=== PATIENT | female | born 1980 | race Caucasian/White ===

== ENCOUNTER 2016-11-22 16:21 | Emergency (ER) | payer MEDICAID, OTHER ==
[~2016-11-22] VITALS: Ht 162.6 cm; Wt 81.6 kg
--- OUTSIDE RECORDS SUMMARY | 2016-11-22 16:27 | XMS REPORT | Clinical Summary ---
Author Author [facility] Organization [facility] Address Unknown Phone Unavailable Care Team Providers Care Team Psychologist Name Role Phone PCP Unavailable Source Comments Some departments are not documenting in the electronic medical record. If you do not see the information that you expected, contact Release of Information in the Health Information Management department at [phone] for further assistance in locating additional records.[facility] Allergies Not on File Current Medications Not on file Active Problems Not on file Social History Tobacco Use Types Packs/Day Years Used Date Never Assessed Sex Assigned at Date Recorded Not on file Last Filed Vital Signs Not on file Plan of Treatment Health Maintenance Due Date Last Done Comments PHYSICAL (COMPREHENSIVE) 02/02/1988 EXAM PERTUSSIS VACCINE 02/02/1992 TETANUS VACCINE 1998 CERVICAL CANCER SCREENING 2011 INFLUENZA VACCINE 12/15/2016 Results Not on filefrom Last 3 Months
--- NOTE | 2016-11-22 16:49 | ED Neurological Problem ---
General Stated Complaint: RT ARM PAIN Source: patient Exam Limitations: no limitations History of Present Illness Time seen by provider: 16:48 Initial Comments To ER with a one-week history of pain down both arms but primarily affecting the right arm which she reports to be weaker than the left. She states that she has a bad back. This occasionally flares up and causes her some sciatic type pains. No injury. Severity: moderate Allergies and Home Medications Allergies Coded Allergies: ketorolac (Unverified Allergy, Unknown, 08/19/15) Constitutional: see HPI Eyes: No Symptoms Reported Ears, Nose, Mouth, Throat: no symptoms reported Respiratory: no symptoms reported Cardiovascular: no symptoms reported Genitourinary: no symptoms reported Musculoskeletal: see HPI Skin: see HPI Psychiatric/Neurological: See HPI Past Hlxfjgb-Pyjnye-Bzpyws Hx Patient Social History Recent Foreign Travel: No Contact w/Someone Who Travel: No Surgeries HX Surgeries: Yes (back surgery) Surgeries: Section Respiratory Hx Respiratory Disorders: No Cardiovascular Hx Cardiac Disorders: No Neurological Hx Neurological Disorders: No Reproductive System Hx Reproductive Disorders: No Genitourinary Hx Genitourinary Disorders: No Gastrointestinal Hx Gastrointestinal Disorders: No Musculoskeletal Hx Musculoskeletal Disorders: No Endocrine Hx Endocrine Disorders: No Endocrine Disorders: Diabetes, Insulin dep HEENT HX ENT Disorders: No Cancer Hx Cancer: No Psychosocial Hx Psychiatric Problems: No Integumentary HX Skin/Integumentary Disorder: No Blood Transfusions Hx Blood Disorders: No Physical Exam Vital Signs Capillary Refill : General Appearance: WD/WN, no apparent distress HEENT: PERRL/EOMI, normal ENT inspection Neck: non-tender, full range of motion Respiratory: no respiratory distress, no accessory muscle use Gastrointestinal: normal bowel sounds, non tender, soft Extremities: normal range of motion, non-tender, other (right electrical experimental mechanic strength 4 out of 5, left electrical experimental mechanic strength 5 out of 5.) Neurologic/Psychiatric: alert, normal mood/affect, oriented x 3 Crainal Nerves: normal hearing, normal speech, PERRL Motor/Sensory: other (Left forearm is reported to be very sensitive to even light touch) Skin: normal color, warm/dry Departure Impression Impression: Primary Impression: Cervical radiculopathy Disposition: 01 HOME, SELF-CARE Condition: Stable Departure-Patient Inst. Decision time for Depature: 16:50 Referrals: [facility] (PCP/Family) Primary Care Physician Patient Instructions: Radiculopathy Add. Discharge Instructions: 1. Medication as directed 2. Return to ER for any concerns 3. Follow-up with [facility] to discuss an MRI if they feel this is appropriate. Scripts Gabapentin (Gabapentin) 300 Mg Capsule 300 MG PO TID, #30 CAP Prov: LEONARDO EVANS APRN 11/22/16 Prednisone (Prednisone) 20 Mg Tab 40 MG PO DAILY, #8 TAB Prov: LEONARDO EVANS APRN 11/22/16 LEONARDO EVANS APRN Nov 22, 2016 16:49
[2016-11-22] MEDS ORDERED: GABA-488 PO (16:51)
[2016-11-22] MEDS ORDERED: PRD20T PO (16:51)
[2016-11-22 17:01] VITALS: BP 152/106
== END 2016-11-22 17:01 | disposition home or self-care (01) ==
LOC: EDUNIT# 16:21 → ER 16:23
DX: M54.12 Radiculopathy, cervical region (principal); E11.9 Type 2 diabetes mellitus without complications; Z87.59 Personal history of other complications of pregnancy, childbirth and the puerperium
CPT/HCPCS: 99281

== ENCOUNTER 2017-07-10 16:24 | Observation (INO) | payer SELFPAY ==
[~2017-07-10] VITALS: Ht 157.5 cm; Wt 69.9 kg
[~2017-07-10 16:24] MED LIST: GABA-488 PO; PRD20T PO
--- OUTSIDE RECORDS SUMMARY | 2017-07-10 16:30 | XMS REPORT ---
Author Author [facility] Address [address] [place] [address] Care Team Providers Care Collector Of Port Name Role Phone KIAN GONZALEZ Unavailable PROBLEMS Unknown Problems ALLERGIES No Information SOCIAL HISTORY Never Assessed PLAN OF CARE VITAL SIGNS MEDICATIONS Unknown Medications RESULTS No Results PROCEDURES No Known procedures IMMUNIZATIONS No Known Immunizations MEDICAL (GENERAL) HISTORY Type Description Date Medical History type II diabetes Medical History diabetic nephropathy
--- OUTSIDE RECORDS SUMMARY | 2017-07-10 16:30 | XMS REPORT ---
Author Author KIAN [facility]ALEZ [facility] Address [address] [place] [address] Care Team Providers Care Mail Handler Sorter Name Role Phone KIAN GONZALEZ Unavailable PROBLEMS Unknown Problems ALLERGIES No Information SOCIAL HISTORY Never Assessed PLAN OF CARE VITAL SIGNS MEDICATIONS Unknown Medications RESULTS No Results PROCEDURES No Known procedures IMMUNIZATIONS No Known Immunizations MEDICAL (GENERAL) HISTORY Type Description Date Medical History type II diabetes Medical History diabetic nephropathy
--- OUTSIDE RECORDS SUMMARY | 2017-07-10 16:30 | XMS REPORT | Clinical Summary ---
Author Author [facility] Organization [facility] Address Unknown Phone Unavailable Care Team Providers Care Community Health Outreach Worker Name Role Phone Alfred Diaz MD PCP Unavailable Source Comments Some departments are not documenting in the electronic medical record. If you do not see the information that you expected, contact Release of Information in the Health Information Management department at [phone] for further assistance in locating additional records.[facility] Allergies Not on File Current Medications Not on file Active Problems Not on file Social History Tobacco Use Types Packs/Day Years Used Date Never Assessed Sex Assigned at Date Recorded Not on file Last Filed Vital Signs Not on file Plan of Treatment Health Maintenance Due Date Last Done Comments PHYSICAL (COMPREHENSIVE) 02/02/1988 EXAM PERTUSSIS VACCINE 02/02/1992 HIV SCREENING 02/02/1996 TETANUS VACCINE 1998 CERVICAL CANCER SCREENING 2011 INFLUENZA VACCINE 01/14/2018 Results Not on filefrom Last 3 Months
--- OUTSIDE RECORDS SUMMARY | 2017-07-10 16:31 | XMS REPORT ---
Author Author KIAN Bernal Organization [facility] Address [address] [place] [address] Care Team Providers Care Suspender Cutter Name Role Phone KIAN Bernal Unavailable PROBLEMS Unknown Problems ALLERGIES Substance Reaction Event Type Date Status Adhesive Bandages Unknown Drug Allergy August, Active Toradol Unknown Non Drug Allergy August, Active ENCOUNTERS Encounter Location Date Diagnosis [facility] [id number], [place] [address] August, [facility] [id number], [place] [address] August, [facility] [id number], [place] [address] August, Acute vaginitis N76.0 ; Trichomonas vaginitis A59.01 and Vaginal discharge N89.8 IMMUNIZATIONS No Known Immunizations SOCIAL HISTORY Never Assessed REASON FOR VISIT possible rash- white bumps on vagina for about a week- no itching or burning JStrasserRN PLAN OF CARE Activity Details Follow Up prn Reason: VITAL SIGNS Height 62 in 2016-08-29 Weight 152.4 lbs 2016-08-29 Temperature 98.4 degrees Fahrenheit 2016-08-29 Heart Rate 100 bpm 2016-08-29 Respiratory Rate 20 2016-08-29 BMI 27.87 kg/m2 2016-08-29 Blood pressure systolic 132 mmHg 2016-08-29 Blood pressure diastolic 98 mmHg 2016-08-29 MEDICATIONS Medication Instructions Dosage Frequency Start Date End Date Duration Status Metformin HCl 500 MG Orally Twice a day 1 tablet with meals 12h Active Gabapentin 400 MG Orally Three times a day 1 capsule 8h Active Clindamycin HCl 300 MG Orally BID 1 capsule 12h August, August, 7 days Active Levemir FlexTouch 100 UNIT/ML Subcutaneous HS 12 Units Active Novolin 70/30 PenFill Active Metronidazole 500 MG Orally once now 4 tablets now August, August, 1 days Active RESULTS Name Result Date Reference Range CULTURE, GENITAL 2016-08-29 Genital Culture, Routine Final report Result 1 Yeast isolated. Result 2 Result 3 PAP TEST W/ HPV REGARDLESS 2016-08-29 DIAGNOSIS: Specimen adequacy: Clinician provided ICD10: Performed by: QC reviewed by: . . Pathologist provided ICD10: Note: HPV, high-risk Negative Negative PDF Report 2016-08-29 PDF Report1 LCLS CULTURE, GENITAL 2016-08-29 Genital Culture, Routine Final report Result 1 Yeast isolated. Result 2 Result 3 PAP TEST W/ HPV REGARDLESS 2016-08-29 DIAGNOSIS: Specimen adequacy: Clinician provided ICD10: Performed by: QC reviewed by: . . Pathologist provided ICD10: Note: HPV, high-risk Negative Negative GC/CHLAM PROBE (STATE) 2016-08-29 CHLAMYDIA Negative GC Negative PDF Report 2016-08-29 PDF Report1 LCLS CULTURE, GENITAL 2016-08-29 Genital Culture, Routine Final report Result 1 Yeast isolated. Result 2 Result 3 PAP TEST W/ HPV REGARDLESS 2016-08-29 DIAGNOSIS: Specimen adequacy: Clinician provided ICD10: Performed by: QC reviewed by: . . Pathologist provided ICD10: Note: HPV, high-risk Negative Negative GC/CHLAM PROBE (STATE) 2016-08-29 CHLAMYDIA Negative GC Negative TRICHOMONAS (IN HOUSE) 2016-08-29 TRICHOMONAS positive Control Lot # Exp date PDF Report 2016-08-29 PDF Report1 LCLS BACTERIAL VAGINOSIS (IN HOUSE) 2016-08-29 RESULTS positive Control Lot # Exp date PROCEDURES Procedure Date Ordered Result Body Site SCHROEDER VAG, DNA, DIR PROBE August 29, 2016 TRICHOMONAS ASSAY W/OPTIC August 29, 2016 SPECIMEN HANDLING August 29, 2016 CULTURE, BACTERIA, OTHER August 29, 2016 No Charge August 29, 2016 INSTRUCTIONS MEDICATIONS ADMINISTERED No Known Medications MEDICAL (GENERAL) HISTORY Type Description Date Medical History type II diabetes Medical History diabetic nephropathy
[2017-07-10] MEDS ORDERED: NS IV 1000 ML 1,000 ML IV ONE (16:33)
--- NOTE | 2017-07-10 16:40 | ED General ---
General Stated Complaint: ELEVATED BLOOD SUGAR, CONFUSION Source of Information: Patient Exam Limitations: Physical Impairments History of Present Illness Date Seen by Provider: Jul 10, 2017 Time Seen by Provider: 16:25 Initial Comments Here from [facility] with report of high blood sugar in the clinic. Patient has altered mental status which limits the history. She does answer to her name and knows her date of . She is confused. It does appear that she has been seen both at the [facility] or ER at [place] and at [facility] today in follow-up. Blood sugar has been elevated. It was 200 read on 2 occasions at the clinic today and she was given 10 units of insulin subcutaneous. EMS did show blood sugar 421. Patient remains confused. EMS reports that she has a mild temperature. Unsure of underlying etiology. It does appear that she has some history of noncompliance with her diabetes medication regimen. Timing/Duration: 1-3 Hours Severity: Moderate Associated Systoms: No Nausea/Vomiting, Weakness Allergies and Home Medications Allergies Coded Allergies: ketorolac (Unverified Allergy, Unknown, 08/19/15) Home Medications Gabapentin 300 Mg Capsule, 300 MG PO TID Prescribed by: LEONARDO EVANS on 11/22/161650 Prednisone 20 Mg Tab, 40 MG PO DAILY Prescribed by: LEONARDO EVANS on 11/22/161650 Patient Home Medication List Home Medication List Reviewed: Yes Constitutional: see HPI Psychiatric/Neurological: See HPI Other Unable to complete review of systems due to altered mental status. All Other Systems Reviewed Negative Unless Noted: No Past Omkmhce-Jijxfd-Qbnmoi Hx Patient Social History Smoking Status: Current Everyday Smoker Type Used: Cigarettes 2nd Hand Smoke Exposure: Yes Recent Hopitalizations: No Seasonal Allergies Seasonal Allergies: No Surgeries History of Surgeries: Yes (back surgery, cyst removal) Surgeries: Breast, Section, Tubal Ligation Respiratory History of Respiratory Disorde: No Cardiovascular History of Cardiac Disorders: Yes Cardiac Disorders: Hypertension Neurological History of Neurological Disord: Yes Neurological Disorders: Neuropathy Reproductive System Hx Reproductive Disorders: No Female Reproductive Disorders: Ovarian Cyst Genitourinary History of Genitourinary Disor: No Gastrointestinal History of Gastrointestinal Di: No Musculoskeletal History of Musculoskeletal Dis: No Endocrine History of Endocrine Disorders: Yes Endocrine Disorders: Diabetes, Insulin dep HEENT History of HEENT Disorders: No Cancer History of Cancer: No Psychosocial History of Psychiatric Problem: No Integumentary History of Skin or Integumenta: No Blood Transfusions History of Blood Disorders: No Family Medical History Other History per records as patient unable to give history Physical Exam Vital Signs Vital Signs - First Documented 07/10/17 16:25 Temp 98.1 Pulse 99 Resp 14 B/P (MAP) 132/101 (111) Pulse Ox 97 O2 Delivery Room Air Capillary Refill : General Appearance: No Apparent Distress, WD/WN HEENT: Pharynx Normal, Other (pupils pinpoint bilateral) Neck: Non Tender, Supple Respiratory: Lungs Clear, Normal Breath Sounds Cardiovascular: Regular Rate, Rhythm, No Murmur, Tachycardia Gastrointestinal: Non Tender, Soft Back: Normal Inspection, No CVA Tenderness, No Vertebral Tenderness Extremity: Normal Range of Motion, Non Tender Neurologic/Psychiatric: Alert, Oriented x3 Skin: Normal Color, Warm/Dry Focused Exam Evaluation Lactate Level Laboratory Tests 07/10/17 16:38: Lactic Acid Level 1.85 Lactic Acid Level Laboratory Tests Test 07/10/17 16:38 Lactic Acid Level 1.85 MMOL/L (0.50-2.00) Progress/Results/Core Measures Suspected Sepsis SIRS Temperature: Pulse: Respiratory Rate: Laboratory Tests 07/10/17 16:38: White Blood Count 9.3 Blood Pressure / Mean: Laboratory Tests 07/10/17 16:38: Lactic Acid Level 1.85 Laboratory Tests 07/10/17 16:38: Creatinine 0.65, INR Comment 0.9, Platelet Count 336, Total Bilirubin 0.4 Results/Orders Lab Results Laboratory Tests Test 07/10/17 16:38 07/10/17 17:18 07/10/17 17:19 07/10/17 18:02 Range/Units White Blood Count 9.3 4.3-11.0 10^3/uL Red Blood Count 4.89 4.35-5.85 10^6/uL Hemoglobin 13.8 11.5-16.0 G/DL Hematocrit 40 35-52 % Mean Corpuscular Volume 82 80-99 FL Mean Corpuscular Hemoglobin 28 25-34 PG Mean Corpuscular Hemoglobin Concent 35 32-36 G/DL Red Cell Distribution Width 14.5 10.0-14.5 % Platelet Count 336 130-400 10^3/uL Mean Platelet Volume 9.8 7.4-10.4 FL Neutrophils (%) (Auto) 64 42-75 % Lymphocytes (%) (Auto) 26 12-44 % Monocytes (%) (Auto) 6 0-12 % Eosinophils (%) (Auto) 4 0-10 % Basophils (%) (Auto) 0 0-10 % Neutrophils # (Auto) 5.9 1.8-7.8 X 10^3 Lymphocytes # (Auto) 2.4 1.0-4.0 X 10^3 Monocytes # (Auto) 0.6 0.0-1.0 X 10^3 Eosinophils # (Auto) 0.4 H 0.0-0.3 10^3/uL Basophils # (Auto) 0.0 0.0-0.1 10^3/uL Prothrombin Time 12.6 12.2-14.7 SEC INR Comment 0.9 0.8-1.4 Activated Partial Thromboplast Time 32 24-35 SEC Sodium Level 134 L 135-145 MMOL/L Potassium Level 5.1 H 3.6-5.0 MMOL/L Chloride Level 102 98-107 MMOL/L Carbon Dioxide Level 24 21-32 MMOL/L Anion Gap 8 5-14 MMOL/L Blood Urea Nitrogen 10 7-18 MG/DL Creatinine 0.65 0.60-1.30 MG/DL Estimat Glomerular Filtration Rate > 60 BUN/Creatinine Ratio 15 Glucose Level 340 H 70-105 MG/DL Lactic Acid Level 1.85 0.50-2.00 MMOL/L Calcium Level 9.2 8.5-10.1 MG/DL Phosphorus Level 3.8 2.3-4.7 MG/DL Magnesium Level 2.2 1.8-2.4 MG/DL Total Bilirubin 0.4 0.1-1.0 MG/DL Aspartate Amino Transf (AST/SGOT) 21 5-34 U/L Alanine Aminotransferase (ALT/SGPT) 11 0-55 U/L Alkaline Phosphatase 119 40-136 U/L Troponin I < 0.30 <0.30 NG/ML C-Reactive Protein High Sensitivity 0.38 0.00-0.50 MG/DL Total Protein 7.7 6.4-8.2 GM/DL Albumin 3.6 3.2-4.5 GM/DL TSH [place] Testing 0.87 0.35-4.94 UIU/ML Urine Color YELLOW Urine Clarity CLEAR Urine pH 6 5-9 Urine Specific [place] 1.015 L 1.016-1.022 Urine Protein 2+ H NEGATIVE Urine Glucose (UA) 4+ H NEGATIVE Urine Ketones NEGATIVE NEGATIVE Urine Nitrite NEGATIVE NEGATIVE Urine Bilirubin NEGATIVE NEGATIVE Urine Urobilinogen NORMAL NORMAL MG/DL Urine Leukocyte Esterase 1+ H NEGATIVE Urine RBC (Auto) 1+ H NEGATIVE Urine RBC NONE /HPF Urine WBC 5-10 H /HPF Urine Squamous Epithelial Cells 2-5 /HPF Urine Crystals NONE /LPF Urine Bacteria MODERATE H /HPF Urine Casts NONE /LPF Urine Mucus NEGATIVE /LPF Urine Culture Indicated YES Urine Test NEGATIVE NEGATIVE Urine Opiates Screen NEGATIVE NEGATIVE Urine Oxycodone Screen NEGATIVE NEGATIVE Urine Methadone Screen NEGATIVE NEGATIVE Urine Propoxyphene Screen NEGATIVE NEGATIVE Urine Barbiturates Screen NEGATIVE NEGATIVE Ur Tricyclic Antidepressants Screen NEGATIVE NEGATIVE Urine Phencyclidine Screen NEGATIVE NEGATIVE Urine Amphetamines Screen NEGATIVE NEGATIVE Urine Methamphetamines Screen NEGATIVE NEGATIVE Urine Benzodiazepines Screen POSITIVE H NEGATIVE Urine Cocaine Screen NEGATIVE NEGATIVE Urine Cannabinoids Screen NEGATIVE NEGATIVE Glucometer 221 H 70-110 MG/DL My Orders Orders - NESSA MIJARES MD Cbc With Automated Diff (07/10/17 16:33) Comprehensive Metabolic Panel (07/10/17 16:33) Lactic Acid Analyzer (07/10/17 16:33) Blood Culture (07/10/17 16:33) Sputum Culture (07/10/17 16:33) Ua Culture If Indicated (07/10/17 16:33) Protime With Inr (07/10/17 16:33) Partial Thromboplastin Time (07/10/17 16:33) Chest 1 View, Ap/Pa Only (07/10/17 16:33) O2 (07/10/17 16:33) Saline Lock/Iv-Start (07/10/17 16:33) Vital Signs Adult Sepsis Patie Q1H (07/10/17 16:33) Remove Rings In Anticipation O (07/10/17 16:33) Thyroid Analyzer (07/10/17 16:33) Hs C Reactive Protein (07/10/17 16:33) Magnesium (07/10/17 16:33) Phosphorus (07/10/17 16:33) Ns Iv 1000 Ml (Sodium Chloride 0.9%) (07/10/17 16:33) Hcg,Qualitative Urine (07/10/17 17:26) Urine Culture (07/10/17 17:18) Drug Screen Stat (Urine) (07/10/17 17:47) Ceftriaxone Injection (Rocephin Injectio (07/10/17 18:00) Ekg Tracing (07/10/17 17:58) Troponin I (07/10/17 17:58) Acetaminophen Tablet (Tylenol Tablet) (07/10/17 18:16) Medications Given in ED Current Medications Medications Dose Ordered Sig/Tomasz Route Start Time Stop Time Status Last Admin Dose Admin Ceftriaxone Sodium 1000 mg/ Sodium Chloride 100 ml @ 200 mls/hr ONCE ONCE IV 07/10/17 18:00 07/10/17 18:29 07/10/17 18:05 200 MLS/HR Sodium Chloride 1,000 ml @ 0 mls/hr Q0M ONCE IV 07/10/17 16:33 07/10/17 16:37 DC 07/10/17 16:30 1,000 MLS/HR Vital Signs/I&O Vital Sign - Last 12Hours 07/10/17 16:25 Temp 98.1 Pulse 99 Resp 14 B/P (MAP) 132/101 (111) Pulse Ox 97 O2 Delivery Room Air Capillary Refill : Progress Note : Progress Note Seen and evaluated. IV by EMS with saline 500 mL bolus running. Labs, UA, blood cultures, lactic acid and UDS ordered. Saline chest x-ray ordered. 1800 : Is improving. Patient did receive additional liter of normal saline. Rocephin 1 g IV ordered for urinary tract infection. 180: I discussed the case with Dr. Stallings, on-call for [facility]. Given patient's history of persistently uncontrolled hyperglycemia and the altered mental status today, we will admit the patient for observation and initiate sliding scale insulin to evaluate insulin dosing requirements. EKG and troponin added. EKG does not show any significant findings. I did discuss the admission with the patient and her friends. She accepts and agrees with admission. Tylenol 1 g by mouth given for headache. ECG Initial ECG Impression Date: Jul 10, 2017 Initial ECG Impression Time: 18:12 Initial ECG Rate: 94 Initial ECG Rhythm: Normal Sinus Initial ECG Intervals: Normal Initial ECG Impression: Normal Initial ECG Comparisson: Unchanged Comment Sinus rhythm with normal axis. No evidence of ST elevation ND. Similar to previous. Interpreted by me. Diagnostic Imaging Diagonstic Imaging: Xray Plain Films/CT/US/NM/MRI: chest Comments NAME: [facility] REC#: [id number] PT STATUS: REG ER : 1980 PHYSICIAN: NESSA MIJARES MD ADMIT DATE: 07/10/17/ER Signed Date of Exam: 07/10/17 CHEST 1 VIEW, AP/PA ONLY INDICATION: Elevated blood sugar. TIME OF EXAM: 5:32 p.m. COMPARISON: Correlation is made with prior study from 08/19/2015. The heart size is normal. The pulmonary vascularity is unremarkable. The lungs are clear. No infiltrate, effusion or pneumothorax is detected. IMPRESSION: No acute cardiopulmonary process is detected. Dictated by: Dictated on workstation # [id number] Dict: 07/10/171734 Trans: 07/10/171816 Interpreted by: ANGELICA JOYCE MD Electronically signed by: ANGELICA JOYCE MD 07/10/171816 Departure Communication (Admissions) Time/Spoke to Admitting Phy: 18:04 Impression Impression: Primary Impression: Uncontrolled diabetes mellitus with hyperglycemia Qualified Codes: E13.65 - Other specified diabetes mellitus with hyperglycemia ; Z79.4 - nursing home (current) use of insulin Additional Impression: Urinary tract infection Qualified Codes: N30.00 - Acute cystitis without hematuria Disposition: ADMITTED INPATIENT Condition: Stable Admissions Decision to Admit Reason: Admit from ER (General) Decision to Admit/Date: Jul 10, 2017 Time/Decision to Admit Time: 18:26 Departure-Patient Inst. Referrals: [facility] (PCP/Family) Primary Care Physician NESSA MIJARES MD Jul 10, 2017 16:40
[2017-07-10 16:49] LABS: BASOPHILS % (AUTO) 0 % (0-10); EOSINOPHILS # (AUTO) 0.4 10^3/uL (0.0-0.3); EOSINOPHILS % (AUTO) 4 % (0-10); HEMATOCRIT 40 % (35-52); HEMOGLOBIN 13.8 G/DL (11.5-16.0); LYMPHOCYTES # (AUTO) 2.4 X 10^3 (1.0-4.0); LYMPHOCYTES % (AUTO) 26 % (12-44); MEAN CORPUSCULAR HEMOGLOBIN 28 PG (25-34); MEAN CORPUSCULAR HGB CONC 35 G/DL (32-36); MEAN CORPUSCULAR VOLUME 82 FL (80-99); MEAN PLATELET VOLUME 9.8 FL (7.4-10.4); MONOCYTES # (AUTO) 0.6 X 10^3 (0.0-1.0); MONOCYTES % (AUTO) 6 % (0-12); NEUTROPHILS # (AUTO) 5.9 X 10^3 (1.8-7.8); NEUTROPHILS % (AUTO) 64 % (42-75); PLATELET COUNT 336 10^3/uL (130-400); RED BLOOD COUNT 4.89 10^6/uL (4.35-5.85); RED CELL DISTRIBUTION WIDTH 14.5 % (10.0-14.5); WHITE BLOOD COUNT 9.3 10^3/uL (4.3-11.0)
[2017-07-10 17:01] LABS: INR 0.9 (0.8-1.4); PROTHROMBIN TIME PATIENT 12.6 SEC (12.2-14.7)
[2017-07-10 17:11] LABS: ALANINE AMINOTRANSFERASE 11 U/L (0-55); ALBUMIN 3.6 GM/DL (3.2-4.5); ALKALINE PHOSPHATASE 119 U/L (40-136); BILIRUBIN,TOTAL 0.4 MG/DL (0.1-1.0); BUN/CREATININE RATIO 15; CALCIUM 9.2 MG/DL (8.5-10.1); CARBON DIOXIDE 24 MMOL/L (21-32); CHLORIDE 102 MMOL/L (98-107); CREATININE SERUM 0.65 MG/DL (0.60-1.30); GFR ESTIMATED > 60; GLUCOSE 340 MG/DL (70-105); MAGNESIUM 2.2 MG/DL (1.8-2.4); PHOSPHORUS 3.8 MG/DL (2.3-4.7); POTASSIUM 5.1 MMOL/L (3.6-5.0); SODIUM 134 MMOL/L (135-145); TOTAL PROTEIN 7.7 GM/DL (6.4-8.2)
[2017-07-10 17:30] LABS: BILIRUBIN,URINE NEGATIVE (NEGATIVE); CLARITY,URINE CLEAR; COLOR,URINE YELLOW; GLUCOSE, URINE (UA) 4+ (NEGATIVE); KETONES,URINE NEGATIVE (NEGATIVE); LEUKOCYTE ESTERASE ,URINE 1+ (NEGATIVE); NITRITE,URINE NEGATIVE (NEGATIVE); PH,URINE 6 (5-9); PROTEIN,URINE 2+ (NEGATIVE); UROBILINOGEN,URINE NORMAL (NORMAL)
[2017-07-10 17:31] LABS: TSH (THYROID ANALYZER) 0.87 UIU/ML (0.35-4.94)
--- NOTE | 2017-07-10 17:38 | Diagnostic Imaging Report ---
INDICATION: Elevated blood sugar. TIME OF EXAM: 5:32 p.m. COMPARISON: Correlation is made with prior study from 08/19/2015. The heart size is normal. The pulmonary vascularity is unremarkable. The lungs are clear. No infiltrate, effusion or pneumothorax is detected. IMPRESSION: No acute cardiopulmonary process is detected. Dictated by: Dictated on workstation # [id number]
[2017-07-10 17:39] LABS: BACTERIA,URINE MODERATE /HPF
[2017-07-10] MEDS ORDERED: cefTRIAXone INJECTION 1,000 MG in NS (IVPB) 100 ML IV ONE (18:00)
[2017-07-10 18:03] LABS: AMPHETAMINE SCREEN, URINE NEGATIVE (NEGATIVE); BARBITURATE SCREEN URINE NEGATIVE (NEGATIVE); BENZODIAZEPINES SCREEN URINE POSITIVE (NEGATIVE); CANNABINOID SCREEN, URINE NEGATIVE (NEGATIVE); COCAINE SCREEN URINE NEGATIVE (NEGATIVE); METHADONE STAT NEGATIVE (NEGATIVE); METHAMPHETAMINE SCREEN URINE S NEGATIVE (NEGATIVE); OPIATE SCREEN URINE NEGATIVE (NEGATIVE); OXYCODONE STAT NEGATIVE (NEGATIVE); PROPOXYPHENE STAT NEGATIVE (NEGATIVE); TRICYCLIC ANTIDEPRESSANTS SCRE NEGATIVE (NEGATIVE)
[2017-07-10] MEDS ORDERED: ACETAMINOPHEN 500 MG TAB (TYLENOL) PO STA (18:16)
--- OUTSIDE RECORDS SUMMARY | 2017-07-10 18:42 | XMS REPORT | Clinical Summary ---
Author Author [facility] Organization [facility] Address Unknown Phone Unavailable Care Team Providers Care Repeat Chief Name Role Phone Alfred Diaz MD PCP Unavailable Source Comments Some departments are not documenting in the electronic medical record. If you do not see the information that you expected, contact Release of Information in the Health Information Management department at [phone] for further assistance in locating additional records.[facility] Allergies Not on File Current Medications [...]
[2017-07-10 19:50] VITALS: BP 139/92
[2017-07-10] MEDS ORDERED: NS IV 1000 ML 1,000 ML ONE (20:02)
[2017-07-10] MEDS ORDERED: CATHETER FLUSH 10 ML SYR IV PRN (20:15)
[2017-07-10] MEDS ORDERED: ACETAMINOPHEN 500 MG TAB (TYLENOL) PO PRN (20:15)
[2017-07-10] MEDS: inSUlin (REGULAR) HUMAN 1 UNIT/0.01 ML (CHARGE PER UNIT) SC SCH (21:50)
[2017-07-10] MEDS: NS IV 1000 ML 1,000 ML IV SCH (21:50)
[2017-07-11] VITALS: BP 136/77
[2017-07-11] MEDS ORDERED: METF1000 PO ×2 (02:10→11:16)
[2017-07-11] MEDS ORDERED: LABE100T2 PO ×2 (02:10→11:16)
[2017-07-11] MEDS ORDERED: [UNRECOGNIZED DRUG - CODE] MC (02:10)
[2017-07-11] MEDS ORDERED: ATOR80TA64 PO ×2 (02:10→11:16)
[2017-07-11] MEDS ORDERED: DULO30CA48 PO (02:10)
[2017-07-11] MEDS ORDERED: NAPR220C46 PO (02:10)
[2017-07-11] MEDS ORDERED: INSU100I23 SQ ×2 (02:10→11:16)
[2017-07-11] MEDS ORDERED: INSU100V5 SQ (02:10)
[2017-07-11] MEDS ORDERED: IBUPROFEN 800 MG (MOTRIN) TAB PO PRN (03:00)
[2017-07-11 03:22] LABS: BASOPHILS % (AUTO) 0 % (0-10); EOSINOPHILS # (AUTO) 0.4 10^3/uL (0.0-0.3); EOSINOPHILS % (AUTO) 4 % (0-10); HEMATOCRIT 35 % (35-52); HEMOGLOBIN 12.3 G/DL (11.5-16.0); LYMPHOCYTES # (AUTO) 3.4 X 10^3 (1.0-4.0); LYMPHOCYTES % (AUTO) 33 % (12-44); MEAN CORPUSCULAR HEMOGLOBIN 29 PG (25-34); MEAN CORPUSCULAR HGB CONC 35 G/DL (32-36); MEAN CORPUSCULAR VOLUME 83 FL (80-99); MEAN PLATELET VOLUME 9.8 FL (7.4-10.4); MONOCYTES # (AUTO) 0.6 X 10^3 (0.0-1.0); MONOCYTES % (AUTO) 6 % (0-12); NEUTROPHILS # (AUTO) 5.8 X 10^3 (1.8-7.8); NEUTROPHILS % (AUTO) 57 % (42-75); PLATELET COUNT 322 10^3/uL (130-400); RED BLOOD COUNT 4.27 10^6/uL (4.35-5.85); RED CELL DISTRIBUTION WIDTH 14.6 % (10.0-14.5); WHITE BLOOD COUNT 10.2 10^3/uL (4.3-11.0)
[2017-07-11 04:00] VITALS: BP 135/65
[2017-07-11] MEDS: NS IV 1000 ML 1,000 ML IV SCH (05:51)
[2017-07-11] MEDS: inSUlin (REGULAR) HUMAN 1 UNIT/0.01 ML (CHARGE PER UNIT) SC SCH ×2 (05:51→11:29)
[2017-07-11] MEDS ORDERED: INFLUENZA TRIvalent 2017-2018 0.5 ML/45 MCG SYR IM ONE (07:15)
[2017-07-11 08:00] VITALS: BP 127/74
[2017-07-11] MEDS ORDERED: cefTRIAXone 1 GM/NS 100 ML IVPB IV SCH ×2 (09:00)
[2017-07-11 09:37] LABS: BUN/CREATININE RATIO 25; CALCIUM 8.2 MG/DL (8.5-10.1); CARBON DIOXIDE 22 MMOL/L (21-32); CHLORIDE 108 MMOL/L (98-107); CREATININE SERUM 0.59 MG/DL (0.60-1.30); GFR ESTIMATED > 60; GLUCOSE 246 MG/DL (70-105); POTASSIUM 3.7 MMOL/L (3.6-5.0); SODIUM 136 MMOL/L (135-145)
[2017-07-11] MEDS ORDERED: FLUO20CA25 PO (11:16)
[2017-07-11] MEDS ORDERED: NITR-65 PO (11:16)
--- NOTE | 2017-07-11 11:20 | Discharge Instructions ---
Discharge [facility] Discharge Medications New, Converted or Re-Newed RX: Transmitted to Pharmacy New Medications: Nitrofurantoin Monohyd/M-Cryst (Macrobid 100 mg Capsule) 100 Mg Capsule 1 TAB PO BID for 3 Days, #6 CAP 0 Refills Changed Medications: Fluoxetine HCl (Fluoxetine HCl) 20 Mg Capsule 20 MG PO DAILY for 30 Days, #30 CAP 0 Refills (Changed from: Fluoxetine ( Fluoxetine HCl) 100 Gm Powder 200 Gm MC DAILY) Insulin Lispro (Humalog Kwikpen) 100 Unit/1 Ml Insuln.pen 10 UNIT SQ WM, #1 EA (Changed from: 8 UNIT) LAST FILLED 17 Labetalol HCl (Labetalol HCl) 100 Mg Tablet 100 MG PO BID, #60 TAB (Changed from: Q8H) Metformin HCl (Metformin HCl) 1,000 Mg Tablet 1000 MG PO BID WITH MEALS, #60 TAB 0 Refills (Changed from: Refills: ; Removed Instructions) Continued Medications: Atorvastatin Calcium (Lipitor) 80 Mg Tablet 80 MG PO DAILY, #30 TAB 0 Refills (This prescription has been renewed) LAST FILLED #30 17 Insulin Determir (Levemir) 1,000 Units/10 Ml Soln 15 UNITS SQ DAILY, EA LAST FILLED 03-30-17 Naproxen Sodium (Naproxen Sodium) 220 Mg Capsule 220 MG PO DAILY, CAP Patient Instructions Goal/Follow Up Appt: Follow up with Raghu Collins APRN 07/23 at 11 am. However, please call clinic with blood sugar readings in the next day or two so we can adjust insulin as needed. Patient Instructions: Prescriptions were sent to the pharmacy at [facility] for Prozac (fluoxetine), labetalol, Lipitor (atorvastatin) and metformin because based on last refill date they should be gone. Prescriptions were NOT sent for insulin due to your report that you have enough insulin to last until 07/23 and at that time a plan for obtaining insulin can be made. Go to clinic ([facility]) today after discharge and ask for Nathalia Slater to get a glucometer. [facility] to [facility] For: Fever, blood sugar not readable on meter Activity & Diet Discharge Diet: ADA Diet Copy Copies To 1: YOHANNES Gallegos BETHANY N MD Jul 11, 2017 11:20 am
--- NOTE | 2017-07-11 11:36 | Discharge Summary ---
Diagnosis/Chief Complaint Date of Admission Jul 10, 2017 at 6:37 pm Date of Discharge Jul 11, 2017 Admission Diagnosis Admission Diagnosis DMII with hyperglycemia Altered mental status Urinary tract infection Chronic back pain Chest pain Discharge Diagnosis DMII with hyperglycemia- blood sugar unreadable in clinic and remained unreadable after 10 units so she was sent to ER, found to have blood sugar in the 400s. Patient reported she has both Levemir (3 pens left) and Humalog (2 pens left) although she should be out because she uses sparingly when she thinks she may need it so she doesn't run out. She required 32 units of insulin in the 24 hours from yesterday am until today, she is typically supposed to be on 47 units daily at home, so dosing was only minimally changed on discharge- she was encouraged to use every scheduled dose because she has enough insulin until her follow-up appointment. Discharged on Levemir 15 units daily and Humalog 10 units TID with meals. Altered mental status- suspect secondary to hyperglycemia and urinary tract infection, resolved this morning. UDS positive for benzodiazepine, she denies use and does not know where a positive could have come from, and male visitor in her room reported that has happened before. Discussed that if she is unknowingly using a benzodiazepine that could cause confusion. Urinary tract infection- E coli in prelim culture, no sensitivity yet available on d/c, discharged with script for macrobid, but final culture results will need followed up Chronic back pain- she reports history of back surgery and up to 13 epidural injections with no benefit, follow-up outpatient Chest pain- chronic intermittent for over a year with reported history of stress test about a year ago that apparently did not show acute issues. EKG and troponins negative this admission. Discussed that she can be referred to Cardiology at her follow-up/establish care visit at [facility] for further evaluation, but pain may not be cardiac in nature. Chief Complaint/HPI Chief Complaint/HPI 37 yo female with history of uncontrolled diabetes and difficulty obtaining medications due to financial concerns presented to [facility] clinic for ER f/u from Lizeth Tobin. She states she was sent to ER from work due to chest pain which she has relatively often- a sharp pain in mid low chest/upper abdomen which is sometimes associated with left arm and hand numbness and sometimes tingling and pain in her entire body. She states she always has normal EKG and she had a stress test a year ago and was told she may have had a heart attack in the past, but when she requested Cardiology referral states her previous primary wanted to try medication first. Again at [facility] ER she had negative testing and was given information to follow-up at [facility] since she was unable to afford other clinic. At her clinic visit at [facility] she was noted to initially be normally responsive when roomed, but upon provider evaluation she was lethargic and poorly arousable for questions. Her blood sugar was too high to read, she was given 10 units of insulin in clinic and on recheck blood sugar was still too high to read so she was directed to the ER where work-up was unrevealing except for evidence of UTI and high blood sugar. Discharge Summary-OBS Procedures None. Discharge Physical Examination Allergies: Coded Allergies: coconut (Verified Allergy, Severe, anaphylactic reaction, 07/11/17) ketorolac (Unverified Allergy, Unknown, 08/19/15) Vitals & I&Os Intake and Output 07/11/17 00:00 Intake Total 500 ml Balance 500 ml Vital Sign - Last 12Hours Date Time Temp Pulse Resp B/P (MAP) Pulse Ox O2 Delivery O2 Flow Rate FiO2 07/11/17 09:00 Room Air 07/11/17 08:00 98.8 97 16 127/74 (91) 97 General Appearance: Alert, No Acute Distress Respiratory: Clear to Auscultation, Normal Air Movement Cardiovascular: Regular Rate, No Murmurs Abdominal: Normal Bowel Sounds, Soft, Other (ttp L mid abdomen) Extremities: No Edema Neuro: Normal Speech Psych/Mental Status: Mental Status NL Hospital Course See discharge diagnoses. Labs Laboratory Tests 07/10/17 16:38: White Blood Count 9.3, Red Blood Count 4.89, Hemoglobin 13.8, Hematocrit 40, Mean Corpuscular Volume 82, Mean Corpuscular Hemoglobin 28, Mean Corpuscular Hemoglobin Concent 35, Red Cell Distribution Width 14.5, Platelet Count 336, Mean Platelet Volume 9.8, Neutrophils (%) (Auto) 64, Lymphocytes (%) (Auto) 26, Monocytes (%) (Auto) 6, Eosinophils (%) (Auto) 4, Basophils (%) (Auto) 0, Neutrophils # (Auto) 5.9, Lymphocytes # (Auto) 2.4, Monocytes # (Auto) 0.6, Eosinophils # (Auto) 0.4H, Basophils # (Auto) 0.0, Prothrombin Time 12.6, INR Comment 0.9, Activated Partial Thromboplast Time 32, Sodium Level 134L, Potassium Level 5.1H, Chloride Level 102, Carbon Dioxide Level 24, Anion Gap 8, Blood Urea Nitrogen 10, Creatinine 0.65, Estimat Glomerular Filtration Rate > 60 , BUN/Creatinine Ratio 15, Glucose Level 340H, Lactic Acid Level 1.85, Calcium Level 9.2, Phosphorus Level 3.8, Magnesium Level 2.2, Total Bilirubin 0.4, Aspartate Amino Transf (AST/SGOT) 21, Alanine Aminotransferase (ALT/SGPT) 11, Alkaline Phosphatase 119, Troponin I < 0.30, C-Reactive Protein High Sensitivity 0.38, Total Protein 7.7, Albumin 3.6, TSH [place] Testing 0.87 07/10/17 17:18: Urine Color YELLOW, Urine Clarity CLEAR, Urine pH 6, Urine Specific [place] 1.015L, Urine Protein 2+H, Urine Glucose (UA) 4+H, Urine Ketones NEGATIVE, Urine Nitrite NEGATIVE, Urine Bilirubin NEGATIVE, Urine Urobilinogen NORMAL, Urine Leukocyte Esterase 1+H, Urine RBC (Auto) 1+H, Urine RBC NONE, Urine WBC 5- 10H, Urine Squamous Epithelial Cells 2-5, Urine Crystals NONE, Urine Bacteria MODERATEH, Urine Casts NONE, Urine Mucus NEGATIVE, Urine Culture Indicated YES, Urine Test NEGATIVE 07/10/17 17:19: Urine Opiates Screen NEGATIVE, Urine Oxycodone Screen NEGATIVE, Urine Methadone Screen NEGATIVE, Urine Propoxyphene Screen NEGATIVE, Urine Barbiturates Screen NEGATIVE, Ur Tricyclic Antidepressants Screen NEGATIVE, Urine Phencyclidine Screen NEGATIVE, Urine Amphetamines Screen NEGATIVE, Urine Methamphetamines Screen NEGATIVE, Urine Benzodiazepines Screen POSITIVEH, Urine Cocaine Screen NEGATIVE, Urine Cannabinoids Screen NEGATIVE 07/10/17 18:02: Glucometer 221H 07/10/17 20:04: Glucometer 184H 07/11/17 03:00: White Blood Count 10.2, Red Blood Count 4.27L, Hemoglobin 12.3, Hematocrit 35, Mean Corpuscular Volume 83, Mean Corpuscular Hemoglobin 29, Mean Corpuscular Hemoglobin Concent 35, Red Cell Distribution Width 14.6H, Platelet Count 322, Mean Platelet Volume 9.8, Neutrophils (%) (Auto) 57, Lymphocytes (%) (Auto) 33, Monocytes (%) (Auto) 6, Eosinophils (%) (Auto) 4, Basophils (%) (Auto) 0, Neutrophils # (Auto) 5.8, Lymphocytes # (Auto) 3.4, Monocytes # (Auto) 0.6, Eosinophils # (Auto) 0.4H, Basophils # (Auto) 0.0, Troponin I < 0.30 07/11/17 05:05: Glucometer 298H 07/11/17 09:08: Troponin I < 0.30, Sodium Level 136, Potassium Level 3.7, Chloride Level 108H, Carbon Dioxide Level 22, Anion Gap 6, Blood Urea Nitrogen 15, Creatinine 0.59L, Estimat Glomerular Filtration Rate > 60, BUN/Creatinine Ratio 25, Glucose Level 246H, Calcium Level 8.2L Microbiology 07/10/17 Urine Culture - Preliminary, Resulted Escherichia coli CXR 07/10/17 Unremarkable Discharge Instructions to patient/family Please see electronic discharge instructions given to patient. Discharge Medications Reviewed and agree with Discharge Medication list on patient's Discharge Instruction sheet Clinical Quality Measures DVT/VTE Risk/Contraindication: Risk Factor Score Per Nursin RFS Level Per Nursing on Admit: 2=Moderate Copy Copies To 1: YOHANNES Gallegos BETHANY N MD Jul 11, 2017 11:36 am
== END 2017-07-11 11:16 | disposition home or self-care (01) ==
LOC: EDUNIT# 16:24 → ER 16:25 → 4TH 18:37 → UNDOADMOB 18:37 → 4TH 19:00 → UNDODISOB 07-11 11:46
PROVIDERS: ADMIT Family Medicine; ATTEND Family Medicine
DX: E11.65 Type 2 diabetes mellitus with hyperglycemia (principal); N39.0 Urinary tract infection, site not specified; B96.20 Unspecified Escherichia coli [E. coli] as the cause of diseases classified elsewhere; R51 Headache; E11.40 Type 2 diabetes mellitus with diabetic neuropathy, unspecified; I10 Essential (primary) hypertension; F17.210 Nicotine dependence, cigarettes, uncomplicated; M54.9 Dorsalgia, unspecified; G89.29 Other chronic pain; R07.9 Chest pain, unspecified; Z79.4 Long term (current) use of insulin; Z79.899 Other long term (current) drug therapy; Z91.120 Patient's intentional underdosing of medication regimen due to financial hardship
CPT/HCPCS: 36415; 71045; 80048; 80053; 80306; 81000; 82962; 83036; 83605; 83735; 84100; 84443; 84484; 84703; 85025; 85610; 85730; 86141; 87040; 87088; 87186; 93005; 96361; 96365; G0378

== ENCOUNTER 2017-10-22 22:50 | Inpatient (IN) | payer SELFPAY ==
[~2017-10-22] VITALS: Ht 157.5 cm; Wt 79.6 kg
[~2017-10-22 22:50] MED LIST changes: +ATOR80TA64 PO; +DULO30CA48 PO; +FLUO20CA25 PO; +INSU100I23 SQ; +INSU100V5 SQ; +LABE100T6 PO; +METF10002 PO; +NAPR220C46 PO; +NITR-65 PO; +[UNRECOGNIZED DRUG - CODE] MC
[2017-10-22 23:26] LABS: BASOPHILS # (AUTO) 0.2 10^3/uL (0.0-0.1); BASOPHILS % (AUTO) 2 % (0-10); EOSINOPHILS # (AUTO) 0.1 10^3/uL (0.0-0.3); EOSINOPHILS % (AUTO) 1 % (0-10); HEMATOCRIT 35 % (35-52); LYMPHOCYTES # (AUTO) 6.6 X 10^3 (1.0-4.0); LYMPHOCYTES % (AUTO) 71 % (12-44); MEAN CORPUSCULAR HEMOGLOBIN 28 PG (25-34); MEAN CORPUSCULAR HGB CONC 34 G/DL (32-36); MEAN CORPUSCULAR VOLUME 81 FL (80-99); MEAN PLATELET VOLUME 9.9 FL (7.4-10.4); MONOCYTES % (AUTO) 11 % (0-12); NEUTROPHILS # (AUTO) 1.3 X 10^3 (1.8-7.8); NEUTROPHILS % (AUTO) 14 % (42-75); PLATELET COUNT 218 10^3/uL (130-400); RED BLOOD COUNT 4.35 10^6/uL (4.35-5.85); RED CELL DISTRIBUTION WIDTH 15.2 % (10.0-14.5); WHITE BLOOD COUNT 9.2 10^3/uL (4.3-11.0)
[2017-10-22] MEDS ORDERED: ASPIRIN 81 MG CHEW (CHILDREN'S ASA) PO ONE (23:30)
--- NOTE | 2017-10-22 23:30 | ED Chest Pain ---
General Chief Complaint: Chest Pain Stated Complaint: SOB, CP Nursing Triage Note: Patient reports SOA and chest pain x 2 days ago. patient reports was evaluated here recently for lower extremity swelling and given a 'water pill' patient reports that she is not voiding much. Nursing Sepsis Screen: No Definite Risk Source: patient Exam Limitations: no limitations History of Present Illness Date Seen by Provider: Oct 22, 2017 Time Seen by Provider: 23:15 Initial Comments Here with report of 2 weeks of shortness of air and intermittent sharp chest pain that is central and nonradiating as well as swelling of her legs. She was seen at the clinic the other day and started on Lasix 20 mg daily for a total of 3 doses. She only took 2 of those and stopped because she was actually urinating last then more and that concerned her. She does report drinking lots of water. She is also diabetic and notes that her sugars have been high. She complains of some dysuria and suprapubic pain with urination. She does not believe she has a urinary tract infection. Denies fevers or chills but is short of breath and reports that it's worse recently. She is working on setting up appointment with Dr. Hernandez for further evaluation as well. Timing/Duration: other (2 weeks) Severity/Quality: moderate, sharp Location: central Radiation: no radiation Prior CP/Workup: no prior cardiac workup Modifying Factors: worse with exercise; improves with rest ASA po ENTERTAINMENT MUSICIAN: No NTG SL ENTERTAINMENT MUSICIAN: No Associated Symptoms: abdominal pain; No back pain; edema, fatigue; No fever/ chills, No nausea/vomiting; shortness of breath Allergies and Home Medications Allergies Coded Allergies: coconut (Verified Allergy, Severe, anaphylactic reaction, 07/11/17) ketorolac (Unverified Allergy, Unknown, 08/19/15) Home Medications Atorvastatin Calcium 80 Mg Tablet, 80 MG PO DAILY LAST FILLED #30 03-30-17 Prescribed by: ERNESTO STALLINGS on 07/11/17 1116 Fluoxetine HCl 20 Mg Capsule, 20 MG PO DAILY Prescribed by: ERNESTO STALLINGS on 07/11/17 1116 Insulin Determir 1,000 Units/10 Ml Soln, 15 UNITS SQ DAILY, (Reported) LAST FILLED 03-30-17 Insulin Lispro 100 Unit/1 Ml Insuln.pen, 10 UNIT SQ WM LAST FILLED 12-15-17 Prescribed by: ERNESTO STALLINGS on 07/11/17 111 Labetalol HCl 100 Mg Tablet, 100 MG PO BID Prescribed by: ERNESTO STALLINGS on 07/11/17 111 Metformin HCl 1,000 Mg Tablet, 1,000 MG PO BID WITH MEALS Prescribed by: ERNESTO STALLINGS on 07/11/17 111 Naproxen Sodium 220 Mg Capsule, 220 MG PO DAILY, (Reported) Nitrofurantoin Monohyd/M-Cryst 100 Mg Capsule, 1 TAB PO BID Prescribed by: ERNESTO STALLINGS on 07/11/17 111 Patient Home Medication List Home Medication List Reviewed: Yes Review of Systems Constitutional: see HPI; No chills, No fever EENTM: No Symptoms Reported Respiratory: See HPI Cardiovascular: No Symptoms Reported; Denies Syncope Gastrointestinal: Abdominal Pain; Denies Diarrhea, Denies Nausea Genitourinary: Denies Burning, Denies Pain Musculoskeletal: No no symptoms reported Skin: no symptoms reported Psychiatric/Neurological: Anxiety; Denies Headache All Other Systems Reviewed Negative Unless Noted: Yes Past Lgbxrsf-Hracvr-Yjrlhg Hx Past Med/Social Hx: Reviewed Nursing Past Med/Soc Hx Patient Social History Alcohol Use: Denies Use Recreational Drug Use: No Smoking Status: Current Everyday Smoker Type Used: Cigarettes 2nd Hand Smoke Exposure: Yes Recent Foreign Travel: No Contact w/Someone Who Travel: No Recent Infectious Disease Expo: No Recent Hopitalizations: No Immunizations Up To Date Date of Pneumonia Vaccine: September 09, 2016 Seasonal Allergies Seasonal Allergies: No Past Medical History Surgeries: Yes (back surgery, cyst removal) Breast, Section, Tubal Ligation Respiratory: No Cardiac: No Hypertension Neurological: No Neuropathy Reproductive Disorders: No Female Reproductive Disorders: Ovarian Cyst Genitourinary: No Gastrointestinal: No Musculoskeletal: No Endocrine: Yes Diabetes, Insulin dep HEENT: No Cancer: No Psychosocial: No Integumentary: No Blood Disorders: No Family Medical History Reviewed Nursing Family Hx Diabetes mellitus 19 FATHER 19 MOTHER Physical Exam Vital Signs Vital Signs - First Documented 10/22/17 23:02 Temp 100.4 Pulse 112 Resp 24 B/P (MAP) 143/101 (115) Pulse Ox 97 Capillary Refill : Less Than 3 Seconds Height, Weight, BMI Height: 5', 2.00" Weight: 150lbs 0.0oz, [id number] Method:Stated ,28.2BMI General Appearance: No Apparent Distress, WD/WN HEENT: PERRL/EOMI, Pharynx Normal Neck: Non Tender, Supple Respiratory: No Respiratory Distress, Wheezing (. Trace expiratory wheezes) Cardiovascular: No Murmur, Tachycardia Gastrointestinal: Non Tender, Soft; No Guarding, No Rebound Extremity: Normal Range of Motion, Swelling (mild swelling bilateral feet and ankles) Neurologic/Psychiatric: Alert, Oriented x3 Skin: Normal Color, Warm/Dry Focused Exam Lactate Level 10/23/17 01:20: Lactic Acid Level Laboratory Tests Test 10/23/17 01:20 Progress/Results/Core Measures Results/Orders Lab Results Laboratory Tests Test 10/22/17 23:04 10/23/17 00:20 10/23/17 01:20 Range/Units White Blood Count 9.2 4.3-11.0 10^3/uL Red Blood Count 4.35 4.35-5.85 10^6/uL Hemoglobin 12.0 11.5-16.0 G/DL Hematocrit 35 35-52 % Mean Corpuscular Volume 81 80-99 FL Mean Corpuscular Hemoglobin 28 25-34 PG Mean Corpuscular Hemoglobin Concent 34 32-36 G/DL Red Cell Distribution Width 15.2 H 10.0-14.5 % Platelet Count 218 130-400 10^3/uL Mean Platelet Volume 9.9 7.4-10.4 FL Neutrophils (%) (Auto) 14 L 42-75 % Lymphocytes (%) (Auto) 71 H 12-44 % Monocytes (%) (Auto) 11 0-12 % Eosinophils (%) (Auto) 1 0-10 % Basophils (%) (Auto) 2 0-10 % Neutrophils # (Auto) 1.3 L 1.8-7.8 X 10^3 Lymphocytes # (Auto) 6.6 H 1.0-4.0 X 10^3 Monocytes # (Auto) 1.0 0.0-1.0 X 10^3 Eosinophils # (Auto) 0.1 0.0-0.3 10^3/uL Basophils # (Auto) 0.2 H 0.0-0.1 10^3/uL Neutrophils % (Manual) 26 % Lymphocytes % (Manual) 58 % Monocytes % (Manual) 5 % Eosinophils % (Manual) 1 % Band Neutrophils 4 % Atypical Lymphocytes 6 % Smudge Cells 122 Polychromasia SLIGHT Poikilocytosis SLIGHT Anisocytosis SLIGHT Microcytosis SLIGHT Spherocytes SLIGHT Rouleau SLIGHT Prothrombin Time 13.8 12.2-14.7 SEC INR Comment 1.1 0.8-1.4 Activated Partial Thromboplast Time 29 24-35 SEC D-Dimer 3.25 H 0.00-0.49 UG/ML Sodium Level 136 135-145 MMOL/L Potassium Level 3.7 3.6-5.0 MMOL/L Chloride Level 102 98-107 MMOL/L Carbon Dioxide Level 20 L 21-32 MMOL/L Anion Gap 14 5-14 MMOL/L Blood Urea Nitrogen 6 L 7-18 MG/DL Creatinine 0.68 0.60-1.30 MG/DL Estimat Glomerular Filtration Rate > 60 BUN/Creatinine Ratio 9 Glucose Level 357 H 70-105 MG/DL Calcium Level 8.4 L 8.5-10.1 MG/DL Magnesium Level 1.6 L 1.8-2.4 MG/DL Total Bilirubin 0.4 0.1-1.0 MG/DL Aspartate Amino Transf (AST/SGOT) 48 H 5-34 U/L Alanine Aminotransferase (ALT/SGPT) 46 0-55 U/L Alkaline Phosphatase 204 H 40-136 U/L Lactate Dehydrogenase 411 H 125-220 U/L Myoglobin 8.3 L 10.0-92.0 NG/ML Troponin I < 0.30 <0.30 NG/ML B-Type Natriuretic Peptide 25.7 <100.0 PG/ML Total Protein 6.3 L 6.4-8.2 GM/DL Albumin 2.5 L 3.2-4.5 GM/DL Urine Color YELLOW Urine Clarity CLEAR Urine pH 6.5 5-9 Urine Specific [place] 1.015 L 1.016-1.022 Urine Protein 2+ H NEGATIVE Urine Glucose (UA) 4+ H NEGATIVE Urine Ketones NEGATIVE NEGATIVE Urine Nitrite NEGATIVE NEGATIVE Urine Bilirubin NEGATIVE NEGATIVE Urine Urobilinogen NORMAL NORMAL MG/DL Urine Leukocyte Esterase 1+ H NEGATIVE Urine RBC (Auto) NEGATIVE NEGATIVE Urine RBC RARE /HPF Urine WBC 0-2 /HPF Urine Squamous Epithelial Cells 2-5 /HPF Urine Crystals NONE /LPF Urine Bacteria TRACE /HPF Urine Casts NONE /LPF Urine Mucus NEGATIVE /LPF Urine Culture Indicated YES My Orders Orders - NESSA MIJARES MD Cbc With Automated Diff (7/9/18 23:16) Magnesium (10/22/17 23:16) Chest 1 View, Ap/Pa Only (10/22/17 23:16) Ekg Tracing (10/22/17 23:16) Cardiac Profile 1 (10/22/17 23:16) Comprehensive Metabolic Panel (10/22/17 23:16) Myoglobin Serum (10/22/17 23:16) Protime With Inr (10/22/17 23:16) Partial Thromboplastin Time (10/22/17 23:16) O2 (10/22/17 23:16) Monitor-Rhythm Ecg Trace Only (10/22/17 23:16) Lipid Panel (10/23/17 06:00) Aspirin Chewable Tablet (Baby Aspirin Ch (10/22/17 23:30) Saline Lock/Iv-Start (10/22/17 23:16) BNP (10/22/17 23:16) Fibrin Degradation Products (10/22/17 23:16) Manual Differential (10/22/17 23:04) Ct Angio Chest W (10/23/17 00:01) Iohexol Injection (Omnipaque 350 Mg/Ml 1 (10/23/17 00:15) Ns (Ivpb) (Sodium Chloride 0.9%) (10/23/17 00:15) Pharmacy Communication (Pharmacy Communi (10/23/17 00:09) Smear For Path Review (10/23/17 06:00) Saline Lock/Iv-Start (10/23/17 00:16) Ns Iv 1000 Ml (Sodium Chloride 0.9%) (10/23/17 00:16) Ua Culture If Indicated (10/23/17 00:16) Urine Culture (10/23/17 00:20) LDH (10/23/17 01:03) Insulin (Regular) Human (Humulin R (Per (10/23/17 01:16) Lactic Acid Analyzer (10/23/17 01:16) Blood Culture (10/23/17 01:16) Insulin (Regular) Human (Humulin R (Per (10/23/17 01:18) Ceftriaxone Injection (Rocephin Injectio (10/23/17 01:30) Albuterol/Ipra Inhalation Soln (Duoneb I (10/23/17 01:30) Svn Small Volume Nebulizer (10/23/17 01:26) Medications Given in ED Current Medications Medications Dose Ordered Sig/Tomasz Route Start Time Stop Time Status Last Admin Dose Admin Aspirin 324 mg ONCE ONCE PO 10/22/17 23:30 10/22/17 23:31 DC 10/22/17 23:32 324 MG Iohexol 150 ml ONCE ONCE IV 10/23/17 00:15 10/23/17 00:16 DC 10/23/17 00:11 125 ML Sodium Chloride 250 ml ONCE ONCE IV 10/23/17 00:15 10/23/17 00:16 DC 10/23/17 00:12 80 ML Sodium Chloride 1,000 ml @ 0 mls/hr Q0M ONCE IV 10/23/17 00:16 10/23/17 00:17 DC 10/23/17 00:23 0 MLS/HR Vital Signs/I&O 10/22/17 10/22/17 10/22/17 23:02 23:16 23:16 Temp 100.4 Pulse 112 Resp 24 B/P (MAP) 143/101 (115) Pulse Ox 97 97 O2 Delivery Room Air Room Air Blood Pressure Mean: 115 Progress Progress Note : Progress Note Seen and evaluated. IV, labs, EKG and chest x-ray ordered. ASA 324 mg by mouth ordered. UA ordered. Monitor patient. D-dimer grossly elevated. CT angiogram of the chest ordered. Normal saline 1 L bolus. Monitor patient. 0125: I have talked with the lab as patient's cells are abnormal on CBC and they are requesting and I have ordered a pathology review. CT results noted. No pulmonary embolism but does have findings concerning for pneumonia. We will get blood cultures and lactic acid. I have discussed the case with Dr. Stallings. Due to the constellation of findings and abnormalities, patient will be admitted for treatment of pneumonia and further evaluation regarding the abnormal cells. Rocephin 1 g IV ordered. Patient did receive 10 units of insulin IV. Second liter of normal saline ordered. Admit observation status. Patient and family agree with plan. Initial ECG Impression Date: Oct 22, 2017 Initial ECG Impression Time: 23:01 Initial ECG Rate: 111 Initial ECG Rhythm: S.Tach Comment Sinus tachycardia with normal axis. No evidence of ST elevation CT. Similar to previous of 07/10/17. Interpreted by me. Diagnostic Imaging Diagonstic Imaging: Xray Plain Films/CT/US/NM/MRI: chest Comments Question infiltrate left base Reviewed: Reviewed by Me Diagonstic Imaging: CT Plain Films/CT/US/NM/MRI: chest Comments No evidence of pulmonary embolism. Suspect mild central bronchial wall thickening and mild opacities at the lung bases left greater than right and right middle lobe. Findings suggest mild infectious or inflammatory process. Correlate clinically. Mild prominent hilar lymph nodes which may be reactive. Reviewed: Reviewed Night Dean Study, Reviewed by Me Departure Communication (Admissions) Time/Spoke to Admitting Phy: 01:25 Impression Primary Impression: Pneumonia of both lower lobes Qualified Codes: J18.1 - Lobar pneumonia, unspecified organism Additional Impressions: Hyperglycemia Blood dyscrasia Disposition: ADMITTED INPATIENT Condition: Stable Admissions Decision to Admit Reason: Admit from ER (General) Decision to Admit/Date: Oct 23, 2017 Time/Decision to Admit Time: 01:25 Departure-Patient Inst. Referrals: [facility] (PCP/Family) Primary Care Physician NESSA MIJARES MD Oct 22, 2017 23:30
[2017-10-22 23:34] LABS: INR 1.1 (0.8-1.4); PROTHROMBIN TIME PATIENT 13.8 SEC (12.2-14.7)
[2017-10-22 23:35] LABS: ALANINE AMINOTRANSFERASE 46 U/L (0-55); ALBUMIN 2.5 GM/DL (3.2-4.5); ALKALINE PHOSPHATASE 204 U/L (40-136); BILIRUBIN,TOTAL 0.4 MG/DL (0.1-1.0); BUN/CREATININE RATIO 9; CALCIUM 8.4 MG/DL (8.5-10.1); CARBON DIOXIDE 20 MMOL/L (21-32); CHLORIDE 102 MMOL/L (98-107); CREATININE SERUM 0.68 MG/DL (0.60-1.30); GFR ESTIMATED > 60; GLUCOSE 357 MG/DL (70-105); MAGNESIUM 1.6 MG/DL (1.8-2.4); POTASSIUM 3.7 MMOL/L (3.6-5.0); SODIUM 136 MMOL/L (135-145); TOTAL PROTEIN 6.3 GM/DL (6.4-8.2)
[2017-10-22 23:37] LABS: MYOGLOBIN SERUM 8.3 NG/ML (10.0-92.0)
[2017-10-23 00:01] LABS: BAND NEUTROPHILS 4 %; NEUTROPHILS % (MANUAL) 26 %
[2017-10-23 00:02] LABS: ANISOCYTOSIS SLIGHT; ATYPICAL LYMPHOCYTES 6 %; EOSINOPHILS % (MANUAL) 1 %; LYMPHOCYTES % (MANUAL) 58 %; MICROCYTOSIS SLIGHT; MONOCYTES % (MANUAL) 5 %; POIKILOCYTOSIS SLIGHT; POLYCHROMASIA SLIGHT; ROULEAUX SLIGHT; SMUDGE CELLS 122; SPHEROCYTES SLIGHT
[2017-10-23] MEDS ORDERED: NS 250 ML (IVPB) BAG IV ONE (00:15)
[2017-10-23] MEDS ORDERED: IOHEXOL 350 MG/ML 150 ML (OMNIPAQUE 350) VIAL IV ONE (00:15)
[2017-10-23] MEDS ORDERED: NS IV 1000 ML 1,000 ML IV ONE (00:16)
[2017-10-23 00:32] LABS: BILIRUBIN,URINE NEGATIVE (NEGATIVE); CLARITY,URINE CLEAR; COLOR,URINE YELLOW; GLUCOSE, URINE (UA) 4+ (NEGATIVE); KETONES,URINE NEGATIVE (NEGATIVE); LEUKOCYTE ESTERASE ,URINE 1+ (NEGATIVE); NITRITE,URINE NEGATIVE (NEGATIVE); PH,URINE 6.5 (5-9); PROTEIN,URINE 2+ (NEGATIVE); UROBILINOGEN,URINE NORMAL (NORMAL)
[2017-10-23 00:40] LABS: BACTERIA,URINE TRACE /HPF; RBC,URINE RARE /HPF; WBC,URINE 0-2 /HPF
[2017-10-23] MEDS ORDERED: inSUlin (REGULAR) HUMAN 1 UNIT/0.01 ML (CHARGE PER UNIT) IV STA (01:16)
[2017-10-23] MEDS ORDERED: inSUlin (REGULAR) HUMAN 1 UNIT/0.01 ML (CHARGE PER UNIT) ONE (01:18)
[2017-10-23] MEDS ORDERED: RT-ALBUTEROL/IPRATROPIUM 3 ML (DUONEB) VIAL INH ONE (01:30)
[2017-10-23] MEDS ORDERED: cefTRIAXone INJECTION 1,000 MG in NS (IVPB) 50 ML IV ONE (01:30)
[2017-10-23 01:41] LABS: ABSOLUTE RETIC # 105 10e9/L (24-90); BASOPHILS # (AUTO) 0.3 10^3/uL (0.0-0.1); BASOPHILS % (AUTO) 3 % (0-10); EOSINOPHILS # (AUTO) 0.1 10^3/uL (0.0-0.3); EOSINOPHILS % (AUTO) 1 % (0-10); HEMATOCRIT 34 % (35-52); HEMOGLOBIN 11.5 G/DL (11.5-16.0); LYMPHOCYTES # (AUTO) 5.5 X 10^3 (1.0-4.0); LYMPHOCYTES % (AUTO) 68 % (12-44); MEAN CORPUSCULAR HEMOGLOBIN 27 PG (25-34); MEAN CORPUSCULAR HGB CONC 34 G/DL (32-36); MEAN CORPUSCULAR VOLUME 81 FL (80-99); MEAN PLATELET VOLUME 9.7 FL (7.4-10.4); MONOCYTES # (AUTO) 0.7 X 10^3 (0.0-1.0); MONOCYTES % (AUTO) 9 % (0-12); NEUTROPHILS # (AUTO) 1.5 X 10^3 (1.8-7.8); NEUTROPHILS % (AUTO) 19 % (42-75); PLATELET COUNT 201 10^3/uL (130-400); RED CELL DISTRIBUTION WIDTH 15.1 % (10.0-14.5); WHITE BLOOD COUNT 8.1 10^3/uL (4.3-11.0)
[2017-10-23] MEDS ORDERED: NS IV 1000 ML 1,000 ML IV STA (02:10)
[2017-10-23 02:25] LABS: NEUTROPHILS % (MANUAL) 28 %
[2017-10-23 02:26] LABS: ANISOCYTOSIS SLIGHT; ATYPICAL LYMPHOCYTES 11 %; BAND NEUTROPHILS 7 %; EOSINOPHILS % (MANUAL) 2 %; LYMPHOCYTES % (MANUAL) 43 %; METAMYELOCYTES % 1 %; MICROCYTOSIS SLIGHT; MONOCYTES % (MANUAL) 8 %; POLYCHROMASIA SLIGHT; SMUDGE CELLS 127
[2017-10-23 02:56] VITALS: BP 131/83
[2017-10-23] MEDS ORDERED: RT-ALBUTEROL/IPRATROPIUM 3 ML (DUONEB) VIAL INH PRN (03:00)
[2017-10-23] MEDS ORDERED: AZITHROMYCIN 500 MG/NS 250 ML IVPB IV ONE ×2 (03:30)
[2017-10-23] MEDS ORDERED: CATHETER FLUSH 10 ML SYR IV PRN (03:30)
[2017-10-23] MEDS: NS IV 1000 ML 1,000 ML IV SCH ×3 (03:32→22:31)
[2017-10-23 04:35] VITALS: BP 133/90
[2017-10-23 06:00] LABS: BASOPHILS # (AUTO) 0.1 10^3/uL (0.0-0.1); BASOPHILS % (AUTO) 1 % (0-10); EOSINOPHILS # (AUTO) 0.1 10^3/uL (0.0-0.3); EOSINOPHILS % (AUTO) 1 % (0-10); HEMATOCRIT 31 % (35-52); HEMOGLOBIN 10.2 G/DL (11.5-16.0); LYMPHOCYTES # (AUTO) 4.9 X 10^3 (1.0-4.0); LYMPHOCYTES % (AUTO) 68 % (12-44); MEAN CORPUSCULAR HEMOGLOBIN 27 PG (25-34); MEAN CORPUSCULAR HGB CONC 33 G/DL (32-36); MEAN CORPUSCULAR VOLUME 82 FL (80-99); MEAN PLATELET VOLUME 10.4 FL (7.4-10.4); MONOCYTES # (AUTO) 0.9 X 10^3 (0.0-1.0); MONOCYTES % (AUTO) 12 % (0-12); NEUTROPHILS # (AUTO) 1.2 X 10^3 (1.8-7.8); NEUTROPHILS % (AUTO) 17 % (42-75); PLATELET COUNT 190 10^3/uL (130-400); RED BLOOD COUNT 3.84 10^6/uL (4.35-5.85); WHITE BLOOD COUNT 7.2 10^3/uL (4.3-11.0)
[2017-10-23] MEDS: CATHETER FLUSH 10 ML SYR IV SCH ×3 (06:23→22:28)
[2017-10-23 06:24] LABS: ALANINE AMINOTRANSFERASE 38 U/L (0-55); ALBUMIN 2.2 GM/DL (3.2-4.5); ALKALINE PHOSPHATASE 171 U/L (40-136); BILIRUBIN,TOTAL 0.3 MG/DL (0.1-1.0); BUN/CREATININE RATIO 11; CALCIUM 7.5 MG/DL (8.5-10.1); CARBON DIOXIDE 21 MMOL/L (21-32); CHLORIDE 108 MMOL/L (98-107); CREATININE SERUM 0.57 MG/DL (0.60-1.30); GFR ESTIMATED > 60; GLUCOSE 292 MG/DL (70-105); POTASSIUM 3.2 MMOL/L (3.6-5.0); SODIUM 137 MMOL/L (135-145); TOTAL PROTEIN 5.3 GM/DL (6.4-8.2)
[2017-10-23 06:25] LABS: CHOLESTEROL 93 MG/DL (< 200); HDL CHOLESTEROL < 15 MG/DL (40-60); TRIGLYCERIDES 429 MG/DL (<150)
[2017-10-23] MEDS: inSUlin ASPART (NovoLOG) 1 UNIT/0.01 ML (CHARGE PER UNIT) SC SCH ×4 (06:29→22:31)
[2017-10-23 08:00] VITALS: BP 123/85
--- NOTE | 2017-10-23 08:11 | Diagnostic Imaging Report ---
PROCEDURE: CT angiography of the chest with contrast. TECHNIQUE: Multiple contiguous axial images were obtained through the chest after uneventful bolus administration of intravenous contrast. Reconstructed CTA MIP acquisitions were also performed. INDICATION: Elevated d-dimer and chest pain. FINDINGS: There are no pulmonary arterial filling defects. There is no evidence for pulmonary arterial embolus. There is no effusion or pneumothorax. There is no acute soft tissue or osseous chest wall pathology. There is mild bilateral hilar lymphadenopathy. There are perihilar and infrahilar zones of partial atelectasis. Some groundglass opacity in the left greater than right perihilar and basilar distribution may reflect an inflammatory component superimposed upon atelectasis. Visualized upper abdomen shows findings of questionable mural edema at the partially visualized proximal transverse colon this may merely reflect its incidental lack of distention, however colitis could not be excluded in the appropriate scenario. IMPRESSION: 1. Negative for PE, zones of atelectasis and mild likely reactive hilar lymphadenopathy present. Inflammatory infiltrates in the lung bases left more so than right superimposed could not be excluded. 2. Questionable findings for partial visualization of colitis of the transverse colon correlate clinically. No visualized abdominal free fluid, fluid collection, obstruction or free air. Dictated by: Dictated on workstation # [id number]
[2017-10-23] MEDS: AZITHROMYCIN 250 MG TAB (ZITHROMAX) PO SCH (08:14)
--- NOTE | 2017-10-23 08:17 | Diagnostic Imaging Report ---
INDICATION: Chest pain. FINDINGS: Some perihilar and basilar pulmonary opacities which may be infiltrate or atelectasis. The heart size is within normal limits and no appreciable pleural fluid or pneumothorax. IMPRESSION: Left greater than right perihilar and basilar infiltrates and/or atelectasis. No failure pattern or acute pleural pathology. Dictated by: Dictated on workstation # [id number]
[2017-10-23] MEDS ORDERED: KCL 20 MEQ TAB (K-DUR) PO NR (08:30)
[2017-10-23] MEDS: NAPROXEN 250 MG (NAPROSYN) TABLET PO PRN ×2 (08:47→22:27)
--- NOTE | 2017-10-23 10:09 | Diagnostic Imaging Report ---
EXAMINATION: Bilateral lower extremity venous Doppler. INDICATION: Leg pain and swelling. TECHNIQUE: Spectral and color flow imaging of the deep venous system of each lower extremity was performed. COMPARISON: There are no prior studies available for comparison. FINDINGS: There is generally good blood flow and compressibility at all levels. There is no evidence for a deep venous thrombosis. IMPRESSION: There is no evidence for deep venous thrombosis of either lower extremity. Dictated by: Dictated on workstation # [id number]
[2017-10-23] MEDS ORDERED: INSU100I23 SQ (10:34)
[2017-10-23] MEDS ORDERED: FURO20TA4 PO (10:34)
[2017-10-23] MEDS ORDERED: ATOR80TA76 PO (10:36)
[2017-10-23] MEDS ORDERED: METF10002 PO (10:36)
--- NOTE | 2017-10-23 11:27 | History & Physicial (CHS) ---
[employer] MED[employer] STUDENT 10/23/17 11:27am: HPI History of Present Illness: 37 year old ravindra with Hx of DM, HTN, HLD was admitted from the ED last night. Pt states she has had intermittent, sharp, central chest pain that sometimes radiates to her left shoulder over the last couple years. Pt states when she walks around the CP becomes worse and the pt states that she hasn't been able to walk as far as she use to. Pt also c/o SOB that is worse with exertion. Pt now c/o swelling to her legs over the last week which has worsened over the last 3 days. Pt states she did fall about 3 weeks ago and injured her left ankle. Pt states she was seen last week at the clinic for this swelling and was put on furosemide but has not taken them as perscribed because she said she was feeling dehydrated because of the medication. Pt admits fever for the last week , night sweats that started over the last 2-3 days, chills and swelling of extremities. Pt states that she has noticed that her hands have started swelling since last night. Pt also states that she noticed some small, red bumps on her legs from the top of her knees down that have now resolved. Pt also admits chronic neuropathy secondary to her diabetes. Pt denies nasal congestion, cough, N/V/D, abd pain, constipation, dysuria. Time Seen by Provider: 09:32 Attending Physician Ernesto Stallings MD PCP [facility] Consult Date of Admission Oct 23, 2017 at 01:27 Home Medications Home Medications Reviewed patient Home Medication Reconciliation performed by pharmacy medication reconciliations optomechanical technician and/or nursing. Patients Allergies have been reviewed. Allergies Coded Allergies: coconut (Verified Allergy, Severe, anaphylactic reaction, 07/11/17) ketorolac (Unverified Allergy, Unknown, 08/19/15) [id number] Hx Patient Social History Employed/Student: employed Alcohol Use: Denies Use Recreational Drug Use: No Smoking Status: Current Everyday Smoker Type Used: Cigarettes 2nd Hand Smoke Exposure: Yes Recent Foreign Travel: No Contact w/other who traveled: No Recent Hopitalizations: No Recent Infectious Disease Expo: No Physical Abuse Screen: No Sexual Abuse: No Immunizations Up To Date Date of Pneumonia Vaccine: September 09, 2016 Past Medical History Diabetes type 2 HTN HLD Surgical: x 3 I&D of left breast cyst Back surgery - discectomy Family Medical History Significant Family History: Other Conditions/Hx (unknown because pt is adopted) Family History: Diabetes mellitus 19 FATHER 19 MOTHER Review of Systems (CHC) Constitutional: chills, fever EENTM: No nose congestion Respiratory: No cough; short of breath Cardiovascular: chest pain, edema Gastrointestinal: No abdominal pain Genitourinary: No no symptoms reported Musculoskeletal: see HPI Skin: see HPI Reviewed Test Results Reviewed Test Results Lab Laboratory Tests Test 10/22/17 23:04 10/23/17 00:20 10/23/17 01:20 10/23/17 01:30 Range/Units White Blood Count 9.2 8.1 4.3-11.0 10^3/uL Red Blood Count 4.35 4.20 L 4.35-5.85 10^6/uL Hemoglobin 12.0 11.5 11.5-16.0 G/DL Hematocrit 35 34 L 35-52 % Mean Corpuscular Volume 81 81 80-99 FL Mean Corpuscular Hemoglobin 28 27 25-34 PG Mean Corpuscular Hemoglobin Concent 34 34 32-36 G/DL Red Cell Distribution Width 15.2 H 15.1 H 10.0-14.5 % Platelet Count 218 201 130-400 10^3/uL Mean Platelet Volume 9.9 9.7 7.4-10.4 FL Neutrophils (%) (Auto) 14 L 19 L 42-75 % Lymphocytes (%) (Auto) 71 H 68 H 12-44 % Monocytes (%) (Auto) 11 9 0-12 % Eosinophils (%) (Auto) 1 1 0-10 % Basophils (%) (Auto) 2 3 0-10 % Neutrophils # (Auto) 1.3 L 1.5 L 1.8-7.8 X 10^3 Lymphocytes # (Auto) 6.6 H 5.5 H 1.0-4.0 X 10^3 Monocytes # (Auto) 1.0 0.7 0.0-1.0 X 10^3 Eosinophils # (Auto) 0.1 0.1 0.0-0.3 10^3/uL Basophils # (Auto) 0.2 H 0.3 H 0.0-0.1 10^3/uL Neutrophils % (Manual) 26 28 % Lymphocytes % (Manual) 58 43 % Monocytes % (Manual) 5 8 % Eosinophils % (Manual) 1 2 % Band Neutrophils 4 7 % Atypical Lymphocytes 6 11 % Smudge Cells 122 127 Polychromasia SLIGHT SLIGHT Poikilocytosis SLIGHT Anisocytosis SLIGHT SLIGHT Microcytosis SLIGHT SLIGHT Spherocytes SLIGHT Rouleau SLIGHT Prothrombin Time 13.8 12.2-14.7 SEC INR Comment 1.1 0.8-1.4 Activated Partial Thromboplast Time 29 24-35 SEC D-Dimer 3.25 H 0.00-0.49 UG/ML Sodium Level 136 135-145 MMOL/L Potassium Level 3.7 3.6-5.0 MMOL/L Chloride Level 102 98-107 MMOL/L Carbon Dioxide Level 20 L 21-32 MMOL/L Anion Gap 14 5-14 MMOL/L Blood Urea Nitrogen 6 L 7-18 MG/DL Creatinine 0.68 0.60-1.30 MG/DL Estimat Glomerular Filtration Rate > 60 BUN/Creatinine Ratio 9 Glucose Level 357 H 70-105 MG/DL Calcium Level 8.4 L 8.5-10.1 MG/DL Magnesium Level 1.6 L 1.8-2.4 MG/DL Total Bilirubin 0.4 0.1-1.0 MG/DL Aspartate Amino Transf (AST/SGOT) 48 H 5-34 U/L Alanine Aminotransferase (ALT/SGPT) 46 0-55 U/L Alkaline Phosphatase 204 H 40-136 U/L Lactate Dehydrogenase 411 H 125-220 U/L Myoglobin 8.3 L 10.0-92.0 NG/ML Troponin I < 0.30 <0.30 NG/ML B-Type Natriuretic Peptide 25.7 <100.0 PG/ML Total Protein 6.3 L 6.4-8.2 GM/DL Albumin 2.5 L 3.2-4.5 GM/DL Urine Color YELLOW Urine Clarity CLEAR Urine pH 6.5 5-9 Urine Specific [place] 1.015 L 1.016-1.022 Urine Protein 2+ H NEGATIVE Urine Glucose (UA) 4+ H NEGATIVE Urine Ketones NEGATIVE NEGATIVE Urine Nitrite NEGATIVE NEGATIVE Urine Bilirubin NEGATIVE NEGATIVE Urine Urobilinogen NORMAL NORMAL MG/DL Urine Leukocyte Esterase 1+ H NEGATIVE Urine RBC (Auto) NEGATIVE NEGATIVE Urine RBC RARE /HPF Urine WBC 0-2 /HPF Urine Squamous Epithelial Cells 2-5 /HPF Urine Crystals NONE /LPF Urine Bacteria TRACE /HPF Urine Casts NONE /LPF Urine Mucus NEGATIVE /LPF Urine Culture Indicated YES Lactic Acid Level 1.49 0.50-2.00 MMOL/L Metamyelocytes % 1 % Absolute Reticulocyte Count 105 H 24-90 10e9/L Percent Reticulocyte Count 2.50 H 0.50-2.40 % Test 10/23/17 05:07 10/23/17 10:08 Range/Units White Blood Count 7.2 4.3-11.0 10^3/uL Red Blood Count 3.84 L 4.35-5.85 10^6/uL Hemoglobin 10.2 L 11.5-16.0 G/DL Hematocrit 31 L 35-52 % Mean Corpuscular Volume 82 80-99 FL Mean Corpuscular Hemoglobin 27 25-34 PG Mean Corpuscular Hemoglobin Concent 33 32-36 G/DL Red Cell Distribution Width 15.0 H 10.0-14.5 % Platelet Count 190 130-400 10^3/uL Mean Platelet Volume 10.4 7.4-10.4 FL Neutrophils (%) (Auto) 17 L 42-75 % Lymphocytes (%) (Auto) 68 H 12-44 % Monocytes (%) (Auto) 12 0-12 % Eosinophils (%) (Auto) 1 0-10 % Basophils (%) (Auto) 1 0-10 % Neutrophils # (Auto) 1.2 L 1.8-7.8 X 10^3 Lymphocytes # (Auto) 4.9 H 1.0-4.0 X 10^3 Monocytes # (Auto) 0.9 0.0-1.0 X 10^3 Eosinophils # (Auto) 0.1 0.0-0.3 10^3/uL Basophils # (Auto) 0.1 0.0-0.1 10^3/uL Sodium Level 137 135-145 MMOL/L Potassium Level 3.2 L 3.6-5.0 MMOL/L Chloride Level 108 H 98-107 MMOL/L Carbon Dioxide Level 21 21-32 MMOL/L Anion Gap 8 5-14 MMOL/L Blood Urea Nitrogen 6 L 7-18 MG/DL Creatinine 0.57 L 0.60-1.30 MG/DL Estimat Glomerular Filtration Rate > 60 BUN/Creatinine Ratio 11 Glucose Level 292 H 70-105 MG/DL Calcium Level 7.5 L 8.5-10.1 MG/DL Total Bilirubin 0.3 0.1-1.0 MG/DL Aspartate Amino Transf (AST/SGOT) 41 H 5-34 U/L Alanine Aminotransferase (ALT/SGPT) 38 0-55 U/L Alkaline Phosphatase 171 H 40-136 U/L Total Protein 5.3 L 6.4-8.2 GM/DL Albumin 2.2 L 3.2-4.5 GM/DL Triglycerides Level 429 H <150 MG/DL Cholesterol Level 93 < 200 MG/DL LDL Cholesterol Direct 30 1-129 MG/DL VLDL Cholesterol 5-40 MG/DL HDL Cholesterol < 15 L 40-60 MG/DL Glucometer 212 H 70-110 MG/DL Physical Exam-(CHC) Physical Exam Vital Signs VS - Last 72 Hours, by Label 10/22/17 10/22/17 10/22/17 10/23/17 23:02 23:16 23:16 01:37 Temp 100.4 Pulse 112 Resp 24 B/P (MAP) 143/101 (115) Pulse Ox 97 97 96 O2 Delivery Room Air Room Air Room Air 10/23/17 10/23/17 10/23/17 10/23/17 01:58 02:05 02:56 04:35 Temp 98.2 99.2 Pulse 125 125 121 Resp 10 18 B/P (MAP) 131/83 133/90 (104) Pulse Ox 97 94 97 95 O2 Delivery Room Air Room Air Room Air FiO2 21 10/23/17 10/23/17 10/23/17 10/23/17 05:14 07:00 07:15 08:00 Temp 98.1 Pulse 119 113 110 Resp 16 B/P (MAP) 123/85 (98) Pulse Ox 95 97 O2 Delivery Room Air Room Air 10/23/17 10/23/17 10/23/17 10/23/17 09:22 12:00 13:00 15:40 Temp 98.0 98.1 Pulse 104 94 97 Resp 18 18 B/P (MAP) 118/76 (90) 139/84 (102) Pulse Ox 95 95 95 O2 Delivery Room Air Room Air Room Air 10/23/17 10/23/17 10/23/17 18:37 19:00 19:56 Temp 99.6 Pulse 110 119 Resp 20 B/P (MAP) 129/73 (91) Pulse Ox 97 95 O2 Delivery Room Air Room Air Capillary Refill : Less Than 3 Seconds General Appearance: no apparent distress Eyes: Bilateral Eye EOMI Neck: non-tender; No lymphadenopathy (R), No lymphadenopathy (L) Respiratory: lungs clear, normal breath sounds, no respiratory distress Cardiovascular: normal peripheral pulses, other (non-pitting edema to hands R>L , non pitting edema to bilateral LE L>R) Peripheral Pulses: 2+ Radial Pulses (R), 2+ Radial Pulses (L) Gastrointestinal: normal bowel sounds, soft, tenderness (RUQ) Extremities: pedal edema (non-pitting L>R LE, Bilateral hands R>L) Neurologic/Psychiatric: alert, normal mood/affect Skin: warm/dry Lymphatic: no adenopathy; No axilla node tender (R), No axilla node tender (L) ; other (no supraclavicular lymphadenopathy bilaterally) Assessment/Plan Assessment/Plan Admission Status: Observation Assessment & Plan Pneumonia - will start pt on IV ceftriaxone and azithromycin and breathing treatments q4h for symptomatic control anemia - will get iron studies and peripheral smear Rouleaux formation - will get electrophoresis to rule out multiple myeloma Extremity swelling - BNP is normal, CT chest shows no PE, will get US LE to r/o DVT Clinical Quality Measures AMI/AHF: ASA po Prior to arrival: No DVT/VTE Risk/Contraindication: Risk Factor Score Per Nursin RFS Level Per Nursing on Admit: 3=High ERNESTO STALLINGS MD 10/24/17 3:09pm: HPI History of Present Illness: Date seen by provider: Oct 23, 2017 Home Medications Allergies Coded Allergies: coconut (Verified Allergy, Severe, anaphylactic reaction, 07/11/17) ketorolac (Unverified Allergy, Unknown, 08/19/15) TKG-Oawndi-Eymsdo Hx Family Medical History Family History: Diabetes mellitus 19 FATHER 19 MOTHER Physical Exam-([facility]) Physical Exam Cardiovascular: other (non-pitting edema to hands R>L, non pitting edema to bilateral LE L>R) Lymphatic: no adenopathy (no supraclavicular, cervical, epitrochlear or popliteal adenopathy) Assessment/Plan Assessment/Plan Assessment & Plan Acute onset of lymphocytosis with elevated LDH and alk phos and abnormal cells, peripheral smear pending. Possible pneumonia although not entirely clear from CT. Troponin negative. Swelling of unclear origin given non-pitting, normal BNP , negative LE dopplers. Will check TSH. Has been referred outpatient to Cardiology for chest pain and tachycardia, reports she hasn't heard back, will look into status of referral. Supervisory-Addendum Brief Supervisory Addendum Patient seen and complete exam done by me. Agree with documentation by Manohar Kunz MS3 except as noted if different than mine and with my additions. [employer] STUDENT Oct 23, 2017 11:27 am ERNESTO STALLINGS MD Oct 24, 2017 3:09 pm
[2017-10-23 12:00] VITALS: BP 118/76
[2017-10-23 15:40] VITALS: BP 139/84
[2017-10-23 19:56] VITALS: BP 129/73
[2017-10-23] MEDS: inSUlin DETERMIR 1 UNIT/0.01 ML (LEVEMIR) CHARGE PER UNIT SQ SCH (20:56)
[2017-10-23] MEDS ORDERED: cefTRIAXone 1 GM/NS 50 ML IVPB IV SCH ×2 (21:00)
[2017-10-23] MEDS ORDERED: NON-FORMULARY MEDICATION 1 EA EA (Metformin HCl 1,000 MG) PO SCH (21:00)
[2017-10-23] MEDS ORDERED: inSUlin DETERMIR 1000 UNITS/10 ML VIAL (LEVEMIR) SQ SCH (21:00)
[2017-10-24 00:06] VITALS: BP 124/72
[2017-10-24 04:11] VITALS: BP 142/84
[2017-10-24] MEDS ORDERED: NON-FORMULARY MEDICATION 1 EA EA (Insulin Lispro (Humalog Kwikpen) 10 UNIT) SQ SCH (06:00)
[2017-10-24 06:12] LABS: BASOPHILS # (AUTO) 0.1 10^3/uL (0.0-0.1); BASOPHILS % (AUTO) 1 % (0-10); EOSINOPHILS # (AUTO) 0.1 10^3/uL (0.0-0.3); EOSINOPHILS % (AUTO) 1 % (0-10); HEMATOCRIT 31 % (35-52); HEMOGLOBIN 10.1 G/DL (11.5-16.0); LYMPHOCYTES # (AUTO) 4.7 X 10^3 (1.0-4.0); LYMPHOCYTES % (AUTO) 65 % (12-44); MEAN CORPUSCULAR HEMOGLOBIN 26 PG (25-34); MEAN CORPUSCULAR HGB CONC 32 G/DL (32-36); MEAN CORPUSCULAR VOLUME 82 FL (80-99); MEAN PLATELET VOLUME 9.7 FL (7.4-10.4); MONOCYTES # (AUTO) 0.8 X 10^3 (0.0-1.0); MONOCYTES % (AUTO) 10 % (0-12); NEUTROPHILS # (AUTO) 1.6 X 10^3 (1.8-7.8); NEUTROPHILS % (AUTO) 23 % (42-75); PLATELET COUNT 197 10^3/uL (130-400); RED BLOOD COUNT 3.83 10^6/uL (4.35-5.85); RED CELL DISTRIBUTION WIDTH 15.4 % (10.0-14.5); WHITE BLOOD COUNT 7.3 10^3/uL (4.3-11.0)
[2017-10-24] MEDS: CATHETER FLUSH 10 ML SYR IV SCH ×2 (06:29→14:12)
[2017-10-24 06:42] LABS: ALANINE AMINOTRANSFERASE 38 U/L (0-55); ALBUMIN 2.2 GM/DL (3.2-4.5); ALKALINE PHOSPHATASE 161 U/L (40-136); BILIRUBIN,TOTAL 0.3 MG/DL (0.1-1.0); BUN/CREATININE RATIO 20; CALCIUM 7.7 MG/DL (8.5-10.1); CARBON DIOXIDE 22 MMOL/L (21-32); CHLORIDE 111 MMOL/L (98-107); CREATININE SERUM 0.46 MG/DL (0.60-1.30); GFR ESTIMATED > 60; GLUCOSE 134 MG/DL (70-105); MAGNESIUM 1.4 MG/DL (1.8-2.4); POTASSIUM 3.6 MMOL/L (3.6-5.0); SODIUM 139 MMOL/L (135-145); TOTAL PROTEIN 5.2 GM/DL (6.4-8.2)
[2017-10-24] MEDS: inSUlin ASPART (NovoLOG) 1 UNIT/0.01 ML (CHARGE PER UNIT) SC SCH ×4 (06:57→11:50)
[2017-10-24] MEDS ORDERED: metFORMIN 500 MG (GLUCOPHAGE) TAB PO SCH (07:00)
[2017-10-24 08:00] VITALS: BP 121/76
[2017-10-24] MEDS: AZITHROMYCIN 250 MG TAB (ZITHROMAX) PO SCH (08:28)
[2017-10-24] MEDS: inSUlin DETERMIR 1 UNIT/0.01 ML (LEVEMIR) CHARGE PER UNIT SQ SCH (08:29)
[2017-10-24] MEDS: NS IV 1000 ML 1,000 ML IV SCH (08:31)
[2017-10-24] MEDS ORDERED: ATORVASTATIN 80 MG (LIPITOR) TABLET PO SCH (09:00)
[2017-10-24] MEDS ORDERED: MAGNESIUM 1 GM/100 ML IVPB 100 ML IV SCH (14:00)
[2017-10-24] MEDS ORDERED: NAPR250T6 PO (14:06)
[2017-10-24] MEDS ORDERED: DOXY100T2 PO (14:06)
[2017-10-24] MEDS ORDERED: ALBU18HF2 IH (14:06)
--- NOTE | 2017-10-24 14:08 | Discharge Instructions ---
Discharge [facility] Discharge Medications New, Converted or Re-Newed RX: Transmitted to Pharmacy New Medications: Albuterol Sulfate (Ventolin Hfa) 18 Gm Hfa.aer.ad 2 PUFF IH Q4H PRN for SHORTNESS OF BREATH, #1 INHALER 0 Refills Doxycycline Hyclate (Doxycycline Hyclate) 100 Mg Tablet 100 MG PO BID for 7 Days, #14 TAB 0 Refills Naproxen (Naproxen) 250 Mg Tablet 500 MG PO BID PRN for PAIN-MILD, #30 TAB 0 Refills Continued Medications: Atorvastatin Calcium (Atorvastatin Calcium) 80 Mg Tablet 80 MG PO DAILY, TAB LAST FILLED #30 18 Furosemide (Furosemide) 20 Mg Tablet 20 MG PO DAILY, TAB Insulin Determir (Levemir) 1,000 Units/10 Ml Soln 15 UNITS SQ BID, EA Insulin Lispro (Humalog Kwikpen) 100 Unit/1 Ml Insuln.pen 10 UNIT SQ TIDAC, EA Metformin HCl (Metformin HCl) 1,000 Mg Tablet 1000 MG PO BID, TAB LAST FILLED #60 07-11-17 Patient Instructions Goal/Follow Up Appt: Follow up with Roberto Carlos Collins at [facility] on 10/26 at 10:20 am. [facility] For: Fever, worsening shortness of breath in spite of inhaler Activity & Diet Discharge Diet: ADA Diet Activity as Tolerated: Yes Copy Copies To 1: Roberto Carlos Collins BETHANY N MD Oct 24, 2017 14:08
[2017-10-24] MEDS ORDERED: MAGNESIUM OXIDE (MAG-OX)400 MG TAB PO ONE (14:15)
[2017-10-24] MEDS ORDERED: RT-ADVAIR HFA 115/21 MCG PER PUFF IH ONE (14:16)
[2017-10-24] MEDS ORDERED: MAGNESIUM OXIDE (MAG-OX)400 MG TAB ONE (14:25)
[2017-10-24 14:45] VITALS: BP 121/76
--- NOTE | 2017-10-24 15:47 | Discharge Summary ---
Diagnosis/Chief Complaint Date of Admission Oct 23, 2017 at 13:15 Date of Discharge Oct 24, 2017 at 14:45 Admission Diagnosis Admission Diagnosis Chest pain Edema Lymphocytosis Discharge Diagnosis Chest pain- troponin negative, CTA negative for PE but with possible pneumonia Possible Pneumonia - pt on IV ceftriaxone and azithromycin and breathing treatments q4h for symptomatic control, improved and discharged on doxycycline and given albuterol inhaler Abnormal cells on blood count- lymphocytosis with smudge cells, mild rouleaux formation as well as elevated LDH and alk phos. Peripheral smear more consistent with reactive, EBV, CMV and hepatitis serologies pending at d/c. SPEP and UPEP pending at d/c. Extremity swelling - BNP is normal, CT chest shows no PE, US LE bilateral no DVT. Non-pitting edema, unclear etiology. TSH nml. Naprosyn for pain. Tachycardia- reportedly for years, has outpatient referral in process to Cardiology, financial paperwork filled out inpatient, referral re-activated in clinic. Chief Complaint/HPI Chief Complaint/HPI 37 year old ravindra with Hx of DM, HTN, HLD was admitted from the ED last night. Pt states she has had intermittent, sharp, central chest pain that sometimes radiates to her left shoulder over the last couple years. Pt states when she walks around the CP becomes worse and the pt states that she hasn't been able to walk as far as she use to. Pt also c/o SOB that is worse with exertion. Pt now c/o swelling to her legs over the last week which has worsened over the last 3 days. Pt states she did fall about 3 weeks ago and injured her left ankle. Pt states she was seen last week at the clinic for this swelling and was put on furosemide but has not taken them as perscribed because she said she was feeling dehydrated because of the medication. Pt admits fever for the last week , night sweats that started over the last 2-3 days, chills and swelling of extremities. Pt states that she has noticed that her hands have started swelling since last night. Pt also states that she noticed some small, red bumps on her legs from the top of her knees down that have now resolved. Pt also admits chronic neuropathy secondary to her diabetes. Pt denies nasal congestion, cough, N/V/D, abd pain, constipation, dysuria. Discharge Summary-Simple/Stand Consultations Discharge Physical Examination Allergies: Coded Allergies: coconut (Verified Allergy, Severe, anaphylactic reaction, 07/11/17) ketorolac (Unverified Allergy, Unknown, 08/19/15) Vitals & I&Os Vital Sign - Last 12Hours Date Time Temp Pulse Resp B/P (MAP) Pulse Ox O2 Delivery O2 Flow Rate FiO2 10/24/17 14:45 116 22 121/76 96 Room Air 10/24/17 08:00 96.7 10/23/17 02:56 21 Intake and Output 10/24/17 00:00 Intake Total 2170 ml Output Total 400 ml Balance 1770 ml General Appearance: Alert, No Acute Distress Respiratory: Clear to Auscultation, Normal Air Movement Cardiovascular: No Murmurs, Other (tachycardic) Extremities: Other (non-pitting edema) Psych/Mental Status: Mental Status NL Hospital Course See final discharge diagnosis. Labs Laboratory Tests Test 10/22/17 23:04 10/23/17 00:20 10/23/17 01:20 10/23/17 01:30 Range/Units White Blood Count 9.2 8.1 4.3-11.0 10^3/uL Red Blood Count 4.35 4.20 L 4.35-5.85 10^6/uL Hemoglobin 12.0 11.5 11.5-16.0 G/DL Hematocrit 35 34 L 35-52 % Mean Corpuscular Volume 81 81 80-99 FL Mean Corpuscular Hemoglobin 28 27 25-34 PG Mean Corpuscular Hemoglobin Concent 34 34 32-36 G/DL Red Cell Distribution Width 15.2 H 15.1 H 10.0-14.5 % Platelet Count 218 201 130-400 10^3/uL Mean Platelet Volume 9.9 9.7 7.4-10.4 FL Neutrophils (%) (Auto) 14 L 19 L 42-75 % Lymphocytes (%) (Auto) 71 H 68 H 12-44 % Monocytes (%) (Auto) 11 9 0-12 % Eosinophils (%) (Auto) 1 1 0-10 % Basophils (%) (Auto) 2 3 0-10 % Neutrophils # (Auto) 1.3 L 1.5 L 1.8-7.8 X 10^3 Lymphocytes # (Auto) 6.6 H 5.5 H 1.0-4.0 X 10^3 Monocytes # (Auto) 1.0 0.7 0.0-1.0 X 10^3 Eosinophils # (Auto) 0.1 0.1 0.0-0.3 10^3/uL Basophils # (Auto) 0.2 H 0.3 H 0.0-0.1 10^3/uL Neutrophils % (Manual) 26 28 % Lymphocytes % (Manual) 58 43 % Monocytes % (Manual) 5 8 % Eosinophils % (Manual) 1 2 % Band Neutrophils 4 7 % Atypical Lymphocytes 6 11 % Smudge Cells 122 127 Polychromasia SLIGHT SLIGHT Poikilocytosis SLIGHT Anisocytosis SLIGHT SLIGHT Microcytosis SLIGHT SLIGHT Spherocytes SLIGHT Rouleau SLIGHT Prothrombin Time 13.8 12.2-14.7 SEC INR Comment 1.1 0.8-1.4 Activated Partial Thromboplast Time 29 24-35 SEC D-Dimer 3.25 H 0.00-0.49 UG/ML Sodium Level 136 135-145 MMOL/L Potassium Level 3.7 3.6-5.0 MMOL/L Chloride Level 102 98-107 MMOL/L Carbon Dioxide Level 20 L 21-32 MMOL/L Anion Gap 14 5-14 MMOL/L Blood Urea Nitrogen 6 L 7-18 MG/DL Creatinine 0.68 0.60-1.30 MG/DL Estimat Glomerular Filtration Rate > 60 BUN/Creatinine Ratio 9 Glucose Level 357 H 70-105 MG/DL Calcium Level 8.4 L 8.5-10.1 MG/DL Magnesium Level 1.6 L 1.8-2.4 MG/DL Total Bilirubin 0.4 0.1-1.0 MG/DL Aspartate Amino Transf (AST/SGOT) 48 H 5-34 U/L Alanine Aminotransferase (ALT/SGPT) 46 0-55 U/L Alkaline Phosphatase 204 H 40-136 U/L Lactate Dehydrogenase 411 H 125-220 U/L Myoglobin 8.3 L 10.0-92.0 NG/ML Troponin I < 0.30 <0.30 NG/ML B-Type Natriuretic Peptide 25.7 <100.0 PG/ML Total Protein 6.3 L 6.4-8.2 GM/DL Albumin 2.5 L 3.2-4.5 GM/DL Urine Color YELLOW Urine Clarity CLEAR Urine pH 6.5 5-9 Urine Specific [place] 1.015 L 1.016-1.022 Urine Protein 2+ H NEGATIVE Urine Glucose (UA) 4+ H NEGATIVE Urine Ketones NEGATIVE NEGATIVE Urine Nitrite NEGATIVE NEGATIVE Urine Bilirubin NEGATIVE NEGATIVE Urine Urobilinogen NORMAL NORMAL MG/DL Urine Leukocyte Esterase 1+ H NEGATIVE Urine RBC (Auto) NEGATIVE NEGATIVE Urine RBC RARE /HPF Urine WBC 0-2 /HPF Urine Squamous Epithelial Cells 2-5 /HPF Urine Crystals NONE /LPF Urine Bacteria TRACE /HPF Urine Casts NONE /LPF Urine Mucus NEGATIVE /LPF Urine Culture Indicated YES Lactic Acid Level 1.49 0.50-2.00 MMOL/L Metamyelocytes % 1 % Absolute Reticulocyte Count 105 H 24-90 10e9/L Percent Reticulocyte Count 2.50 H 0.50-2.40 % Test 10/23/17 05:07 10/23/17 10:08 10/23/17 14:13 10/23/17 19:08 Range/Units White Blood Count 7.2 4.3-11.0 10^3/uL Red Blood Count 3.84 L 4.35-5.85 10^6/uL Hemoglobin 10.2 L 11.5-16.0 G/DL Hematocrit 31 L 35-52 % Mean Corpuscular Volume 82 80-99 FL Mean Corpuscular Hemoglobin 27 25-34 PG Mean Corpuscular Hemoglobin Concent 33 32-36 G/DL Red Cell Distribution Width 15.0 H 10.0-14.5 % Platelet Count 190 130-400 10^3/uL Mean Platelet Volume 10.4 7.4-10.4 FL Neutrophils (%) (Auto) 17 L 42-75 % Lymphocytes (%) (Auto) 68 H 12-44 % Monocytes (%) (Auto) 12 0-12 % Eosinophils (%) (Auto) 1 0-10 % Basophils (%) (Auto) 1 0-10 % Neutrophils # (Auto) 1.2 L 1.8-7.8 X 10^3 Lymphocytes # (Auto) 4.9 H 1.0-4.0 X 10^3 Monocytes # (Auto) 0.9 0.0-1.0 X 10^3 Eosinophils # (Auto) 0.1 0.0-0.3 10^3/uL Basophils # (Auto) 0.1 0.0-0.1 10^3/uL Sodium Level 137 135-145 MMOL/L Potassium Level 3.2 L 3.6-5.0 MMOL/L Chloride Level 108 H 98-107 MMOL/L Carbon Dioxide Level 21 21-32 MMOL/L Anion Gap 8 5-14 MMOL/L Blood Urea Nitrogen 6 L 7-18 MG/DL Creatinine 0.57 L 0.60-1.30 MG/DL Estimat Glomerular Filtration Rate > 60 BUN/Creatinine Ratio 11 Glucose Level 292 H 70-105 MG/DL Calcium Level 7.5 L 8.5-10.1 MG/DL Total Bilirubin 0.3 0.1-1.0 MG/DL Aspartate Amino Transf (AST/SGOT) 41 H 5-34 U/L Alanine Aminotransferase (ALT/SGPT) 38 0-55 U/L Alkaline Phosphatase 171 H 40-136 U/L Total Protein 5.3 L 6.4-8.2 GM/DL Albumin 2.2 L 3.2-4.5 GM/DL Triglycerides Level 429 H <150 MG/DL Cholesterol Level 93 < 200 MG/DL LDL Cholesterol Direct 30 1-129 MG/DL VLDL Cholesterol 5-40 MG/DL HDL Cholesterol < 15 L 40-60 MG/DL Glucometer 212 H 235 H 70-110 MG/DL Test 10/23/17 21:12 10/24/17 05:22 10/24/17 05:56 10/24/17 09:53 Range/Units Glucometer 308 H 149 H 160 H 70-110 MG/DL White Blood Count 7.3 4.3-11.0 10^3/uL Red Blood Count 3.83 L 4.35-5.85 10^6/uL Hemoglobin 10.1 L 11.5-16.0 G/DL Hematocrit 31 L 35-52 % Mean Corpuscular Volume 82 80-99 FL Mean Corpuscular Hemoglobin 26 25-34 PG Mean Corpuscular Hemoglobin Concent 32 32-36 G/DL Red Cell Distribution Width 15.4 H 10.0-14.5 % Platelet Count 197 130-400 10^3/uL Mean Platelet Volume 9.7 7.4-10.4 FL Neutrophils (%) (Auto) 23 L 42-75 % Lymphocytes (%) (Auto) 65 H 12-44 % Monocytes (%) (Auto) 10 0-12 % Eosinophils (%) (Auto) 1 0-10 % Basophils (%) (Auto) 1 0-10 % Neutrophils # (Auto) 1.6 L 1.8-7.8 X 10^3 Lymphocytes # (Auto) 4.7 H 1.0-4.0 X 10^3 Monocytes # (Auto) 0.8 0.0-1.0 X 10^3 Eosinophils # (Auto) 0.1 0.0-0.3 10^3/uL Basophils # (Auto) 0.1 0.0-0.1 10^3/uL Sodium Level 139 135-145 MMOL/L Potassium Level 3.6 3.6-5.0 MMOL/L Chloride Level 111 H 98-107 MMOL/L Carbon Dioxide Level 22 21-32 MMOL/L Anion Gap 6 5-14 MMOL/L Blood Urea Nitrogen 9 7-18 MG/DL Creatinine 0.46 L 0.60-1.30 MG/DL Estimat Glomerular Filtration Rate > 60 BUN/Creatinine Ratio 20 Glucose Level 134 H 70-105 MG/DL Calcium Level 7.7 L 8.5-10.1 MG/DL Magnesium Level 1.4 L 1.8-2.4 MG/DL Total Bilirubin 0.3 0.1-1.0 MG/DL Aspartate Amino Transf (AST/SGOT) 62 H 5-34 U/L Alanine Aminotransferase (ALT/SGPT) 38 0-55 U/L Alkaline Phosphatase 161 H 40-136 U/L Total Protein 5.2 L 6.4-8.2 GM/DL Albumin 2.2 L 3.2-4.5 GM/DL Thyroid Stimulating Hormone (TSH) 1.70 0.35-4.94 UIU/ML Test 10/24/17 12:07 Range/Units Discharge Instructions to patient/family Please see electronic discharge instructions given to patient. Discharge Medications Reviewed and agree with Discharge Medication list on patient's Discharge Instruction sheet Clinical Quality Measures AMI/AHF: ASA po Prior to arrival: No DVT/VTE Risk/Contraindication: Risk Factor Score Per Nursin RFS Level Per Nursing on Admit: 3=High Copy Copies To 1: ERNESTO Dixon MD Oct 24, 2017 15:47
[2017-10-25 07:29] LABS: HEPATITIS C ANTIBODY C Non-Reactive (Non-Reactive)
== END 2017-10-24 14:45 | disposition home or self-care (01) | DRG 195 ==
LOC: EDUNIT# 22:50 → ER 22:51 → 4TH 22:54 → UNDOADMOB 10-23 01:27 → INTOOBSV 10-23 13:15 → OBSVTOIN 10-23 13:15 → UNDODISIN 10-24 14:45
PROVIDERS: ADMIT Family Medicine; ATTEND Family Medicine
DX: J18.9 Pneumonia, unspecified organism (principal); R07.9 Chest pain, unspecified; D72.820 Lymphocytosis (symptomatic); M79.89 Other specified soft tissue disorders; E11.65 Type 2 diabetes mellitus with hyperglycemia; E11.40 Type 2 diabetes mellitus with diabetic neuropathy, unspecified; I10 Essential (primary) hypertension; D75.9 Disease of blood and blood-forming organs, unspecified; D64.9 Anemia, unspecified; E78.5 Hyperlipidemia, unspecified; F41.9 Anxiety disorder, unspecified; F17.210 Nicotine dependence, cigarettes, uncomplicated; R30.0 Dysuria; Z79.4 Long term (current) use of insulin; Z91.81 History of falling
CPT/HCPCS: 36415; 71045; 71275; 80053; 80061; 80074; 81000; 82962; 83605; 83615; 83735; 83874; 83880; 83883; 84155; 84165; 84166; 84443; 84484; 85007; 85025; 85027; 85045; 85379; 85610; 85730; 86644; 86645; 86663; 86664; 86665; 87040; 87088; 93005; 93041; 93970; 94640; 94760; 96361; 96374; 96375; G0378

== ENCOUNTER 2017-10-25 14:45 | Inpatient (IN) | payer SELFPAY ==
[~2017-10-25] VITALS: Ht 157.5 cm; Wt 76.9 kg
[~2017-10-25 14:45] MED LIST changes: +ALBU18HF2 IH; +ATOR80TA76 PO; +DOXY100T2 PO; +FURO20TA4 PO; +NAPR250T6 PO
[2017-10-25] MEDS ORDERED: RT-ALBUTEROL/IPRATROPIUM 3 ML (DUONEB) VIAL INH PRN (16:00)
[2017-10-25] MEDS ORDERED: NAPROXEN 250 MG (NAPROSYN) TABLET PO PRN (16:00)
[2017-10-25] MEDS ORDERED: RT-ADVAIR HFA 115/21 MCG PER PUFF IH ONE (16:00)
[2017-10-25] MEDS ORDERED: NS IV 1000 ML 1,000 ML IV SCH (16:00)
[2017-10-25] MEDS ORDERED: CATHETER FLUSH 10 ML SYR IV PRN (16:00)
[2017-10-25] MEDS ORDERED: FUROSEMIDE 40 MG/4 ML INJ (LASIX) IVP ONE (16:15)
[2017-10-25 16:20] VITALS: BP 124/84
[2017-10-25] MEDS: inSUlin ASPART (NovoLOG) 1 UNIT/0.01 ML (CHARGE PER UNIT) SC SCH (16:50)
[2017-10-25 17:03] LABS: HEMOGLOBIN 10.4 G/DL (11.5-16.0); RED BLOOD COUNT 3.85 10^6/uL (4.35-5.85); RED CELL DISTRIBUTION WIDTH 15.4 % (10.0-14.5); WHITE BLOOD COUNT 6.9 10^3/uL (4.3-11.0)
[2017-10-25] MEDS: metFORMIN 500 MG (GLUCOPHAGE) TAB PO SCH (17:03)
[2017-10-25 17:18] VITALS: BP 124/84
[2017-10-25 17:35] LABS: ALANINE AMINOTRANSFERASE 37 U/L (0-55); ALBUMIN 2.5 GM/DL (3.2-4.5); ALKALINE PHOSPHATASE 181 U/L (40-136); BILIRUBIN,TOTAL 0.5 MG/DL (0.1-1.0); BUN/CREATININE RATIO 12; CALCIUM 8.1 MG/DL (8.5-10.1); CARBON DIOXIDE 24 MMOL/L (21-32); CHLORIDE 105 MMOL/L (98-107); CREATININE SERUM 0.57 MG/DL (0.60-1.30); GFR ESTIMATED > 60; GLUCOSE 262 MG/DL (70-105); POTASSIUM 3.8 MMOL/L (3.6-5.0); SODIUM 136 MMOL/L (135-145)
--- NOTE | 2017-10-25 17:59 | Consultation-Cardiology ---
HPI-Cardiology Cardiology Consultation: Date of Consultation 10/25/17 Time Seen by Provider: 17:40 Date of Admission Attending Physician Ernesto Stallings MD Admitting Physician [facility] Consulting Physician ALBER PRICE MD, MA, FACP, FACC, FSCAI, CCDS HPI: Chief Complaint: CC: Leg swelling, shortness of breath HPI: 37 yo woman with 4 days of bilat leg swelling and one day of shortness of breath. No syncope or cp. Feels heart rate to be fast. No leg pain Review of Systems-Cardiology Review of Systems Constitutional: malaise, tiredness; No weight loss, No weight gain Eyes: No vision change Ears/Nose/Throat: No ear discharge, No nasal drainage, No recent hearing loss Respiratory: As described under HPI Cardiovascular: As described under HPI Gastrointestinal: No constipation, No diarrhea, No nausea, No vomiting Genitourinary: No dysuria, No hematuria, No urine frequency changes Musculoskeletal: No back pain Skin: No rash, No ulcerations Psychiatric/Neurological: No seizure, No focal weakness, No syncope Hematologic: No bleeding abnormalities FNF-[place] Hx Patient Social History Alcohol Use: Rarely Uses Recreational Drug Use: No Smoking Status: Light Tobacco Smoker Type Used: Cigars 2nd Hand Smoke Exposure: Yes Recent Foreign Travel: No Recent Infectious Disease Expo: No Physical Abuse Screen: No Sexual Abuse: No Immunizations Up To Date Date of Pneumonia Vaccine: September 09, 2016 Past Medical History PMH As described under Assessment. Family Medical History Family History: Diabetes mellitus 19 FATHER 19 MOTHER Allergies and Home Medications Allergies Coded Allergies: coconut (Verified Allergy, Severe, anaphylactic reaction, 07/11/17) ketorolac (Unverified Allergy, Unknown, 08/19/15) Home Medications Albuterol Sulfate 18 Gm Hfa.aer.ad, 2 PUFF IH Q4H PRN for SHORTNESS OF BREATH Prescribed by: ERNESTO STALLINGS on 10/24/17 1406 Atorvastatin Calcium 80 Mg Tablet, 80 MG PO DAILY, (Reported) LAST FILLED #30 07-11-17 Doxycycline Hyclate 100 Mg Tablet, 100 MG PO BID Prescribed by: ERNESTO STALLINGS on 10/24/17 1406 Furosemide 20 Mg Tablet, 20 MG PO DAILY, (Reported) Insulin Determir 1,000 Units/10 Ml Soln, 15 UNITS SQ BID, (Reported) Insulin Lispro 100 Unit/1 Ml Insuln.pen, 10 UNIT SQ TIDAC, (Reported) Metformin HCl 1,000 Mg Tablet, 1,000 MG PO BID, (Reported) LAST FILLED #60 07-11-17 Naproxen 250 Mg Tablet, 500 MG PO BID PRN for PAIN-MILD Prescribed by: ERNESTO STALLINGS on 10/24/17 1406 Patient Home Medication List Home Medication List Reviewed: Yes Physical Exam-Cardiology Physical Exam Vital Signs/I&O 10/25/17 10/25/17 10/25/17 10/25/17 16:14 16:20 17:18 17:38 Temp 99.5 Pulse 123 115 Resp 20 B/P (MAP) 124/84 (97) Pulse Ox 97 94 97 97 O2 Delivery Nasal Cannula Room Air Nasal Cannula O2 Flow Rate 2.00 2.00 FiO2 28 Capillary Refill : Constitutional: AAO x 3, well-developed, well-nourished HEENT: EOMI, hearing is well preserved; No xanthelasmas are seen Neck: carotid pulses are 2 + bilaterally, with good upstrokes Respiratory: No accessory muscle use; lungs clear to percussion, lungs clear to auscultation Cardiovascular: regular rate-rhythm, S1 and S2, systolic murmur (soft DOMINIQUE at card base) Gastrointestinal: No tender; soft; No guarding, No rebound; audible bowel sounds Extremities: No clubbing, No cyanosis, No significant edema Neurologic/Psychiatric: oriented x 3, grossly intact, power is 5/5 both on sides Skin: No rash on exposed areas, No ulcerations on exposed areas Data Review Labs Laboratory Tests 10/25/17 16:56: White Blood Count 6.9, Red Blood Count 3.85L, Hemoglobin 10.4L, Hematocrit 32L, Mean Corpuscular Volume 82, Mean Corpuscular Hemoglobin 27, Mean Corpuscular Hemoglobin Concent 33, Red Cell Distribution Width 15.4H, Platelet Count 233, Mean Platelet Volume 9.0, Sodium Level 136, Potassium Level 3.8, Chloride Level 105, Carbon Dioxide Level 24, Anion Gap 7, Blood Urea Nitrogen 7, Creatinine 0.57L, Estimat Glomerular Filtration Rate > 60, BUN/Creatinine Ratio 12, Glucose Level 262H, Calcium Level 8.1L, Total Bilirubin 0.5, Aspartate Amino Transf (AST/SGOT) 49H, Alanine Aminotransferase (ALT/SGPT) 37, Alkaline Phosphatase 181H, B-Type Natriuretic Peptide 87.7, Total Protein 6.0L, Albumin 2.5L Laboratory Tests 10/25/17 16:56 A/P-Cardiology Assessment/Admission Diagnosis Shortness of breath likely due to pneumonia (based on CT chest of 10/23/17) CT chest angio on 10/23/17 did not show any PE Bilat leg swelling likely due to venous insufficiency. Bilat leg venous Duplex of 10/23/17 did not show any DVT Sinus tach, prob due to pneumonia DM II Chronic tobacco use Discussion and Recomendations * Echo to eval EF and any structural heart disease * Monitor labs * Management of pneumonia is with the Med S[facility] * I spoke with her and answered CV-related questions Clinical Quality Measures DVT/VTE Risk/Contraindication: Risk Factor Score Per Nursin RFS Level Per Nursing on Admit: 2=Moderate ALBER PRICE MD FACP FAC CCDS Oct 25, 2017 17:59
--- OUTSIDE RECORDS SUMMARY | 2017-10-25 18:08 | XMS REPORT | Clinical Summary ---
Author Author [facility] Organization [facility] Address Unknown Phone Unavailable Care Team Providers Care Music Writer Name Role Phone Alfred Diaz MD PCP Unavailable Source Comments Some departments are not documenting in the electronic medical record. If you do not see the information that you expected, contact Release of Information in the Health Information Management department at [phone] for further assistance in locating additional records.[facility] Allergies Not on File Current [...]
--- OUTSIDE RECORDS SUMMARY | 2017-10-25 18:09 | XMS REPORT | Continuity of Care Document ---
Author Author [facility] Organization [facility] Address Unknown Phone Unavailable Allergies Active Description Code Type Severity Reaction Onset Reported/Identified Relationship to Patient Clinical Status Yes ketorolac [id number] Drug Allergy Unknown N/A 08/19/2015 Yes coconut [id number] Drug Allergy Severe anaphylactic re 07/11/2017 Medications There is no data. Problems Date Dx Coded Attending Type Code Diagnosis Diagnosed By 08/19/2015 CORNELIA KENNEDY MD Ot E11.9 TYPE 2 DIABETES MELLITUS WITHOUT COMPLIC 08/19/2015 CORNELIA KENNEDY MD Ot F17.210 NICOTINE DEPENDENCE, CIGARETTES, UNCOMPL 08/19/2015 CORNELIA KENNEDY MD Ot R07.89 OTHER CHEST PAIN 08/20/2015 CORNELIA KENNEDY MD Ot E11.9 TYPE 2 DIABETES MELLITUS WITHOUT COMPLIC 08/20/2015 CORNELIA KENNEDY MD Ot F17.210 NICOTINE DEPENDENCE, CIGARETTES, UNCOMPL 08/20/2015 CORNELIA KENNEDY MD Ot R07.89 OTHER CHEST PAIN 08/25/2015 CORNELIA KENNEDY MD Ot E11.9 TYPE 2 DIABETES MELLITUS WITHOUT COMPLIC 08/25/2015 CORNELIA KENNEDY MD Ot F17.210 NICOTINE DEPENDENCE, CIGARETTES, UNCOMPL 08/25/2015 CORNELIA KENNEDY MD Ot R07.89 OTHER CHEST PAIN 09/02/2015 CORNELIA KENNEDY MD Ot E11.9 TYPE 2 DIABETES MELLITUS WITHOUT COMPLIC 09/02/2015 CORNELIA KENNEDY MD Ot F17.210 NICOTINE DEPENDENCE, CIGARETTES, UNCOMPL 09/02/2015 CORNELIA KENNEDY MD Ot R07.89 OTHER CHEST PAIN 11/22/2016 LEONARDO EVANS APRN Ot E11.9 TYPE 2 DIABETES MELLITUS WITHOUT COMPLIC 11/22/2016 LEONARDO EVANS MAIL DELIVERY SUPERVISOR Ot M54.12 RADICULOPATHY, CERVICAL REGION 11/22/2016 LEONARDO EVANS MAIL DELIVERY SUPERVISOR Ot M79.601 PAIN IN RIGHT ARM 11/22/2016 LEONARDO EVANS APRN Ot Z87.59 PERSONAL HISTORY OF COMP OF PREG, CHLDBR 11/23/2016 LEONARDO EVANS APRN Ot E11.9 TYPE 2 DIABETES MELLITUS WITHOUT COMPLIC 11/23/2016 LEONARDO EVANS APRN Ot M54.12 RADICULOPATHY, CERVICAL REGION 11/23/2016 LEONARDO EVANS APRN Ot M79.601 PAIN IN RIGHT ARM 11/23/2016 LEONARDO EVANS APRN Ot Z87.59 PERSONAL HISTORY OF COMP OF PREG, CHLDBR 07/11/2017 ERNESTO MEADOWS MD, Ot B96.20 UNSP ESCHERICHIA COLI THE CAUSE OF DI 07/11/2017 ERNESTO MEADOWS MD, Ot E11.40 TYPE 2 DIABETES MELLITUS WITH DIABETIC N 07/11/2017 ERNESTO MEADOWS MD, Ot E11.65 TYPE 2 DIABETES MELLITUS WITH HYPERGLYCE 07/11/2017 ERNESTO MEADOWS MD Ot F17.210 NICOTINE DEPENDENCE, CIGARETTES, UNCOMPL 07/11/2017 ERNESTO MEADOWS MD Ot G89.29 OTHER CHRONIC PAIN 07/11/2017 ERNESTO MEADOWS MD Ot I10 ESSENTIAL (PRIMARY) HYPERTENSION 07/11/2017 ERNESTO MEADOWS MD, Ot M54.9 DORSALGIA, UNSPECIFIED 07/11/2017 ERNESTO MEADOWS MD, Ot N39.0 URINARY TRACT INFECTION, SITE NOT SPECIF 07/11/2017 ERNESTO MEADOWS MD, Ot R07.9 CHEST PAIN, UNSPECIFIED 07/11/2017 ERNESTO MEADOWS MD Ot R51 HEADACHE 07/11/2017 ERNESTO MEADOWS MD, Ot 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.4 GROUP CONTRACT ANALYST (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) USE OF 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 07/11/2017 ERNESTO MEADOWS MD, Ot Z79.899 OTHER PENITENTIARY (CURRENT) DRUG THERAPY 07/11/2017 ERNESTO MEADOWS MD, Ot Z91.120 PT INTENTL UNDRDOSE OF MEDS REGIMEN DUE 07/11/2017 ERNESTO MEADOWS MD Ot B96.20 UNSP ESCHERICHIA COLI THE CAUSE OF DI 07/11/2017 ERNESTO MEADOWS MD, Ot E11.40 TYPE 2 DIABETES MELLITUS WITH DIABETIC N 07/11/2017 ABDIEL MD, ERNESTO N Ot E11.65 TYPE 2 DIABETES MELLITUS WITH HYPERGLYCE 07/11/2017 ERNESTO MEADOWS MD Ot F17.210 NICOTINE DEPENDENCE, CIGARETTES, UNCOMPL 07/11/2017 ERNESTO MEADOWS MD Ot G89.29 OTHER CHRONIC PAIN 07/11/2017 ERNESTO MEADOWS MD Ot I10 ESSENTIAL (PRIMARY) HYPERTENSION 07/11/2017 ERNESTO MEADOWS MD Ot M54.9 DORSALGIA, UNSPECIFIED 07/11/2017 ERNESTO MEADOWS MD Ot N39.0 URINARY TRACT INFECTION, SITE NOT SPECIF 07/11/2017 ERNESTO MEADOWS MD Ot R07.9 CHEST PAIN, UNSPECIFIED 07/11/2017 ERNESTO MEADOWS MD Ot R51 HEADACHE 07/11/2017 ERNESTO MEADOWS MD Ot 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.4 GROUP CONTRACT ANALYST (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) USE OF 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 07/11/2017 ERNESTO MEADOWS MD Ot Z79.899 OTHER GROUP CONTRACT ANALYST (CURRENT) DRUG THERAPY 07/11/2017 ERNESTO MEADOWS MD Ot Z91.120 PT INTENTL UNDRDOSE OF MEDS REGIMEN DUE 10/08/2017 LEONARDO EVANS APRN Ot E11.40 TYPE 2 DIABETES MELLITUS WITH DIABETIC N 10/08/2017 LEONARDO EVANS APRN Ot F17.210 NICOTINE DEPENDENCE, CIGARETTES, UNCOMPL 10/08/2017 LEONARDO EVANS APRN Ot M25.472 EFFUSION, LEFT ANKLE 10/08/2017 LEONARDO EVANS APRN Ot S93.402A SPRAIN OF UNSPECIFIED LIGAMENT OF LEFT A 10/08/2017 LEONARDO EVANS APRN Ot W18.49XA OTH SLIPPING, TRIPPING AND STUMBLING W/O 10/08/2017 LEONARDO EVANS APRN Ot X50.0XXA OVEREXERTION FROM STRENUOUS MOVEMENT OR 10/08/2017 LEONARDO EVANS APRN Ot Y92.[address] [facility] [address] IN [facility] 10/08/2017 LEONARDO EVANS APRN Ot Z79.4 GROUP CONTRACT ANALYST (CURRENT) USE OF INSULIN 10/08/2017 LEONARDO EVANS APRN Ot Z87.448 PERSONAL HISTORY OF OTHER DISEASES OF UR 10/08/2017 LEONARDO EVANS APRN Ot Z87.59 PERSONAL HISTORY OF COMP OF PREG, CHLDBR 10/08/2017 LEONARDO EVANS APRN Ot Z88.4 ALLERGY STATUS TO ANESTHETIC AGENT STATU 10/08/2017 LEONARDO EVANS APRN Ot Z98.51 TUBAL LIGATION STATUS 10/10/2017 LEONARDO EVANS APRN Ot E11.40 TYPE 2 DIABETES MELLITUS WITH DIABETIC N 10/10/2017 LEONARDO EVANS APRN Ot F17.210 NICOTINE DEPENDENCE, CIGARETTES, UNCOMPL 10/10/2017 LEONARDO EVANS APRN Ot M25.472 EFFUSION, LEFT ANKLE 10/10/2017 LEONARDO EVANS APRN Ot S93.402A SPRAIN OF UNSPECIFIED LIGAMENT OF LEFT A 10/10/2017 LEONARDO EVANS APRN Ot W18.49XA OTH SLIPPING, TRIPPING AND STUMBLING W/O 10/10/2017 LEONARDO EVANS APRN Ot X50.0XXA OVEREXERTION FROM STRENUOUS MOVEMENT OR 10/10/2017 LEONARDO EVANS APRN Ot Y92.[address] [facility] [address] NON-INSTITUT (PRIVATE 10/10/2017 LEONARDO EVANS APRN Ot Z79.4 GROUP CONTRACT ANALYST (CURRENT) USE OF INSULIN 10/10/2017 LEONARDO EVANS APRN Ot Z87.448 PERSONAL HISTORY OF OTHER DISEASES OF UR 10/10/2017 LEONARDO EVANS APRN Ot Z87.59 PERSONAL HISTORY OF COMP OF PREG, CHLDBR 10/10/2017 LEONARDO EVANS APRN Ot Z88.4 ALLERGY STATUS TO ANESTHETIC AGENT STATU 10/10/2017 LEONARDO EVANS APRN Ot Z98.51 TUBAL LIGATION STATUS 10/23/2017 ERNESTO MEADOWS MD Ot D64.9 ANEMIA, UNSPECIFIED 10/23/2017 ERNESTO MEADOWS MD Ot D75.9 DISEASE OF BLOOD AND BLOOD-FORMING ORGAN 10/23/2017 ERNESTO MEADOWS MD Ot E11.40 TYPE 2 DIABETES MELLITUS WITH DIABETIC N 10/23/2017 ERNESTO MEADOWS MD Ot E11.65 TYPE 2 DIABETES MELLITUS WITH HYPERGLYCE 10/23/2017 ERNESTO MEADOWS MD Ot E78.5 HYPERLIPIDEMIA, UNSPECIFIED 10/23/2017 ERNESTO MEADOWS MD Ot F17.210 NICOTINE DEPENDENCE, CIGARETTES, UNCOMPL 10/23/2017 ERNESTO MEADOWS MD Ot F41.9 ANXIETY DISORDER, UNSPECIFIED 10/23/2017 ERNESTO MEADOWS MD Ot I10 ESSENTIAL (PRIMARY) HYPERTENSION 10/23/2017 ERNESTO MEADOWS MD Ot J18.9 PNEUMONIA, UNSPECIFIED ORGANISM 10/23/2017 ERNESTO MEADOWS MD Ot M79.89 OTHER SPECIFIED SOFT TISSUE DISORDERS 10/23/2017 ERNESTO MEADOWS MD Ot R30.0 DYSURIA 10/23/2017 ERNESTO MEADOWS MD Ot Z79.4 GROUP CONTRACT ANALYST (CURRENT) USE OF INSULIN 10/25/2017 ERNESTO MEADOWS MD Ot D64.9 ANEMIA, UNSPECIFIED 10/25/2017 ERNESTO MEADOWS MD Ot D75.9 DISEASE OF BLOOD AND BLOOD-FORMING ORGAN 10/25/2017 ERNESTO MEADOWS MD Ot E11.40 TYPE 2 DIABETES MELLITUS WITH DIABETIC N 10/25/2017 ERNESTO MEADOWS MD Ot E11.65 TYPE 2 DIABETES MELLITUS WITH HYPERGLYCE 10/25/2017 ERNESTO MEADOWS MD Ot E78.5 HYPERLIPIDEMIA, UNSPECIFIED 10/25/2017 ERNESTO MEADOWS MD Ot F17.210 NICOTINE DEPENDENCE, CIGARETTES, UNCOMPL 10/25/2017 ERNESTO MEADOWS MD Ot F41.9 ANXIETY DISORDER, UNSPECIFIED 10/25/2017 ERNESTO MEADOWS MD Ot I10 ESSENTIAL (PRIMARY) HYPERTENSION 10/25/2017 ERNESTO MEADOWS MD Ot J18.9 PNEUMONIA, UNSPECIFIED ORGANISM 10/25/2017 ERNESTO MEADOWS MD Ot M79.89 OTHER SPECIFIED SOFT TISSUE DISORDERS 10/25/2017 ERNESTO MEADOWS MD Ot R30.0 DYSURIA 10/25/2017 ERNESTO MEADOWS MD Ot Z79.4 PENITENTIARY (CURRENT) USE OF INSULIN 10/25/2017 ERNESTO MEADOWS MD Ot D64.9 ANEMIA, UNSPECIFIED 10/25/2017 ERNESTO MEADOWS MD Ot D75.9 DISEASE OF BLOOD AND BLOOD-FORMING ORGAN 10/25/2017 ERNESTO MEADOWS MD Ot E11.40 TYPE 2 DIABETES MELLITUS WITH DIABETIC N 10/25/2017 ERNESTO MEADOWS MD, Ot E11.65 TYPE 2 DIABETES MELLITUS WITH HYPERGLYCE 10/25/2017 ERNESTO MEADOWS MD, Ot E78.5 HYPERLIPIDEMIA, UNSPECIFIED 10/25/2017 ERNESTO MEADOWS MD, Ot F17.210 NICOTINE DEPENDENCE, CIGARETTES, UNCOMPL 10/25/2017 ERNESTO MEADOWS MD, Ot F41.9 ANXIETY DISORDER, UNSPECIFIED 10/25/2017 ERNESTO MEADOWS MD, Ot I10 ESSENTIAL (PRIMARY) HYPERTENSION 10/25/2017 ERNESTO MEADOWS MD, Ot J18.9 PNEUMONIA, UNSPECIFIED ORGANISM 10/25/2017 ERNESTO MEADOWS MD, Ot M79.89 OTHER SPECIFIED SOFT TISSUE DISORDERS 10/25/2017 ERNESTO MEADOWS MD, Ot R30.0 DYSURIA 10/25/2017 ERNESTO MEADOWS MD, Ot Z79.4 PENITENTIARY (CURRENT) USE OF INSULIN Procedures There is no data. Results Test Result Range Pap Lb, HPV-hr - 08/29/16 15:11 HPV, high-risk Negative Negative DIAGNOSIS: Comment Specimen adequacy: Comment Clinician provided ICD10: Comment Performed by: Comment QC reviewed by: Comment . . Pathologist provided ICD10: Comment Note: Comment Genital Culture, Routine - 08/29/16 15:11 Genital Culture, Routine Note Complete blood count (CBC) with automated white blood cell (WBC) differential - 07/10/17 16:38 Blood leukocytes automated count (number/volume) 9.3 10*3/uL 4.3-11.0 Blood erythrocytes automated count (number/volume) 4.89 10*6/uL 4.35-5.85 Venous blood hemoglobin measurement (mass/volume) 13.8 g/dL 11.5-16.0 Blood hematocrit (volume fraction) 40 % 35-52 Automated erythrocyte mean corpuscular volume 82 [foz_us] 80-99 Automated erythrocyte mean corpuscular hemoglobin (mass per erythrocyte) 28 pg 25-34 Automated erythrocyte mean corpuscular hemoglobin concentration measurement ( mass/volume) 35 g/dL 32-36 Automated erythrocyte distribution width ratio 14.5 % 10.0-14.5 Automated blood platelet count (count/volume) 336 10*3/uL 130-400 Automated blood platelet mean volume measurement 9.8 [foz_us] 7.4-10.4 Automated blood neutrophils/100 leukocytes 64 % 42-75 Automated blood lymphocytes/100 leukocytes 26 % 12-44 Blood monocytes/100 leukocytes 6 % 0-12 Automated blood eosinophils/100 leukocytes 4 % 0-10 Automated blood basophils/100 leukocytes 0 % 0-10 Blood neutrophils automated count (number/volume) 5.9 10*3 1.8-7.8 Blood lymphocytes automated count (number/volume) 2.4 10*3 1.0-4.0 Blood monocytes automated count (number/volume) 0.6 10*3 0.0-1.0 Automated eosinophil count 0.4 10*3/uL 0.0-0.3 Automated blood basophil count (count/volume) 0.0 10*3/uL 0.0-0.1 PT panel in platelet poor plasma by coagulation assay - 07/10/17 16:38 Prothrombin time (PT) in platelet poor plasma by coagulation assay 12.6 s 12.2-14.7 INR in platelet poor plasma or blood by coagulation assay 0.9 0.8-1.4 Activated partial thromboplastin time (aPTT) in platelet poor plasma bycoagulation assay - 07/10/17 16:38 Activated partial thromboplastin time (aPTT) in platelet poor plasma bycoagulation assay 32 s 24-35 Blood lactic acid measurement (moles/volume) - 07/10/17 16:38 Blood lactic acid measurement (moles/volume) 1.85 mmol/L 0.50-2.00 Comprehensive metabolic panel - 07/10/17 16:38 Serum or plasma sodium measurement (moles/volume) 134 mmol/L 135-145 Serum or plasma potassium measurement (moles/volume) 5.1 mmol/L 3.6-5.0 Serum or plasma chloride measurement (moles/volume) 102 mmol/L 98-107 Carbon dioxide 24 mmol/L 21-32 Serum or plasma anion gap determination (moles/volume) 8 mmol/L 5-14 Serum or plasma urea nitrogen measurement (mass/volume) 10 mg/dL 7-18 Serum or plasma creatinine measurement (mass/volume) 0.65 mg/dL 0.60-1.30 Serum or plasma urea nitrogen/creatinine mass ratio 15 NRG Serum or plasma creatinine measurement with calculation of estimated glomerular filtration rate > NRG Serum or plasma glucose measurement (mass/volume) 340 mg/dL 70-105 Serum or plasma calcium measurement (mass/volume) 9.2 mg/dL 8.5-10.1 Serum or plasma total bilirubin measurement (mass/volume) 0.4 mg/dL 0.1-1.0 Serum or plasma alkaline phosphatase measurement (enzymatic activity/volume) 119 U/L 40-136 Serum or plasma aspartate aminotransferase measurement (enzymatic activity/ volume) 21 U/L 5-34 Serum or plasma alanine aminotransferase measurement (enzymatic activity/volume ) 11 U/L 0-55 Serum or plasma protein measurement (mass/volume) 7.7 g/dL 6.4-8.2 Serum or plasma albumin measurement (mass/volume) 3.6 g/dL 3.2-4.5 Serum or plasma phosphate measurement (mass/volume) - 07/10/17 16:38 Serum or plasma phosphate measurement (mass/volume) 3.8 mg/dL 2.3-4.7 Magnesium - 07/10/17 16:38 Magnesium 2.2 mg/dL 1.8-2.4 Serum or plasma thyrotropin measurement by detection limit <=0.05 miu/l (units/ volume) - 07/10/17 16:38 Serum or plasma thyrotropin measurement by detection limit <=0.05 miu/l (units/ volume) 0.87 u[iU]/mL 0.35-4.94 Serum or plasma C reactive protein measurement (mass/volume) - 07/10/17 16:38 Serum or plasma C reactive protein measurement (mass/volume) 0.38 mg /dL 0.00-0.50 Serum or plasma troponin i.cardiac measurement (mass/volume) - 07/10/17 16:38 Serum or plasma troponin i.cardiac measurement (mass/volume) < ng/ mL <0.30 Bacterial blood culture - 07/10/17 16:38 Bacterial blood culture NG NRG Bacterial blood culture - 07/10/17 16:59 Bacterial blood culture NG NRG Urine beta human chorionic gonadotropin (hCG) measurement - 07/10/17 17:18 Urine beta human chorionic gonadotropin (hCG) measurement NEGATIVE NEGATIVE Complete urinalysis with reflex to culture - 07/10/17 17:18 Urine color determination YELLOW NRG Urine clarity determination CLEAR NRG Urine pH measurement by test strip 6 5-9 Specific gravity of urine by test strip 1.015 1.016- 1.022 Urine protein assay by test strip, semi-quantitative 2+ NEGATIVE Urine glucose detection by automated test strip 4+ NEGATIVE Erythrocytes detection in urine sediment by light microscopy 1+ NEGATIVE Urine ketones detection by automated test strip NEGATIVE NEGATIVE Urine nitrite detection by test strip NEGATIVE NEGATIVE Urine total bilirubin detection by test strip NEGATIVE NEGATIVE Urine urobilinogen measurement by automated test strip (mass/volume) NORMAL NORMAL Urine leukocyte esterase detection by dipstick 1+ NEGATIVE Automated urine sediment erythrocyte count by microscopy (number/high power field) NONE NRG Automated urine sediment leukocyte count by microscopy (number/high power field ) [HPF] NRG Bacteria detection in urine sediment by light microscopy MODERATE NRG Squamous epithelial cells detection in urine sediment by light microscopy 2-5 NRG Crystals detection in urine sediment by light microscopy NONE NRG Casts detection in urine sediment by light microscopy NONE NRG Mucus detection in urine sediment by light microscopy NEGATIVE NRG Complete urinalysis with reflex to culture YES NRG Bacterial urine culture - 07/10/17 17:18 Bacterial urine culture [id number] NRG COLONY COUNT >100,000/ML NRG FTX;REPORTABLE SENSITIVITY REPORTED 07/11 16:05 NR Bacterial susceptibility panel - 07/10/17 17:18 Gentamicin susceptibility test by minimum inhibitory concentration < = NRG Trimethoprim/sulfamethoxazole susceptibility test by minimum inhibitoryconcentration R NRG Ampicillin susceptibility test by minimum inhibitory concentration > = NRG Tobramycin susceptibility test by minimum inhibitory concentration < = NRG Cefazolin susceptibility test by minimum inhibitory concentration < = NRG Ceftriaxone susceptibility test by minimum inhibitory concentration <= NRG Ampicillin/sulbactam susceptibility test by minimum inhibitory concentration I NRG Piperacillin/tazobactam susceptibility test by minimum inhibitory concentration S NRG Ciprofloxacin susceptibility test by minimum inhibitory concentration 1 NRG Meropenem susceptibility test by minimum inhibitory concentration < = NRG Nitrofurantoin susceptibility test by minimum inhibitory concentration 64 NRG Aztreonam susceptibility test by minimum inhibitory concentration < = NRG Extended spectrum beta lactamase (ESBL) producing bacteria susceptibility test by minimum inhibitory concentration - [facility] Urine drug screening test - 07/10/17 17:19 Urine phencyclidine detection by screening method NEGATIVE NEGATIVE Urine benzodiazepines detection by screening method POSITIVE NEGATIVE Urine cocaine detection NEGATIVE NEGATIVE Urine amphetamines detection by screening method NEGATIVE NEGATIVE Urine methamphetamine detection by screening method NEGATIVE NEGATIVE Urine cannabinoids detection by screening method NEGATIVE NEGATIVE Urine opiates detection by screening method NEGATIVE NEGATIVE Urine barbiturates detection NEGATIVE NEGATIVE Screening urine tricyclic antidepressants detection NEGATIVE NEGATIVE Urine methadone detection by screening method NEGATIVE NEGATIVE Urine oxycodone detection NEGATIVE NEGATIVE Urine propoxyphene detection NEGATIVE NEGATIVE Capillary blood glucose measurement by glucometer (mass/volume) - 07/10/17 18: 02 Capillary blood glucose measurement by glucometer (mass/volume) 221 mg/dL 70-110 Capillary blood glucose measurement by glucometer (mass/volume) - 07/10/17 20: 04 Capillary blood glucose measurement by glucometer (mass/volume) 184 mg/dL 70-110 Complete blood count (CBC) with automated white blood cell (WBC) differential - 07/11/17 03:00 Blood leukocytes automated count (number/volume) 10.2 10*3/uL 4.3-11.0 Blood erythrocytes automated count (number/volume) 4.27 10*6/uL 4.35-5.85 Venous blood hemoglobin measurement (mass/volume) 12.3 g/dL 11.5-16.0 Blood hematocrit (volume fraction) 35 % 35-52 Automated erythrocyte mean corpuscular volume 83 [foz_us] 80-99 Automated erythrocyte mean corpuscular hemoglobin (mass per erythrocyte) 29 pg 25-34 Automated erythrocyte mean corpuscular hemoglobin concentration measurement ( mass/volume) 35 g/dL 32-36 Automated erythrocyte distribution width ratio 14.6 % 10.0-14.5 Automated blood platelet count (count/volume) 322 10*3/uL 130-400 Automated blood platelet mean volume measurement 9.8 [foz_us] 7.4-10.4 Automated blood neutrophils/100 leukocytes 57 % 42-75 Automated blood lymphocytes/100 leukocytes 33 % 12-44 Blood monocytes/100 leukocytes 6 % 0-12 Automated blood eosinophils/100 leukocytes 4 % 0-10 Automated blood basophils/100 leukocytes 0 % 0-10 Blood neutrophils automated count (number/volume) 5.8 10*3 1.8-7.8 Blood lymphocytes automated count (number/volume) 3.4 10*3 1.0-4.0 Blood monocytes automated count (number/volume) 0.6 10*3 0.0-1.0 Automated eosinophil count 0.4 10*3/uL 0.0-0.3 Automated blood basophil count (count/volume) 0.0 10*3/uL 0.0-0.1 Serum or plasma troponin i.cardiac measurement (mass/volume) - 07/11/17 03:00 Serum or plasma troponin i.cardiac measurement (mass/volume) < ng/ mL <0.30 Hemoglobin A1c - 07/11/17 03:00 Blood hemoglobin A1C measurement (mass/volume) 12.2 % 4.0 -5.6 MEAN BLOOD GLUCOSE 303 % <=126 Capillary blood glucose measurement by glucometer (mass/volume) - 07/11/17 05: 05 Capillary blood glucose measurement by glucometer (mass/volume) 298 mg/dL 70-110 Whole blood basic metabolic panel - 07/11/17 09:08 Serum or plasma sodium measurement (moles/volume) 136 mmol/L 135-145 Serum or plasma potassium measurement (moles/volume) 3.7 mmol/L 3.6-5.0 Serum or plasma chloride measurement (moles/volume) 108 mmol/L 98-107 Carbon dioxide 22 mmol/L 21-32 Serum or plasma anion gap determination (moles/volume) 6 mmol/L 5-14 Serum or plasma urea nitrogen measurement (mass/volume) 15 mg/dL 7-18 Serum or plasma creatinine measurement (mass/volume) 0.59 mg/dL 0.60-1.30 Serum or plasma urea nitrogen/creatinine mass ratio 25 NRG Serum or plasma creatinine measurement with calculation of estimated glomerular filtration rate > NRG Serum or plasma glucose measurement (mass/volume) 246 mg/dL 70-105 Serum or plasma calcium measurement (mass/volume) 8.2 mg/dL 8.5-10.1 Serum or plasma troponin i.cardiac measurement (mass/volume) - 07/11/17 09:08 Serum or plasma troponin i.cardiac measurement (mass/volume) < ng/ mL <0.30 Capillary blood glucose measurement by glucometer (mass/volume) - 07/11/17 11: 19 Capillary blood glucose measurement by glucometer (mass/volume) 308 mg/dL 70-110 Complete blood count (CBC) with automated white blood cell (WBC) differential - 10/22/17 23:04 Blood leukocytes automated count (number/volume) 9.2 10*3/uL 4.3-11.0 Blood erythrocytes automated count (number/volume) 4.35 10*6/uL 4.35-5.85 Venous blood hemoglobin measurement (mass/volume) 12.0 g/dL 11.5-16.0 Blood hematocrit (volume fraction) 35 % 35-52 Automated erythrocyte mean corpuscular volume 81 [foz_us] 80-99 Automated erythrocyte mean corpuscular hemoglobin (mass per erythrocyte) 28 pg 25-34 Automated erythrocyte mean corpuscular hemoglobin concentration measurement ( mass/volume) 34 g/dL 32-36 Automated erythrocyte distribution width ratio 15.2 % 10.0-14.5 Automated blood platelet count (count/volume) 218 10*3/uL 130-400 Automated blood platelet mean volume measurement 9.9 [foz_us] 7.4-10.4 Automated blood neutrophils/100 leukocytes 14 % 42-75 Automated blood lymphocytes/100 leukocytes 71 % 12-44 Blood monocytes/100 leukocytes 11 % 0-12 Automated blood eosinophils/100 leukocytes 1 % 0-10 Automated blood basophils/100 leukocytes 2 % 0-10 Blood neutrophils automated count (number/volume) 1.3 10*3 1.8-7.8 Blood lymphocytes automated count (number/volume) 6.6 10*3 1.0-4.0 Blood monocytes automated count (number/volume) 1.0 10*3 0.0-1.0 Automated eosinophil count 0.1 10*3/uL 0.0-0.3 Automated blood basophil count (count/volume) 0.2 10*3/uL 0.0-0.1 Fibrin D-dimer FEU measurement in platelet poor plasma (mass/volume) - 23:04 Fibrin D-dimer FEU measurement in platelet poor plasma (mass/volume) 3.25 ug/mL 0.00-0.49 PT panel in platelet poor plasma by coagulation assay - 10/22/17 23:04 Prothrombin time (PT) in platelet poor plasma by coagulation assay 13.8 s 12.2-14.7 INR in platelet poor plasma or blood by coagulation assay 1.1 0.8-1.4 Activated partial thromboplastin time (aPTT) in platelet poor plasma bycoagulation assay - 10/22/17 23:04 Activated partial thromboplastin time (aPTT) in platelet poor plasma bycoagulation assay 29 s 24-35 Comprehensive metabolic panel - 10/22/17 23:04 Serum or plasma sodium measurement (moles/volume) 136 mmol/L 135-145 Serum or plasma potassium measurement (moles/volume) 3.7 mmol/L 3.6-5.0 Serum or plasma chloride measurement (moles/volume) 102 mmol/L 98-107 Carbon dioxide 20 mmol/L 21-32 Serum or plasma anion gap determination (moles/volume) 14 mmol/L 5-14 Serum or plasma urea nitrogen measurement (mass/volume) 6 mg/dL 7-18 Serum or plasma creatinine measurement (mass/volume) 0.68 mg/dL 0.60-1.30 Serum or plasma urea nitrogen/creatinine mass ratio 9 NRG Serum or plasma creatinine measurement with calculation of estimated glomerular filtration rate > NRG Serum or plasma glucose measurement (mass/volume) 357 mg/dL 70-105 Serum or plasma calcium measurement (mass/volume) 8.4 mg/dL 8.5-10.1 Serum or plasma total bilirubin measurement (mass/volume) 0.4 mg/dL 0.1-1.0 Serum or plasma alkaline phosphatase measurement (enzymatic activity/volume) 204 U/L 40-136 Serum or plasma aspartate aminotransferase measurement (enzymatic activity/ volume) 48 U/L 5-34 Serum or plasma alanine aminotransferase measurement (enzymatic activity/volume ) 46 U/L 0-55 Serum or plasma protein measurement (mass/volume) 6.3 g/dL 6.4-8.2 Serum or plasma albumin measurement (mass/volume) 2.5 g/dL 3.2-4.5 Magnesium - 10/22/17 23:04 Magnesium 1.6 mg/dL 1.8-2.4 Serum or plasma troponin i.cardiac measurement (mass/volume) - 10/22/17 23:04 Serum or plasma troponin i.cardiac measurement (mass/volume) < ng/ mL <0.30 Myoglobin, serum - 10/22/17 23:04 Myoglobin, serum 8.3 ng/mL 10.0-92.0 Serum or plasma lithium measurement (moles/volume) - 10/22/17 23:04 BNP level 25.7 pg/mL <100.0 Blood manual differential performed detection - 10/22/17 23:04 Blood monocytes/100 leukocytes 5 % NRG Manual blood segmented neutrophils/100 leukocytes 26 % NRG Blood band neutrophils/100 leukocytes 4 % NRG Manual blood lymphocytes/100 leukocytes 58 % NRG Manual eosinophils/100 leukocytes in nose 1 % NRG Manual blood lymphocytes variant/100 leukocytes 6 % NRG Blood smudge cells detection by light microscopy 122 NRG Blood polychromasia detection by light microscopy SLIGHT NRG Blood anisocytosis detection by light microscopy SLIGHT NRG Blood poikilocytosis detection by light microscopy SLIGHT NRG Blood microcytes detection by light microscopy SLIGHT NRG Blood rouleaux detection by light microscopy SLIGHT NRG Blood spherocytes detection by light microscopy SLIGHT NRG Lactate dehydrogenase 1 [enzymatic activity/volume] in serum or plasma - 23:04 Lactate dehydrogenase 1 [enzymatic activity/volume] in serum or plasma 411 U/L 125-220 Complete urinalysis with reflex to culture - 10/23/17 00:20 Urine color determination YELLOW NRG Urine clarity determination CLEAR NRG Urine pH measurement by test strip 6.5 5-9 Specific gravity of urine by test strip 1.015 1.016- 1.022 Urine protein assay by test strip, semi-quantitative 2+ NEGATIVE Urine glucose detection by automated test strip 4+ NEGATIVE Erythrocytes detection in urine sediment by light microscopy NEGATIVE NEGATIVE Urine ketones detection by automated test strip NEGATIVE NEGATIVE Urine nitrite detection by test strip NEGATIVE NEGATIVE Urine total bilirubin detection by test strip NEGATIVE NEGATIVE Urine urobilinogen measurement by automated test strip (mass/volume) NORMAL NORMAL Urine leukocyte esterase detection by dipstick 1+ NEGATIVE Automated urine sediment erythrocyte count by microscopy (number/high power field) RARE NRG Automated urine sediment leukocyte count by microscopy (number/high power field ) [HPF] NRG Bacteria detection in urine sediment by light microscopy TRACE NRG Squamous epithelial cells detection in urine sediment by light microscopy 2-5 NRG Crystals detection in urine sediment by light microscopy NONE NRG Casts detection in urine sediment by light microscopy NONE NRG Mucus detection in urine sediment by light microscopy NEGATIVE NRG Complete urinalysis with reflex to culture YES NRG Bacterial urine culture - 10/23/17 00:20 Bacterial urine culture SEE COMMEN NRG COLONY COUNT . NRG FTX;REPORTABLE 20,000 CFU/ML NRG Blood lactic acid measurement (moles/volume) - 10/23/17 01:20 Blood lactic acid measurement (moles/volume) 1.49 mmol/L 0.50-2.00 Bacterial blood culture - 10/23/17 01:20 Bacterial blood culture NG NR Pathologist review of blood test by comment - 10/23/17 01:30 Blood leukocytes automated count (number/volume) 8.1 10*3/uL 4.3-11.0 Blood erythrocytes automated count (number/volume) 4.20 10*6/uL 4.35-5.85 Venous blood hemoglobin measurement (mass/volume) 11.5 g/dL 11.5-16.0 Blood hematocrit (volume fraction) 34 % 35-52 Automated erythrocyte mean corpuscular volume 81 [foz_us] 80-99 Automated erythrocyte mean corpuscular hemoglobin (mass per erythrocyte) 27 pg 25-34 Automated erythrocyte mean corpuscular hemoglobin concentration measurement ( mass/volume) 34 g/dL 32-36 Automated erythrocyte distribution width ratio 15.1 % 10.0-14.5 Automated blood platelet count (count/volume) 201 10*3/uL 130-400 Automated blood platelet mean volume measurement 9.7 [foz_us] 7.4-10.4 Automated blood neutrophils/100 leukocytes 19 % 42-75 Automated blood lymphocytes/100 leukocytes 68 % 12-44 Blood monocytes/100 leukocytes 8 % NRG Automated blood eosinophils/100 leukocytes 1 % 0-10 Automated blood basophils/100 leukocytes 3 % 0-10 Blood neutrophils automated count (number/volume) 1.5 10*3 1.8-7.8 Blood lymphocytes automated count (number/volume) 5.5 10*3 1.0-4.0 Blood monocytes automated count (number/volume) 0.7 10*3 0.0-1.0 Automated eosinophil count 0.1 10*3/uL 0.0-0.3 Automated blood basophil count (count/volume) 0.3 10*3/uL 0.0-0.1 Manual blood segmented neutrophils/100 leukocytes 28 % NRG Blood band neutrophils/100 leukocytes 7 % NRG Manual blood lymphocytes/100 leukocytes 43 % NRG Manual eosinophils/100 leukocytes in nose 2 % NRG Manual blood lymphocytes variant/100 leukocytes 11 % NRG Blood smudge cells detection by light microscopy 127 NRG Blood polychromasia detection by light microscopy SLIGHT NRG Blood anisocytosis detection by light microscopy SLIGHT NRG Manual blood metamyelocytes/100 leukocytes 1 % NRG Blood microcytes detection by light microscopy SLIGHT NRG Blood reticulocytes count (number/volume) 105 10*9/L 24- 90 Blood reticulocytes/100 erythrocytes 2.50 % 0.50-2.40 Bacterial blood culture - 07/10/18 01:30 Bacterial blood culture NG NRG Complete blood count (CBC) with automated white blood cell (WBC) differential - 10/23/17 05:07 Blood leukocytes automated count (number/volume) 7.2 10*3/uL 4.3-11.0 Blood erythrocytes automated count (number/volume) 3.84 10*6/uL 4.35-5.85 Venous blood hemoglobin measurement (mass/volume) 10.2 g/dL 11.5-16.0 Blood hematocrit (volume fraction) 31 % 35-52 Automated erythrocyte mean corpuscular volume 82 [foz_us] 80-99 Automated erythrocyte mean corpuscular hemoglobin (mass per erythrocyte) 27 pg 25-34 Automated erythrocyte mean corpuscular hemoglobin concentration measurement ( mass/volume) 33 g/dL 32-36 Automated erythrocyte distribution width ratio 15.0 % 10.0-14.5 Automated blood platelet count (count/volume) 190 10*3/uL 130-400 Automated blood platelet mean volume measurement 10.4 [foz_us] 7.4-10.4 Automated blood neutrophils/100 leukocytes 17 % 42-75 Automated blood lymphocytes/100 leukocytes 68 % 12-44 Blood monocytes/100 leukocytes 12 % 0-12 Automated blood eosinophils/100 leukocytes 1 % 0-10 Automated blood basophils/100 leukocytes 1 % 0-10 Blood neutrophils automated count (number/volume) 1.2 10*3 1.8-7.8 Blood lymphocytes automated count (number/volume) 4.9 10*3 1.0-4.0 Blood monocytes automated count (number/volume) 0.9 10*3 0.0-1.0 Automated eosinophil count 0.1 10*3/uL 0.0-0.3 Automated blood basophil count (count/volume) 0.1 10*3/uL 0.0-0.1 Comprehensive metabolic panel - 10/23/17 05:07 Serum or plasma sodium measurement (moles/volume) 137 mmol/L 135-145 Serum or plasma potassium measurement (moles/volume) 3.2 mmol/L 3.6-5.0 Serum or plasma chloride measurement (moles/volume) 108 mmol/L 98-107 Carbon dioxide 21 mmol/L 21-32 Serum or plasma anion gap determination (moles/volume) 8 mmol/L 5-14 Serum or plasma urea nitrogen measurement (mass/volume) 6 mg/dL 7-18 Serum or plasma creatinine measurement (mass/volume) 0.57 mg/dL 0.60-1.30 Serum or plasma urea nitrogen/creatinine mass ratio 11 NRG Serum or plasma creatinine measurement with calculation of estimated glomerular filtration rate > NRG Serum or plasma glucose measurement (mass/volume) 292 mg/dL 70-105 Serum or plasma calcium measurement (mass/volume) 7.5 mg/dL 8.5-10.1 Serum or plasma total bilirubin measurement (mass/volume) 0.3 mg/dL 0.1-1.0 Serum or plasma alkaline phosphatase measurement (enzymatic activity/volume) 171 U/L 40-136 Serum or plasma aspartate aminotransferase measurement (enzymatic activity/ volume) 41 U/L 5-34 Serum or plasma alanine aminotransferase measurement (enzymatic activity/volume ) 38 U/L 0-55 Serum or plasma protein measurement (mass/volume) 5.3 g/dL 6.4-8.2 Serum or plasma albumin measurement (mass/volume) 2.2 g/dL 3.2-4.5 Lipid 1996 panel - 10/23/17 05:07 Serum or plasma triglyceride measurement (mass/volume) 429 mg/dL <150 Serum or plasma cholesterol measurement (mass/volume) 93 mg/dL < 200 Serum or plasma cholesterol in HDL measurement (mass/volume) < mg/ dL 40-60 Cholesterol in LDL [mass/volume] in serum or plasma by direct assay 30 mg/dL 1-129 Serum or plasma cholesterol in VLDL measurement (mass/volume) TNP 5-40 Serum protein electrophoresis - 10/23/17 05:07 Serum or plasma protein measurement (mass/volume) 5.1 % 6.7-8.3 Capillary blood glucose measurement by glucometer (mass/volume) - 10/23/17 10: 08 Capillary blood glucose measurement by glucometer (mass/volume) 212 mg/dL 70-110 Capillary blood glucose measurement by glucometer (mass/volume) - 10/23/17 14: 13 Capillary blood glucose measurement by glucometer (mass/volume) 235 mg/dL 70-110 Urine protein electrophoresis panel - 10/23/17 19:08 Urine protein measurement (mass/volume) 65.0 % 0.1-15.0 Capillary blood glucose measurement by glucometer (mass/volume) - 10/23/17 21: 12 Capillary blood glucose measurement by glucometer (mass/volume) 308 mg/dL 70-110 Complete blood count (CBC) with automated white blood cell (WBC) differential - 10/24/17 05:22 Blood leukocytes automated count (number/volume) 7.3 10*3/uL 4.3-11.0 Blood erythrocytes automated count (number/volume) 3.83 10*6/uL 4.35-5.85 Venous blood hemoglobin measurement (mass/volume) 10.1 g/dL 11.5-16.0 Blood hematocrit (volume fraction) 31 % 35-52 Automated erythrocyte mean corpuscular volume 82 [foz_us] 80-99 Automated erythrocyte mean corpuscular hemoglobin (mass per erythrocyte) 26 pg 25-34 Automated erythrocyte mean corpuscular hemoglobin concentration measurement ( mass/volume) 32 g/dL 32-36 Automated erythrocyte distribution width ratio 15.4 % 10.0-14.5 Automated blood platelet count (count/volume) 197 10*3/uL 130-400 Automated blood platelet mean volume measurement 9.7 [foz_us] 7.4-10.4 Automated blood neutrophils/100 leukocytes 23 % 42-75 Automated blood lymphocytes/100 leukocytes 65 % 12-44 Blood monocytes/100 leukocytes 10 % 0-12 Automated blood eosinophils/100 leukocytes 1 % 0-10 Automated blood basophils/100 leukocytes 1 % 0-10 Blood neutrophils automated count (number/volume) 1.6 10*3 1.8-7.8 Blood lymphocytes automated count (number/volume) 4.7 10*3 1.0-4.0 Blood monocytes automated count (number/volume) 0.8 10*3 0.0-1.0 Automated eosinophil count 0.1 10*3/uL 0.0-0.3 Automated blood basophil count (count/volume) 0.1 10*3/uL 0.0-0.1 Comprehensive metabolic panel - 10/24/17 05:22 Serum or plasma sodium measurement (moles/volume) 139 mmol/L 135-145 Serum or plasma potassium measurement (moles/volume) 3.6 mmol/L 3.6-5.0 Serum or plasma chloride measurement (moles/volume) 111 mmol/L 98-107 Carbon dioxide 22 mmol/L 21-32 Serum or plasma anion gap determination (moles/volume) 6 mmol/L 5-14 Serum or plasma urea nitrogen measurement (mass/volume) 9 mg/dL 7-18 Serum or plasma creatinine measurement (mass/volume) 0.46 mg/dL 0.60-1.30 Serum or plasma urea nitrogen/creatinine mass ratio 20 NRG Serum or plasma creatinine measurement with calculation of estimated glomerular filtration rate > NRG Serum or plasma glucose measurement (mass/volume) 134 mg/dL 70-105 Serum or plasma calcium measurement (mass/volume) 7.7 mg/dL 8.5-10.1 Serum or plasma total bilirubin measurement (mass/volume) 0.3 mg/dL 0.1-1.0 Serum or plasma alkaline phosphatase measurement (enzymatic activity/volume) 161 U/L 40-136 Serum or plasma aspartate aminotransferase measurement (enzymatic activity/ volume) 62 U/L 5-34 Serum or plasma alanine aminotransferase measurement (enzymatic activity/volume ) 38 U/L 0-55 Serum or plasma protein measurement (mass/volume) 5.2 g/dL 6.4-8.2 Serum or plasma albumin measurement (mass/volume) 2.2 g/dL 3.2-4.5 Magnesium - 10/24/17 05:22 Magnesium 1.4 mg/dL 1.8-2.4 THYROID STIMULATING HORMONE - 10/24/17 05:22 THYROID STIMULATING HORMONE 1.70 u[iU]/mL 0.35-4.94 Acute hepatitis panel - 10/24/17 05:22 Confirmatory quantitative serum or plasma hepatitis B virus surface antigen measurement Non-Reactive Non-Reactive Hepatitis A virus IgM antibody assay Non-Reactive Non- Reactive Hepatitis B virus core IgM antibody assay Non-Reactive Non-Reactive Serum hepatitis C virus antibody detection Non-Reactive Non-Reactive Capillary blood glucose measurement by glucometer (mass/volume) - 10/24/17 05: 56 Capillary blood glucose measurement by glucometer (mass/volume) 149 mg/dL 70-110 Capillary blood glucose measurement by glucometer (mass/volume) - 10/24/17 09: 53 Capillary blood glucose measurement by glucometer (mass/volume) 160 mg/dL 70-110 Cerebrospinal fluid cytomegalovirus IgG and IgM panel - 10/24/17 12:07 [id number] Positive Negative Serum cytomegalovirus IgM antibody assay (units/volume) > AU 0.0-29.9 Cerebrospinal fluid cytomegalovirus IgG antibody titer 4.90 u[iU]/ mL 0.00-0.59 Interpretation of cytomegalovirus (CMV) IgG antibody assay Positive Negative [id number] - 07/11/18 12:07 [id number] Positive Negative Serum Rob Madrigal virus early antibody detection 10.4 0.0-8.9 Serum Rob Madrigal virus nuclear antibody detection >600.0 0.0-17.9 Serum Rob Madrigal virus capsid IgG antibody detection >750.0 0.0-17.9 Serum Orb Madrigal virus capsid IgM antibody detection 104.0 0.0-35.9 EBV EA AB INT Equivocal Negative Encounters ACCT No. Visit Date/Time Discharge Status Pt. Type Provider Facility Loc./Unit Complaint [id number] 10/23/2017 13:15:00 10/24/2017 14:45:00 DIS Inpatient ERNESTO MEADOWS MD [facility] 4TH PNEUMONIA BILAT LL, BLOOD DYSCRASIA,HYPERGLYCEMIA [id number] 10/08/2017 21:04:00 10/08/2017 22:50:00 DIS Emergency LEONARDO EVANS APRN [facility] ER L ANKLE INJ/SWELLING [id number] 07/10/2017 18:37:00 07/11/2017 11:46:00 DIS Inpatient ERNESTO MEADOWS MD [facility] 4TH UNCONTROLLED HYPERGLYCEMIA,UTI [id number] 11/22/2016 16:23:00 11/22/2016 17:01:00 DIS Emergency LEONARDO EVANS APRN [facility] ER RT ARM PAIN [id number] 08/19/2015 08:56:00 08/19/2015 12:00:00 DIS Emergency CORNELIA KENNEDY MD [facility] ER CHEST/BACK/LEFT ARM PAIN [id number] 10/25/2017 15:59:00 ACT Inpatient ERNESTO MEADOWS MD [facility] 4TH TACHYCARDIA,HYPOXIA [id number] 09/01/2016 19:07:00 Document Registration [id number] 10/18/2017 17:05:00 10/18/2017 23:59:59 CLS Outpatient BRANNON LE [facility] [id number] 09/01/2016 08:44:00 Document Registration
[2017-10-25 19:45] VITALS: BP 120/78
--- NOTE | 2017-10-25 21:24 | History & Physicial (CHS) ---
HPI History of Present Illness: 37 yo female who was recently discharged with suspected pneumonia and abnormal blood count and leg swelling, presented to clinic today for follow-up and was noted to have increased work of breathing with desaturation to the 80s with walking and tachycardia in the 120s. She states she does okay at times but has "fits" of difficulty breathing and racing heart and gets very anxious and tearful. She has decreased exercise tolerance and had increased swelling in her legs as soon as she left the hospital. Date seen by provider: Oct 25, 2017 Time Seen by Provider: 15:00 Attending Physician Ernesto Stallings MD PCP [place] Consult Date of Admission Oct 25, 2017 at 3:59 pm Home Medications Home Medications Reviewed patient Home Medication Reconciliation performed by pharmacy medication reconciliations sonography technician and/or nursing. Patients Allergies have been reviewed. Allergies Coded Allergies: coconut (Verified Allergy, Severe, anaphylactic reaction, 07/11/17) ketorolac (Unverified Allergy, Unknown, 08/19/15) NZD-Vgwcvs-Xlczoh Hx Patient Social History Alcohol Use: Rarely Uses Recreational Drug Use: No Smoking Status: Light Tobacco Smoker Type Used: Cigars 2nd Hand Smoke Exposure: Yes Recent Foreign Travel: No Contact w/other who traveled: No Recent Hopitalizations: No Recent Infectious Disease Expo: No Physical Abuse Screen: No Sexual Abuse: No Immunizations Up To Date Date of Pneumonia Vaccine: September 09, 2016 Past Medical History Diabetes type 2 HTN HLD Surgical: x 3 I&D of left breast cyst Back surgery - discectomy Family Medical History Significant Family History: Other Conditions/Hx Family History: Diabetes mellitus 19 FATHER 19 MOTHER Review of Systems ([facility]) Constitutional: malaise EENTM: no symptoms reported Respiratory: see HPI Cardiovascular: edema Gastrointestinal: no symptoms reported Genitourinary: no symptoms reported Musculoskeletal: muscle pain Skin: no symptoms reported Psychiatric/Neurological: Anxiety Physical Exam-([facility]) Physical Exam Vital Signs VS - Last 72 Hours, by Label 10/25/17 10/25/17 10/25/17 10/25/17 16:14 16:20 17:18 17:38 Temp 99.5 Pulse 123 115 Resp 20 B/P (MAP) 124/84 (97) Pulse Ox 97 94 97 97 O2 Delivery Nasal Cannula Room Air Nasal Cannula O2 Flow Rate 2.00 2.00 FiO2 28 10/25/17 10/25/17 19:00 19:45 Temp 98.7 Pulse 113 110 Resp 18 B/P (MAP) 120/78 (92) Pulse Ox 97 O2 Delivery Nasal Cannula O2 Flow Rate 2.00 Capillary Refill : General Appearance: no apparent distress Respiratory: lungs clear, normal breath sounds Cardiovascular: no murmur, tachycardia Extremities: swelling Neurologic/Psychiatric: alert, normal mood/affect Skin: normal color, warm/dry Assessment/Plan Assessment/Plan Admission Dx Hypoxia Tachycardia Edema Admission Status: Observation Assessment & Plan Hypoxia- unclear etiology, CTA this week at prior hospitalization negative for PE, possible pneumonia, she is on azithromycin. Monitor closely. RT protocol. CXR in the am. Tachycardia- possibly secondary to underlying infection but per her report has had long-term difficulties, may need to consider beta christal. Echocardiogram pending, Cardiology consulted. Edema- Check BNP and echo, although swelling is not pitting and BNP was normal a few days ago, so not highly suspicious of CHF related swelling. TSH was normal this week on prior admission as well. DVT ppx- SCDs, enoxaparin Clinical Quality Measures DVT/VTE Risk/Contraindication: Risk Factor Score Per Nursin RFS Level Per Nursing on Admit: 2=Moderate ERNESTO STALLINGS MD Oct 25, 2017 9:24 pm
[2017-10-25] MEDS: ENOXAPARIN 40 MG/0.4 ML (LOVENOX) SYR SC SCH (22:09)
[2017-10-25] MEDS: inSUlin DETERMIR 1 UNIT/0.01 ML (LEVEMIR) CHARGE PER UNIT SQ SCH (22:10)
[2017-10-25] MEDS: RT-ALBUTEROL/IPRATROPIUM 3 ML (DUONEB) VIAL INH SCH (22:30)
[2017-10-25] MEDS: RT-ALBUTEROL/IPRATROPIUM 3 ML (DUONEB) VIAL INH PRN (22:35)
[2017-10-26 00:31] VITALS: BP 127/84
[2017-10-26] MEDS: RT-ALBUTEROL/IPRATROPIUM 3 ML (DUONEB) VIAL INH SCH ×6 (01:59→21:25)
[2017-10-26 04:15] VITALS: BP 128/81
[2017-10-26 06:17] LABS: BASOPHILS % (AUTO) 0 % (0-10); EOSINOPHILS # (AUTO) 0.1 10^3/uL (0.0-0.3); EOSINOPHILS % (AUTO) 1 % (0-10); HEMATOCRIT 31 % (35-52); LYMPHOCYTES # (AUTO) 3.5 X 10^3 (1.0-4.0); LYMPHOCYTES % (AUTO) 55 % (12-44); MEAN CORPUSCULAR HEMOGLOBIN 26 PG (25-34); MEAN CORPUSCULAR HGB CONC 32 G/DL (32-36); MEAN CORPUSCULAR VOLUME 82 FL (80-99); MEAN PLATELET VOLUME 9.9 FL (7.4-10.4); MONOCYTES # (AUTO) 0.7 X 10^3 (0.0-1.0); MONOCYTES % (AUTO) 10 % (0-12); NEUTROPHILS # (AUTO) 2.1 X 10^3 (1.8-7.8); NEUTROPHILS % (AUTO) 33 % (42-75); PLATELET COUNT 240 10^3/uL (130-400); RED BLOOD COUNT 3.78 10^6/uL (4.35-5.85); RED CELL DISTRIBUTION WIDTH 15.6 % (10.0-14.5); WHITE BLOOD COUNT 6.4 10^3/uL (4.3-11.0)
[2017-10-26 06:28] LABS: ALANINE AMINOTRANSFERASE 30 U/L (0-55); ALBUMIN 2.4 GM/DL (3.2-4.5); ALKALINE PHOSPHATASE 158 U/L (40-136); BILIRUBIN,TOTAL 0.4 MG/DL (0.1-1.0); BUN/CREATININE RATIO 17; CALCIUM 8.3 MG/DL (8.5-10.1); CARBON DIOXIDE 25 MMOL/L (21-32); CHLORIDE 103 MMOL/L (98-107); CREATININE SERUM 0.47 MG/DL (0.60-1.30); GFR ESTIMATED > 60; GLUCOSE 152 MG/DL (70-105); MAGNESIUM 1.5 MG/DL (1.8-2.4); POTASSIUM 3.3 MMOL/L (3.6-5.0); SODIUM 138 MMOL/L (135-145); TOTAL PROTEIN 5.9 GM/DL (6.4-8.2)
[2017-10-26] MEDS: metFORMIN 500 MG (GLUCOPHAGE) TAB PO SCH ×3 (06:40→19:36)
[2017-10-26] MEDS: inSUlin ASPART (NovoLOG) 1 UNIT/0.01 ML (CHARGE PER UNIT) SC SCH ×4 (07:31→19:36)
--- NOTE | 2017-10-26 07:52 | Diagnostic Imaging Report ---
INDICATION: Hypoxia PA and lateral views of the chest are obtained. Comparison is made to study of 10/22/2017. There's been significant increase in parahilar and basilar airspace disease. No pneumothorax identified. No other significant change is identified. IMPRESSION: Developing bilateral airspace disease likely due to edema. This may be secondary to congestive heart failure or noncardiogenic cause and clinical correlation is recommended. Dictated by: Dictated on workstation # [id number]
[2017-10-26 08:00] VITALS: BP 125/76
[2017-10-26] MEDS: inSUlin DETERMIR 1 UNIT/0.01 ML (LEVEMIR) CHARGE PER UNIT SQ SCH ×2 (08:21→20:13)
[2017-10-26] MEDS ORDERED: KCL 20 MEQ TAB (K-DUR) PO NR ×2 (08:49→18:00)
[2017-10-26] MEDS ORDERED: AZITHROMYCIN 250 MG TAB (ZITHROMAX) PO SCH (09:00)
[2017-10-26] MEDS ORDERED: ATORVASTATIN 80 MG (LIPITOR) TABLET PO SCH (09:00)
[2017-10-26] MEDS: MAGNESIUM 1 GM/100 ML IVPB 100 ML IV SCH ×2 (09:04→09:06)
--- NOTE | 2017-10-26 10:31 | Progress Note-Cardiology ---
Cardiology SOAP Progress Note Subjective: Continues to feel short of breath. Feels it is unchanged from yesterday. C/O chest tightness, heaviness,dyspnea with exertion. No c/o CP. No c/o palpitations, syncope or near syncope. Objective: I&O/Vital Signs 10/26/17 10/26/17 10/26/17 10/26/17 06:17 07:00 08:00 09:11 Temp 96.8 Pulse 113 102 Resp 22 B/P (MAP) 125/76 (92) Pulse Ox 95 95 96 O2 Delivery Nasal Cannula Nasal Cannula Nasal Cannula O2 Flow Rate 2.00 1.50 2.00 10/26/17 10/26/17 10/26/17 10/26/17 09:31 12:00 12:04 13:00 Temp 98.9 Pulse 110 105 Resp 24 B/P (MAP) 114/71 (85) Pulse Ox 96 95 95 O2 Delivery Nasal Cannula Nasal Cannula Nasal Cannula O2 Flow Rate 2.00 2.00 2.00 10/26/17 10/26/17 14:01 16:50 Temp 97.8 Pulse 122 Resp 18 B/P (MAP) 109/61 (77) Pulse Ox 95 98 O2 Delivery Nasal Cannula Nasal Cannula O2 Flow Rate 2.00 2.00 10/26/17 00:00 Intake Total 900 ml Balance 900 ml Weight (Pounds): 169 Weight (Ounces): 8.0 Weight (Calculated Kilograms): 76.794497 Constitutional: AAO x 3, well-developed, well-nourished Respiratory: No accessory muscle use; lungs clear to percussion, lungs clear to auscultation Cardiovascular: regular rate-rhythm, S1 and S2, systolic murmur (soft DOMINIQUE at card base) Gastrointestional: No tender; soft; No guarding, No rebound; audible bowel sounds Extremities: No clubbing, No cyanosis, No significant edema Neurologic/Psychiatric: oriented x 3, grossly intact, power is 5/5 both on sides Skin: No rash on exposed areas, No ulcerations on exposed areas Results/Procedures: Labs Laboratory Tests 10/25/17 19:01: Glucometer 274H 10/26/17 05:16: White Blood Count 6.4, Red Blood Count 3.78L, Hemoglobin 10.0L, Hematocrit 31L, Mean Corpuscular Volume 82, Mean Corpuscular Hemoglobin 26, Mean Corpuscular Hemoglobin Concent 32, Red Cell Distribution Width 15.6H, Platelet Count 240, Mean Platelet Volume 9.9, Neutrophils (%) (Auto) 33L, Lymphocytes (%) (Auto) 55H , Monocytes (%) (Auto) 10, Eosinophils (%) (Auto) 1, Basophils (%) (Auto) 0, Neutrophils # (Auto) 2.1, Lymphocytes # (Auto) 3.5, Monocytes # (Auto) 0.7, Eosinophils # (Auto) 0.1, Basophils # (Auto) 0.0, Sodium Level 138, Potassium Level 3.3L, Chloride Level 103, Carbon Dioxide Level 25, Anion Gap 10, Blood Urea Nitrogen 8, Creatinine 0.47L, Estimat Glomerular Filtration Rate > 60, BUN/ Creatinine Ratio 17, Glucose Level 152H, Calcium Level 8.3L, Magnesium Level 1.5L, Total Bilirubin 0.4, Aspartate Amino Transf (AST/SGOT) 38H, Alanine Aminotransferase (ALT/SGPT) 30, Alkaline Phosphatase 158H, Total Protein 5.9L, Albumin 2.4L 10/26/17 09:45: 10/26/17 10:43: Glucometer 172H 10/26/17 15:14: Glucometer 113H 10/26/17 17:25: Glucometer 176H Procedures NAME: [facility] REC#: [id number] PT STATUS: ADM Leona : 1980 PHYSICIAN: ERNESTO MEADOWS MD ADMIT DATE: 10/25/17 Draft Date of Exam:10/26/17 CHEST PA/LAT (2 VIEW) INDICATION: Hypoxia PA and lateral views of the chest are obtained. Comparison is made to study of 10/22/2017. There's been significant increase in parahilar and basilar airspace disease. No pneumothorax identified. No other significant change is identified. IMPRESSION: Developing bilateral airspace disease likely due to edema. This may be secondary to congestive heart failure or noncardiogenic cause and clinical correlation is recommended. Dictated on workstation # [id number] Dict: 10/26/17 0750 Trans: 10/26/17 [id number] [facility] [id number] Interpreted by: BRAXTON LIZAMA MD Electronically signed by: A/P: Assessment: Shortness of breath likely due to pneumonia (based on CT chest of 10/23/17) CT chest angio on 10/23/17 did not show any PE Echocardiogram of 10-25-17 showed LVEF 55-60%. Mild TR. PASP 30 mmHg Bilat leg swelling likely due to venous insufficiency. Bilat leg venous Duplex of 10/23/17 did not show any DVT Sinus tach, prob due to pneumonia DM II Chronic tobacco use Plan: * Echocardiogram shows LVEF 55-60% * Monitor labs * Management of pneumonia is with the Med Svce * We spoke with her and answered CV-related questions * Electrolyte abnormalities - replacement in progress Physician Assessment Physician Assessment Please also refer to my separate note of the same date done at approx 6 pm R[facility]PH [employer] Oct 26, 2017 10:31 ALBER PRICE MD FACP [facility] Oct 26, 2017 17:57
[2017-10-26 12:00] VITALS: BP 114/71
[2017-10-26] MEDS: RT-ALBUTEROL/IPRATROPIUM 3 ML (DUONEB) VIAL INH PRN (12:04)
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
--- NOTE | 2017-10-26 16:28 | Diagnostic Imaging Report ---
PROCEDURE: US Hepatic (Liver). TECHNIQUE: Multiple real-time grayscale images were obtained over the right upper quadrant in various projections. INDICATION: Elevated liver function test. COMPARISON: None available. FINDINGS: The liver is normal in size and echogenicity. There is no focal hepatic mass. The main portal vein is patent with antegrade flow. The gallbladder is distended without gallstones, wall thickening, or pericholecystic fluid. The common bile duct measures up to 0.4 cm in diameter. No intrahepatic biliary dilation. Pancreas is obscured by overlying bowel gas and therefore not evaluated. The right kidney is normal in size. No hydronephrosis, shadowing calculi, or suspicious mass lesion. IMPRESSION: 1. Normal right upper quadrant ultrasound. Dictated by: Dictated on workstation # [id number]
[2017-10-26 16:50] VITALS: BP 109/61
[2017-10-26] MEDS ORDERED: FUROSEMIDE 40 MG/4 ML INJ (LASIX) IVP NR (18:00)
[2017-10-26] MEDS ORDERED: ASPIRIN 81 MG CHEW (CHILDREN'S ASA) PO NR (18:00)
--- NOTE | 2017-10-26 18:04 | Progress Note-Cardiology ---
Cardiology SOAP Progress Note Subjective: Has had episodes of shortness of breath Provides additional information today. States has had cp episodes for the last several month: exertional, several times a week, lasting up to 30 min, relieved with rest, mod in intensity, feeling of pressure, associated with shortness of breath Objective: I&O/Vital Signs 10/26/17 10/26/17 10/26/17 10/26/17 06:17 07:00 08:00 09:11 Temp 96.8 Pulse 113 102 Resp 22 B/P (MAP) 125/76 (92) Pulse Ox 95 95 96 O2 Delivery Nasal Cannula Nasal Cannula Nasal Cannula O2 Flow Rate 2.00 1.50 2.00 10/26/17 10/26/17 10/26/17 10/26/17 09:31 12:00 12:04 13:00 Temp 98.9 Pulse 110 105 Resp 24 B/P (MAP) 114/71 (85) Pulse Ox 96 95 95 O2 Delivery Nasal Cannula Nasal Cannula Nasal Cannula O2 Flow Rate 2.00 2.00 2.00 10/26/17 10/26/17 14:01 16:50 Temp 97.8 Pulse 122 Resp 18 B/P (MAP) 109/61 (77) Pulse Ox 95 98 O2 Delivery Nasal Cannula Nasal Cannula O2 Flow Rate 2.00 2.00 10/26/17 00:00 Intake Total 900 ml Balance 900 ml Weight (Pounds): 169 Weight (Ounces): 8.0 Weight (Calculated Kilograms): 76.741091 Constitutional: AAO x 3, well-developed, well-nourished Respiratory: No accessory muscle use; lungs clear to percussion, lungs clear to auscultation Cardiovascular: regular rate-rhythm, S1 and S2, systolic murmur (soft DOMINIQUE at card base) Gastrointestional: No tender; soft; No guarding, No rebound; audible bowel sounds Extremities: No clubbing, No cyanosis, No significant edema Neurologic/Psychiatric: oriented x 3, grossly intact, power is 5/5 both on sides Skin: No rash on exposed areas, No ulcerations on exposed areas Results/Procedures: Labs Laboratory Tests 10/25/17 19:01: Glucometer 274H 10/26/17 05:16: White Blood Count 6.4, Red Blood Count 3.78L, Hemoglobin 10.0L, Hematocrit 31L, Mean Corpuscular Volume 82, Mean Corpuscular Hemoglobin 26, Mean Corpuscular Hemoglobin Concent 32, Red Cell Distribution Width 15.6H, Platelet Count 240, Mean Platelet Volume 9.9, Neutrophils (%) (Auto) 33L, Lymphocytes (%) (Auto) 55H , Monocytes (%) (Auto) 10, Eosinophils (%) (Auto) 1, Basophils (%) (Auto) 0, Neutrophils # (Auto) 2.1, Lymphocytes # (Auto) 3.5, Monocytes # (Auto) 0.7, Eosinophils # (Auto) 0.1, Basophils # (Auto) 0.0, Sodium Level 138, Potassium Level 3.3L, Chloride Level 103, Carbon Dioxide Level 25, Anion Gap 10, Blood Urea Nitrogen 8, Creatinine 0.47L, Estimat Glomerular Filtration Rate > 60, BUN/ Creatinine Ratio 17, Glucose Level 152H, Calcium Level 8.3L, Magnesium Level 1.5L, Total Bilirubin 0.4, Aspartate Amino Transf (AST/SGOT) 38H, Alanine Aminotransferase (ALT/SGPT) 30, Alkaline Phosphatase 158H, Total Protein 5.9L, Albumin 2.4L 10/26/17 09:45: 10/26/17 10:43: Glucometer 172H 10/26/17 15:14: Glucometer 113H 10/26/17 17:25: Glucometer 176H A/P: Assessment: Shortness of breath and exertional chest discomfort: suggestive of unstable angina and, possibly, acute diastolic CHF (although BNP is in the normal range) Pneumonia (based on CT chest of 10/23/17) CT chest angio on 10/23/17 did not show any PE Echocardiogram of 10-25-17 showed LVEF 55-60%. Mild TR. PASP 30 mmHg Bilat leg swelling likely due to venous insufficiency and/or ac sim CHF. Bilat leg venous Duplex of 10/23/17 did not show any DVT Sinus tach DM II Chronic tobacco use Plan: * I had a long and detailed discussion with her and her significant other * Given that the Med Scve has low suspicion for pneumonia and given symptoms and a CXR today that has indicated pulm edema and her cor risk factors, we recommend card cath for cor eval * Treat with aspirin and beta-christal * We had a detailed discussion regarding the rationale, procedure, risks, benefits, complications, and alternatives of card cath and possible ad hoc PCI. She understands and provides informed consent ALBER PRICE MD FACP [facility] Oct 26, 2017 18:03
[2017-10-26] MEDS: ENOXAPARIN 40 MG/0.4 ML (LOVENOX) SYR SC SCH (20:12)
[2017-10-26] MEDS ORDERED: ATORVASTATIN 40 MG (LIPITOR) TABLET PO SCH (21:00)
[2017-10-26 23:49] VITALS: BP 122/67
[2017-10-27] VITALS (13 sets, daily range): BP systolic 110–145; BP diastolic 65–93
[2017-10-27] MEDS: RT-ALBUTEROL/IPRATROPIUM 3 ML (DUONEB) VIAL INH SCH ×6 (02:04→21:34)
[2017-10-27 05:42] LABS: BASOPHILS % (AUTO) 1 % (0-10); EOSINOPHILS # (AUTO) 0.1 10^3/uL (0.0-0.3); EOSINOPHILS % (AUTO) 2 % (0-10); HEMATOCRIT 31 % (35-52); HEMOGLOBIN 10.1 G/DL (11.5-16.0); LYMPHOCYTES # (AUTO) 2.7 X 10^3 (1.0-4.0); LYMPHOCYTES % (AUTO) 45 % (12-44); MEAN CORPUSCULAR HEMOGLOBIN 27 PG (25-34); MEAN CORPUSCULAR HGB CONC 32 G/DL (32-36); MEAN CORPUSCULAR VOLUME 82 FL (80-99); MEAN PLATELET VOLUME 9.1 FL (7.4-10.4); MONOCYTES # (AUTO) 0.6 X 10^3 (0.0-1.0); MONOCYTES % (AUTO) 10 % (0-12); NEUTROPHILS # (AUTO) 2.6 X 10^3 (1.8-7.8); NEUTROPHILS % (AUTO) 43 % (42-75); PLATELET COUNT 289 10^3/uL (130-400); RED BLOOD COUNT 3.79 10^6/uL (4.35-5.85); RED CELL DISTRIBUTION WIDTH 15.5 % (10.0-14.5)
[2017-10-27 06:05] LABS: ALANINE AMINOTRANSFERASE 26 U/L (0-55); ALBUMIN 2.6 GM/DL (3.2-4.5); ALKALINE PHOSPHATASE 168 U/L (40-136); BILIRUBIN,TOTAL 0.3 MG/DL (0.1-1.0); BUN/CREATININE RATIO 22; CALCIUM 8.7 MG/DL (8.5-10.1); CARBON DIOXIDE 25 MMOL/L (21-32); CHLORIDE 102 MMOL/L (98-107); CHOLESTEROL 88 MG/DL (< 200); CREATININE SERUM 0.51 MG/DL (0.60-1.30); GFR ESTIMATED > 60; GLUCOSE 152 MG/DL (70-105); HDL CHOLESTEROL 20 MG/DL (40-60); MAGNESIUM 1.5 MG/DL (1.8-2.4); SODIUM 137 MMOL/L (135-145); TOTAL PROTEIN 6.3 GM/DL (6.4-8.2); TRIGLYCERIDES 113 MG/DL (<150); VLDL CHOLESTEROL 23 MG/DL (5-40)
[2017-10-27] MEDS: ASPIRIN 81 MG CHEW (CHILDREN'S ASA) PO SCH (08:20)
[2017-10-27] MEDS: inSUlin DETERMIR 1 UNIT/0.01 ML (LEVEMIR) CHARGE PER UNIT SQ SCH ×2 (08:20→21:08)
[2017-10-27] MEDS ORDERED: NS IV 1000 ML 1,000 ML ONE (09:07)
[2017-10-27] MEDS ORDERED: HEParin (CATH LAB) 2,000 ML IV ONE (09:07)
[2017-10-27] MEDS ORDERED: LIDOCAINE 1% INJ 20 ML 20 ML VIAL ONE (09:07)
[2017-10-27] MEDS ORDERED: fentaNYL INJECTION 100 MCG/2 ML AMP ONE (09:15)
[2017-10-27] MEDS ORDERED: MIDAZOLAM 5 MG/5 ML (VERSED) VIAL ONE (09:15)
[2017-10-27] MEDS ORDERED: diphenhydrAMINE 50 MG/ML INJ (BENADRYL) ONE (09:15)
--- NOTE | 2017-10-27 09:47 | Progress Note (SOAP) ---
Subjective Subjective/Events-last exam Patient still does report having shortness of breath. She denies any significant cough. She is still requiring nasal cannula oxygen. Review of Systems Date Seen by Provider: Oct 27, 2017 Time Seen by Provider: 08:15 Objective Exam Last Set of Vital Signs Vital Signs Date Time Temp Pulse Resp B/P (MAP) Pulse Ox O2 Delivery O2 Flow Rate FiO2 10/27/17 08:48 Nasal Cannula 2.00 10/27/17 08:00 98.2 118 22 131/72 (91) 97 10/25/17 17:18 28 Capillary Refill : I&O Intake and Output 10/27/17 00:00 Intake Total 1570 ml Balance 1570 ml Intake Oral 1370 ml IV Total 200 ml # Voids 7 General: No Acute Distress (But she does appear apprehensive) HEENT: Mucous Memb Moist/[place] Neck: Supple Lungs: Normal Air Movement Heart: Regular Rate Abdomen: Soft Skin: No Rashes Results/Procedures Lab Laboratory Tests 10/26/17 09:45: 10/26/17 10:43: Glucometer 172H 10/26/17 15:14: Glucometer 113H 10/26/17 17:25: Glucometer 176H 10/26/17 21:06: Glucometer 194H 10/27/17 05:14: White Blood Count 6.0, Red Blood Count 3.79L, Hemoglobin 10.1L, Hematocrit 31L, Mean Corpuscular Volume 82, Mean Corpuscular Hemoglobin 27, Mean Corpuscular Hemoglobin Concent 32, Red Cell Distribution Width 15.5H, Platelet Count 289, Mean Platelet Volume 9.1, Neutrophils (%) (Auto) 43, Lymphocytes (%) (Auto) 45H , Monocytes (%) (Auto) 10, Eosinophils (%) (Auto) 2, Basophils (%) (Auto) 1, Neutrophils # (Auto) 2.6, Lymphocytes # (Auto) 2.7, Monocytes # (Auto) 0.6, Eosinophils # (Auto) 0.1, Basophils # (Auto) 0.0, Sodium Level 137, Potassium Level 4.0, Chloride Level 102, Carbon Dioxide Level 25, Anion Gap 10, Blood Urea Nitrogen 11, Creatinine 0.51L, Estimat Glomerular Filtration Rate > 60, BUN /Creatinine Ratio 22, Glucose Level 152H, Calcium Level 8.7, Magnesium Level 1.5L, Total Bilirubin 0.3, Aspartate Amino Transf (AST/SGOT) 38H, Alanine Aminotransferase (ALT/SGPT) 26, Alkaline Phosphatase 168H, Total Protein 6.3L, Albumin 2.6L, Triglycerides Level 113, Cholesterol Level 88, LDL Cholesterol Direct 57, VLDL Cholesterol 23, HDL Cholesterol 20L, Thyroid Stimulating Hormone (TSH) 2.42 10/27/17 09:17: Glucometer 294H Radiology 10/26/17 CXR IMPRESSION: Developing bilateral airspace disease likely due to edema. This may be secondary to congestive heart failure or noncardiogenic cause and clinical correlation is recommended. ECHO - EF 55-60%, Pulmonary artery systolic pressure ~30mmHg Assessment/Plan Assessment/Plan Admission Status: Inpatient Order (span 2 midnights) Reason for Inpatient Admission: Oxygen therapy, cardiology consultation Assessment & Plan Hypoxia- unclear etiology, CTA this week at prior hospitalization negative for PE, possible pneumonia, she is on azithromycin. Monitor closely. RT protocol. CXR in the am. 10/26 - pt has episode of increased tachypnea when she ambulates to the bathroom 10/27 - oxygen by nasal cannula continues. -Patient may need her chest x-ray rechecked Tachycardia- possibly secondary to underlying infection but per her report has had long-term difficulties, may need to consider beta christal. Echocardiogram pending, Cardiology consulted. 10/26 - Pt has continued tachycardia still thought to be possibly secondary to underlying infection. Pt had normal echo. 10/27 - apparently patient is having cardiac catheterization per cardiology today Edema- Check BNP and echo, although swelling is not pitting and BNP was normal a few days ago, so not highly suspicious of CHF related swelling. TSH was normal this week on prior admission as well. CMV - pt has elevated CMV IgG and IgM, could be possibly new CMV infection. Will also check pt's HIV status and get US of gallbladder to rule out possible hepatic involvement due to increased AST. DVT ppx- SCDs, enoxaparin Clinical Quality Measures DVT/VTE Risk/Contraindication: Risk Factor Score Per Nursin RFS Level Per Nursing on Admit: 2=Moderate ALBARO HUTCHINS MD Oct 27, 2017 09:47
[2017-10-27] MEDS ORDERED: HEParin 1000 UNIT/ML (10ML VIAL) FOR BOLUS ONE (10:28)
[2017-10-27] MEDS ORDERED: NITRO DRIP 25000 MCG/D5W 250 ML IV ONE (10:28)
[2017-10-27] MEDS ORDERED: EPTIFIBATIDE BOLUS 20 ML IV ONE (10:29)
[2017-10-27] MEDS ORDERED: MIDAZOLAM 2 MG/2 ML (VERSED) VIAL ONE (10:32)
[2017-10-27] MEDS ORDERED: ASPIRIN 81 MG CHEW (CHILDREN'S ASA) ONE (10:55)
[2017-10-27] MEDS ORDERED: CLOPIDOGREL 300 MG (PLAVIX) TABLET PO ONE ×2 (10:55→10:59)
[2017-10-27] MEDS ORDERED: NS IV 1000 ML 1,000 ML IV SCH (11:02)
[2017-10-27] MEDS ORDERED: FUROSEMIDE 40 MG (LASIX) TAB PO NR (11:15)
[2017-10-27] MEDS ORDERED: KCL 20 MEQ TAB (K-DUR) PO NR (11:15)
[2017-10-27] MEDS ORDERED: PATIENT MAY USE OWN MEDS, ALL PO SCH (11:15)
--- NOTE | 2017-10-27 11:20 | Progress Note-Cardiology ---
Cardiology SOAP Progress Note Subjective: Leg swelling and shortness of breath somewhat better No palpitations or cp or syncope Objective: I&O/Vital Signs 10/26/17 10/27/17 10/27/17 10/27/17 23:49 01:00 02:05 07:05 Temp 99.1 Pulse 116 108 Resp 18 B/P (MAP) 122/67 (85) Pulse Ox 96 96 98 O2 Delivery Nasal Cannula Nasal Cannula Nasal Cannula O2 Flow Rate 2.00 2.00 2.00 10/27/17 10/27/17 10/27/17 08:00 08:48 11:00 Temp 98.2 Pulse 118 96 Resp 22 B/P (MAP) 131/72 (91) Pulse Ox 97 O2 Delivery Nasal Cannula Nasal Cannula O2 Flow Rate 2.00 2.00 10/27/17 00:00 Intake Total 1120 ml Balance 1120 ml Weight (Pounds): 169 Weight (Ounces): 8.0 Weight (Calculated Kilograms): 76.968513 Constitutional: AAO x 3, well-developed, well-nourished Respiratory: No accessory muscle use; lungs clear to percussion, lungs clear to auscultation Cardiovascular: regular rate-rhythm, S1 and S2, systolic murmur (soft DOMINIQUE at card base) Gastrointestional: No tender; soft; No guarding, No rebound; audible bowel sounds Extremities: No clubbing, No cyanosis, No significant edema Neurologic/Psychiatric: oriented x 3, grossly intact, power is 5/5 both on sides Skin: No rash on exposed areas, No ulcerations on exposed areas Results/Procedures: Labs Laboratory Tests 10/26/17 15:14: Glucometer 113H 10/26/17 17:25: Glucometer 176H 10/26/17 21:06: Glucometer 194H 10/27/17 05:14: White Blood Count 6.0, Red Blood Count 3.79L, Hemoglobin 10.1L, Hematocrit 31L, Mean Corpuscular Volume 82, Mean Corpuscular Hemoglobin 27, Mean Corpuscular Hemoglobin Concent 32, Red Cell Distribution Width 15.5H, Platelet Count 289, Mean Platelet Volume 9.1, Neutrophils (%) (Auto) 43, Lymphocytes (%) (Auto) 45H , Monocytes (%) (Auto) 10, Eosinophils (%) (Auto) 2, Basophils (%) (Auto) 1, Neutrophils # (Auto) 2.6, Lymphocytes # (Auto) 2.7, Monocytes # (Auto) 0.6, Eosinophils # (Auto) 0.1, Basophils # (Auto) 0.0, Sodium Level 137, Potassium Level 4.0, Chloride Level 102, Carbon Dioxide Level 25, Anion Gap 10, Blood Urea Nitrogen 11, Creatinine 0.51L, Estimat Glomerular Filtration Rate > 60, BUN /Creatinine Ratio 22, Glucose Level 152H, Calcium Level 8.7, Magnesium Level 1.5L, Total Bilirubin 0.3, Aspartate Amino Transf (AST/SGOT) 38H, Alanine Aminotransferase (ALT/SGPT) 26, Alkaline Phosphatase 168H, Total Protein 6.3L, Albumin 2.6L, Triglycerides Level 113, Cholesterol Level 88, LDL Cholesterol Direct 57, VLDL Cholesterol 23, HDL Cholesterol 20L, Thyroid Stimulating Hormone (TSH) 2.42 10/27/17 09:17: Glucometer 294H A/P: Assessment: CAD. Card cath of 10/27/17 showed 90% mid-distal LAD stenosis that was successfully stented with Alp Xience 2.25x15 mm stent; multiple 50% stenoses in the LAD; 60% stenosis in prox D2; mild to mod diff disease of LCX; 30-40% distal RCA; LVEF 65%; LVEDP 23 mmHg Acute diastolic CHF (although BNP is in the normal range) Pneumonia (based on CT chest of 10/23/17) CT chest angio on 10/23/17 did not show any PE Echocardiogram of 10-25-17 showed LVEF 55-60%. Mild TR. PASP 30 mmHg Bilat leg swelling likely due to venous insufficiency and/or ac sim CHF. Bilat leg venous Duplex of 10/23/17 did not show any DVT Sinus tach DM II Chronic tobacco use Plan: * Plavix added * Continue ASA and statin * Increase beta-christal * Add furosemide and K * Correct electrolytes * Monitor labs * Advised to quit tobacco use immediately and completely ALBER PRICE MD FACP [facility] Oct 27, 2017 11:20
--- NOTE | 2017-10-27 11:21 | Cardiac Procedure Note-CS/ASA ---
Pre-Procedure Note Pre-Op Procedure Note H&P Reviewed The H&P was reviewed, patient examined and no changes noted. Date H&P Reviewed: Oct 27, 2017 Time H&P Reviewed: 10:05 Conscious Sedation Pre-Proced Time Reviewed: 10:05 ASA Class: 3 Airway Mallampati Classification: ([place] appropriate class) I. II. III, IV Lungs Heart ASA score ASA 1: a normal healthy patient ASA 2: a patient with a mild systemic disease (mid diabetes, controlled hypertension, obesity ASA 3: a patient with a severe systemic disease that limits activity (angina , COPD, prior Myocardial infarction) ASA 4: a patient with an incapacitating disease that is a constant threat to life (CHF, renal failure) ASA 5: a moribund patient not expected to survive 24 hrs. (ruptured aneurysm) ASA 6: a declared brain patient whose organs are being harvested. For emergent operations, add the letter E after the classification Grade 2 Sedation Plan: Analgesia, Amnesia, Plan communicated to team members, Discussed options with patient/fam, Discussed risks with patient/fam Note The patient is an appropriate candidate to undergo the planned procedure, sedation, and anesthesia. The patient immediately re-assessed prior to indication. ALBER PRICE MD FACP [facility] Oct 27, 2017 11:21
[2017-10-27] MEDS: MAGNESIUM 1 GM/100 ML IVPB 100 ML IV SCH ×2 (12:37→12:40)
[2017-10-27] MEDS: inSUlin ASPART (NovoLOG) 1 UNIT/0.01 ML (CHARGE PER UNIT) SC SCH ×2 (12:37→17:01)
--- NOTE | 2017-10-27 15:40 | CARDIAC CATHETERIZATION ---
DATE OF SERVICE: 10/27/2017 CARDIAC CATHETERIZATION AND CORONARY INTERVENTION REPORT PRIMARY PHYSICIAN: Anastasiya Stallings MD. The patient is a 37-year-old lady with multiple coronary artery disease risk factors including maturity onset diabetes mellitus who was hospitalized with acute diastolic congestive heart failure. She has been reporting symptoms of chest discomfort that are consistent with crescendo angina. Cardiac catheterization was carried out today after having obtained informed consent for cardiac catheterization, possible ad hoc coronary intervention. DESCRIPTION OF PROCEDURE: She was brought to the cardiac catheterization laboratory in a fasting state. Right groin was cleaned in the usual sterile fashion. Lidocaine 1% used for local anesthesia. Modified Seldinger technique was used to advance a 5-[place] in the right femoral artery, 5-[place] JL4 catheter for left coronary angiography, 5-[place] JR4 catheter for right coronary artery. A 5-[place] pigtail catheter was used for left heart catheterization, left ventricular angiography. LEFT VENTRICULAR ANGIOGRAPHY: Left ventricular angiography was carried out in the right anterior oblique projection. Global left ventricular systolic function normal. No regional wall motion abnormality was seen. Left ventricular ejection fraction estimated to be 65%. There does not appear to be significant mitral regurgitation. PERCUTANEOUS INTERVENTION TO THE LEFT ANTERIOR DESCENDING ARTERY: Following completion of the diagnostic procedure, we carried out percutaneous intervention to the mid to distal left anterior descending artery where the patient had 90% stenosis. We exchanged the sheath over a wire for a 6-[place] sheath. We gave 5000 units of intravenous heparin and double bolus Integrilin. We used a 6-[place] JL4 guide catheter to engage the left coronary artery. We advanced a BMW wire across the lesion in the left anterior descending artery and the tip was placed in the distal vessel. We carried out balloon angioplasty with Emerge 2.0 x 20 mm balloon and then carried out stenting with Alpine Xience 2.25 x 15 mm stent that was deployed at 10 atmospheres. Subsequent angiography revealed 0% residual stenosis at the previous site of 90% stenosis in the mid to distal left anterior descending artery, following the origin of the second diagonal branch. The rest of the left anterior descending artery has multiple up to 50% stenoses that were not intervened on. The second diagonal branch of the left anterior descending artery has approximately 60% proximal stenosis that was not intervened on. The left circumflex artery has diffuse mild to moderate plaques. The right coronary artery has 30-40% distal stenosis. Right coronary artery is dominant. CONCLUSIONS: 1. Coronary artery disease primarily consisting of 90% mid to distal stenosis in the left anterior descending artery to which successful percutaneous intervention was carried out. Following deployment of Alpine Xience 2.25 x 15 mm stent, there is 0% residual stenosis. The rest of the left anterior descending artery has multiple 50% stenoses. In the second diagonal branch, the left anterior descending artery has approximately 60% proximal stenosis. The left circumflex artery has diffuse mild to moderate disease. Right coronary artery has 30-40% distal stenosis. 2. Normal global left ventricular systolic function with ejection fraction 65%. 3. Elevated left ventricular end-diastolic pressure. 4. No significant mitral regurgitation. DISCUSSION AND RECOMMENDATIONS: Aspirin, Plavix, statin and beta blockers have been added to the regimen. She remains hospitalized after today's intervention and medications are being optimized. Risk factor modification has been reviewed in detail. Job ID: [id number] DocumentID: [id number] Dictated Date: 10/27/2017 10:58:58 Real Estate Clerk Date: 10/27/2017 15:39:50 Dictated By: ALBER PRICE MD, MA, FACP, FACC,
[2017-10-27] MEDS: ATORVASTATIN 40 MG (LIPITOR) TABLET PO SCH (21:08)
[2017-10-27] MEDS: ENOXAPARIN 40 MG/0.4 ML (LOVENOX) SYR SC SCH (21:08)
[2017-10-27] MEDS ORDERED: ANTACID SUSP 30 ML UDC (MYLANTA) PO STA (21:37)
[2017-10-27] MEDS ORDERED: PANTOPRAZOLE 40 MG/10 ML (PROTONIX) VIAL IV ONE (21:45)
[2017-10-27] MEDS ORDERED: ANTACID SUSP 30 ML UDC (MYLANTA) PO PRN (21:45)
[2017-10-27] MEDS: morphine INJ 4 MG/ML 1 ML (VIAL/SYRINGE) IVP PRN (23:21)
[2017-10-28] VITALS (7 sets, daily range): BP systolic 98–143; BP diastolic 62–89
[2017-10-28] MEDS: RT-ALBUTEROL/IPRATROPIUM 3 ML (DUONEB) VIAL INH SCH ×5 (00:58→19:09)
[2017-10-28] MEDS ORDERED: ALPRAZolam 0.5 MG (XANAX) TAB PO STA (01:13)
[2017-10-28] MEDS ORDERED: ALPRAZolam 0.5 MG (XANAX) TAB PO PRN (01:15)
[2017-10-28] MEDS: morphine INJ 4 MG/ML 1 ML (VIAL/SYRINGE) IVP PRN (01:27)
[2017-10-28] MEDS ORDERED: morphine INJ 4 MG/ML 1 ML (VIAL/SYRINGE) IVP PRN (02:00)
[2017-10-28] MEDS: inSUlin ASPART (NovoLOG) 1 UNIT/0.01 ML (CHARGE PER UNIT) SC SCH ×3 (06:04→16:57)
[2017-10-28] MEDS: KCL 20 MEQ TAB (K-DUR) PO SCH (06:04)
[2017-10-28] MEDS: PANTOPRAZOLE 40 MG (PROTONIX) TAB PO SCH (06:04)
[2017-10-28 06:16] LABS: HEMOGLOBIN 10.2 G/DL (11.5-16.0); MEAN PLATELET VOLUME 8.7 FL (7.4-10.4); RED BLOOD COUNT 3.81 10^6/uL (4.35-5.85); RED CELL DISTRIBUTION WIDTH 15.5 % (10.0-14.5); WHITE BLOOD COUNT 5.8 10^3/uL (4.3-11.0)
[2017-10-28 06:35] LABS: BUN/CREATININE RATIO 16; CALCIUM 8.8 MG/DL (8.5-10.1); CARBON DIOXIDE 28 MMOL/L (21-32); CHLORIDE 100 MMOL/L (98-107); CREATININE SERUM 0.51 MG/DL (0.60-1.30); GFR ESTIMATED > 60; GLUCOSE 133 MG/DL (70-105); MAGNESIUM 1.8 MG/DL (1.8-2.4); POTASSIUM 3.9 MMOL/L (3.6-5.0); SODIUM 138 MMOL/L (135-145)
--- NOTE | 2017-10-28 07:53 | Progress Note (SOAP) ---
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 Apparently she' s been having some chest discomfort after the cardiac catheterization. She did gain some relief after having morphine, beta christal, as well as a acid reducing pill. She also does become short of breath when she is walking. She reports she has to put back on the nasal cannula oxygen. Review of Systems Date Seen by Provider: Oct 28, 2017 Time Seen by Provider: 07:00 Objective Exam Last Set of Vital Signs Vital Signs Date Time Temp Pulse Resp B/P (MAP) Pulse Ox O2 Delivery O2 Flow Rate FiO2 10/28/17 06:22 97 Nasal Cannula 2.00 10/28/17 04:00 97.1 107 20 122/82 (95) 10/25/17 17:18 28 Capillary Refill : Less Than 3 Seconds I&O Intake and Output 10/28/17 00:00 Intake Total 3222 ml Output Total 1000 ml Balance 2222 ml Intake Oral 2022 ml IV Total 1200 ml Output Urine Total 1000 ml # Voids 4 # Bowel Movements 1 General: No Acute Distress Neck: Supple Lungs: Clear to Auscultation Heart: Regular Rate Abdomen: Soft Results/Procedures Lab Laboratory Tests 10/27/17 09:17: Glucometer 294H 10/27/17 15:37: Glucometer 129H 10/27/17 20:29: Glucometer 177H 10/28/17 04:55: Glucometer 136H 10/28/17 05:16: White Blood Count 5.8, Red Blood Count 3.81L, Hemoglobin 10.2L, Hematocrit 32L, Mean Corpuscular Volume 83, Mean Corpuscular Hemoglobin 27, Mean Corpuscular Hemoglobin Concent 32, Red Cell Distribution Width 15.5H, Platelet Count 354, Mean Platelet Volume 8.7, Sodium Level 138, Potassium Level 3.9, Chloride Level 100, Carbon Dioxide Level 28, Anion Gap 10, Blood Urea Nitrogen 8, Creatinine 0.51L, Estimat Glomerular Filtration Rate > 60, BUN/Creatinine Ratio 16, Glucose Level 133H, Calcium Level 8.8, Magnesium Level 1.8 Radiology 10/26/17 CXR IMPRESSION: Developing bilateral airspace disease likely due to edema. This may be secondary to congestive heart failure or noncardiogenic cause and clinical correlation is recommended. ECHO - EF 55-60%, Pulmonary artery systolic pressure ~30mmHg Assessment/Plan Assessment/Plan Assessment & Plan Coronary artery disease 10/28 -- patient had stent placement in the mid distal aspect of the LAD yesterday. Her hemoglobin is stable today. Chest pain persist 10/28 - etiology at this point is essentially unclear. Thought perhaps the coronary artery disease was responsible for her discomfort but now that she has stent in she still is reporting chest discomfort. We'll continue with proton pump inhibitor. She may also have component of anxiety. Will check chest x- ray to follow-up her previous airspace findings. Hypoxia- unclear etiology, CTA this week at prior hospitalization negative for PE, possible pneumonia, she is on azithromycin. Monitor closely. RT protocol. CXR in the am. 10/26 - pt has episode of increased tachypnea when she ambulates to the bathroom 10/27 - oxygen by nasal cannula continues. -Patient may need her chest x-ray rechecked Tachycardia- possibly secondary to underlying infection but per her report has had long-term difficulties, may need to consider beta christal. Echocardiogram pending, Cardiology consulted. 10/26 - Pt has continued tachycardia still thought to be possibly secondary to underlying infection. Pt had normal echo. 10/27 - apparently patient is having cardiac catheterization per cardiology today 10/28 - overall the tachycardia has somewhat improved Edema- Check BNP and echo, although swelling is not pitting and BNP was normal a few days ago, so not highly suspicious of CHF related swelling. TSH was normal this week on prior admission as well. 10/28 -The ankle edema is markedly improved today CMV - pt has elevated CMV IgG and IgM, could be possibly new CMV infection. Will also check pt's HIV status and get US of gallbladder to rule out possible hepatic involvement due to increased AST. DVT ppx- SCDs, enoxaparin Clinical Quality Measures DVT/VTE Risk/Contraindication: Risk Factor Score Per Nursin RFS Level Per Nursing on Admit: 2=Moderate ALBARO HUTCHINS MD Oct 28, 2017 07:53
[2017-10-28] MEDS: ASPIRIN 81 MG CHEW (CHILDREN'S ASA) PO SCH (08:04)
[2017-10-28] MEDS: FUROSEMIDE 40 MG (LASIX) TAB PO SCH (08:05)
[2017-10-28] MEDS: inSUlin DETERMIR 1 UNIT/0.01 ML (LEVEMIR) CHARGE PER UNIT SQ SCH ×2 (08:05→20:28)
[2017-10-28] MEDS: CLOPIDOGREL 75 MG (PLAVIX) TABLET PO SCH (08:05)
--- NOTE | 2017-10-28 09:10 | Progress Note-Cardiology ---
Cardiology SOAP Progress Note Subjective: Several hours of chest pain, reportedly severe, continuing through the night to this am. Currently better but still present. Responds only to iv morphine Chronic exertional shortness of breath No groin or leg discomfort Leg swelling seems improved Objective: I&O/Vital Signs 10/27/17 10/28/17 10/28/17 10/28/17 21:34 00:00 00:58 01:00 Temp 98.9 Pulse 114 117 Resp 20 B/P (MAP) 143/89 (107) Pulse Ox 98 95 94 O2 Delivery Nasal Cannula Nasal Cannula Nasal Cannula O2 Flow Rate 2.00 2.00 2.00 10/28/17 10/28/17 10/28/17 04:00 06:22 07:00 Temp 97.1 Pulse 107 109 Resp 20 B/P (MAP) 122/82 (95) Pulse Ox 99 97 O2 Delivery Nasal Cannula Nasal Cannula O2 Flow Rate 2.00 2.00 10/28/17 00:00 Intake Total 3022 ml Output Total 1000 ml Balance 202 ml Weight (Pounds): 169 Weight (Ounces): 8.0 Weight (Calculated Kilograms): 76.966426 Constitutional: AAO x 3, well-developed, well-nourished, other (Appears very comfortable and surfing the net on phone despite report of marked chest pain) Respiratory: No accessory muscle use; lungs clear to percussion, lungs clear to auscultation Cardiovascular: regular rate-rhythm, S1 and S2, systolic murmur (soft DOMINIQUE at card base) Gastrointestional: No tender; soft; No guarding, No rebound; audible bowel sounds Extremities: No clubbing, No cyanosis, No significant edema Neurologic/Psychiatric: oriented x 3, grossly intact, power is 5/5 both on sides Skin: No rash on exposed areas, No ulcerations on exposed areas Results/Procedures: Labs Laboratory Tests 10/27/17 09:17: Glucometer 294H 10/27/17 15:37: Glucometer 129H 10/27/17 20:29: Glucometer 177H 10/28/17 04:55: Glucometer 136H 10/28/17 05:16: White Blood Count 5.8, Red Blood Count 3.81L, Hemoglobin 10.2L, Hematocrit 32L, Mean Corpuscular Volume 83, Mean Corpuscular Hemoglobin 27, Mean Corpuscular Hemoglobin Concent 32, Red Cell Distribution Width 15.5H, Platelet Count 354, Mean Platelet Volume 8.7, Sodium Level 138, Potassium Level 3.9, Chloride Level 100, Carbon Dioxide Level 28, Anion Gap 10, Blood Urea Nitrogen 8, Creatinine 0.51L, Estimat Glomerular Filtration Rate > 60, BUN/Creatinine Ratio 16, Glucose Level 133H, Calcium Level 8.8, Magnesium Level 1.8 Laboratory Tests 10/27/17 05:14 10/28/17 05:16 A/P: Assessment: Chest pain and anxiety of undetermined etiology. Chest pain experienced this am does not appear cardiac CAD. Card cath of 10/27/17 showed 90% mid-distal LAD stenosis that was successfully stented with Alp Xience 2.25x15 mm stent; multiple 50% stenoses in the LAD; 60% stenosis in prox D2; mild to mod diff disease of LCX; 30-40% distal RCA; LVEF 65%; LVEDP 23 mmHg Acute diastolic CHF (although BNP is in the normal range) Pneumonia (based on CT chest of 10/23/17) CT chest angio on 10/23/17 did not show any PE Echocardiogram of 10-25-17 showed LVEF 55-60%. Mild TR. PASP 30 mmHg Bilat leg swelling likely due to venous insufficiency and/or ac sim CHF. Bilat leg venous Duplex of 10/23/17 did not show any DVT Sinus tach DM II Chronic tobacco use Plan: * Etiology of chest pain undetermined. Does not appear cardiac * Repeat pulm CT angio to eval for PE * Repeat ECG * Keep in hosp on tele * Xanax for anxiety (prn) * Monitor labs * We had a detailed discussion regarding cath findings and interventions undertaken on 10/27/17 * Advised to quit tobacco use immediately and completely ALBER PRICE MD [facility] CCDS Oct 28, 2017 09:10
[2017-10-28] MEDS ORDERED: IOHEXOL 350 MG/ML 150 ML (OMNIPAQUE 350) VIAL IV ONE (09:15)
[2017-10-28] MEDS ORDERED: NS 100 ML (IVPB) BAG IV ONE (09:15)
--- NOTE | 2017-10-28 09:58 | Diagnostic Imaging Report ---
PROCEDURE: CT angiography of the chest with contrast. TECHNIQUE: Multiple contiguous axial images were obtained through the chest after uneventful bolus administration of intravenous contrast. Reconstructed CTA MIP acquisitions were also performed. INDICATION: Chest pain. Comparison is made with prior CT angiogram of the chest from 10/23/2017. Evaluation of the pulmonary arterial system is without evidence of thromboembolism. No filling defects are seen within central, lobar or segmental pulmonary arteries. The thoracic aorta is normal in caliber. No dissection is seen. There is no pericardial fluid. There is trace pleural fluid on the left. No significant right-sided effusion is seen. No axillary lymphadenopathy is identified. There continues to be bilateral hilar lymphadenopathy similar to recent CT. There are some small lymph nodes in the mediastinum as well, prevascular space and subcarinal region, similar to prior. Parenchymal evaluation does show some increasing groundglass infiltrates bilateral upper lobes. Streaky bibasilar parenchymal opacities persist and appear worse on today's study in the bilateral lower lobes as well as right middle lobe and lingula. There is some worsening consolidation with air bronchograms in the left lower lobe and to a lesser degree in the posterior right lower lobe. There are some groundglass infiltrates bilateral lobes as well. The upper abdomen is unremarkable. IMPRESSION: 1. No evidence of pulmonary embolism or thoracic aortic dissection. 2. Worsening bilateral groundglass infiltrates as well as streaky bilateral infiltrates or atelectasis with consolidation when compared with examination from 5 days earlier. There is trace pleural fluid present. The hilar and mediastinal lymphadenopathy is stable and remains indeterminate but may be reactive. Continued followup after course of therapy is recommended to confirm clearing. Dictated by: Dictated on workstation # [id number]
--- NOTE | 2017-10-28 10:17 | Diagnostic Imaging Report ---
INDICATION: Chest pain. TECHNIQUE: Two view chest 8:41 AM CORRELATION STUDY: 10/26/2017 FINDINGS: Heart size and mediastinum are joint stable. Vasculature appear slightly diminished from prior study. Consolidated airspace disease about the mid and lower lung wilson persisting, does appear to be perhaps very slightly improved. Visualized osseous structures are unremarkable. IMPRESSION: 1. Bilateral airspace disease in the mid and lower lung wilson perhaps slightly improved. Indeterminate versus edema versus consolidation of pneumonia. Vasculature appears slightly diminished and improved as well. Dictated by: Dictated on workstation # [id number]
[2017-10-28] MEDS: LEVOFLOXACIN 750 MG/150 ML IV 150 ML IV SCH (12:21)
[2017-10-28] MEDS ORDERED: ACETAMINOPHEN 325 MG TABLET PO PRN (18:45)
[2017-10-28] MEDS: ATORVASTATIN 40 MG (LIPITOR) TABLET PO SCH (20:27)
[2017-10-28] MEDS: ENOXAPARIN 40 MG/0.4 ML (LOVENOX) SYR SC SCH (20:27)
[2017-10-29] VITALS: BP 98/56
[2017-10-29] MEDS: RT-ALBUTEROL/IPRATROPIUM 3 ML (DUONEB) VIAL INH SCH ×2 (02:01→10:04)
[2017-10-29 04:13] VITALS: BP 121/69
[2017-10-29] MEDS: KCL 20 MEQ TAB (K-DUR) PO SCH (05:30)
[2017-10-29] MEDS: PANTOPRAZOLE 40 MG (PROTONIX) TAB PO SCH (05:30)
[2017-10-29] MEDS: inSUlin ASPART (NovoLOG) 1 UNIT/0.01 ML (CHARGE PER UNIT) SC SCH ×2 (05:31→11:08)
[2017-10-29 08:00] VITALS: BP 122/78
[2017-10-29] MEDS: inSUlin DETERMIR 1 UNIT/0.01 ML (LEVEMIR) CHARGE PER UNIT SQ SCH (08:54)
[2017-10-29] MEDS: ASPIRIN 81 MG CHEW (CHILDREN'S ASA) PO SCH (08:54)
[2017-10-29] MEDS: CLOPIDOGREL 75 MG (PLAVIX) TABLET PO SCH (08:54)
[2017-10-29] MEDS: FUROSEMIDE 40 MG (LASIX) TAB PO SCH (08:55)
--- NOTE | 2017-10-29 09:19 | Progress Note-Cardiology ---
Cardiology SOAP Progress Note Subjective: C/O tenderness at right groin site (cardiac cath). No c/o CP this morning. Feels breathing is better. No c/o palpitations. Significant other at the bedside. Objective: I&O/Vital Signs 10/29/17 10/29/17 10/29/17 10/29/17 04:13 07:00 08:00 08:52 Temp 99.6 97.4 Pulse 105 102 105 Resp 20 16 B/P (MAP) 121/69 (86) 122/78 (93) Pulse Ox 97 94 O2 Delivery Nasal Cannula Nasal Cannula Nasal Cannula O2 Flow Rate 2.00 2.00 2.00 10/29/17 10/29/17 10/29/17 10:04 12:00 13:00 Temp 98.0 Pulse 115 123 Resp 18 B/P (MAP) 117/68 (84) Pulse Ox 92 91 O2 Delivery Nasal Cannula Nasal Cannula O2 Flow Rate 2.00 2.00 10/29/17 00:00 Intake Total 1890 ml Output Total 4300 ml Balance -2410 ml Weight (Pounds): 169 Weight (Ounces): 8.0 Weight (Calculated Kilograms): 76.254008 Constitutional: AAO x 3, well-developed, well-nourished, other (Appears very comfortable and surfing the net on phone despite report of marked chest pain) Respiratory: No accessory muscle use; lungs clear to percussion, lungs clear to auscultation Cardiovascular: regular rate-rhythm, S1 and S2, systolic murmur (soft DOMINIQUE at card base) Gastrointestional: No tender; soft; No guarding, No rebound; audible bowel sounds Extremities: No clubbing, No cyanosis, No significant edema Neurologic/Psychiatric: oriented x 3, grossly intact, power is 5/5 both on sides Skin: No rash on exposed areas, No ulcerations on exposed areas Results/Procedures: Labs Laboratory Tests 10/28/17 19:50: Glucometer 272H 10/29/17 05:02: Glucometer 311H 10/29/17 11:07: Glucometer 251H Microbiology 10/27/17 MRSA Screen - Final, Complete No growth A/P: Assessment: Pneumonia (based on CT chest of 10/23/[address] chest of 10/28/17) Chest pain and anxiety of undetermined etiology. Chest pain experienced yesterday am does not appear cardiac - no further c/o CAD. Card cath of 10/27/17 showed 90% mid-distal LAD stenosis that was successfully stented with Alp Xience 2.25x15 mm stent; multiple 50% stenoses in the LAD; 60% stenosis in prox D2; mild to mod diff disease of LCX; 30-40% distal RCA; LVEF 65%; LVEDP 23 mmHg Acute diastolic CHF (although BNP is in the normal range) CT chest angio on 10/23/17 did not show any PE Echocardiogram of 10-25-17 showed LVEF 55-60%. Mild TR. PASP 30 mmHg Bilat leg swelling likely due to venous insufficiency and/or ac sim CHF. Bilat leg venous Duplex of 10/23/17 did not show any DVT DM II Chronic tobacco use - cessation advised Plan: * Etiology of chest pain yesterday undetermined. Does not appear cardiac - no further c/o * CT of the chest on 10-28-17 shows no evidence of PE or aortic dissection * Xanax for anxiety (prn) * Monitor labs * Dr. Benoit had a detailed discussion regarding cath findings and interventions undertaken on 10/27/17 * Advised to quit tobacco use immediately and completely Physician Assessment Physician Assessment No cp or palp or syncope or shortness of breath at rest today Lungs: diminished air entry at both bases Cor: reg Ext: no c/c; mild edema A&R * As documented in our note above that I updated in italics and as noted below * We recommend full treatment of pneumonia * Ok to d/c from card standpoint * We recommend med compliance, including ASA and Plavix. She understands and states she will do so * Advised to quit smoking immediately and completely * Advised outpt f/u RALPH BLANCO HISTOLOGY AIDE Oct 29, 2017 09:19 ALBER BENOIT MD FACP FAC CCDS Oct 29, 2017 15:04
[2017-10-29] MEDS ORDERED: METO-387 PO (09:23)
[2017-10-29] MEDS ORDERED: ASPI-999 PO (09:23)
[2017-10-29] MEDS ORDERED: CLOP75TA28 PO (09:23)
[2017-10-29] MEDS ORDERED: POTA20TA8 PO (09:23)
[2017-10-29] MEDS ORDERED: FURO40TA4 PO (09:23)
[2017-10-29] MEDS: LEVOFLOXACIN 750 MG/150 ML IV 150 ML IV SCH (11:08)
[2017-10-29] MEDS ORDERED: METO-370 PO (11:31)
[2017-10-29 12:00] VITALS: BP 117/68
--- NOTE | 2017-10-29 13:49 | Discharge Summary ---
Diagnosis/Chief Complaint Date of Admission Oct 25, 2017 at 15:59 Date of Discharge 10/29/2017 Admission Diagnosis Admission Diagnosis CAD with stent placement Suspected PNA Hypoxia Edema CMV Discharge Diagnosis See Above Chief Complaint/HPI Chief Complaint/HPI 37 yo female who was recently discharged with suspected pneumonia and abnormal blood count and leg swelling, presented to clinic today for follow-up and was noted to have increased work of breathing with desaturation to the 80s with walking and tachycardia in the 120s. She states she does okay at times but has "fits" of difficulty breathing and racing heart and gets very anxious and tearful. She has decreased exercise tolerance and had increased swelling in her legs as soon as she left the hospital. Discharge Summary-Simple/Stand Consultations Dr Benoit: Cardiology Discharge Physical Examination Allergies: Coded Allergies: coconut (Verified Allergy, Severe, anaphylactic reaction, 07/11/17) ketorolac (Unverified Allergy, Unknown, 08/19/15) Vitals & I&Os Vital Sign - Last 12Hours Date Time Temp Pulse Resp B/P (MAP) Pulse Ox O2 Delivery O2 Flow Rate FiO2 10/29/17 12:00 98.0 115 18 117/68 (84) 91 Nasal Cannula 2.00 10/28/17 19:21 21 Intake and Output 10/29/17 00:00 Intake Total 1890 ml Output Total 4300 ml Balance -2410 ml General Appearance: Alert, Oriented X3, Cooperative, No Acute Distress HEENT: Mucous Memb Moist/[place] Respiratory: Clear to Auscultation, Normal Air Movement Cardiovascular: Regular Rate, No Murmurs Abdominal: Normal Bowel Sounds, Soft, No Tenderness, No Hepatosplenomegaly, No Masses Extremities: No Edema, No Tenderness/Swelling Skin: No Rashes, No Breakdown Neuro: Normal Speech, Strength at 5/5 X4 Ext, Sensation Intact, Cranial Nerves 3-12 NL Psych/Mental Status: Mental Status NL, Mood NL Hospital Course See final discharge diagnosis. Radiology Reviewed 10/26/17 CXR IMPRESSION: Developing bilateral airspace disease likely due to edema. This may be secondary to congestive heart failure or noncardiogenic cause and clinical correlation is recommended. ECHO - EF 55-60%, Pulmonary artery systolic pressure ~30mmHg Discussion & Recommendations 37 yo F that presented with chest pain that was found to have 90% stenosis of LAD with stent placement CAD with stent placement: Seen by cardiology Dr Benoit during admission and had cath with stent placement in LAD. Started on maximum medication treatment with ACEI, BB and ASA. Will have close follow up with cardiology. Suspected PNA: Sent home to complete course of PO antibiotics due to prolonged oxygen dependence with hypoxia while inpatient. Hypoxia: Able to titrate off oxygen during hospitalizations. Edema: Normal BNP and Echo during admission. CMV Tobacco Use: Discussed the importance of cessation Discharge Condition at discharge Stable Instructions to patient/family Please see electronic discharge instructions given to patient. Discharge Medications Reviewed and agree with Discharge Medication list on patient's Discharge Instruction sheet Clinical Quality Measures DVT/VTE Risk/Contraindication: Risk Factor Score Per Nursin RFS Level Per Nursing on Admit: 2=Moderate Copy Copies To 1: Raghu BROOKS HOLLY R MD Oct 29, 2017 13:49
[2017-10-29] MEDS ORDERED: CEFD300C3 PO (13:57)
[2017-10-29] MEDS ORDERED: METF10002 PO (13:57)
[2017-10-29] MEDS ORDERED: INSU100V5 SQ (13:57)
[2017-10-29] MEDS ORDERED: INSU100I23 SQ (13:57)
--- OUTSIDE RECORDS SUMMARY | 2017-10-30 15:51 | XMS REPORT | Clinical Summary ---
Author Author [facility] Organization [facility] Address Unknown Phone Unavailable Care Team Providers Care Career Based Intervention Coordinator Name Role Phone Alfred Diaz MD PCP Unavailable Source Comments Some departments are not documenting in the electronic medical record. If you do not see the information that you expected, contact Release of Information in the Health Information Management department at [phone] for further assistance in locating additional records.[facility] Allergies Not on File Current Medications [...]
== END 2017-10-29 14:55 | disposition home or self-care (01) | DRG 246 ==
LOC: EDSTATUS 15:46 → 4TH 15:59 → INTOOBSV 15:59 → UNDOADMOB 15:59 → OBSVTOIN 15:59 → UNDODISIN 10-29 14:55
PROVIDERS: ADMIT Family Medicine; ATTEND Family Medicine
PROC: 027034Z Dilation of Coronary Artery, One Artery with Drug-eluting Intraluminal Device, Percutaneous Approach (ICD-10-PCS; principal; 2017-10-27)
PROC: 4A023N7 Measurement of Cardiac Sampling and Pressure, Left Heart, Percutaneous Approach (ICD-10-PCS; 2017-10-27)
PROC: B2111ZZ Fluoroscopy of Multiple Coronary Arteries using Low Osmolar Contrast (ICD-10-PCS; 2017-10-27)
PROC: B2151ZZ Fluoroscopy of Left Heart using Low Osmolar Contrast (ICD-10-PCS; 2017-10-27)
DX: I25.110 Atherosclerotic heart disease of native coronary artery with unstable angina pectoris (principal); I11.0 Hypertensive heart disease with heart failure; I50.31 Acute diastolic (congestive) heart failure; J18.9 Pneumonia, unspecified organism; B25.9 Cytomegaloviral disease, unspecified; R09.02 Hypoxemia; I87.2 Venous insufficiency (chronic) (peripheral); R07.9 Chest pain, unspecified; F41.9 Anxiety disorder, unspecified; I07.1 Rheumatic tricuspid insufficiency; E11.9 Type 2 diabetes mellitus without complications; R00.0 Tachycardia, unspecified; F17.290 Nicotine dependence, other tobacco product, uncomplicated; E78.5 Hyperlipidemia, unspecified; Z79.4 Long term (current) use of insulin
CPT/HCPCS: 36415; 71046; 71275; 76705; 80048; 80053; 80061; 82962; 83735; 83880; 84443; 85025; 85027; 86703; 86780; 87081; 93005; 93306; 93458; 94640; 94664; 94760

== ENCOUNTER 2017-11-16 23:50 | Observation (INO) | payer SELFPAY ==
[~2017-11-16] VITALS: Ht 157.5 cm; Wt 68.0 kg
[~2017-11-16 23:50] MED LIST changes: +ASPI-999 PO; +CEFD300C3 PO; +CLOP75TA28 PO; +FURO40TA4 PO; +METO-370 PO; +METO-387 PO; +POTA20TA8 PO
[2017-11-17] VITALS (15 sets, daily range): BP systolic 100–137; BP diastolic 67–97
[2017-11-17] MEDS ORDERED: ASPIRIN 81 MG CHEW (CHILDREN'S ASA) PO ONE (00:15)
--- NOTE | 2017-11-17 00:15 | ED Chest Pain ---
General Chief Complaint: Chest Pain Stated Complaint: CP,SOB Source: patient, other Exam Limitations: no limitations History of Present Illness Date Seen by Provider: Nov 17, 2017 Time Seen by Provider: 00:02 Initial Comments Patient presents to ER by private conveyance with a chief complaint that at noon today when she was in court she began to have a severe, sharp 10 out of 10 Chest Pain C[facility] of her chest that did not radiate and felt similar to the same pain she had prior to having a heart catheter 2 weeks ago discovering a lesion in her LAD requiring balloon angioplasty and a stent. She says she's been taking all the medications precisely as prescribed and following up with her doctor at [facility] as well as Dr. Patel, cardiology. She denies methamphetamine or cocaine use. She says she is slowing down on her smoking and is down to about a quarter pack per day. She does have diabetes and takes Levemir and Humalog. She is not having any shortness of breath cough, sweats, nausea. The patient did not take any nitroglycerin or extra aspirin. She does not give any reason for why it took her 12 hours to present to the ER. Allergies and Home Medications Allergies Coded Allergies: coconut (Verified Allergy, Severe, anaphylactic reaction, 07/11/17) ketorolac (Unverified Allergy, Unknown, 08/19/15) Home Medications Albuterol Sulfate 18 Gm Hfa.aer.ad, 2 PUFF IH Q4H PRN for SHORTNESS OF BREATH Prescribed by: ERNESTO MEADOWS on 10/24/17 1406 Aspirin 81 Mg Tab.chew, 81 MG PO DAILY Prescribed by: RALPH BLANCO on 10/29/17 09 Atorvastatin Calcium 80 Mg Tablet, 80 MG PO DAILY, (Reported) LAST FILLED #30 07-11-17 Cefdinir 300 Mg Capsule, 300 MG PO BID Prescribed by: BRI THOMAS on 10/29/17 135 Clopidogrel Bisulfate 75 Mg Tablet, 75 MG PO DAILY Prescribed by: RALPH BLANCO on 10/29/17 09 Furosemide 40 Mg Tablet, 40 MG PO DAILY Prescribed by: RALPH BLANCO on 10/29/17 09 Insulin Determir 1,000 Units/10 Ml Soln, 15 UNITS SQ BID Prescribed by: BRI THOMAS on 10/29/17 135 Insulin Lispro 100 Unit/1 Ml Insuln.pen, 10 UNIT SQ TIDAC Prescribed by: BRI THOMAS on 10/29/17 1357 Metformin HCl 1,000 Mg Tablet, 1,000 MG PO BID Do not start until Wed due to recent cath Prescribed by: BRI THOMAS on 10/29/17 1357 Metoprolol Succinate 50 Mg Tab.er.24h, 50 MG PO BID Prescribed by: RALPH BLANCO on 10/29/17 1131 Potassium Chloride 20 Meq Tab.er.prt, 20 MEQ PO DAILY@0700 Prescribed by: RALPH BLANCO on 10/29/17 0923 Patient Home Medication List Home Medication List Reviewed: Yes Review of Systems Constitutional: No chills, No diaphoresis, No fever EENTM: No Blurred Vision, No Double Vision Respiratory: Denies Shortness of Air Cardiovascular: See HPI, Chest Pain; Denies Irregular Heart Rate, Denies Lightheadedness Gastrointestinal: Denies Abdomen Distended, Denies Abdominal Pain, Denies Constipated, Denies Diarrhea, Denies Nausea Genitourinary: Denies Burning, Denies Discharge Musculoskeletal: No back pain, No joint pain Skin: No pruritus, No rash Psychiatric/Neurological: Denies Headache, Denies Numbness Past Zvhaptw-Dezpmr-Imztgz Hx Patient Social History Alcohol Use: Denies Use Recreational Drug Use: No Smoking Status: Current Everyday Smoker Type Used: Cigars, Cigarettes (0.25 ppd) 2nd Hand Smoke Exposure: Yes Recent Foreign Travel: No Contact w/Someone Who Travel: No Recent Hopitalizations: No Immunizations Up To Date PED Vaccines UTD: No Date of Pneumonia Vaccine: September 09, 2016 Seasonal Allergies Seasonal Allergies: No Past Medical History Surgeries: Yes Breast, Section, Tubal Ligation Respiratory: No Cardiac: Yes Hypertension Neurological: Yes Neuropathy Reproductive Disorders: No Female Reproductive Disorders: Ovarian Cyst Sexually Transmitted Disease: No HIV/AIDS: No Genitourinary: No Gastrointestinal: No Musculoskeletal: No Endocrine: Yes Diabetes, Insulin dep HEENT: No Cancer: No Psychosocial: No Integumentary: No Blood Disorders: No Adverse Reaction/Blood Tranf: No Family Medical History Diabetes mellitus 19 FATHER 19 MOTHER Other Conditions/Hx Physical Exam Vital Signs Capillary Refill : Height, Weight, BMI Height: 5'2.00" Weight: 169lbs. 8.0oz. [id number]; 31.0 BMI Method:Stated General Appearance: No Apparent Distress, WD/WN HEENT: PERRL/EOMI, Pharynx Normal, Moist Mucous Membranes Neck: Full Range of Motion, Normal Inspection Respiratory: Chest Non Tender, Lungs Clear, Normal Breath Sounds, No Accessory Muscle Use, No Respiratory Distress Cardiovascular: Regular Rate, Rhythm, No Edema, Normal Peripheral Pulses, Tachycardia (100-110) Gastrointestinal: Normal Bowel Sounds, Non Tender, Soft Extremity: Normal Capillary Refill, Normal Inspection, Non Tender, No Calf Tenderness, No Pedal Edema Neurologic/Psychiatric: Alert, Oriented x3 Skin: Normal Color Progress/Results/Core Measures Results/Orders Lab Results Laboratory Tests Test 11/17/17 00:00 11/17/17 00:40 Range/Units White Blood Count 6.8 4.3-11.0 10^3/uL Red Blood Count 4.72 4.35-5.85 10^6/uL Hemoglobin 13.2 11.5-16.0 G/DL Hematocrit 37 35-52 % Mean Corpuscular Volume 78 L 80-99 FL Mean Corpuscular Hemoglobin 28 25-34 PG Mean Corpuscular Hemoglobin Concent 36 32-36 G/DL Red Cell Distribution Width 14.9 H 10.0-14.5 % Platelet Count 400 130-400 10^3/uL Mean Platelet Volume 9.3 7.4-10.4 FL Neutrophils (%) (Auto) 46 42-75 % Lymphocytes (%) (Auto) 42 12-44 % Monocytes (%) (Auto) 10 0-12 % Eosinophils (%) (Auto) 3 0-10 % Basophils (%) (Auto) 0 0-10 % Neutrophils # (Auto) 3.1 1.8-7.8 X 10^3 Lymphocytes # (Auto) 2.8 1.0-4.0 X 10^3 Monocytes # (Auto) 0.7 0.0-1.0 X 10^3 Eosinophils # (Auto) 0.2 0.0-0.3 10^3/uL Basophils # (Auto) 0.0 0.0-0.1 10^3/uL Prothrombin Time 11.8 L 12.2-14.7 SEC INR Comment 0.9 0.8-1.4 Activated Partial Thromboplast Time 31 24-35 SEC Sodium Level 129 L 135-145 MMOL/L Potassium Level 4.2 3.6-5.0 MMOL/L Chloride Level 96 L 98-107 MMOL/L Carbon Dioxide Level 15 L 21-32 MMOL/L Anion Gap 18 H 5-14 MMOL/L Blood Urea Nitrogen 11 7-18 MG/DL Creatinine 1.11 0.60-1.30 MG/DL Estimat Glomerular Filtration Rate 56 BUN/Creatinine Ratio 10 Glucose Level 625 *H 70-105 MG/DL Calcium Level 9.8 8.5-10.1 MG/DL Magnesium Level 3.8 H 1.8-2.4 MG/DL Total Bilirubin 0.4 0.1-1.0 MG/DL Aspartate Amino Transf (AST/SGOT) 22 5-34 U/L Alanine Aminotransferase (ALT/SGPT) < 30 0-55 U/L Alkaline Phosphatase 118 40-136 U/L Myoglobin 15.5 10.0-92.0 NG/ML Troponin I < 0.30 <0.30 NG/ML Total Protein 10.5 H 6.4-8.2 GM/DL Albumin 4.0 3.2-4.5 GM/DL Urine Color YELLOW Urine Clarity CLEAR Urine pH 6.5 5-9 Urine Specific [place] 1.010 L 1.016-1.022 Urine Protein 1+ H NEGATIVE Urine Glucose (UA) 4+ H NEGATIVE Urine Ketones NEGATIVE NEGATIVE Urine Nitrite NEGATIVE NEGATIVE Urine Bilirubin NEGATIVE NEGATIVE Urine Urobilinogen NORMAL NORMAL MG/DL Urine Leukocyte Esterase NEGATIVE NEGATIVE Urine RBC (Auto) NEGATIVE NEGATIVE Urine RBC NONE /HPF Urine WBC NONE /HPF Urine Squamous Epithelial Cells 2-5 /HPF Urine Crystals NONE /LPF Urine Bacteria NEGATIVE /HPF Urine Casts NONE /LPF Urine Mucus NEGATIVE /LPF Urine Culture Indicated NO Urine Opiates Screen NEGATIVE NEGATIVE Urine Oxycodone Screen NEGATIVE NEGATIVE Urine Methadone Screen NEGATIVE NEGATIVE Urine Propoxyphene Screen NEGATIVE NEGATIVE Urine Barbiturates Screen NEGATIVE NEGATIVE Ur Tricyclic Antidepressants Screen NEGATIVE NEGATIVE Urine Phencyclidine Screen NEGATIVE NEGATIVE Urine Amphetamines Screen NEGATIVE NEGATIVE Urine Methamphetamines Screen NEGATIVE NEGATIVE Urine Benzodiazepines Screen NEGATIVE NEGATIVE Urine Cocaine Screen NEGATIVE NEGATIVE Urine Cannabinoids Screen NEGATIVE NEGATIVE My Orders Orders - JAMMIE,ALBERTINA J Cbc With Automated Diff (11/17/17 00:07) Magnesium (11/17/17 00:07) Chest 1 View, Ap/Pa Only (11/17/17 00:07) Ekg Tracing (11/17/17 00:07) Cardiac Profile 1 (11/17/17 00:07) Comprehensive Metabolic Panel (11/17/17 00:07) Myoglobin Serum (11/17/17 00:07) Protime With Inr (11/17/17 00:07) Partial Thromboplastin Time (11/17/17 00:07) O2 (11/17/17 00:07) Monitor-Rhythm Ecg Trace Only (11/17/17 00:07) Lipid Panel (11/18/17 06:00) Aspirin Chewable Tablet (Baby Aspirin Ch (11/17/17 00:15) Saline Lock/Iv-Start (11/17/17 00:07) Nitroglycerin 0.4 Mg Btl 25's (Nitrostat (11/17/17 00:30) Morphine Injection (Morphine Injection (11/17/17 00:30) Ua Culture If Indicated (11/17/17 00:37) Drug Screen Stat (Urine) (11/17/17 00:37) Insulin Aspart (Novolog) (Novolog (Charg (11/17/17 00:45) Accucheck Stat ONCE (11/17/17 01:00) Urine Bedside (11/17/17 00:52) Medications Given in ED Current Medications Medications Dose Ordered Sig/Tomasz Route Start Time Stop Time Status Last Admin Dose Admin Aspirin 324 mg ONCE ONCE PO 11/17/17 00:15 11/17/17 00:16 DC 11/17/17 00:16 324 MG Insulin Aspart 20 unit ONCE ONCE SC 11/17/17 00:45 11/17/17 00:46 DC 11/17/17 00:48 20 UNIT Morphine Sulfate 4 mg ONCE ONCE IVP 11/17/17 00:30 11/17/17 00:31 DC 11/17/17 00:40 4 MG Progress Progress Note #1: Time: 00:13 Progress Note Card cath of 10/27/17 showed 90% mid-distal LAD stenosis that was successfully stented with Alp Xience 2.25x15 mm stent; multiple 50% stenoses in the LAD; 60% stenosis in prox D2; mild to mod diff disease of LCX; 30-40% distal RCA; LVEF 65 %; LVEDP 23 mmHg We'll obtain a cardiac chest 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 She does not appear to be acutely in fluid overload heart failure. Lungs are clear and she does not have any edema, JVD etc. Her recent heart catheter and discovery of significant disease in the LAD as well as her other coronaries makes this very concerning for a cardiac origin pain. It's concerning that she doesn't give any explanation for why it took her 12 hours to present to the ER after severe 10 out of 10 chest pain that occurs just 2 weeks after heart catheter and stent was placed. Progress Note #2: Time: 00:39 Progress Note Blood sugar on the CMP came back at 625. Return to go ahead and give her her evening dose of insulin 20 mg Humalog and obtain a urine looking for ketones. We 'll go ahead and obtain a urine drug screen while we have it. Plan to recheck a Accu-Chek in about 30-40 minutes. Progress Note #3: Time: 01:23 Progress Note Patient's blood sugar came down from 625-518 with 20 units of Humalog sore and give her another 20 as well as her Levemir. Initial ECG Impression Date: Nov 16, 2017 Initial ECG Impression Time: 23:59 Initial ECG Rate: 102 Initial ECG Rhythm: S.Tach Initial ECG Intervals: Normal Initial ECG Impression: Normal, Nonspecific Changes Initial ECG Comparisson: Unchanged Comment No acute ST elevation or depression. Diagnostic Imaging Diagonstic Imaging: Xray Plain Films/CT/US/NM/MRI: chest (1v) Comments No acute cardiopulmonary processes noted. No infiltrates, widened mediastinum, cardiomegaly, soft tissue or osseous abnormalities acutely noted. Reviewed: Reviewed by Me Departure Communication (Admissions) Time/Spoke to Admitting Phy: 01:17 Dr. Thomas: Discussed case lab EKG imaging and she is okay to observation. Time/Spoke to Consulting Phy: 01:15 Discussed case lab imaging EKG findings with Dr. Hernandez and he says it's okay to admit her and do a cardiac workup. Impression Primary Impression: Chest pain Qualified Codes: R07.9 - Chest pain, unspecified Additional Impression: Hyperglycemia Disposition: ADMITTED INPATIENT Condition: Stable Admissions Decision to Admit Reason: Admit from ER (General) Decision to Admit/Date: Nov 17, 2017 Time/Decision to Admit Time: 01:19 Departure-Patient Inst. Referrals: [facility] [place]) Primary Care Physician Copy Copies To 1: HANG FELIPE DO; ALBER PRICE MD FACP FAC CCDS ALBERTINA AGUDELO Nov 17, 2017 00:15
[2017-11-17 00:16] LABS: BASOPHILS % (AUTO) 0 % (0-10); EOSINOPHILS # (AUTO) 0.2 10^3/uL (0.0-0.3); EOSINOPHILS % (AUTO) 3 % (0-10); HEMATOCRIT 37 % (35-52); HEMOGLOBIN 13.2 G/DL (11.5-16.0); LYMPHOCYTES # (AUTO) 2.8 X 10^3 (1.0-4.0); LYMPHOCYTES % (AUTO) 42 % (12-44); MEAN CORPUSCULAR HEMOGLOBIN 28 PG (25-34); MEAN CORPUSCULAR HGB CONC 36 G/DL (32-36); MEAN CORPUSCULAR VOLUME 78 FL (80-99); MEAN PLATELET VOLUME 9.3 FL (7.4-10.4); MONOCYTES # (AUTO) 0.7 X 10^3 (0.0-1.0); MONOCYTES % (AUTO) 10 % (0-12); NEUTROPHILS # (AUTO) 3.1 X 10^3 (1.8-7.8); NEUTROPHILS % (AUTO) 46 % (42-75); PLATELET COUNT 400 10^3/uL (130-400); RED BLOOD COUNT 4.72 10^6/uL (4.35-5.85); RED CELL DISTRIBUTION WIDTH 14.9 % (10.0-14.5); WHITE BLOOD COUNT 6.8 10^3/uL (4.3-11.0)
[2017-11-17 00:21] LABS: INR 0.9 (0.8-1.4); PROTHROMBIN TIME PATIENT 11.8 SEC (12.2-14.7)
[2017-11-17 00:30] LABS: ALKALINE PHOSPHATASE 118 U/L (40-136); BILIRUBIN,TOTAL 0.4 MG/DL (0.1-1.0); BUN/CREATININE RATIO 10; CALCIUM 9.8 MG/DL (8.5-10.1); CARBON DIOXIDE 15 MMOL/L (21-32); CHLORIDE 96 MMOL/L (98-107); CREATININE SERUM 1.11 MG/DL (0.60-1.30); GFR ESTIMATED 56; MAGNESIUM 3.8 MG/DL (1.8-2.4); POTASSIUM 4.2 MMOL/L (3.6-5.0); SODIUM 129 MMOL/L (135-145); TOTAL PROTEIN 10.5 GM/DL (6.4-8.2)
[2017-11-17] MEDS ORDERED: NITROGLYCERIN 0.4 MG SL TABS BTL 25'S SL PRN ×2 (00:30→05:15)
[2017-11-17] MEDS ORDERED: morphine INJ 10 MG/ML 1ML (SYR OR VIAL) IVP ONE (00:30)
[2017-11-17 00:36] LABS: GLUCOSE 625 MG/DL (70-105)
[2017-11-17 00:37] LABS: MYOGLOBIN SERUM 15.5 NG/ML (10.0-92.0)
[2017-11-17] MEDS ORDERED: inSUlin ASPART (NovoLOG) 1 UNIT/0.01 ML (CHARGE PER UNIT) SC ONE ×2 (00:45→01:30)
[2017-11-17 00:51] LABS: ALANINE AMINOTRANSFERASE < 30 U/L (0-55)
[2017-11-17 00:52] LABS: BILIRUBIN,URINE NEGATIVE (NEGATIVE); CLARITY,URINE CLEAR; COLOR,URINE YELLOW; GLUCOSE, URINE (UA) 4+ (NEGATIVE); KETONES,URINE NEGATIVE (NEGATIVE); LEUKOCYTE ESTERASE ,URINE NEGATIVE (NEGATIVE); NITRITE,URINE NEGATIVE (NEGATIVE); PH,URINE 6.5 (5-9); PROTEIN,URINE 1+ (NEGATIVE); UROBILINOGEN,URINE NORMAL (NORMAL)
[2017-11-17 01:00] LABS: BACTERIA,URINE NEGATIVE /HPF
[2017-11-17 01:03] LABS: AMPHETAMINE SCREEN, URINE NEGATIVE (NEGATIVE); BARBITURATE SCREEN URINE NEGATIVE (NEGATIVE); BENZODIAZEPINES SCREEN URINE NEGATIVE (NEGATIVE); CANNABINOID SCREEN, URINE NEGATIVE (NEGATIVE); COCAINE SCREEN URINE NEGATIVE (NEGATIVE); METHADONE STAT NEGATIVE (NEGATIVE); METHAMPHETAMINE SCREEN URINE S NEGATIVE (NEGATIVE); OPIATE SCREEN URINE NEGATIVE (NEGATIVE); OXYCODONE STAT NEGATIVE (NEGATIVE); PROPOXYPHENE STAT NEGATIVE (NEGATIVE); TRICYCLIC ANTIDEPRESSANTS SCRE NEGATIVE (NEGATIVE)
[2017-11-17] MEDS ORDERED: inSUlin DETERMIR 1 UNIT/0.01 ML (LEVEMIR) CHARGE PER UNIT SQ ONE (01:30)
[2017-11-17] MEDS ORDERED: NITRO DRIP 25000 MCG/D5W 0 ML IV ONE (02:49)
[2017-11-17] MEDS ORDERED: morphine INJ 4 MG/ML 1 ML (VIAL/SYRINGE) ONE (03:09)
[2017-11-17] MEDS ORDERED: morphine INJ 4 MG/ML 1 ML (VIAL/SYRINGE) IVP PRN (03:15)
[2017-11-17] MEDS ORDERED: morphine INJ 4 MG/ML 1 ML (VIAL/SYRINGE) IV PRN (05:15)
[2017-11-17] MEDS ORDERED: ACETAMINOPHEN 500 MG TAB (TYLENOL) PO PRN (05:15)
[2017-11-17] MEDS ORDERED: ONDANSETRON 4 MG/2 ML (SDV) Z0FRAN IV PRN (05:15)
[2017-11-17] MEDS ORDERED: CATHETER FLUSH 10 ML SYR IV PRN (05:30)
[2017-11-17 05:54] LABS: BASOPHILS % (AUTO) 0 % (0-10); EOSINOPHILS # (AUTO) 0.3 10^3/uL (0.0-0.3); EOSINOPHILS % (AUTO) 4 % (0-10); HEMATOCRIT 36 % (35-52); HEMOGLOBIN 12.6 G/DL (11.5-16.0); LYMPHOCYTES # (AUTO) 3.4 X 10^3 (1.0-4.0); LYMPHOCYTES % (AUTO) 46 % (12-44); MEAN CORPUSCULAR HEMOGLOBIN 28 PG (25-34); MEAN CORPUSCULAR HGB CONC 35 G/DL (32-36); MEAN CORPUSCULAR VOLUME 78 FL (80-99); MEAN PLATELET VOLUME 9.1 FL (7.4-10.4); MONOCYTES # (AUTO) 0.6 X 10^3 (0.0-1.0); MONOCYTES % (AUTO) 8 % (0-12); NEUTROPHILS # (AUTO) 3.1 X 10^3 (1.8-7.8); NEUTROPHILS % (AUTO) 41 % (42-75); PLATELET COUNT 371 10^3/uL (130-400); RED BLOOD COUNT 4.59 10^6/uL (4.35-5.85); WHITE BLOOD COUNT 7.4 10^3/uL (4.3-11.0)
[2017-11-17] MEDS ORDERED: inSUlin ASPART (NovoLOG) 1 UNIT/0.01 ML (CHARGE PER UNIT) SC SCH ×2 (06:00)
[2017-11-17] MEDS ORDERED: CATHETER FLUSH 10 ML SYR IV SCH (06:00)
[2017-11-17 06:12] LABS: BUN/CREATININE RATIO 19; CALCIUM 9.8 MG/DL (8.5-10.1); CARBON DIOXIDE 16 MMOL/L (21-32); CHLORIDE 102 MMOL/L (98-107); CREATININE SERUM 0.64 MG/DL (0.60-1.30); GFR ESTIMATED > 60; POTASSIUM 4.1 MMOL/L (3.6-5.0); SODIUM 136 MMOL/L (135-145)
--- NOTE | 2017-11-17 06:12 | History & Physicial (CHS) ---
HPI History of Present Illness: 37-year-old female presents to emergency department during the late evening of November 16, 2017 with chest pain. Apparently the chest pain was described as severe based upon emergency room description of 10 out of 10. She was recently seen 2 weeks ago and underwent cardiac catheterization where she was found to have lesion of the LAD. She did have stent placement at that time. She is a known cigarette smoker as well as diabetic. She does take Levemir as well as Humalog. Source: patient Exam Limitations: clinical condition Date seen by provider: Nov 17, 2017 Time Seen by Provider: 08:00 Attending Physician Zachariah Hutchins MD PCP Center/[facility] [place],[facility], [facility] Consult Date of Admission Nov 17, 2017 at 01:25 Home Medications Home Medications Reviewed patient Home Medication Reconciliation performed by pharmacy medication reconciliations camera repair technician and/or nursing. Patients Allergies have been reviewed. Allergies Coded Allergies: coconut (Verified Allergy, Severe, anaphylactic reaction, 07/11/17) ketorolac (Unverified Allergy, Unknown, 08/19/15) NOM-Woxhhr-Dlxcvc Hx Patient Social History Marrital Status: cohabiting Alcohol Use: Denies Use Recreational Drug Use: No Smoking Status: Current Everyday Smoker Type Used: Cigarettes 2nd Hand Smoke Exposure: Yes Recent Foreign Travel: No Contact w/other who traveled: No Recent Hopitalizations: No Recent Infectious Disease Expo: No Physical Abuse Screen: No Sexual Abuse: No Immunizations Up To Date Tetanus Booster (TDap): Unknown Date of Pneumonia Vaccine: September 09, 2016 Past Medical History Diabetes type 2 HTN HLD Surgical: x 3 I&D of left breast cyst Back surgery - discectomy Family Medical History Significant Family History: Other Conditions/Hx Family History: Cardiovascular disease 19 FATHER, Onset:Unknown 19 MOTHER, Onset:Unknown Diabetes mellitus 19 FATHER 19 MOTHER Review of Systems (CHC) Constitutional: see HPI Reviewed Test Results Reviewed Test Results Lab Laboratory Tests Test 11/17/17 00:00 11/17/17 00:40 11/17/17 01:16 11/17/17 05:10 Range/Units White Blood Count 6.8 7.4 4.3-11.0 10^3/uL Red Blood Count 4.72 4.59 4.35-5.85 10^6/uL Hemoglobin 13.2 12.6 11.5-16.0 G/DL Hematocrit 37 36 35-52 % Mean Corpuscular Volume 78 L 78 L 80-99 FL Mean Corpuscular Hemoglobin 28 28 25-34 PG Mean Corpuscular Hemoglobin Concent 36 35 32-36 G/DL Red Cell Distribution Width 14.9 H 15.0 H 10.0-14.5 % Platelet Count 400 371 130-400 10^3/uL Mean Platelet Volume 9.3 9.1 7.4-10.4 FL Neutrophils (%) (Auto) 46 41 L 42-75 % Lymphocytes (%) (Auto) 42 46 H 12-44 % Monocytes (%) (Auto) 10 8 0-12 % Eosinophils (%) (Auto) 3 4 0-10 % Basophils (%) (Auto) 0 0 0-10 % Neutrophils # (Auto) 3.1 3.1 1.8-7.8 X 10^3 Lymphocytes # (Auto) 2.8 3.4 1.0-4.0 X 10^3 Monocytes # (Auto) 0.7 0.6 0.0-1.0 X 10^3 Eosinophils # (Auto) 0.2 0.3 0.0-0.3 10^3/uL Basophils # (Auto) 0.0 0.0 0.0-0.1 10^3/uL Prothrombin Time 11.8 L 12.2-14.7 SEC INR Comment 0.9 0.8-1.4 Activated Partial Thromboplast Time 31 24-35 SEC Sodium Level 129 L 135-145 MMOL/L Potassium Level 4.2 3.6-5.0 MMOL/L Chloride Level 96 L 98-107 MMOL/L Carbon Dioxide Level 15 L 21-32 MMOL/L Anion Gap 18 H 5-14 MMOL/L Blood Urea Nitrogen 11 7-18 MG/DL Creatinine 1.11 0.60-1.30 MG/DL Estimat Glomerular Filtration Rate 56 BUN/Creatinine Ratio 10 Glucose Level 625 *H 70-105 MG/DL Calcium Level 9.8 8.5-10.1 MG/DL Magnesium Level 3.8 H 1.8-2.4 MG/DL Total Bilirubin 0.4 0.1-1.0 MG/DL Aspartate Amino Transf (AST/SGOT) 22 5-34 U/L Alanine Aminotransferase (ALT/SGPT) < 30 0-55 U/L Alkaline Phosphatase 118 40-136 U/L Myoglobin 15.5 10.0-92.0 NG/ML Troponin I < 0.30 <0.30 NG/ML Total Protein 10.5 H 6.4-8.2 GM/DL Albumin 4.0 3.2-4.5 GM/DL Urine Color YELLOW Urine Clarity CLEAR Urine pH 6.5 5-9 Urine Specific [place] 1.010 L 1.016-1.022 Urine Protein 1+ H NEGATIVE Urine Glucose (UA) 4+ H NEGATIVE Urine Ketones NEGATIVE NEGATIVE Urine Nitrite NEGATIVE NEGATIVE Urine Bilirubin NEGATIVE NEGATIVE Urine Urobilinogen NORMAL NORMAL MG/DL Urine Leukocyte Esterase NEGATIVE NEGATIVE Urine RBC (Auto) NEGATIVE NEGATIVE Urine RBC NONE /HPF Urine WBC NONE /HPF Urine Squamous Epithelial Cells 2-5 /HPF Urine Crystals NONE /LPF Urine Bacteria NEGATIVE /HPF Urine Casts NONE /LPF Urine Mucus NEGATIVE /LPF Urine Culture Indicated NO Urine Opiates Screen NEGATIVE NEGATIVE Urine Oxycodone Screen NEGATIVE NEGATIVE Urine Methadone Screen NEGATIVE NEGATIVE Urine Propoxyphene Screen NEGATIVE NEGATIVE Urine Barbiturates Screen NEGATIVE NEGATIVE Ur Tricyclic Antidepressants Screen NEGATIVE NEGATIVE Urine Phencyclidine Screen NEGATIVE NEGATIVE Urine Amphetamines Screen NEGATIVE NEGATIVE Urine Methamphetamines Screen NEGATIVE NEGATIVE Urine Benzodiazepines Screen NEGATIVE NEGATIVE Urine Cocaine Screen NEGATIVE NEGATIVE Urine Cannabinoids Screen NEGATIVE NEGATIVE Glucometer 518 *H 70-110 MG/DL Test 11/17/17 06:02 Range/Units Glucometer 95 70-110 MG/DL Radiology NAME: BLAS QUEVEDO MED REC#: [id number] PT STATUS: ADM Leona : 1980 PHYSICIAN: ALBERTINA AGUDELO MD ADMIT DATE: 11/17/17/ICU Draft Date of Exam:11/17/17 CHEST 1 VIEW, AP/PA ONLY CHEST 1 VIEW, AP/PA ONLY Indication: Chest pain Comparison: 10/28/2017 Findings: No focal airspace disease in the visualized lungs. Previously noted bilateral perihilar and basilar opacities have resolved. Please note that the posterior lower lobes are poorly evaluated by portable radiography. No pleural effusion or pneumothorax. Normal cardiomediastinal silhouette. Impression: 1. No acute cardiopulmonary process by portable radiography. 2. Bilateral perihilar and basilar pulmonary opacities have resolved and were likely secondary to infection/inflammation. Dictated on workstation # [id number] Dict: 11/17/1724 Trans: 11/17/17 0726 [facility] [id number] Interpreted by: ROULA GALVEZ MD Electronically signed by: Physical Exam-([facility]C) Physical Exam Vital Signs VS - Last 72 Hours, by Label 11/16/17 11/16/17 11/17/17 11/17/17 23:54 23:54 01:54 01:54 Temp 97.4 97.4 97.4 Pulse 103 Resp 20 B/P (MAP) 147/102 (117) Pulse Ox 98 O2 Delivery Room Air Room Air 11/17/17 11/17/17 11/17/17 11/17/17 02:10 02:20 02:21 02:30 Temp 97.4 98.7 Pulse 96 109 90 95 Resp 22 18 B/P (MAP) 124/93 (117) 133/90 (104) 124/87 (99) Pulse Ox 98 100 99 O2 Delivery Room Air Room Air Room Air 11/17/17 11/17/17 11/17/17 11/17/17 02:39 02:45 03:00 03:15 Pulse 97 97 119 B/P (MAP) 122/97 (105) 129/91 (104) 137/94 (108) Pulse Ox 100 99 99 99 O2 Delivery Room Air Room Air Room Air Room Air 11/17/17 11/17/17 11/17/17 11/17/17 03:30 04:00 04:00 04:30 Pulse 104 107 105 B/P (MAP) 118/84 (95) 111/78 (89) 116/83 (94) Pulse Ox 98 97 97 99 O2 Delivery Room Air Room Air Room Air Room Air 11/17/17 11/17/17 11/17/17 05:00 06:00 07:00 Pulse 96 98 96 B/P (MAP) 115/81 (92) 118/74 (89) Pulse Ox 99 98 O2 Delivery Room Air Room Air Capillary Refill : Less Than 3 Seconds General Appearance: no apparent distress Eyes: Bilateral Eye Normal Inspection HEENT: pharynx normal Neck: supple Respiratory: lungs clear Cardiovascular: regular rate, rhythm Gastrointestinal: normal bowel sounds, non tender, soft, other (No epigastric tenderness) Rectal: deferred Back: normal inspection Extremities: pedal edema (Is not significant) Skin: normal color Assessment/Plan Assessment/Plan Admission Dx 1. Chest pain 2. Coronary artery disease 3. Hyperglycemia in a known diabetic 4. Tobaccoism Admission Status: Observation Reason for Inpatient Admission: Further monitoring of chest pain as well as serial cardiac enzymes Assessment & Plan 1. Chest painwith known history of coronary artery disease -Further monitoring of cardiac enzymes and EKGs -Consultation with cardiology -Pending cardiology input patient may need further evaluation of her level of anxiety. 2. Coronary artery disease -Maintain her cardiac regimen as prescribed by Dr. Benoit 3. Hyperglycemia in a known diabetic -Continue her glycemic control with Levemir and Humalog. 4. Tobaccoism -Continued encouragement for smoking cessation Clinical Quality Measures AMI/AHF: ASA po Prior to arrival: Yes (81 mg earlier today) DVT/VTE Risk/Contraindication: Risk Factor Score Per Nursin RFS Level Per Nursing on Admit: 1=Low/No VTE PPX ZACHARIAH HUTCHINS MD Nov 17, 2017 06:12
[2017-11-17 06:27] LABS: GLUCOSE 54 MG/DL (70-105)
[2017-11-17] MEDS ORDERED: FUROSEMIDE 40 MG (LASIX) TAB PO SCH (07:00)
--- NOTE | 2017-11-17 07:27 | Diagnostic Imaging Report ---
CHEST 1 VIEW, AP/PA ONLY Indication: Chest pain Comparison: 10/28/2017 Findings: No focal airspace disease in the visualized lungs. Previously noted bilateral perihilar and basilar opacities have resolved. Please note that the posterior lower lobes are poorly evaluated by portable radiography. No pleural effusion or pneumothorax. Normal cardiomediastinal silhouette. Impression: 1. No acute cardiopulmonary process by portable radiography. 2. Bilateral perihilar and basilar pulmonary opacities have resolved and were likely secondary to infection/inflammation. Dictated by: Dictated on workstation # [id number]
[2017-11-17] MEDS ORDERED: meTOproloL SUCCINATE 50 MG (TOPROL XL) TAB PO SCH (09:00)
[2017-11-17] MEDS ORDERED: ASPIRIN E.C. 81 MG (ECOTRIN) TAB PO SCH (09:00)
[2017-11-17] MEDS ORDERED: lisINopril 5 MG (PRINIVIL) TABLET PO SCH (09:00)
[2017-11-17] MEDS ORDERED: CLOPIDOGREL 75 MG (PLAVIX) TABLET PO SCH (09:00)
[2017-11-17] MEDS ORDERED: inSUlin DETERMIR 1 UNIT/0.01 ML (LEVEMIR) CHARGE PER UNIT SQ SCH (09:00)
--- NOTE | 2017-11-17 09:41 | Consultation-Cardiology ---
HPI-Cardiology Cardiology Consultation Date of Consultation 11/17/17 Date of Admission Time Seen by Provider: 09:35 Indication: Chest pain HPI 37 years old lady with history of coronary artery disease underwent stenting to the LAD about 2 weeks ago, she called me due to the active chest pain, I instructed her to go to the emergency room reported that she had chest pain the whole day yesterday, this morning she is feeling better, no further episodes of chest pain, EKG and cardiac enzymes were negative. Patient has multiple vessel disease and diagonal artery disease that is smaller artery. She expressed that she has been compliant with medication and work hard on smoking cessation down to 1 or 2 cigarettes a day, I educated her on smoking cessation and compliance with medications again Home Medications & Allergies Allergies: Coded Allergies: coconut (Verified Allergy, Severe, anaphylactic reaction, 07/11/17) ketorolac (Unverified Allergy, Unknown, 08/19/15) Home Medication List Reviewed: Yes VYK-Quguty-Wvxelu Hx Patient Social History Marital Status: cohabiting Alcohol Use: Denies Use Recreational Drug Use: No Smoking Status: Current Everyday Smoker Type Used: Cigarettes 2nd Hand Smoke Exposure: Yes Recent Foreign Travel: No Recent Infectious Disease Expo: No Recent Hopitalizations: No Physical Abuse Screen: No Sexual Abuse: No Immunizations Up To Date Tetanus Booster (TDap): Unknown Date of Pneumonia Vaccine: September 09, 2016 Past Medical History Past medical history as discussed Family Medical History Significant Family History: Other Conditions/Hx Family History: Cardiovascular disease 19 FATHER, Onset:Unknown 19 MOTHER, Onset:Unknown Diabetes mellitus 19 FATHER 19 MOTHER Constitutional: no symptoms reported, see HPI EENTM: see HPI, no symptoms reported Respiratory: see HPI; No cough, No dyspnea on exertion, No hemoptysis, No orthopnea, No phlegm, No short of breath, No stridor, No wheezing, No other Cardiovascular: see HPI, chest pain; No edema, No Hx of Intervention, No palpitations, No syncope, No vascular heart diseas, No other Gastrointestinal: no symptoms reported, see HPI Genitourinary: no symptoms reported, see HPI Musculoskeletal: no symptoms reported, see HPI Skin: no symptoms reported, see HPI Psychiatric/Neurological: No Symptoms Reported, See HPI Reviewed Test Results Reviewed Test Results Lab Laboratory Tests Test 11/17/17 00:00 11/17/17 00:40 11/17/17 01:16 11/17/17 05:10 Range/Units White Blood Count 6.8 7.4 4.3-11.0 10^3/uL Red Blood Count 4.72 4.59 4.35-5.85 10^6/uL Hemoglobin 13.2 12.6 11.5-16.0 G/DL Hematocrit 37 36 35-52 % Mean Corpuscular Volume 78 L 78 L 80-99 FL Mean Corpuscular Hemoglobin 28 28 25-34 PG Mean Corpuscular Hemoglobin Concent 36 35 32-36 G/DL Red Cell Distribution Width 14.9 H 15.0 H 10.0-14.5 % Platelet Count 400 371 130-400 10^3/uL Mean Platelet Volume 9.3 9.1 7.4-10.4 FL Neutrophils (%) (Auto) 46 41 L 42-75 % Lymphocytes (%) (Auto) 42 46 H 12-44 % Monocytes (%) (Auto) 10 8 0-12 % Eosinophils (%) (Auto) 3 4 0-10 % Basophils (%) (Auto) 0 0 0-10 % Neutrophils # (Auto) 3.1 3.1 1.8-7.8 X 10^3 Lymphocytes # (Auto) 2.8 3.4 1.0-4.0 X 10^3 Monocytes # (Auto) 0.7 0.6 0.0-1.0 X 10^3 Eosinophils # (Auto) 0.2 0.3 0.0-0.3 10^3/uL Basophils # (Auto) 0.0 0.0 0.0-0.1 10^3/uL Prothrombin Time 11.8 L 12.2-14.7 SEC INR Comment 0.9 0.8-1.4 Activated Partial Thromboplast Time 31 24-35 SEC Sodium Level 129 L 136 135-145 MMOL/L Potassium Level 4.2 4.1 3.6-5.0 MMOL/L Chloride Level 96 L 102 98-107 MMOL/L Carbon Dioxide Level 15 L 16 L 21-32 MMOL/L Anion Gap 18 H 18 H 5-14 MMOL/L Blood Urea Nitrogen 11 12 7-18 MG/DL Creatinine 1.11 0.64 0.60-1.30 MG/DL Estimat Glomerular Filtration Rate 56 > 60 BUN/Creatinine Ratio 10 19 Glucose Level 625 *H 54 *L 70-105 MG/DL Calcium Level 9.8 9.8 8.5-10.1 MG/DL Magnesium Level 3.8 H 1.8-2.4 MG/DL Total Bilirubin 0.4 0.1-1.0 MG/DL Aspartate Amino Transf (AST/SGOT) 22 5-34 U/L Alanine Aminotransferase (ALT/SGPT) < 30 0-55 U/L Alkaline Phosphatase 118 40-136 U/L Myoglobin 15.5 10.0-92.0 NG/ML Troponin I < 0.30 < 0.30 <0.30 NG/ML Total Protein 10.5 H 6.4-8.2 GM/DL Albumin 4.0 3.2-4.5 GM/DL Urine Color YELLOW Urine Clarity CLEAR Urine pH 6.5 5-9 Urine Specific Aspers 1.010 L 1.016-1.022 Urine Protein 1+ H NEGATIVE Urine Glucose (UA) 4+ H NEGATIVE Urine Ketones NEGATIVE NEGATIVE Urine Nitrite NEGATIVE NEGATIVE Urine Bilirubin NEGATIVE NEGATIVE Urine Urobilinogen NORMAL NORMAL MG/DL Urine Leukocyte Esterase NEGATIVE NEGATIVE Urine RBC (Auto) NEGATIVE NEGATIVE Urine RBC NONE /HPF Urine WBC NONE /HPF Urine Squamous Epithelial Cells 2-5 /HPF Urine Crystals NONE /LPF Urine Bacteria NEGATIVE /HPF Urine Casts NONE /LPF Urine Mucus NEGATIVE /LPF Urine Culture Indicated NO Urine Opiates Screen NEGATIVE NEGATIVE Urine Oxycodone Screen NEGATIVE NEGATIVE Urine Methadone Screen NEGATIVE NEGATIVE Urine Propoxyphene Screen NEGATIVE NEGATIVE Urine Barbiturates Screen NEGATIVE NEGATIVE Ur Tricyclic Antidepressants Screen NEGATIVE NEGATIVE Urine Phencyclidine Screen NEGATIVE NEGATIVE Urine Amphetamines Screen NEGATIVE NEGATIVE Urine Methamphetamines Screen NEGATIVE NEGATIVE Urine Benzodiazepines Screen NEGATIVE NEGATIVE Urine Cocaine Screen NEGATIVE NEGATIVE Urine Cannabinoids Screen NEGATIVE NEGATIVE Glucometer 518 *H 70-110 MG/DL Test 11/17/17 06:02 Range/Units Glucometer 95 70-110 MG/DL Laboratory Tests 11/17/17 00:00: Mean Corpuscular Volume 78L, Red Cell Distribution Width 14.9H, Prothrombin Time 11.8L, Sodium Level 129L, Chloride Level 96L, Carbon Dioxide Level 15L, Anion Gap 18H, Glucose Level 625*H, Magnesium Level 3.8H, Total Protein 10.5H 11/17/17 00:40: Urine Specific Aspers 1.010L, Urine Protein 1+H, Urine Glucose (UA) 4+H 11/17/17 01:16: Glucometer 518*H 11/17/17 05:10: Mean Corpuscular Volume 78L, Red Cell Distribution Width 15.0H, Carbon Dioxide Level 16L, Anion Gap 18H, Glucose Level 54*L, Neutrophils (%) (Auto) 41L, Lymphocytes (%) (Auto) 46H 11/17/17 06:02: Radiology NAME: BLAS QUEVEDO [facility] REC#: [id number] PT STATUS: ADM Leona : 1980 PHYSICIAN: ALBERTINA AGUDELO MD ADMIT DATE: 11/17/17/ICU Draft Date of Exam:11/17/17 CHEST 1 VIEW, AP/PA ONLY CHEST 1 VIEW, AP/PA ONLY Indication: Chest pain Comparison: 10/28/2017 Findings: No focal airspace disease in the visualized lungs. Previously noted bilateral perihilar and basilar opacities have resolved. Please note that the posterior lower lobes are poorly evaluated by portable radiography. No pleural effusion or pneumothorax. Normal cardiomediastinal silhouette. Impression: 1. No acute cardiopulmonary process by portable radiography. 2. Bilateral perihilar and basilar pulmonary opacities have resolved and were likely secondary to infection/inflammation. Dictated on workstation # [id number] Dict: 11/17/17723 Trans: 11/17/17725 CV [id number] Interpreted by: ROULA GALVEZ MD Electronically signed by: Physical Exam Vital Signs Vital Signs - First Documented 11/16/17 23:54 Temp 97.4 Pulse 103 Resp 20 B/P (MAP) 147/102 (117) Pulse Ox 98 O2 Delivery Room Air Capillary Refill : Less Than 3 Seconds Height, Weight, BMI Height: 5'2.00" Weight: 150lbs. 0.0oz. 68.143327jd; 27.4 BMI Method:Stated General Appearance: No Apparent Distress, WD/WN Eyes: Bilateral Eye Normal Inspection, Bilateral Eye PERRL, Bilateral Eye EOMI HEENT: PERRL/EOMI, TMs Normal, Normal ENT Inspection, Pharynx Normal Neck: Full Range of Motion, Normal Inspection, Non Tender, Supple, Carotid Bruit Respiratory: Chest Non Tender, Lungs Clear, Normal Breath Sounds, No Accessory Muscle Use, No Respiratory Distress Cardiovascular: Regular Rate, Rhythm, No Edema, No Gallop, No JVD, No Murmur, Normal Peripheral Pulses Gastrointestinal: Normal Bowel Sounds, No Organomegaly, No Pulsatile Mass, Non Tender, Soft Back: Normal Inspection, No CVA Tenderness, No Vertebral Tenderness Extremity: Normal Capillary Refill, Normal Inspection, Normal Range of Motion, Non Tender, No Calf Tenderness, No Pedal Edema Neurologic/Psychiatric: Alert, Oriented x3, No Motor/Sensory Deficits, Normal Mood/Affect Skin: Normal Color, Warm/Dry Lymphatic: No Adenopathy A/P-Cardiology Admission Diagnosis Chest pain nonspecific etiology Coronary artery disease Diabetes mellitus Tobaccoism Assessment/Plan Chest pain resembling angina, atypical in presentation, currently chest pain- free, cardiac enzymes and EKG did not show any acute abnormality. I will add to her home medication Imdur and evaluate her tolerance and response. CAD. Card cath of 10/27/[address] Benoit showed 90% mid-distal LAD stenosis that was successfully stented with Alp Xience 2.25x15 mm stent; multiple 50% stenoses in the LAD; 60% stenosis in prox D2; mild to mod diff disease of LCX; 30-40% distal RCA; LVEF 65%; LVEDP [address] chest angio on 10/23/17 did not show any PE Echocardiogram of 10-25-17 showed LVEF 55-60%. Mild TR. PASP 30 mmHg Bilat leg swelling likely due to venous insufficiency and/or ac sim CHF. Bilat leg venous Duplex of 10/23/17 did not show any DVT DM II, poorly controlled, discussed management with Dr. Guo Chronic tobacco use - cessation advised Okay for discharge from cardiology standpoint Clinical Quality Measures AMI/AHF: ASA po Prior to arrival: Yes (81 mg earlier today) DVT/VTE Risk/Contraindication: Risk Factor Score Per Nursin RFS Level Per Nursing on Admit: 1=Low/No VTE PPX KRISTAL IZAGUIRRE MD Nov 17, 2017 09:40
[2017-11-17] MEDS ORDERED: ISOS30TA3 PO (09:43)
[2017-11-17] MEDS ORDERED: PANT40SU PO (09:43)
[2017-11-17] MEDS ORDERED: INSU100I23 SQ (11:31)
[2017-11-17] MEDS ORDERED: METF10002 PO (11:31)
[2017-11-17] MEDS ORDERED: INSU100V5 SQ (11:31)
--- OUTSIDE RECORDS SUMMARY | 2017-11-17 11:53 | XMS REPORT | Clinical Summary ---
Author Author [facility] Organization [facility] Address Unknown Phone Unavailable Care Team Providers Care Straight Cutter Name Role Phone Alfred Diaz MD PCP Unavailable Source Comments Some departments are not documenting in the electronic medical record. If you do not see the information that you expected, contact Release of Information in the Health Information Management department at [phone] for further assistance in locating additional records.[facility] Allergies Not on File Current Medications Not [...]
--- OUTSIDE RECORDS SUMMARY | 2017-11-17 11:54 | XMS REPORT ---
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 Active 272681622 Problem Elevated BUN R79.9 Active 367751236 Problem PVC (premature ventricular contraction) I49.3 Active 37738289 Problem Hyperlipidemia LDL goal <70 E78.5 Active 53439853 Problem Gastroesophageal reflux disease without esophagitis K21.9 Active 509199351 Problem Coronary artery disease involving [place] heart with angina pectoris, unspecified vessel or lesion type I25.119 Active 35315178 Problem Post-traumatic stress reaction F43.10 Active 79259151 Problem Essential hypertension I10 Active 34709733 Problem Atherosclerotic heart disease of [place] coronary artery without angina pectoris I25.10 Active 724177496 Problem Cigarette smoker F17.210 Active 46301161 ALLERGIES No Information ENCOUNTERS Encounter Location Date Diagnosis [facility] [id number] [place] [address] Nov, [facility] [id number] [place] [address]34[address] Oct, [facility] [id number] [place] [address]60- 7131 Oct, Type 2 diabetes mellitus with diabetic polyneuropathy E11.42 [facility] [address] [place] [address] 05336- 1186 Oct, Diarrhea, unspecified type R19.7 ; Gastroesophageal reflux disease without esophagitis K21.9 and Vaginal discharge N89.8 [facility] [id number] [place] [address] 66213- 5083 Oct, Type 2 diabetes mellitus with diabetic polyneuropathy E11.42 [facility] [id number] [place] [address] 27169- 7149 Oct, Hyperlipidemia LDL goal <70 E78.5 [place] [address] [address] Oct, Atherosclerotic heart disease of [place] coronary artery without angina pectoris I25.10 ; Coronary artery disease involving [place] heart with angina pectoris, unspecified vessel or lesion type I25.119 ; Type 2 diabetes mellitus with diabetic polyneuropathy E11.42 ; Hyperlipidemia LDL goal <70 E78.5 ; Cigarette smoker F17.210 and Post-traumatic stress reaction F43.10 [place] [id number] [place] [address] 34358- 1541 Oct, [place] [id number] [place] [address] 77632- 7520 Oct, Difficulty breathing R06.89 ; Hospital discharge follow-up Z09 and Bilateral lower extremity edema R60.0 [place] [id number] [place] [address] 14914- 1014 Oct, [facility] [id number] [place] [address] Oct, Dependent edema R60.9 [facility] [id number] [place] [address] 47[address]- 28[address] Oct, [facility] [id number] [place] [address] 69215- 1304 Oct, [place] [address] [address] Oct, Type 2 diabetes mellitus with diabetic polyneuropathy E11.42 [place] [id number] [place] [address] 48039- 1466 Oct, [facility] [address] [address] Sep, [facility] [id number] [address] August, [facility] [address] [address] Jul, [facility] [id number] [place] [address] 95254- 8866 Jul, Establishing care with new doctor, encounter for Z76.89 ; Type 2 diabetes mellitus with diabetic polyneuropathy E11.42 ; snf 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 Z79.4 ; Hyperlipidemia LDL goal <70 E78.5 ; Essential hypertension I10 and Chest pain, unspecified type R07.9 [facility] [address] [address] Jul, [facility] [id number] [place] [address] 44387- 1734 Jul, [facility] [address] [address] Jun, [facility] [address] [place] [address] 97855- 2847 Jun, [facility] [address] [address] Jun, [facility] [address] [address] Jun, Acute hyperglycemia R73.9 ; Type 2 diabetes mellitus with diabetic polyneuropathy E11.42 ; 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.4 ; HTN, goal below 130/80 I10 and Hyperlipidemia LDL goal <70 E78.5 [facility] [address] [address] August, [facility] [address] [address] August, [facility] [address] [facility] [id number] [place] [address] August, Acute vaginitis N76.0 ; Trichomonas vaginitis A59.01 and Vaginal discharge N89.8 IMMUNIZATIONS No Known Immunizations SOCIAL HISTORY Never Assessed REASON FOR VISIT Update med list PLAN OF CARE VITAL SIGNS MEDICATIONS Medication Instructions Dosage Frequency Start Date End Date Duration Status Atorvastatin Calcium 80 MG Orally Once a day 1 tablet 24h Active Test strips Test Strips Check blood sugar ACHS Active Levemir FlexTouch 100 UNIT/ML Subcutaneous HS 15 Units Active Pen Mcintire 31G X 6 MM Active Fluoxetine HCl 20 MG Orally Once a day 1 capsule in the morning 24h Active Labetalol HCl 100 mg Orally 2 times a day 1 tablet 12h Active Humalog KwikPen 100 UNIT/ML Subcutaneous 3 times a day Inject 10 Units with meals 8h Active Lyrica 75 MG Orally TID PRN 1 capsule Unknown Duloxetine HCl 30 MG Orally Once a day 1 capsule 24h Unknown Blood Glucose Monitor System w/Device as directed Jun, Active Metformin HCl 1000 MG Orally Twice a day 1 tablet with meals 12h Active Blood Glucose Test Strip One Touch Verio strip and Delica lancet 3 times a day test blood sugar 8h Jun, Active Naproxen Sodium 220 MG Orally every 12 hrs 1 tablet with food or milk as needed 12h Active RESULTS No Results PROCEDURES No Known procedures INSTRUCTIONS MEDICATIONS ADMINISTERED No Known Medications MEDICAL (GENERAL) HISTORY Type Description Date Medical History Type 2 diabetes mellitus with diabetic polyneuropathy Medical History 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
--- OUTSIDE RECORDS SUMMARY | 2017-11-17 11:54 | XMS REPORT ---
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 Active 603095072 Problem Elevated BUN R79.9 Active 829034025 Problem PVC (premature ventricular contraction) I49.3 Active 90472804 Problem Hyperlipidemia LDL goal <70 E78.5 Active 90964698 Problem Gastroesophageal reflux disease without esophagitis K21.9 Active 138445768 Problem Coronary artery disease involving [place] heart with angina pectoris, unspecified vessel or lesion type I25.119 Active 52811633 Problem Post-traumatic stress reaction F43.10 Active 35859307 Problem Essential hypertension I10 Active 49063255 Problem Atherosclerotic heart disease of [place] coronary artery without angina pectoris I25.10 Active 077425365 Problem Cigarette smoker F17.210 Active 44845381 ALLERGIES No Information ENCOUNTERS Encounter Location Date Diagnosis [place] [id number] [place] [address] Nov, [facility] [address] [place] [address] 10435- 8842 Oct, [place] [address] [place] [id number] [place] [address] 41094- 3363 Oct, Type 2 diabetes mellitus with diabetic polyneuropathy E11.42 [facility] [address] [address] Oct, Diarrhea, unspecified type R19.7 ; Gastroesophageal reflux disease without esophagitis K21.9 and Vaginal discharge N89.8 [facility] [id number] [place] [address] 51205- 4888 Oct, Type 2 diabetes mellitus with diabetic polyneuropathy E11.42 [facility] [id number] [place] [address] 71112- 7610 Oct, Hyperlipidemia LDL goal <70 E78.5 [place] [address] [address]- [address] Oct, Atherosclerotic heart disease of [place] coronary artery without angina pectoris I25.10 ; Coronary artery disease involving [place] heart with angina pectoris, unspecified vessel or lesion type I25.119 ; Type 2 diabetes mellitus with diabetic polyneuropathy E11.42 ; Hyperlipidemia LDL goal <70 E78.5 ; Cigarette smoker F17.210 and Post-traumatic stress reaction F43.10 [place] [address] [address] Oct, [place] [address] [address]- [address] Oct, Difficulty breathing R06.89 ; Hospital discharge follow-up Z09 and Bilateral lower extremity edema R60.0 [place] [id number] [place] [address] 09905- 7621 Oct, [facility] [id number] [place] [address]150 -[address] Oct, Dependent edema R60.9 [facility] [id number] [place] [address] 27011- 7771 Oct, [facility] [id number] [place] [address] 10984- 7920 Oct, [place] [id number] [place] [address] 13983- 9955 Oct, Type 2 diabetes mellitus with diabetic polyneuropathy E11.42 [place] [id number] [place] [address] 64742- 7319 Oct, [facility] [address] [address] Sep, [facility] [address] [address] August, [facility] [address] [address] Jul, [facility] [id number] [place] [address] 62801- 6397 Jul, Establishing care with new doctor, encounter for Z76.89 ; Type 2 diabetes mellitus with diabetic polyneuropathy E11.42 ; 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 ; Hyperlipidemia LDL goal <70 E78.5 ; Essential hypertension I10 and Chest pain, unspecified type R07.9 [facility] [address] [address] Jul, [facility] [id number] [place] [address] 42955- 7216 Jul, [facility] [address] [address]- [address] Jun, [facility] [id number] [address] Jun, [facility] [id number] [address] Jun, [facility] [address] [address] Jun, Acute hyperglycemia R73.9 ; Type 2 diabetes mellitus with diabetic polyneuropathy E11.42 ; [facility]PC 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 Z79.4 ; HTN, goal below 130/80 I10 and Hyperlipidemia LDL goal <70 E78.5 [facility] [address] [address] August, [facility] [address] [address] August, [facility] [address] [facility] [id number] [place] [address] August, Acute vaginitis N76.0 ; Trichomonas vaginitis A59.01 and Vaginal discharge N89.8 IMMUNIZATIONS No Known Immunizations SOCIAL HISTORY Never Assessed REASON FOR VISIT Requests return call PLAN OF CARE VITAL SIGNS MEDICATIONS Unknown Medications RESULTS No Results PROCEDURES No Known procedures INSTRUCTIONS MEDICATIONS ADMINISTERED No Known Medications MEDICAL (GENERAL) HISTORY Type Description Date Medical History Type 2 diabetes mellitus with diabetic polyneuropathy Medical History FPC 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 Medical History HTN, goal below 130/80 Medical History Hyperlipidemia LDL goal <70 Medical History Left Lower Nodule 9mm stable Surgical History C-Sectionx3 Surgical History Left breast surgery for yeast Surgical History Tubal Ligation Hospitalization History Surgers/Child Hospitalization History ER visit for Hyperglycemia 10/16/2017 Hospitalization History surgery angio 10/25/2017
--- OUTSIDE RECORDS SUMMARY | 2017-11-17 11:54 | XMS REPORT ---
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.4 Active 606556252 Problem Type 2 diabetes mellitus with diabetic polyneuropathy E11.42 Active 79099171 Problem PVC (premature ventricular contraction) I49.3 Active 09170571 Problem Elevated BUN R79.9 Active 145355881 Problem Atherosclerotic heart disease of [place] coronary artery without angina pectoris I25.10 Active 380929313 Problem Coronary artery disease involving [place] heart with angina pectoris, unspecified vessel or lesion type I25.119 Active 84481547 Problem Chest pain, unspecified type R07.9 Active 23849740 Problem Essential hypertension I10 Active 20551800 Problem Cigarette smoker F17.210 Active 19682352 Problem Post-traumatic stress reaction F43.10 Active 29050904 ALLERGIES Substance Reaction Event Type Date Status Adhesive Bandages Unknown Drug Allergy Jun, Active Toradol Unknown Non Drug Allergy Jun, Active ENCOUNTERS Encounter Location Date Diagnosis [facility] [id number] [address] Nov, [facility] [id number], [place] [address] Oct, [facility] [id number], [place] [address] Oct, Type 2 diabetes mellitus with diabetic polyneuropathy E11.42 [facility] [id number], [place] [address] Oct, Hyperlipidemia LDL goal <70 E78.5 [facility] [id number] [place] [address] Oct, Atherosclerotic heart disease of [place] coronary artery without angina pectoris I25.10 ; Coronary artery disease involving [place] heart with angina pectoris, unspecified vessel or lesion type I25.119 ; Type 2 diabetes mellitus with diabetic polyneuropathy E11.42 ; Hyperlipidemia LDL goal <70 E78.5 ; Cigarette smoker F17.210 and Post-traumatic stress reaction F43.10 [facility] [address] [address] Oct, [facility] [address] [address] Oct, Difficulty breathing R06.89 ; Hospital discharge follow-up Z09 and Bilateral lower extremity edema R60.0 [facility] [address] [address] Oct, [facility] [id number] [place] [address] Oct, Dependent edema R60.9 [facility] [id number] [place] [address] 05248- 0164 Oct, [facility] [id number] [place] [address] 9[address]- 0984 Oct, [facility] [id number] [place] [address] 39319- 2328 Oct, Type 2 diabetes mellitus with diabetic polyneuropathy E11.42 [facility] [id number] [place] [address] 12718- 6[address] Oct, [facility] [id number] [place] [address] 99023- 9570 Sep, [facility] [id number] [place] [address] 6[address]- 6[address] August, [facility] [id number] [place] [address] Jul, [facility] [id number] [address] Jul, Establishing care with new doctor, encounter for Z76.89 ; Type 2 diabetes mellitus with diabetic polyneuropathy E11.42 ; 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.4 ; Hyperlipidemia LDL goal <70 E78.5 ; Essential hypertension I10 and Chest pain, unspecified type R07.9 [facility] [id number] [address] Jul, [facility] [address] [address] Jul, [facility] [id number] [place] [address] Jun, [facility] [id number] [place] [address] 27[address]- 70[address] Jun, [facility] [id number] [place] [address] 17148- 6214 Jun, [facility] [address], [place] [address] Jun, Acute hyperglycemia R73.9 ; Type 2 diabetes mellitus with diabetic polyneuropathy E11.42 ; 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.4 ; HTN, goal below 130/80 I10 and Hyperlipidemia LDL goal <70 E78.5 [facility] [address], [place] [address] August, [facility] [id number] [address] August, [facility] [id number], [place] [address] August, Acute vaginitis N76.0 ; Trichomonas vaginitis A59.01 and Vaginal discharge N89.8 IMMUNIZATIONS No Known Immunizations SOCIAL HISTORY Never Assessed REASON FOR VISIT [facility] f/u elevated blood sugars, pt was taken by ambulance to [facility] for low blood sugar-AHarrymanRN, Med list verified by ED records and bottles PLAN OF CARE Activity Details Follow Up after hospital Reason: VITAL SIGNS Height 62 in 2017-07-10 Weight 153.5 lbs 2017-07-10 Temperature 97.8 degrees Fahrenheit 2017-07-10 Heart Rate 108 bpm 2017-07-10 Respiratory Rate 20 2017-07-10 BMI 28.07 kg/m2 2017-07-10 Blood pressure systolic 124 mmHg 2017-07-10 Blood pressure diastolic 76 mmHg 2017-07-10 MEDICATIONS Medication Instructions Dosage Frequency Start Date End Date Duration Status Naproxen Sodium 220 MG Orally every 12 hrs 1 tablet with food or milk as needed 12h Active Pen [place] 31G X 6 MM Active Humalog KwikPen 100 UNIT/ML Subcutaneous 3 times a day Inject 8Units with meals 8h Active Labetalol HCl 100 mg Orally TID 1 tablet 8h Active Metformin HCl 1000 MG Orally Twice a day 1 tablet with meals 12h Active Test strips Test Strips Check blood sugar ACHS Active Lyrica 75 MG Orally TID PRN 1 capsule Active Fluoxetine HCl 20 MG Orally Once a day 1 capsule in the morning 24h Active Levemir FlexTouch 100 UNIT/ML Subcutaneous HS 15 Units Active Atorvastatin Calcium 80 MG Orally Once a day 1 tablet 24h Active Duloxetine HCl 30 MG Orally Once a day 1 capsule 24h Active RESULTS Name Result Date Reference Range GLUCOSE FINGERSTICK (IN HOUSE) 2017-07-10 GLU FINGERSTICK [facility] PC Lot # [id number] Exp date 10/2017 PROCEDURES Procedure Date Ordered Result Body Site GLUCOSE BLOOD TEST July 10, 2017 INSTRUCTIONS MEDICATIONS ADMINISTERED No Known Medications MEDICAL (GENERAL) HISTORY Type Description Date Medical History Type 2 diabetes mellitus with diabetic polyneuropathy Medical History retirement 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 Medical History HTN, goal below 130/80 Medical History Hyperlipidemia LDL goal <70 Medical History Left Lower Nodule 9mm stable Surgical History C-Sectionx3 Surgical History Left breast surgery for yeast Surgical History Tubal Ligation Hospitalization History Surgers/Child Hospitalization History ER visit for Hyperglycemia 10/16/2017 Hospitalization History surgery angio 10/25/2017
--- OUTSIDE RECORDS SUMMARY | 2017-11-17 11:54 | XMS REPORT ---
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 Z79.4 Active 446305855 Problem Type 2 diabetes mellitus with diabetic polyneuropathy E11.42 Active 89648434 Problem PVC (premature ventricular contraction) I49.3 Active 55554183 Problem Elevated BUN R79.9 Active 964025399 Problem Atherosclerotic heart disease of [place] coronary artery without angina pectoris I25.10 Active 609212895 Problem Coronary artery disease involving [place] heart with angina pectoris, unspecified vessel or lesion type I25.119 Active 32640057 Problem Chest pain, unspecified type R07.9 Active 30685383 Problem Essential hypertension I10 Active 76397574 Problem Cigarette smoker F17.210 Active 51302727 Problem Post-traumatic stress reaction F43.10 Active 13250228 ALLERGIES No Information ENCOUNTERS Encounter Location Date Diagnosis [place] [id number] [address] Nov, [place] [address] [place] [address] Oct, [place] [id number] [address] Oct, Hyperlipidemia LDL goal <70 E78.5 [place] [address] [place] [address] Oct, Atherosclerotic heart disease of [place] coronary artery without angina pectoris I25.10 ; Coronary artery disease involving [place] heart with angina pectoris, unspecified vessel or lesion type I25.119 ; Type 2 diabetes mellitus with diabetic polyneuropathy E11.42 ; Hyperlipidemia LDL goal <70 E78.5 ; Cigarette smoker F17.210 and Post-traumatic stress reaction F43.10 [facility] [id number] [place] [address]263[address] Oct, [facility] [id number] [place] [address]74- 1033 Oct, Difficulty breathing R06.89 ; Hospital discharge follow-up Z09 and Bilateral lower extremity edema R60.0 [facility] [id number] [place] [address]- [address] Oct, [facility] [id number] [place] [address] Oct, Dependent edema R60.9 [facility] [id number] [place] [address] 86408- 8612 Oct, [facility] [id number] [place] [address] 40937- 9637 Oct, [facility] [id number] [place] [address] 98679- 1700 Oct, Type 2 diabetes mellitus with diabetic polyneuropathy E11.42 [facility] [id number] [place] [address] 46220- 3470 Oct, [facility] [id number] [place] [address] 28623- 6969 Sep, [facility] [id number] [place] [address] 15086- 5540 August, [facility] [id number] [place] [address] 50506- 4365 Jul, [facility] [id number] [place] [address] 14275- 6726 Jul, Establishing care with new doctor, encounter for Z76.89 ; Type 2 diabetes mellitus with diabetic polyneuropathy E11.42 ; long term care pharmacist 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 Z79.4 ; Hyperlipidemia LDL goal <70 E78.5 ; Essential hypertension I10 and Chest pain, unspecified type R07.9 [facility] [id number] [place] [address] 91203- 6421 Jul, [facility] [id number] [place] [address] 98112- 8014 Jul, [facility] [id number] [place] [address] 98122- 4876 Jun, [facility] [id number] [place] [address] 98410- 3244 Jun, [facility] [id number] [place] [address] 12815- 1025 Jun, [facility] [id number] [place] [address] 14828- 5906 Jun, Acute hyperglycemia R73.9 ; Type 2 diabetes mellitus with diabetic polyneuropathy E11.42 ; long term care pharmacist 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 Z79.4 ; HTN, goal below 130/80 I10 and Hyperlipidemia LDL goal <70 E78.5 [facility] [id number] [place] [address] 89226 -[address]65 August, [facility] [address] [place] [address]34 -[address] August, [facility] [place] [id number] [place] [address] August, Acute vaginitis N76.0 ; Trichomonas vaginitis A59.01 and Vaginal discharge N89.8 IMMUNIZATIONS No Known Immunizations SOCIAL HISTORY Never Assessed REASON FOR VISIT Work Release PLAN OF CARE VITAL SIGNS MEDICATIONS Unknown [...]
--- OUTSIDE RECORDS SUMMARY | 2017-11-17 11:54 | XMS REPORT ---
Author Author ABDIEL ERNESTO [facility] Address [address] [place] [address] Care Team Providers Care Allied Health Teacher Name Role Phone ABDIELMADAN NARVAEZHANY Unavailable PROBLEMS Type Condition ICD9-CM Code OBE21-OA Code Onset Dates Condition Status SNOMED Code Problem Hyperlipidemia LDL goal <70 E78.5 Active 92545640 Problem FDC 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 Z79.4 Active 162735968 Problem Type 2 diabetes mellitus with diabetic polyneuropathy E11.42 Active 88470712 Problem PVC (premature ventricular contraction) I49.3 Active 93469445 Problem Elevated BUN R79.9 Active 108597387 Problem Atherosclerotic heart disease of [place] coronary artery without angina pectoris I25.10 Active 035114334 Problem Coronary artery disease involving [place] heart with angina pectoris, unspecified vessel or lesion type I25.119 Active 86431794 Problem Chest pain, unspecified type R07.9 Active 48714782 Problem Essential hypertension I10 Active 22516178 Problem Cigarette smoker F17.210 Active 97594876 Problem Post-traumatic stress reaction F43.10 Active 20171078 ALLERGIES No Information ENCOUNTERS Encounter Location Date Diagnosis [place] [address] [address] Nov, [place] [address] [place] [address]- 99[address] Oct, [facility] [address] [place] [address] 97016- 4036 Oct, Type 2 diabetes mellitus with diabetic polyneuropathy E11.42 [facility] [address] [place] [address] 55354- 7930 Oct, Hyperlipidemia LDL goal <70 E78.5 [place] [address] [place] [address] 43574- 2536 Oct, Atherosclerotic heart disease of [place] coronary artery without angina pectoris I25.10 ; Coronary artery disease involving [place] heart with angina pectoris, unspecified vessel or lesion type I25.119 ; Type 2 diabetes mellitus with diabetic polyneuropathy E11.42 ; Hyperlipidemia LDL goal <70 E78.5 ; Cigarette smoker F17.210 and Post-traumatic stress reaction F43.10 [facility] [id number] [place] [address] 73694- 3803 Oct, [facility] [address] [address] Oct, Difficulty breathing R06.89 ; Hospital discharge follow-up Z09 and Bilateral lower extremity edema R60.0 [facility] [id number] [place] [address] 94714- 9000 Oct, [facility] [id number] [place] [address] 07249 -1556 Oct, Dependent edema R60.9 [facility] [address] [place] [address] 30736- 6279 Oct, [facility] [address] [place] [address] 92895- 4663 Oct, [facility] [address] [place] [address] 00504- 7734 Oct, Type 2 diabetes mellitus with diabetic polyneuropathy E11.42 [facility] [address] [place] [address] 36296- 3578 Oct, [facility] [address] [place] [address] 46843- 5872 Sep, [facility] [id number] [place] [address] 05584- 6356 August, [facility] [address] [place] [address] 92283- 2872 Jul, [facility] [id number] [place] [address] 12926- 2030 Jul, Establishing care with new doctor, encounter for Z76.89 ; Type 2 diabetes mellitus with diabetic polyneuropathy E11.42 ; FDC 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 Z79.4 ; Hyperlipidemia LDL goal <70 E78.5 ; Essential hypertension I10 and Chest pain, unspecified type R07.9 [facility] [id number] [place] [address] 97492- 9696 Jul, [facility] [address] 27208- 9606 Jul, [facility] [address] [address]- [address] Jun, [place] [address] 14742- 8973 Jun, [facility] [id number] [place] [address] 44980- 1779 Jun, [facility] [address] [place] [address] 42770- 3042 Jun, Acute hyperglycemia R73.9 ; Type 2 diabetes mellitus with diabetic polyneuropathy E11.42 ; FDC 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 Z79.4 ; HTN, goal below 130/80 I10 and Hyperlipidemia LDL goal <70 E78.5 [facility] [id number] [place] [address] 73378 -[address] August, [facility] [id number] [place] [address] 77812 -5160 August, [facility] [id number] [place] [address] 30425 -[address]98 August, Acute vaginitis N76.0 ; Trichomonas vaginitis A59.01 and Vaginal discharge N89.8 IMMUNIZATIONS No Known Immunizations SOCIAL HISTORY Never Assessed REASON FOR VISIT Lab Results PLAN OF CARE VITAL SIGNS MEDICATIONS Medication Instructions Dosage Frequency Start Date End Date Duration Status Ciprofloxacin HCl 500 mg Orally twice a day 1 tablet 12h Jul, Jul, 03 days Active RESULTS No Results PROCEDURES No Known procedures INSTRUCTIONS MEDICATIONS ADMINISTERED No Known Medications MEDICAL (GENERAL) HISTORY Type Description Date Medical History Type 2 diabetes mellitus with diabetic polyneuropathy Medical History FDC 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 Medical History HTN, goal below 130/80 Medical History Hyperlipidemia LDL goal <70 Medical History Left Lower Nodule 9mm stable Surgical History C-Sectionx3 Surgical History Left breast surgery for yeast Surgical History Tubal Ligation Hospitalization History Surgers/Child Hospitalization History ER visit for Hyperglycemia 10/16/2017 Hospitalization History surgery angio 10/25/2017
--- OUTSIDE RECORDS SUMMARY | 2017-11-17 11:54 | XMS REPORT ---
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 Active 115452051 Problem Elevated BUN R79.9 Active 595952112 Problem PVC (premature ventricular contraction) I49.3 Active 08645770 Problem Hyperlipidemia LDL goal <70 E78.5 Active 35449336 Problem Gastroesophageal reflux disease without esophagitis K21.9 Active 808594320 Problem Coronary artery disease involving [place] heart with angina pectoris, unspecified vessel or lesion type I25.119 Active 45566573 Problem Post-traumatic stress reaction F43.10 Active 41564235 Problem Essential hypertension I10 Active 95502087 Problem Atherosclerotic heart disease of [place] coronary artery without angina pectoris I25.10 Active 888253152 Problem Cigarette smoker F17.210 Active 37303261 ALLERGIES Substance Reaction Event Type Date Status Adhesive Bandages Unknown Drug Allergy Jul, Active Toradol Unknown Non Drug Allergy Jul, Active ENCOUNTERS Encounter Location Date Diagnosis [facility] [id number], [place] [address] Nov, [facility] [address], [place] [address] Oct, [facility] [address], [place] [address] Oct, Type 2 diabetes mellitus with diabetic polyneuropathy E11.42 [facility] [id number], [place] [address] Oct, Diarrhea, unspecified type R19.7 ; Gastroesophageal reflux disease without esophagitis K21.9 and Vaginal discharge N89.8 [place] [id number] [place] [address] Oct, Type 2 diabetes mellitus with diabetic polyneuropathy E11.42 [place] [id number] [place] [address] Oct, Hyperlipidemia LDL goal <70 E78.5 [place] [address] [address] Oct, Atherosclerotic heart disease of [place] coronary artery without angina pectoris I25.10 ; Coronary artery disease involving [place] heart with angina pectoris, unspecified vessel or lesion type I25.119 ; Type 2 diabetes mellitus with diabetic polyneuropathy E11.42 ; Hyperlipidemia LDL goal <70 E78.5 ; Cigarette smoker F17.210 and Post-traumatic stress reaction F43.10 [place] [address] [address] Oct, [place] [id number] [place] [address] Oct, Difficulty breathing R06.89 ; Hospital discharge follow-up Z09 and Bilateral lower extremity edema R60.0 [place] [id number] [place] [address] Oct, [facility] [id number] [place] [address] Oct, Dependent edema R60.9 [place] [id number] [place] [address] Oct, [place] [address] [address] Oct, [place] [id number] [place] [address] Oct, Type 2 diabetes mellitus with diabetic polyneuropathy E11.42 [place] [address], [place] [address] Oct, [facility] [address], [place] [address] Sep, [facility] [address], [place] [address] August, [facility] [address], [place] [address] Jul, [facility] [address], [place] [address] Jul, Establishing care with new doctor, encounter for Z76.89 ; Type 2 diabetes mellitus with diabetic polyneuropathy E11.42 ; 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.4 ; Hyperlipidemia LDL goal <70 E78.5 ; Essential hypertension I10 and Chest pain, unspecified type R07.9 [facility] [address], [place] [address] Jul, [facility] [address], [place] [address] Jul, [facility] [address], [place] [address] Jun, [facility] [address], [place] [address] Jun, [facility] [address], [place] [address] Jun, [facility] [id number], [place] [address] Jun, Acute hyperglycemia R73.9 ; Type 2 diabetes mellitus with diabetic polyneuropathy E11.42 ; 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 care--tjanssenMA, --blood sugars get low alot of the time roughly about 100s, and highs would be 230-240s. PLAN OF CARE Activity Details Follow Up 3 Months, prn Reason:DM VITAL SIGNS Height 62 in 2017-07-23 Weight 163 lbs 2017-07-23 Temperature 97.7 degrees Fahrenheit 2017-07-23 Heart Rate 94 bpm 2017-07-23 Respiratory Rate 20 2017-07-23 BMI 29.81 kg/m2 2017-07-23 Blood pressure systolic 130 mmHg 2017-07-23 Blood pressure diastolic 88 mmHg 2017-07-23 MEDICATIONS Medication Instructions Dosage Frequency Start Date End Date Duration Status Metformin HCl 1000 MG Orally Twice a day 1 tablet with meals 12h 30 days Active Humalog KwikPen 100 UNIT/ML Subcutaneous 3 times a day Inject 4 Units with meals 8h 30 days Active Atorvastatin Calcium 80 MG Orally Once a day 1 tablet 24h 30 days Active Pen Hanna 31G X 6 MM Active Labetalol HCl 100 mg Orally 2 times a day 1 tablet 12h 30 days Active Levemir FlexTouch 100 UNIT/ML Subcutaneous HS 7 Units 30 days Active Fluoxetine HCl 20 MG Orally Once a day 1 capsule in the morning 24h Active Blood Glucose Monitor System w/Device as directed Jun, Active Naproxen Sodium 220 MG Orally every 12 hrs 1 tablet with food or milk as needed 12h Active Blood Glucose Test Strip Test Strips One Touch Verio strip and Delica lancet 3 times a day test blood sugar 8h Jun, 30 days Active RESULTS No Results PROCEDURES Procedure Date Ordered Result Body Site COMPLETE CBC W/AUTO DIFF WBC July 23, 2017 COMPREHEN METABOLIC PANEL July 23, 2017 ASSAY THYROID STIM HORMONE July 23, 2017 LIPID PANEL July 23, 2017 VENIPUNCT, ROUTINE* July 23, 2017 INSTRUCTIONS MEDICATIONS ADMINISTERED No Known Medications MEDICAL (GENERAL) HISTORY Type Description Date Medical History Type 2 diabetes mellitus with diabetic polyneuropathy Medical History nursing home 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 Medical History HTN, goal below 130/80 Medical History Hyperlipidemia LDL goal <70 Medical History Left Lower Nodule 9mm stable Surgical History C-Sectionx3 Surgical History Left breast surgery for yeast Surgical History Tubal Ligation Hospitalization History Surgers/Child Hospitalization History ER visit for Hyperglycemia 10/16/2017 Hospitalization History surgery angio 10/25/2017
--- OUTSIDE RECORDS SUMMARY | 2017-11-17 11:55 | XMS REPORT ---
Author Author BRANNON LE [facility] IN [facility] Address [address] [place] [address] Care Team Providers Care Canoe Builder Name Role Phone BRANNON LE Unavailable PROBLEMS Type Condition ICD9-CM Code ZEM46-SI Code Onset Dates Condition Status SNOMED Code Problem Hyperlipidemia LDL goal <70 E78.5 Active 72891846 Problem senior living 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 Z79.4 Active 525801410 Problem Type 2 diabetes mellitus with diabetic polyneuropathy E11.42 Active 60054167 Problem PVC (premature ventricular contraction) I49.3 Active 15565426 Problem Elevated BUN R79.9 Active 912713115 Problem Atherosclerotic heart disease of [place] coronary artery without angina pectoris I25.10 Active 388074731 Problem Coronary artery disease involving [place] heart with angina pectoris, unspecified vessel or lesion type I25.119 Active 56660285 Problem Chest pain, unspecified type R07.9 Active 52259484 Problem Essential hypertension I10 Active 13359170 Problem Cigarette smoker F17.210 Active 63869536 Problem Post-traumatic stress reaction F43.10 Active 52800085 ALLERGIES No Information ENCOUNTERS Encounter Location Date Diagnosis [place] [address], [place] [address] Nov, [address] [address], [place] [address] Oct, [place] [address], [place] [address] Oct, Hyperlipidemia LDL goal <70 E78.5 [place] [address] [place] [address] Oct, Atherosclerotic heart disease of [place] coronary artery without angina pectoris I25.10 ; Coronary artery disease involving [place] heart with angina pectoris, unspecified vessel or lesion type I25.119 ; Type 2 diabetes mellitus with diabetic polyneuropathy E11.42 ; Hyperlipidemia LDL goal <70 E78.5 ; Cigarette smoker F17.210 and Post-traumatic stress reaction F43.10 [facility] [id number] [place] [address] Oct, [facility] [id number] [place] [address] Oct, Difficulty breathing R06.89 ; Hospital discharge follow-up Z09 and Bilateral lower extremity edema R60.0 [facility] [id number] [place] [address] Oct, [facility] [id number] [place] [address] Oct, Dependent edema R60.9 [facility] [address] [address] Oct, [facility] [id number] [place] [address] Oct, [facility] [id number] [place] [address] Oct, Type 2 diabetes mellitus with diabetic polyneuropathy E11.42 [facility] [id number] [place] [address] Oct, [facility] [id number] [place] [address] Sep, [facility] [id number] [place] [address] August, [facility] [id number] [place] [address] Jul, [facility] [id number] [place] [address] Jul, Establishing care with new doctor, encounter for Z76.89 ; Type 2 diabetes mellitus with diabetic polyneuropathy E11.42 ; senior living 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 Z79.4 ; Hyperlipidemia LDL goal <70 E78.5 ; Essential hypertension I10 and Chest pain, unspecified type R07.9 [facility] [id number] [place] [address] Jul, [facility] [id number] [place] [address] Jul, [facility] [id number] [place] [address] Jun, [facility] [id number] [place] [address] Jun, [facility] [id number] [place] [address] 90[address]- [address] Jun, 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 ; HTN, goal below 130/80 I10 and Hyperlipidemia LDL goal <70 E78.5 [facility] [id number] [place] [address] August, [facility] [address] [place] [address] August, [facility] [address] [place] [address] August, Acute vaginitis N76.0 ; Trichomonas vaginitis A59.01 and Vaginal discharge N89.8 IMMUNIZATIONS No Known Immunizations SOCIAL HISTORY Never Assessed REASON FOR VISIT glucometer and test strips PLAN OF CARE VITAL SIGNS MEDICATIONS Medication Instructions Dosage Frequency Start Date End Date Duration Status Blood Glucose Monitor System w/Device as directed Jun, Active Blood Glucose Test Strip One Touch Verio strip and Delica lancet 3 times a day test blood sugar 8h Jun, Active RESULTS No Results PROCEDURES No Known procedures INSTRUCTIONS MEDICATIONS ADMINISTERED No Known Medications MEDICAL (GENERAL) HISTORY Type Description Date Medical History Type 2 diabetes mellitus with diabetic polyneuropathy 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
--- OUTSIDE RECORDS SUMMARY | 2017-11-17 12:06 | XMS REPORT | Clinical Summary ---
Author Author [facility] Organization [facility] Address Unknown Phone Unavailable Care Team Providers Care Cable Weaver Name Role Phone Alfred Diaz MD PCP Unavailable Source Comments Some departments are not documenting in the electronic medical record. If you do not see the information that you expected, contact Release of Information in the Health Information Management department at [phone] for further assistance in locating additional records.[facility] Allergies Not on File Current [...]
[2017-11-17] MEDS ORDERED: ATORVASTATIN 80 MG (LIPITOR) TABLET PO SCH (21:00)
--- NOTE | 2017-11-28 11:26 | Physician Query-Final Dx ---
Final Diagnosis Give Final Diagnosis Please give Final Diagnosis MACIE JOYCE Nov 28, 2017 11:26
== END 2017-11-17 11:31 | disposition home or self-care (01) ==
LOC: EDUNIT# 23:50 → ER 23:53 → ICU 23:54 → UNDOADMOB 11-17 01:25 → UNDODISOB 11-17 12:25
PROVIDERS: ADMIT Family Medicine; ATTEND Family Medicine
DX: R07.9 Chest pain, unspecified (principal); I25.10 Atherosclerotic heart disease of native coronary artery without angina pectoris; I10 Essential (primary) hypertension; E11.65 Type 2 diabetes mellitus with hyperglycemia; E11.43 Type 2 diabetes mellitus with diabetic autonomic (poly)neuropathy; F17.210 Nicotine dependence, cigarettes, uncomplicated; E78.5 Hyperlipidemia, unspecified; I07.1 Rheumatic tricuspid insufficiency; R60.0 Localized edema; Z79.82 Long term (current) use of aspirin; Z79.4 Long term (current) use of insulin; Z95.5 Presence of coronary angioplasty implant and graft
CPT/HCPCS: 36415; 71045; 80048; 80053; 80306; 81000; 82962; 83735; 83874; 84484; 84703; 85025; 85610; 85730; 93005; 93041; 96372; 96374

== ENCOUNTER 2017-11-21 13:16 | Emergency (ER) | payer SELFPAY ==
[~2017-11-21] VITALS: Ht 157.5 cm; Wt 67.6 kg
[~2017-11-21 13:16] MED LIST changes: +ISOS30TA3 PO; +PANT40SU PO
[2017-11-21] MEDS ORDERED: ASPIRIN 81 MG CHEW (CHILDREN'S ASA) PO ONE (13:30)
[2017-11-21] MEDS ORDERED: morphine INJ 10 MG/ML 1ML (SYR OR VIAL) IVP STA ×2 (13:39→14:43)
[2017-11-21] MEDS ORDERED: NS IV 500 ML 500 ML IV ONE ×2 (13:40→15:48)
[2017-11-21 13:44] LABS: BASOPHILS % (AUTO) 0 % (0-10); EOSINOPHILS # (AUTO) 0.3 10^3/uL (0.0-0.3); EOSINOPHILS % (AUTO) 3 % (0-10); HEMATOCRIT 38 % (35-52); HEMOGLOBIN 13.8 G/DL (11.5-16.0); LYMPHOCYTES # (AUTO) 3.6 X 10^3 (1.0-4.0); LYMPHOCYTES % (AUTO) 39 % (12-44); MEAN CORPUSCULAR HEMOGLOBIN 27 PG (25-34); MEAN CORPUSCULAR HGB CONC 36 G/DL (32-36); MEAN CORPUSCULAR VOLUME 76 FL (80-99); MEAN PLATELET VOLUME 9.5 FL (7.4-10.4); MONOCYTES # (AUTO) 0.6 X 10^3 (0.0-1.0); MONOCYTES % (AUTO) 7 % (0-12); NEUTROPHILS # (AUTO) 4.7 X 10^3 (1.8-7.8); NEUTROPHILS % (AUTO) 51 % (42-75); PLATELET COUNT 312 10^3/uL (130-400); RED BLOOD COUNT 5.07 10^6/uL (4.35-5.85); RED CELL DISTRIBUTION WIDTH 14.7 % (10.0-14.5); WHITE BLOOD COUNT 9.2 10^3/uL (4.3-11.0)
[2017-11-21 13:56] LABS: PROTHROMBIN TIME PATIENT 12.7 SEC (12.2-14.7)
--- NOTE | 2017-11-21 14:03 | ED Chest Pain ---
General Chief Complaint: Chest Pain Stated Complaint: CP Nursing Triage Note: PT AMB TO ROOM #9 W/O DIFFICULTY. A&OX4. CO CHEST PAIN. PT REPORTS SHE HAD A WIDOWMAKER AND STENT PLACED [address] BRADFORD AND IS HAVING SIMILAR PAIN TO THE PAIN SHE EXPEREINCED PRIOR TO. PT DENIES SOA AND DIZZINESS. NO EDEMA NOTED. PT REPORTS SHE WAS DC'D FROM VIA OPAL OBSERVATION 11/19/17. @ BEDSIDE. Nursing Sepsis Screen: No Definite Risk History of Present Illness Date Seen by Provider: Nov 21, 2017 Time Seen by Provider: 13:25 Initial Comments Here with report of central chest pain. She has had this ongoing over the last month and was in fact here a few days ago on observation visit. That did not find anything abnormal or significant. Dates the pain is worse today. It is associated with shortness of breath. Does have history of chronic back pain, diabetes and is a smoker. Blood sugars are not well controlled. Reports taking her meds as directed though. 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 NTG SL CAR BODY INSPECTOR: No Associated Symptoms: abdominal pain; No fever/chills, No nausea/vomiting, No shortness of breath, No weakness Allergies and Home Medications Allergies Coded Allergies: coconut (Verified Allergy, Severe, anaphylactic reaction, 07/11/17) ketorolac (Unverified Allergy, Unknown, 08/19/15) Home Medications Albuterol Sulfate 18 Gm Hfa.aer.ad, 2 PUFF IH Q4H PRN for SHORTNESS OF BREATH Prescribed by: ERNESTO MEADOWS on 10/24/17 1406 Aspirin 81 Mg Tab.chew, 81 MG PO DAILY Prescribed by: RALPH BLANCO on 10/29/17 0923 Atorvastatin Calcium 80 Mg Tablet, 80 MG PO DAILY, (Reported) LAST FILLED #30 07-11-17 Clopidogrel Bisulfate 75 Mg Tablet, 75 MG PO DAILY Prescribed by: RALPH BLANCO on 10/29/17 0923 Furosemide 40 Mg Tablet, 40 MG PO DAILY Prescribed by: RALPH BLANCO on 10/29/17 0923 Insulin Determir 1,000 Units/10 Ml Soln, 20 UNITS SQ BID Prescribed by: NORIS KEVIN on 11/17/17 113 Insulin Lispro 100 Unit/1 Ml Insuln.pen, 15 UNIT SQ TIDAC Prescribed by: NORIS KEVIN on 11/17/17 113 Isosorbide Mononitrate 30 Mg Tab.er.24h, 30 MG PO DAILY Prescribed by: KRISTAL HERNANDEZ on 11/17/17 09 Metformin HCl 1,000 Mg Tablet, 1,000 MG PO BID Prescribed by: NORIS KEVIN on 11/17/17 113 Metoprolol Succinate 50 Mg Tab.er.24h, 50 MG PO BID Prescribed by: RALPH BLANCO on 10/29/17 113 Pantoprazole Sodium 40 Mg Granpkt.dr, 40 MG PO DAILY Prescribed by: KRISTAL HERNANDEZ on 11/17/17942 Potassium Chloride 20 Meq Tab.er.prt, 20 MEQ PO DAILY@0700 Prescribed by: RALPH BLANCO on 10/29/17 09 Patient Home Medication List Home Medication List Reviewed: Yes Review of Systems Constitutional: see HPI; No chills, No fever EENTM: No Symptoms Reported Respiratory: No Symptoms Reported Cardiovascular: See HPI, Chest Pain; Denies Edema Gastrointestinal: Denies Nausea, Denies Vomiting Genitourinary: No Symptoms Reported Musculoskeletal: no symptoms reported All Other Systems Reviewed Negative Unless Noted: Yes Past Tlsidto-Akotfw-Jploah Hx Past Med/Social Hx: Reviewed Nursing Past Med/Soc Hx Patient Social History Alcohol Use: Denies Use Recreational Drug Use: No Smoking Status: Current Everyday Smoker Type Used: Cigarettes 2nd Hand Smoke Exposure: Yes Recent Foreign Travel: No Contact w/Someone Who Travel: No Recent Infectious Disease Expo: No Recent Hopitalizations: No Physical Abuse: No Sexual Abuse: No Immunizations Up To Date Tetanus Booster (TDap): Unknown PED Vaccines UTD: No Date of Pneumonia Vaccine: September 09, 2016 Seasonal Allergies Seasonal Allergies: No Past Medical History Surgeries: Yes Breast, Section, Tubal Ligation Respiratory: No Currently Using CPAP: No Currently Using BIPAP: No Cardiac: Yes (Hx of stent to LAD.) Hypertension Neurological: Yes Neuropathy Reproductive Disorders: No Female Reproductive Disorders: Ovarian Cyst Sexually Transmitted Disease: No HIV/AIDS: No Genitourinary: No Gastrointestinal: No Musculoskeletal: Yes Chronic Back Pain Endocrine: Yes Diabetes, Insulin dep HEENT: No Loss of Vision: Denies Hearing Impairment: Denies Cancer: No Psychosocial: No Nursing Suicide Risk Score: 0 Integumentary: No Blood Disorders: No Adverse Reaction/Blood Tranf: No Family Medical History Reviewed Nursing Family Hx Cardiovascular disease 19 FATHER, Onset:Unknown 19 MOTHER, Onset:Unknown Diabetes mellitus 19 FATHER 19 MOTHER Other Conditions/Hx Physical Exam Vital Signs Vital Signs - First Documented 11/21/17 11/21/17 13:19 13:37 Temp 96.3 Pulse 101 Resp 17 B/P (MAP) 141/76 (97) Pulse Ox 99 O2 Delivery Room Air Capillary Refill : Less Than 3 Seconds Height, Weight, BMI Height: 5'2.00" Weight: 149lbs. 0.0oz. 67.063023ij; 27.4 BMI Method:Stated General Appearance: No Apparent Distress, WD/WN HEENT: PERRL/EOMI, Pharynx Normal Neck: Non Tender, Supple Respiratory: Lungs Clear, Normal Breath Sounds Cardiovascular: No Murmur, Tachycardia Gastrointestinal: Non Tender, Soft Extremity: Normal Range of Motion, Non Tender Neurologic/Psychiatric: Alert, Oriented x3 Skin: Normal Color, Warm/Dry Progress/Results/Core Measures Results/Orders Lab Results Laboratory Tests Test 11/21/17 13:33 Range/Units White Blood Count 9.2 4.3-11.0 10^3/uL Red Blood Count 5.07 4.35-5.85 10^6/uL Hemoglobin 13.8 11.5-16.0 G/DL Hematocrit 38 35-52 % Mean Corpuscular Volume 76 L 80-99 FL Mean Corpuscular Hemoglobin 27 25-34 PG Mean Corpuscular Hemoglobin Concent 36 32-36 G/DL Red Cell Distribution Width 14.7 H 10.0-14.5 % Platelet Count 312 130-400 10^3/uL Mean Platelet Volume 9.5 7.4-10.4 FL Neutrophils (%) (Auto) 51 42-75 % Lymphocytes (%) (Auto) 39 12-44 % Monocytes (%) (Auto) 7 0-12 % Eosinophils (%) (Auto) 3 0-10 % Basophils (%) (Auto) 0 0-10 % Neutrophils # (Auto) 4.7 1.8-7.8 X 10^3 Lymphocytes # (Auto) 3.6 1.0-4.0 X 10^3 Monocytes # (Auto) 0.6 0.0-1.0 X 10^3 Eosinophils # (Auto) 0.3 0.0-0.3 10^3/uL Basophils # (Auto) 0.0 0.0-0.1 10^3/uL Prothrombin Time 12.7 12.2-14.7 SEC INR Comment 1.0 0.8-1.4 Activated Partial Thromboplast Time 27 24-35 SEC Sodium Level 129 L 135-145 MMOL/L Potassium Level 4.1 3.6-5.0 MMOL/L Chloride Level 93 L 98-107 MMOL/L Carbon Dioxide Level 26 21-32 MMOL/L Anion Gap 10 5-14 MMOL/L Blood Urea Nitrogen 16 7-18 MG/DL Creatinine 0.81 0.60-1.30 MG/DL Estimat Glomerular Filtration Rate > 60 BUN/Creatinine Ratio 20 Glucose Level 397 H 70-105 MG/DL Calcium Level 10.0 8.5-10.1 MG/DL Corrected Calcium 9.9 8.5-10.1 MG/DL Magnesium Level 1.7 L 1.8-2.4 MG/DL Total Bilirubin 0.7 0.1-1.0 MG/DL Aspartate Amino Transf (AST/SGOT) 18 5-34 U/L Alanine Aminotransferase (ALT/SGPT) 28 0-55 U/L Alkaline Phosphatase 143 H 40-136 U/L Myoglobin 17.1 10.0-92.0 NG/ML Troponin I < 0.30 <0.30 NG/ML Total Protein 8.8 H 6.4-8.2 GM/DL Albumin 4.1 3.2-4.5 GM/DL Lipase 41 8-78 U/L My Orders Orders - NESSA MIJARES MD Cbc With Automated Diff (11/21/17 13:30) Magnesium (11/21/17 13:30) Chest 1 View, Ap/Pa Only (11/21/17 13:30) Ekg Tracing (11/21/17 13:30) Cardiac Profile 1 (11/21/17 13:30) Comprehensive Metabolic Panel (11/21/17 13:30) Myoglobin Serum (11/21/17 13:30) Protime With Inr (11/21/17 13:30) Partial Thromboplastin Time (11/21/17 13:30) O2 (11/21/17 13:30) Monitor-Rhythm Ecg Trace Only (11/21/17 13:30) Lipid Panel (11/22/17 06:00) Aspirin Chewable Tablet (Baby Aspirin Ch (11/21/17 13:30) Saline Lock/Iv-Start (11/21/17 13:30) Morphine Injection (Morphine Injection (11/21/17 13:39) Saline Lock/Iv-Start (11/21/17 13:40) Ns Iv 500 Ml (Sodium Chloride 0.9%) (11/21/17 13:40) Ct Angio Chest W (11/21/17 14:34) Iohexol Injection (Omnipaque 350 Mg/Ml 1 (11/21/17 14:45) Ns (Ivpb) (Sodium Chloride 0.9%) (11/21/17 14:45) Morphine Injection (Morphine Injection (11/21/17 14:43) Lipase (11/21/17 15:38) Lidocaine 2% Viscous 15 Ml (Xylocaine Vi (11/21/17 15:45) Antacid Suspension (Mylanta Suspension (11/21/17 15:45) Ns Iv 500 Ml (Sodium Chloride 0.9%) (11/21/17 15:48) Medications Given in ED Current Medications Medications Dose Ordered Sig/Tomasz Route Start Time Stop Time Status Last Admin Dose Admin Al Hydrox/Mg Hydrox/Simethicone 30 ml ONCE ONCE PO 11/21/17 15:45 11/21/17 15:46 DC 11/21/17 16:08 30 ML Iohexol 125 ml ONCE ONCE IV 11/21/17 14:45 11/21/17 14:46 DC 11/21/17 14:56 125 ML Lidocaine HCl 15 ml ONCE ONCE PO 11/21/17 15:45 11/21/17 15:46 DC 11/21/17 16:08 15 ML Sodium Chloride 250 ml ONCE ONCE IV 11/21/17 14:45 11/21/17 14:46 DC 11/21/17 14:56 80 ML Sodium Chloride 500 ml @ 0 mls/hr Q0M ONCE IV 11/21/17 13:40 11/21/17 13:41 DC 11/21/17 13:49 0 MLS/HR Sodium Chloride 500 ml @ 0 mls/hr Q0M ONCE IV 11/21/17 15:48 11/21/17 15:49 DC 11/21/17 16:08 500 MLS/HR Vital Signs/I&O 11/21/17 11/21/17 13:19 13:37 Temp 96.3 Pulse 101 Resp 17 B/P (MAP) 141/76 (97) Pulse Ox 99 O2 Delivery Room Air Room Air Blood Pressure Mean: 97 Progress Progress Note : Progress Note Seen and evaluated. IV, labs, EKG and chest x-ray ordered. ASA considered but patient reported taking this is poor and so canceled. Normal saline 500 mL bolus. Monitor patient. CT angiogram of the chest ordered as she had previous CT angiogram had abnormal findings. This pain continued despite 2 mg of morphine. Morphine was repeated at 5 mg IV and this did seem to help. Monitor patient. 1550: CT angios negative and improved from previous. I have added lipase and we will give another 500 mL of normal saline. Also will give GI cocktail. She has not started her GI medication that she is prescribed by Dr. Hernandez previously. I will discuss with Dr. Hernandez regarding findings as soon as lipase is complete. Continue to monitor patient. 1700: Lipase negative. I have discussed the case with Dr. Hernandez. We will have her continue the Protonix outpatient and follow up with her primary. No indication of cardiac event currently. Discharged home with return precautions. Patient verbalized understanding instructions and agreement with plan. Initial ECG Impression Date: Nov 21, 2017 Initial ECG Impression Time: 13:23 Initial ECG Rate: 109 Initial ECG Rhythm: S.Tach Initial ECG Comparisson: Unchanged Comment Sinus tachycardia with normal axis. No evidence of ST elevation DC. Similar to one done a few days ago. Interpreted by me. Diagnostic Imaging Diagonstic Imaging: Xray Plain Films/CT/US/NM/MRI: chest Comments NAME: BLAS QUEVEDO MED REC#: [id number] PT STATUS: REG ER : 1980 PHYSICIAN: NESSA MIJARES MD ADMIT DATE: 11/21/17/ER Signed Date of Exam: 11/21/17 CHEST 1 VIEW, AP/PA ONLY INDICATION: Chest pain. TIME OF EXAM: 02:25 p.m. Correlation is made with prior study from 11/17/2017. FINDINGS: The heart size is normal. The pulmonary vascularity is unremarkable. The lungs are clear. No infiltrate, effusion or pneumothorax is detected. IMPRESSION: No acute cardiopulmonary process is detected. Dictated by: Dictated on workstation # [id number] Dict: 11/21/17 1434 Trans: 11/21/17 1440 Interpreted by: ANGELICA JOYCE MD Electronically signed by: ANGELICA JOYCE MD 11/21/17 1440 Diagonstic Imaging: CT Plain Films/CT/US/NM/MRI: chest Comments NAME: BLAS QUE[facility]EDO [facility] REC#: [id number] PT STATUS: REG ER : 1980 PHYSICIAN: NESSA MIJARES MD ADMIT DATE: 11/21/17/ER Signed Date of Exam: 11/21/17 CT ANGIO CHEST W PROCEDURE: CT angiography of the chest with contrast. TECHNIQUE: Multiple contiguous axial images were obtained through the chest after uneventful bolus administration of intravenous contrast. Reconstructed CTA MIP acquisitions were also performed. INDICATION: Chest pain for three weeks, status post recent coronary artery stent placement. Comparison is made with prior CT chest from 10/28/2017. No thromboemboli are identified within the pulmonary arterial systems. No filling defects are seen within the central, lobar or segmental branches. Thoracic aorta is normal caliber. No dissection is seen. No pericardial fluid is seen. Trace bilateral pleural effusions noted on prior study have resolved. No axillary lymphadenopathy is seen. Mildly prominent lymph nodes in the mediastinum and nneka are again noted but appear improved and less prominent on this current exam. There has been significant improved appearance to the pulmonary parenchyma. Previously noted groundglass infiltrates and bibasilar consolidation has resolved. The upper abdomen is unremarkable. IMPRESSION: 1. No evidence of pulmonary embolism or thoracic aortic dissection. 2. Clearing of bilateral pulmonary infiltrates when compared with exam from 10/28/2017. No acute feature is detected. Dictated by: Dictated on workstation # [id number] Dict: 11/21/17 1521 Trans: 11/21/17 1531 Interpreted by: ANGELICA JOYCE MD Electronically signed by: ANGELICA JOYCE MD 11/21/17 1531 Departure Impression Primary Impression: Chest pain Qualified Codes: R07.9 - Chest pain, unspecified Additional Impression: Epigastric abdominal pain Disposition: 01 HOME, SELF-CARE Condition: Improved Departure-Patient Inst. Decision time for Depature: 17:02 Referrals: [facility] (PCP/Family) Primary Care Physician Patient Instructions: Acute Abdomen (Belly Pain), Adult (DC), Chest Pain (DC) Add. Discharge Instructions: All discharge instructions reviewed with patient and/or family. Voiced understanding. Continue home medications as directed and start taking the stomach medicine that you were prescribed. Follow-up with your Dr. in 2-3 days for recheck. Return for worsening, fever, vomiting, weakness, breathing problems or other concerns as needed. NESSA MIJARES MD Nov 21, 2017 14:03
[2017-11-21 14:08] LABS: ALANINE AMINOTRANSFERASE 28 U/L (0-55); ALBUMIN 4.1 GM/DL (3.2-4.5); ALKALINE PHOSPHATASE 143 U/L (40-136); BILIRUBIN,TOTAL 0.7 MG/DL (0.1-1.0); BUN/CREATININE RATIO 20; CARBON DIOXIDE 26 MMOL/L (21-32); CHLORIDE 93 MMOL/L (98-107); CREATININE SERUM 0.81 MG/DL (0.60-1.30); GFR ESTIMATED > 60; GLUCOSE 397 MG/DL (70-105); MAGNESIUM 1.7 MG/DL (1.8-2.4); POTASSIUM 4.1 MMOL/L (3.6-5.0); SODIUM 129 MMOL/L (135-145); TOTAL PROTEIN 8.8 GM/DL (6.4-8.2)
--- OUTSIDE RECORDS SUMMARY | 2017-11-21 14:14 | XMS REPORT ---
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 Active 688988487 Problem Elevated BUN R79.9 Active 201418601 Problem PVC (premature ventricular contraction) I49.3 Active 65382410 Problem Hyperlipidemia LDL goal <70 E78.5 Active 71537312 Problem Gastroesophageal reflux disease without esophagitis K21.9 Active 094720207 Problem Coronary artery disease involving [place] heart with angina pectoris, unspecified vessel or lesion type I25.119 Active 90800676 Problem Post-traumatic stress reaction F43.10 Active 38154120 Problem Essential hypertension I10 Active 81790599 Problem Atherosclerotic heart disease of [place] coronary artery without angina pectoris I25.10 Active 772769554 Problem Cigarette smoker F17.210 Active 26374087 ALLERGIES No Information ENCOUNTERS Encounter Location Date Diagnosis [facility], [place] [id number] [place] [phone] Nov, [facility] [place] [id number] [place] [phone] Nov, [facility] [place] [id number] [place] [address] [phone][phone] Oct, Type 2 diabetes mellitus with diabetic polyneuropathy E11.42 [facility] [place] [id number] [place] [address] [phone] Oct, Diarrhea, unspecified type R19.7 ; Gastroesophageal reflux disease without esophagitis K21.9 and Vaginal discharge N89.8 [facility], [place] [id number] [place] [address] 34704- 1497 Oct, Type 2 diabetes mellitus with diabetic polyneuropathy E11.42 [facility], [place] [id number] [place] [address] [phone]- 2908 Oct, Hyperlipidemia LDL goal <70 E78.5 [place] [address] [address] Oct, Atherosclerotic heart disease of [place] coronary artery without angina pectoris I25.10 ; Coronary artery disease involving [place] heart with angina pectoris, unspecified vessel or lesion type I25.119 ; Type 2 diabetes mellitus with diabetic polyneuropathy E11.42 ; Hyperlipidemia LDL goal <70 E78.5 ; Cigarette smoker F17.210 and Post-traumatic stress reaction F43.10 [place] [id number] [place] [address]- [address] Oct, [place] [id number] [place] [address] [phone]- [phone] Oct, Difficulty breathing R06.89 ; Hospital discharge follow-up Z09 and Bilateral lower extremity edema R60.0 [place] [id number] [place] [address] [phone]- [phone] Oct, [facility] [id number] [place] [phone] -[phone] Oct, Dependent edema R60.9 [facility], [place] [id number] [place] [address] [phone] Oct, [facility] [place] [id number] [place] [address] [phone]- [phone] Oct, [place] [address] [address] Oct, Type 2 diabetes mellitus with diabetic polyneuropathy E11.42 [place] [id number] [place] [address] [phone]- [phone] Oct, [facility], [place] [address] [address] Sep, [facility], [place] [id number] [address] August, [facility], [place] [address] [place] [address] Jul, [facility], [place] [id number] [place] [address] [phone]- [address] Jul, Establishing care with new doctor, encounter for Z76.89 ; Type 2 diabetes mellitus with diabetic polyneuropathy E11.42 ; long-term 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 Z79.4 ; Hyperlipidemia LDL goal <70 E78.5 ; Essential hypertension I10 and Chest pain, unspecified type R07.9 [facility], [place] [address] [address] Jul, [facility], [place] [id number] [place] [address] [phone][phone] Jul, [facility], [place] [address] [place] [address] Jun, [facility], [place] [id number] [place] [address] [phone][address] [phone] Jun, [facility], [place] [address] [address] Jun, [facility], [place] [address] [address] Jun, Acute hyperglycemia R73.9 ; Type 2 diabetes mellitus with diabetic polyneuropathy E11.42 ; 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.4 ; HTN, goal below 130/80 I10 and Hyperlipidemia LDL goal <70 E78.5 [facility] [address] [place] [address] August, [facility] [address] [place] [address] August, [facility] [address] [facility] [id number] [place] [address] August, Acute vaginitis N76.0 ; Trichomonas vaginitis A59.01 and Vaginal discharge N89.8 IMMUNIZATIONS No Known Immunizations SOCIAL HISTORY Never Assessed REASON FOR VISIT Rx per lab PLAN OF CARE VITAL SIGNS MEDICATIONS Medication Instructions Dosage Frequency Start Date End Date Duration Status Lisinopril 5 mg Orally Once a day 1 tablet 24h Jul, 30 day(s) Active RESULTS No Results PROCEDURES No Known procedures INSTRUCTIONS MEDICATIONS ADMINISTERED No Known Medications MEDICAL (GENERAL) HISTORY Type Description Date Medical History Type 2 diabetes mellitus with diabetic polyneuropathy 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
--- OUTSIDE RECORDS SUMMARY | 2017-11-21 14:14 | XMS REPORT | Clinical Summary ---
Author Author [facility] Organization [facility] Address Unknown Phone Unavailable Care Team Providers Care Serology Teacher Name Role Phone Alfred Diaz MD PCP Unavailable Source Comments Some departments are not documenting in the electronic medical record. If you do not see the information that you expected, contact Release of Information in the Health Information Management department at [phone] for further assistance in locating additional records.[facility] Allergies Not on File Current Medications Not [...]
[2017-11-21 14:17] LABS: MYOGLOBIN SERUM 17.1 NG/ML (10.0-92.0)
--- NOTE | 2017-11-21 14:37 | Diagnostic Imaging Report ---
INDICATION: Chest pain. TIME OF EXAM: 02:25 p.m. Correlation is made with prior study from 11/17/2017. FINDINGS: The heart size is normal. The pulmonary vascularity is unremarkable. The lungs are clear. No infiltrate, effusion or pneumothorax is detected. IMPRESSION: No acute cardiopulmonary process is detected. Dictated by: Dictated on workstation # [id number]
[2017-11-21] MEDS ORDERED: IOHEXOL 350 MG/ML 150 ML (OMNIPAQUE 350) VIAL IV ONE (14:45)
[2017-11-21] MEDS ORDERED: NS 250 ML (IVPB) BAG IV ONE (14:45)
--- NOTE | 2017-11-21 15:28 | Diagnostic Imaging Report ---
PROCEDURE: CT angiography of the chest with contrast. TECHNIQUE: Multiple contiguous axial images were obtained through the chest after uneventful bolus administration of intravenous contrast. Reconstructed CTA MIP acquisitions were also performed. INDICATION: Chest pain for three weeks, status post recent coronary artery stent placement. Comparison is made with prior CT chest from 10/28/2017. No thromboemboli are identified within the pulmonary arterial systems. No filling defects are seen within the central, lobar or segmental branches. Thoracic aorta is normal caliber. No dissection is seen. No pericardial fluid is seen. Trace bilateral pleural effusions noted on prior study have resolved. No axillary lymphadenopathy is seen. Mildly prominent lymph nodes in the mediastinum and nneka are again noted but appear improved and less prominent on this current exam. There has been significant improved appearance to the pulmonary parenchyma. Previously noted groundglass infiltrates and bibasilar consolidation has resolved. The upper abdomen is unremarkable. IMPRESSION: 1. No evidence of pulmonary embolism or thoracic aortic dissection. 2. Clearing of bilateral pulmonary infiltrates when compared with exam from 10/28/2017. No acute feature is detected. Dictated by: Dictated on workstation # [id number]
[2017-11-21] MEDS ORDERED: LIDOCAINE 2% VISCOUS 15 ML UDC PO ONE (15:45)
[2017-11-21] MEDS ORDERED: ANTACID SUSP 30 ML UDC (MYLANTA) PO ONE (15:45)
[2017-11-21 17:13] VITALS: BP 130/97
== END 2017-11-21 17:13 | disposition home or self-care (01) ==
LOC: EDUNIT# 13:16 → ER 13:17
DX: R07.89 Other chest pain (principal); R10.13 Epigastric pain; E11.9 Type 2 diabetes mellitus without complications; I10 Essential (primary) hypertension; F17.210 Nicotine dependence, cigarettes, uncomplicated; Z87.59 Personal history of other complications of pregnancy, childbirth and the puerperium; Z95.5 Presence of coronary angioplasty implant and graft; Z82.49 Family history of ischemic heart disease and other diseases of the circulatory system; Z87.448 Personal history of other diseases of urinary system; Z88.8 Allergy status to other drugs, medicaments and biological substances; Z98.51 Tubal ligation status; Z79.51 Long term (current) use of inhaled steroids; Z79.82 Long term (current) use of aspirin; Z79.4 Long term (current) use of insulin
CPT/HCPCS: 36415; 71045; 71275; 80053; 83690; 83735; 83874; 84484; 85025; 85610; 85730; 93005; 93041; 96361; 96374; 96376

== ENCOUNTER 2017-12-22 23:24 | Emergency (ER) | payer SELFPAY ==
[~2017-12-22] VITALS: Ht 157.5 cm; Wt 68.0 kg
[~2017-12-22 23:24] MED LIST changes: +LISI-556 PO; +METF-399 PO; -METF10002 PO; +RANO500T3 PO
--- OUTSIDE RECORDS SUMMARY | 2017-12-22 23:28 | XMS REPORT ---
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 Active 5147842668502 Problem Gastroesophageal reflux disease without esophagitis K21.9 Active 345855771 Problem Coronary artery disease involving [place] heart with angina pectoris, unspecified vessel or lesion type I25.119 Active 97214676 Problem Moderate episode of recurrent major depressive disorder F33.1 Active 290358765 Problem PTSD (post-traumatic stress disorder) F43.10 Active 90766546 Problem Hyperlipidemia LDL goal <70 E78.5 Active 39116556 Problem Type 2 diabetes mellitus with diabetic polyneuropathy E11.42 Active 35195737 Problem PVC (premature ventricular contraction) I49.3 Active 78440502 Problem long-term 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 Z79.4 Active 140996186 Problem Elevated BUN R79.9 Active 498748252 Problem Essential hypertension I10 Active 03060638 ALLERGIES No Information ENCOUNTERS Encounter Location Date Diagnosis [facility] [address], [place] [address] Dec, [facility] [address] [place] [address] 4131 Dec, [facility] [address], [place] [address] Dec, [place] [address] [place] [id number] [place] [address] Nov, [place] [address] [address] Nov, PTSD (post-traumatic stress disorder) F43.10 and Moderate episode of recurrent major depressive disorder F33.1 [place] [id number] [place] [address] 03589- 8887 Nov, Chest pain, unspecified type R07.9 ; 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 ; Restless leg syndrome G25.81 ; Hospital discharge follow-up Z09 and Type 2 diabetes mellitus with diabetic polyneuropathy E11.42 [place] [id number] [place] [address] 70223- 5125 Nov, Hyperlipidemia LDL goal <70 E78.5 [place] [address] [address]- [address] 14 Nov, 2017 Hospital discharge follow-up Z09 ; Chest pain, unspecified type R07.9 ; 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9 and Vaginal discharge N89.8 [place] [address] [id number] [place] [address] 06393- 4900 Oct, Type 2 diabetes mellitus with diabetic polyneuropathy E11.42 [place] [address] [place] [address] 66590- 5863 Oct, Hyperlipidemia LDL goal <70 E78.5 [facility] [id number] [place] [address] 37952- 6527 Oct, Atherosclerotic heart disease of [place] coronary artery without angina pectoris I25.10 ; Coronary artery disease involving [place] heart with angina pectoris, unspecified vessel or lesion type I25.119 ; Type 2 diabetes mellitus with diabetic polyneuropathy E11.42 ; Hyperlipidemia LDL goal <70 E78.5 ; Cigarette smoker F17.210 and Post-traumatic stress reaction F43.10 [place] [address] [id number] [place] [address] 53680- 0353 Oct, [facility] [id number] [place] [address] 21431- 5571 Oct, Difficulty breathing R06.89 ; Hospital discharge follow-up Z09 and Bilateral lower extremity edema R60.0 [facility] [id number] [place] [address] 15278- 8601 Oct, [facility] [id number] [place] [address] 47088 -8698 Oct, Dependent edema R60.9 [facility] [address] [id number] [place] [address] 40497- 5313 Oct, [facility] [id number] [place] [address] 00245- 2398 Oct, [facility] [id number] [place] [address] 49400- 5768 Oct, Type 2 diabetes mellitus with diabetic polyneuropathy E11.42 [facility] [id number] [place] [address] 32897- 7975 Oct, [facility] [id number] [place] [address] 75297- 5019 Sep, [facility] [id number] [place] [address] 66918- 6603 August, [facility] [address] [address] Jul, [facility] [id number] [place] [address] 91855- 8666 Jul, Establishing care with new doctor, encounter for Z76.89 ; Type 2 diabetes mellitus with diabetic polyneuropathy E11.42 ; 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 Z79.4 ; Hyperlipidemia LDL goal <70 E78.5 ; Essential hypertension I10 and Chest pain, unspecified type R07.9 [facility] [address] [address] Jul, [facility] [id number] [place] [address] 72049- 1606 Jul, [facility] [id number] [place] [address] 04719- 7504 Jun, [facility] [id number] [place] [address] 76053- 7485 Jun, [facility] [id number] [place] [address] 33544- 9458 Jun, [facility] [id number] [place] [address] 61198- 9603 Jun, Acute hyperglycemia R73.9 ; Type 2 diabetes mellitus with diabetic polyneuropathy E11.42 ; long-term 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 Z79.4 ; HTN, goal below 130/80 I10 and Hyperlipidemia LDL goal <70 E78.5 [facility] [address], [place] [address] August, [facility] [id number] [place] [address] 01022 -8027 August, [facility] [address] [place] [address] 41608 -1173 August, Acute vaginitis N76.0 ; Trichomonas vaginitis A59.01 and Vaginal discharge N89.8 IMMUNIZATIONS No Known Immunizations SOCIAL HISTORY Never Assessed REASON FOR VISIT Referral PLAN OF CARE VITAL SIGNS MEDICATIONS Unknown Medications RESULTS No Results PROCEDURES No Known procedures INSTRUCTIONS MEDICATIONS ADMINISTERED No Known Medications MEDICAL (GENERAL) HISTORY Type Description Date Medical History Type 2 diabetes mellitus with diabetic polyneuropathy Medical History 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 Medical History HTN, goal below 130/80 Medical History Hyperlipidemia LDL goal <70 Medical History Left Lower Nodule 9mm stable Surgical History C-Sectionx3 Surgical History Left breast surgery for yeast Surgical History Tubal Ligation Surgical History Cardiac Cath 12/03/2017 Hospitalization History Surgers/Child Hospitalization History ER visit for Hyperglycemia 10/16/2017 Hospitalization History surgery angio 10/25/2017 Hospitalization History chest pain- observation ICU 11/16/17 Hospitalization History Chest pain/Hyperglycemia [facility] x1 night 11/22/17 Hospitalization History Chest pain 12/03/2017
--- OUTSIDE RECORDS SUMMARY | 2017-12-22 23:28 | XMS REPORT ---
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 Active 3861278026109 Problem Gastroesophageal reflux disease without esophagitis K21.9 Active 102630441 Problem Coronary artery disease involving [place] heart with angina pectoris, unspecified vessel or lesion type I25.119 Active 95073434 Problem Moderate episode of recurrent major depressive disorder F33.1 Active 551521195 Problem PTSD (post-traumatic stress disorder) F43.10 Active 44462825 Problem Hyperlipidemia LDL goal <70 E78.5 Active 74814671 Problem Type 2 diabetes mellitus with diabetic polyneuropathy E11.42 Active 72355316 Problem PVC (premature ventricular contraction) I49.3 Active 40758060 Problem 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 Active 886637861 Problem Elevated BUN R79.9 Active 241319666 Problem Essential hypertension I10 Active 33305356 ALLERGIES Substance Reaction Event Type Date Status Adhesive Bandages Unknown Drug Allergy Oct, Active Toradol Unknown Non Drug Allergy Oct, Active ENCOUNTERS Encounter Location Date Diagnosis [facility] [address] [facility] [id number] [address] Dec, [facility] [address] [place] [id number] [address] Dec, [facility] [id number] [place] [address] 74275- 1597 Dec, [place] [address] [address] [id number] [place] [address] 11664- 8207 Dec, Uncontrolled type 2 diabetes mellitus with hyperglycemia E11.65 and Flatulence/gas pain/belching R14.0 [place] [address] [address] [id number] [place] [address] 55089- 6322 Nov, [place] [address] [address]- 8649 Nov, PTSD (post-traumatic stress disorder) F43.10 and Moderate episode of recurrent major depressive disorder F33.1 [place] [address] [address] [id number] [place] [address] 90991- 0770 Nov, Chest pain, unspecified type R07.9 ; 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 ; Restless leg syndrome G25.81 ; Hospital discharge follow-up Z09 and Type 2 diabetes mellitus with diabetic polyneuropathy E11.42 [place] [address] [address] [id number] [place] [address] 69548- 7433 Nov, Hyperlipidemia LDL goal <70 E78.5 [place] [address] [address] [id number] [place] [address] 30557- 3029 14 Nov, 2017 Hospital discharge follow-up Z09 ; Chest pain, unspecified type R07.9 ; 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 and Gastroesophageal reflux disease without esophagitis K21.9 [place] [address] [address] [id number] [place] [address] 87309- 0154 07 Nov, 2017 PTSD (post-traumatic stress disorder) F43.10 and Moderate episode of recurrent major depressive disorder F33.1 [place] [address] [address] [id number] [place] [address] 00819- 3309 Oct, Type 2 diabetes mellitus with diabetic polyneuropathy E11.42 [place] [address] [address] [id number] [place] [address] 88425- 2426 Oct, Diarrhea, unspecified type R19.7 ; Gastroesophageal reflux disease without esophagitis K21.9 and Vaginal discharge N89.8 [place] [address] [address] [id number] [place] [address] 63909- 8035 Oct, Type 2 diabetes mellitus with diabetic polyneuropathy E11.42 [place] [address] [place] [id number] [place] [address] 94783- 5721 Oct, Hyperlipidemia LDL goal <70 E78.5 [place] [address] [address] [id number] [place] [address] 92126- 3666 Oct, Atherosclerotic heart disease of [place] coronary artery without angina pectoris I25.10 ; Coronary artery disease involving [place] heart with angina pectoris, unspecified vessel or lesion type I25.119 ; Type 2 diabetes mellitus with diabetic polyneuropathy E11.42 ; Hyperlipidemia LDL goal <70 E78.5 ; Cigarette smoker F17.210 and Post-traumatic stress reaction F43.10 [place] [address] [id number] [place] [address] 37665- 9419 Oct, [place] [address] [address] [id number] [place] [address] 79235- 9600 Oct, Difficulty breathing R06.89 ; Hospital discharge follow-up Z09 and Bilateral lower extremity edema R60.0 [place] [address] [place] [id number] [place] [address] 42307- 1278 Oct, [facility] [id number] [place] [address] 88059 -6150 Oct, Dependent edema R60.9 [facility] [address] [place] [address] [id number] [place] [address] 69488- 6131 Oct, [place] [address] [place] [address] [id number] [place] [address] 53141- 1172 Oct, [place] [address] [address] [id number] [place] [address] 18464- 8874 Oct, Type 2 diabetes mellitus with diabetic polyneuropathy E11.42 [place] [address] Oct, [facility] [address] [address]- 9232 Sep, [facility] [address] [address]- 7283 August, [facility] [address] [address]- 8737 Jul, [facility] [address] [address]- 5358 Jul, Establishing care with new doctor, encounter for Z76.89 ; Type 2 diabetes mellitus with diabetic polyneuropathy E11.42 ; care home 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 Z79.4 ; Hyperlipidemia LDL goal <70 E78.5 ; Essential hypertension I10 and Chest pain, unspecified type R07.9 [facility] [address] [address]- 2710 Jul, [facility] [address] [address]- 6847 Jul, [facility] [address] [address]- 2123 Jun, [facility] [address] [address]- 8749 Jun, [facility] [address] [address]- 2327 Jun, [facility] [address] [place] [id number] [address]- 5633 Jun, Acute hyperglycemia R73.9 ; Type 2 diabetes mellitus with diabetic polyneuropathy E11.42 ; 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 ; HTN, goal below 130/80 I10 and Hyperlipidemia LDL goal <70 E78.5 [facility] [id number] [address] August, [facility] [address] [address] August, [facility] [address] [facility] [id number] [address] August, Acute vaginitis N76.0 ; Trichomonas vaginitis A59.01 and Vaginal discharge N89.8 IMMUNIZATIONS No Known Immunizations SOCIAL HISTORY Never Assessed REASON FOR VISIT Hospital f/u, PT reports she went to the hospital due to swelling and unable to breathe. PT notes they treated her for pneumonia but has since then worsened - [facility] PLAN OF CARE Activity Details Follow Up prn Reason: VITAL SIGNS Height 62 in 2017-10-25 Weight 168.8 lbs 2017-10-25 Temperature 98.7 degrees Fahrenheit 2017-10-25 Heart Rate 118 bpm 2017-10-25 Respiratory Rate 20 2017-10-25 Oximetry on room air:91 % 2017-10-25 BMI 30.87 kg/m2 2017-10-25 Blood pressure systolic 130 mmHg 2017-10-25 Blood pressure diastolic 72 mmHg 2017-10-25 MEDICATIONS Medication Instructions Dosage Frequency Start Date End Date Duration Status Levemir FlexTouch 100 UNIT/ML Subcutaneous 2 times a day 15 Units 12h Active Humalog KwikPen 100 UNIT/ML Subcutaneous 3 times a day Inject 10 Units with meals 8h Active Blood Glucose Test Strip Test Strips One Touch Verio strip and Delica lancet 3 times a day test blood sugar 8h Jun, 30 days Not-Taking Pen Climax 31G X 6 MM Active Blood Glucose Monitor System w/Device as directed Jun, Active Metformin HCl 1000 MG Orally Twice a day 1 tablet with meals 12h 30 days Not-Taking Lisinopril 5 mg Orally Once a day 1 tablet 24h Jul, 30 day(s) Not-Taking Fluoxetine HCl 20 MG Orally Once a day 1 capsule in the morning 24h Not-Taking Labetalol HCl 100 mg Orally 2 times a day 1 tablet 12h 30 days Active Lasix 20 mg Orally Once a day 1 tablet 24h Oct, 03 days Not- Taking Atorvastatin Calcium 80 MG Orally Once a day 1 tablet 24h 30 days Active Naproxen Sodium 220 MG Orally every 12 hrs 1 tablet with food or milk as needed 12h Active RESULTS Name Result Date Reference Range Xray : Chest 2 View (IN HOUSE) 2017-10-25 PROCEDURES Procedure Date Ordered Result Body Site X-RAY EXAM CHEST 2 VIEWS October 25, 2017 INSTRUCTIONS MEDICATIONS ADMINISTERED No Known Medications MEDICAL (GENERAL) HISTORY Type Description Date Medical History Type 2 diabetes mellitus with diabetic polyneuropathy 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
--- OUTSIDE RECORDS SUMMARY | 2017-12-22 23:28 | XMS REPORT | Clinical Summary ---
Author Author [facility] Organization [facility] Address Unknown Phone Unavailable Care Team Providers Care Insurance Marketing Rep Name Role Phone Alfred Diaz MD PCP Unavailable Source Comments Some departments are not documenting in the electronic medical record. If you do not see the information that you expected, contact Release of Information in the Health Information Management department at [phone] for further assistance in locating additional records.[facility] Allergies Not on File Current Medications [...]
--- OUTSIDE RECORDS SUMMARY | 2017-12-22 23:29 | XMS REPORT ---
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 Active 5194135796336 Problem Gastroesophageal reflux disease without esophagitis K21.9 Active 618547951 Problem Coronary artery disease involving eagle heart with angina pectoris, unspecified vessel or lesion type I25.119 Active 42727372 Problem Moderate episode of recurrent major depressive disorder F33.1 Active 064354498 Problem PTSD (post-traumatic stress disorder) F43.10 Active 69729677 Problem Hyperlipidemia LDL goal <70 E78.5 Active 38200872 Problem Type 2 diabetes mellitus with diabetic polyneuropathy E11.42 Active 05133632 Problem PVC (premature ventricular contraction) I49.3 Active 60959170 Problem FPC 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 Z79.4 Active 021090763 Problem Elevated BUN R79.9 Active 837907282 Problem Essential hypertension I10 Active 99300458 ALLERGIES No Information ENCOUNTERS Encounter Location Date Diagnosis [facility] [id number] [address] Dec, [facility] [id number] [place] [address]965[address]289 Dec, [facility] [address] [address] Dec, [place] [id number] [place] [address]30[address] 5516 Nov, [place] [address] [address] Nov, PTSD (post-traumatic stress disorder) F43.10 and Moderate episode of recurrent major depressive disorder F33.1 [place] [id number] [place] [address] 10323- 3285 Nov, Chest pain, unspecified type R07.9 ; 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 ; Restless leg syndrome G25.81 ; Hospital discharge follow-up Z09 and Type 2 diabetes mellitus with diabetic polyneuropathy E11.42 [facility] [place] [id number] [place] [address] 18822- 3046 Nov, Hyperlipidemia LDL goal <70 E78.5 [facility] [address] [address]54- [address] 14 Nov, 2017 Hospital discharge follow-up Z09 ; Chest pain, unspecified type R07.9 ; 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 and Gastroesophageal reflux disease without esophagitis K21.9 [facility] [place] [id number] [place] [address] 15096- 3305 Nov, PTSD (post-traumatic stress disorder) F43.10 and Moderate episode of recurrent major depressive disorder F33.1 [facility] [place] [id number] [place] [address] 60278- 8754 Oct, Type 2 diabetes mellitus with diabetic polyneuropathy E11.42 [facility] [place] [id number] [place] [address] 25232- 3936 Oct, Diarrhea, unspecified type R19.7 ; Gastroesophageal reflux disease without esophagitis K21.9 and Vaginal discharge N89.8 [facility] [place] [id number] [place] [address] 26251- 5656 Oct, Type 2 diabetes mellitus with diabetic polyneuropathy E11.42 [place] [address] [place] [address] 30356- 5026 Oct, Hyperlipidemia LDL goal <70 E78.5 [facility] [id number] [place] [address] 70796- 9452 Oct, 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 ; Coronary artery disease involving eagle heart with angina pectoris, unspecified vessel or lesion type I25.119 ; Type 2 diabetes mellitus with diabetic polyneuropathy E11.42 ; Hyperlipidemia LDL goal <70 E78.5 ; Cigarette smoker F17.210 and Post-traumatic stress reaction F43.10 [facility] [place] [id number] [place] [address] 59368- 9182 Oct, [facility] [id number] [place] [address] 15353- 2155 Oct, Difficulty breathing R06.89 ; Hospital discharge follow-up Z09 and Bilateral lower extremity edema R60.0 [facility] [id number] [place] [address] 80972- 9293 Oct, [facility] [id number] [place] [address] 56995 -7282 Oct, Dependent edema R60.9 [facility] [id number] [place] [address] 55231- 7930 Oct, [facility] [id number] [place] [address] 23258- 7109 Oct, [facility] [id number] [place] [address] 33764- 3507 Oct, Type 2 diabetes mellitus with diabetic polyneuropathy E11.42 [facility] [id number] [place] [address] 99789- 4192 Oct, [facility] [id number] [place] [address] 16133- 2656 Sep, [facility] [id number] [place] [address] 12183- 6793 August, [facility] [address] [address] Jul, [facility] [id number] [place] [address] 73550- 5808 Jul, Establishing care with new doctor, encounter for Z76.89 ; Type 2 diabetes mellitus with diabetic polyneuropathy E11.42 ; long term care pharmacist 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 Z79.4 ; Hyperlipidemia LDL goal <70 E78.5 ; Essential hypertension I10 and Chest pain, unspecified type R07.9 [facility] [id number] [address] Jul, [facility] [id number] [place] [address] 71887- 6782 Jul, [facility] [id number] [place] [address] 37439- 2256 Jun, [facility] [id number] [place] [address] 83536- 6229 Jun, [facility] [id number] [place] [address] 23772- 9250 Jun, [facility] [id number] [place] [address] 25816- 3267 Jun, Acute hyperglycemia R73.9 ; Type 2 diabetes mellitus with diabetic polyneuropathy E11.42 ; FPC 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 Z79.4 ; HTN, goal below 130/80 I10 and Hyperlipidemia LDL goal <70 E78.5 [facility] [address] [address] August, [facility] [id number] [place] [address] 56869 [address]8391 August, [facility] [address] [place] [address] 11346 -6199 August, Acute vaginitis N76.0 ; Trichomonas vaginitis A59.01 and Vaginal discharge N89.8 IMMUNIZATIONS No Known Immunizations SOCIAL HISTORY Never Assessed REASON FOR VISIT Phone call PLAN OF CARE VITAL SIGNS MEDICATIONS Unknown Medications RESULTS No Results PROCEDURES No Known procedures INSTRUCTIONS MEDICATIONS ADMINISTERED No Known Medications MEDICAL (GENERAL) HISTORY Type Description Date Medical History Type 2 diabetes mellitus with diabetic polyneuropathy Medical History long term care pharmacist 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
--- OUTSIDE RECORDS SUMMARY | 2017-12-22 23:29 | XMS REPORT ---
Author Author NEW LE Organization [facility] Address [address] [place] [address] Care Team Providers Care Nurse Sexual Assault Name Role Phone NEW LE Unavailable PROBLEMS Type Condition ICD9-CM Code LFW20-TA Code Onset Dates Condition Status SNOMED Code Problem Chest pain, unspecified type R07.9 Active 45974501 Problem Atherosclerotic heart disease of minto coronary artery without angina pectoris I25.10 Active 850048513 Problem Cigarette smoker F17.210 Active 48470428 Problem Restless leg syndrome G25.81 Active 41241526 Problem Coronary artery disease involving minto coronary artery of minto heart with angina pectoris I25.119 Active 7487936762030 Problem Gastroesophageal reflux disease without esophagitis K21.9 Active 059381610 Problem Coronary artery disease involving minto heart with angina pectoris, unspecified vessel or lesion type I25.119 Active 17672379 Problem Moderate episode of recurrent major depressive disorder F33.1 Active 402557983 Problem PTSD (post-traumatic stress disorder) F43.10 Active 25966559 Problem Hyperlipidemia LDL goal <70 E78.5 Active 67189708 Problem Type 2 diabetes mellitus with diabetic polyneuropathy E11.42 Active 78997242 Problem PVC (premature ventricular contraction) I49.3 Active 63732403 Problem terminal carman 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 Z79.4 Active 064262883 Problem Elevated BUN R79.9 Active 528629187 Problem Essential hypertension I10 Active 17771265 ALLERGIES No Information ENCOUNTERS Encounter Location Date Diagnosis [facility] [address], [place] [address] Dec, [facility] [id number], [place] [address] Dec, [facility] [id number], [place] [address] Dec, [facility] [id number] [place] [address] 62231- 1738 Nov, [place] [address] [address]83- 1837 Nov, PTSD (post-traumatic stress disorder) F43.10 and Moderate episode of recurrent major depressive disorder F33.1 [place] [address] 087[address]- 1178 Nov, Chest pain, unspecified type R07.9 ; Coronary artery disease involving minto coronary artery of minto heart with angina pectoris I25.119 ; Restless leg syndrome G25.81 ; Hospital discharge follow-up Z09 and Type 2 diabetes mellitus with diabetic polyneuropathy E11.42 [place] [id number] [place] [address] 36031- 1170 Nov, Hyperlipidemia LDL goal <70 E78.5 [place] [address] 27428- 7603 14 Nov, 2017 Hospital discharge follow-up Z09 ; Chest pain, unspecified type R07.9 ; Coronary artery disease involving minto coronary artery of minto heart with angina pectoris I25.119 and Gastroesophageal reflux disease without esophagitis K21.9 [place] [id number] [place] [address] 24074- 1781 Nov, PTSD (post-traumatic stress disorder) F43.10 and Moderate episode of recurrent major depressive disorder F33.1 [place] [id number] [place] [address] 62033- 1846 Oct, Type 2 diabetes mellitus with diabetic polyneuropathy E11.42 [place] [place] [id number] [place] [address] 79772- 8889 Oct, Diarrhea, unspecified type R19.7 ; Gastroesophageal reflux disease without esophagitis K21.9 and Vaginal discharge N89.8 [place] [id number] [place] [address] 68215- 1245 Oct, Type 2 diabetes mellitus with diabetic polyneuropathy E11.42 [facility] [place] [address], [place] [address]- 2185 Oct, Hyperlipidemia LDL goal <70 E78.5 [facility] [id number] [place] [address] 91634- 7051 Oct, Atherosclerotic heart disease of minto coronary artery without angina pectoris I25.10 ; Coronary artery disease involving minto heart with angina pectoris, unspecified vessel or lesion type I25.119 ; Type 2 diabetes mellitus with diabetic polyneuropathy E11.42 ; Hyperlipidemia LDL goal <70 E78.5 ; Cigarette smoker F17.210 and Post-traumatic stress reaction F43.10 [place] [id number] [place] [address] 20076- 0995 Oct, [facility] [id number] [place] [address] 99234- 2743 Oct, Difficulty breathing R06.89 ; Hospital discharge follow-up Z09 and Bilateral lower extremity edema R60.0 [place] [id number] [place] [address] 84260- 6545 Oct, [facility] [id number] [place] [address] 89527 -5254 Oct, Dependent edema R60.9 [facility] [id number] [place] [address] 43019- 7103 Oct, [place] [id number] [place] [address] 30522- 7608 Oct, [facility] [id number] [place] [address] 15783- 1238 Oct, Type 2 diabetes mellitus with diabetic polyneuropathy E11.42 [facility] [id number] [place] [address] 66736- 0129 Oct, [facility] [id number] [place] [address] 98190- 3429 Sep, [facility] [id number] [place] [address] 56995- 3776 August, [facility] [address], [place] [address]- 8256 Jul, [facility] [id number] [place] [address] 00823- 4106 Jul, Establishing care with new doctor, encounter for Z76.89 ; Type 2 diabetes mellitus with diabetic polyneuropathy E11.42 ; terminal carman 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 Z79.4 ; Hyperlipidemia LDL goal <70 E78.5 ; Essential hypertension I10 and Chest pain, unspecified type R07.9 [facility] [address], [place] [address]- 2676 Jul, [facility] [id number] [place] [address] 99443- 2732 Jul, [facility] [id number] [place] [address] 04110- 3812 Jun, [facility] [id number] [place] [address]- 8068 Jun, [facility] [id number], [place] [address]- 7899 Jun, [facility] [address], [place] [address]- 4760 Jun, Acute hyperglycemia R73.9 ; Type 2 diabetes mellitus with diabetic polyneuropathy E11.42 ; custodial 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 Z79.4 ; HTN, goal below 130/80 I10 and Hyperlipidemia LDL goal <70 E78.5 [facility] [address], [place] [address] August, [facility] [address], [place] [address] August, [facility] [address] [place] [id number] [address] August, Acute vaginitis N76.0 ; Trichomonas vaginitis A59.01 and Vaginal discharge N89.8 IMMUNIZATIONS No Known Immunizations SOCIAL HISTORY Never Assessed REASON FOR VISIT Hospital Discharge PLAN OF CARE VITAL SIGNS MEDICATIONS Unknown Medications RESULTS No Results PROCEDURES No Known procedures INSTRUCTIONS MEDICATIONS ADMINISTERED No Known Medications MEDICAL (GENERAL) HISTORY Type Description Date Medical History Type 2 diabetes mellitus with diabetic polyneuropathy Medical History custodial 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
--- OUTSIDE RECORDS SUMMARY | 2017-12-22 23:29 | XMS REPORT ---
Author Author BRANNON COLLINS [facility] IN [facility] Address [address] [place] [address] Care Team Providers Care Refrigerating Oiler Name Role Phone BRANNON COLLINS Unavailable PROBLEMS Type Condition ICD9-CM Code [id number] Code Onset Dates Condition Status SNOMED Code Problem Chest pain, unspecified type R07.9 Active 38392523 Problem Atherosclerotic heart disease of [place] coronary artery without angina pectoris I25.10 Active 954061491 Problem Cigarette smoker F17.210 Active 83607308 Problem Restless leg syndrome G25.81 Active 54877658 Problem Coronary artery disease involving tang[place]q coronary artery of tang[place] heart with angina pectoris I25.119 Active 9840738133666 Problem Gastroesophageal reflux disease without esophagitis K21.9 Active 530741294 Problem Coronary artery disease involving [place] heart with angina pectoris, unspecified vessel or lesion type I25.119 Active 88188287 Problem Moderate episode of recurrent major depressive disorder F33.1 Active 000089965 Problem PTSD (post-traumatic stress disorder) F43.10 Active 03414687 Problem Hyperlipidemia LDL goal <70 E78.5 Active 14683727 Problem Type 2 diabetes mellitus with diabetic polyneuropathy E11.42 Active 18151496 Problem PVC (premature ventricular contraction) I49.3 Active 76223973 Problem senior living 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 Z79.4 Active 746876528 Problem Elevated BUN R79.9 Active 939488481 Problem Essential hypertension I10 Active 85453923 ALLERGIES Substance Reaction Event Type Date Status Adhesive Bandages Unknown Drug Allergy Oct, Active Toradol Unknown Non Drug Allergy Oct, Active ENCOUNTERS Encounter Location Date Diagnosis [facility] [id number] [address] Dec, [facility] [id number] [address] Dec, [facility] [address] [address] 06 Dec, 2017 [place] [id number] [place] [address]209 Nov, [place] [id number] [place] [address] 81593- 5405 Nov, PTSD (post-traumatic stress disorder) F43.10 and Moderate episode of recurrent major depressive disorder F33.1 [place] [id number] [place] [address] 80015- 5337 23 Nov, 2017 Chest pain, unspecified type R07.9 ; Coronary artery disease involving tangirnaq coronary artery of tang[place] heart with angina pectoris I25.119 ; Restless leg syndrome G25.81 ; Hospital discharge follow-up Z09 and Type 2 diabetes mellitus with diabetic polyneuropathy E11.42 [place] [id number] [place] [address] 99955- 9016 20 Nov, 2017 Hyperlipidemia LDL goal <70 E78.5 [place] [id number] [place] [address] 89616- 3341 14 Nov, 2017 Hospital discharge follow-up Z09 ; Chest pain, unspecified type R07.9 ; Coronary artery disease involving tangirnaq coronary artery of [place] heart with angina pectoris I25.119 and Gastroesophageal reflux disease without esophagitis K21.9 [place] [id number] [place] [address] 51439- 1726 Nov, PTSD (post-traumatic stress disorder) F43.10 and Moderate episode of recurrent major depressive disorder F33.1 [place] [address] [place] [address] 09486- 3986 Oct, Type 2 diabetes mellitus with diabetic polyneuropathy E11.42 [place] [id number] [place] [address] 40326- 5917 Oct, Diarrhea, unspecified type R19.7 ; Gastroesophageal reflux disease without esophagitis K21.9 and Vaginal discharge N89.8 [place] [id number] [place] [address] 34819- 0408 Oct, Type 2 diabetes mellitus with diabetic polyneuropathy E11.42 [facility] [id number] [place] [address] 88994- 9357 Oct, Hyperlipidemia LDL goal <70 E78.5 [facility] [id number] [place] [address] 75918- 0989 Oct, Atherosclerotic heart disease of tangir[place]q coronary artery without angina pectoris I25.10 ; Coronary artery disease involving tangir[place]q heart with angina pectoris, unspecified vessel or lesion type I25.119 ; Type 2 diabetes mellitus with diabetic polyneuropathy E11.42 ; Hyperlipidemia LDL goal <70 E78.5 ; Cigarette smoker F17.210 and Post-traumatic stress reaction F43.10 [facility] [id number] [place] [address] 73863- 4961 Oct, [facility] [address] [address] Oct, Difficulty breathing R06.89 ; Hospital discharge follow-up Z09 and Bilateral lower extremity edema R60.0 [facility] [id number] [place] [address] 16629- 2197 Oct, [facility] [id number] [place] [address]455 -8882 Oct, Dependent edema R60.9 [facility] [id number] [place] [address] 04632- 5406 Oct, [facility] [id number] [place] [address] 17967- 5182 Oct, [facility] [id number] [place] [address] 97181- 0834 Oct, Type 2 diabetes mellitus with diabetic polyneuropathy E11.42 [facility] [id number] [place] [address] 06711- 1851 Oct, [facility] [address] [address]- [address] Sep, [facility] [address] [address] August, [facility] [address] [address] Jul, [facility] [address] [address] Jul, Establishing care with new doctor, encounter for Z76.89 ; Type 2 diabetes mellitus with diabetic polyneuropathy E11.42 ; qa test lead 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 Z79.4 ; Hyperlipidemia LDL goal <70 E78.5 ; Essential hypertension I10 and Chest pain, unspecified type R07.9 [facility] [address] [address] Jul, [facility] [id number] [place] [address] 31969- 0276 Jul, [facility] [address] [place] [address] 73045- 9059 Jun, [facility] [address] [address] Jun, [facility] [address] [place] [address] 51365- 0618 Jun, [facility] [address] [address] Jun, Acute hyperglycemia R73.9 ; Type 2 diabetes mellitus with diabetic polyneuropathy E11.42 ; qa test lead 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 Z79.4 ; HTN, goal below 130/80 I10 and Hyperlipidemia LDL goal <70 E78.5 [facility] [address] [address] August, [facility] [address] [address] August, [facility] [address] [address] August, Acute vaginitis N76.0 ; Trichomonas vaginitis A59.01 and Vaginal discharge N89.8 IMMUNIZATIONS No Known Immunizations SOCIAL HISTORY Never Assessed REASON FOR VISIT Swollen ankles x 1 week. Self-treatment includes alcides bandages, a brace, and elevation. Known diabetic, ER visit 10/16/2017. [email or web address] PLAN OF CARE Activity Details Follow Up 10/26/2017 w/ Roberto Carlos Collins Reason:hospital f/u & edema VITAL SIGNS Height 62 in 2017-10-18 Weight 162.4 lbs 2017-10-18 Temperature 100.4 degrees Fahrenheit 2017-10-18 Heart Rate 76 bpm 2017-10-18 Respiratory Rate 24 2017-10-18 BMI 29.70 kg/m2 2017-10-18 Blood pressure systolic 122 mmHg 2017-10-18 Blood pressure diastolic 90 mmHg 2017-10-18 MEDICATIONS Medication Instructions Dosage Frequency Start Date End Date Duration Status Metformin HCl 1000 MG Orally Twice a day 1 tablet with meals 12h 30 days Active Naproxen Sodium 220 MG Orally every 12 hrs 1 tablet with food or milk as needed 12h Active Blood Glucose Monitor System w/Device as directed Jun, Active Lasix 20 mg Orally Once a day 1 tablet 24h Oct, 03 days Active Humalog KwikPen 100 UNIT/ML Subcutaneous 3 times a day Inject 10 Units with meals 8h Active Fluoxetine HCl 20 MG Orally Once a day 1 capsule in the morning 24h Active Labetalol HCl 100 mg Orally 2 times a day 1 tablet 12h 30 days Active Lisinopril 5 mg Orally Once a day 1 tablet 24h Jul, 30 day(s) Active Blood Glucose Test Strip Test Strips One Touch Verio strip and Delica lancet 3 times a day test blood sugar 8h Jun, 30 days Active Atorvastatin Calcium 80 MG Orally Once a day 1 tablet 24h 30 days Active Pen [place] 31G X 6 MM Active Levemir FlexTouch 100 UNIT/ML Subcutaneous 2 times a day 15 Units 12h Active RESULTS No Results PROCEDURES No Known procedures INSTRUCTIONS MEDICATIONS ADMINISTERED No Known Medications MEDICAL (GENERAL) HISTORY Type Description Date Medical History Type 2 diabetes mellitus with diabetic polyneuropathy Medical History senior living 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
--- OUTSIDE RECORDS SUMMARY | 2017-12-22 23:29 | XMS REPORT ---
Author Author BRANNON LE Organization [facility] Address [address] [place] [address] Care Team Providers Care Resident Services Manager Name Role Phone BRANNON LE Unavailable PROBLEMS Type Condition ICD9-CM Code [id number] Code Onset Dates Condition Status SNOMED Code Problem Chest pain, unspecified type R07.9 Active 16202088 Problem Atherosclerotic heart disease of [place] coronary artery without angina pectoris I25.10 Active 238851338 Problem Cigarette smoker F17.210 Active 18336877 Problem Restless leg syndrome G25.81 Active 05856078 Problem 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 Active 8363296103707 Problem Gastroesophageal reflux disease without esophagitis K21.9 Active 416603688 Problem Coronary artery disease involving [place] heart with angina pectoris, unspecified vessel or lesion type I25.119 Active 80683089 Problem Moderate episode of recurrent major depressive disorder F33.1 Active 368531673 Problem PTSD (post-traumatic stress disorder) F43.10 Active 45595941 Problem Hyperlipidemia LDL goal <70 E78.5 Active 99027460 Problem Type 2 diabetes mellitus with diabetic polyneuropathy E11.42 Active 78563551 Problem PVC (premature ventricular contraction) I49.3 Active 66503673 Problem half-way 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 Z79.4 Active 710318027 Problem Elevated BUN R79.9 Active 566440616 Problem Essential hypertension I10 Active 90127813 ALLERGIES No Information ENCOUNTERS Encounter Location Date Diagnosis [facility] [address], [place] [address] Dec, [facility] [address] [place] [address] 75985- 7718 Dec, [facility] [address] [address] Dec, [place] [id number] [place] [address] 17957- 0768 Nov, [place] [address] [address] Nov, PTSD (post-traumatic stress disorder) F43.10 and Moderate episode of recurrent major depressive disorder F33.1 [place] [id number] [place] [address] 70786- 3354 Nov, Chest pain, unspecified type R07.9 ; 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 ; Restless leg syndrome G25.81 ; Hospital discharge follow-up Z09 and Type 2 diabetes mellitus with diabetic polyneuropathy E11.42 [place] [id number] [place] [address] 56097- 1990 Nov, Hyperlipidemia LDL goal <70 E78.5 [place] [address] [address]- [address] 14 Nov, 2017 Hospital discharge follow-up Z09 ; Chest pain, unspecified type R07.9 ; 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 and Gastroesophageal reflux disease without esophagitis K21.9 [place] [id number] [place] [address] 60430- 2833 Nov, PTSD (post-traumatic stress disorder) F43.10 and Moderate episode of recurrent major depressive disorder F33.1 [place] [id number] [place] [address] 33520- 6464 Oct, Type 2 diabetes mellitus with diabetic polyneuropathy E11.42 [place] [id number] [place] [address] 16925- 6577 Oct, Diarrhea, unspecified type R19.7 ; Gastroesophageal reflux disease without esophagitis K21.9 and Vaginal discharge N89.8 [place] [id number] [place] [address] 27747- 5667 Oct, Type 2 diabetes mellitus with diabetic polyneuropathy E11.42 [place] [address] [place] [address] 60649- 2769 Oct, Hyperlipidemia LDL goal <70 E78.5 [facility] [id number] [place] [address] 65070- 7852 Oct, Atherosclerotic heart disease of [place] coronary artery without angina pectoris I25.10 ; Coronary artery disease involving [place] heart with angina pectoris, unspecified vessel or lesion type I25.119 ; Type 2 diabetes mellitus with diabetic polyneuropathy E11.42 ; Hyperlipidemia LDL goal <70 E78.5 ; Cigarette smoker F17.210 and Post-traumatic stress reaction F43.10 [place] [id number] [place] [address] 14385- 2249 Oct, [facility] [id number] [place] [address] 34771- 8998 Oct, Difficulty breathing R06.89 ; Hospital discharge follow-up Z09 and Bilateral lower extremity edema R60.0 [facility] [id number] [place] [address] 39086- 1033 Oct, [facility] [id number] [place] [address] 76517 -9908 Oct, Dependent edema R60.9 [facility] [id number] [place] [address] 13833- 0282 Oct, [facility] [id number] [place] [address] 29574- 7948 Oct, [facility] [id number] [place] [address] 36098- 2808 Oct, Type 2 diabetes mellitus with diabetic polyneuropathy E11.42 [facility] [id number] [place] [address] 26394- 5227 Oct, [facility] [id number] [place] [address] 43033- 7400 Sep, [facility] [id number] [place] [address] 35132- 5202 August, [facility] [address], [place] [address]- 1404 Jul, [facility] [id number] [place] [address] 27480- 7772 Jul, Establishing care with new doctor, encounter for Z76.89 ; Type 2 diabetes mellitus with diabetic polyneuropathy E11.42 ; 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 ; Hyperlipidemia LDL goal <70 E78.5 ; Essential hypertension I10 and Chest pain, unspecified type R07.9 [facility] [address] [address] 1765 Jul, [facility] [id number] [place] [address] 00445- 0706 Jul, [facility] [id number] [place] [address] 32543- 7032 Jun, [facility] [id number] [place] [address] 73203- 2461 Jun, [facility] [id number] [place] [address] 02228- 3707 Jun, [facility] [id number] [place] [address] 60851- 8763 Jun, Acute hyperglycemia R73.9 ; Type 2 diabetes mellitus with diabetic polyneuropathy E11.42 ; half-way 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 Z79.4 ; HTN, goal below 130/80 I10 and Hyperlipidemia LDL goal <70 E78.5 [facility] [address] [address] August, [facility] [id number] [place] [address] 64949 -1795 August, [facility] [address] [place] [address] 04575 -7971 August, Acute vaginitis N76.0 ; Trichomonas vaginitis A59.01 and Vaginal discharge N89.8 IMMUNIZATIONS No Known Immunizations SOCIAL HISTORY Never Assessed REASON FOR VISIT BS f/u PLAN OF CARE VITAL SIGNS MEDICATIONS Unknown Medications RESULTS No Results PROCEDURES No Known procedures INSTRUCTIONS MEDICATIONS ADMINISTERED No Known Medications MEDICAL (GENERAL) HISTORY Type Description Date Medical History Type 2 diabetes mellitus with diabetic polyneuropathy 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
--- OUTSIDE RECORDS SUMMARY | 2017-12-22 23:29 | XMS REPORT ---
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 Active 0593595690919 Problem Gastroesophageal reflux disease without esophagitis K21.9 Active 782689683 Problem Coronary artery disease involving [place] heart with angina pectoris, unspecified vessel or lesion type I25.119 Active 12422949 Problem Moderate episode of recurrent major depressive disorder F33.1 Active 927271160 Problem PTSD (post-traumatic stress disorder) F43.10 Active 30209851 Problem Hyperlipidemia LDL goal <70 E78.5 Active 04751125 Problem Type 2 diabetes mellitus with diabetic polyneuropathy E11.42 Active 49934067 Problem PVC (premature ventricular contraction) I49.3 Active 40039379 Problem senior living 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 Z79.4 Active 924627575 Problem Elevated BUN R79.9 Active 043249873 Problem Essential hypertension I10 Active 59286398 ALLERGIES No Information ENCOUNTERS Encounter Location Date Diagnosis [facility], [place] [address], [place] [address] Dec, [facility], [place] [address] [place] [address] 57972- 2140 Dec, [facility], [place] [address] [address] Dec, [place] [place] [address] [place] [id number] [place] [address] 81758- 3508 Nov, [place] [address] 61706- 0571 Nov, PTSD (post-traumatic stress disorder) F43.10 and Moderate episode of recurrent major depressive disorder F33.1 [place] [address] [place] [id number] [place] [address] 55300- 3391 Nov, Chest pain, unspecified type R07.9 ; 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 ; Restless leg syndrome G25.81 ; Hospital discharge follow-up Z09 and Type 2 diabetes mellitus with diabetic polyneuropathy E11.42 [place] [address] [id number] [place] [address] 18119- 6608 Nov, Hyperlipidemia LDL goal <70 E78.5 [place] [address] 46[address]- 6826 14 Nov, 2017 Hospital discharge follow-up Z09 ; Chest pain, unspecified type R07.9 ; 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 and Gastroesophageal reflux disease without esophagitis K21.9 [place] [address] [address] [id number] [place] [address] 29562- 9903 Nov, PTSD (post-traumatic stress disorder) F43.10 and Moderate episode of recurrent major depressive disorder F33.1 [place] [address] [address] [id number] [place] [address] 32769- 6802 Oct, Type 2 diabetes mellitus with diabetic polyneuropathy E11.42 [place] [address] [id number] [place] [address] 43219- 8475 Oct, Diarrhea, unspecified type R19.7 ; Gastroesophageal reflux disease without esophagitis K21.9 and Vaginal discharge N89.8 [place] [address] [address] [id number] [place] [address] 42250- 7513 Oct, Type 2 diabetes mellitus with diabetic polyneuropathy E11.42 [place] [address] [place] [address] 64331- 1329 Oct, Hyperlipidemia LDL goal <70 E78.5 [facility], [place] [id number] [place] [address] 51126- 6789 Oct, Atherosclerotic heart disease of [place] coronary artery without angina pectoris I25.10 ; Coronary artery disease involving [place] heart with angina pectoris, unspecified vessel or lesion type I25.119 ; Type 2 diabetes mellitus with diabetic polyneuropathy E11.42 ; Hyperlipidemia LDL goal <70 E78.5 ; Cigarette smoker F17.210 and Post-traumatic stress reaction F43.10 [place] [address] [id number] [place] [address] 31623- 8202 Oct, [facility], [place] [id number] [place] [address] 45621- 7255 Oct, Difficulty breathing R06.89 ; Hospital discharge follow-up Z09 and Bilateral lower extremity edema R60.0 [facility], [place] [address] [id number] [place] [address] 59617- 3390 Oct, [facility] [id number] [place] [address] 53104 -5189 Oct, Dependent edema R60.9 [facility], [place] [id number] [place] [address] 37216- 2382 Oct, [facility], [place] [id number] [place] [address] 68818- 6242 Oct, [facility], [place] [id number] [place] [address] 74118- 1372 Oct, Type 2 diabetes mellitus with diabetic polyneuropathy E11.42 [facility], [place] [address] [id number] [place] [address] 04308- 7339 Oct, [facility], [place] [id number] [place] [address] 93901- 3022 Sep, [facility], [place] [id number] [place] [address] 06800- 5427 August, [facility], [place] [address], [place] [address] 6136 Jul, [facility], [place] [id number] [place] [address] 88090- 1538 Jul, Establishing care with new doctor, encounter for Z76.89 ; Type 2 diabetes mellitus with diabetic polyneuropathy E11.42 ; 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 ; Hyperlipidemia LDL goal <70 E78.5 ; Essential hypertension I10 and Chest pain, unspecified type R07.9 [facility], [place] [address] [address] 1258 Jul, [facility], [place] [id number] [place] [address] 19284- 1841 Jul, [facility], [place] [id number] [place] [address] 04581- 3614 Jun, [facility], [place] [id number] [place] [address] 96850- 1690 Jun, [facility], [place] [id number] [place] [address] 99638- 7847 Jun, [facility], [place] [id number] [place] [address] 53072- 3305 Jun, Acute hyperglycemia R73.9 ; Type 2 diabetes mellitus with diabetic polyneuropathy E11.42 ; senior living 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 Z79.4 ; HTN, goal below 130/80 I10 and Hyperlipidemia LDL goal <70 E78.5 [facility] [address] [address] August, [facility] [id number] [place] [address] 68084 -0103 August, [facility] [address] [place] [address] 71242 -3703 August, Acute vaginitis N76.0 ; Trichomonas vaginitis A59.01 and Vaginal discharge N89.8 IMMUNIZATIONS No Known Immunizations SOCIAL HISTORY Never Assessed REASON FOR VISIT phone call PLAN OF CARE VITAL SIGNS MEDICATIONS Medication Instructions Dosage Frequency Start Date End Date Duration Status Levemir FlexTouch 100 UNIT/ML Subcutaneous 2 times a day 15 Units 12h Active Humalog KwikPen 100 UNIT/ML Subcutaneous 3 times a day Inject 10 Units with meals 8h Active RESULTS No Results PROCEDURES No Known [...]
--- OUTSIDE RECORDS SUMMARY | 2017-12-22 23:29 | XMS REPORT ---
Author Author BRANNON LE Organization 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 Active 0438486105103 Problem Gastroesophageal reflux disease without esophagitis K21.9 Active 137031986 Problem Coronary artery disease involving [place] heart with angina pectoris, unspecified vessel or lesion type I25.119 Active 83918669 Problem Moderate episode of recurrent major depressive disorder F33.1 Active 531792959 Problem PTSD (post-traumatic stress disorder) F43.10 Active 95756831 Problem Hyperlipidemia LDL goal <70 E78.5 Active 21395399 Problem Type 2 diabetes mellitus with diabetic polyneuropathy E11.42 Active 45713214 Problem PVC (premature ventricular contraction) I49.3 Active 08395639 Problem residential 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 Z79.4 Active 798652505 Problem Elevated BUN R79.9 Active 494332901 Problem Essential hypertension I10 Active 98954854 ALLERGIES No Information ENCOUNTERS Encounter Location Date Diagnosis [facility] [address] [address] 9[address] Dec, [facility] [id number] [place] [address] 25049- 6747 Dec, [facility] [address] [address]- 2552 Dec, [place] [address] [id number] [place] [address] 66110- 3748 Nov, [place] [address] [address]61- 0152 Nov, PTSD (post-traumatic stress disorder) F43.10 and Moderate episode of recurrent major depressive disorder F33.1 [place] [address] [address] [id number] [place] [address] 78593- 8726 Nov, Chest pain, unspecified type R07.9 ; 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 ; Restless leg syndrome G25.81 ; Hospital discharge follow-up Z09 and Type 2 diabetes mellitus with diabetic polyneuropathy E11.42 [place] [id number] [place] [address] 69484- 6808 Nov, Hyperlipidemia LDL goal <70 E78.5 [place] [address] 72157- 0148 14 Nov, 2017 Hospital discharge follow-up Z09 ; Chest pain, unspecified type R07.9 ; 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 and Gastroesophageal reflux disease without esophagitis K21.9 [place] [id number] [place] [address] 64364- 0755 Nov, PTSD (post-traumatic stress disorder) F43.10 and Moderate episode of recurrent major depressive disorder F33.1 [place] [id number] [place] [address] 90674- 6029 Oct, Type 2 diabetes mellitus with diabetic polyneuropathy E11.42 [place] [address] [address] [id number] [place] [address] 02882- 4568 Oct, Diarrhea, unspecified type R19.7 ; Gastroesophageal reflux disease without esophagitis K21.9 and Vaginal discharge N89.8 [place] [id number] [place] [address] 30148- 5858 Oct, Type 2 diabetes mellitus with diabetic polyneuropathy E11.42 [place] [address] [place] [address] 93099- 2710 Oct, Hyperlipidemia LDL goal <70 E78.5 [facility] [address] [id number] [place] [address] 65146- 0163 Oct, Atherosclerotic heart disease of [place] coronary artery without angina pectoris I25.10 ; Coronary artery disease involving [place] heart with angina pectoris, unspecified vessel or lesion type I25.119 ; Type 2 diabetes mellitus with diabetic polyneuropathy E11.42 ; Hyperlipidemia LDL goal <70 E78.5 ; Cigarette smoker F17.210 and Post-traumatic stress reaction F43.10 [place] [address] [id number] [place] [address] 40537- 6159 Oct, [facility] [address] [id number] [place] [address] 16027- 5395 Oct, Difficulty breathing R06.89 ; Hospital discharge follow-up Z09 and Bilateral lower extremity edema R60.0 [facility] [address] [place] [address] [id number] [place] [address] 76503- 9680 Oct, [facility] [id number] [place] [address] 78296 -4636 Oct, Dependent edema R60.9 [facility] [address] [place] [address] [id number] [place] [address] 57230- 3255 Oct, [facility] [id number] [place] [address] 84134- 1952 Oct, [facility] [address] [id number] [place] [address] 85840- 4437 Oct, Type 2 diabetes mellitus with diabetic polyneuropathy E11.42 [facility] [address] [place] [address] [id number] [place] [address] 16482- 8301 Oct, [facility] [id number] [place] [address] 31023- 4566 Sep, [facility] [address] [place] [id number] [place] [address] 27384- 5261 August, [facility] [address] [address]- 8352 Jul, [facility] [id number] [place] [address] 88593- 7192 Jul, Establishing care with new doctor, encounter for Z76.89 ; Type 2 diabetes mellitus with diabetic polyneuropathy E11.42 ; 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 ; Hyperlipidemia LDL goal <70 E78.5 ; Essential hypertension I10 and Chest pain, unspecified type R07.9 [facility] [address] [address]- 4951 Jul, [facility] [id number] [place] [address] 56797- 1992 Jul, [facility] [id number] [place] [address] 52885- 9675 Jun, [facility] [id number] [place] [address] 16086- 3193 Jun, [facility] [id number] [place] [address] 15140- 8965 Jun, [facility] [id number] [place] [address] 32739- 4709 Jun, Acute hyperglycemia R73.9 ; Type 2 diabetes mellitus with diabetic polyneuropathy E11.42 ; residential 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 Z79.4 ; HTN, goal below 130/80 I10 and Hyperlipidemia LDL goal <70 E78.5 [facility] [address] [address] August, [facility] [id number] [place] [address] 41309 -1919 August, [facility] [address] [place] [address] 95582 -9846 August, Acute vaginitis N76.0 ; Trichomonas vaginitis A59.01 and Vaginal discharge N89.8 IMMUNIZATIONS No Known Immunizations SOCIAL HISTORY Never Assessed REASON FOR VISIT glucose monitor PLAN OF CARE VITAL SIGNS MEDICATIONS Unknown Medications RESULTS No Results PROCEDURES No Known procedures INSTRUCTIONS MEDICATIONS ADMINISTERED No Known Medications MEDICAL (GENERAL) HISTORY Type Description Date Medical History Type 2 diabetes mellitus with diabetic polyneuropathy Medical History residential 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
--- OUTSIDE RECORDS SUMMARY | 2017-12-22 23:30 | XMS REPORT ---
Author Author BRANNON LE Organization [facility] IN [facility] Address [address] [place] [address] Care Team Providers Care Slip Operator Name Role Phone BRANNON LE Unavailable PROBLEMS Type Condition ICD9-CM Code EQT01-GV Code Onset Dates Condition Status SNOMED Code Problem Chest pain, unspecified type R07.9 Active 51299497 Problem Atherosclerotic heart disease of [place] coronary artery without angina pectoris I25.10 Active 273998841 Problem Cigarette smoker F17.210 Active 80032341 Problem Restless leg syndrome G25.81 Active 78676128 Problem 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.119 Active 5928375042837 Problem Gastroesophageal reflux disease without esophagitis K21.9 Active 805236168 Problem Coronary artery disease involving [place] heart with angina pectoris, unspecified vessel or lesion type I25.119 Active 33557625 Problem Moderate episode of recurrent major depressive disorder F33.1 Active 046560282 Problem PTSD (post-traumatic stress disorder) F43.10 Active 16014823 Problem Hyperlipidemia LDL goal <70 E78.5 Active 46929926 Problem Type 2 diabetes mellitus with diabetic polyneuropathy E11.42 Active 60063081 Problem PVC (premature ventricular contraction) I49.3 Active 97297392 Problem [facility] 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 Z79.4 Active 753657245 Problem Elevated BUN R79.9 Active 684486413 Problem Essential hypertension I10 Active 97656446 ALLERGIES No Information ENCOUNTERS Encounter Location Date Diagnosis [facility] [address], [place] [address]- 0979 Dec, [facility] [address] [place] [address] 23349- 1470 Dec, [facility] [address], [place] [address]- 5509 Nov, [facility] [address] [place] [address] 10467- 5649 Nov, [facility] [address] [id number] [place] [address] 22338- 4086 Nov, [facility] [address] [place] [id number] [place] [address] 20283- 2747 Nov, Chest pain, unspecified type R07.9 ; 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.119 ; Restless leg syndrome G25.81 ; Hospital discharge follow-up Z09 and Type 2 diabetes mellitus with diabetic polyneuropathy E11.42 [place] [address] 91976- 7349 Nov, Hyperlipidemia LDL goal <70 E78.5 [place] [id number] [place] [address] 33615- 8017 Nov, Hospital discharge follow-up Z09 ; Chest pain, unspecified type R07.9 ; 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.119 and Gastroesophageal reflux disease without esophagitis K21.9 [place] [id number] [place] [address] 17287- 1432 Nov, PTSD (post-traumatic stress disorder) F43.10 and Moderate episode of recurrent major depressive disorder F33.1 [place] [address] [id number] [place] [address] 11165- 7529 Oct, Type 2 diabetes mellitus with diabetic polyneuropathy E11.42 [place] [address] [place] [address] [id number] [place] [address] 18838- 8776 Oct, Diarrhea, unspecified type R19.7 ; Gastroesophageal reflux disease without esophagitis K21.9 and Vaginal discharge N89.8 [place] [address] [id number] [place] [address] 79040- 8840 Oct, Type 2 diabetes mellitus with diabetic polyneuropathy E11.42 [place] [address] [id number] [place] [address] 58097- 6845 Oct, Hyperlipidemia LDL goal <70 E78.5 [facility] [id number] [place] [address] 17712- 5970 Oct, Atherosclerotic heart disease of [place] coronary artery without angina pectoris I25.10 ; Coronary artery disease involving [place] heart with angina pectoris, unspecified vessel or lesion type I25.119 ; Type 2 diabetes mellitus with diabetic polyneuropathy E11.42 ; Hyperlipidemia LDL goal <70 E78.5 ; Cigarette smoker F17.210 and Post-traumatic stress reaction F43.10 [facility] [id number] [place] [address] 09194- 3078 Oct, [facility] [address] 28080- 5457 Oct, Difficulty breathing R06.89 ; Hospital discharge follow-up Z09 and Bilateral lower extremity edema R60.0 [place] [address] [id number] [place] [address] 47468- 7804 Oct, [facility] [id number] [place] [address] 80362 -7097 Oct, Dependent edema R60.9 [facility] [address] [id number] [place] [address] 95377- 3817 Oct, [facility] [id number] [place] [address] 55746- 0798 Oct, [facility] [id number] [place] [address] 79192- 1908 Oct, Type 2 diabetes mellitus with diabetic polyneuropathy E11.42 [facility] [id number] [place] [address] 19759- 6397 Oct, [facility] [id number] [place] [address] 21036- 0117 Sep, [facility] [id number] [place] [address] 96359- 4456 August, [facility] [id number] [place] [address] 77043- 7882 Jul, [facility] [id number] [place] [address] 07189- 9264 Jul, Establishing care with new doctor, encounter for Z76.89 ; Type 2 diabetes mellitus with diabetic polyneuropathy E11.42 ; [facility] 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 Z79.4 ; Hyperlipidemia LDL goal <70 E78.5 ; Essential hypertension I10 and Chest pain, unspecified type R07.9 [facility] [id number] [place] [address] 42798- 4795 Jul, [facility] [address] 64414- 5321 Jul, [facility] [address] 72479- 7936 Jun, [facility] [address] [id number] [place] [address] 38859- 2819 Jun, [facility] [id number] [place] [address] 56136- 6743 Jun, [facility] [id number] [place] [address] 41123- 1103 Jun, Acute hyperglycemia R73.9 ; Type 2 diabetes mellitus with diabetic polyneuropathy E11.42 ; 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 Z79.4 ; HTN, goal below 130/80 I10 and Hyperlipidemia LDL goal <70 E78.5 [facility] [id number] [place] [address] 33772 -2745 August, [facility] [id number] [place] [address] 82016 -2571 August, [facility] [id number] [place] [address] 50859 -1920 August, Acute vaginitis N76.0 ; Trichomonas vaginitis A59.01 and Vaginal discharge N89.8 IMMUNIZATIONS No Known Immunizations SOCIAL HISTORY Never Assessed REASON FOR VISIT BS f/u attempt PLAN OF CARE VITAL SIGNS MEDICATIONS Unknown Medications RESULTS No Results PROCEDURES No Known procedures INSTRUCTIONS MEDICATIONS ADMINISTERED No Known Medications MEDICAL (GENERAL) HISTORY Type Description Date Medical History Type 2 diabetes mellitus with diabetic polyneuropathy Medical History [facility] 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
[2017-12-23 00:04] LABS: BASOPHILS % (AUTO) 0 % (0-10); EOSINOPHILS # (AUTO) 0.1 10^3/uL (0.0-0.3); EOSINOPHILS % (AUTO) 2 % (0-10); HEMATOCRIT 33 % (35-52); HEMOGLOBIN 11.3 G/DL (11.5-16.0); LYMPHOCYTES % (AUTO) 27 % (12-44); MEAN CORPUSCULAR HEMOGLOBIN 26 PG (25-34); MEAN CORPUSCULAR HGB CONC 34 G/DL (32-36); MEAN CORPUSCULAR VOLUME 77 FL (80-99); MEAN PLATELET VOLUME 8.7 FL (7.4-10.4); MONOCYTES # (AUTO) 0.4 X 10^3 (0.0-1.0); MONOCYTES % (AUTO) 6 % (0-12); NEUTROPHILS # (AUTO) 4.9 X 10^3 (1.8-7.8); NEUTROPHILS % (AUTO) 66 % (42-75); PLATELET COUNT 329 10^3/uL (130-400); RED CELL DISTRIBUTION WIDTH 15.8 % (10.0-14.5); WHITE BLOOD COUNT 7.5 10^3/uL (4.3-11.0)
[2017-12-23 00:21] LABS: ALANINE AMINOTRANSFERASE 25 U/L (0-55); ALBUMIN 3.8 GM/DL (3.2-4.5); ALKALINE PHOSPHATASE 113 U/L (40-136); BILIRUBIN,TOTAL 0.6 MG/DL (0.1-1.0); BUN/CREATININE RATIO 20; CALCIUM 9.1 MG/DL (8.5-10.1); CARBON DIOXIDE 21 MMOL/L (21-32); CHLORIDE 104 MMOL/L (98-107); CREATININE SERUM 0.71 MG/DL (0.60-1.30); GFR ESTIMATED > 60; GLUCOSE 339 MG/DL (70-105); MAGNESIUM 1.7 MG/DL (1.8-2.4); POTASSIUM 3.9 MMOL/L (3.6-5.0); SODIUM 136 MMOL/L (135-145); TOTAL PROTEIN 7.1 GM/DL (6.4-8.2)
[2017-12-23 00:27] LABS: MYOGLOBIN SERUM 14.9 NG/ML (10.0-92.0)
[2017-12-23] MEDS ORDERED: HYDROcodone/APAP 7.5 MG/325 MG (LORTAB, LORCET PLUS) TABLET PO STA (00:31)
[2017-12-23] MEDS ORDERED: KETOROLAC 30 MG/ML VIAL IVP STA (00:31)
[2017-12-23 00:33] LABS: PROTHROMBIN TIME PATIENT 12.7 SEC (12.2-14.7)
--- NOTE | 2017-12-23 00:39 | ED Chest Pain ---
General Chief Complaint: Chest Pain Stated Complaint: CHEST PAIN Nursing Triage Note: AMBULATORY TO ED WITH C/O CP SINCE YESTERDAY EVENING. STATES SHE TAKES ALL HER MEDICINES DAILY INCLUDING BABY ASA THAT SHE HAD THIS AM, NO ASA OR NITRO TIME STUDY ANALYST. Nursing Sepsis Screen: No Definite Risk Source: patient Exam Limitations: no limitations History of Present Illness Date Seen by Provider: Dec 23, 2017 Time Seen by Provider: 00:20 Initial Comments Here with report of left-sided chest pain that goes to her left shoulder as well as right neck pain. Onset yesterday afternoon. She took her aspirin today but no other pain medicines. She does state that this is a little different than her typical chest pain. Last heart catheter was about 3 months ago and was negative. She reports taking her meds as directed. Denies nausea, vomiting, breathing problems or sweating. Timing/Duration: 24 hours, constant Severity/Quality: moderate Location: central Radiation: arms, neck, shoulders Prior CP/Workup: cardiac cath, heart attack Modifying Factors: worse with movement ASA po TIME STUDY ANALYST: Yes NTG SL TIME STUDY ANALYST: No Associated Symptoms: No abdominal pain, No back pain, No diaphoresis, No fever/ chills, No nausea/vomiting, No shortness of breath, No weakness Allergies and Home Medications Allergies Coded Allergies: coconut (Verified Allergy, Severe, anaphylactic reaction, 07/11/17) ketorolac (Unverified Allergy, Unknown, 08/19/15) Home Medications Albuterol Sulfate 18 Gm Hfa.aer.ad, 2 PUFF IH Q4H PRN for SHORTNESS OF BREATH Prescribed by: ERNESTO MEADOWS on 10/24/17 1406 Aspirin 81 Mg Tab.chew, 81 MG PO DAILY Prescribed by: RALPH BLANCO on 10/29/17 09 Atorvastatin Calcium 80 Mg Tablet, 80 MG PO HS Prescribed by: KRISTAL IZAGUIRRE on 12/03/17 0758 Clopidogrel Bisulfate 75 Mg Tablet, 75 MG PO DAILY Prescribed by: RALPH BLANCO on 10/29/17 09 Furosemide 40 Mg Tablet, 40 MG PO DAILY Prescribed by: RALPH BLANCO on 10/29/17 09 Insulin Determir 1,000 Units/10 Ml Soln, 20 UNITS SQ BID Prescribed by: NORIS KEVIN on 11/17/17 1131 Insulin Lispro 100 Unit/1 Ml Insuln.pen, 15 UNIT SQ TIDAC Prescribed by: NORIS KEVIN on 11/17/17 1131 Isosorbide Mononitrate 30 Mg Tab.er.24h, 30 MG PO DAILY Prescribed by: KRISTAL IZAGUIRRE on 11/17/17 0943 Lisinopril 5 Mg Tablet, 5 MG PO DAILY@0900 Prescribed by: KRISTAL IZAGUIRRE on 12/03/17 0758 Metoprolol Succinate 50 Mg Tab.er.24h, 50 MG PO BID Prescribed by: RALPH BLANCO on 10/29/17 113 Pantoprazole Sodium 40 Mg Granpkt.dr, 40 MG PO DAILY Prescribed by: KRISTAL IZAGUIRRE on 11/17/17 0943 Potassium Chloride 20 Meq Tab.er.prt, 20 MEQ PO DAILY@0700 Prescribed by: RALPH BLANCO on 10/29/17 0923 Ranolazine 500 Mg Tab.er.12h, 500 MG PO BID Prescribed by: KRISTAL IZAGUIRRE on 12/03/17 0758 Patient Home Medication List Home Medication List Reviewed: Yes Review of Systems Review of Systems Constitutional: see HPI EENTM: No Symptoms Reported Respiratory: No Symptoms Reported Cardiovascular: Chest Pain; Denies Edema Gastrointestinal: Denies Abdominal Pain, Denies Nausea, Denies Vomiting Genitourinary: No Symptoms Reported Musculoskeletal: no symptoms reported All Other Systems Reviewed Negative Unless Noted: Yes Past Jmvotzx-Msujmi-Gdwleq Hx Past Med/Social Hx: Reviewed Nursing Past Med/Soc Hx Patient Social History Alcohol Use: Denies Use Recreational Drug Use: No Smoking Status: Current Everyday Smoker Type Used: Cigarettes 2nd Hand Smoke Exposure: Yes Recent Foreign Travel: No Contact w/Someone Who Travel: No Recent Infectious Disease Expo: No Recent Hopitalizations: No Immunizations Up To Date Tetanus Booster (TDap): Unknown PED Vaccines UTD: No Date of Pneumonia Vaccine: September 09, 2016 Seasonal Allergies Seasonal Allergies: No Past Medical History Surgeries: Yes Breast, Section, Tubal Ligation Respiratory: No Currently Using CPAP: No Currently Using BIPAP: No Cardiac: Yes (Hx of stent to LAD.) Heart Attack, Hypertension Neurological: Yes Neuropathy Reproductive Disorders: No Female Reproductive Disorders: Ovarian Cyst Sexually Transmitted Disease: No HIV/AIDS: No Genitourinary: No Gastrointestinal: No Musculoskeletal: Yes Chronic Back Pain Endocrine: Yes Diabetes, Insulin dep HEENT: No Loss of Vision: Denies Hearing Impairment: Denies Cancer: No Psychosocial: No Integumentary: No Blood Disorders: No Adverse Reaction/Blood Tranf: No Family Medical History Reviewed Nursing Family Hx Cardiovascular disease 19 FATHER, Onset:Unknown 19 MOTHER, Onset:Unknown Diabetes mellitus 19 FATHER 19 MOTHER Heart Disease, Diabetes, Other Conditions/Hx Physical Exam Vital Signs Vital Signs - First Documented 12/22/17 23:32 Temp 98.6 Pulse 89 Resp 19 B/P (MAP) 129/93 (105) O2 Delivery Room Air Capillary Refill : Less Than 3 Seconds Height, Weight, BMI Height: 5'2.00" Weight: 150lbs. 0.0oz. 68.035626kd; 27.5 BMI Method:Stated General Appearance: No Apparent Distress, WD/WN HEENT: PERRL/EOMI, Pharynx Normal Neck: Non Tender, Supple Respiratory: Lungs Clear, Normal Breath Sounds Cardiovascular: Regular Rate, Rhythm, No Murmur Gastrointestinal: Non Tender, Soft Extremity: Normal Range of Motion, Non Tender Neurologic/Psychiatric: Alert, Oriented x3 Skin: Normal Color, Warm/Dry Progress/Results/Core Measures Results/Orders Lab Results Laboratory Tests Test 12/22/17 23:54 Range/Units White Blood Count 7.5 4.3-11.0 10^3/uL Red Blood Count 4.30 L 4.35-5.85 10^6/uL Hemoglobin 11.3 L 11.5-16.0 G/DL Hematocrit 33 L 35-52 % Mean Corpuscular Volume 77 L 80-99 FL Mean Corpuscular Hemoglobin 26 25-34 PG Mean Corpuscular Hemoglobin Concent 34 32-36 G/DL Red Cell Distribution Width 15.8 H 10.0-14.5 % Platelet Count 329 130-400 10^3/uL Mean Platelet Volume 8.7 7.4-10.4 FL Neutrophils (%) (Auto) 66 42-75 % Lymphocytes (%) (Auto) 27 12-44 % Monocytes (%) (Auto) 6 0-12 % Eosinophils (%) (Auto) 2 0-10 % Basophils (%) (Auto) 0 0-10 % Neutrophils # (Auto) 4.9 1.8-7.8 X 10^3 Lymphocytes # (Auto) 2.0 1.0-4.0 X 10^3 Monocytes # (Auto) 0.4 0.0-1.0 X 10^3 Eosinophils # (Auto) 0.1 0.0-0.3 10^3/uL Basophils # (Auto) 0.0 0.0-0.1 10^3/uL Prothrombin Time 12.7 12.2-14.7 SEC INR Comment 1.0 0.8-1.4 Activated Partial Thromboplast Time 26 24-35 SEC D-Dimer 0.61 H 0.00-0.49 UG/ML Sodium Level 136 135-145 MMOL/L Potassium Level 3.9 3.6-5.0 MMOL/L Chloride Level 104 98-107 MMOL/L Carbon Dioxide Level 21 21-32 MMOL/L Anion Gap 11 5-14 MMOL/L Blood Urea Nitrogen 14 7-18 MG/DL Creatinine 0.71 0.60-1.30 MG/DL Estimat Glomerular Filtration Rate > 60 BUN/Creatinine Ratio 20 Glucose Level 339 H 70-105 MG/DL Calcium Level 9.1 8.5-10.1 MG/DL Corrected Calcium 9.3 8.5-10.1 MG/DL Magnesium Level 1.7 L 1.8-2.4 MG/DL Total Bilirubin 0.6 0.1-1.0 MG/DL Aspartate Amino Transf (AST/SGOT) 17 5-34 U/L Alanine Aminotransferase (ALT/SGPT) 25 0-55 U/L Alkaline Phosphatase 113 40-136 U/L Myoglobin 14.9 10.0-92.0 NG/ML Troponin I < 0.30 <0.30 NG/ML Total Protein 7.1 6.4-8.2 GM/DL Albumin 3.8 3.2-4.5 GM/DL My Orders Orders - NESSA MIJARES MD Cbc With Automated Diff (12/22/17 23:33) Magnesium (12/22/17 23:33) Chest 1 View, Ap/Pa Only (12/22/17 23:33) Ekg Tracing (12/22/17 23:33) Cardiac Profile 1 (12/22/17 23:33) Comprehensive Metabolic Panel (12/22/17 23:33) Myoglobin Serum (12/22/17 23:33) Protime With Inr (12/22/17 23:33) Partial Thromboplastin Time (12/22/17 23:33) O2 (12/22/17 23:33) Monitor-Rhythm Ecg Trace Only (12/22/17 23:33) Lipid Panel (12/23/17 06:00) Saline Lock/Iv-Start (12/22/17 23:33) Hydrocodone/Apap 7.5/325 Tab (Lortab 7. (12/23/17 00:31) Ketorolac Injection (Toradol Injection) (12/23/17 00:31) Fibrin Degradation Products (12/23/17 00:32) Naproxen Tablet (Naprosyn Tablet) (12/23/17 00:48) Vital Signs/I&O 12/22/17 23:32 Temp 98.6 Pulse 89 Resp 19 B/P (MAP) 129/93 (105) O2 Delivery Room Air Blood Pressure Mean: 105 Progress Progress Note : Progress Note Seen and evaluated. IV, labs, EKG and chest x-ray ordered. Naprosyn 500 mg by mouth and hydrocodone 7.5 mg tab given. Monitor patient. 0200: Pain is resolved. No acute findings on labs or x-ray. Discharged home with return precautions. Patient verbalize understanding instructions and agreement with plan Initial ECG Impression Date: Dec 22, 2017 Initial ECG Impression Time: 23:40 Initial ECG Rate: 95 Initial ECG Rhythm: Normal Sinus Initial ECG Comparisson: Unchanged Comment Sinus rhythm with normal axis. No evidence of ST elevation CO. Unchanged from previous. Interpreted by me. Diagnostic Imaging Diagonstic Imaging: Xray Plain Films/CT/US/NM/MRI: chest Comments No acute findings Reviewed: Reviewed by Me Departure Impression Primary Impression: Chest pain Qualified Codes: R07.9 - Chest pain, unspecified Disposition: HOME, SELF-CARE Condition: Improved Departure-Patient Inst. Decision time for Depature: 02:22 Referrals: [facility] (PCP/Family) Primary Care Physician Patient Instructions: Chest Pain (DC), Generalized Neck Pain (DC) Add. Discharge Instructions: All discharge instructions reviewed with patient and/or family. Voiced understanding. Take medications as directed. Follow-up with your DrKarsten in a few days for recheck. Return for worse pain, fever, vomiting, weakness, breathing problems or other concerns as needed. Scripts Hydrocodone Bit/Acetaminophen (Hydrocodone/Acetaminophen 5/325mg Tablet) 1 Tab Tab 1 EACH PO Q6H PRN for PAIN-MODERATE, #8 TAB 0 Refills Prov: NESSA MIJARES MD 12/23/17 Naproxen (Naprosyn) 500 Mg Tablet 500 MG PO BID, #30 TAB 0 Refills Prov: NESSA MIJARES MD 12/23/17 NESSA MIJARES MD Dec 23, 2017 00:39
[2017-12-23] MEDS ORDERED: NAPROXEN 250 MG (NAPROSYN) TABLET PO STA (00:48)
[2017-12-23] MEDS ORDERED: ACHD5005 PO (02:23)
[2017-12-23] MEDS ORDERED: NAPR-1071 PO (02:23)
[2017-12-23 02:34] VITALS: BP 145/93
--- NOTE | 2017-12-23 06:03 | Diagnostic Imaging Report ---
INDICATION: Chest pain COMPARISON: 12/01/2017 FINDINGS: Single frontal view of the chest demonstrates normal heart size and pulmonary vascularity. The lungs are well aerated and clear. No large pleural effusion or pneumothorax is seen. The visualized osseous structures show no acute abnormalities. IMPRESSION: 1. No acute cardiopulmonary process. Dictated by: Dictated on workstation # [id number]
== END 2017-12-23 02:37 | disposition home or self-care (01) ==
LOC: EDUNIT# 23:24 → ER 23:25
DX: R07.89 Other chest pain (principal); I25.2 Old myocardial infarction; I10 Essential (primary) hypertension; E11.9 Type 2 diabetes mellitus without complications; F17.210 Nicotine dependence, cigarettes, uncomplicated; Z98.890 Other specified postprocedural states; Z95.5 Presence of coronary angioplasty implant and graft; Z82.49 Family history of ischemic heart disease and other diseases of the circulatory system; Z87.448 Personal history of other diseases of urinary system; Z88.4 Allergy status to anesthetic agent; Z79.51 Long term (current) use of inhaled steroids; Z79.82 Long term (current) use of aspirin; Z79.4 Long term (current) use of insulin; Z79.02 Long term (current) use of antithrombotics/antiplatelets
CPT/HCPCS: 36415; 71045; 80053; 83735; 83874; 84484; 85025; 85379; 85610; 85730; 93005; 93041

== ENCOUNTER 2018-01-09 00:11 | Emergency (ER) | payer OTHER ==
[~2018-01-09] VITALS: Ht 157.5 cm; Wt 68.0 kg
[~2018-01-09 00:11] MED LIST changes: +ACHD5005 PO; +NAPR-1071 PO
--- OUTSIDE RECORDS SUMMARY | 2018-01-09 00:18 | XMS REPORT | Clinical Summary ---
Author Author [facility] Organization [facility] Address Unknown Phone Unavailable Care Team Providers Care Catcher Helper Name Role Phone Alfred Diaz MD PCP Unavailable Source Comments Some departments are not documenting in the electronic medical record. If you do not see the information that you expected, contact Release of Information in the Health Information Management department at [phone] for further assistance in locating additional records.[facility] Allergies Not on File Current Medications [...]
--- OUTSIDE RECORDS SUMMARY | 2018-01-09 00:18 | XMS REPORT ---
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 I25.119 Active 4083352846903 Problem Gastroesophageal reflux disease without esophagitis K21.9 Active 486401415 Problem Coronary artery disease involving campo heart with angina pectoris, unspecified vessel or lesion type I25.119 Active 84049247 Problem Moderate episode of recurrent major depressive disorder F33.1 Active 262090208 Problem PTSD (post-traumatic stress disorder) F43.10 Active 05600051 Problem Hyperlipidemia LDL goal <70 E78.5 Active 18354031 Problem Type 2 diabetes mellitus with diabetic polyneuropathy E11.42 Active 30375917 Problem PVC (premature ventricular contraction) I49.3 Active 18440434 Problem rn long term care 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 Z79.4 Active 045678323 Problem Elevated BUN R79.9 Active 361024864 Problem Essential hypertension I10 Active 31316837 ALLERGIES Substance Reaction Event Type Date Status Adhesive Bandages Unknown Drug Allergy Nov, Active Toradol Unknown Non Drug Allergy Nov, Active ENCOUNTERS Encounter Location Date Diagnosis [facility] [id number] [address] Jan, [facility] [address] [id number] [address] Dec, [facility] [address] [address] Dec, Bilateral hand numbness R20.0 [place] [address] [address] Dec, Moderate episode of recurrent major depressive disorder F33.1 ; Type 2 diabetes mellitus with diabetic polyneuropathy E11.42 ; rn long term care 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 Z79.4 ; Hyperlipidemia LDL goal <70 E78.5 ; Chest pain, unspecified type R07.9 ; 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 ; Cigarette smoker F17.210 ; Gastroesophageal reflux disease without esophagitis K21.9 and Restless leg syndrome G25.81 [place] [address] [address] Dec, PTSD (post-traumatic stress disorder) F43.10 and Moderate episode of recurrent major depressive disorder F33.1 [place] [address] [address] Dec, Moderate episode of recurrent major depressive disorder F33.1 [place] [address] [address] Dec, [place] [address] [address] Dec, [place] [address] [address] Dec, Uncontrolled type 2 diabetes mellitus with hyperglycemia E11.65 and Flatulence/gas pain/belching R14.0 [place] [id number] [place] [address] Nov, [place] [address] [address] Nov, PTSD (post-traumatic stress disorder) F43.10 and Moderate episode of recurrent major depressive disorder F33.1 [place] [address] [address] Nov, Chest pain, unspecified type R07.9 ; 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 I25.119 ; Restless leg syndrome G25.81 ; Hospital discharge follow-up Z09 and Type 2 diabetes mellitus with diabetic polyneuropathy E11.42 [place] [id number] [place] [address] Nov, Hyperlipidemia LDL goal <70 E78.5 [place] [address] [address] Nov, 2017 Hospital discharge follow-up Z09 ; Chest pain, unspecified type R07.9 ; 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 I25.119 and Gastroesophageal reflux disease without esophagitis K21.9 [place] [id number] [place] [address] Nov, PTSD (post-traumatic stress disorder) F43.10 and Moderate episode of recurrent major depressive disorder F33.1 [place] [id number] [place] [address] Oct, Type 2 diabetes mellitus with diabetic polyneuropathy E11.42 [place] [id number] [place] [address] Oct, Diarrhea, unspecified type R19.7 ; Gastroesophageal reflux disease without esophagitis K21.9 and Vaginal discharge N89.8 [place] [id number] [place] [address] Oct, Type 2 diabetes mellitus with diabetic polyneuropathy E11.42 [place] [id number] [place] [address] Oct, Hyperlipidemia LDL goal <70 E78.5 [place] [id number] [place] [address] Oct, 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0 [facility] [id number] [place] [address] Oct, [facility] [id number] [place] [address] Oct, Dependent edema R60.9 [facility] [id number] [place] [address] Oct, [facility] [id number] [place] [address] Oct, [facility] [id number] [place] [address] Oct, Type 2 diabetes mellitus with diabetic polyneuropathy E11.42 [facility] [id number] [place] [address] Oct, [facility] [id number] [place] [address] Sep, [facility] [id number] [place] [address] August, [facility] [id number] [place] [address] Jul, [facility] [id number] [place] [address] Jul, Establishing care with new doctor, encounter for Z76.89 ; Type 2 diabetes mellitus with diabetic polyneuropathy E11.42 ; rn long term care 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 Z79.4 ; Hyperlipidemia LDL goal <70 E78.5 ; Essential hypertension I10 and Chest pain, unspecified type R07.9 [facility] [id number] [place] [address] Jul, [facility] [id number] [place] [address] Jul, [facility] [id number] [place] [address] Jun, [facility] [id number] [place] [address] Jun, [place] [id number] [place] [address] Jun, [place] [id number] [place] [address] Jun, Acute hyperglycemia R73.9 ; Type 2 diabetes mellitus with diabetic polyneuropathy E11.42 ; [facility] 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 Z79.4 ; HTN, goal below 130/80 I10 and Hyperlipidemia LDL goal <70 E78.5 [facility] [place] [id number] [place] [address] August, [facility] [place] [id number] [place] [address] August, [facility] [place] [id number] [place] [phone] August, Acute vaginitis N76.0 ; Trichomonas vaginitis A59.01 and Vaginal discharge N89.8 IMMUNIZATIONS No Known Immunizations SOCIAL HISTORY Never Assessed REASON FOR VISIT Hospital f/u, PT reports she went to the ER on Wednesday 11/22 due to severe chest pain and was admitted into the ICU for the severe pain as well as hyperglycemia and was released Sunday. PT notes she went back to the ER on Sunday due to the same pains -Aroldo STUART , PT was prescribed Isosorbide 30mg, and Pantoprazole 40mg at [facility] but needs a script for our pharamacy. PT is unsure if she needs to start these medicaitons as well due to some confusion at the hospital. -aroldo STUART PLAN OF CARE Activity Details Follow Up 2 Weeks Reason: VITAL SIGNS Height 62 in 2017-11-27 Weight 142.5 lbs 2017-11-27 Heart Rate 88 bpm 2017-11-27 Respiratory Rate 18 2017-11-27 Oximetry 98 % 2017-11-27 BMI 26.06 kg/m2 2017-11-27 Blood pressure systolic 115 mmHg 2017-11-27 Blood pressure diastolic 70 mmHg 2017-11-27 MEDICATIONS Medication Instructions Dosage Frequency Start Date End Date Duration Status Pen Verona 31G X 6 MM Active Atorvastatin Calcium 80 MG Orally Once a day 1 tablet 24h 30 days Active Lisinopril 5 mg Orally Once a day 1 tablet 24h Jul, 30 day(s) Active Metformin HCl 1000 MG Orally Twice a day 1 tablet with meals 12h 30 days Active Blood Glucose Test Strip test strips One Touch Verio strip and Delica lancet 3 times a day test blood sugar 8h Jun, 30 days Active Topamax 25 MG Orally Once a day at bedtime 1 tablet Nov, 30 day(s) Active Lasix 20 mg Orally Once a day 1 tablet 24h Oct, 03 days Active Pantoprazole Sodium 40 MG Active Plavix 75 MG Orally Once a day 1 tablet 24h Oct, Active Levemir FlexTouch 100 UNIT/ML Subcutaneous 2 times a day 18 Units 12h Active Humalog KwikPen 100 UNIT/ML Subcutaneous 3 times a day before meals Inject 15 Units with meals Active Blood Glucose Monitor System w/Device as directed Jun, Active Pantoprazole Sodium 40 mg Orally Once a day 1 tablet 24h Nov, 30 day(s) Active Aspirin 81 81 MG Orally Once a day 1 tablet 24h Active Zantac 150 MG Orally Once a day 1 tablet at bedtime 24h Oct, 30 day(s) Active Isosorbide Mononitrate ER 30 MG Orally Once a day 1 tablet in the morning 24h Nov, 30 day(s) Active Zoloft 50 mg Orally Once a day 1 tablet 24h Nov, 30 day(s) Active Isosorbide Mononitrate ER 30 MG Orally Once a day 1 tablet in the morning 24h Active RESULTS No Results PROCEDURES No Known [...]
--- OUTSIDE RECORDS SUMMARY | 2018-01-09 00:18 | XMS REPORT ---
Author Author NEW LE Organization [facility] Address [address] [place] [address] Care Team Providers Care Beach Expert Name Role Phone NEW LE Unavailable PROBLEMS Type Condition ICD9-CM Code XTB22-RW Code Onset Dates Condition Status SNOMED Code Problem Atherosclerotic heart disease of [place] coronary artery without angina pectoris I25.10 Active 151679580 Problem Coronary artery disease involving [place] heart with angina pectoris, unspecified vessel or lesion type I25.119 Active 62599893 Problem Cigarette smoker F17.210 Active 02920865 Problem Atherosclerotic heart disease of [place] coronary artery with unstable angina pectoris I25.110 Active [id number] Problem Restless leg syndrome G25.81 Active 35623641 Problem PTSD (post-traumatic stress disorder) F43.10 Active 74154270 Problem Gastroesophageal reflux disease without esophagitis K21.9 Active 451495230 Problem Coronary artery disease involving [place] coronary artery of [place] heart with angina pectoris I25.119 Active 6981378865865 Problem Moderate episode of recurrent major depressive disorder F33.1 Active 753849877 Problem Elevated BUN R79.9 Active 761807671 Problem Type 2 diabetes mellitus with diabetic polyneuropathy E11.42 Active 66936131 Problem Hyperlipidemia LDL goal <70 E78.5 Active 47262798 Problem PVC (premature ventricular contraction) I49.3 Active 90773776 Problem Chest pain, unspecified type R07.9 Active 48686314 Problem jigman 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 Z79.4 Active 455605879 Problem Essential hypertension I10 Active 20355699 ALLERGIES No Information ENCOUNTERS Encounter Location Date Diagnosis [facility] [id number], [place] [address] Jan, [facility] [id number] [address] Dec, [facility] [id number] [place] [address]388[address] Dec, [place] [address] [place] [address]2299- 8693 Dec, Type 2 diabetes mellitus with diabetic polyneuropathy E11.42 and Atherosclerotic heart disease of [place] coronary artery with unstable angina pectoris I25.110 [place] [address] [place] [address] 30493- 5285 Dec, Bilateral hand numbness R20.0 [place] [id number] [place] [address] 88958- 7805 Dec, Moderate episode of recurrent major depressive disorder F33.1 ; Type 2 diabetes mellitus with diabetic polyneuropathy E11.42 ; jigman 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 Z79.4 ; Hyperlipidemia LDL goal <70 E78.5 ; Chest pain, unspecified type R07.9 ; Atherosclerotic heart disease of [place] coronary artery without angina pectoris I25.10 ; Cigarette smoker F17.210 ; Gastroesophageal reflux disease without esophagitis K21.9 and Restless leg syndrome G25.81 [place] [id number] [place] [address] 74038- 9026 18 Dec, 2017 PTSD (post-traumatic stress disorder) F43.10 and Moderate episode of recurrent major depressive disorder F33.1 [place] [address] [place] [address] 99205- 2028 11 Dec, 2017 Moderate episode of recurrent major depressive disorder F33.1 [place] [address] [place] [address] 70134- 5734 Dec, [place] [address] [place] [address] 25011- 4516 Dec, [place] [id number] [place] [address] 03862- 9637 Dec, Uncontrolled type 2 diabetes mellitus with hyperglycemia E11.65 and Flatulence/gas pain/belching R14.0 [place] [address] [place] [address] 64929- 6548 Nov, [place] [address], [place] [address] Nov, PTSD (post-traumatic stress disorder) F43.10 and Moderate episode of recurrent major depressive disorder F33.1 [place] [id number] [place] [address] 48558- 3173 Nov, Chest pain, unspecified type R07.9 ; Coronary artery disease involving [place] coronary artery of [place] heart with angina pectoris I25.119 ; Restless leg syndrome G25.81 ; Hospital discharge follow-up Z09 and Type 2 diabetes mellitus with diabetic polyneuropathy E11.42 [place] [id number] [place] [address] 91404- 0985 Nov, Hyperlipidemia LDL goal <70 E78.5 [place] [id number] [place] [address] 81428- 7338 Nov, Hospital discharge follow-up Z09 ; Chest pain, unspecified type R07.9 ; Coronary artery disease involving [place] coronary artery of [place] heart with angina pectoris I25.119 and Gastroesophageal reflux disease without esophagitis K21.9 [place] [id number] [place] [address] 34665- 9552 Nov, PTSD (post-traumatic stress disorder) F43.10 and Moderate episode of recurrent major depressive disorder F33.1 [place] [address] [place] [address] 90221- 1634 Oct, Type 2 diabetes mellitus with diabetic polyneuropathy E11.42 [place] [id number] [place] [address] 73042- 3882 Oct, Diarrhea, unspecified type R19.7 ; Gastroesophageal reflux disease without esophagitis K21.9 and Vaginal discharge N89.8 [place] [id number] [place] [address] 10817- 4506 Oct, Type 2 diabetes mellitus with diabetic polyneuropathy E11.42 [place] [id number] [place] [address] 66960- 7216 Oct, Hyperlipidemia LDL goal <[address] [facility] [id number] [place] [address] 83567- 1839 Oct, Atherosclerotic heart disease of [place] coronary artery without angina pectoris I25.10 ; Coronary artery disease involving [place] heart with angina pectoris, unspecified vessel or lesion type I25.119 ; Type 2 diabetes mellitus with diabetic polyneuropathy E11.42 ; Hyperlipidemia LDL goal <70 E78.5 ; Cigarette smoker F17.210 and Post-traumatic stress reaction F43.10 [facility] [id number] [place] [address] 86002- 5711 Oct, [facility] [address] [address] Oct, Difficulty breathing R06.89 ; Hospital discharge follow-up Z09 and Bilateral lower extremity edema R60.0 [facility] [id number] [place] [address] 18613- 6947 Oct, [facility] [id number] [place] [address] 20060 -5102 Oct, Dependent edema R60.9 [facility] [id number] [place] [address] 11463- 7998 Oct, [facility] [id number] [place] [address] 38507- 2240 Oct, [facility] [id number] [place] [address] 91578- 5070 Oct, Type 2 diabetes mellitus with diabetic polyneuropathy E11.42 [facility] [id number] [place] [address] 64702- 3102 Oct, [facility] [id number] [place] [address] 80118- 0735 Sep, [facility] [id number] [place] [address] 72973- 5922 August, [facility] [id number] [place] [address] 62198- 6955 Jul, [facility] [address], [place] [address] Jul, Establishing care with new doctor, encounter for Z76.89 ; Type 2 diabetes mellitus with diabetic polyneuropathy E11.42 ; jigman 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 Z79.4 ; Hyperlipidemia LDL goal <70 E78.5 ; Essential hypertension I10 and Chest pain, unspecified type R07.9 [facility] [id number] [place] [address] 10439- 1726 Jul, [facility] [id number] [place] [address] 48663- 0046 Jul, [facility] [id number] [place] [address] 11598- 9464 Jun, [place] [id number] [place] [address] 86545- 2022 Jun, [facility] [id number] [place] [address] 54786- 8645 Jun, [facility] [address] [place] [address] 28514- 4979 Jun, Acute hyperglycemia R73.9 ; Type 2 diabetes mellitus with diabetic polyneuropathy E11.42 ; [facility] 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 Z79.4 ; HTN, goal below 130/80 I10 and Hyperlipidemia LDL goal <70 E78.5 [facility] [address], [place] [address] August, [facility] [address], [place] [address] August, [facility] [id number] [place] [address] 20607 -0356 August, Acute vaginitis N76.0 ; Trichomonas vaginitis A59.01 and Vaginal discharge N89.8 IMMUNIZATIONS No Known Immunizations SOCIAL HISTORY Never Assessed REASON FOR VISIT hospital orders PLAN OF CARE VITAL SIGNS MEDICATIONS Medication Instructions Dosage Frequency Start Date End Date Duration Status Aspirin 81 81 MG Orally Once a day 1 tablet 24h 19 Jan, 2018 30 days Active Ranolazine ER 500 mg Orally Twice a day 1 tablet 12h Nov, 30 day(s) Active Lisinopril 5 mg Orally Once a day 1 tablet 24h Jul, 30 day(s) Active Atorvastatin Calcium 80 MG Orally Once a day 1 tablet 24h 30 days Active Plavix 75 MG Orally Once a day 1 tablet 24h Oct, 30 days Active RESULTS No Results PROCEDURES No Known procedures INSTRUCTIONS MEDICATIONS ADMINISTERED No Known Medications MEDICAL (GENERAL) HISTORY Type Description Date Medical History Type 2 diabetes mellitus with diabetic polyneuropathy Medical History jigman 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
--- OUTSIDE RECORDS SUMMARY | 2018-01-09 00:19 | XMS REPORT ---
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3 Active 38018925 Problem custodial 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 Z79.4 Active 361718723 Problem Elevated BUN R79.9 Active 701328825 Problem Essential hypertension I10 Active 56961944 ALLERGIES Substance Reaction Event Type Date Status Adhesive Bandages Unknown Drug Allergy Nov, Active Toradol Unknown Non Drug Allergy Nov, Active ENCOUNTERS Encounter Location Date Diagnosis [facility] [address] [facility] [id number] [address] Dec, [facility] [address] [facility] [id number] [address] Dec, [facility] [address], [place] [address] 18 Dec, 2017 [place] [id number] [place] [address] 70729- 2093 11 Dec, 2017 Moderate episode of recurrent major depressive disorder F33.1 [place] [id number] [place] [address] 88697- 9345 Dec, [place] [id number] [place] [address] 77119- 9525 Dec, [place] [id number] [place] [address] 70635- 0474 Dec, Uncontrolled type 2 diabetes mellitus with hyperglycemia E11.65 and Flatulence/gas pain/belching R14.0 [place] [id number] [place] [address] 41795- 3417 Nov, [place] [id number] [place] [address] 17020- 8499 Nov, PTSD (post-traumatic stress disorder) F43.10 and Moderate episode of recurrent major depressive disorder F33.1 [place] [id number] [place] [address] 06127- 5472 Nov, Chest pain, unspecified type R07.9 ; 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 ; Restless leg syndrome G25.81 ; Hospital discharge follow-up Z09 and Type 2 diabetes mellitus with diabetic polyneuropathy E11.42 [place] [id number] [place] [address] 06857- 7330 20 Nov, 2017 Hyperlipidemia LDL goal <70 E78.5 [place] [id number] [place] [address] 69220- 5932 14 Nov, 2017 Hospital discharge follow-up Z09 ; Chest pain, unspecified type R07.9 ; 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 and Gastroesophageal reflux disease without esophagitis K21.9 [place] [id number] [place] [address] 04205- 4689 Nov, PTSD (post-traumatic stress disorder) F43.10 and Moderate episode of recurrent major depressive disorder F33.1 [place] [id number] [place] [address] 75360- 4461 Oct, Type 2 diabetes mellitus with diabetic polyneuropathy E11.42 [place] [address] [address]- [address]197 Oct, Diarrhea, unspecified type R19.7 ; Gastroesophageal reflux disease without esophagitis K21.9 and Vaginal discharge N89.8 [place] [address] 86978- 1611 Oct, Type 2 diabetes mellitus with diabetic polyneuropathy E11.42 [place] [address] 55847- 5736 Oct, Hyperlipidemia LDL goal <[address] 84009- 0336 Oct, Atherosclerotic heart disease of [place] coronary artery without angina pectoris I25.10 ; Coronary artery disease involving [place] heart with angina pectoris, unspecified vessel or lesion type I25.119 ; Type 2 diabetes mellitus with diabetic polyneuropathy E11.42 ; Hyperlipidemia LDL goal <70 E78.5 ; Cigarette smoker F17.210 and Post-traumatic stress reaction F43.10 [place] [id number] [place] [address] 79395- 5215 Oct, [place] [id number] [place] [address] 64352- 3678 Oct, Difficulty breathing R06.89 ; Hospital discharge follow-up Z09 and Bilateral lower extremity edema R60.[address] 84695- 3885 Oct, [facility] [id number] [place] [address] 10643 -7679 Oct, Dependent edema R60.[address] [id number] [address] Oct, [facility] [address], [place] [address]- 7[address] Oct, [facility] [address], [place] [address]- 8107 Oct, Type 2 diabetes mellitus with diabetic polyneuropathy E11.42 [facility] [id number] [address]- 7360 Oct, [facility] [address] [place] [address] 78129- 7352 Sep, [facility] [id number] [place] [address] 69378- 3802 August, [facility] [id number], [place] [address]- 8[address] Jul, [facility] [address], [place] [address] Jul, Establishing care with new doctor, encounter for Z76.89 ; Type 2 diabetes mellitus with diabetic polyneuropathy E11.42 ; 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 ; Hyperlipidemia LDL goal <70 E78.5 ; Essential hypertension I10 and Chest pain, unspecified type R07.9 [facility] [address], [place] [address] Jul, [facility] [address], [place] [address] 3058 Jul, [facility] [address], [place] [address]- 9672 Jun, [facility] [address], [place] [address]- 0394 Jun, [facility] [id number], [place] [address]- 5[address] Jun, [facility] [address], [place] [address]- 18[address] Jun, Acute hyperglycemia R73.9 ; Type 2 diabetes mellitus with diabetic polyneuropathy E11.42 ; custodial 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 Z79.4 ; HTN, goal below 130/80 I10 and Hyperlipidemia LDL goal <70 E78.5 [facility] [id number], [place] [address] August, [facility] [id number], [place] [address] August, [facility] [id number], [place] [address] August, Acute vaginitis N76.0 ; Trichomonas vaginitis A59.01 and Vaginal discharge N89.8 IMMUNIZATIONS No Known Immunizations SOCIAL HISTORY Never Assessed REASON FOR VISIT intake Leigha PLAN OF CARE Activity Details Follow Up 3 Weeks Reason: Follow-up VITAL SIGNS Height 62 in 2017-11-20 Weight 149.7 lbs 2017-11-20 Heart Rate 120 bpm 2017-11-20 Respiratory Rate 18 2017-11-20 BMI 27.38 kg/m2 2017-11-20 Blood pressure systolic 116 mmHg 2017-11-20 Blood pressure diastolic 78 mmHg 2017-11-20 MEDICATIONS Medication Instructions Dosage Frequency Start Date End Date Duration Status Blood Glucose Monitor System w/Device as directed Jun, Active Lisinopril 5 mg Orally Once a day 1 tablet 24h Jul, 30 day(s) Active Plavix 75 MG Orally Once a day 1 tablet 24h Oct, Active Topamax 25 MG Orally Once a day at bedtime 1 tablet Nov, 30 day(s) Active Humalog KwikPen 100 UNIT/ML Subcutaneous 3 times a day before meals Inject 15 Units with meals Active Blood Glucose Test Strip test strips One Touch Verio strip and Delica lancet 3 times a day test blood sugar 8h Jun, 30 days Active Lasix 20 mg Orally Once a day 1 tablet 24h Oct, 03 days Active Pen [place] 31G X 6 MM Active Levemir FlexTouch 100 UNIT/ML Subcutaneous 2 times a day 18 Units 12h Active Atorvastatin Calcium 80 MG Orally Once a day 1 tablet 24h 30 days Active Labetalol HCl 100 mg Orally 2 times a day 1 tablet 12h 30 days Not- Taking Aspirin 81 81 MG Orally Once a day 1 tablet 24h Active Zantac 150 MG Orally Once a day 1 tablet at bedtime 24h Oct, 30 day(s) Active Metformin HCl 1000 MG Orally Twice a day 1 tablet with meals 12h 30 days Active Zoloft 50 mg Orally Once a day 1 tablet 24h Nov, 30 day(s) Active RESULTS No Results PROCEDURES [...]
--- OUTSIDE RECORDS SUMMARY | 2018-01-09 00:19 | XMS REPORT ---
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 Active 2430846661247 Problem Gastroesophageal reflux disease without esophagitis K21.9 Active 343746431 Problem Coronary artery disease involving [place] heart with angina pectoris, unspecified vessel or lesion type I25.119 Active 97446365 Problem Moderate episode of recurrent major depressive disorder F33.1 Active 249177509 Problem PTSD (post-traumatic stress disorder) F43.10 Active 59978821 Problem Hyperlipidemia LDL goal <70 E78.5 Active 83653353 Problem Type 2 diabetes mellitus with diabetic polyneuropathy E11.42 Active 02782434 Problem PVC (premature ventricular contraction) I49.3 Active 19450650 Problem buttermaker 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 Z79.4 Active 597071708 Problem Elevated BUN R79.9 Active 634166598 Problem Essential hypertension I10 Active 97292315 ALLERGIES Substance Reaction Event Type Date Status Adhesive Bandages Unknown Drug Allergy Oct, Active Toradol Unknown Non Drug Allergy Oct, Active ENCOUNTERS Encounter Location Date Diagnosis [facility] [address] [facility] [id number] [address] Dec, [facility] [id number] [address] Dec, [facility] [id number] [place] [address] 82606- 9431 18 Dec, 2017 [place] [id number] [place] [address] 96606- 1497 11 Dec, 2017 Moderate episode of recurrent major depressive disorder F33.1 [place] [id number] [place] [address] 94474- 0842 10 Dec, 2017 [place] [address] [address] Dec, [place] [id number] [place] [address] 83350- 1830 Dec, Uncontrolled type 2 diabetes mellitus with hyperglycemia E11.65 and Flatulence/gas pain/belching R14.0 [place] [id number] [place] [address] 44483- 3748 Nov, [place] [address] [address] Nov, PTSD (post-traumatic stress disorder) F43.10 and Moderate episode of recurrent major depressive disorder F33.1 [place] [id number] [place] [address] 21402- 3701 Nov, Chest pain, unspecified type R07.9 ; 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 ; Restless leg syndrome G25.81 ; Hospital discharge follow-up Z09 and Type 2 diabetes mellitus with diabetic polyneuropathy E11.42 [place] [id number] [place] [address] 81936- 9418 Nov, Hyperlipidemia LDL goal <70 E78.5 [place] [address] 04175- 3553 14 Nov, 2017 Hospital discharge follow-up Z09 ; Chest pain, unspecified type R07.9 ; 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 and Gastroesophageal reflux disease without esophagitis K21.9 [place] [id number] [place] [address] 34019- 0828 Nov, PTSD (post-traumatic stress disorder) F43.10 and Moderate episode of recurrent major depressive disorder F33.1 [place] [id number] [place] [address] 31054- 9743 Oct, Type 2 diabetes mellitus with diabetic polyneuropathy E11.42 [place] [id number] [place] [address] 46503- 6440 Oct, Diarrhea, unspecified type R19.7 ; Gastroesophageal reflux disease without esophagitis K21.9 and Vaginal discharge N89.8 [place] [id number] [place] [address] 92402- 4651 Oct, Type 2 diabetes mellitus with diabetic polyneuropathy E11.42 [place] [id number] [place] [address] 36297- 7201 Oct, Hyperlipidemia LDL goal <70 E78.5 [place] [id number] [place] [address] 47213- 6804 Oct, Atherosclerotic heart disease of [place] coronary artery without angina pectoris I25.10 ; Coronary artery disease involving [place] heart with angina pectoris, unspecified vessel or lesion type I25.119 ; Type 2 diabetes mellitus with diabetic polyneuropathy E11.42 ; Hyperlipidemia LDL goal <70 E78.5 ; Cigarette smoker F17.210 and Post-traumatic stress reaction F43.10 [place] [address] [place] [address] 43515- 7475 Oct, [place] [id number] [place] [address] 69035- 6638 Oct, Difficulty breathing R06.89 ; Hospital discharge follow-up Z09 and Bilateral lower extremity edema R60.0 [place] [id number] [place] [address] 00157- 6718 Oct, [facility] [id number] [place] [address] 77146 -2140 05 Oct, 2017 Dependent edema R60.9 [place] [id number] [address] Oct, [facility] [address] [address] Oct, [facility] [address] [address] Oct, Type 2 diabetes mellitus with diabetic polyneuropathy E11.42 [facility] [id number] [place] [address] 52740- 4283 Oct, [facility] [address] [place] [address] 68007- 5165 Sep, [facility] [id number] [place] [address] 97056- 8329 August, [facility] [id number] [place] [address] 14583- 3750 Jul, [facility] [id number] [place] [address] 56460- 9226 Jul, Establishing care with new doctor, encounter for Z76.89 ; Type 2 diabetes mellitus with diabetic polyneuropathy E11.42 ; alf 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 Z79.4 ; Hyperlipidemia LDL goal <70 E78.5 ; Essential hypertension I10 and Chest pain, unspecified type R07.9 [facility] [address] [address] Jul, [facility] [address] [address] Jul, [facility] [address] [address] Jun, [facility] [id number] [address] 4051 Jun, [facility] [address] [address] 7[address] Jun, [facility] [address] [address] 0744 Jun, Acute hyperglycemia R73.9 ; Type 2 diabetes mellitus with diabetic polyneuropathy E11.42 ; alf 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 Z79.4 ; HTN, goal below 130/80 I10 and Hyperlipidemia LDL goal <70 E78.5 [facility] [address] [facility] [id number] [address] August, [facility] [address] [facility] [id number] [address] August, [facility] [address] [facility] [id number] [address] August, Acute vaginitis N76.0 ; Trichomonas vaginitis A59.01 and Vaginal discharge N89.8 IMMUNIZATIONS No Known Immunizations SOCIAL HISTORY Never Assessed REASON FOR VISIT Diarrhea-SADE benavides PLAN OF CARE Activity Details Follow Up prn Reason:diarrhea VITAL SIGNS Height 62 in 2017-11-08 Weight 152.7 lbs 2017-11-08 Temperature 98.3 degrees Fahrenheit 2017-11-08 Heart Rate 105 bpm 2017-11-08 Respiratory Rate 20 2017-11-08 BMI 27.93 kg/m2 2017-11-08 Blood pressure systolic 118 mmHg 2017-11-08 Blood pressure diastolic 72 mmHg 2017-11-08 MEDICATIONS Medication Instructions Dosage Frequency Start Date End Date Duration Status Blood Glucose Monitor System w/Device as directed Jun, Active Plavix 75 MG Orally Once a day 1 tablet 24h Oct, Active Labetalol HCl 100 mg Orally 2 times a day 1 tablet 12h 30 days Active Pen [place] 31G X 6 MM Active Atorvastatin Calcium 80 MG Orally Once a day 1 tablet 24h 30 days Active Humalog KwikPen 100 UNIT/ML Subcutaneous 3 times a day before meals Inject 15 Units with meals Active Blood Glucose Test Strip Test Strips One Touch Verio strip and Delica lancet 3 times a day test blood sugar 8h Jun, 30 days Active Lisinopril 5 mg Orally Once a day 1 tablet 24h Jul, 30 day(s) Active Metformin HCl 1000 MG Orally Twice a day 1 tablet with meals 12h 30 days Active Aspirin 81 81 MG Orally Once a day 1 tablet 24h Active Fluoxetine HCl 20 MG Orally Once a day 1 capsule in the morning 24h Not-Taking Zantac 150 MG Orally Once a day 1 tablet at bedtime 24h Oct, 30 day(s) Active Levemir FlexTouch 100 UNIT/ML Subcutaneous 2 times a day 18 Units 12h Active Lasix 20 mg Orally Once a day 1 tablet 24h Oct, 03 days Not- Taking RESULTS No Results PROCEDURES No Known procedures INSTRUCTIONS MEDICATIONS ADMINISTERED No Known Medications MEDICAL (GENERAL) HISTORY Type Description Date Medical History Type 2 diabetes mellitus with diabetic polyneuropathy Medical History alf 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
--- OUTSIDE RECORDS SUMMARY | 2018-01-09 00:19 | XMS REPORT ---
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 Active 0272221860771 Problem Gastroesophageal reflux disease without esophagitis K21.9 Active 562018152 Problem Coronary artery disease involving [place] heart with angina pectoris, unspecified vessel or lesion type I25.119 Active 20861840 Problem Moderate episode of recurrent major depressive disorder F33.1 Active 841521418 Problem PTSD (post-traumatic stress disorder) F43.10 Active 62527857 Problem Hyperlipidemia LDL goal <70 E78.5 Active 14816736 Problem Type 2 diabetes mellitus with diabetic polyneuropathy E11.42 Active 59910105 Problem PVC (premature ventricular contraction) I49.3 Active 08026659 Problem 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 Active 350739538 Problem Elevated BUN R79.9 Active 513242900 Problem Essential hypertension I10 Active 79519432 ALLERGIES Substance Reaction Event Type Date Status Adhesive Bandages Unknown Drug Allergy Oct, Active Toradol Unknown Non Drug Allergy Oct, Active ENCOUNTERS Encounter Location Date Diagnosis [facility] [address] [facility] [id number] [address] Dec, [facility] [id number] [address] Dec, [facility] [id number] [place] [address] 50873- 7595 Dec, [place] [id number] [place] [address] 76454- 3757 Dec, Uncontrolled type 2 diabetes mellitus with hyperglycemia E11.65 and Flatulence/gas pain/belching R14.0 [place] [id number] [place] [address] 54209- 8295 Nov, [place] [address] [address]- 4334 Nov, PTSD (post-traumatic stress disorder) F43.10 and Moderate episode of recurrent major depressive disorder F33.1 [place] [id number] [place] [address] 43903- 3042 Nov, Chest pain, unspecified type R07.9 ; 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 ; Restless leg syndrome G25.81 ; Hospital discharge follow-up Z09 and Type 2 diabetes mellitus with diabetic polyneuropathy E11.42 [place] [id number] [place] [address] 17688- 0158 Nov, Hyperlipidemia LDL goal <70 E78.5 [place] [id number] [place] [address] 36664- 1875 14 Nov, 2017 Hospital discharge follow-up Z09 ; Chest pain, unspecified type R07.9 ; 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 and Gastroesophageal reflux disease without esophagitis K21.9 [place] [id number] [place] [address] 36469- 1150 07 Nov, 2017 PTSD (post-traumatic stress disorder) F43.10 and Moderate episode of recurrent major depressive disorder F33.1 [place] [id number] [place] [address] 05606- 9495 Oct, Type 2 diabetes mellitus with diabetic polyneuropathy E11.42 [place] [id number] [place] [address] 62107- 9864 Oct, Diarrhea, unspecified type R19.7 ; Gastroesophageal reflux disease without esophagitis K21.9 and Vaginal discharge N89.8 [place] [id number] [place] [address] 44179- 5686 Oct, Type 2 diabetes mellitus with diabetic polyneuropathy E11.42 [place] [id number] [place] [address] 29322- 5321 Oct, Hyperlipidemia LDL goal <70 E78.5 [place] [id number] [place] [address] 23236- 2491 Oct, Atherosclerotic heart disease of [place] coronary artery without angina pectoris I25.10 ; Coronary artery disease involving [place] heart with angina pectoris, unspecified vessel or lesion type I25.119 ; Type 2 diabetes mellitus with diabetic polyneuropathy E11.42 ; Hyperlipidemia LDL goal <70 E78.5 ; Cigarette smoker F17.210 and Post-traumatic stress reaction F43.10 [place] [id number] [place] [address] 95562- 1997 Oct, [place] [id number] [place] [address] 47497- 6269 Oct, Difficulty breathing R06.89 ; Hospital discharge follow-up Z09 and Bilateral lower extremity edema R60.0 [place] [id number] [place] [address] 10390- 9803 Oct, [facility] [id number] [place] [address] 36386 -1678 Oct, Dependent edema R60.9 [facility] [id number] [place] [address] 76348- 4568 Oct, [place] [id number] [place] [address] 49109- 4554 Oct, [place] [id number] [place] [address] 56981- 1634 Oct, Type 2 diabetes mellitus with diabetic polyneuropathy E11.42 [place] [address] Oct, [facility] [address] [address]- 8746 Sep, [facility] [address] [address]- 1135 August, [facility] [address] [address]- 5573 Jul, [facility] [address] [address]- 9589 Jul, Establishing care with new doctor, encounter for Z76.89 ; Type 2 diabetes mellitus with diabetic polyneuropathy E11.42 ; [facility] 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 Z79.4 ; Hyperlipidemia LDL goal <70 E78.5 ; Essential hypertension I10 and Chest pain, unspecified type R07.9 [facility] [address] [address]- 4873 Jul, [facility] [address] [address]- 4768 Jul, [facility] [address] [address]- 4505 Jun, [facility] [address] [address]- 2482 Jun, [facility] [address] [address]- 70[address] Jun, [facility] [id number] [address]- 2181 Jun, Acute hyperglycemia R73.9 ; Type 2 diabetes mellitus with diabetic polyneuropathy E11.42 ; 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 [id number] [address] August, [facility] [address] [address] August, [facility] [address] [facility] [id number] [place] [address] August, Acute vaginitis N76.0 ; Trichomonas vaginitis A59.01 and Vaginal discharge N89.8 IMMUNIZATIONS No Known Immunizations SOCIAL HISTORY Never Assessed REASON FOR VISIT VC Hosp follow up-SADE benavides PLAN OF CARE Activity Details Follow Up 3 Months Reason:DM, CAD check up VITAL SIGNS Height 62 in 2017-11-01 Weight 150.7 lbs 2017-11-01 Temperature 98.2 degrees Fahrenheit 2017-11-01 Heart Rate 95 bpm 2017-11-01 Respiratory Rate 20 2017-11-01 BMI 27.56 kg/m2 2017-11-01 Blood pressure systolic 122 mmHg 2017-11-01 Blood pressure diastolic 84 mmHg 2017-11-01 MEDICATIONS Medication Instructions Dosage Frequency Start Date End Date Duration Status Aspirin 81 81 MG Orally Once a day 1 tablet 24h Active Blood Glucose Monitor System w/Device as directed Jun, Active Labetalol HCl 100 mg Orally 2 times a day 1 tablet 12h 30 days Active Humalog KwikPen 100 UNIT/ML Subcutaneous 3 times a day Inject 10 Units with meals 8h Active Lisinopril 5 mg Orally Once a day 1 tablet 24h Jul, 30 day(s) Active Blood Glucose Test Strip Test Strips One Touch Verio strip and Delica lancet 3 times a day test blood sugar 8h Jun, 30 days Not-Taking Levemir FlexTouch 100 UNIT/ML Subcutaneous 2 times a day 15 Units 12h Active Lasix 20 mg Orally Once a day 1 tablet 24h Oct, 03 days Not- Taking Plavix 75 MG Orally Once a day 1 tablet 24h Oct, Active Metformin HCl 1000 MG Orally Twice a day 1 tablet with meals 12h 30 days Active Pen [place] 31G X 6 MM Active Fluoxetine HCl 20 MG Orally Once a day 1 capsule in the morning 24h Not-Taking Atorvastatin Calcium 80 MG Orally Once a day 1 tablet 24h 30 days Active RESULTS No Results PROCEDURES Procedure Date Ordered Result Body Site COMPLETE CBC W/AUTO DIFF WBC November 01, 2017 MICROALBUMIN, QUANTITATIVE November 01, 2017 ASSAY OF URINE CREATININE November 01, 2017 LIPID PANEL November 01, 2017 COMPREHEN METABOLIC PANEL November 01, 2017 GLYCATED HEMOGLOBIN TEST November 01, 2017 MICROALBUMIN, SEMIQUANT November 01, 2017 INSTRUCTIONS MEDICATIONS ADMINISTERED No Known Medications [...]
--- OUTSIDE RECORDS SUMMARY | 2018-01-09 00:19 | XMS REPORT ---
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.119 Active 1778936902763 Problem Gastroesophageal reflux disease without esophagitis K21.9 Active 457631041 Problem Coronary artery disease involving chilkoot heart with angina pectoris, unspecified vessel or lesion type I25.119 Active 51914279 Problem Moderate episode of recurrent major depressive disorder F33.1 Active 922998664 Problem PTSD (post-traumatic stress disorder) F43.10 Active 81883406 Problem Hyperlipidemia LDL goal <70 E78.5 Active 33282202 Problem Type 2 diabetes mellitus with diabetic polyneuropathy E11.42 Active 32701234 Problem PVC (premature ventricular contraction) I49.3 Active 45176222 Problem [facility] 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 Z79.4 Active 830118135 Problem Elevated BUN R79.9 Active 930673100 Problem Essential hypertension I10 Active 55625333 ALLERGIES No Information ENCOUNTERS Encounter Location Date Diagnosis [facility] [address], [place] [address] Dec, [facility] [address] [place] [address] 28556- 1304 11 Dec, 2017 [facility] [address], [place] [address] Dec, [place] [address], [place] [address] Dec, [place] [address] [place] [id number] [place] [address] 01609- 5462 Dec, Uncontrolled type 2 diabetes mellitus with hyperglycemia E11.65 and Flatulence/gas pain/belching R14.0 [place] [address] [place] [id number] [place] [address] 80810- 1026 Nov, [place] [address] [place] [id number] [place] [address] 60522- 3741 Nov, PTSD (post-traumatic stress disorder) F43.10 and Moderate episode of recurrent major depressive disorder F33.1 [place] [address] [place] [id number] [place] [address] 50120- 6335 23 Nov, 2017 Chest pain, unspecified type R07.9 ; 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9 [place] [address] [place] [id number] [place] [address] 80236- 3081 07 Nov, 2017 PTSD (post-traumatic stress disorder) F43.10 and Moderate episode of recurrent major depressive disorder F33.1 [place] [address] [place] [id number] [place] [address] 93870- 4939 Oct, Type 2 diabetes mellitus with diabetic polyneuropathy E11.42 [place] [address] [place] [id number] [place] [address] 10947- 3870 Oct, Diarrhea, unspecified type R19.7 ; Gastroesophageal reflux disease without esophagitis K21.9 and Vaginal discharge N89.8 [place] [address] [place] [id number] [place] [address] 80209- 9938 Oct, Type 2 diabetes mellitus with diabetic polyneuropathy E11.42 [place] [address] [place] [id number] [place] [address] 07179- 8446 Oct, Hyperlipidemia LDL goal <70 E78.5 [place] [address] [place] [id number] [place] [address] 70672- 6087 Oct, 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 ; Coronary artery disease involving chilkoot heart with angina pectoris, unspecified vessel or lesion type I25.119 ; Type 2 diabetes mellitus with diabetic polyneuropathy E11.42 ; Hyperlipidemia LDL goal <70 E78.5 ; Cigarette smoker F17.210 and Post-traumatic stress reaction F43.10 [place] [address] [address]- 2426 Oct, [place] [address] [place] [id number] [place] [address] 42145- 3096 Oct, Difficulty breathing R06.89 ; Hospital discharge follow-up Z09 and Bilateral lower extremity edema R60.0 [place] [address] [place] [id number] [place] [address] 50725- 6267 Oct, [facility] [address] [address] [id number] [place] [address] 07523 -2741 Oct, Dependent edema R60.9 [place] [address] [place] [id number] [place] [address] 83678- 4295 Oct, [place] [address] 3[address]- 5310 Oct, [facility] [address] [place] [id number] [place] [address] 77878- 4745 Oct, Type 2 diabetes mellitus with diabetic polyneuropathy E11.42 [facility] [address], [place] [address] 99[address] Oct, [facility] [address] [id number], [place] [address] Sep, [facility] [address], [place] [address] August, [facility] [address] [place] [address] [id number] [place] [address] 27070- 3386 Jul, [facility] [address], [place] [address] Jul, Establishing care with new doctor, encounter for Z76.89 ; Type 2 diabetes mellitus with diabetic polyneuropathy E11.42 ; [facility] 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 Z79.4 ; Hyperlipidemia LDL goal <70 E78.5 ; Essential hypertension I10 and Chest pain, unspecified type R07.9 [facility] [address], [place] [address] 7[address] Jul, [facility] [address], [place] [address] 0672 Jul, [facility] [address] [place] [address] 76987- 1461 Jun, [facility] [address], [place] [address] 4[address] Jun, [facility] [address], [place] [address] Jun, [facility] [address] [place] [id number] [address] 3206 Jun, Acute hyperglycemia R73.9 ; Type 2 diabetes mellitus with diabetic polyneuropathy E11.42 ; [employer] 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 Z79.4 ; HTN, goal below 130/80 I10 and Hyperlipidemia LDL goal <70 E78.5 [facility] [address], [place] [address] August, [facility] [address] [facility] [id number] [place] [address] August, [facility] [address] [facility] [id number] [place] [address] August, Acute vaginitis N76.0 ; Trichomonas vaginitis A59.01 and Vaginal discharge N89.8 IMMUNIZATIONS No Known Immunizations SOCIAL HISTORY Never Assessed REASON FOR VISIT test strips PLAN OF CARE VITAL SIGNS MEDICATIONS Medication Instructions Dosage Frequency Start Date End Date Duration Status Blood Glucose Test Strip test strips One Touch Verio strip and Delica lancet 3 times a day test blood sugar 8h Jun, 30 days Active RESULTS No Results PROCEDURES No Known procedures INSTRUCTIONS MEDICATIONS ADMINISTERED No Known Medications MEDICAL (GENERAL) HISTORY Type Description Date Medical History Type 2 diabetes mellitus with diabetic polyneuropathy 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
--- OUTSIDE RECORDS SUMMARY | 2018-01-09 00:19 | XMS REPORT ---
Author Author NEW LE Organization [facility] Address [address] [place] [address] Care Team Providers Care Aboriginal Ceremonial Celebrant Name Role Phone NEW LE Unavailable PROBLEMS Type Condition ICD9-CM Code XTK29-PR Code Onset Dates Condition Status SNOMED Code Problem Chest pain, unspecified type R07.9 Active 06872424 Problem Atherosclerotic heart disease of si[place] coronary artery without angina pectoris I25.10 Active 398339129 Problem Cigarette smoker F17.210 Active 96653241 Problem Restless leg syndrome G25.81 Active 15652057 Problem Coronary artery disease involving sioux coronary artery of sioux heart with angina pectoris I25.119 Active 6450403598296 Problem Gastroesophageal reflux disease without esophagitis K21.9 Active 692903747 Problem Coronary artery disease involving sioux heart with angina pectoris, unspecified vessel or lesion type I25.119 Active 85506373 Problem Moderate episode of recurrent major depressive disorder F33.1 Active 969980056 Problem PTSD (post-traumatic stress disorder) F43.10 Active 63170404 Problem Hyperlipidemia LDL goal <70 E78.5 Active 15541063 Problem Type 2 diabetes mellitus with diabetic polyneuropathy E11.42 Active 97549054 Problem PVC (premature ventricular contraction) I49.3 Active 56299349 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 Active 597521885 Problem Elevated BUN R79.9 Active 207615291 Problem Essential hypertension I10 Active 65540268 ALLERGIES No Information ENCOUNTERS Encounter Location Date Diagnosis [facility] [address], [place] [address] Dec, [facility] [address], [place] [address] 4888 Dec, [facility] [address], [place] [address] 5928 Dec, [facility] [address] [place] [id number] [place] [address] 72929- 2773 06 Dec, 2017 Uncontrolled type 2 diabetes mellitus with hyperglycemia E11.65 and Flatulence/gas pain/belching R14.0 [place] [address] [place] [id number] [place] [address] 98904- 3560 Nov, [place] [address] 35[address]- 2043 Nov, PTSD (post-traumatic stress disorder) F43.10 and Moderate episode of recurrent major depressive disorder F33.1 [place] [address] 89798- 7420 Nov, Chest pain, unspecified type R07.9 ; Coronary artery disease involving sioux coronary artery of sioux heart with angina pectoris I25.119 ; Restless leg syndrome G25.81 ; Hospital discharge follow-up Z09 and Type 2 diabetes mellitus with diabetic polyneuropathy E11.42 [place] [address] 48293- 8496 Nov, Hyperlipidemia LDL goal <70 E78.5 [place] [address] 97292- 1446 14 Nov, 2017 Hospital discharge follow-up Z09 ; Chest pain, unspecified type R07.9 ; Coronary artery disease involving sioux coronary artery of sioux heart with angina pectoris I25.119 and Gastroesophageal reflux disease without esophagitis K21.9 [place] [address] [place] [id number] [place] [address] 71722- 2431 Nov, PTSD (post-traumatic stress disorder) F43.10 and Moderate episode of recurrent major depressive disorder F33.1 [place] [address] [place] [id number] [place] [address] 36326- 3196 Oct, Type 2 diabetes mellitus with diabetic polyneuropathy E11.42 [place] [address] [place] [id number] [place] [address] 75528- 3565 Oct, Diarrhea, unspecified type R19.7 ; Gastroesophageal reflux disease without esophagitis K21.9 and Vaginal discharge N89.8 [facility] [address] [place] [address] [id number] [place] [address] 43079- 1406 Oct, Type 2 diabetes mellitus with diabetic polyneuropathy E11.42 [facility] [address] [place] [id number] [place] [address] 41458- 1948 Oct, Hyperlipidemia LDL goal <70 E78.5 [place] [address] [place] [id number] [place] [address] 32164- 1551 Oct, Atherosclerotic heart disease of sioux coronary artery without angina pectoris I25.10 ; Coronary artery disease involving sioux heart with angina pectoris, unspecified vessel or lesion type I25.119 ; Type 2 diabetes mellitus with diabetic polyneuropathy E11.42 ; Hyperlipidemia LDL goal <70 E78.5 ; Cigarette smoker F17.210 and Post-traumatic stress reaction F43.10 [place] [address] [place] [id number] [place] [address] 94060- 0524 Oct, [place] [address] [place] [id number] [place] [address] 85207- 6415 Oct, Difficulty breathing R06.89 ; Hospital discharge follow-up Z09 and Bilateral lower extremity edema R60.0 [place] [address] [place] [id number] [place] [address] 16753- 2238 Oct, [facility] [address] [place] [address] [id number] [place] [address] 53165 -9739 Oct, Dependent edema R60.9 [facility] [address] [place] [id number] [place] [address] 39591- 2672 Oct, [facility] [address] [place] [id number] [place] [address] 29722- 2802 Oct, [place] [address] 03196- 9635 Oct, Type 2 diabetes mellitus with diabetic polyneuropathy E11.42 [place] [address] [place] [id number] [place] [address] 90434- 2724 Oct, [place] [address], [place] [address]- 5955 Sep, [facility] [address] [place] [address] [id number] [place] [address]- 0743 August, [facility] [address], [place] [address]- 5977 Jul, [facility] [address] [place] [id number] [place] [address] 96943- 2326 Jul, Establishing care with new doctor, encounter for Z76.89 ; Type 2 diabetes mellitus with diabetic polyneuropathy E11.42 ; group home 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 Z79.4 ; Hyperlipidemia LDL goal <70 E78.5 ; Essential hypertension I10 and Chest pain, unspecified type R07.9 [facility] [address], [place] [address]- 5526 Jul, [facility] [address] [place] [id number] [place] [address] 14347- 8933 Jul, [facility] [address] [place] [address] 25344- 4137 Jun, [facility] [address] [place] [address] 93975- 4806 Jun, [facility] [address], [place] [address]- 7054 Jun, [facility] [address], [place] [address]- 2036 Jun, Acute hyperglycemia R73.9 ; Type 2 diabetes mellitus with diabetic polyneuropathy E11.42 ; group home 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 Z79.4 ; HTN, goal below 130/80 I10 and Hyperlipidemia LDL goal <70 E78.5 [facility] [address], [place] [address] August, [facility] [address], [place] [address] August, [facility] [address] [facility] [id number] [place] [address] 16 Aug, 2016 Acute vaginitis N76.0 ; Trichomonas vaginitis A59.01 and Vaginal discharge N89.8 IMMUNIZATIONS No Known Immunizations SOCIAL HISTORY Never Assessed REASON FOR VISIT BS f/u; DM ed offered PLAN OF CARE VITAL SIGNS MEDICATIONS Medication Instructions Dosage Frequency Start Date End Date Duration Status Humalog KwikPen 100 UNIT/ML Subcutaneous 3 times a day before meals Inject 15 Units with meals Active Levemir FlexTouch 100 UNIT/ML Subcutaneous 2 times a day 18 Units 12h Active RESULTS No Results PROCEDURES No Known procedures INSTRUCTIONS MEDICATIONS ADMINISTERED No Known Medications MEDICAL (GENERAL) HISTORY Type Description Date Medical History Type 2 diabetes mellitus with diabetic polyneuropathy 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
--- OUTSIDE RECORDS SUMMARY | 2018-01-09 00:20 | XMS REPORT ---
Author Author NEW LE Organization [facility] Address [address] [place] [address] Care Team Providers Care Spark Plug Tester Name Role Phone NEW LE Unavailable PROBLEMS Type Condition ICD9-CM Code WAU20-ZC Code Onset Dates Condition Status SNOMED Code Problem Chest pain, unspecified type R07.9 Active 02198866 Problem Atherosclerotic heart disease of [place] coronary artery without angina pectoris I25.10 Active 680990888 Problem Cigarette smoker F17.210 Active 24851904 Problem Restless leg syndrome G25.81 Active 37242861 Problem Coronary artery disease involving [place] coronary artery of [place] heart with angina pectoris I25.119 Active 9799536774659 Problem Gastroesophageal reflux disease without esophagitis K21.9 Active 582085084 Problem Coronary artery disease involving [place] heart with angina pectoris, unspecified vessel or lesion type I25.119 Active 54671286 Problem Moderate episode of recurrent major depressive disorder F33.1 Active 538613124 Problem PTSD (post-traumatic stress disorder) F43.10 Active 79516699 Problem Hyperlipidemia LDL goal <70 E78.5 Active 64141104 Problem Type 2 diabetes mellitus with diabetic polyneuropathy E11.42 Active 20937025 Problem PVC (premature ventricular contraction) I49.3 Active 74767911 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 Active 031423830 Problem Elevated BUN R79.9 Active 804070707 Problem Essential hypertension I10 Active 24024418 ALLERGIES No Information ENCOUNTERS Encounter Location Date Diagnosis [facility] [address], [place] [address] Dec, [facility] [address], [place] [address]- 4309 Dec, [facility] [address], [place] [address]- 6953 Dec, [facility] [address] [place] [id number] [place] [address] 13099- 1391 06 Dec, 2017 Uncontrolled type 2 diabetes mellitus with hyperglycemia E11.65 and Flatulence/gas pain/belching R14.0 [place] [address] [place] [address] [place] [address] 67311- 6048 Nov, [place] [address] 68936- 7711 Nov, PTSD (post-traumatic stress disorder) F43.10 and Moderate episode of recurrent major depressive disorder F33.1 [place] [address] 25870- 5611 Nov, Chest pain, unspecified type R07.9 ; Coronary artery disease involving [place] coronary artery of [place] heart with angina pectoris I25.119 ; Restless leg syndrome G25.81 ; Hospital discharge follow-up Z09 and Type 2 diabetes mellitus with diabetic polyneuropathy E11.42 [place] [address] 81180- 5256 Nov, Hyperlipidemia LDL goal <70 E78.5 [place] [address] 95091- 8620 14 Nov, 2017 Hospital discharge follow-up Z09 ; Chest pain, unspecified type R07.9 ; Coronary artery disease involving [place] coronary artery of [place] heart with angina pectoris I25.119 and Gastroesophageal reflux disease without esophagitis K21.9 [place] [address] [place] [address] [place] [address] 18775- 6737 Nov, PTSD (post-traumatic stress disorder) F43.10 and Moderate episode of recurrent major depressive disorder F33.1 [place] [address] [place] [address] [place] [address] 93825- 1374 Oct, Type 2 diabetes mellitus with diabetic polyneuropathy E11.42 [place] [address] [place] [address] [place] [address] 49791- 8027 Oct, Diarrhea, unspecified type R19.7 ; Gastroesophageal reflux disease without esophagitis K21.9 and Vaginal discharge N89.8 [facility] [address] [place] [address] [address] [place] [address] 98514- 9708 Oct, Type 2 diabetes mellitus with diabetic polyneuropathy E11.42 [facility] [address] [place] [address] [place] [address] 79136- 1893 Oct, Hyperlipidemia LDL goal <70 E78.5 [place] [address] [place] [address] [place] [address] 82330- 9264 Oct, Atherosclerotic heart disease of [place] coronary artery without angina pectoris I25.10 ; Coronary artery disease involving [place] heart with angina pectoris, unspecified vessel or lesion type I25.119 ; Type 2 diabetes mellitus with diabetic polyneuropathy E11.42 ; Hyperlipidemia LDL goal <70 E78.5 ; Cigarette smoker F17.210 and Post-traumatic stress reaction F43.10 [place] [address] [place] [address] [place] [address] 52680- 7312 Oct, [place] [address] [place] [address] [place] [address] 11561- 5558 Oct, Difficulty breathing R06.89 ; Hospital discharge follow-up Z09 and Bilateral lower extremity edema R60.0 [place] [address] [place] [address] [place] [address] 22131- 1913 Oct, [facility] [address] [place] [address] [id number] [place] [address] 22602 -2172 Oct, Dependent edema R60.9 [facility] [address] [place] [id number] [place] [address] 23003- 1632 Oct, [facility] [address] [place] [address] [place] [address] 30912- 3887 Oct, [place] [address] 47362- 7246 Oct, Type 2 diabetes mellitus with diabetic polyneuropathy E11.42 [place] [address] [place] [address] [place] [address] 55283- 7158 Oct, [place] [address], [place] [address]- 9681 Sep, [facility] [id number] [address]- 9899 August, [facility] [address], [place] [address]- 3114 Jul, [facility] [address] [address] [address] [place] [address] 92608- 6669 Jul, Establishing care with new doctor, encounter for Z76.89 ; Type 2 diabetes mellitus with diabetic polyneuropathy E11.42 ; care home 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 Z79.4 ; Hyperlipidemia LDL goal <70 E78.5 ; Essential hypertension I10 and Chest pain, unspecified type R07.9 [facility] [address], [place] [address]- 14[address] Jul, [facility] [address] [id number] [place] [address] 19785- 9994 Jul, [facility] [address] [place] [address] 65849- 9143 Jun, [facility] [address] [place] [address] 64801- 9797 Jun, [facility] [address], [place] [address]- 4905 Jun, [facility] [address], [place] [address]- 9143 Jun, Acute hyperglycemia R73.9 ; Type 2 diabetes mellitus with diabetic polyneuropathy E11.42 ; care home 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 Z79.4 ; HTN, goal below 130/80 I10 and Hyperlipidemia LDL goal <70 E78.5 [facility] [address], [place] [address] August, [facility] [address], [place] [address] August, [facility] [address] [facility] [id number] [place] [address] August, Acute vaginitis N76.0 ; Trichomonas vaginitis A59.01 and Vaginal discharge N89.8 IMMUNIZATIONS No Known Immunizations SOCIAL HISTORY Never Assessed REASON FOR VISIT lab order PLAN OF CARE VITAL SIGNS MEDICATIONS Unknown Medications RESULTS No Results PROCEDURES No Known procedures INSTRUCTIONS MEDICATIONS ADMINISTERED No Known Medications MEDICAL (GENERAL) HISTORY Type Description Date Medical History Type 2 diabetes mellitus with diabetic polyneuropathy Medical History care home 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 Medical History [...]
[2018-01-09] MEDS ORDERED: TRAM-42 PO (00:42)
--- NOTE | 2018-01-09 00:42 | ED Upper Extremity ---
General Chief Complaint: Upper Extremity Stated Complaint: HAND NOT WORKING,NUMB,PAIN SHOOTING UP ARMS Source: patient Exam Limitations: no limitations History of Present Illness Date Seen by Provider: Jan 09, 2018 Time Seen by Provider: 00:15 Initial Comments This 37 year old woman presents to the emergency room with complaints of bilateral wrist pain for about the past 10 days. 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 Pain affects fingers 3 through 5 on both hands and she has associated paresthesias. She takes only aspirin for pain. She does not take NSAIDs due to her diabetes and cardiac health. She is wearing wrist braces bilaterally. She did see her primary care provider at [facility] yesterday and states she was not given any pain medications which she believes she needs. Allergies and Home Medications Allergies Coded Allergies: coconut (Verified Allergy, Severe, anaphylactic reaction, 07/11/17) ketorolac (Unverified Allergy, Unknown, 08/19/15) Home Medications Albuterol Sulfate 18 Gm Hfa.aer.ad, 2 PUFF IH Q4H PRN for SHORTNESS OF BREATH Prescribed by: ERNESTO MEADOWS on 10/24/17 1406 Aspirin 81 Mg Tab.chew, 81 MG PO DAILY Prescribed by: RALPH BLANCO on 10/29/17 0923 Atorvastatin Calcium 80 Mg Tablet, 80 MG PO HS Prescribed by: KRISTAL IZAGUIRRE on 12/03/17 0758 Clopidogrel Bisulfate 75 Mg Tablet, 75 MG PO DAILY Prescribed by: RALPH BLANCO on 10/29/17 0923 Furosemide 40 Mg Tablet, 40 MG PO DAILY Prescribed by: RALPH BLANCO on 10/29/17 0923 Hydrocodone Bit/Acetaminophen 1 Tab Tab, 1 EACH PO Q6H PRN for PAIN-MODERATE Prescribed by: NESSA MIJARES on 12/23/17 0223 Insulin Determir 1,000 Units/10 Ml Soln, 20 UNITS SQ BID Prescribed by: NORIS KEVIN on 11/17/17 1131 Insulin Lispro 100 Unit/1 Ml Insuln.pen, 15 UNIT SQ TIDAC Prescribed by: NORIS KEVIN on 11/17/17 1131 Isosorbide Mononitrate 30 Mg Tab.er.24h, 30 MG PO DAILY Prescribed by: KRISTAL IZAGUIRRE on 11/17/17 0943 Lisinopril 5 Mg Tablet, 5 MG PO DAILY@0900 Prescribed by: KRISTAL IZAGUIRRE on 12/03/17 0758 Metoprolol Succinate 50 Mg Tab.er.24h, 50 MG PO BID Prescribed by: RALPH BLANCO on 10/29/17 1131 Naproxen 500 Mg Tablet, 500 MG PO BID Prescribed by: NESSA MIJARES on 12/23/17 0223 Pantoprazole Sodium 40 Mg Granpkt.dr, 40 MG PO DAILY Prescribed by: KRISTAL IZAGUIRRE on 11/17/17 0943 Potassium Chloride 20 Meq Tab.er.prt, 20 MEQ PO DAILY@0700 Prescribed by: RALPH BLANCO on 10/29/17 0923 Ranolazine 500 Mg Tab.er.12h, 500 MG PO BID Prescribed by: KRISTAL IZAGUIRRE on 12/03/17 075 Tramadol HCl 50 Mg Tablet, 50 MG PO Q6H PRN for PAIN-MODERATE TO SEVERE Prescribed by: VIN VACA on 01/09/18 0042 Patient Home Medication List Home Medication List Reviewed: Yes Review of Systems Constitutional: no symptoms reported : No Musculoskeletal: see HPI Skin: no symptoms reported Psychiatric/Neurological: See HPI Past Wpjyrux-Drimbq-Afaojk Hx Past Med/Social Hx: Reviewed and Corrections made Patient Social History Alcohol Use: Denies Use Recreational Drug Use: No Type Used: Cigarettes 2nd Hand Smoke Exposure: Yes Recent Foreign Travel: No Contact w/Someone Who Travel: No Recent Hopitalizations: No Immunizations Up To Date Tetanus Booster (TDap): Unknown PED Vaccines UTD: No Date of Pneumonia Vaccine: September 09, 2016 Seasonal Allergies Seasonal Allergies: No Past Medical History Surgeries: Yes Breast, Section, Tubal Ligation Respiratory: No Currently Using CPAP: No Currently Using BIPAP: No Cardiac: Yes (Hx of stent to LAD.) Coronary Artery Disease, Heart Attack, Hypertension Neurological: Yes Neuropathy Reproductive Disorders: No Female Reproductive Disorders: Ovarian Cyst Sexually Transmitted Disease: No HIV/AIDS: No Genitourinary: No Gastrointestinal: No Musculoskeletal: Yes Chronic Back Pain Endocrine: Yes Diabetes, Insulin dep HEENT: No Loss of Vision: Denies Hearing Impairment: Denies Cancer: No Psychosocial: No Integumentary: No Blood Disorders: No Adverse Reaction/Blood Tranf: No Family Medical History Cardiovascular disease 19 FATHER, Onset:Unknown 19 MOTHER, Onset:Unknown Diabetes mellitus 19 FATHER 19 MOTHER Heart Disease, Diabetes, Other Conditions/Hx Physical Exam Vital Signs Vital Signs - First Documented 01/09/18 01/09/18 00:19 00:49 Temp 98.2 Pulse 111 Resp 19 B/P (MAP) 141/102 (115) Pulse Ox 100 Capillary Refill : Height, Weight, BMI Height: 5'2.00" Weight: 150lbs. 0.0oz. 68.984427gw; 27.5 BMI Method:Stated General Appearance: WD/WN, mild distress HEENT: normal ENT inspection Neck: normal inspection Cardiovascular: regular rate, rhythm, no edema, no murmur Respiratory: lungs clear, normal breath sounds, no respiratory distress, no accessory muscle use Elbow/Forearm: normal inspection, no evidence of injury Wrist: Yes normal inspection, Yes no evidence of injury, Yes limited ROM, Yes pain, Yes soft tissue tenderness (Tinels test positive bilaterally) Hand: normal inspection, no evidence of injury, swelling (paresthesias present in fingers 3 through 5 bilaterally but sensation intact. Capillary refill normal. 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) Neurologic/Tendon: normal sensation, normal motor functions, normal tendon functions Neurologic/Psychiatric: credit support counselor II-XII nml as tested, no motor/sensory deficits, alert, normal mood/affect, oriented x 3 Skin: normal color, warm/dry Progress/Results/Core Measures Results/Orders My Orders Orders - VIN PINEDA MD Tramadol Tablet (Ultram Tablet) (01/09/18 00:45) Medications Given in ED Current Medications Medications Dose Ordered Sig/Tomasz Route Start Time Stop Time Status Last Admin Dose Admin Tramadol HCl 50 mg ONCE ONCE PO 01/09/18 00:45 01/09/18 00:46 DC 01/09/18 00:48 50 MG Vital Signs/I&O 01/09/18 01/09/18 00:19 00:49 Temp 98.2 98.2 Pulse 111 111 Resp 19 19 B/P (MAP) 141/102 (115) 141/102 (115) Pulse Ox 100 Progress Progress Note : Progress Note Chart and medication history reviewed. Ultram given for initial treatment. Work note also given. Departure Impression Primary Impression: Bilateral wrist pain Disposition: 01 HOME, SELF-CARE Condition: Improved Departure-Patient Inst. Decision time for Depature: 00:38 Referrals: [facility] (PCP/Family) Primary Care Physician Patient Instructions: Carpal Tunnel Exercises, Carpal Tunnel Syndrome Add. Discharge Instructions: Your wrist pain is likely caused by carpal tunnel syndrome. Continue to pursue evaluation with the specialist. Return to care if you have worsening symptoms. As much as possible avoid excessive grabbing, gripping, or lifting. Continue to use your wrist braces You may take Tylenol (acetaminophen) up to 1000 mg every 6 hours as needed for pain. Add Ultram (tramadol) as prescribed for pain not controlled by Tylenol. Icing the affected areas in 20 minute intervals may also be helpful. All discharge instructions reviewed with patient and/or family. Voiced understanding. Scripts Tramadol HCl (Ultram) 50 Mg Tablet 50 MG PO Q6H PRN for PAIN-MODERATE TO SEVERE, #20 TAB Prov: VIN PINEDA MD 01/09/18 Work/School Note: Work Release Form Date Seen in the Emergency Department: Jan 09, 2018 Return to Work: Jan 10, 2018 Other Restrictions Listed Below: No lifting over 10 lbs, gripping, or grabbing with hands until 01/14/18. VIN PINEDA MD Jan 09, 2018 00:42
[2018-01-09 00:49] VITALS: BP 141/102
== END 2018-01-09 00:51 | disposition home or self-care (01) ==
LOC: EDUNIT# 00:11 → ER 00:15
DX: M25.531 Pain in right wrist (principal); M25.532 Pain in left wrist; I25.10 Atherosclerotic heart disease of native coronary artery without angina pectoris; I25.2 Old myocardial infarction; I10 Essential (primary) hypertension; E11.42 Type 2 diabetes mellitus with diabetic polyneuropathy; Z82.49 Family history of ischemic heart disease and other diseases of the circulatory system; Z87.448 Personal history of other diseases of urinary system; Z79.82 Long term (current) use of aspirin; Z88.4 Allergy status to anesthetic agent; Z79.51 Long term (current) use of inhaled steroids; Z79.02 Long term (current) use of antithrombotics/antiplatelets; Z77.22 Contact with and (suspected) exposure to environmental tobacco smoke (acute) (chronic); Z98.890 Other specified postprocedural states; Z98.51 Tubal ligation status; Z95.5 Presence of coronary angioplasty implant and graft; X50.0XXA Overexertion from strenuous movement or load, initial encounter; Y92.59 Other trade areas as the place of occurrence of the external cause; Y99.0 Civilian activity done for income or pay
CPT/HCPCS: 99283

== ENCOUNTER 2018-01-22 19:03 | Emergency (ER) | payer OTHER ==
[~2018-01-22] VITALS: Ht 157.5 cm; Wt 68.0 kg
[~2018-01-22 19:03] MED LIST changes: +TRAM-42 PO
--- OUTSIDE RECORDS SUMMARY | 2018-01-22 19:08 | XMS REPORT ---
Author Author HO CUBA Organization [facility] Address [address] [place] [address] Care Team Providers Care Communications Officer Name Role Phone HO CUBA Unavailable PROBLEMS Type Condition ICD9-CM Code BHX31-OG Code Onset Dates Condition Status SNOMED Code Problem Atherosclerotic heart disease of [place] coronary artery without angina pectoris I25.10 Active 260207803 Problem Coronary artery disease involving [place] heart with angina pectoris, unspecified vessel or lesion type I25.119 Active 91959204 Problem Cigarette smoker F17.210 Active 47422943 Problem Atherosclerotic heart disease of [place] coronary artery with unstable angina pectoris I25.110 Active 37913732933398820 Problem Restless leg syndrome G25.81 Active 56838532 Problem PTSD (post-traumatic stress disorder) F43.10 Active 57639624 Problem Gastroesophageal reflux disease without esophagitis K21.9 Active 360225089 Problem Coronary artery disease involving [place] coronary artery of [place] heart with angina pectoris I25.119 Active 5730310123418 Problem Moderate episode of recurrent major depressive disorder F33.1 Active 050951196 Problem Elevated BUN R79.9 Active 374345640 Problem Type 2 diabetes mellitus with diabetic polyneuropathy E11.42 Active 35576815 Problem Hyperlipidemia LDL goal <70 E78.5 Active 18754935 Problem PVC (premature ventricular contraction) I49.3 Active 94752296 Problem Chest pain, unspecified type R07.9 Active 45521113 Problem 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 Z79.4 Active 963273284 Problem Essential hypertension I10 Active 09387675 ALLERGIES Substance Reaction Event Type Date Status Adhesive Bandages Unknown Drug Allergy Dec, Active Toradol Unknown Non Drug Allergy Dec, Active ENCOUNTERS Encounter Location Date Diagnosis [facility] [address] [facility] [id number] [address] Jan, [facility] [address] [place] [id number] [place] [address] Jan, [facility] [address], [place] [address] Jan, [facility] [address] [place] [address] Jan, [facility] [address] [place] [address] Jan, Pain of left hand M79.642 and Pain in right hand M79.641 [facility] [address], [place] [address] Jan, [facility] [address] [place] [address] Dec, Bilateral hand numbness R20.0 [facility] [address], [place] [address] Dec, PTSD (post-traumatic stress disorder) F43.10 and Moderate episode of recurrent major depressive disorder F33.1 [facility] [address] [address] 24 Dec, 2017 Type 2 diabetes mellitus with diabetic polyneuropathy E11.42 [facility] [address], [place] [address] Dec, [facility] [address] [place] [address]773[address] Dec, Type 2 diabetes mellitus with diabetic polyneuropathy E11.42 and Atherosclerotic heart disease of [place] coronary artery with unstable angina pectoris I25.110 [facility] [address] [address] Dec, Bilateral hand numbness R20.0 [facility] [address] [place] [address]252[address] 18 Dec, 2017 Moderate episode of recurrent major depressive disorder F33.1 ; Type 2 diabetes mellitus with diabetic polyneuropathy E11.42 ; 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 Z79.4 ; Hyperlipidemia LDL goal <70 E78.5 ; Chest pain, unspecified type R07.9 ; Atherosclerotic heart disease of [place] coronary artery without angina pectoris I25.10 ; Cigarette smoker F17.210 ; Gastroesophageal reflux disease without esophagitis K21.9 and Restless leg syndrome G25.81 [place] [address] [place] [address] [id number] [place] [address] 18 Dec, 2017 PTSD (post-traumatic stress disorder) F43.10 and Moderate episode of recurrent major depressive disorder F33.1 [place] [address] [place] [address] [id number] [place] [address]1246- 74[address] 11 Dec, 2017 Moderate episode of recurrent major depressive disorder F33.1 [place] [address] [address] Dec, [place] [address] [address] Dec, [place] [address] [address] Dec, Uncontrolled type 2 diabetes mellitus with hyperglycemia E11.65 and Flatulence/gas pain/belching R14.0 [place] [address] [address] Nov, [place] [address] [place] [id number] [place] [address] 23867[address] Nov, PTSD (post-traumatic stress disorder) F43.10 and Moderate episode of recurrent major depressive disorder F33.1 [place] [address] [id number] [place] [address] 99[address] Nov, Chest pain, unspecified type R07.9 ; Coronary artery disease involving [place] coronary artery of [place] heart with angina pectoris I25.119 ; Restless leg syndrome G25.81 ; Hospital discharge follow-up Z09 and Type 2 diabetes mellitus with diabetic polyneuropathy E11.42 [place] [address] [id number] [place] [address] Nov, Hyperlipidemia LDL goal <70 E78.5 [place] [address] [place] [address] [id number] [place] [address] 61[address] 14 Nov, 2017 Hospital discharge follow-up Z09 ; Chest pain, unspecified type R07.9 ; Coronary artery disease involving [place] coronary artery of [place] heart with angina pectoris I25.119 and Gastroesophageal reflux disease without esophagitis K21.9 [place] [address] [place] [address] [id number] [place] [address] 48525- [address] 07 Nov, 2017 PTSD (post-traumatic stress disorder) F43.10 and Moderate episode of recurrent major depressive disorder F33.1 [place] [address] [place] [address] [id number] [place] [address] 54[address] 268[address] Oct, Type 2 diabetes mellitus with diabetic polyneuropathy E11.42 [place] [address] [place] [address] [id number] [place] [address] 332[address] 5[address] Oct, Diarrhea, unspecified type R19.7 ; Gastroesophageal reflux disease without esophagitis K21.9 and Vaginal discharge N89.8 [place] [address] [place] [address] [id number] [place] [address] 92[address]- 49[address] Oct, Type 2 diabetes mellitus with diabetic polyneuropathy E11.42 [place] [address] [address] [id number] [place] [address] 45133- 2342 Oct, Hyperlipidemia LDL goal <70 E78.5 [place] [id number] [place] [address] 26954- 477[address] Oct, Atherosclerotic heart disease of [place] coronary artery without angina pectoris I25.10 ; Coronary artery disease involving [place] heart with angina pectoris, unspecified vessel or lesion type I25.119 ; Type 2 diabetes mellitus with diabetic polyneuropathy E11.42 ; Hyperlipidemia LDL goal <70 E78.5 ; Cigarette smoker F17.210 and Post-traumatic stress reaction F43.10 [place] [address] [place] [id number] [place] [address]- [address] Oct, [place] [id number] [place] [address] 34664- 8[address] Oct, Difficulty breathing R06.89 ; Hospital discharge follow-up Z09 and Bilateral lower extremity edema R60.0 [facility] [id number] [place] [address] 84414[address] Oct, [facility] [id number] [place] [address] 64475 -[address]96 Oct, Dependent edema R60.9 [facility] [address] [address] [id number] [place] [address] 38846- 5970 Oct, [facility] [id number] [place] [address] 31088- 4110 Oct, [facility] [address] [place] [address] [id number] [place] [address] 65325- 6196 Oct, Type 2 diabetes mellitus with diabetic polyneuropathy E11.42 [facility] [address] [place] [address] [id number] [place] [address] 09357- 6913 Oct, [facility] [id number] [place] [address] 14109- 0[address] Sep, [facility] [id number] [place] [address] 69533- 8599 August, [facility] [id number] [place] [address] 07856- 6355 Jul, [facility] [id number] [place] [address] 21409- 5944 Jul, Establishing care with new doctor, encounter for Z76.89 ; Type 2 diabetes mellitus with diabetic polyneuropathy E11.42 ; senior living 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 Z79.4 ; Hyperlipidemia LDL goal <70 E78.5 ; Essential hypertension I10 and Chest pain, unspecified type R07.9 [facility] [id number] [place] [address] 50563- 8922 Jul, [facility] [id number] [place] [address] 76132- 3411 Jul, [facility] [address] [place] [address] Jun, [facility] [address] [place] [address] Jun, [facility] [address], [place] [address] Jun, [facility] [address] [place] [address] 88515- 9243 Jun, Acute hyperglycemia R73.9 ; Type 2 diabetes mellitus with diabetic polyneuropathy E11.42 ; senior living 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 Z79.4 ; HTN, goal below 130/80 I10 and Hyperlipidemia LDL goal <70 E78.5 [facility] [place] [address] [place] [address] 26299 [address]87 August, [facility] [place] [address] [address] [id number] [place] [address] 40240 -5995 August, [facility] [place] [address] [place] [address] 72429 -[address]16 August, Acute vaginitis N76.0 ; Trichomonas vaginitis A59.01 and Vaginal discharge N89.8 IMMUNIZATIONS No Known Immunizations SOCIAL HISTORY Never Assessed REASON FOR VISIT f/u PLAN OF CARE Activity Details Follow Up Next available Reason: VITAL SIGNS MEDICATIONS Medication Instructions Dosage Frequency Start Date End Date Duration Status Levemir FlexTouch 100 UNIT/ML Subcutaneous 2 times a day 18 Units 12h Unknown Ranolazine ER 500 mg Orally Twice a day 1 tablet 12h 20 Nov, 2017 30 day(s) Unknown Pen Palisades 31G X 6 MM Unknown Blood Glucose Monitor System w/Device as directed Jun, Unknown Plavix 75 MG Orally Once a day 1 tablet 24h Oct, 30 days Unknown Pantoprazole Sodium 40 mg Orally Once a day 1 tablet 24h Nov, 30 day(s) Unknown Zoloft 100 mg Orally Once a day 1.5 tablets 24h Nov, 30 days Unknown Victoza 18 MG/3ML Subcutaneous daily 0.6mg qd for 7days, then 1.2mf for 7 days then 1.8mg from then on. 24h Dec, Unknown Aspirin 81 81 MG Orally Once a day 1 tablet 24h Jan, 30 days Unknown Blood Glucose Test Strip test strips One Touch Verio strip and Delica lancet 3 times a day test blood sugar 8h Jun, 30 days Unknown Lasix 20 mg Orally Once a day 1 tablet 24h Oct, 3 days Unknown Zantac 150 MG Orally Once a day 1 tablet at bedtime 24h Oct, 30 day(s) Unknown Lisinopril 5 mg Orally Once a day 1 tablet 24h Jul, 30 day(s) Unknown Humalog KwikPen 100 UNIT/ML Subcutaneous 3 times a day before meals Inject 15 Units with meals Unknown Metformin HCl 1000 MG Orally Twice a day 1 tablet with meals 12h 30 days Unknown Amitriptyline HCl 25 MG Orally Once a day at bedtime 1 tablet Nov, Unknown Isosorbide Mononitrate ER 30 MG Orally Once a day 1 tablet in the morning 24h Nov, 30 day(s) Unknown Atorvastatin Calcium 80 MG Orally Once a day 1 tablet 24h 30 days Unknown RESULTS No Results PROCEDURES Procedure Date Ordered Result Body Site Psychotherapy, patient &/family, 30 minutes, established patient Jan 01, 2018 INSTRUCTIONS MEDICATIONS ADMINISTERED No Known Medications MEDICAL [...]
--- OUTSIDE RECORDS SUMMARY | 2018-01-22 19:08 | XMS REPORT | Clinical Summary ---
Author Author [facility] Organization [facility] Address Unknown Phone Unavailable Care Team Providers Care Biogeographer Name Role Phone Alfred Diaz MD PCP Unavailable Source Comments Some departments are not documenting in the electronic medical record. If you do not see the information that you expected, contact Release of Information in the Health Information Management department at [phone] for further assistance in locating additional records.[facility] Allergies Not on File Current [...] 1998 CERVICAL CANCER SCREENING 2011 INFLUENZA VACCINE 11/14/2017 Results Not on filefrom Last 3 Months
--- OUTSIDE RECORDS SUMMARY | 2018-01-22 19:08 | XMS REPORT ---
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 Name Role Phone NEW LE Unavailable PROBLEMS Type Condition ICD9-CM Code NMI56-ME Code Onset Dates Condition Status SNOMED Code Problem Atherosclerotic heart disease of [place] coronary artery without angina pectoris I25.10 Active 674919904 Problem Coronary artery disease involving [place] heart with angina pectoris, unspecified vessel or lesion type I25.119 Active 38893033 Problem Cigarette smoker F17.210 Active 65826778 Problem Atherosclerotic heart disease of [place] coronary artery with unstable angina pectoris I25.110 Active [id number] Problem Restless leg syndrome G25.81 Active 93297268 Problem PTSD (post-traumatic stress disorder) F43.10 Active 93239640 Problem Gastroesophageal reflux disease without esophagitis K21.9 Active 986329081 Problem Coronary artery disease involving [place] coronary artery of [place] heart with angina pectoris I25.119 Active 6537877352637 Problem Moderate episode of recurrent major depressive disorder F33.1 Active 024807731 Problem Elevated BUN R79.9 Active 794077502 Problem Type 2 diabetes mellitus with diabetic polyneuropathy E11.42 Active 38794088 Problem Hyperlipidemia LDL goal <70 E78.5 Active 24050839 Problem PVC (premature ventricular contraction) I49.3 Active 33390253 Problem Chest pain, unspecified type R07.9 Active 78698691 Problem skilled nursing 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 Z79.4 Active 050729756 Problem Essential hypertension I10 Active 32299024 ALLERGIES Substance Reaction Event Type Date Status Adhesive Bandages Unknown Drug Allergy Dec, Active Toradol Unknown Non Drug Allergy Dec, Active ENCOUNTERS Encounter Location Date Diagnosis [facility] [address] [facility] [id number] [address] Jan, [facility] [address] [id number] [address] Jan, [facility] [id number] [place] [address] Jan, [facility] [id number] [place] [address] Jan, Pain of left hand M79.642 and Pain in right hand M79.641 [facility] [id number] [place] [address] 94165[address] Jan, [facility] [id number] [place] [address] 55739- 1669 Dec, Bilateral hand numbness R20.0 [place] [id number] [place] [address]133- 6980 Dec, PTSD (post-traumatic stress disorder) F43.10 and Moderate episode of recurrent major depressive disorder F33.1 [place] [id number] [place] [address] 09980- 1165 Dec, Type 2 diabetes mellitus with diabetic polyneuropathy E11.42 [facility] [id number] [place] [address] 15654- 8749 Dec, [place] [id number] [place] [address] 40410- 7872 Dec, Type 2 diabetes mellitus with diabetic polyneuropathy E11.42 and Atherosclerotic heart disease of [place] coronary artery with unstable angina pectoris I25.110 [place] [id number] [place] [address] 21136- 1145 Dec, Bilateral hand numbness R20.0 [place] [id number] [place] [address] 61846- 9590 Dec, Moderate episode of recurrent major depressive disorder F33.1 ; Type 2 diabetes mellitus with diabetic polyneuropathy E11.42 ; 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 ; Hyperlipidemia LDL goal <70 E78.5 ; Chest pain, unspecified type R07.9 ; Atherosclerotic heart disease of [place] coronary artery without angina pectoris I25.10 ; Cigarette smoker F17.210 ; Gastroesophageal reflux disease without esophagitis K21.9 and Restless leg syndrome G25.81 [place] [address] [address]- [address] 18 Dec, 2017 PTSD (post-traumatic stress disorder) F43.10 and Moderate episode of recurrent major depressive disorder F33.1 [place] [address] [address]- [address] 11 Dec, 2017 Moderate episode of recurrent major depressive disorder F33.1 [place] [address] [address]60- [address] Dec, [place] [address] [address]- 1617 Dec, [place] [address] [address] Dec, Uncontrolled type 2 diabetes mellitus with hyperglycemia E11.65 and Flatulence/gas pain/belching R14.0 [place] [address] 94347- 8[address] Nov, [place] [address] 11423- 6747 Nov, PTSD (post-traumatic stress disorder) F43.10 and Moderate episode of recurrent major depressive disorder F33.1 [place] [address] 42475- 2402 Nov, Chest pain, unspecified type R07.9 ; Coronary artery disease involving [place] coronary artery of [place] heart with angina pectoris I25.119 ; Restless leg syndrome G25.81 ; Hospital discharge follow-up Z09 and Type 2 diabetes mellitus with diabetic polyneuropathy E11.42 [place] [id number] [place] [address] 25330- 2449 Nov, Hyperlipidemia LDL goal <70 E78.5 [place] [address] [address]359- [address] 14 Nov, 2017 Hospital discharge follow-up Z09 ; Chest pain, unspecified type R07.9 ; Coronary artery disease involving [place] coronary artery of [place] heart with angina pectoris I25.119 and Gastroesophageal reflux disease without esophagitis K21.9 [place] [id number] [place] [address] 22405- 5786 07 Nov, 2017 PTSD (post-traumatic stress disorder) F43.10 and Moderate episode of recurrent major depressive disorder F33.1 [place] [address] 32387- 3856 Oct, Type 2 diabetes mellitus with diabetic polyneuropathy E11.[address] [address]- [address]763 Oct, Diarrhea, unspecified type R19.7 ; Gastroesophageal reflux disease without esophagitis K21.9 and Vaginal discharge N89.8 [place] [address] 5[address]71- 7315 Oct, Type 2 diabetes mellitus with diabetic polyneuropathy E11.42 [place] [id number] [place] [address] 39518- 1567 Oct, Hyperlipidemia LDL goal <70 E78.5 [id number] [place] [address] 76007- 7357 Oct, Atherosclerotic heart disease of [place] coronary artery without angina pectoris I25.10 ; Coronary artery disease involving [place] heart with angina pectoris, unspecified vessel or lesion type I25.119 ; Type 2 diabetes mellitus with diabetic polyneuropathy E11.42 ; Hyperlipidemia LDL goal <70 E78.5 ; Cigarette smoker F17.210 and Post-traumatic stress reaction F43.10 [place] [id number] [place] [address] 48758- 0823 Oct, [address] [address]- [address] Oct, Difficulty breathing R06.89 ; Hospital discharge follow-up Z09 and Bilateral lower extremity edema R60.[address] [place] [address] Oct, [facility] [address], [place] [address] Oct, Dependent edema R60.9 [facility] [id number] [address] Oct, [facility] [id number] [place] [address] 24877- [address] Oct, [facility] [id number] [place] [address] 28881- 0947 Oct, Type 2 diabetes mellitus with diabetic polyneuropathy E11.42 [facility] [id number] [place] [address] 66755- 4965 Oct, [facility] [id number] [place] [address] 63685- 9676 Sep, [facility] [id number] [place] [address] 98268- 1108 August, [facility] [id number] [place] [address] 20279- 6216 Jul, [facility] [id number] [place] [address] 31290- 3126 Jul, Establishing care with new doctor, encounter for Z76.89 ; Type 2 diabetes mellitus with diabetic polyneuropathy E11.42 ; 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 ; Hyperlipidemia LDL goal <70 E78.5 ; Essential hypertension I10 and Chest pain, unspecified type R07.9 [facility] [address] [address] Jul, [facility] [id number] [place] [address] 66833- 7997 Jul, [facility] [id number] [place] [address] 73907- 2738 Jun, [facility] [id number] [address] Jun, [facility] [address] [address] Jun, [facility] [id number] [place] [address] 88138- 4242 Jun, Acute hyperglycemia R73.9 ; Type 2 diabetes mellitus with diabetic polyneuropathy E11.42 ; 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 ; HTN, goal below 130/80 I10 and Hyperlipidemia LDL goal <70 E78.5 [facility] [id number] [place] [address] 94600 -[address]204 August, [facility] [id number] [place] [address] 90834 -2040 August, [facility] [place] [id number] [place] [address] August, Acute vaginitis N76.0 ; Trichomonas vaginitis A59.01 and Vaginal discharge N89.8 IMMUNIZATIONS No Known Immunizations SOCIAL HISTORY Never Assessed REASON FOR VISIT Numbness in hand-twooden,RMA, patient hands is getting any better PLAN OF CARE Activity Details Follow Up prn Reason: VITAL SIGNS Height 62 in 2018-01-08 Weight 150.1 lbs 2018-01-08 Temperature 98.8 degrees Fahrenheit 2018-01-08 Heart Rate 104 bpm 2018-01-08 Respiratory Rate 18 2018-01-08 BMI 27.45 kg/m2 2018-01-08 Blood pressure systolic 138 mmHg 2018-01-08 Blood pressure diastolic 92 mmHg 2018-01-08 MEDICATIONS Medication Instructions Dosage Frequency Start Date End Date Duration Status Blood Glucose Test Strip test strips One Touch Verio strip and Delica lancet 3 times a day test blood sugar 8h 28 Jun, 2017 30 days Active Metformin HCl 1000 MG Orally Twice a day 1 tablet with meals 12h 30 days Active Plavix 75 MG Orally Once a day 1 tablet 24h Oct, 30 days Active Humalog KwikPen 100 UNIT/ML Subcutaneous 3 times a day before meals Inject 15 Units with meals Active Lasix 20 mg Orally Once a day 1 tablet 24h Oct, 3 days Active Aspirin 81 81 MG Orally Once a day 1 tablet 24h Jan, 30 days Active Pantoprazole Sodium 40 mg Orally Once a day 1 tablet 24h Nov, 30 day(s) Active Levemir FlexTouch 100 UNIT/ML Subcutaneous 2 times a day 15 Units 12h Active NovoFine 32G X 6 MM subcutaneously Once a day with injection 24h Dec, Active Gabapentin 100 mg Orally Three times a day 1 capsule 8h Dec, 30 day(s) Active Atorvastatin Calcium 80 MG Orally Once a day 1 tablet 24h 30 days Active Zoloft 100 mg Orally Once a day 1.5 tablets 24h 07 Nov, 2017 30 days Active Isosorbide Mononitrate ER 30 MG Orally Once a day 1 tablet in the morning 24h Nov, 30 day(s) Active Amitriptyline HCl 25 MG Orally Once a day at bedtime 1 tablet Nov, Active Ranolazine ER 500 mg Orally Twice a day 1 tablet 12h Nov, 30 day(s) Active Blood Glucose Monitor System w/Device as directed Jun, Active Lisinopril 5 mg Orally Once a day 1 tablet 24h Jul, 30 day(s) Active Pen [place] 31G X 6 MM Active Victoza 18 MG/3ML Subcutaneous daily 1.8 mg 24h Dec, Active RESULTS No Results PROCEDURES No Known procedures INSTRUCTIONS MEDICATIONS ADMINISTERED No Known Medications MEDICAL (GENERAL) HISTORY Type Description Date Medical History Type 2 diabetes mellitus with diabetic polyneuropathy 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
--- OUTSIDE RECORDS SUMMARY | 2018-01-22 19:09 | XMS REPORT ---
Author Author NEW LE [facility] Address [address] [place] [address] Care Team Providers Care Business Partner Name Role Phone NEW LE Unavailable PROBLEMS ALLERGIES No Information ENCOUNTERS IMMUNIZATIONS No Known Immunizations SOCIAL HISTORY No smoking Hx information available REASON FOR VISIT PLAN OF CARE VITAL SIGNS MEDICATIONS RESULTS No Results PROCEDURES No Known procedures INSTRUCTIONS MEDICATIONS ADMINISTERED No Known Medications MEDICAL (GENERAL) HISTORY
--- OUTSIDE RECORDS SUMMARY | 2018-01-22 19:09 | XMS REPORT ---
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, unspecified vessel or lesion type I25.119 Active 02714334 Problem Cigarette smoker F17.210 Active 65804697 Problem Atherosclerotic heart disease of [place] coronary artery with unstable angina pectoris I25.110 Active [id number] Problem Restless leg syndrome G25.81 Active 32635731 Problem PTSD (post-traumatic stress disorder) F43.10 Active 15340134 Problem Gastroesophageal reflux disease without esophagitis K21.9 Active 357033438 Problem Coronary artery disease involving [place] coronary artery of [place] heart with angina pectoris I25.119 Active 0679229088112 Problem Moderate episode of recurrent major depressive disorder F33.1 Active 196621463 Problem Elevated BUN R79.9 Active 636288968 Problem Type 2 diabetes mellitus with diabetic polyneuropathy E11.42 Active 18639096 Problem Hyperlipidemia LDL goal <70 E78.5 Active 95254325 Problem PVC (premature ventricular contraction) I49.3 Active 84326483 Problem Chest pain, unspecified type R07.9 Active 62667409 Problem group home 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 Z79.4 Active 157453240 Problem Essential hypertension I10 Active 24364811 ALLERGIES Substance Reaction Event Type Date Status Adhesive Bandages Unknown Drug Allergy Dec, Active Toradol Unknown Non Drug Allergy Dec, Active ENCOUNTERS Encounter Location Date Diagnosis [facility] [address] [facility] [id number] [address] Jan, [facility] [id number] [address] Jan, [facility] [address], [place] [address] Jan, [facility] [id number] [place] [address] 63043- 1171 Dec, Bilateral hand numbness R20.0 [facility] [id number] [place] [address] 60834- 9788 Dec, PTSD (post-traumatic stress disorder) F43.10 and Moderate episode of recurrent major depressive disorder F33.1 [facility] [address] [place] [address]24- [address] 24 Dec, 2017 Type 2 diabetes mellitus with diabetic polyneuropathy E11.42 [place] [id number] [place] [address] 92267- 1717 Dec, [place] [id number] [place] [address] 65877- 3341 Dec, Type 2 diabetes mellitus with diabetic polyneuropathy E11.42 and Atherosclerotic heart disease of [place] coronary artery with unstable angina pectoris I25.110 [place] [id number] [place] [address] 49153- 2359 Dec, Bilateral hand numbness R20.0 [facility] [address] [place] [address] 72963- 1609 Dec, Moderate episode of recurrent major depressive disorder F33.1 ; Type 2 diabetes mellitus with diabetic polyneuropathy E11.42 ; 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.4 ; Hyperlipidemia LDL goal <70 E78.5 ; Chest pain, unspecified type R07.9 ; Atherosclerotic heart disease of [place] coronary artery without angina pectoris I25.10 ; Cigarette smoker F17.210 ; Gastroesophageal reflux disease without esophagitis K21.9 and Restless leg syndrome G25.81 [facility] [address] [place] [address] 45916- 1467 18 Dec, 2017 PTSD (post-traumatic stress disorder) F43.10 and Moderate episode of recurrent major depressive disorder F33.1 [place] [address], [place] [address] 11 Dec, 2017 Moderate episode of recurrent major depressive disorder F33.1 [place] [address] [place] [address] 89444- 9139 10 Dec, 2017 [place] [id number] [place] [address] 35385- 2735 Dec, [place] [id number] [place] [address] 62079- 2323 Dec, Uncontrolled type 2 diabetes mellitus with hyperglycemia E11.65 and Flatulence/gas pain/belching R14.0 [facility] [id number] [place] [address] 45020- 6049 Nov, [place] [id number] [place] [address] 84840- 5142 Nov, PTSD (post-traumatic stress disorder) F43.10 and Moderate episode of recurrent major depressive disorder F33.1 [place] [address] [place] [address] 54142- 6337 Nov, Chest pain, unspecified type R07.9 ; Coronary artery disease involving [place] coronary artery of [place] heart with angina pectoris I25.119 ; Restless leg syndrome G25.81 ; Hospital discharge follow-up Z09 and Type 2 diabetes mellitus with diabetic polyneuropathy E11.42 [place] [address] [place] [address] 00133- 3676 20 Nov, 2017 Hyperlipidemia LDL goal <70 E78.5 [place] [id number] [place] [address] 64675- 0952 14 Nov, 2017 Hospital discharge follow-up Z09 ; Chest pain, unspecified type R07.9 ; Coronary artery disease involving [place] coronary artery of [place] heart with angina pectoris I25.119 and Gastroesophageal reflux disease without esophagitis K21.9 [place] [address] [place] [address] 46264- 6015 07 Nov, 2017 PTSD (post-traumatic stress disorder) F43.10 and Moderate episode of recurrent major depressive disorder F33.1 [place] [id number] [place] [address] 72751- 1622 Oct, Type 2 diabetes mellitus with diabetic polyneuropathy E11.42 [place] [id number] [place] [address] 22303- 6149 Oct, Diarrhea, unspecified type R19.7 ; Gastroesophageal reflux disease without esophagitis K21.9 and Vaginal discharge N89.8 [place] [id number] [place] [address] 78448- 4915 Oct, Type 2 diabetes mellitus with diabetic polyneuropathy E11.42 [place] [address] [address]- 4548 Oct, Hyperlipidemia LDL goal <70 E78.5 [place] [address] 12081- 9805 Oct, Atherosclerotic heart disease of [place] coronary artery without angina pectoris I25.10 ; Coronary artery disease involving [place] heart with angina pectoris, unspecified vessel or lesion type I25.119 ; Type 2 diabetes mellitus with diabetic polyneuropathy E11.42 ; Hyperlipidemia LDL goal <70 E78.5 ; Cigarette smoker F17.210 and Post-traumatic stress reaction F43.10 [place] [id number] [place] [address] 54447- 7374 Oct, [facility] [id number] [place] [address] 86055- 1844 Oct, Difficulty breathing R06.89 ; Hospital discharge follow-up Z09 and Bilateral lower extremity edema R60.0 [place] [id number] [place] [address] 70478- 3271 Oct, [facility] [id number] [place] [address] 11388 -6795 Oct, Dependent edema R60.9 [place] [id number] [place] [address] 65939- 7984 Oct, [facility] [address], [place] [address] 09[address] Oct, [facility] [id number] [place] [address] 99786- 2490 Oct, Type 2 diabetes mellitus with diabetic polyneuropathy E11.42 [facility] [address] [address] 1077 Oct, [facility] [id number] [address] 1269 Sep, [facility] [id number] [place] [address] 33983- 8907 August, [facility] [id number] [place] [address] 16592- 3742 Jul, [facility] [id number] [place] [address] 16065- 5005 Jul, Establishing care with new doctor, encounter for Z76.89 ; Type 2 diabetes mellitus with diabetic polyneuropathy E11.42 ; group home 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 Z79.4 ; Hyperlipidemia LDL goal <70 E78.5 ; Essential hypertension I10 and Chest pain, unspecified type R07.9 [facility] [address], [place] [address] 6[address] Jul, [facility] [address], [place] [address] 44[address] Jul, [facility] [address], [place] [address] 5[address] Jun, [facility] [address], [place] [address] 8238 Jun, [facility] [id number] [address] 5[address] Jun, [facility] [address], [place] [address] 2768 Jun, Acute hyperglycemia R73.9 ; Type 2 diabetes mellitus with diabetic polyneuropathy E11.42 ; group home 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 Z79.4 ; HTN, goal below 130/80 I10 and Hyperlipidemia LDL goal <70 E78.5 [facility] [address] [facility] [id number] [place] [address] August, [facility] [address] [facility] [id number], [place] [address] August, [facility] [address] [facility] [id number], [place] [address] August, Acute vaginitis N76.0 ; Trichomonas vaginitis A59.01 and Vaginal discharge N89.8 IMMUNIZATIONS No Known Immunizations SOCIAL HISTORY Never Assessed REASON FOR VISIT Numbness in hand-twooden,RMA, numbness and sharp pain in both hands and tip of fingers PLAN OF CARE Activity Details Follow Up prn Reason: VITAL SIGNS Height 62 in 2018-01-01 Weight 154.2 lbs 2018-01-01 Temperature 98.4 degrees Fahrenheit 2018-01-01 Heart Rate 104 bpm 2018-01-01 Respiratory Rate 18 2018-01-01 BMI 28.20 kg/m2 2018-01-01 Blood pressure systolic 140 mmHg 2018-01-01 Blood pressure diastolic 92 mmHg 2018-01-01 MEDICATIONS Medication Instructions Dosage Frequency Start Date End Date Duration Status Pen [place] 31G X 6 MM Active Aspirin 81 81 MG Orally Once a day 1 tablet 24h Jan, 30 days Active Levemir FlexTouch 100 UNIT/ML Subcutaneous 2 times a day 18 Units 12h Active Metformin HCl 1000 MG Orally Twice a day 1 tablet with meals 12h 30 days Active Ranolazine ER 500 mg Orally Twice a day 1 tablet 12h 20 Nov, 2017 30 day(s) Active Isosorbide Mononitrate ER 30 MG Orally Once a day 1 tablet in the morning 24h Nov, 30 day(s) Active Victoza 18 MG/3ML Subcutaneous daily 0.6mg qd for 7days, then 1.2mf for 7 days then 1.8mg from then on. 24h Dec, Active Atorvastatin Calcium 80 MG Orally Once a day 1 tablet 24h 30 days Active Plavix 75 MG Orally Once a day 1 tablet 24h Oct, 30 days Active Lasix 20 mg Orally Once a day 1 tablet 24h 05 Oct, 2017 3 days Active Blood Glucose Test Strip test strips One Touch Verio strip and Delica lancet 3 times a day test blood sugar 8h Jun, 30 days Active Pantoprazole Sodium 40 mg Orally Once a day 1 tablet 24h 14 Nov, 2017 30 day(s) Active Zoloft 100 mg Orally Once a day 1.5 tablets 24h Nov, 30 days Active Humalog KwikPen 100 UNIT/ML Subcutaneous 3 times a day before meals Inject 15 Units with meals Active Blood Glucose Monitor System w/Device as directed Jun, Active Lisinopril 5 mg Orally Once a day 1 tablet 24h Jul, 30 day(s) Active Zantac 150 MG Orally Once a day 1 tablet at bedtime 24h Oct, 30 day(s) Active Amitriptyline HCl 25 MG Orally Once a day at bedtime 1 tablet Nov, Active RESULTS No Results PROCEDURES No Known procedures INSTRUCTIONS MEDICATIONS ADMINISTERED No Known Medications MEDICAL (GENERAL) HISTORY Type Description Date Medical History Type 2 diabetes mellitus with diabetic polyneuropathy Medical History group home 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 Medical History [...]
--- OUTSIDE RECORDS SUMMARY | 2018-01-22 19:09 | XMS REPORT ---
Author Author NEW LE Organization [facility] Address [address] [place] [address] Care Team Providers Care Wind Turbine Mechanic Name Role Phone NEW LE Unavailable PROBLEMS Type Condition ICD9-CM Code MAV45-MM Code Onset Dates Condition Status SNOMED Code Problem Atherosclerotic heart disease of [place] coronary artery without angina pectoris I25.10 Active 334604178 Problem Coronary artery disease involving [place] heart with angina pectoris, unspecified vessel or lesion type I25.119 Active 04303547 Problem Cigarette smoker F17.210 Active 15294737 Problem Atherosclerotic heart disease of [place] coronary artery with unstable angina pectoris I25.110 Active 39068272703405971 Problem Restless leg syndrome G25.81 Active 96148018 Problem PTSD (post-traumatic stress disorder) F43.10 Active 96425162 Problem Gastroesophageal reflux disease without esophagitis K21.9 Active 311859763 Problem Coronary artery disease involving [place] coronary artery of [place] heart with angina pectoris I25.119 Active 3826848860900 Problem Moderate episode of recurrent major depressive disorder F33.1 Active 845326114 Problem Elevated BUN R79.9 Active 394269579 Problem Type 2 diabetes mellitus with diabetic polyneuropathy E11.42 Active 89325946 Problem Hyperlipidemia LDL goal <70 E78.5 Active 55225512 Problem PVC (premature ventricular contraction) I49.3 Active 21540745 Problem Chest pain, unspecified type R07.9 Active 87794839 Problem [facility] 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 Z79.4 Active 657550270 Problem Essential hypertension I10 Active 50088650 ALLERGIES No Information ENCOUNTERS Encounter Location Date Diagnosis [facility] [id number] [address] Jan, [facility] [id number] [address] 4[address] Jan, [facility] [address] [place] [address] 72614- 3076 Jan, [place] [address] [place] [address] 24969- 3426 Dec, Bilateral hand numbness R20.0 [place] [id number] [place] [address] 68086- 2971 25 Dec, 2017 PTSD (post-traumatic stress disorder) F43.10 and Moderate episode of recurrent major depressive disorder F33.1 [place] [id number] [place] [address] 87440- 5434 24 Dec, 2017 Type 2 diabetes mellitus with diabetic polyneuropathy E11.42 [place] [id number] [place] [address] 97023- 3790 Dec, [place] [id number] [place] [address] 58987- 9117 Dec, Type 2 diabetes mellitus with diabetic polyneuropathy E11.42 and Atherosclerotic heart disease of [place] coronary artery with unstable angina pectoris I25.110 [place] [address] [place] [address] 68914- 3111 18 Dec, 2017 Bilateral hand numbness R20.0 [place] [id number] [place] [address] 68250- 8636 18 Dec, 2017 Moderate episode of recurrent major depressive disorder F33.1 ; Type 2 diabetes mellitus with diabetic polyneuropathy E11.42 ; [facility] 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 Z79.4 ; Hyperlipidemia LDL goal <70 E78.5 ; Chest pain, unspecified type R07.9 ; Atherosclerotic heart disease of [place] coronary artery without angina pectoris I25.10 ; Cigarette smoker F17.210 ; Gastroesophageal reflux disease without esophagitis K21.9 and Restless leg syndrome G25.81 [place] [address] [place] [address] 43758- 5415 18 Dec, 2017 PTSD (post-traumatic stress disorder) F43.10 and Moderate episode of recurrent major depressive disorder F33.1 [place] [address] [place] [address] 29471- 2280 Dec, Moderate episode of recurrent major depressive disorder F33.1 [place] [address] [address]- 4178 Dec, [place] [id number] [place] [address] 13028- 0893 Dec, [place] [address] [place] [address] 54453- 7997 Dec, Uncontrolled type 2 diabetes mellitus with hyperglycemia E11.65 and Flatulence/gas pain/belching R14.0 [place] [address] [place] [address] 63097- 8374 Nov, [place] [id number] [place] [address] 07034- 6515 Nov, PTSD (post-traumatic stress disorder) F43.10 and Moderate episode of recurrent major depressive disorder F33.1 [place] [address] [place] [address] 01171- 4202 23 Nov, 2017 Chest pain, unspecified type R07.9 ; Coronary artery disease involving [place] coronary artery of [place] heart with angina pectoris I25.119 ; Restless leg syndrome G25.81 ; Hospital discharge follow-up Z09 and Type 2 diabetes mellitus with diabetic polyneuropathy E11.42 [place] [address] [place] [address] 55798- 7343 20 Nov, 2017 Hyperlipidemia LDL goal <70 E78.5 [place] [address] [place] [address] 61107- 2111 14 Nov, 2017 Hospital discharge follow-up Z09 ; Chest pain, unspecified type R07.9 ; Coronary artery disease involving [place] coronary artery of [place] heart with angina pectoris I25.119 and Gastroesophageal reflux disease without esophagitis K21.9 [place] [address] [place] [address] 90619- 4690 07 Nov, 2017 PTSD (post-traumatic stress disorder) F43.10 and Moderate episode of recurrent major depressive disorder F33.1 [place] [id number] [place] [address] 03692- 5031 Oct, Type 2 diabetes mellitus with diabetic polyneuropathy E11.42 [place] [id number] [place] [address] 05446- 8736 Oct, Diarrhea, unspecified type R19.7 ; Gastroesophageal reflux disease without esophagitis K21.9 and Vaginal discharge N89.8 [place] [address] 0[address]- 7430 Oct, Type 2 diabetes mellitus with diabetic polyneuropathy E11.42 [place] [id number] [place] [address] 38322- 5815 Oct, Hyperlipidemia LDL goal <70 E78.5 [place] [id number] [place] [address] 16194- 9524 Oct, Atherosclerotic heart disease of [place] coronary artery without angina pectoris I25.10 ; Coronary artery disease involving [place] heart with angina pectoris, unspecified vessel or lesion type I25.119 ; Type 2 diabetes mellitus with diabetic polyneuropathy E11.42 ; Hyperlipidemia LDL goal <70 E78.5 ; Cigarette smoker F17.210 and Post-traumatic stress reaction F43.10 [place] [id number] [place] [address] 53175- 7735 Oct, [place] [id number] [place] [address] 99762- 0102 Oct, Difficulty breathing R06.89 ; Hospital discharge follow-up Z09 and Bilateral lower extremity edema R60.0 [place] [id number] [place] [address] 66728- 6857 Oct, [facility] [id number] [place] [address] 46910 -3474 Oct, Dependent edema R60.9 [place] [id number] [place] [address] 82889- 7796 Oct, [place] [address] 01675- 2957 Oct, [facility] [address] [address]- 8828 Oct, Type 2 diabetes mellitus with diabetic polyneuropathy E11.42 [facility] [address] [address]- 0421 Oct, [facility] [address], [place] [address]- 4684 Sep, [facility] [address], [place] [address]- 4528 August, [facility] [address], [place] [address]- 1076 Jul, [facility] [address], [place] [address]- 8309 Jul, Establishing care with new doctor, encounter for Z76.89 ; Type 2 diabetes mellitus with diabetic polyneuropathy E11.42 ; 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 ; Hyperlipidemia LDL goal <70 E78.5 ; Essential hypertension I10 and Chest pain, unspecified type R07.9 [facility] [address] [address]- 0069 Jul, [facility] [address], [place] [address]- 6679 Jul, [facility] [address], [place] [address]- 6077 Jun, [facility] [address], [place] [address]- 8784 Jun, [facility] [address], [place] [address]- 4792 Jun, [facility] [address], [place] [address]- 1166 Jun, Acute hyperglycemia R73.9 ; Type 2 diabetes mellitus with diabetic polyneuropathy E11.42 ; [facility] 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 Z79.4 ; HTN, goal below 130/80 I10 and Hyperlipidemia LDL goal <70 E78.5 [facility] [address] [facility] [id number] [place] [address] August, [facility] [address] [facility] [id number] [address] August, [facility] [address] [facility] [id number] [address] August, Acute vaginitis N76.0 ; Trichomonas vaginitis A59.01 and Vaginal discharge N89.8 IMMUNIZATIONS No Known Immunizations SOCIAL HISTORY Never Assessed REASON FOR VISIT Victoza start f/u attempt PLAN OF CARE VITAL SIGNS MEDICATIONS Unknown Medications RESULTS No Results PROCEDURES No Known procedures INSTRUCTIONS MEDICATIONS ADMINISTERED No Known Medications MEDICAL (GENERAL) HISTORY Type Description Date Medical History Type 2 diabetes mellitus with diabetic polyneuropathy Medical History [facility] 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
--- OUTSIDE RECORDS SUMMARY | 2018-01-22 19:09 | XMS REPORT ---
Author Author BRANNON LE [facility] Address [address] [place] [address] Care Team Providers Care Risk Adjustment Specialist Name Role Phone BRANNON LE Unavailable PROBLEMS Type Condition ICD9-CM Code [id number] Code Onset Dates Condition Status SNOMED Code Problem Atherosclerotic heart disease of [place] coronary artery without angina pectoris I25.10 Active 402677258 Problem Coronary artery disease involving [place] heart with angina pectoris, unspecified vessel or lesion type I25.119 Active 03452001 Problem Cigarette smoker F17.210 Active 25289418 Problem Atherosclerotic heart disease of [place] coronary artery with unstable angina pectoris I25.110 Active 52894096524760931 Problem Restless leg syndrome G25.81 Active 68241105 Problem PTSD (post-traumatic stress disorder) F43.10 Active 02026152 Problem Gastroesophageal reflux disease without esophagitis K21.9 Active 442707997 Problem Coronary artery disease involving [place] coronary artery of [place] heart with angina pectoris I25.119 Active 4351710295835 Problem Moderate episode of recurrent major depressive disorder F33.1 Active 245398335 Problem Elevated BUN R79.9 Active 623766670 Problem Type 2 diabetes mellitus with diabetic polyneuropathy E11.42 Active 06282275 Problem Hyperlipidemia LDL goal <70 E78.5 Active 26705922 Problem PVC (premature ventricular contraction) I49.3 Active 65941446 Problem Chest pain, unspecified type R07.9 Active 82749937 Problem care home 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 Z79.4 Active 379375690 Problem Essential hypertension I10 Active 49049067 ALLERGIES No Information ENCOUNTERS Encounter Location Date Diagnosis [facility] [place] [id number], [place] [address] Jan, [facility] [place] [id number], [place] [address] Jan, [facility] [place] [address], [place] [address] Jan, [place] [id number] [place] [address] 87283- 2813 Dec, Bilateral hand numbness R20.0 [place] [id number] [place] [address]1998- 2005 Dec, PTSD (post-traumatic stress disorder) F43.10 and Moderate episode of recurrent major depressive disorder F33.1 [place] [id number] [place] [address] 39830- 7223 24 Dec, 2017 Type 2 diabetes mellitus with diabetic polyneuropathy E11.42 [place] [id number] [place] [address] 23053- 2444 Dec, [place] [id number] [place] [address] 87691- 6714 Dec, Type 2 diabetes mellitus with diabetic polyneuropathy E11.42 and Atherosclerotic heart disease of [place] coronary artery with unstable angina pectoris I25.110 [place] [id number] [place] [address] 74379- 6590 Dec, Bilateral hand numbness R20.0 [place] [id number] [place] [address] 49588- 4381 Dec, Moderate episode of recurrent major depressive disorder F33.1 ; Type 2 diabetes mellitus with diabetic polyneuropathy E11.42 ; 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 ; Hyperlipidemia LDL goal <70 E78.5 ; Chest pain, unspecified type R07.9 ; Atherosclerotic heart disease of [place] coronary artery without angina pectoris I25.10 ; Cigarette smoker F17.210 ; Gastroesophageal reflux disease without esophagitis K21.9 and Restless leg syndrome G25.81 [place] [id number] [place] [address] 03316- 2409 18 Dec, 2017 PTSD (post-traumatic stress disorder) F43.10 and Moderate episode of recurrent major depressive disorder F33.1 [place] [id number] [place] [address] 10564- 3425 11 Dec, 2017 Moderate episode of recurrent major depressive disorder F33.1 [place] [id number] [place] [address] 88245- 7735 Dec, [place] [id number] [place] [address] 31054- 3677 Dec, [place] [id number] [place] [address] 45915- 3872 Dec, Uncontrolled type 2 diabetes mellitus with hyperglycemia E11.65 and Flatulence/gas pain/belching R14.0 [place] [id number] [place] [address] 04151- 7669 Nov, [place] [id number] [place] [address] 90849- 0986 Nov, PTSD (post-traumatic stress disorder) F43.10 and Moderate episode of recurrent major depressive disorder F33.1 [place] [id number] [place] [address] 55046- 0751 23 Nov, 2017 Chest pain, unspecified type R07.9 ; Coronary artery disease involving [place] coronary artery of [place] heart with angina pectoris I25.119 ; Restless leg syndrome G25.81 ; Hospital discharge follow-up Z09 and Type 2 diabetes mellitus with diabetic polyneuropathy E11.42 [place] [address] [place] [address] 53566- 9821 20 Nov, 2017 Hyperlipidemia LDL goal <70 E78.5 [place] [id number] [place] [address] 96236- 4164 14 Nov, 2017 Hospital discharge follow-up Z09 ; Chest pain, unspecified type R07.9 ; Coronary artery disease involving [place] coronary artery of [place] heart with angina pectoris I25.119 and Gastroesophageal reflux disease without esophagitis K21.9 [place] [id number] [place] [address] 84913- 9558 07 Nov, 2017 PTSD (post-traumatic stress disorder) F43.10 and Moderate episode of recurrent major depressive disorder F33.1 [place] [id number] [place] [address] 80004- 7638 Oct, Type 2 diabetes mellitus with diabetic polyneuropathy E11.42 [place] [id number] [place] [address] 07231- 6682 Oct, Diarrhea, unspecified type R19.7 ; Gastroesophageal reflux disease without esophagitis K21.9 and Vaginal discharge N89.8 [place] [address] [address]- 8467 Oct, Type 2 diabetes mellitus with diabetic polyneuropathy E11.42 [place] [id number] [place] [address] 34098- 2227 Oct, Hyperlipidemia LDL goal <70 E78.5 [place] [id number] [place] [address] 91271- 1804 Oct, Atherosclerotic heart disease of [place] coronary artery without angina pectoris I25.10 ; Coronary artery disease involving [place] heart with angina pectoris, unspecified vessel or lesion type I25.119 ; Type 2 diabetes mellitus with diabetic polyneuropathy E11.42 ; Hyperlipidemia LDL goal <70 E78.5 ; Cigarette smoker F17.210 and Post-traumatic stress reaction F43.10 [place] [id number] [place] [address] 67501- 5449 Oct, [place] [id number] [place] [address] 95170- 4767 Oct, Difficulty breathing R06.89 ; Hospital discharge follow-up Z09 and Bilateral lower extremity edema R60.0 [place] [id number] [place] [address] 92457- 3980 Oct, [facility] [address] [address] Oct, Dependent edema R60.9 [place] [id number] [place] [address] 02672- 3835 Oct, [place] [id number] [place] [address] 32702- 3929 Oct, [facility], [place] [address], [place] [address] 9[address] Oct, Type 2 diabetes mellitus with diabetic polyneuropathy E11.42 [facility], [place] [address], [place] [address] 8768 Oct, [facility], [place] [address], [place] [address] 0[address] Sep, [facility], [place] [address], [place] [address] August, [facility], [place] [id number] [place] [address] 77507- 4910 Jul, [facility], [place] [address], [place] [address] Jul, Establishing care with new doctor, encounter for Z76.89 ; Type 2 diabetes mellitus with diabetic polyneuropathy E11.42 ; care home 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 Z79.4 ; Hyperlipidemia LDL goal <70 E78.5 ; Essential hypertension I10 and Chest pain, unspecified type R07.9 [facility], [place] [address], [place] [address] Jul, [facility], [place] [id number], [place] [address] 5[address] Jul, [facility], [place] [id number], [place] [address] 9029 Jun, [facility], [place] [id number], [place] [address] 9204 Jun, [facility], [place] [address], [place] [address] 9851 Jun, [facility], [place] [id number], [place] [address] 4433 Jun, Acute hyperglycemia R73.9 ; Type 2 diabetes mellitus with diabetic polyneuropathy E11.42 ; care home 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 Z79.4 ; HTN, goal below 130/80 I10 and Hyperlipidemia LDL goal <70 E78.5 [facility] [address] [facility] [id number] [place] [address] August, [facility] [address] [facility] [id number] [place] [address] August, [facility] [address] [facility] [id number] [address] August, Acute vaginitis N76.0 ; Trichomonas vaginitis A59.01 and Vaginal discharge N89.8 IMMUNIZATIONS No Known Immunizations SOCIAL HISTORY Never Assessed REASON FOR VISIT PLAN OF CARE VITAL SIGNS MEDICATIONS Medication Instructions Dosage Frequency Start Date End Date Duration Status NovoFine 32G X 6 MM subcutaneously Once a day with injection 24h Dec, Active Victoza 18 MG/3ML Subcutaneous daily 1.8 mg 24h Dec, Active RESULTS No Results PROCEDURES No Known procedures INSTRUCTIONS MEDICATIONS ADMINISTERED No Known Medications MEDICAL (GENERAL) HISTORY Type Description Date Medical History Type 2 diabetes mellitus with diabetic polyneuropathy 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
--- OUTSIDE RECORDS SUMMARY | 2018-01-22 19:09 | XMS REPORT ---
Author Author ALBER PRICE [facility] Address [address] [place] [id number] Care Team Providers Care Casino Manager Name Role Phone ALBER PRICE Unavailable PROBLEMS ALLERGIES No Information ENCOUNTERS IMMUNIZATIONS No Known Immunizations SOCIAL HISTORY No smoking Hx information available REASON FOR VISIT PLAN OF CARE VITAL SIGNS MEDICATIONS Unknown Medications RESULTS No Results PROCEDURES INSTRUCTIONS MEDICATIONS ADMINISTERED No Known Medications MEDICAL (GENERAL) HISTORY
--- OUTSIDE RECORDS SUMMARY | 2018-01-22 19:09 | XMS REPORT ---
Author Author STEFFEN VANESSA [facility] Address [address] [place] [address] Care Team Providers Care Cnc Supervisor Name Role Phone STEFFEN VANESSA Unavailable PROBLEMS ALLERGIES ENCOUNTERS IMMUNIZATIONS No Known Immunizations SOCIAL HISTORY No smoking Hx information available REASON FOR VISIT PLAN OF CARE VITAL SIGNS MEDICATIONS RESULTS No Results PROCEDURES No Known procedures INSTRUCTIONS MEDICATIONS ADMINISTERED No Known Medications MEDICAL (GENERAL) HISTORY
--- OUTSIDE RECORDS SUMMARY | 2018-01-22 19:10 | XMS REPORT ---
Author Author OTF STEFFEN [facility] Address [address] [place] [address] Care Team Providers Care Slunk Skin Curer Name Role Phone OTFSTEFFEN Unavailable PROBLEMS Type Condition ICD9-CM Code UUG64-SE Code Onset Dates Condition Status SNOMED Code Problem Atherosclerotic heart disease of [place] coronary artery without angina pectoris I25.10 Active 263185294 Problem Coronary artery disease involving [place] heart with angina pectoris, unspecified vessel or lesion type I25.119 Active 64130505 Problem Cigarette smoker F17.210 Active 24984555 Problem Atherosclerotic heart disease of [place] coronary artery with unstable angina pectoris I25.110 Active 71569152998209213 Problem Restless leg syndrome G25.81 Active 77977370 Problem PTSD (post-traumatic stress disorder) F43.10 Active 11302313 Problem Gastroesophageal reflux disease without esophagitis K21.9 Active 586537604 Problem Coronary artery disease involving [place] coronary artery of [place] heart with angina pectoris I25.119 Active 3635312294712 Problem Moderate episode of recurrent major depressive disorder F33.1 Active 381185718 Problem Elevated BUN R79.9 Active 662047638 Problem Type 2 diabetes mellitus with diabetic polyneuropathy E11.42 Active 43048027 Problem Hyperlipidemia LDL goal <70 E78.5 Active 68577075 Problem PVC (premature ventricular contraction) I49.3 Active 41726451 Problem Chest pain, unspecified type R07.9 Active 47324812 Problem 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 Active 211736208 Problem Essential hypertension I10 Active 31140191 ALLERGIES Substance Reaction Event Type Date Status Adhesive Bandages Unknown Drug Allergy Nov, Active Toradol Unknown Non Drug Allergy Nov, Active ENCOUNTERS Encounter Location Date Diagnosis [facility] [place] [address] [facility] [id number] [address] Jan, [facility] [id number] [place] [address] 76780- 5260 Jan, [place] [address], [place] [address] Jan, [facility] [id number] [place] [address] Dec, Bilateral hand numbness R20.0 [place] [id number] [place] [address] 33268- 1504 Dec, PTSD (post-traumatic stress disorder) F43.10 and Moderate episode of recurrent major depressive disorder F33.1 [place] [id number] [place] [address] 99438- 0745 Dec, Type 2 diabetes mellitus with diabetic polyneuropathy E11.42 [place] [id number] [place] [address] 74041- 3570 Dec, [place] [id number] [place] [address] 72724- 6475 Dec, Type 2 diabetes mellitus with diabetic polyneuropathy E11.42 and Atherosclerotic heart disease of [place] coronary artery with unstable angina pectoris I25.110 [place] [id number] [place] [address] 13756- 8491 Dec, Bilateral hand numbness R20.0 [place] [address] [place] [address] 88841- 9970 Dec, Moderate episode of recurrent major depressive disorder F33.1 ; Type 2 diabetes mellitus with diabetic polyneuropathy E11.42 ; [facility] 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 Z79.4 ; Hyperlipidemia LDL goal <70 E78.5 ; Chest pain, unspecified type R07.9 ; Atherosclerotic heart disease of [place] coronary artery without angina pectoris I25.10 ; Cigarette smoker F17.210 ; Gastroesophageal reflux disease without esophagitis K21.9 and Restless leg syndrome G25.81 [place] [address], [place] [address]- 0947 Dec, PTSD (post-traumatic stress disorder) F43.10 and Moderate episode of recurrent major depressive disorder F33.1 [place] [address], [place] [address]- 0842 11 Dec, 2017 Moderate episode of recurrent major depressive disorder F33.1 [place] [address], [place] [address]- 9743 10 Dec, 2017 [place] [id number] [place] [address] 14320- 0170 Dec, [place] [id number] [place] [address] 05608- 5120 Dec, Uncontrolled type 2 diabetes mellitus with hyperglycemia E11.65 and Flatulence/gas pain/belching R14.0 [place] [id number] [place] [address] 90261- 2073 Nov, [place] [id number] [place] [address] 23920- 8744 Nov, PTSD (post-traumatic stress disorder) F43.10 and Moderate episode of recurrent major depressive disorder F33.1 [place] [address] [place] [address] 56155- 4613 Nov, Chest pain, unspecified type R07.9 ; Coronary artery disease involving [place] coronary artery of [place] heart with angina pectoris I25.119 ; Restless leg syndrome G25.81 ; Hospital discharge follow-up Z09 and Type 2 diabetes mellitus with diabetic polyneuropathy E11.42 [place] [id number] [place] [address] 39463- 6685 20 Nov, 2017 Hyperlipidemia LDL goal <70 E78.5 [place] [id number] [place] [address] 38049- 6301 14 Nov, 2017 Hospital discharge follow-up Z09 ; Chest pain, unspecified type R07.9 ; Coronary artery disease involving [place] coronary artery of [place] heart with angina pectoris I25.119 and Gastroesophageal reflux disease without esophagitis K21.9 [place] [address] [place] [address] 85601- 9270 Nov, PTSD (post-traumatic stress disorder) F43.10 and Moderate episode of recurrent major depressive disorder F33.1 [place] [address] [address]- 2983 Oct, Type 2 diabetes mellitus with diabetic polyneuropathy E11.42 [place] [address] 8[address]64- 9823 Oct, Diarrhea, unspecified type R19.7 ; Gastroesophageal reflux disease without esophagitis K21.9 and Vaginal discharge N89.8 [place] [address] 98342- 4346 Oct, Type 2 diabetes mellitus with diabetic polyneuropathy E11.42 [place] [address] 33847- 5933 Oct, Hyperlipidemia LDL goal <70 E78.5 [place] [address] 52326- 2432 Oct, Atherosclerotic heart disease of [place] coronary artery without angina pectoris I25.10 ; Coronary artery disease involving [place] heart with angina pectoris, unspecified vessel or lesion type I25.119 ; Type 2 diabetes mellitus with diabetic polyneuropathy E11.42 ; Hyperlipidemia LDL goal <70 E78.5 ; Cigarette smoker F17.210 and Post-traumatic stress reaction F43.10 [place] [address] 80275- 6809 Oct, [place] [address] [address]- 4424 Oct, Difficulty breathing R06.89 ; Hospital discharge follow-up Z09 and Bilateral lower extremity edema R60.0 [place] [address] 22808- 8848 Oct, [facility] [address] [address] 05 Oct, 2017 Dependent edema R60.9 [place] [address] [address]- 2423 Oct, [facility] [address], [place] [address] Oct, [facility] [id number] [place] [address] 73407- 7473 Oct, Type 2 diabetes mellitus with diabetic polyneuropathy E11.42 [facility] [id number] [place] [address] 97389- 9873 Oct, [facility] [id number] [place] [address] 30007- 9102 Sep, [facility] [id number] [place] [address] 19960- 3920 August, [facility] [id number] [place] [address] 96607- 9915 Jul, [facility] [id number] [place] [address] 13171- 4916 Jul, Establishing care with new doctor, encounter for Z76.89 ; Type 2 diabetes mellitus with diabetic polyneuropathy E11.42 ; 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 ; Hyperlipidemia LDL goal <70 E78.5 ; Essential hypertension I10 and Chest pain, unspecified type R07.9 [facility] [address] [place] [address] 34334- 7352 Jul, [facility] [id number] [place] [address] 74801- 0609 Jul, [facility] [id number] [place] [address] 12241- 7564 Jun, [facility] [id number] [place] [address] 08717- 5008 Jun, [facility] [id number] [place] [address] 42219- 3868 Jun, [facility] [address] [place] [address] 71201- 6806 Jun, Acute hyperglycemia R73.9 ; Type 2 diabetes mellitus with diabetic polyneuropathy E11.42 ; 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 [address] [facility] [id number] [address] August, [facility] [address] [facility] [id number] [address] August, Acute vaginitis N76.0 ; Trichomonas vaginitis A59.01 and Vaginal discharge N89.8 IMMUNIZATIONS No Known Immunizations SOCIAL HISTORY Never Assessed REASON FOR VISIT jo ann/kishan Rodriguez MA PLAN OF CARE Activity Details Follow Up 3 Weeks Reason: Follow-up VITAL SIGNS Height 62 in 2017-12-11 Weight 150.7 lbs 2017-12-11 Heart Rate 101 bpm 2017-12-11 Respiratory Rate 18 2017-12-11 Oximetry 98 % 2017-12-11 BMI 27.56 kg/m2 2017-12-11 Blood pressure systolic 140 mmHg 2017-12-11 Blood pressure diastolic 80 mmHg 2017-12-11 MEDICATIONS Medication Instructions Dosage Frequency Start Date End Date Duration Status Pen [place] 31G X 6 MM Active Lasix 20 mg Orally Once a day 1 tablet 24h Oct, 03 days Active Zantac 150 MG Orally Once a day 1 tablet at bedtime 24h Oct, 30 day(s) Active Blood Glucose Monitor System w/Device as directed Jun, Active Blood Glucose Test Strip test strips One Touch Verio strip and Delica lancet 3 times a day test blood sugar 8h Jun, 30 days Active Lisinopril 5 mg Orally Once a day 1 tablet 24h Jul, 30 day(s) Active Ranolazine ER 500 mg Orally Twice a day 1 tablet 12h Nov, 30 day(s) Active Metformin HCl 1000 MG Orally Twice a day 1 tablet with meals 12h 30 days Active Humalog KwikPen 100 UNIT/ML Subcutaneous 3 times a day before meals Inject 15 Units with meals Active Levemir FlexTouch 100 UNIT/ML Subcutaneous 2 times a day 18 Units 12h Active Amitriptyline HCl 25 MG Orally Once a day at bedtime 1 tablet Nov, 30 day(s) Active Atorvastatin Calcium 80 MG Orally Once a day 1 tablet 24h 30 days Active Pantoprazole Sodium 40 mg Orally Once a day 1 tablet 24h Nov, 30 day(s) Active Isosorbide Mononitrate ER 30 MG Orally Once a day 1 tablet in the morning 24h Nov, 30 day(s) Active Aspirin 81 81 MG Orally Once a day 1 tablet 24h Jan, 30 days Active Zoloft 100 MG Orally Once a day 1 tablet 24h Nov, 30 days Active Plavix 75 MG Orally Once a day 1 tablet 24h Oct, 30 days Active RESULTS No Results PROCEDURES No Known procedures INSTRUCTIONS MEDICATIONS ADMINISTERED No Known Medications MEDICAL (GENERAL) HISTORY Type Description Date Medical History Type 2 diabetes mellitus with diabetic polyneuropathy 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
--- OUTSIDE RECORDS SUMMARY | 2018-01-22 19:10 | XMS REPORT ---
Author Author NEW LE Organization [facility] Address [address] [place] [address] Care Team Providers Care Gastroenterology Manager Name Role Phone NEW LE Unavailable PROBLEMS Type Condition ICD9-CM Code HSC30-OH Code Onset Dates Condition Status SNOMED Code Problem Atherosclerotic heart disease of [place] coronary artery without angina pectoris I25.10 Active 717343670 Problem Coronary artery disease involving [place] heart with angina pectoris, unspecified vessel or lesion type I25.119 Active 63415088 Problem Cigarette smoker F17.210 Active 04334979 Problem Atherosclerotic heart disease of [place] coronary artery with unstable angina pectoris I25.110 Active 03391851461309212 Problem Restless leg syndrome G25.81 Active 80988564 Problem PTSD (post-traumatic stress disorder) F43.10 Active 40696919 Problem Gastroesophageal reflux disease without esophagitis K21.9 Active 300850425 Problem Coronary artery disease involving [place] coronary artery of [place] heart with angina pectoris I25.119 Active 7895527800780 Problem Moderate episode of recurrent major depressive disorder F33.1 Active 277991961 Problem Elevated BUN R79.9 Active 361317155 Problem Type 2 diabetes mellitus with diabetic polyneuropathy E11.42 Active 85631780 Problem Hyperlipidemia LDL goal <70 E78.5 Active 56396053 Problem PVC (premature ventricular contraction) I49.3 Active 83310557 Problem Chest pain, unspecified type R07.9 Active 41002847 Problem 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.4 Active 236012377 Problem Essential hypertension I10 Active 62347262 ALLERGIES No Information ENCOUNTERS Encounter Location Date Diagnosis [facility] [id number] [address] Jan, [facility] [id number] [address] Jan, [facility] [address] [place] [address] 15608- 5489 Dec, Bilateral hand numbness R20.0 [place] [address] [place] [address] 20860- 3569 Dec, PTSD (post-traumatic stress disorder) F43.10 and Moderate episode of recurrent major depressive disorder F33.1 [place] [id number] [place] [address] 65682- 3783 24 Dec, 2017 Type 2 diabetes mellitus with diabetic polyneuropathy E11.42 [place] [id number] [place] [address] 65719- 4757 Dec, [place] [id number] [place] [address] 03406- 9067 Dec, Type 2 diabetes mellitus with diabetic polyneuropathy E11.42 and Atherosclerotic heart disease of [place] coronary artery with unstable angina pectoris I25.110 [place] [id number] [place] [address] 49490- 9368 18 Dec, 2017 Bilateral hand numbness R20.0 [place] [id number] [place] [address] 90502- 4629 18 Dec, 2017 Moderate episode of recurrent major depressive disorder F33.1 ; Type 2 diabetes mellitus with diabetic polyneuropathy E11.42 ; 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.4 ; Hyperlipidemia LDL goal <70 E78.5 ; Chest pain, unspecified type R07.9 ; Atherosclerotic heart disease of [place] coronary artery without angina pectoris I25.10 ; Cigarette smoker F17.210 ; Gastroesophageal reflux disease without esophagitis K21.9 and Restless leg syndrome G25.81 [place] [address] [place] [address] 20825- 0520 18 Dec, 2017 PTSD (post-traumatic stress disorder) F43.10 and Moderate episode of recurrent major depressive disorder F33.1 [place] [address] [place] [address] 66755- 1565 11 Dec, 2017 Moderate episode of recurrent major depressive disorder F33.1 [place] [id number] [place] [address] 71788- 3956 10 Dec, 2017 [place] [id number] [place] [address] 32679- 4161 Dec, [place] [id number] [place] [address] 93470- 9300 Dec, Uncontrolled type 2 diabetes mellitus with hyperglycemia E11.65 and Flatulence/gas pain/belching R14.0 [place] [address] 57959- 5375 Nov, [place] [id number] [place] [address] 21228- 6479 Nov, PTSD (post-traumatic stress disorder) F43.10 and Moderate episode of recurrent major depressive disorder F33.1 [place] [id number] [place] [address] 35423- 8294 Nov, Chest pain, unspecified type R07.9 ; Coronary artery disease involving [place] coronary artery of [place] heart with angina pectoris I25.119 ; Restless leg syndrome G25.81 ; Hospital discharge follow-up Z09 and Type 2 diabetes mellitus with diabetic polyneuropathy E11.42 [place] [id number] [place] [address] 04060- 3133 20 Nov, 2017 Hyperlipidemia LDL goal <70 E78.5 [place] [id number] [place] [address] 09002- 5852 14 Nov, 2017 Hospital discharge follow-up Z09 ; Chest pain, unspecified type R07.9 ; Coronary artery disease involving [place] coronary artery of [place] heart with angina pectoris I25.119 and Gastroesophageal reflux disease without esophagitis K21.9 [place] [address] 74707- 8354 07 Nov, 2017 PTSD (post-traumatic stress disorder) F43.10 and Moderate episode of recurrent major depressive disorder F33.1 [place] [id number] [place] [address] 24592- 8806 Oct, Type 2 diabetes mellitus with diabetic polyneuropathy E11.42 [facility] [id number] [place] [address] 43670- 4009 Oct, Diarrhea, unspecified type R19.7 ; Gastroesophageal reflux disease without esophagitis K21.9 and Vaginal discharge N89.8 [place] [id number] [place] [address] 62703- 7314 Oct, Type 2 diabetes mellitus with diabetic polyneuropathy E11.42 [facility] [address] 94478- 1246 Oct, Hyperlipidemia LDL goal <70 E78.5 [place] [address] 52466- 0670 Oct, Atherosclerotic heart disease of [place] coronary artery without angina pectoris I25.10 ; Coronary artery disease involving [place] heart with angina pectoris, unspecified vessel or lesion type I25.119 ; Type 2 diabetes mellitus with diabetic polyneuropathy E11.42 ; Hyperlipidemia LDL goal <70 E78.5 ; Cigarette smoker F17.210 and Post-traumatic stress reaction F43.10 [place] [address] 08603- 6908 Oct, [place] [address] 76699- 0435 Oct, Difficulty breathing R06.89 ; Hospital discharge follow-up Z09 and Bilateral lower extremity edema R60.0 [place] [address] 12062- 0394 Oct, [facility] [id number] [place] [address] 04711 -7860 Oct, Dependent edema R60.9 [facility] [address] 16779- 4692 Oct, [facility] [address] 90897- 9762 Oct, [facility] [address] 53036- 1427 Oct, Type 2 diabetes mellitus with diabetic polyneuropathy E11.42 [facility] [address], [place] [address] 6[address] Oct, [facility] [address], [place] [address] 9260 Sep, [facility] [address], [place] [address] 0[address] August, [facility] [address], [place] [address] 7[address] Jul, [facility] [address] [place] [address] 19462- 7427 Jul, Establishing care with new doctor, encounter for Z76.89 ; Type 2 diabetes mellitus with diabetic polyneuropathy E11.42 ; 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.4 ; Hyperlipidemia LDL goal <70 E78.5 ; Essential hypertension I10 and Chest pain, unspecified type R07.9 [facility] [address] [address] 6940 Jul, [facility] [address] [place] [address] 80362- 4296 Jul, [facility] [address], [place] [address] 9761 Jun, [facility] [address] [address] 5943 Jun, [facility] [address], [place] [address]- 4375 Jun, [facility] [address] [place] [address] 24271- 6248 Jun, Acute hyperglycemia R73.9 ; Type 2 diabetes mellitus with diabetic polyneuropathy E11.42 ; 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.4 ; HTN, goal below 130/80 I10 and Hyperlipidemia LDL goal <70 E78.5 [facility] [address] [address] August, [facility] [address] [facility] [id number] [address] August, [facility] [address] [facility] [id number] [place] [address] August, Acute vaginitis N76.0 ; Trichomonas vaginitis A59.01 and Vaginal discharge N89.8 IMMUNIZATIONS No Known Immunizations SOCIAL HISTORY Never Assessed REASON FOR VISIT BS F/u attempt PLAN OF CARE VITAL SIGNS MEDICATIONS [...]
--- OUTSIDE RECORDS SUMMARY | 2018-01-22 19:10 | XMS REPORT ---
Author Author NEW LE Organization [facility] Address [address] [place] [address] Care Team Providers Care Quality Cloth Tester Name Role Phone NEW LE Unavailable PROBLEMS Type Condition ICD9-CM Code MOZ01-KJ Code Onset Dates Condition Status SNOMED Code Problem Atherosclerotic heart disease of [place] coronary artery without angina pectoris I25.10 Active 458303853 Problem Coronary artery disease involving [place] heart with angina pectoris, unspecified vessel or lesion type I25.119 Active 78003475 Problem Cigarette smoker F17.210 Active 06439938 Problem Atherosclerotic heart disease of [place] coronary artery with unstable angina pectoris I25.110 Active 28802622235935472 Problem Restless leg syndrome G25.81 Active 49059510 Problem PTSD (post-traumatic stress disorder) F43.10 Active 13752637 Problem Gastroesophageal reflux disease without esophagitis K21.9 Active 227189986 Problem Coronary artery disease involving [place] coronary artery of [place] heart with angina pectoris I25.119 Active 3890015458715 Problem Moderate episode of recurrent major depressive disorder F33.1 Active 669835984 Problem Elevated BUN R79.9 Active 861752415 Problem Type 2 diabetes mellitus with diabetic polyneuropathy E11.42 Active 99344283 Problem Hyperlipidemia LDL goal <70 E78.5 Active 00722103 Problem PVC (premature ventricular contraction) I49.3 Active 81462882 Problem Chest pain, unspecified type R07.9 Active 22168773 Problem longterm 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 Z79.4 Active 461201781 Problem Essential hypertension I10 Active 83729463 ALLERGIES Substance Reaction Event Type Date Status Adhesive Bandages Unknown Drug Allergy Dec, Active Toradol Unknown Non Drug Allergy Dec, Active ENCOUNTERS Encounter Location Date Diagnosis [facility] [address] [facility] [id number] [address] Jan, [facility] [id number] [address] Jan, [facility] [address], [place] [address]43 Jan, [facility] [id number] [place] [address] 14928- 9234 Dec, Bilateral hand numbness R20.0 [facility] [id number] [place] [address] 14486- 7145 Dec, PTSD (post-traumatic stress disorder) F43.10 and Moderate episode of recurrent major depressive disorder F33.1 [facility] [address] [place] [address] 02617- 0750 24 Dec, 2017 Type 2 diabetes mellitus with diabetic polyneuropathy E11.42 [place] [id number] [place] [address] 13511- 0664 Dec, [place] [id number] [place] [address] 81410- 6254 Dec, Type 2 diabetes mellitus with diabetic polyneuropathy E11.42 and Atherosclerotic heart disease of [place] coronary artery with unstable angina pectoris I25.110 [place] [id number] [place] [address] 02710- 9803 Dec, Bilateral hand numbness R20.0 [facility] [address] [place] [address] 54510- 7081 Dec, Moderate episode of recurrent major depressive disorder F33.1 ; Type 2 diabetes mellitus with diabetic polyneuropathy E11.42 ; 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 ; Hyperlipidemia LDL goal <70 E78.5 ; Chest pain, unspecified type R07.9 ; Atherosclerotic heart disease of [place] coronary artery without angina pectoris I25.10 ; Cigarette smoker F17.210 ; Gastroesophageal reflux disease without esophagitis K21.9 and Restless leg syndrome G25.81 [facility] [address] [place] [address] 04724- 2225 18 Dec, 2017 PTSD (post-traumatic stress disorder) F43.10 and Moderate episode of recurrent major depressive disorder F33.1 [place] [address], [place] [address]- 1338 11 Dec, 2017 Moderate episode of recurrent major depressive disorder F33.1 [place] [address] [place] [address] 84573- 8014 10 Dec, 2017 [place] [id number] [place] [address] 43360- 8603 Dec, [place] [id number] [place] [address] 49334- 0754 Dec, Uncontrolled type 2 diabetes mellitus with hyperglycemia E11.65 and Flatulence/gas pain/belching R14.0 [place] [id number] [place] [address] 21302- 4599 Nov, [place] [id number] [place] [address] 22583- 9405 Nov, PTSD (post-traumatic stress disorder) F43.10 and Moderate episode of recurrent major depressive disorder F33.1 [place] [address] [place] [address] 49227- 6587 Nov, Chest pain, unspecified type R07.9 ; Coronary artery disease involving [place] coronary artery of [place] heart with angina pectoris I25.119 ; Restless leg syndrome G25.81 ; Hospital discharge follow-up Z09 and Type 2 diabetes mellitus with diabetic polyneuropathy E11.42 [place] [address] [place] [address] 08446- 7555 20 Nov, 2017 Hyperlipidemia LDL goal <70 E78.5 [place] [id number] [place] [address] 47248- 2917 14 Nov, 2017 Hospital discharge follow-up Z09 ; Chest pain, unspecified type R07.9 ; Coronary artery disease involving [place] coronary artery of [place] heart with angina pectoris I25.119 and Gastroesophageal reflux disease without esophagitis K21.9 [place] [address] [place] [address] 52202- 7449 07 Nov, 2017 PTSD (post-traumatic stress disorder) F43.10 and Moderate episode of recurrent major depressive disorder F33.1 [place] [id number] [place] [address] 19624- 8013 Oct, Type 2 diabetes mellitus with diabetic polyneuropathy E11.42 [place] [id number] [place] [address] 41477- 1059 Oct, Diarrhea, unspecified type R19.7 ; Gastroesophageal reflux disease without esophagitis K21.9 and Vaginal discharge N89.8 [place] [id number] [place] [address] 06847- 9789 Oct, Type 2 diabetes mellitus with diabetic polyneuropathy E11.42 [place] [address] 57667- 1538 Oct, Hyperlipidemia LDL goal <70 E78.5 [place] [address] 20037- 0564 Oct, Atherosclerotic heart disease of [place] coronary artery without angina pectoris I25.10 ; Coronary artery disease involving [place] heart with angina pectoris, unspecified vessel or lesion type I25.119 ; Type 2 diabetes mellitus with diabetic polyneuropathy E11.42 ; Hyperlipidemia LDL goal <70 E78.5 ; Cigarette smoker F17.210 and Post-traumatic stress reaction F43.10 [place] [id number] [place] [address] 68364- 5572 Oct, [facility] [id number] [place] [address] 10971- 6350 Oct, Difficulty breathing R06.89 ; Hospital discharge follow-up Z09 and Bilateral lower extremity edema R60.0 [place] [id number] [place] [address] 15039- 4402 Oct, [facility] [id number] [place] [address] 86364 -7890 Oct, Dependent edema R60.9 [place] [id number] [place] [address] 88793- 8494 Oct, [facility] [address], [place] [address]- 8733 Oct, [facility] [id number] [place] [address] 58802- 8758 Oct, Type 2 diabetes mellitus with diabetic polyneuropathy E11.42 [facility] [address], [place] [address]- 3670 Oct, [facility] [id number], [place] [address]- 8869 Sep, [facility] [id number] [place] [address] 36023- 0536 August, [facility] [id number] [place] [address] 51800- 8036 Jul, [facility] [id number] [place] [address] 63152- 3608 Jul, Establishing care with new doctor, encounter for Z76.89 ; Type 2 diabetes mellitus with diabetic polyneuropathy E11.42 ; longterm 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 Z79.4 ; Hyperlipidemia LDL goal <70 E78.5 ; Essential hypertension I10 and Chest pain, unspecified type R07.9 [facility] [address], [place] [address]- 4451 Jul, [facility] [address], [place] [address]- 6272 Jul, [facility] [address], [place] [address]- 1211 Jun, [facility] [address], [place] [address]- 5231 Jun, [facility] [id number], [place] [address]- 0170 Jun, [facility] [address], [place] [address]- 6578 Jun, Acute hyperglycemia R73.9 ; Type 2 diabetes mellitus with diabetic polyneuropathy E11.42 ; longterm 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 Z79.4 ; HTN, goal below 130/80 I10 and Hyperlipidemia LDL goal <70 E78.5 [facility] [address] [facility] [id number] [address] August, [facility] [address] [facility] [id number] [address] August, [facility] [address] [facility] [id number] [address] August, Acute vaginitis N76.0 ; Trichomonas vaginitis A59.01 and Vaginal discharge N89.8 IMMUNIZATIONS No Known Immunizations SOCIAL HISTORY Never Assessed REASON FOR VISIT Blood Sugar Pt states she is here for a check up, States BG has been good at home SADE Hardin PLAN OF CARE Activity Details Follow Up 3 Months Reason: VITAL SIGNS Height 62 in 2017-12-20 Weight 155.9 lbs 2017-12-20 Temperature 97.6 degrees Fahrenheit 2017-12-20 Heart Rate 104 bpm 2017-12-20 Respiratory Rate 18 2017-12-20 BMI 28.51 kg/m2 2017-12-20 Blood pressure systolic 136 mmHg 2017-12-20 Blood pressure diastolic 82 mmHg 2017-12-20 MEDICATIONS Medication Instructions Dosage Frequency Start Date End Date Duration Status Plavix 75 MG Orally Once a day 1 tablet 24h 16 Oct, 2017 30 days Active Atorvastatin Calcium 80 MG Orally Once a day 1 tablet 24h 30 days Active Lisinopril 5 mg Orally Once a day 1 tablet 24h Jul, 30 day(s) Active Ranolazine ER 500 mg Orally Twice a day 1 tablet 12h 20 Nov, 2017 30 day(s) Active Pantoprazole Sodium 40 mg Orally Once a day 1 tablet 24h 14 Nov, 2017 30 day(s) Active Levemir FlexTouch 100 UNIT/ML Subcutaneous 2 times a day 18 Units 12h Active Metformin HCl 1000 MG Orally Twice a day 1 tablet with meals 12h 30 days Active Zoloft 100 MG Orally Once a day 1 tablet 24h 07 Nov, 2017 30 days Active Amitriptyline HCl 25 MG Orally Once a day at bedtime 1 tablet Nov, 30 day(s) Active Isosorbide Mononitrate ER 30 MG Orally Once a day 1 tablet in the morning 24h Nov, 30 day(s) Active Blood Glucose Test Strip test strips One Touch Verio strip and Delica lancet 3 times a day test blood sugar 8h Jun, 30 days Active Blood Glucose Monitor System w/Device as directed Jun, Active Aspirin 81 81 MG Orally Once a day 1 tablet 24h Jan, 30 days Active Lasix 20 mg Orally Once a day 1 tablet 24h Oct, 03 days Active Zantac 150 MG Orally Once a day 1 tablet at bedtime 24h Oct, 30 day(s) Active Humalog KwikPen 100 UNIT/ML Subcutaneous 3 times a day before meals Inject 15 Units with meals Active Pen [place] 31G X 6 MM Active RESULTS Name Result Date Reference Range H PYLORI (IN HOUSE) 2017-12-20 H. 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
--- OUTSIDE RECORDS SUMMARY | 2018-01-22 19:10 | XMS REPORT ---
Author Author NEW LE Organization [facility] Address [address] [place] [address] Care Team Providers Care Senior Linux Systems Administrator Name Role Phone NEW LE Unavailable PROBLEMS Type Condition ICD9-CM Code UIY09-AO Code Onset Dates Condition Status SNOMED Code Problem Atherosclerotic heart disease of [place] coronary artery without angina pectoris I25.10 Active 093295098 Problem Coronary artery disease involving [place] heart with angina pectoris, unspecified vessel or lesion type I25.119 Active 57696246 Problem Cigarette smoker F17.210 Active 12981300 Problem Atherosclerotic heart disease of [place] coronary artery with unstable angina pectoris I25.110 Active [id number] Problem Restless leg syndrome G25.81 Active 48958613 Problem PTSD (post-traumatic stress disorder) F43.10 Active 68150492 Problem Gastroesophageal reflux disease without esophagitis K21.9 Active 003561430 Problem Coronary artery disease involving [place] coronary artery of [place] heart with angina pectoris I25.119 Active 2841808084931 Problem Moderate episode of recurrent major depressive disorder F33.1 Active 900235038 Problem Elevated BUN R79.9 Active 906877291 Problem Type 2 diabetes mellitus with diabetic polyneuropathy E11.42 Active 57468668 Problem Hyperlipidemia LDL goal <70 E78.5 Active 39581103 Problem PVC (premature ventricular contraction) I49.3 Active 22738039 Problem Chest pain, unspecified type R07.9 Active 54077868 Problem prison 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 Z79.4 Active 715569079 Problem Essential hypertension I10 Active 97068605 ALLERGIES No Information ENCOUNTERS Encounter Location Date Diagnosis [facility] [id number], [place] [address] Jan, [facility] [id number] [address] Jan, [facility] [id number] [place] [address] Jan, [place] [id number] [place] [address]898[address] Dec, Bilateral hand numbness R20.0 [place] [id number] [place] [address] 50132- 8378 25 Dec, 2017 PTSD (post-traumatic stress disorder) F43.10 and Moderate episode of recurrent major depressive disorder F33.1 [place] [id number] [place] [address] 11460- 8038 24 Dec, 2017 Type 2 diabetes mellitus with diabetic polyneuropathy E11.42 [place] [id number] [place] [address] 08741- 5357 Dec, [place] [id number] [place] [address] 11270- 8313 Dec, Type 2 diabetes mellitus with diabetic polyneuropathy E11.42 and Atherosclerotic heart disease of [place] coronary artery with unstable angina pectoris I25.110 [place] [id number] [place] [address] 05495- 9714 18 Dec, 2017 Bilateral hand numbness R20.0 [place] [id number] [place] [address] 78308- 9556 18 Dec, 2017 Moderate episode of recurrent major depressive disorder F33.1 ; Type 2 diabetes mellitus with diabetic polyneuropathy E11.42 ; prison 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 Z79.4 ; Hyperlipidemia LDL goal <70 E78.5 ; Chest pain, unspecified type R07.9 ; Atherosclerotic heart disease of [place] coronary artery without angina pectoris I25.10 ; Cigarette smoker F17.210 ; Gastroesophageal reflux disease without esophagitis K21.9 and Restless leg syndrome G25.81 [place] [id number] [place] [address] 75539- 2841 18 Dec, 2017 PTSD (post-traumatic stress disorder) F43.10 and Moderate episode of recurrent major depressive disorder F33.1 [place] [address] [place] [address] 64912- 1280 Dec, Moderate episode of recurrent major depressive disorder F33.1 [place] [address] [address] Dec, [place] [id number] [place] [address] 67462- 9463 Dec, [place] [id number] [place] [address] 53974- 3786 Dec, Uncontrolled type 2 diabetes mellitus with hyperglycemia E11.65 and Flatulence/gas pain/belching R14.0 [place] [id number] [place] [address] 26210- 8925 Nov, [place] [id number] [place] [address] 28592- 2137 Nov, PTSD (post-traumatic stress disorder) F43.10 and Moderate episode of recurrent major depressive disorder F33.1 [place] [id number] [place] [address] 20017- 6469 23 Nov, 2017 Chest pain, unspecified type R07.9 ; Coronary artery disease involving [place] coronary artery of [place] heart with angina pectoris I25.119 ; Restless leg syndrome G25.81 ; Hospital discharge follow-up Z09 and Type 2 diabetes mellitus with diabetic polyneuropathy E11.42 [place] [id number] [place] [address] 99246- 6859 20 Nov, 2017 Hyperlipidemia LDL goal <70 E78.5 [place] [id number] [place] [address] 07719- 0782 14 Nov, 2017 Hospital discharge follow-up Z09 ; Chest pain, unspecified type R07.9 ; Coronary artery disease involving [place] coronary artery of [place] heart with angina pectoris I25.119 and Gastroesophageal reflux disease without esophagitis K21.9 [place] [address] [place] [address] 62846- 1048 07 Nov, 2017 PTSD (post-traumatic stress disorder) F43.10 and Moderate episode of recurrent major depressive disorder F33.1 [place] [id number] [place] [address] 44131- 6038 Oct, Type 2 diabetes mellitus with diabetic polyneuropathy E11.42 [place] [id number] [place] [address] 33403- 5988 Oct, Diarrhea, unspecified type R19.7 ; Gastroesophageal reflux disease without esophagitis K21.9 and Vaginal discharge N89.8 [place] [address] [address]- [address] Oct, Type 2 diabetes mellitus with diabetic polyneuropathy E11.42 [place] [id number] [place] [address] 05261- 2956 Oct, Hyperlipidemia LDL goal <70 E78.5 [place] [id number] [place] [address] 95640- 8694 Oct, Atherosclerotic heart disease of [place] coronary artery without angina pectoris I25.10 ; Coronary artery disease involving [place] heart with angina pectoris, unspecified vessel or lesion type I25.119 ; Type 2 diabetes mellitus with diabetic polyneuropathy E11.42 ; Hyperlipidemia LDL goal <70 E78.5 ; Cigarette smoker F17.210 and Post-traumatic stress reaction F43.10 [place] [id number] [place] [address] 54440- 0508 Oct, [place] [id number] [place] [address] 85892- 2126 Oct, Difficulty breathing R06.89 ; Hospital discharge follow-up Z09 and Bilateral lower extremity edema R60.0 [place] [id number] [place] [address] 96473- 2600 Oct, [facility] [id number] [place] [address] 44646 [address]1326 Oct, Dependent edema R60.9 [place] [id number] [place] [address] 28844- 7471 Oct, [place] [address] [address] Oct, [facility] [address], [place] [address] Oct, Type 2 diabetes mellitus with diabetic polyneuropathy E11.42 [facility] [address], [place] [address] Oct, [facility] [address] [place] [address] Sep, [facility] [address] [place] [address] August, [facility] [address] [place] [address] Jul, [facility] [address], [place] [address] Jul, Establishing care with new doctor, encounter for Z76.89 ; Type 2 diabetes mellitus with diabetic polyneuropathy E11.42 ; 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 ; Hyperlipidemia LDL goal <70 E78.5 ; Essential hypertension I10 and Chest pain, unspecified type R07.9 [facility] [address] [address] Jul, [facility] [address] [place] [address] Jul, [facility] [address], [place] [address] Jun, [facility] [address] [address] Jun, [facility] [address] [place] [address] Jun, [facility] [address] [place] [address] Jun, Acute hyperglycemia R73.9 ; Type 2 diabetes mellitus with diabetic polyneuropathy E11.42 ; prison 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 Z79.4 ; HTN, goal below 130/80 I10 and Hyperlipidemia LDL goal <70 E78.5 [facility] [address] [facility] [id number] [place] [id number] August, [facility] [address] [facility] [id number] [phone] August, [facility] [address] [id number] [address] August, Acute vaginitis N76.0 ; Trichomonas vaginitis A59.01 and Vaginal discharge N89.8 IMMUNIZATIONS No Known Immunizations SOCIAL HISTORY Never Assessed REASON FOR VISIT high BS PLAN OF CARE VITAL SIGNS MEDICATIONS Medication Instructions Dosage Frequency Start Date End Date Duration Status Victoza 18 MG/3ML Subcutaneous daily 0.6mg qd for 7days, then 1.2mf for 7 days then 1.8mg from then on. 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
[2018-01-22] MEDS ORDERED: PRD20T PO (19:59)
--- NOTE | 2018-01-22 19:59 | ED Upper Extremity ---
General Chief Complaint: Upper Extremity Stated Complaint: CARPAL TUNNEL Nursing Triage Note: AMBULATORY TO ED WITH C/O BILATERAL WRIST/HAND PAIN THAT PROVIDER AT [facility] BELIEVES TO BE CARPAL TUNNEL. HAS BEEN WEARING BILAT WRIST BRACES AND APPLYING ICE PACKS. APPT WITH JAMES MCMANUS 02/07. Nursing Sepsis Screen: No Definite Risk History of Present Illness Date Seen by Provider: Jan 22, 2018 Time Seen by Provider: 19:30 Initial Comments 37-year-old female presents for bilateral carpal tunnel syndrome. She has been wearing splints intermittently for the last month to 2 months. She is scheduled to see an orthopedic nurse practitioner later this month. She has known neuropathy secondary to her type 2 diabetes. Pain/Injury Location: bilateral wrist Method of Injury: unknown Modifying Factors: Improves With Rest Allergies and Home Medications Allergies Coded Allergies: coconut (Verified Allergy, Severe, anaphylactic reaction, 07/11/17) ketorolac (Unverified Allergy, Unknown, 08/19/15) Home Medications Albuterol Sulfate 18 Gm Hfa.aer.ad, 2 PUFF IH Q4H PRN for SHORTNESS OF BREATH Prescribed by: ERNESTO MEADOWS on 10/24/17 1406 Aspirin 81 Mg Tab.chew, 81 MG PO DAILY Prescribed by: RALPH BLANCO on 10/29/17 0923 Atorvastatin Calcium 80 Mg Tablet, 80 MG PO HS Prescribed by: KRISTAL IZAGUIRRE on 12/03/17 0758 Clopidogrel Bisulfate 75 Mg Tablet, 75 MG PO DAILY Prescribed by: RALPH BLANCO on 10/29/17 0923 Furosemide 40 Mg Tablet, 40 MG PO DAILY Prescribed by: RALPH BLANCO on 10/29/17 0923 Hydrocodone Bit/Acetaminophen 1 Tab Tab, 1 EACH PO Q6H PRN for PAIN-MODERATE Prescribed by: NESSA MIJARES on 12/23/17 0223 Insulin Determir 1,000 Units/10 Ml Soln, 20 UNITS SQ BID Prescribed by: NORIS KEVIN on 11/17/17 1131 Insulin Lispro 100 Unit/1 Ml Insuln.pen, 15 UNIT SQ TIDAC Prescribed by: NORIS KEVIN on 11/17/17 1131 Isosorbide Mononitrate 30 Mg Tab.er.24h, 30 MG PO DAILY Prescribed by: KRISTAL IZAGUIRRE on 11/17/17 0943 Lisinopril 5 Mg Tablet, 5 MG PO DAILY@0900 Prescribed by: KRISTAL IZAGUIRRE on 12/03/17 0758 Metoprolol Succinate 50 Mg Tab.er.24h, 50 MG PO BID Prescribed by: RALPH BLANCO on 10/29/17 1131 Naproxen 500 Mg Tablet, 500 MG PO BID Prescribed by: NESSA MIJARES on 12/23/17 0223 Pantoprazole Sodium 40 Mg Granpkt.dr, 40 MG PO DAILY Prescribed by: KRISTAL IZAGUIRRE on 11/17/17 0943 Potassium Chloride 20 Meq Tab.er.prt, 20 MEQ PO DAILY@0700 Prescribed by: RALPH BLANCO on 10/29/17 0923 Prednisone 20 Mg Tab, 20 MG PO DAILY Prescribed by: JOANNE PAYNE on 01/22/181958 Ranolazine 500 Mg Tab.er.12h, 500 MG PO BID Prescribed by: KRISTAL IZAGUIRRE on 12/03/17 075 Tramadol HCl 50 Mg Tablet, 50 MG PO Q6H PRN for PAIN-MODERATE TO SEVERE Prescribed by: VIN VACA on 01/09/18 0042 Patient Home Medication List Home Medication List Reviewed: Yes Review of Systems Constitutional: no symptoms reported, see HPI Musculoskeletal: see HPI, joint pain (Bilateral wrist), muscle pain, muscle weakness (Bilateral hands) All Other Systems Reviewed Negative Unless Noted: Yes Past Fecnmxm-Kcjkbl-Tqjuke Hx Past Med/Social Hx: Reviewed Nursing Past Med/Soc Hx Patient Social History Type Used: Cigarettes 2nd Hand Smoke Exposure: Yes Recent Foreign Travel: No Contact w/Someone Who Travel: No Recent Infectious Disease Expo: No Recent Hopitalizations: No Immunizations Up To Date Tetanus Booster (TDap): Unknown PED Vaccines UTD: No Date of Pneumonia Vaccine: September 09, 2016 Seasonal Allergies Seasonal Allergies: No Past Medical History Surgeries: Yes Breast, Section, Tubal Ligation Respiratory: No Currently Using CPAP: No Currently Using BIPAP: No Cardiac: Yes (Hx of stent to LAD.) Coronary Artery Disease, Heart Attack, Hypertension Neurological: Yes Neuropathy Reproductive Disorders: No Female Reproductive Disorders: Ovarian Cyst Sexually Transmitted Disease: No HIV/AIDS: No Genitourinary: No Gastrointestinal: No Musculoskeletal: Yes Chronic Back Pain Endocrine: Yes Diabetes, Insulin dep HEENT: No Loss of Vision: Denies Hearing Impairment: Denies Cancer: No Psychosocial: No Integumentary: No Blood Disorders: No Adverse Reaction/Blood Tranf: No Family Medical History Cardiovascular disease 19 FATHER, Onset:Unknown 19 MOTHER, Onset:Unknown Diabetes mellitus 19 FATHER 19 MOTHER Heart Disease, Diabetes, Other Conditions/Hx Physical Exam Vital Signs Vital Signs - First Documented 01/22/18 01/22/18 19:30 20:20 Temp 97.2 Pulse 100 Resp 17 B/P (MAP) 127/86 (100) Pulse Ox 98 Capillary Refill : Less Than 3 Seconds Height, Weight, BMI Height: 5'2.00" Weight: 150lbs. 0.0oz. 68.759941nv; 27.5 BMI Method:Stated General Appearance: WD/WN Cardiovascular: normal peripheral pulses, regular rate, rhythm Respiratory: chest non-tender, lungs clear, normal breath sounds Wrist: Yes normal inspection, Yes normal ROM, Yes pain, Yes soft tissue tenderness Hand: normal inspection, Bilateral Neurologic/Tendon: normal sensation, normal motor functions, normal tendon functions Neurologic/Psychiatric: no motor/sensory deficits, alert, normal mood/affect, oriented x 3 Bilateral wrists show no thenar atrophy. Full range of motion to the wrist and hands. Positive Tinel sign and positive [place]alen. 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 Decision time for Depature: 19:50 Referrals: [facility] (PCP) Primary Care Physician NEW LE (Family) Primary Care Physician Patient Instructions: Carpal Tunnel Exercises, Carpal Tunnel Syndrome (DC) Add. Discharge Instructions: Wear wrist splints as tolerated. You may alternate heat and ice for 20 minutes at a time to your wrists. Avoid repetitive motions. You may take Tylenol 650 mg every 8 hours for pain. Keep your scheduled appointment with orthopedics for later this month. Take the prednisone as directed. Monitor your blood sugars 2-3 times daily and adjust insulin for elevated glucose related to the prednisone. Follow-up with your primary care provider if symptoms are not improving or worsen. Return to emergency department for new, urgent health care problems. All discharge instructions reviewed with patient and/or family. Voiced understanding. Scripts Prednisone (Prednisone) 20 Mg Tab 20 MG PO DAILY, #6 TAB 0 Refills Prov: JOANNE PAYNE 01/22/18 JOANNE PAYNE Jan 22, 2018 19:59
[2018-01-22 20:20] VITALS: BP 127/86
== END 2018-01-22 20:24 | disposition home or self-care (01) ==
LOC: EDUNIT# 19:03 → ER 19:04
DX: G56.03 Carpal tunnel syndrome, bilateral upper limbs (principal); E11.42 Type 2 diabetes mellitus with diabetic polyneuropathy; G63 Polyneuropathy in diseases classified elsewhere; I25.10 Atherosclerotic heart disease of native coronary artery without angina pectoris; I25.2 Old myocardial infarction; I10 Essential (primary) hypertension; Z87.448 Personal history of other diseases of urinary system; Z82.49 Family history of ischemic heart disease and other diseases of the circulatory system; Z98.51 Tubal ligation status; Z98.890 Other specified postprocedural states; Z79.52 Long term (current) use of systemic steroids; Z77.22 Contact with and (suspected) exposure to environmental tobacco smoke (acute) (chronic); Z79.02 Long term (current) use of antithrombotics/antiplatelets; Z88.4 Allergy status to anesthetic agent; Z79.51 Long term (current) use of inhaled steroids; Z79.82 Long term (current) use of aspirin; Z79.4 Long term (current) use of insulin
CPT/HCPCS: 99282

== ENCOUNTER 2018-01-24 13:51 | Emergency (ER) | payer OTHER ==
[~2018-01-24] VITALS: Ht 157.5 cm; Wt 68.0 kg
--- OUTSIDE RECORDS SUMMARY | 2018-01-24 13:56 | XMS REPORT | Clinical Summary ---
Author Author [facility] Organization [facility] Address Unknown Phone Unavailable Care Team Providers Care Seismograph Shooter Name Role Phone Alfred Diaz MD PCP Unavailable Source Comments Some departments are not documenting in the electronic medical record. If you do not see the information that you expected, contact Release of Information in the Health Information Management department at [phone] for further assistance in locating additional records.[facility] Allergies Not on File Current [...]
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
[2018-01-24 16:30] VITALS: BP 129/88
== END 2018-01-24 16:30 | disposition home or self-care (01) ==
LOC: EDUNIT# 13:51 → ER 13:52
DX: S20.219A Contusion of unspecified front wall of thorax, initial encounter (principal); I25.10 Atherosclerotic heart disease of native coronary artery without angina pectoris; I25.2 Old myocardial infarction; I10 Essential (primary) hypertension; E11.9 Type 2 diabetes mellitus without complications; R40.2142 Coma scale, eyes open, spontaneous, at arrival to emergency department; R40.2252 Coma scale, best verbal response, oriented, at arrival to emergency department; R40.2362 Coma scale, best motor response, obeys commands, at arrival to emergency department; Z82.49 Family history of ischemic heart disease and other diseases of the circulatory system; Z87.448 Personal history of other diseases of urinary system; Z88.4 Allergy status to anesthetic agent; Z79.82 Long term (current) use of aspirin; Z79.51 Long term (current) use of inhaled steroids; Z79.4 Long term (current) use of insulin; Z79.52 Long term (current) use of systemic steroids; Z77.22 Contact with and (suspected) exposure to environmental tobacco smoke (acute) (chronic); Z98.890 Other specified postprocedural states; Z98.51 Tubal ligation status; Z95.5 Presence of coronary angioplasty implant and graft; V43.52XA Car driver injured in collision with other type car in traffic accident, initial encounter
CPT/HCPCS: 36415; 70450; 71260; 72125; 74160; 84484; 84703; 93005

== ENCOUNTER 2018-02-20 14:38 | Emergency (ER) | payer OTHER ==
[~2018-02-20] VITALS: Ht 157.5 cm; Wt 68.0 kg
--- OUTSIDE RECORDS SUMMARY | 2018-02-20 14:43 | XMS REPORT | Clinical Summary ---
Author Author [facility] Organization [facility] Address Unknown Phone Unavailable Care Team Providers Care Fiber Heel Piece Shaper Name Role Phone Alfred Diaz MD PCP Unavailable Source Comments Some departments are not documenting in the electronic medical record. If you do not see the information that you expected, contact Release of Information in the Health Information Management department at [phone] for further assistance in locating additional records.[facility] Allergies Not on File Current Medications Not [...]
--- OUTSIDE RECORDS SUMMARY | 2018-02-20 14:44 | XMS REPORT ---
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, unspecified vessel or lesion type I25.119 Active 26315359 Problem Carpal tunnel syndrome on both sides G56.03 Active [id number] Problem 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 Active [id number] Problem Moderate episode of recurrent major depressive disorder F33.1 Active 013237637 Problem PTSD (post-traumatic stress disorder) F43.10 Active 79642789 Problem Restless leg syndrome G25.81 Active 62835097 Problem Coronary artery disease involving s[place] coronary artery of sokaogon heart with angina pectoris I25.119 Active 5097679270533 Problem Elevated BUN R79.9 Active 838681560 Problem PVC (premature ventricular contraction) I49.3 Active 77762003 Problem Hyperlipidemia LDL goal <70 E78.5 Active 46401412 Problem Chest pain, unspecified type R07.9 Active 43021867 Problem 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.4 Active 656196639 Problem Essential hypertension I10 Active 88781604 Problem Type 2 diabetes mellitus with diabetic polyneuropathy E11.42 Active 35743563 Problem Atherosclerotic heart disease of [place] coronary artery without angina pectoris I25.10 Active 535310783 ALLERGIES No Information ENCOUNTERS Encounter Location Date Diagnosis [facility] [address] [facility] [id number] [address] Mar, [facility] [id number] [address] Feb, [facility] [address] [address] Jan, [facility] [id number] [place] [address] Jan, Carpal tunnel syndrome on both sides G56.03 [facility] [id number] [place] [address] Jan, PTSD (post-traumatic stress disorder) F43.10 and Moderate episode of recurrent major depressive disorder F33.1 [facility] [id number] [place] [address]690 Jan, [place] [id number] [place] [address] 2670 Jan, PTSD (post-traumatic stress disorder) F43.10 and Moderate episode of recurrent major depressive disorder F33.1 [facility] [id number] [place] [address]2504- 3254 Jan, Type 2 diabetes mellitus with diabetic polyneuropathy E11.42 [facility] [id number] [place] [address] 05297- 4099 Jan, PTSD (post-traumatic stress disorder) F43.10 and Moderate episode of recurrent major depressive disorder F33.1 [facility] [address] [address] Jan, PTSD (post-traumatic stress disorder) F43.10 and Moderate episode of recurrent major depressive disorder F33.1 [facility] [address] [address] Jan, [facility] [id number] [place] [address] Jan, Pain of left hand M79.642 and Pain in right hand M79.641 [facility] [address] [address] Jan, [facility] [id number] [place] [address]45[address] 2147 Dec, Bilateral hand numbness R20.0 [place] [id number] [place] [address] 10644- 5255 Dec, PTSD (post-traumatic stress disorder) F43.10 and Moderate episode of recurrent major depressive disorder F33.1 [place] [id number] [place] [address] 86298- 8240 24 Dec, 2017 Type 2 diabetes mellitus with diabetic polyneuropathy E11.42 [place] [id number] [place] [address] 01904- 8673 Dec, [place] [address] [address] Dec, Type 2 diabetes mellitus with diabetic polyneuropathy E11.42 and 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 [place] [id number] [place] [address] 60875- [address]134 Dec, Bilateral hand numbness R20.0 [place] [id number] [place] [address] 48579- 2927 18 Dec, 2017 Moderate episode of recurrent major depressive disorder F33.1 ; Type 2 diabetes mellitus with diabetic polyneuropathy E11.42 ; 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 ; Hyperlipidemia LDL goal <70 E78.5 ; Chest pain, unspecified type R07.9 ; Atherosclerotic heart disease of [place] coronary artery without angina pectoris I25.10 ; Cigarette smoker F17.210 ; Gastroesophageal reflux disease without esophagitis K21.9 and Restless leg syndrome G25.81 [place] [id number] [place] [address] 01934- 9296 18 Dec, 2017 PTSD (post-traumatic stress disorder) F43.10 and Moderate episode of recurrent major depressive disorder F33.1 [place] [id number] [place] [address] 73690- 0431 11 Dec, 2017 Moderate episode of recurrent major depressive disorder F33.1 [place] [id number] [place] [address] 17324- 9410 Dec, [place] [id number] [place] [address] 16442- 1219 Dec, [place] [id number] [place] [address]99- 1701 Dec, Uncontrolled type 2 diabetes mellitus with hyperglycemia E11.65 and Flatulence/gas pain/belching R14.0 [place] [id number] [place] [address] Nov, [place] [address] [address] Nov, PTSD (post-traumatic stress disorder) F43.10 and Moderate episode of recurrent major depressive disorder F33.[address] [address] Nov, Chest pain, unspecified type R07.9 ; Coronary artery disease involving s[place]ogon coronary artery of sokaogon heart with angina pectoris I25.119 ; Restless leg syndrome G25.81 ; Hospital discharge follow-up Z09 and Type 2 diabetes mellitus with diabetic polyneuropathy E11.42 [place] [id number] [place] [address] 54475- 6263 Nov, Hyperlipidemia LDL goal <70 E78.5 [place] [id number] [place] [address] 07514- [address]85 Nov, Hospital discharge follow-up Z09 ; Chest pain, unspecified type R07.9 ; Coronary artery disease involving s[place] coronary artery of s[place]ogon heart with angina pectoris I25.119 and Gastroesophageal reflux disease without esophagitis K21.9 [place] [id number] [place] [address] 8[address]44- 0467 Nov, PTSD (post-traumatic stress disorder) F43.10 and Moderate episode of recurrent major depressive disorder F33.1 [place] [id number] [place] [address]- [address] Oct, Type 2 diabetes mellitus with diabetic polyneuropathy E11.42 [facility] [id number] [place] [address] 45874- 5785 Oct, Diarrhea, unspecified type R19.7 ; Gastroesophageal reflux disease without esophagitis K21.9 and Vaginal discharge N89.8 [place] [id number] [place] [address] 27373- 6029 Oct, Type 2 diabetes mellitus with diabetic polyneuropathy E11.42 [place] [id number] [place] [address] 28930- 1460 Oct, Hyperlipidemia LDL goal <70 E78.5 [place] [address] [address] Oct, Atherosclerotic heart disease of [place] coronary artery without angina pectoris I25.10 ; 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, unspecified vessel or lesion type I25.119 ; Type 2 diabetes mellitus with diabetic polyneuropathy E11.42 ; Hyperlipidemia LDL goal <70 E78.5 ; Cigarette smoker F17.210 and Post-traumatic stress reaction F43.10 [place] [id number] [place] [address] 12072- 0504 Oct, [place] [id number] [place] [address] 48126- 8477 Oct, Difficulty breathing R06.89 ; Hospital discharge follow-up Z09 and Bilateral lower extremity edema R60.0 [place] [id number] [place] [address] 81637- 8015 Oct, [facility] [id number] [place] [address] 91004 -7254 Oct, Dependent edema R60.9 [facility] [id number] [place] [address] 70634- 2471 Oct, [facility] [id number] [place] [address] 85678- 9398 Oct, [facility] [id number] [address] Oct, Type 2 diabetes mellitus with diabetic polyneuropathy E11.42 [facility] [address] [address] Oct, [facility] [address] [address] Sep, [facility] [address] [address] August, [facility] [address] [address] Jul, [facility] [address] [place] [address] 70012- 3881 Jul, Establishing care with new doctor, encounter for Z76.89 ; Type 2 diabetes mellitus with diabetic polyneuropathy E11.42 ; 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 ; Hyperlipidemia LDL goal <70 E78.5 ; Essential hypertension I10 and Chest pain, unspecified type R07.9 [facility] [address], [place] [address] Jul, [facility] [address] [address] Jul, [facility] [address], [place] [address] Jun, [facility] [address] [address] Jun, [facility] [address] [address] Jun, [facility] [address] [address] Jun, Acute hyperglycemia R73.9 ; Type 2 diabetes mellitus with diabetic polyneuropathy E11.42 ; 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.4 ; HTN, goal below 130/80 I10 and Hyperlipidemia LDL goal <70 E78.5 [facility] [address] [facility] [id number] [place] [address] August, [facility] [address] [facility] [id number] [address] August, [facility] [address] [facility] [id number] [place] [address] August, Acute vaginitis N76.0 ; Trichomonas vaginitis [...] below 130/80 Medical History Hyperlipidemia LDL goal < 70 Medical History Left Lower Nodule 9mm stable [...]
--- OUTSIDE RECORDS SUMMARY | 2018-02-20 14:44 | XMS REPORT ---
Author Author HO CUBA Organization [facility] Address [address] [place] [address] Care Team Providers Care Speech Language Specialist Name Role Phone HO CUBA Unavailable PROBLEMS Type Condition ICD9-CM Code [id number] Code Onset Dates Condition Status SNOMED Code Problem Cigarette smoker F17.210 Active 15505714 Problem Gastroesophageal reflux disease without esophagitis K21.9 Active 937830166 Problem Coronary artery disease 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, unspecified vessel or lesion type I25.119 Active 60669991 Problem Carpal tunnel syndrome on both sides G56.03 Active [id number] Problem 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 Active 04871539834719420 Problem Moderate episode of recurrent major depressive disorder F33.1 Active 428711555 Problem PTSD (post-traumatic stress disorder) F43.10 Active 83521073 Problem Restless leg syndrome G25.81 Active 28629533 Problem Coronary artery disease involving [place] coronary artery of [place] heart with angina pectoris I25.119 Active 1296694588103 Problem Elevated BUN R79.9 Active 807938349 Problem PVC (premature ventricular contraction) I49.3 Active 64574638 Problem Hyperlipidemia LDL goal <70 E78.5 Active 27005942 Problem Chest pain, unspecified type R07.9 Active 92972412 Problem penitentiary 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 Z79.4 Active 960252539 Problem Essential hypertension I10 Active 36925529 Problem Type 2 diabetes mellitus with diabetic polyneuropathy E11.42 Active 06145414 Problem Atherosclerotic heart disease of [place] coronary artery without angina pectoris I25.10 Active 372718619 ALLERGIES No Information ENCOUNTERS Encounter Location Date Diagnosis [facility] [address] [facility] [id number] [address] Mar, [facility] [address] [id number] [address] Feb, [facility] [address] [address] Jan, [facility] [id number] [place] [address] 93676- 0941 Jan, Carpal tunnel syndrome on both sides G56.03 [facility] [id number] [place] [address] 20081- 7417 Jan, PTSD (post-traumatic stress disorder) F43.10 and Moderate episode of recurrent major depressive disorder F33.1 [facility] [id number] [place] [address] 39284- 4130 Jan, [place] [id number] [place] [address] 17997- 6187 Jan, PTSD (post-traumatic stress disorder) F43.10 and Moderate episode of recurrent major depressive disorder F33.1 [place] [id number] [place] [address] 82923- 4185 Jan, Type 2 diabetes mellitus with diabetic polyneuropathy E11.42 [facility] [id number] [place] [address] 65478- 5253 Jan, PTSD (post-traumatic stress disorder) F43.10 and Moderate episode of recurrent major depressive disorder F33.1 [place] [address] [address] Jan, PTSD (post-traumatic stress disorder) F43.10 and Moderate episode of recurrent major depressive disorder F33.1 [facility] [address] [place] [address] 66687- 4476 Jan, [facility] [id number] [place] [address] 26337 -7662 Jan, Pain of left hand M79.642 and Pain in right hand M79.641 [facility] [address] [place] [address] 15629- 6220 Jan, [place] [address] [place] [address] 36750- 2818 Dec, Bilateral hand numbness R20.0 [place] [id number] [place] [address] 33718- 3420 Dec, PTSD (post-traumatic stress disorder) F43.10 and Moderate episode of recurrent major depressive disorder F33.1 [place] [id number] [place] [address] 71280- 2166 24 Dec, 2017 Type 2 diabetes mellitus with diabetic polyneuropathy E11.42 [place] [id number] [place] [address] 43937- 4362 Dec, [place] [id number] [place] [address] 50915- 2593 Dec, Type 2 diabetes mellitus with diabetic polyneuropathy E11.42 and 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 [place] [id number] [place] [address] 69516- 3931 Dec, Bilateral hand numbness R20.0 [place] [id number] [place] [address] 18694- 2167 18 Dec, 2017 Moderate episode of recurrent major depressive disorder F33.1 ; Type 2 diabetes mellitus with diabetic polyneuropathy E11.42 ; penitentiary 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 Z79.4 ; Hyperlipidemia LDL goal <70 E78.5 ; Chest pain, unspecified type R07.9 ; Atherosclerotic heart disease of [place] coronary artery without angina pectoris I25.10 ; Cigarette smoker F17.210 ; Gastroesophageal reflux disease without esophagitis K21.9 and Restless leg syndrome G25.81 [place] [id number] [place] [address] 23631- 1245 18 Dec, 2017 PTSD (post-traumatic stress disorder) F43.10 and Moderate episode of recurrent major depressive disorder F33.1 [place] [id number] [place] [address] 15548- 7703 11 Dec, 2017 Moderate episode of recurrent major depressive disorder F33.1 [place] [address] [place] [address] 44146- 6469 Dec, [place] [id number] [place] [address] 83390- 5117 Dec, [place] [id number] [place] [address] 79653- 7030 Dec, Uncontrolled type 2 diabetes mellitus with hyperglycemia E11.65 and Flatulence/gas pain/belching R14.0 [place] [id number] [place] [address] 60980- 1749 Nov, [place] [address] 78204- 5779 Nov, PTSD (post-traumatic stress disorder) F43.10 and Moderate episode of recurrent major depressive disorder F33.[address] [address]60- 8180 Nov, Chest pain, unspecified type R07.9 ; Coronary artery disease involving [place] coronary artery of [place] heart with angina pectoris I25.119 ; Restless leg syndrome G25.81 ; Hospital discharge follow-up Z09 and Type 2 diabetes mellitus with diabetic polyneuropathy E11.42 [place] [id number] [place] [address] 52579- 5871 20 Nov, 2017 Hyperlipidemia LDL goal <70 E78.5 [place] [id number] [place] [address] 84126- 0735 14 Nov, 2017 Hospital discharge follow-up Z09 ; Chest pain, unspecified type R07.9 ; Coronary artery disease involving [place] coronary artery of [place] heart with angina pectoris I25.119 and Gastroesophageal reflux disease without esophagitis K21.9 [place] [id number] [place] [address] 78494- 0951 Nov, PTSD (post-traumatic stress disorder) F43.10 and Moderate episode of recurrent major depressive disorder F33.1 [place] [id number] [place] [address] 69044- 7834 Oct, Type 2 diabetes mellitus with diabetic polyneuropathy E11.42 [facility] [id number] [place] [address] 45551- 8799 Oct, Diarrhea, unspecified type R19.7 ; Gastroesophageal reflux disease without esophagitis K21.9 and Vaginal discharge N89.8 [place] [id number] [place] [address] 91449- 8998 Oct, Type 2 diabetes mellitus with diabetic polyneuropathy E11.42 [place] [id number] [place] [address] 53368- 3075 Oct, Hyperlipidemia LDL goal <70 E78.5 [place] [address] 85549- 0714 Oct, Atherosclerotic heart disease of [place] coronary artery without angina pectoris I25.10 ; Coronary artery disease 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, unspecified vessel or lesion type I25.119 ; Type 2 diabetes mellitus with diabetic polyneuropathy E11.42 ; Hyperlipidemia LDL goal <70 E78.5 ; Cigarette smoker F17.210 and Post-traumatic stress reaction F43.10 [place] [id number] [place] [address] 52762- 2303 Oct, [place] [id number] [place] [address] 40751- 7371 Oct, Difficulty breathing R06.89 ; Hospital discharge follow-up Z09 and Bilateral lower extremity edema R60.0 [place] [id number] [place] [address] 65168- 0840 Oct, [facility] [id number] [place] [address] 92457 -0895 Oct, Dependent edema R60.9 [facility] [id number] [place] [address] 37968- 4573 Oct, [place] [id number] [place] [address] 30175- 1173 Oct, [place] [address] [address] 3151 Oct, Type 2 diabetes mellitus with diabetic polyneuropathy E11.42 [facility] [address] [address] 9399 Oct, [facility] [address] [address]- 6780 Sep, [facility] [address] [address]- 5561 August, [facility] [address] [address]- 7649 Jul, [facility] [address] [address] 9060 Jul, Establishing care with new doctor, encounter for Z76.89 ; Type 2 diabetes mellitus with diabetic polyneuropathy E11.42 ; 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 ; Hyperlipidemia LDL goal <70 E78.5 ; Essential hypertension I10 and Chest pain, unspecified type R07.9 [facility] [address] [address] 4060 Jul, [facility] [address] [address]- 7692 Jul, [facility] [id number] [address]- 8228 Jun, [facility] [id number] [address]- 7694 Jun, [facility] [id number] [address]- 5888 Jun, [facility] [address] [address]- 8447 Jun, Acute hyperglycemia R73.9 ; Type 2 diabetes mellitus with diabetic polyneuropathy E11.42 ; penitentiary 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 Z79.4 ; HTN, goal below 130/80 I10 and Hyperlipidemia LDL goal <70 E78.5 [facility] [address] [facility] [place] [id number] [place] [address] August, [facility] [address] [facility] [place] [id number] [place] [address] August, [facility] [address] [facility] [place] [id number] [place] [address] August, Acute vaginitis N76.0 ; Trichomonas vaginitis A59.01 and Vaginal discharge N89.8 IMMUNIZATIONS No Known Immunizations SOCIAL HISTORY Never Assessed REASON FOR VISIT BH f/u mood issues PLAN OF CARE Activity Details Follow Up Next available Reason: VITAL SIGNS MEDICATIONS Unknown Medications RESULTS No Results PROCEDURES Procedure Date Ordered Result Body Site Psychotherapy, patient &/family, 60 minutes, established patient Feb 06, 2018 INSTRUCTIONS MEDICATIONS ADMINISTERED No Known Medications MEDICAL (GENERAL) HISTORY Type Description Date Medical History Type 2 diabetes mellitus with diabetic polyneuropathy Medical History penitentiary 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
--- OUTSIDE RECORDS SUMMARY | 2018-02-20 14:44 | XMS REPORT ---
Author Author HANG FELIPE [facility] Address [address] [place] [address] Care Team Providers Care Trading Specialist Name Role Phone HANG FELIPE Unavailable PROBLEMS Type Condition ICD9-CM Code [id number] Code Onset Dates Condition Status SNOMED Code Problem Cigarette smoker F17.210 Active 03881310 Problem Gastroesophageal reflux disease without esophagitis K21.9 Active 235870249 Problem Coronary artery disease involving [place] heart with angina pectoris, unspecified vessel or lesion type I25.119 Active 68372405 Problem Carpal tunnel syndrome on both sides G56.03 Active 08529552242343496 Problem 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 Active 20514499490292567 Problem Moderate episode of recurrent major depressive disorder F33.1 Active 152855848 Problem PTSD (post-traumatic stress disorder) F43.10 Active 91011191 Problem Restless leg syndrome G25.81 Active 56685159 Problem Coronary artery disease involving [place] coronary artery of [place] heart with angina pectoris I25.119 Active 3445600207063 Problem Elevated BUN R79.9 Active 161203303 Problem PVC (premature ventricular contraction) I49.3 Active 36408062 Problem Hyperlipidemia LDL goal <70 E78.5 Active 92771774 Problem Chest pain, unspecified type R07.9 Active 10180314 Problem intermediate frame tender 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 Z79.4 Active 653439526 Problem Essential hypertension I10 Active 16331171 Problem Type 2 diabetes mellitus with diabetic polyneuropathy E11.42 Active 50305517 Problem Atherosclerotic heart disease of [place] coronary artery without angina pectoris I25.10 Active 006563325 ALLERGIES No Information ENCOUNTERS Encounter Location Date Diagnosis [facility] [address] [facility] [id number] [address] Mar, [facility] [id number], [place] [address] Feb, [facility] [address], [place] [address]- 5[address] Jan, [facility] [id number] [place] [address] 44148- 8620 Jan, Carpal tunnel syndrome on both sides G56.03 [facility] [address] [place] [address] 32654- 0095 Jan, PTSD (post-traumatic stress disorder) F43.10 and Moderate episode of recurrent major depressive disorder F33.1 [facility] [address], [place] [address]- 2907 Jan, [place] [id number] [place] [address] 37484- 3753 Jan, PTSD (post-traumatic stress disorder) F43.10 and Moderate episode of recurrent major depressive disorder F33.1 [place] [id number] [place] [address] 90653- 2109 Jan, Type 2 diabetes mellitus with diabetic polyneuropathy E11.42 [facility] [id number] [place] [address] 21780- 5060 Jan, PTSD (post-traumatic stress disorder) F43.10 and Moderate episode of recurrent major depressive disorder F33.1 [place] [address], [place] [address]- 6715 Jan, PTSD (post-traumatic stress disorder) F43.10 and Moderate episode of recurrent major depressive disorder F33.1 [facility] [address], [place] [address]- 2043 Jan, [facility] [id number] [place] [address] 62622 -9102 Jan, Pain of left hand M79.642 and Pain in right hand M79.641 [facility] [address], [place] [address]- 8320 Jan, [facility] [address] [place] [address] 97012- 8059 Dec, Bilateral hand numbness R20.0 [place] [id number] [place] [address] 16513- 3806 Dec, PTSD (post-traumatic stress disorder) F43.10 and Moderate episode of recurrent major depressive disorder F33.1 [place] [id number] [place] [address] 19503- 5628 24 Dec, 2017 Type 2 diabetes mellitus with diabetic polyneuropathy E11.42 [place] [id number] [place] [address] 05170- 1873 Dec, [place] [id number] [place] [address] 75580- 7192 Dec, Type 2 diabetes mellitus with diabetic polyneuropathy E11.42 and 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 [place] [id number] [place] [address] 72618- 4257 Dec, Bilateral hand numbness R20.0 [place] [id number] [place] [address] 42943- 0948 18 Dec, 2017 Moderate episode of recurrent major depressive disorder F33.1 ; Type 2 diabetes mellitus with diabetic polyneuropathy E11.42 ; nursing home 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 Z79.4 ; Hyperlipidemia LDL goal <70 E78.5 ; Chest pain, unspecified type R07.9 ; Atherosclerotic heart disease of [place] coronary artery without angina pectoris I25.10 ; Cigarette smoker F17.210 ; Gastroesophageal reflux disease without esophagitis K21.9 and Restless leg syndrome G25.81 [place] [id number] [place] [address] 50658- 4089 18 Dec, 2017 PTSD (post-traumatic stress disorder) F43.10 and Moderate episode of recurrent major depressive disorder F33.1 [place] [id number] [place] [address] 18988- 4985 11 Dec, 2017 Moderate episode of recurrent major depressive disorder F33.1 [place] [address] [place] [address] 41411- 7387 Dec, [place] [id number] [place] [address] 49393- 5008 Dec, [place] [id number] [place] [address] 20414- 9614 Dec, Uncontrolled type 2 diabetes mellitus with hyperglycemia E11.65 and Flatulence/gas pain/belching R14.0 [place] [id number] [place] [address] 77682- 3228 Nov, [place] [id number] [place] [address] 92467- 1412 Nov, PTSD (post-traumatic stress disorder) F43.10 and Moderate episode of recurrent major depressive disorder F33.[address] [address]36- 4146 Nov, Chest pain, unspecified type R07.9 ; Coronary artery disease involving [place] coronary artery of [place] heart with angina pectoris I25.119 ; Restless leg syndrome G25.81 ; Hospital discharge follow-up Z09 and Type 2 diabetes mellitus with diabetic polyneuropathy E11.42 [place] [id number] [place] [address] 23756- 1949 Nov, Hyperlipidemia LDL goal <70 E78.5 [place] [id number] [place] [address] 15322- 7559 14 Nov, 2017 Hospital discharge follow-up Z09 ; Chest pain, unspecified type R07.9 ; Coronary artery disease involving [place] coronary artery of [place] heart with angina pectoris I25.119 and Gastroesophageal reflux disease without esophagitis K21.9 [place] [id number] [place] [address] 09793- 6480 Nov, PTSD (post-traumatic stress disorder) F43.10 and Moderate episode of recurrent major depressive disorder F33.1 [place] [id number] [place] [address] 18873- 8637 Oct, Type 2 diabetes mellitus with diabetic polyneuropathy E11.42 [facility] [id number] [place] [address] 31739- 7001 Oct, Diarrhea, unspecified type R19.7 ; Gastroesophageal reflux disease without esophagitis K21.9 and Vaginal discharge N89.8 [place] [id number] [place] [address] 49130- 1645 Oct, Type 2 diabetes mellitus with diabetic polyneuropathy E11.42 [place] [id number] [place] [address] 53185- 7618 Oct, Hyperlipidemia LDL goal <70 E78.5 [place] [address] [address]- 1720 Oct, Atherosclerotic heart disease of [place] coronary artery without angina pectoris I25.10 ; Coronary artery disease involving [place] heart with angina pectoris, unspecified vessel or lesion type I25.119 ; Type 2 diabetes mellitus with diabetic polyneuropathy E11.42 ; Hyperlipidemia LDL goal <70 E78.5 ; Cigarette smoker F17.210 and Post-traumatic stress reaction F43.10 [place] [id number] [place] [address] 49948- 5335 Oct, [place] [id number] [place] [address] 04920- 3185 Oct, Difficulty breathing R06.89 ; Hospital discharge follow-up Z09 and Bilateral lower extremity edema R60.0 [place] [id number] [place] [address] 43508- 9297 Oct, [facility] [id number] [place] [address] 03102 -9941 Oct, Dependent edema R60.9 [facility] [id number] [place] [address] 66399- 2900 Oct, [facility] [id number] [place] [address] 31979- 6705 Oct, [place] [address] [address]- 4705 Oct, Type 2 diabetes mellitus with diabetic polyneuropathy E11.42 [facility] [address], [place] [address]- 9768 Oct, [facility] [address], [place] [address]- 4684 Sep, [facility] [address], [place] [address]- 2142 August, [facility] [address], [place] [address]- 8778 Jul, [facility] [address], [place] [address]- 3280 Jul, Establishing care with new doctor, encounter for Z76.89 ; Type 2 diabetes mellitus with diabetic polyneuropathy E11.42 ; intermediate frame tender 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 Z79.4 ; Hyperlipidemia LDL goal <70 E78.5 ; Essential hypertension I10 and Chest pain, unspecified type R07.9 [facility] [address], [place] [address]- 9959 Jul, [facility] [address], [place] [address]- 8228 Jul, [facility] [address], [place] [address]- 7504 Jun, [facility] [address], [place] [address]- 0166 Jun, [facility] [id number] [address]- 1173 Jun, [facility] [address], [place] [address]- 2377 Jun, Acute hyperglycemia R73.9 ; Type 2 diabetes mellitus with diabetic polyneuropathy E11.42 ; intermediate frame tender 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 Z79.4 ; HTN, goal below 130/80 I10 and Hyperlipidemia LDL goal <70 E78.5 [facility] [address] [facility] [id number] [place] [address] August, [facility] [address] [facility] [id number] [address] August, [facility] [address] [facility] [id number] [place] [address] August, Acute vaginitis N76.0 ; Trichomonas vaginitis A59.01 and Vaginal discharge N89.8 IMMUNIZATIONS No Known Immunizations SOCIAL HISTORY Never Assessed REASON FOR VISIT SOCWK f/u PLAN OF CARE VITAL SIGNS MEDICATIONS Unknown Medications RESULTS No Results PROCEDURES No Known procedures INSTRUCTIONS MEDICATIONS ADMINISTERED No Known Medications MEDICAL (GENERAL) HISTORY Type Description Date Medical History Type 2 diabetes mellitus with diabetic polyneuropathy Medical History intermediate frame tender 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 Medical History [...]
--- OUTSIDE RECORDS SUMMARY | 2018-02-20 14:44 | XMS REPORT ---
Author Author HO CUBA Organization [facility] Address [address] [place] [address] Care Team Providers Care Optical Engineer Name Role Phone HO CUBA Unavailable PROBLEMS Type Condition ICD9-CM Code MKS29-DP Code Onset Dates Condition Status SNOMED Code Problem Cigarette smoker F17.210 Active 44084735 Problem Gastroesophageal reflux disease without esophagitis K21.9 Active 948431391 Problem Coronary artery disease involving [place] heart with angina pectoris, unspecified vessel or lesion type I25.119 Active 28666901 Problem Carpal tunnel syndrome on both sides G56.03 Active 22759833512377035 Problem 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 Active [id number] Problem Moderate episode of recurrent major depressive disorder F33.1 Active 937267167 Problem PTSD (post-traumatic stress disorder) F43.10 Active 54227562 Problem Restless leg syndrome G25.81 Active 38337595 Problem 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.119 Active 2370468230621 Problem Elevated BUN R79.9 Active 839492035 Problem PVC (premature ventricular contraction) I49.3 Active 71151304 Problem Hyperlipidemia LDL goal <70 E78.5 Active 37213806 Problem Chest pain, unspecified type R07.9 Active 33284252 Problem longterm 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 Z79.4 Active 880814133 Problem Essential hypertension I10 Active 02864759 Problem Type 2 diabetes mellitus with diabetic polyneuropathy E11.42 Active 21874939 Problem Atherosclerotic heart disease of [place] coronary artery without angina pectoris I25.10 Active [id number] ALLERGIES No Information ENCOUNTERS Encounter Location Date Diagnosis [facility] [address] [facility] [id number] [address] Mar, [facility] [id number], [place] [address] Feb, [facility] [address], [place] [address] Jan, [facility] [id number] [place] [address]12[address] 3814 Jan, Carpal tunnel syndrome on both sides G56.03 [facility] [id number] [place] [address] 38451- 1132 Jan, PTSD (post-traumatic stress disorder) F43.10 and Moderate episode of recurrent major depressive disorder F33.1 [facility] [id number] [place] [address] 88294- 7802 Jan, [facility] [id number] [place] [address] 38840- 8934 Jan, PTSD (post-traumatic stress disorder) F43.10 and Moderate episode of recurrent major depressive disorder F33.1 [facility] [id number] [place] [address] 88352- 6633 Jan, Type 2 diabetes mellitus with diabetic polyneuropathy E11.42 [facility] [id number] [place] [address] 45768- 1091 Jan, PTSD (post-traumatic stress disorder) F43.10 and Moderate episode of recurrent major depressive disorder F33.1 [facility] [address], [place] [address] Jan, PTSD (post-traumatic stress disorder) F43.10 and Moderate episode of recurrent major depressive disorder F33.1 [facility] [id number] [place] [address]45- 1095 Jan, [facility] [id number] [place] [address]29 [address]26[address] Jan, Pain of left hand M79.642 and Pain in right hand M79.641 [facility] [id number] [place] [address] 30429- 7145 Jan, [place] [id number] [place] [address] 47656- 5416 Dec, Bilateral hand numbness R20.0 [facility] [id number] [place] [address] 75281- 1049 Dec, PTSD (post-traumatic stress disorder) F43.10 and Moderate episode of recurrent major depressive disorder F33.1 [facility] [id number] [place] [address]79- 2007 24 Dec, 2017 Type 2 diabetes mellitus with diabetic polyneuropathy E11.42 [facility] [id number] [place] [address] 75327- 7168 Dec, [facility] [id number] [place] [address] 10755- 6003 Dec, Type 2 diabetes mellitus with diabetic polyneuropathy E11.42 and 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 [facility] [id number] [place] [address] 73522- 0752 Dec, Bilateral hand numbness R20.0 [facility] [id number] [place] [address] 23281- 8563 18 Dec, 2017 Moderate episode of recurrent major depressive disorder F33.1 ; Type 2 diabetes mellitus with diabetic polyneuropathy E11.42 ; longterm 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 Z79.4 ; Hyperlipidemia LDL goal <70 E78.5 ; Chest pain, unspecified type R07.9 ; Atherosclerotic heart disease of [place] coronary artery without angina pectoris I25.10 ; Cigarette smoker F17.210 ; Gastroesophageal reflux disease without esophagitis K21.9 and Restless leg syndrome G25.81 [facility] [id number] [place] [address] 40369- 0115 18 Dec, 2017 PTSD (post-traumatic stress disorder) F43.10 and Moderate episode of recurrent major depressive disorder F33.1 [facility] [id number] [place] [address] 02826- 5734 11 Dec, 2017 Moderate episode of recurrent major depressive disorder F33.1 [place] [id number] [place] [address] 82159- 8935 Dec, [facility] [id number] [place] [address] 51960- 7070 Dec, [facility] [id number] [place] [address] 13233- 3967 Dec, Uncontrolled type 2 diabetes mellitus with hyperglycemia E11.65 and Flatulence/gas pain/belching R14.0 [facility] [id number] [place] [address] 13841- 3695 Nov, [place] [address] [address] Nov, PTSD (post-traumatic stress disorder) F43.10 and Moderate episode of recurrent major depressive disorder F33.[address] [address]- [address] Nov, Chest pain, unspecified type R07.9 ; 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.119 ; Restless leg syndrome G25.81 ; Hospital discharge follow-up Z09 and Type 2 diabetes mellitus with diabetic polyneuropathy E11.42 [facility] [id number] [place] [address] 79061- 2933 20 Nov, 2017 Hyperlipidemia LDL goal <70 E78.5 [id number] [place] [address] 22268- 5367 14 Nov, 2017 Hospital discharge follow-up Z09 ; Chest pain, unspecified type R07.9 ; 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.119 and Gastroesophageal reflux disease without esophagitis K21.9 [facility] [id number] [place] [address] 75079- 4548 Nov, PTSD (post-traumatic stress disorder) F43.10 and Moderate episode of recurrent major depressive disorder F33.1 [facility] [id number] [place] [address] 92712- 2191 Oct, Type 2 diabetes mellitus with diabetic polyneuropathy E11.42 [facility] [id number] [place] [address] 71460- 8072 Oct, Diarrhea, unspecified type R19.7 ; Gastroesophageal reflux disease without esophagitis K21.9 and Vaginal discharge N89.8 [facility] [id number] [place] [address] 11636- 5606 Oct, Type 2 diabetes mellitus with diabetic polyneuropathy E11.42 [facility] [id number] [place] [address] 02912- 4048 Oct, Hyperlipidemia LDL goal <70 E78.5 [place] [address] [address]359- 4774 Oct, Atherosclerotic heart disease of [place] coronary artery without angina pectoris I25.10 ; Coronary artery disease involving [place] heart with angina pectoris, unspecified vessel or lesion type I25.119 ; Type 2 diabetes mellitus with diabetic polyneuropathy E11.42 ; Hyperlipidemia LDL goal <70 E78.5 ; Cigarette smoker F17.210 and Post-traumatic stress reaction F43.10 [facility] [id number] [place] [address] 75409- 8864 Oct, [facility] [id number] [place] [address] 48341- 9289 Oct, Difficulty breathing R06.89 ; Hospital discharge follow-up Z09 and Bilateral lower extremity edema R60.0 [facility] [id number] [place] [address] 51816- 4318 Oct, [facility] [id number] [place] [address] 50684 -8756 Oct, Dependent edema R60.9 [facility] [id number] [place] [address] 70969- 7420 Oct, [place] [id number] [place] [address] 34676- 8744 Oct, [place] [address], [place] [address] Oct, Type 2 diabetes mellitus with diabetic polyneuropathy E11.42 [facility] [address], [place] [address] Oct, [facility] [address] [address] Sep, [facility] [address], [place] [address] August, [facility] [address], [place] [address] Jul, [facility] [address], [place] [address] Jul, Establishing care with new doctor, encounter for Z76.89 ; Type 2 diabetes mellitus with diabetic polyneuropathy E11.42 ; 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 ; Hyperlipidemia LDL goal <70 E78.5 ; Essential hypertension I10 and Chest pain, unspecified type R07.9 [facility] [address], [place] [address] Jul, [facility] [address] [place] [address] Jul, [facility] [id number] [address] Jun, [facility] [id number] [address] Jun, [facility] [id number] [address] Jun, [facility] [address], [place] [address] Jun, Acute hyperglycemia R73.9 ; Type 2 diabetes mellitus with diabetic polyneuropathy E11.42 ; longterm 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 Z79.4 ; HTN, goal below 130/80 I10 and Hyperlipidemia LDL goal <70 E78.5 [facility] [address] [facility] [id number] [place] [address] August, [facility] [address] [facility] [id number] [place] [address] August, [facility] [address] [facility] [id number] [address] August, Acute vaginitis N76.0 ; Trichomonas vaginitis A59.01 and Vaginal discharge N89.8 IMMUNIZATIONS No Known Immunizations SOCIAL HISTORY Never Assessed REASON FOR VISIT f/u mood PLAN OF CARE Activity Details Follow Up Next available Reason: VITAL SIGNS MEDICATIONS Medication Instructions Dosage Frequency Start Date End Date Duration Status Aspirin 81 81 MG Orally Once a day 1 tablet 24h Jan, 30 days Unknown Atorvastatin Calcium 80 MG Orally Once a day 1 tablet 24h 30 days Unknown Plavix 75 MG Orally Once a day 1 tablet 24h Oct, 30 days Unknown Blood Glucose Test Strip test strips One Touch Verio strip and Delica lancet 3 times a day test blood sugar 8h Jun, 30 days Unknown Victoza 18 MG/3ML Subcutaneous daily 1.8 mg 24h Dec, Unknown Amitriptyline HCl 25 MG Orally Once a day at bedtime 1 tablet Nov, Unknown Blood Glucose Monitor System w/Device as directed Jun, Unknown Levemir FlexTouch 100 UNIT/ML Subcutaneous 2 times a day 15 Units 12h Unknown Gabapentin 300 MG Orally Three times a day 1 capsule 8h 30 Unknown Zoloft 100 mg Orally Once a day 1.5 tablets 24h Nov, Unknown Metformin HCl 1000 MG Orally Twice a day 1 tablet with meals 12h 30 days Unknown Pen [place] 31G X 6 MM Unknown Ranolazine ER 500 mg Orally Twice a day 1 tablet 12h 20 Nov, 2017 30 day(s) Unknown Lisinopril 5 mg Orally Once a day 1 tablet 24h Jul, 30 day(s) Unknown Isosorbide Mononitrate ER 30 MG Orally Once a day 1 tablet in the morning 24h Nov, 30 day(s) Unknown Humalog KwikPen 100 UNIT/ML Subcutaneous 3 times a day before meals Inject 15 Units with meals Unknown Pantoprazole Sodium 40 mg Orally Once a day 1 tablet 24h Nov, 30 day(s) Unknown RESULTS No Results PROCEDURES Procedure Date Ordered Result Body Site Psychotherapy, patient &/family, 30 minutes, established patient 2018 INSTRUCTIONS MEDICATIONS ADMINISTERED No Known Medications MEDICAL (GENERAL) HISTORY Type Description Date Medical History Type 2 diabetes mellitus with diabetic polyneuropathy Medical History lobsterman 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
--- OUTSIDE RECORDS SUMMARY | 2018-02-20 14:45 | XMS REPORT ---
Author Author HANG FELIPE [facility] Address [address] [place] [address] Care Team Providers Care Mobile Lab Technician Name Role Phone HANG FELIPE Unavailable PROBLEMS Type Condition ICD9-CM Code UWT70-AV Code Onset Dates Condition Status SNOMED Code Problem Cigarette smoker F17.210 Active 86148193 Problem Gastroesophageal reflux disease without esophagitis K21.9 Active 863738734 Problem Coronary artery disease involving [place] heart with angina pectoris, unspecified vessel or lesion type I25.119 Active 71258419 Problem Carpal tunnel syndrome on both sides G56.03 Active [id number] Problem 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 Active [id number] Problem Moderate episode of recurrent major depressive disorder F33.1 Active 553156312 Problem PTSD (post-traumatic stress disorder) F43.10 Active 33773348 Problem Restless leg syndrome G25.81 Active 14878126 Problem Coronary artery disease 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 I25.119 Active 4362884569419 Problem Elevated BUN R79.9 Active 249626939 Problem PVC (premature ventricular contraction) I49.3 Active 46265389 Problem Hyperlipidemia LDL goal <70 E78.5 Active 40845202 Problem Chest pain, unspecified type R07.9 Active 44312208 Problem 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 Active 207235106 Problem Essential hypertension I10 Active 64602655 Problem Type 2 diabetes mellitus with diabetic polyneuropathy E11.42 Active 72434074 Problem Atherosclerotic heart disease of [place] coronary artery without angina pectoris I25.10 Active [id number] ALLERGIES No Information ENCOUNTERS Encounter Location Date Diagnosis [facility] [address] [facility] [id number] [address] Mar, [facility] [address] [id number] [address] Feb, [facility] [address] [address] Jan, [facility] [id number] [place] [address] 40154- 1904 Jan, Carpal tunnel syndrome on both sides G56.03 [facility] [address] [place] [address] 80121- 6459 Jan, PTSD (post-traumatic stress disorder) F43.10 and Moderate episode of recurrent major depressive disorder F33.1 [facility] [address] [address] Jan, [place] [id number] [place] [address] 47165- 8741 Jan, PTSD (post-traumatic stress disorder) F43.10 and Moderate episode of recurrent major depressive disorder F33.1 [place] [id number] [place] [address] 94324- 0844 Jan, Type 2 diabetes mellitus with diabetic polyneuropathy E11.42 [facility] [id number] [place] [address] 16587- 4601 Jan, PTSD (post-traumatic stress disorder) F43.10 and Moderate episode of recurrent major depressive disorder F33.1 [facility] [address] [address] Jan, PTSD (post-traumatic stress disorder) F43.10 and Moderate episode of recurrent major depressive disorder F33.1 [facility] [address] [address] Jan, [facility] [id number] [place] [address] 21514 -8165 Jan, Pain of left hand M79.642 and Pain in right hand M79.641 [facility] [address] [address] Jan, [facility] [address] [place] [address] 37191- 1949 Dec, Bilateral hand numbness R20.0 [place] [id number] [place] [address] 47882- 7222 Dec, PTSD (post-traumatic stress disorder) F43.10 and Moderate episode of recurrent major depressive disorder F33.1 [place] [id number] [place] [address] 50509- 3655 24 Dec, 2017 Type 2 diabetes mellitus with diabetic polyneuropathy E11.42 [place] [id number] [place] [address] 34666- 7767 Dec, [place] [id number] [place] [address] 96290- 8481 Dec, Type 2 diabetes mellitus with diabetic polyneuropathy E11.42 and 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 [place] [id number] [place] [address] 06712- 2195 Dec, Bilateral hand numbness R20.0 [place] [id number] [place] [address] 87784- 3430 18 Dec, 2017 Moderate episode of recurrent major depressive disorder F33.1 ; Type 2 diabetes mellitus with diabetic polyneuropathy E11.42 ; FDC 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 Z79.4 ; Hyperlipidemia LDL goal <70 E78.5 ; Chest pain, unspecified type R07.9 ; Atherosclerotic heart disease of [place] coronary artery without angina pectoris I25.10 ; Cigarette smoker F17.210 ; Gastroesophageal reflux disease without esophagitis K21.9 and Restless leg syndrome G25.81 [place] [id number] [place] [address] 38368- 2960 18 Dec, 2017 PTSD (post-traumatic stress disorder) F43.10 and Moderate episode of recurrent major depressive disorder F33.1 [place] [id number] [place] [address] 44161- 7493 11 Dec, 2017 Moderate episode of recurrent major depressive disorder F33.1 [place] [address] [place] [address] 59681- 4707 Dec, [place] [id number] [place] [address] 64416- 3699 Dec, [place] [id number] [place] [address] 46111- 9081 Dec, Uncontrolled type 2 diabetes mellitus with hyperglycemia E11.65 and Flatulence/gas pain/belching R14.0 [place] [id number] [place] [address] 81650- 9190 Nov, [place] [id number] [place] [address] 86922- 4640 Nov, PTSD (post-traumatic stress disorder) F43.10 and Moderate episode of recurrent major depressive disorder F33.[address] [address]- [address] Nov, Chest pain, unspecified type R07.9 ; Coronary artery disease 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 I25.119 ; Restless leg syndrome G25.81 ; Hospital discharge follow-up Z09 and Type 2 diabetes mellitus with diabetic polyneuropathy E11.42 [place] [id number] [place] [address] 92813- 2085 Nov, Hyperlipidemia LDL goal <70 E78.5 [place] [id number] [place] [address] 16592- 4551 14 Nov, 2017 Hospital discharge follow-up Z09 ; Chest pain, unspecified type R07.9 ; Coronary artery disease 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 I25.119 and Gastroesophageal reflux disease without esophagitis K21.9 [place] [id number] [place] [address] 45876- 5723 Nov, PTSD (post-traumatic stress disorder) F43.10 and Moderate episode of recurrent major depressive disorder F33.1 [place] [id number] [place] [address] 51794- 9062 Oct, Type 2 diabetes mellitus with diabetic polyneuropathy E11.42 [facility] [id number] [place] [address] 44417- 7832 Oct, Diarrhea, unspecified type R19.7 ; Gastroesophageal reflux disease without esophagitis K21.9 and Vaginal discharge N89.8 [place] [id number] [place] [address] 53881- 6179 Oct, Type 2 diabetes mellitus with diabetic polyneuropathy E11.42 [place] [id number] [place] [address] 92599- 4444 Oct, Hyperlipidemia LDL goal <70 E78.5 [place] [address] 67441- 1241 Oct, Atherosclerotic heart disease of [place] coronary artery without angina pectoris I25.10 ; Coronary artery disease involving [place] heart with angina pectoris, unspecified vessel or lesion type I25.119 ; Type 2 diabetes mellitus with diabetic polyneuropathy E11.42 ; Hyperlipidemia LDL goal <70 E78.5 ; Cigarette smoker F17.210 and Post-traumatic stress reaction F43.10 [place] [id number] [place] [address] 13188- 3521 Oct, [place] [id number] [place] [address] 86821- 9523 Oct, Difficulty breathing R06.89 ; Hospital discharge follow-up Z09 and Bilateral lower extremity edema R60.0 [place] [id number] [place] [address] 36945- 4541 Oct, [facility] [id number] [place] [address] 33179 -9389 Oct, Dependent edema R60.9 [facility] [id number] [place] [address] 82022- 1608 Oct, [facility] [id number] [place] [address] 38078- 3620 Oct, [place] [address] [place] [address]- 2545 Oct, Type 2 diabetes mellitus with diabetic polyneuropathy E11.42 [facility] [address] [address] 1159 Oct, [facility] [address] [address]- 6534 Sep, [facility] [address] [address]- 8510 August, [facility] [address] [address]- 4799 Jul, [facility] [address] [address]- 4266 Jul, Establishing care with new doctor, encounter for Z76.89 ; Type 2 diabetes mellitus with diabetic polyneuropathy E11.42 ; 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 ; Hyperlipidemia LDL goal <70 E78.5 ; Essential hypertension I10 and Chest pain, unspecified type R07.9 [facility] [address] [address]- 4953 Jul, [facility] [address] [address]- 5538 Jul, [facility] [address] [address]- 4414 Jun, [facility] [address] [address]- 9753 Jun, [facility] [id number] [address]- 5146 Jun, [facility] [address] [address]- 8985 Jun, Acute hyperglycemia R73.9 ; Type 2 diabetes mellitus with diabetic polyneuropathy E11.42 ; 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 ; HTN, goal below 130/80 I10 and Hyperlipidemia LDL goal <70 E78.5 [facility] [address] [facility] [id number] [place] [address] August, [facility] [address] [facility] [id number] [address] August, [facility] [address] [facility] [id number] [place] [address] August, Acute vaginitis N76.0 ; Trichomonas vaginitis A59.01 and Vaginal discharge N89.8 IMMUNIZATIONS No Known Immunizations SOCIAL HISTORY Never Assessed REASON FOR VISIT SOCWK-IN PLAN OF CARE VITAL SIGNS MEDICATIONS Unknown Medications RESULTS No Results PROCEDURES No Known procedures INSTRUCTIONS MEDICATIONS ADMINISTERED No Known Medications MEDICAL (GENERAL) HISTORY Type Description Date Medical History Type 2 diabetes mellitus with diabetic polyneuropathy Medical History 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
--- OUTSIDE RECORDS SUMMARY | 2018-02-20 14:45 | XMS REPORT ---
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 Active 74765752509975923 Problem Restless leg syndrome G25.81 Active 70984922 Problem PTSD (post-traumatic stress disorder) F43.10 Active 94545493 Problem Gastroesophageal reflux disease without esophagitis K21.9 Active 344722638 Problem 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.119 Active 8592235672203 Problem Moderate episode of recurrent major depressive disorder F33.1 Active 843070288 Problem Elevated BUN R79.9 Active 083463409 Problem Type 2 diabetes mellitus with diabetic polyneuropathy E11.42 Active 71165330 Problem Hyperlipidemia LDL goal <70 E78.5 Active 25778757 Problem PVC (premature ventricular contraction) I49.3 Active 03482051 Problem Chest pain, unspecified type R07.9 Active 60076290 Problem FPC 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 Z79.4 Active 618976985 Problem Essential hypertension I10 Active 34905403 ALLERGIES No Information ENCOUNTERS Encounter Location Date Diagnosis [facility] [id number], [place] [address] Jan, [facility] [id number], [place] [address]- 8042 Jan, [facility] [address] [place] [address] 69900- 6766 Jan, [facility] [address] [place] [address] 51055- 2085 Jan, PTSD (post-traumatic stress disorder) F43.10 and Moderate episode of recurrent major depressive disorder F33.1 [facility] [address] [place] [address] 12057- 3154 Jan, [facility] [id number] [place] [address] 04122 -6540 Jan, Pain of left hand M79.642 and Pain in right hand M79.641 [facility] [id number] [place] [address] 14758- 0431 Jan, [facility] [address] [place] [address] 44239- 6288 Dec, Bilateral hand numbness R20.0 [place] [id number] [place] [address] 47004- 1300 Dec, PTSD (post-traumatic stress disorder) F43.10 and Moderate episode of recurrent major depressive disorder F33.1 [facility] [address] [place] [address] 43114- 1298 Dec, Type 2 diabetes mellitus with diabetic polyneuropathy E11.42 [place] [address] [place] [address] 69330- 3204 Dec, [facility] [id number] [place] [address] 70955- 4165 Dec, Type 2 diabetes mellitus with diabetic polyneuropathy E11.42 and 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 [place] [address] [place] [address] 22632- 6983 Dec, Bilateral hand numbness R20.0 [facility] [address] [place] [address] 85750- 0716 Dec, Moderate episode of recurrent major depressive disorder F33.1 ; Type 2 diabetes mellitus with diabetic polyneuropathy E11.42 ; FPC 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 Z79.4 ; Hyperlipidemia LDL goal <70 E78.5 ; Chest pain, unspecified type R07.9 ; Atherosclerotic heart disease of [place] coronary artery without angina pectoris I25.10 ; Cigarette smoker F17.210 ; Gastroesophageal reflux disease without esophagitis K21.9 and Restless leg syndrome G25.81 [place] [id number] [place] [address] 43735- 6198 18 Dec, 2017 PTSD (post-traumatic stress disorder) F43.10 and Moderate episode of recurrent major depressive disorder F33.1 [place] [address] [address]46- 4825 Dec, Moderate episode of recurrent major depressive disorder F33.1 [place] [address] 46753- 6437 Dec, [place] [address] 20282- 6605 Dec, [place] [id number] [place] [address] 43059- 3812 Dec, Uncontrolled type 2 diabetes mellitus with hyperglycemia E11.65 and Flatulence/gas pain/belching R14.0 [place] [id number] [place] [address] 91194- 4701 Nov, [place] [id number] [place] [address] 52113- 1517 Nov, PTSD (post-traumatic stress disorder) F43.10 and Moderate episode of recurrent major depressive disorder F33.1 [place] [id number] [place] [address] 20328- 7406 Nov, Chest pain, unspecified type R07.9 ; 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.119 ; Restless leg syndrome G25.81 ; Hospital discharge follow-up Z09 and Type 2 diabetes mellitus with diabetic polyneuropathy E11.42 [place] [address] 00771- 2927 Nov, Hyperlipidemia LDL goal <70 E78.5 [place] [address] 57210- 3220 Nov, Hospital discharge follow-up Z09 ; Chest pain, unspecified type R07.9 ; 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.119 and Gastroesophageal reflux disease without esophagitis K21.9 [place] [address] 98417- 3912 Nov, PTSD (post-traumatic stress disorder) F43.10 and Moderate episode of recurrent major depressive disorder F33.1 [place] [address] 12863- 4475 Oct, Type 2 diabetes mellitus with diabetic polyneuropathy E11.42 [place] [address] 56039- 4478 Oct, Diarrhea, unspecified type R19.7 ; Gastroesophageal reflux disease without esophagitis K21.9 and Vaginal discharge N89.8 [place] [address] 42922- 0844 Oct, Type 2 diabetes mellitus with diabetic polyneuropathy E11.42 [place] [address] 45809- 2655 Oct, Hyperlipidemia LDL goal <70 E78.5 [place] [address] 21637- 8052 Oct, Atherosclerotic heart disease of [place] coronary artery without angina pectoris I25.10 ; Coronary artery disease involving [place] heart with angina pectoris, unspecified vessel or lesion type I25.119 ; Type 2 diabetes mellitus with diabetic polyneuropathy E11.42 ; Hyperlipidemia LDL goal <70 E78.5 ; Cigarette smoker F17.210 and Post-traumatic stress reaction F43.10 [place] [address] 82225- 3149 Oct, [place] [address], [place] [address]- 2143 Oct, Difficulty breathing R06.89 ; Hospital discharge follow-up Z09 and Bilateral lower extremity edema R60.0 [facility] [id number] [place] [address] 72269- 7578 Oct, [facility] [id number] [place] [address] 93025 -6535 Oct, Dependent edema R60.9 [facility] [id number] [place] [address] 76029- 1457 Oct, [facility] [id number] [place] [address] 23154- 6533 Oct, [facility] [id number] [place] [address] 67211- 0001 Oct, Type 2 diabetes mellitus with diabetic polyneuropathy E11.42 [facility] [id number] [place] [address] 51709- 8016 Oct, [facility] [id number] [place] [address] 62567- 2325 Sep, [facility] [id number] [place] [address] 16491- 9464 August, [facility] [id number] [place] [address] 69157- 3578 Jul, [facility] [id number] [place] [address] 60226- 5719 Jul, Establishing care with new doctor, encounter for Z76.89 ; Type 2 diabetes mellitus with diabetic polyneuropathy E11.42 ; FPC 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 Z79.4 ; Hyperlipidemia LDL goal <70 E78.5 ; Essential hypertension I10 and Chest pain, unspecified type R07.9 [facility] [address] [place] [address] 53418- 4446 Jul, [facility] [id number] [place] [address] 57536- 8863 Jul, [facility] [id number] [address] [address]63 Jun, [facility] [address] 0[address] Jun, [facility] [address], [place] [address]- 4379 Jun, [facility] [address] [place] [address] 00066- 5411 Jun, Acute hyperglycemia R73.9 ; Type 2 diabetes mellitus with diabetic polyneuropathy E11.42 ; 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
--- OUTSIDE RECORDS SUMMARY | 2018-02-20 14:45 | XMS REPORT ---
Author Author LAI BACA [facility] Address [address] [place] [address] Care Team Providers Care Insurance Underwriter Sales Name Role Phone LAI BACA Unavailable PROBLEMS Type Condition ICD9-CM Code ARY61-NV Code Onset Dates Condition Status SNOMED Code Problem Atherosclerotic heart disease of [place] coronary artery without angina pectoris I25.10 Active 315889969 Problem Coronary artery disease involving [place] heart with angina pectoris, unspecified vessel or lesion type I25.119 Active 56695273 Problem Cigarette smoker F17.210 Active 73331042 Problem Atherosclerotic heart disease of [place] coronary artery with unstable angina pectoris I25.110 Active 48613155484178503 Problem Restless leg syndrome G25.81 Active 55078492 Problem PTSD (post-traumatic stress disorder) F43.10 Active 78493197 Problem Gastroesophageal reflux disease without esophagitis K21.9 Active 532975492 Problem Coronary artery disease involving [place] coronary artery of [place] heart with angina pectoris I25.119 Active 7807786942668 Problem Moderate episode of recurrent major depressive disorder F33.1 Active 569065486 Problem Elevated BUN R79.9 Active 496805257 Problem Type 2 diabetes mellitus with diabetic polyneuropathy E11.42 Active 18466541 Problem Hyperlipidemia LDL goal <70 E78.5 Active 32873161 Problem PVC (premature ventricular contraction) I49.3 Active 39407111 Problem Chest pain, unspecified type R07.9 Active 68499871 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 Active 899551507 Problem Essential hypertension I10 Active 66080542 ALLERGIES Substance Reaction Event Type Date Status Adhesive Bandages Unknown Drug Allergy Jan, Active Toradol Unknown Non Drug Allergy Jan, Active ENCOUNTERS Encounter Location Date Diagnosis [facility] [address] [facility] [id number] [address] Jan, [facility] [address], [place] [address] Jan, [facility] [id number] [place] [address] 23371- 1427 Jan, [facility] [id number] [place] [address] 19069- 4691 Jan, PTSD (post-traumatic stress disorder) F43.10 and Moderate episode of recurrent major depressive disorder F33.1 [facility] [id number] [place] [address] 15919- 0780 Jan, [facility] [address] [place] [address] 48002 -1265 Jan, Pain of left hand M79.642 and Pain in right hand M79.641 [facility] [id number] [place] [address] 31414- 0340 Jan, [facility] [id number] [place] [address] 71600- 8714 Dec, Bilateral hand numbness R20.0 [facility] [id number] [place] [address] 09582- 6497 Dec, PTSD (post-traumatic stress disorder) F43.10 and Moderate episode of recurrent major depressive disorder F33.1 [facility] [address] [place] [address] 23053- 5400 24 Dec, 2017 Type 2 diabetes mellitus with diabetic polyneuropathy E11.42 [facility] [id number] [place] [address] 04699- 9103 Dec, [facility] [address] [place] [address] 30127- 9593 Dec, Type 2 diabetes mellitus with diabetic polyneuropathy E11.42 and Atherosclerotic heart disease of [place] coronary artery with unstable angina pectoris I25.110 [facility] [address] [place] [address] 93869- 4477 18 Dec, 2017 Bilateral hand numbness R20.0 [facility] [facility] [address] [address] 7[address] 18 Dec, 2017 Moderate episode of recurrent major depressive disorder F33.1 ; Type 2 diabetes mellitus with diabetic polyneuropathy E11.42 ; [facility] 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 Z79.4 ; Hyperlipidemia LDL goal <70 E78.5 ; Chest pain, unspecified type R07.9 ; Atherosclerotic heart disease of [place] coronary artery without angina pectoris I25.10 ; Cigarette smoker F17.210 ; Gastroesophageal reflux disease without esophagitis K21.9 and Restless leg syndrome G25.81 [place] [facility] [id number] [place] [address] 09396- 4357 Dec, PTSD (post-traumatic stress disorder) F43.10 and Moderate episode of recurrent major depressive disorder F33.1 [facility] [id number] [place] [address] 73291- 6447 Dec, Moderate episode of recurrent major depressive disorder F33.1 [facility] [facility] [id number] [place] [address] 05922- 3417 Dec, [place] [id number] [place] [address] 08481- 2478 Dec, [place] [id number] [place] [address] 36067- 4042 Dec, Uncontrolled type 2 diabetes mellitus with hyperglycemia E11.65 and Flatulence/gas pain/belching R14.0 [place] [facility] [id number] [place] [address] 89229- 3052 Nov, [place] [id number] [place] [address] 08376- 2403 Nov, PTSD (post-traumatic stress disorder) F43.10 and Moderate episode of recurrent major depressive disorder F33.1 [facility] [id number] [place] [address] 53346- 5020 Nov, Chest pain, unspecified type R07.9 ; Coronary artery disease involving [place] coronary artery of [place] heart with angina pectoris I25.119 ; Restless leg syndrome G25.81 ; Hospital discharge follow-up Z09 and Type 2 diabetes mellitus with diabetic polyneuropathy E11.42 [facility] [id number] [place] [address] 82646- 9518 Nov, Hyperlipidemia LDL goal <70 E78.5 [facility] [facility] [id number] [place] [address] 75171- 3861 14 Nov, 2017 Hospital discharge follow-up Z09 ; Chest pain, unspecified type R07.9 ; Coronary artery disease involving [place] coronary artery of [place] heart with angina pectoris I25.119 and Gastroesophageal reflux disease without esophagitis K21.9 [facility] [id number] [place] [address] 61187- 5875 Nov, PTSD (post-traumatic stress disorder) F43.10 and Moderate episode of recurrent major depressive disorder F33.1 [place] [id number] [place] [address] 77681- 6545 Oct, Type 2 diabetes mellitus with diabetic polyneuropathy E11.42 [facility] [facility] [id number] [place] [address] 79611- 5330 Oct, Diarrhea, unspecified type R19.7 ; Gastroesophageal reflux disease without esophagitis K21.9 and Vaginal discharge N89.8 [facility] [facility] [id number] [place] [address] 25733- 6253 Oct, Type 2 diabetes mellitus with diabetic polyneuropathy E11.42 [facility] [id number] [place] [address] 46152- 6847 Oct, Hyperlipidemia LDL goal <70 E78.5 [facility] [facility] [id number] [place] [address] 78397- 2231 Oct, Atherosclerotic heart disease of [place] coronary artery without angina pectoris I25.10 ; Coronary artery disease involving [place] heart with angina pectoris, unspecified vessel or lesion type I25.119 ; Type 2 diabetes mellitus with diabetic polyneuropathy E11.42 ; Hyperlipidemia LDL goal <70 E78.5 ; Cigarette smoker F17.210 and Post-traumatic stress reaction F43.10 [facility] [address] [place] [address] 16 Oct, 2017 [facility] [id number] [place] [address] 36921- 0304 Oct, Difficulty breathing R06.89 ; Hospital discharge follow-up Z09 and Bilateral lower extremity edema R60.0 [facility] [id number] [place] [address] 14099- 4869 Oct, [facility] [id number] [place] [address] 53812 -9108 Oct, Dependent edema R60.9 [facility] [id number] [place] [address] 45948- 2693 Oct, [facility] [id number] [place] [address] 22266- 0966 Oct, [facility] [id number] [place] [address] 37565- 4916 Oct, Type 2 diabetes mellitus with diabetic polyneuropathy E11.42 [facility] [id number] [place] [address] 64293- 2176 Oct, [facility] [id number] [place] [address] 81518- 0822 Sep, [facility] [id number] [place] [address] 07118- 4296 August, [facility] [id number] [place] [address] 56243- 3215 Jul, [facility] [address], [place] [address] 6459 Jul, Establishing care with new doctor, encounter for Z76.89 ; Type 2 diabetes mellitus with diabetic polyneuropathy E11.42 ; [facility] 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 Z79.4 ; Hyperlipidemia LDL goal <70 E78.5 ; Essential hypertension I10 and Chest pain, unspecified type R07.9 [facility] [address] [address] 8171 Jul, [facility] [id number] [place] [address] 77166- 4201 Jul, [facility] [id number] [place] [address] 12416- 2621 Jun, [facility] [id number] [place] [address] 13118- 7357 Jun, [facility] [id number] [place] [address] 23749- 7144 Jun, [facility] [id number] [place] [address] 95563- 8745 Jun, Acute hyperglycemia R73.9 ; Type 2 diabetes mellitus with diabetic polyneuropathy E11.42 ; 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 ; HTN, goal below 130/80 I10 and Hyperlipidemia LDL goal <70 E78.5 [facility] [id number] [place] [address] 38153 -9232 August, [facility] [id number] [place] [address] 73222 -9761 August, [facility] [place] [id number] [place] [address] 09305 -5657 August, Acute vaginitis N76.0 ; Trichomonas vaginitis A59.01 and Vaginal discharge N89.8 IMMUNIZATIONS No Known Immunizations SOCIAL HISTORY Never Assessed REASON FOR VISIT pain in arms and hands-makaylaRMA, PT complaining of alejo in both hands with shooting pain up both of her arms, started a couple of days ago , LMP 01/18/2018 PLAN OF CARE Activity Details Follow Up prn Reason: VITAL SIGNS Height 62 in 2018-01-18 Weight 149.8 lbs 2018-01-18 Temperature 98.4 degrees Fahrenheit 2018-01-18 Heart Rate 105 bpm 2018-01-18 Respiratory Rate 18 2018-01-18 Oximetry on room air:97 % 2018-01-18 BMI 27.40 kg/m2 2018-01-18 Blood pressure systolic 120 mmHg 2018-01-18 Blood pressure diastolic 98 mmHg 2018-01-18 MEDICATIONS Medication Instructions Dosage Frequency Start Date End Date Duration Status Pen [place] 31G X 6 MM Active Ranolazine ER 500 mg Orally Twice a day 1 tablet 12h Nov, 30 day(s) Active Humalog KwikPen 100 UNIT/ML Subcutaneous 3 times a day before meals Inject 15 Units with meals Active Metformin HCl 1000 MG Orally Twice a day 1 tablet with meals 12h 30 days Active Plavix 75 MG Orally Once a day 1 tablet 24h Oct, 30 days Active Isosorbide Mononitrate ER 30 MG Orally Once a day 1 tablet in the morning 24h Nov, 30 day(s) Active Amitriptyline HCl 25 MG Orally Once a day at bedtime 1 tablet Nov, Active Levemir FlexTouch 100 UNIT/ML Subcutaneous 2 times a day 15 Units 12h Active Blood Glucose Test Strip test strips One Touch Verio strip and Delica lancet 3 times a day test blood sugar 8h Jun, 30 days Active Lisinopril 5 mg Orally Once a day 1 tablet 24h Jul, 30 day(s) Active Atorvastatin Calcium 80 MG Orally Once a day 1 tablet 24h 30 days Active Gabapentin 100 mg Orally Three times a day 1 capsule 8h Dec, 30 day(s) Active Zoloft 100 mg Orally Once a day 1.5 tablets 24h Nov, 30 days Active Lasix 20 mg Orally Once a day 1 tablet 24h Oct, 3 days Active Pantoprazole Sodium 40 mg Orally Once a day 1 tablet 24h Nov, 30 day(s) Active Aspirin 81 81 MG Orally Once a day 1 tablet 24h Jan, 30 days Active Blood Glucose Monitor System w/Device as directed Jun, Active Victoza 18 MG/3ML Subcutaneous daily 1.8 mg 24h Dec, Active RESULTS No Results PROCEDURES No Known procedures INSTRUCTIONS MEDICATIONS ADMINISTERED No Known Medications MEDICAL (GENERAL) HISTORY Type Description Date Medical History Type 2 diabetes mellitus with diabetic polyneuropathy Medical History [facility] 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
--- OUTSIDE RECORDS SUMMARY | 2018-02-20 14:45 | XMS REPORT ---
Author Author NEW LE Organization [facility] Address [address] [place] [address] Care Team Providers Care Sexton Helper Name Role Phone NEW LE Unavailable PROBLEMS Type Condition ICD9-CM Code DLD34-WT Code Onset Dates Condition Status SNOMED Code Problem Atherosclerotic heart disease of [place] coronary artery without angina pectoris I25.10 Active 244638559 Problem Coronary artery disease involving [place] heart with angina pectoris, unspecified vessel or lesion type I25.119 Active 73644555 Problem Cigarette smoker F17.210 Active 78148847 Problem Atherosclerotic heart disease of [place] coronary artery with unstable angina pectoris I25.110 Active 81254380185816508 Problem Restless leg syndrome G25.81 Active 95549989 Problem PTSD (post-traumatic stress disorder) F43.10 Active 64870653 Problem Gastroesophageal reflux disease without esophagitis K21.9 Active 677654018 Problem Coronary artery disease involving [place] coronary artery of [place] heart with angina pectoris I25.119 Active 0285774377304 Problem Moderate episode of recurrent major depressive disorder F33.1 Active 275013155 Problem Elevated BUN R79.9 Active 056897225 Problem Type 2 diabetes mellitus with diabetic polyneuropathy E11.42 Active 08655349 Problem Hyperlipidemia LDL goal <70 E78.5 Active 55044361 Problem PVC (premature ventricular contraction) I49.3 Active 15399736 Problem Chest pain, unspecified type R07.9 Active 68826308 Problem [facility] 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 Z79.4 Active 190958746 Problem Essential hypertension I10 Active 60651951 ALLERGIES No Information ENCOUNTERS Encounter Location Date Diagnosis [facility] [id number] [address] Jan, [facility] [id number] [address]- 7447 Jan, [facility] [address] [place] [address] 27402- 2140 Jan, [facility] [address] [place] [address] 23988- 9658 Jan, PTSD (post-traumatic stress disorder) F43.10 and Moderate episode of recurrent major depressive disorder F33.1 [facility] [address] [place] [address] 89748- 8303 Jan, [facility] [id number] [place] [address] 01805 -3060 Jan, Pain of left hand M79.642 and Pain in right hand M79.641 [facility] [id number] [place] [address] 38683- 3273 Jan, [facility] [address] [place] [address] 45548- 7184 Dec, Bilateral hand numbness R20.0 [place] [facility] [id number] [place] [address] 75574- 1071 Dec, PTSD (post-traumatic stress disorder) F43.10 and Moderate episode of recurrent major depressive disorder F33.1 [facility] [address] [place] [address] 06164- 7924 Dec, Type 2 diabetes mellitus with diabetic polyneuropathy E11.42 [place] [address] [place] [address] 17491- 3375 Dec, [facility] [id number] [place] [address] 47653- 5778 Dec, Type 2 diabetes mellitus with diabetic polyneuropathy E11.42 and Atherosclerotic heart disease of [place] coronary artery with unstable angina pectoris I25.110 [place] [address] [place] [address] 51828- 6705 Dec, Bilateral hand numbness R20.0 [facility] [address] [place] [address] 07853- 1442 Dec, Moderate episode of recurrent major depressive disorder F33.1 ; Type 2 diabetes mellitus with diabetic polyneuropathy E11.42 ; [facility] 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 Z79.4 ; Hyperlipidemia LDL goal <70 E78.5 ; Chest pain, unspecified type R07.9 ; Atherosclerotic heart disease of [place] coronary artery without angina pectoris I25.10 ; Cigarette smoker F17.210 ; Gastroesophageal reflux disease without esophagitis K21.9 and Restless leg syndrome G25.81 [place] [id number] [place] [address] 79441- 5797 18 Dec, 2017 PTSD (post-traumatic stress disorder) F43.10 and Moderate episode of recurrent major depressive disorder F33.1 [place] [address] 24398- 7849 Dec, Moderate episode of recurrent major depressive disorder F33.1 [facility] [facility] [address] 76043- 6925 Dec, [facility] [facility] [address] 96504- 1800 Dec, [place] [id number] [place] [address] 10936- 6194 Dec, Uncontrolled type 2 diabetes mellitus with hyperglycemia E11.65 and Flatulence/gas pain/belching R14.0 [facility] [facility] [id number] [place] [address] 26046- 2037 Nov, [place] [id number] [place] [address] 02857- 1578 Nov, PTSD (post-traumatic stress disorder) F43.10 and Moderate episode of recurrent major depressive disorder F33.1 [facility] [id number] [place] [address] 68681- 7504 Nov, Chest pain, unspecified type R07.9 ; Coronary artery disease involving [place] coronary artery of [place] heart with angina pectoris I25.119 ; Restless leg syndrome G25.81 ; Hospital discharge follow-up Z09 and Type 2 diabetes mellitus with diabetic polyneuropathy E11.42 [place] [address] 12108- 0740 Nov, Hyperlipidemia LDL goal <70 E78.5 [place] [address] 29179- 1905 Nov, Hospital discharge follow-up Z09 ; Chest pain, unspecified type R07.9 ; Coronary artery disease involving [place] coronary artery of [place] heart with angina pectoris I25.119 and Gastroesophageal reflux disease without esophagitis K21.9 [facility] [address] 41290- 9660 Nov, PTSD (post-traumatic stress disorder) F43.10 and Moderate episode of recurrent major depressive disorder F33.1 [place] [address] 76625- 1720 Oct, Type 2 diabetes mellitus with diabetic polyneuropathy E11.42 [place] [address] 17459- 7044 Oct, Diarrhea, unspecified type R19.7 ; Gastroesophageal reflux disease without esophagitis K21.9 and Vaginal discharge N89.8 [place] [address] 63307- 0960 Oct, Type 2 diabetes mellitus with diabetic polyneuropathy E11.42 [place] [address] 09257- 6432 Oct, Hyperlipidemia LDL goal <70 E78.5 [place] [address] 98019- 9369 Oct, Atherosclerotic heart disease of [place] coronary artery without angina pectoris I25.10 ; Coronary artery disease involving [place] heart with angina pectoris, unspecified vessel or lesion type I25.119 ; Type 2 diabetes mellitus with diabetic polyneuropathy E11.42 ; Hyperlipidemia LDL goal <70 E78.5 ; Cigarette smoker F17.210 and Post-traumatic stress reaction F43.10 [place] [address] 56128- 8372 Oct, [place] [id number] [address]- 1664 Oct, Difficulty breathing R06.89 ; Hospital discharge follow-up Z09 and Bilateral lower extremity edema R60.0 [facility] [id number] [place] [address] 25213- 9290 Oct, [facility] [id number] [place] [address] 80597 -4355 Oct, Dependent edema R60.9 [facility] [id number] [place] [address] 57901- 4251 Oct, [facility] [id number] [place] [address] 95559- 4390 Oct, [facility] [id number] [place] [address] 83973- 9964 Oct, Type 2 diabetes mellitus with diabetic polyneuropathy E11.42 [facility] [id number] [place] [address] 50704- 8088 Oct, [facility] [id number] [place] [address] 06865- 3565 Sep, [facility] [id number] [place] [address] 73585- 8480 August, [facility] [id number] [place] [address] 78549- 9727 Jul, [facility] [id number] [place] [address] 48811- 4311 Jul, Establishing care with new doctor, encounter for Z76.89 ; Type 2 diabetes mellitus with diabetic polyneuropathy E11.42 ; [facility] 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 Z79.4 ; Hyperlipidemia LDL goal <70 E78.5 ; Essential hypertension I10 and Chest pain, unspecified type R07.9 [facility] [address] [place] [address] 44472- 4623 Jul, [facility] [id number] [place] [address] 16500- 1056 Jul, [facility] [id number] [address] 1023 Jun, [facility] [address] [address] Jun, [facility] [address] [address]- 1833 Jun, [facility] [address] [place] [address] 74824- 6084 Jun, Acute hyperglycemia R73.9 ; Type 2 diabetes mellitus with diabetic polyneuropathy E11.42 ; 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 ; HTN, goal below 130/80 I10 and Hyperlipidemia LDL goal <70 E78.5 [facility] [address] [address] August, [facility] [address] [address] August, [facility] [place] [id number] [address]7842 August, Acute vaginitis N76.0 ; Trichomonas vaginitis A59.01 and Vaginal discharge N89.8 IMMUNIZATIONS No Known Immunizations SOCIAL HISTORY Never Assessed REASON FOR VISIT Increased pain to hands bilaterally PLAN OF CARE VITAL SIGNS MEDICATIONS Unknown Medications RESULTS No Results PROCEDURES No Known procedures INSTRUCTIONS MEDICATIONS ADMINISTERED No Known Medications MEDICAL (GENERAL) HISTORY Type Description Date Medical History Type 2 diabetes mellitus with diabetic polyneuropathy 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
[2018-02-20] MEDS ORDERED: ASPIRIN 81 MG CHEW (CHILDREN'S ASA) PO ONE (15:00)
[2018-02-20 15:08] LABS: BASOPHILS % (AUTO) 0 % (0-10); EOSINOPHILS # (AUTO) 0.2 10^3/uL (0.0-0.3); EOSINOPHILS % (AUTO) 3 % (0-10); HEMATOCRIT 38 % (35-52); HEMOGLOBIN 12.8 G/DL (11.5-16.0); LYMPHOCYTES # (AUTO) 2.1 X 10^3 (1.0-4.0); LYMPHOCYTES % (AUTO) 30 % (12-44); MEAN CORPUSCULAR HEMOGLOBIN 25 PG (25-34); MEAN CORPUSCULAR HGB CONC 34 G/DL (32-36); MEAN CORPUSCULAR VOLUME 75 FL (80-99); MEAN PLATELET VOLUME 9.4 FL (7.4-10.4); MONOCYTES # (AUTO) 0.4 X 10^3 (0.0-1.0); MONOCYTES % (AUTO) 5 % (0-12); NEUTROPHILS # (AUTO) 4.3 X 10^3 (1.8-7.8); NEUTROPHILS % (AUTO) 62 % (42-75); PLATELET COUNT 404 10^3/uL (130-400); RED BLOOD COUNT 5.09 10^6/uL (4.35-5.85)
--- NOTE | 2018-02-20 15:19 | Diagnostic Imaging Report ---
INDICATION: Chest pain. TIME OF EXAM: 3:08 PM COMPARISON: Correlation is made to prior chest radiograph from 12/22/2017. FINDINGS: The heart size is normal. The pulmonary vascularity is unremarkable. The lungs are clear. No infiltrate, effusion or pneumothorax is detected. IMPRESSION: No acute cardiopulmonary process is detected. Dictated by: Dictated on workstation # [id number]
--- NOTE | 2018-02-20 15:21 | ED Chest Pain ---
General Chief Complaint: Chest Pain Stated Complaint: CP,SOB Nursing Triage Note: PT STATES SHE WAS AT THE [employer] FOR A COURT DATE AND STARTED HAVING 10/10 CHEST PAIN WITHOUT RADIATION. PT WAS GIVEN 1 NITRO AND 325 ASA EN ROUTE, PAIN DECREASED 8/10 UPON ARRIVAL. PT HAD HEART CATH 1 WEEK AGO Nursing Sepsis Screen: No Definite Risk Source: patient, EMS ([facility]) Exam Limitations: no limitations History of Present Illness Date Seen by Provider: Feb 20, 2018 Time Seen by Provider: 14:38 Allergies and Home Medications Allergies Coded Allergies: coconut (Verified Allergy, Severe, anaphylactic reaction, 07/11/17) ketorolac (Unverified Allergy, Unknown, 08/19/15) Home Medications Albuterol Sulfate 18 Gm Hfa.aer.ad, 2 PUFF IH Q4H PRN for SHORTNESS OF BREATH Prescribed by: ERNESTO MEADOWS on 10/24/17 1406 Aspirin 81 Mg Tab.chew, 81 MG PO DAILY Prescribed by: RALPH BLANCO on 10/29/17 0923 Atorvastatin Calcium 80 Mg Tablet, 80 MG PO HS Prescribed by: KRISTAL IZAGUIRRE on 12/03/17 0758 Clopidogrel Bisulfate 75 Mg Tablet, 75 MG PO DAILY Prescribed by: RALPH BLANCO on 10/29/17 0923 Furosemide 40 Mg Tablet, 40 MG PO DAILY Prescribed by: RALPH BLANCO on 10/29/17 0923 Hydrocodone Bit/Acetaminophen 1 Tab Tab, 1 EACH PO Q6H PRN for PAIN-MODERATE Prescribed by: NESSA MIJARES on 12/23/17 0223 Insulin Determir 1,000 Units/10 Ml Soln, 20 UNITS SQ BID Prescribed by: NORIS KEVIN on 11/17/17 1131 Insulin Lispro 100 Unit/1 Ml Insuln.pen, 15 UNIT SQ TIDAC Prescribed by: NORIS KEVIN on 11/17/17 1131 Isosorbide Mononitrate 30 Mg Tab.er.24h, 30 MG PO DAILY Prescribed by: KRISTAL IZAGUIRRE on 11/17/17 0943 Lisinopril 5 Mg Tablet, 5 MG PO DAILY@0900 Prescribed by: KRISTAL IZAGUIRRE on 12/03/17 0758 Metoprolol Succinate 50 Mg Tab.er.24h, 50 MG PO BID Prescribed by: RALPH BLANCO on 10/29/17 1131 Naproxen 500 Mg Tablet, 500 MG PO BID Prescribed by: NESSA MIJARES on 12/23/17 022 Pantoprazole Sodium 40 Mg Granpkt.dr, 40 MG PO DAILY Prescribed by: KRISTAL IZAGUIRRE on 11/17/17 0943 Potassium Chloride 20 Meq Tab.er.prt, 20 MEQ PO DAILY@0700 Prescribed by: RALPH BLANCO on 10/29/17 0923 Prednisone 20 Mg Tab, 20 MG PO DAILY Prescribed by: JOANNE PAYNE on 01/22/18 195 Ranolazine 500 Mg Tab.er.12h, 500 MG PO BID Prescribed by: KRISTAL IZAGUIRRE on 12/03/17 0758 Tramadol HCl 50 Mg Tablet, 50 MG PO Q6H PRN for PAIN-MODERATE TO SEVERE Prescribed by: VIN VACA on 01/09/18 0042 Past Dzrqyfh-Buvybl-Htutaf Hx Patient Social History Alcohol Use: Denies Use Recreational Drug Use: No Smoking Status: Current Everyday Smoker Type Used: Cigarettes 2nd Hand Smoke Exposure: Yes Recent Foreign Travel: No Contact w/Someone Who Travel: No Recent Infectious Disease Expo: No Recent Hopitalizations: No Physical Abuse: No Sexual Abuse: No Immunizations Up To Date Tetanus Booster (TDap): Unknown PED Vaccines UTD: No Date of Pneumonia Vaccine: September 09, 2016 Seasonal Allergies Seasonal Allergies: No Past Medical History Surgeries: Yes Breast, Cardiac, Section, Tubal Ligation Respiratory: No Currently Using CPAP: No Currently Using BIPAP: No Cardiac: Yes (Hx of stent to LAD.) Coronary Artery Disease, Heart Attack, Hypertension Neurological: Yes Neuropathy Reproductive Disorders: No Female Reproductive Disorders: Ovarian Cyst Sexually Transmitted Disease: No HIV/AIDS: No Genitourinary: No Gastrointestinal: No Musculoskeletal: Yes Chronic Back Pain Endocrine: Yes Diabetes, Insulin dep, Diabetes, Non-Insulin dep HEENT: No Loss of Vision: Denies Hearing Impairment: Denies Cancer: No Psychosocial: No Integumentary: No Blood Disorders: No Adverse Reaction/Blood Tranf: No Family Medical History Cardiovascular disease 19 FATHER, Onset:Unknown 19 MOTHER, Onset:Unknown Diabetes mellitus 19 FATHER 19 MOTHER Heart Disease, Diabetes, Other Conditions/Hx Physical Exam Vital Signs Vital Signs - First Documented 02/20/18 14:38 Temp 97.8 Pulse 115 Resp 26 B/P (MAP) 131/92 (105) Pulse Ox 99 O2 Delivery Nasal Cannula O2 Flow Rate 2.0 FiO2 100 Capillary Refill : Less Than 3 Seconds Height, Weight, BMI Height: 5'2.00" Weight: 150lbs. 0.0oz. 68.598624bf; 27.5 BMI Method:Stated Progress/Results/Core Measures Results/Orders Lab Results Laboratory Tests Test 02/20/18 14:45 02/20/18 15:36 02/20/18 17:10 02/20/18 18:26 Range/Units White Blood Count 7.0 4.3-11.0 10^3/uL Red Blood Count 5.09 4.35-5.85 10^6/uL Hemoglobin 12.8 11.5-16.0 G/DL Hematocrit 38 35-52 % Mean Corpuscular Volume 75 L 80-99 FL Mean Corpuscular Hemoglobin 25 25-34 PG Mean Corpuscular Hemoglobin Concent 34 32-36 G/DL Red Cell Distribution Width 15.0 H 10.0-14.5 % Platelet Count 404 H 130-400 10^3/uL Mean Platelet Volume 9.4 7.4-10.4 FL Neutrophils (%) (Auto) 62 42-75 % Lymphocytes (%) (Auto) 30 12-44 % Monocytes (%) (Auto) 5 0-12 % Eosinophils (%) (Auto) 3 0-10 % Basophils (%) (Auto) 0 0-10 % Neutrophils # (Auto) 4.3 1.8-7.8 X 10^3 Lymphocytes # (Auto) 2.1 1.0-4.0 X 10^3 Monocytes # (Auto) 0.4 0.0-1.0 X 10^3 Eosinophils # (Auto) 0.2 0.0-0.3 10^3/uL Basophils # (Auto) 0.0 0.0-0.1 10^3/uL Prothrombin Time 11.3 L 12.2-14.7 SEC INR Comment 0.8 0.8-1.4 Activated Partial Thromboplast Time 28 24-35 SEC Sodium Level 131 L 135-145 MMOL/L Potassium Level 4.4 3.6-5.0 MMOL/L Chloride Level 96 L 98-107 MMOL/L Carbon Dioxide Level 22 21-32 MMOL/L Anion Gap 13 5-14 MMOL/L Blood Urea Nitrogen 14 7-18 MG/DL Creatinine 0.77 0.60-1.30 MG/DL Estimat Glomerular Filtration Rate > 60 BUN/Creatinine Ratio 18 Glucose Level 486 *H 70-105 MG/DL Calcium Level 10.0 8.5-10.1 MG/DL Corrected Calcium 10.1 8.5-10.1 MG/DL Magnesium Level 1.5 L 1.8-2.4 MG/DL Total Bilirubin 0.3 0.1-1.0 MG/DL Aspartate Amino Transf (AST/SGOT) 21 5-34 U/L Alanine Aminotransferase (ALT/SGPT) 26 0-55 U/L Alkaline Phosphatase 156 H 40-136 U/L Myoglobin 10.1 10.0-92.0 NG/ML Troponin I < 0.30 <0.30 NG/ML Total Protein 7.9 6.4-8.2 GM/DL Albumin 3.9 3.2-4.5 GM/DL Urine Color YELLOW Urine Clarity CLEAR Urine pH 5 5-9 Urine Specific Kulm 1.010 L 1.016-1.022 Urine Protein 2+ H NEGATIVE Urine Glucose (UA) 4+ H NEGATIVE Urine Ketones NEGATIVE NEGATIVE Urine Nitrite POSITIVE H NEGATIVE Urine Bilirubin NEGATIVE NEGATIVE Urine Urobilinogen NORMAL NORMAL MG/DL Urine Leukocyte Esterase 1+ H NEGATIVE Urine RBC (Auto) 1+ H NEGATIVE Urine RBC 0-2 /HPF Urine WBC 5-10 H /HPF Urine Squamous Epithelial Cells 2-5 /HPF Urine Crystals NONE /LPF Urine Bacteria LARGE H /HPF Urine Casts NONE /LPF Urine Mucus NEGATIVE /LPF Urine Culture Indicated YES Glucometer 444 *H 242 H 70-110 MG/DL Test 02/20/18 18:33 Range/Units Troponin I < 0.30 <0.30 NG/ML My Orders Orders - BERNOT,PRASHANT Cbc With Automated Diff (02/20/18 14:56) Magnesium (02/20/18 14:56) Chest 1 View, Ap/Pa Only (02/20/18 14:56) Ekg Tracing (02/20/18 14:56) Cardiac Profile 1 (02/20/18 14:56) Comprehensive Metabolic Panel (02/20/18 14:56) Myoglobin Serum (02/20/18 14:56) Protime With Inr (02/20/18 14:56) Partial Thromboplastin Time (02/20/18 14:56) O2 (02/20/18 14:56) Monitor-Rhythm Ecg Trace Only (02/20/18 14:56) Lipid Panel (02/21/18 06:00) Aspirin Chewable Tablet (Baby Aspirin Ch (02/20/18 15:00) Saline Lock/Iv-Start (02/20/18 14:56) Ua Culture If Indicated (02/20/18 15:27) Insulin (Regular) Human (Humulin R (Per (02/20/18 15:30) Urine Culture (02/20/18 15:36) Accucheck Stat ONCE (02/20/18 16:21) Ceftriaxone For Iv Use (Rocephin For I (02/20/18 17:15) Insulin (Regular) Human (Humulin R (Per (02/20/18 17:15) Ns Iv 1000 Ml (Sodium Chloride 0.9%) (02/20/18 17:15) Troponin I (02/20/18 18:26) Accucheck Stat ONCE (02/20/18 18:26) Medications Given in ED Current Medications Medications Dose Ordered Sig/Tomasz Route Start Time Stop Time Status Last Admin Dose Admin Ceftriaxone Sodium 1000 mg/ Sodium Chloride 50 ml @ 100 mls/hr ONCE ONCE IV 02/20/18 17:15 02/20/18 17:44 DC 02/20/18 17:33 100 MLS/HR Insulin Human Regular 5 unit ONCE ONCE IJ 02/20/18 15:30 02/20/18 15:31 DC 02/20/18 15:41 5 UNIT Insulin Human Regular 10 unit ONCE ONCE IJ 02/20/18 17:15 02/20/18 17:16 DC 02/20/18 17:32 10 UNIT Vital Signs/I&O 02/20/18 02/20/18 02/20/18 02/20/18 14:38 14:38 14:38 17:32 Temp 97.8 97.8 Pulse 115 Resp 26 B/P (MAP) 131/92 (105) Pulse Ox 99 100 O2 Delivery Nasal Cannula Nasal Cannula O2 Flow Rate 2.0 2.00 FiO2 100 Blood Pressure Mean: 105 Departure Impression Primary Impression: Chest pain Additional Impressions: Type 2 diabetes mellitus Urinary tract infection Disposition: 01 HOME, SELF-CARE Condition: Stable/Unchanged Departure-Patient Inst. Decision time for Depature: 19:08 Referrals: [facility] (PCP) Primary Care Physician [facility] (Family) Primary Care Physician Patient Instructions: Chest Pain (DC) Add. Discharge Instructions: Continue your home medications as previously prescribed. Take your antibiotic as directed. Be sure to keep a close eye on your blood sugars and adjust her insulin appropriately. Drink plenty of water to help flush out your kidneys. Follow-up with her primary care provider within 1 week for recheck. Return back to the emergency room for any worsening symptoms or concerns as needed. All discharge instructions reviewed with patient and/or family. Voiced understanding. Scripts Cephalexin (Keflex) 500 Mg Capsule 500 MG PO BID for 7 Days, #14 CAP Prov: PRASHANT FELIX 02/20/18 PRASHANT FELIX Feb 20, 2018 15:21
[2018-02-20 15:22] LABS: ALANINE AMINOTRANSFERASE 26 U/L (0-55); ALBUMIN 3.9 GM/DL (3.2-4.5); ALKALINE PHOSPHATASE 156 U/L (40-136); BILIRUBIN,TOTAL 0.3 MG/DL (0.1-1.0); BUN/CREATININE RATIO 18; CARBON DIOXIDE 22 MMOL/L (21-32); CHLORIDE 96 MMOL/L (98-107); CREATININE SERUM 0.77 MG/DL (0.60-1.30); GFR ESTIMATED > 60; INR 0.8 (0.8-1.4); MAGNESIUM 1.5 MG/DL (1.8-2.4); POTASSIUM 4.4 MMOL/L (3.6-5.0); PROTHROMBIN TIME PATIENT 11.3 SEC (12.2-14.7); SODIUM 131 MMOL/L (135-145); TOTAL PROTEIN 7.9 GM/DL (6.4-8.2)
[2018-02-20 15:23] LABS: GLUCOSE 486 MG/DL (70-105)
[2018-02-20 15:29] LABS: MYOGLOBIN SERUM 10.1 NG/ML (10.0-92.0)
[2018-02-20] MEDS ORDERED: inSUlin (REGULAR) HUMAN 1 UNIT/0.01 ML (CHARGE PER UNIT) IJ ONE ×2 (15:30→17:15)
[2018-02-20 15:43] LABS: BILIRUBIN,URINE NEGATIVE (NEGATIVE); CLARITY,URINE CLEAR; COLOR,URINE YELLOW; GLUCOSE, URINE (UA) 4+ (NEGATIVE); KETONES,URINE NEGATIVE (NEGATIVE); LEUKOCYTE ESTERASE ,URINE 1+ (NEGATIVE); NITRITE,URINE POSITIVE (NEGATIVE); PH,URINE 5 (5-9); PROTEIN,URINE 2+ (NEGATIVE); UROBILINOGEN,URINE NORMAL (NORMAL)
[2018-02-20 15:49] LABS: BACTERIA,URINE LARGE /HPF; RBC,URINE 0-2 /HPF
[2018-02-20] MEDS ORDERED: cefTRIAXone FOR IV USE 1,000 MG in NS (IVPB) 50 ML IV ONE (17:15)
[2018-02-20] MEDS ORDERED: NS IV 1000 ML 1,000 ML IV SCH (17:15)
[2018-02-20] MEDS ORDERED: CEPH-507 PO (19:09)
[2018-02-20 19:16] VITALS: BP 135/87
== END 2018-02-20 19:16 | disposition home or self-care (01) ==
LOC: EDUNIT# 14:38 → ER 14:39
DX: R07.89 Other chest pain (principal); N39.0 Urinary tract infection, site not specified; F17.210 Nicotine dependence, cigarettes, uncomplicated; I25.10 Atherosclerotic heart disease of native coronary artery without angina pectoris; I11.0 Hypertensive heart disease with heart failure; I25.2 Old myocardial infarction; E11.40 Type 2 diabetes mellitus with diabetic neuropathy, unspecified; Z98.51 Tubal ligation status; Z88.6 Allergy status to analgesic agent; Z91.018 Allergy to other foods; Z79.82 Long term (current) use of aspirin; Z79.4 Long term (current) use of insulin
CPT/HCPCS: 36415; 71045; 80053; 81000; 82962; 83735; 83874; 84484; 85025; 85610; 85730; 87077; 87088; 87186; 93005; 93041; 96361; 96365; 96372

== ENCOUNTER → 2018-02-27 | Outpatient (CLI) | payer OTHER ==
[~2018-02-27] MED LIST changes: +CEPH-507 PO
== END ==
LOC: CARD 12:16
PROVIDERS: ATTEND Internal Medicine Cardiovascular Disease
DX: I25.10 Atherosclerotic heart disease of native coronary artery without angina pectoris (principal); E11.9 Type 2 diabetes mellitus without complications; R07.89 Other chest pain; Z72.0 Tobacco use
CPT/HCPCS: 93225; 93226

== ENCOUNTER 2018-03-07 20:36 | Observation (INO) | payer OTHER ==
[~2018-03-07] VITALS: Ht 157.5 cm; Wt 73.2 kg
[2018-03-07 20:58] LABS: BASOPHILS % (AUTO) 1 % (0-10); EOSINOPHILS # (AUTO) 0.3 10^3/uL (0.0-0.3); EOSINOPHILS % (AUTO) 5 % (0-10); HEMATOCRIT 38 % (35-52); HEMOGLOBIN 12.9 G/DL (11.5-16.0); LYMPHOCYTES # (AUTO) 2.2 X 10^3 (1.0-4.0); LYMPHOCYTES % (AUTO) 34 % (12-44); MEAN CORPUSCULAR HEMOGLOBIN 25 PG (25-34); MEAN CORPUSCULAR HGB CONC 34 G/DL (32-36); MEAN CORPUSCULAR VOLUME 75 FL (80-99); MEAN PLATELET VOLUME 9.4 FL (7.4-10.4); MONOCYTES # (AUTO) 0.4 X 10^3 (0.0-1.0); MONOCYTES % (AUTO) 6 % (0-12); NEUTROPHILS # (AUTO) 3.5 X 10^3 (1.8-7.8); NEUTROPHILS % (AUTO) 55 % (42-75); PLATELET COUNT 347 10^3/uL (130-400); RED BLOOD COUNT 5.12 10^6/uL (4.35-5.85); RED CELL DISTRIBUTION WIDTH 14.9 % (10.0-14.5); WHITE BLOOD COUNT 6.4 10^3/uL (4.3-11.0)
[2018-03-07] MEDS ORDERED: ASPIRIN 81 MG CHEW (CHILDREN'S ASA) PO ONE (21:00)
[2018-03-07 21:09] LABS: INR 0.9 (0.8-1.4); PROTHROMBIN TIME PATIENT 11.8 SEC (12.2-14.7)
[2018-03-07] MEDS ORDERED: NS IV 1000 ML 1,000 ML IV ONE (21:11)
[2018-03-07] MEDS ORDERED: inSUlin (REGULAR) HUMAN 1 UNIT/0.01 ML (CHARGE PER UNIT) IV STA (21:11)
[2018-03-07 21:18] LABS: ALANINE AMINOTRANSFERASE 23 U/L (0-55); ALKALINE PHOSPHATASE 205 U/L (40-136); BILIRUBIN,TOTAL 0.4 MG/DL (0.1-1.0); BUN/CREATININE RATIO 8; CALCIUM 9.6 MG/DL (8.5-10.1); CARBON DIOXIDE 16 MMOL/L (21-32); CHLORIDE 97 MMOL/L (98-107); CREATININE SERUM 0.97 MG/DL (0.60-1.30); GFR ESTIMATED > 60; MAGNESIUM 2.5 MG/DL (1.8-2.4); POTASSIUM 3.9 MMOL/L (3.6-5.0); SODIUM 131 MMOL/L (135-145); TOTAL PROTEIN 8.4 GM/DL (6.4-8.2)
[2018-03-07 21:21] LABS: GLUCOSE 543 MG/DL (70-105)
[2018-03-07 21:25] LABS: MYOGLOBIN SERUM 13.8 NG/ML (10.0-92.0)
--- NOTE | 2018-03-07 21:25 | ED Chest Pain ---
General Chief Complaint: Chest Pain Stated Complaint: BLOOD SUGAR HIGH/ CHEST PAIN TOOK NITRO AT HOME Source: patient, family Exam Limitations: no limitations History of Present Illness Date Seen by Provider: Mar 07, 2018 Time Seen by Provider: 20:59 Initial Comments Here with report of elevated blood sugar in the 600 and intermittent chest pain. The chest pain is been going on intermittently over 2 weeks. She recently had a Holter monitor test that she does not have the results on. She was seen 2 weeks ago for the same here. States blood sugars have not really improved in that time. They have made adjustments on her meds for that. She did have heart catheter in November. They are still doing work with that. She does have history of stents and is currently on Plavix and aspirin. She takes those as directed. She did take 2 baby aspirin this morning. She did have additional insulin dosing tonight before coming to the emergency department. Currently she is pain-free. Pain is to the left side and radiates to the left arm. She states that it's sharp and does get better with nitroglycerin the last couple of days but always comes back. States that it's aching and persistent when it's going on. This is what was happening earlier this evening. Timing/Duration: intermittent, other (2 weeks) Severity/Quality: moderate, aching, sharp Location: other (left-sided anterior chest) Radiation: arms (left) Activities at Onset: none Prior CP/Workup: cardiac cath, echocardiography, stress test Modifying Factors: improves with nitroglycerin ASA po [employer] PRECINCT: Yes NTG SL [employer] PRECINCT: Yes Associated Symptoms: No abdominal pain, No back pain, No edema; fatigue; No nausea/vomiting, No shortness of breath, No weakness Allergies and Home Medications Allergies Coded Allergies: coconut (Verified Allergy, Severe, anaphylactic reaction, 07/11/17) ketorolac (Unverified Allergy, Unknown, 08/19/15) Home Medications Albuterol Sulfate 18 Gm Hfa.aer.ad, 2 PUFF IH Q4H PRN for SHORTNESS OF BREATH Prescribed by: ERNESTO MEADOWS on 10/24/17 1406 Aspirin 81 Mg Tab.chew, 81 MG PO DAILY Prescribed by: RALPH BLANCO on 10/29/17 0923 Atorvastatin Calcium 80 Mg Tablet, 80 MG PO HS Prescribed by: KRISTAL IZAGUIRRE on 8/20/18 0758 Cephalexin 500 Mg Capsule, 500 MG PO BID Prescribed by: PRASHANT FELIX on 02/20/181908 Clopidogrel Bisulfate 75 Mg Tablet, 75 MG PO DAILY Prescribed by: RALPH BLANCO on 10/29/17922 Furosemide 40 Mg Tablet, 40 MG PO DAILY Prescribed by: RALPH BLANCO on 10/29/17922 Hydrocodone Bit/Acetaminophen 1 Tab Tab, 1 EACH PO Q6H PRN for PAIN-MODERATE Prescribed by: NESSA MIJARES on 12/23/17222 Insulin Determir 1,000 Units/10 Ml Soln, 20 UNITS SQ BID Prescribed by: NORIS KEVIN on 11/17/171130 Insulin Lispro 100 Unit/1 Ml Insuln.pen, 15 UNIT SQ TIDAC Prescribed by: NORIS KEVNI on 11/17/171130 Isosorbide Mononitrate 30 Mg Tab.er.24h, 30 MG PO DAILY Prescribed by: KRISTAL IZAGUIRRE on 11/17/17 09 Lisinopril 5 Mg Tablet, 5 MG PO DAILY@0900 Prescribed by: KRISTAL IZAGUIRRE on 12/03/17757 Metoprolol Succinate 50 Mg Tab.er.24h, 50 MG PO BID Prescribed by: RALPH BLANCO on 10/29/171130 Naproxen 500 Mg Tablet, 500 MG PO BID Prescribed by: NESSA MIJARES on 12/23/17222 Pantoprazole Sodium 40 Mg Granpkt.dr, 40 MG PO DAILY Prescribed by: KRISTAL IZAGUIRRE on 11/17/17942 Potassium Chloride 20 Meq Tab.er.prt, 20 MEQ PO DAILY@0700 Prescribed by: RALPH BLANCO on 10/29/17922 Prednisone 20 Mg Tab, 20 MG PO DAILY Prescribed by: JOANNE PAYNE on 01/22/181958 Ranolazine 500 Mg Tab.er.12h, 500 MG PO BID Prescribed by: KRISTAL IZAGUIRRE on 12/03/17757 Tramadol HCl 50 Mg Tablet, 50 MG PO Q6H PRN for PAIN-MODERATE TO SEVERE Prescribed by: VIN VACA on 01/09/18 0042 Patient Home Medication List Home Medication List Reviewed: Yes Review of Systems Review of Systems Constitutional: see HPI; No chills, No fever EENTM: No Symptoms Reported Respiratory: No Symptoms Reported Cardiovascular: Chest Pain; Denies Edema, Denies Irregular Heart Rate Gastrointestinal: No Symptoms Reported Genitourinary: No Symptoms Reported Musculoskeletal: no symptoms reported Skin: no symptoms reported Psychiatric/Neurological: No Symptoms Reported Endocrine: See HPI All Other Systems Reviewed Negative Unless Noted: Yes Past Fpstvhd-Vlwibl-Zjwowu Hx Past Med/Social Hx: Reviewed Nursing Past Med/Soc Hx Patient Social History Alcohol Use: Denies Use Recreational Drug Use: No Smoking Status: Current Everyday Smoker Type Used: Cigarettes 2nd Hand Smoke Exposure: Yes Recent Foreign Travel: No Contact w/Someone Who Travel: No Recent Hopitalizations: No Immunizations Up To Date Tetanus Booster (TDap): Unknown PED Vaccines UTD: No Date of Pneumonia Vaccine: September 09, 2016 Seasonal Allergies Seasonal Allergies: No Past Medical History Surgeries: Yes Breast, Cardiac, Section, Tubal Ligation Respiratory: No Currently Using CPAP: No Currently Using BIPAP: No Cardiac: Yes (Hx of stent to LAD.) Coronary Artery Disease, Heart Attack, Hypertension Neurological: Yes Neuropathy Reproductive Disorders: No Female Reproductive Disorders: Ovarian Cyst Sexually Transmitted Disease: No HIV/AIDS: No Genitourinary: No Gastrointestinal: No Musculoskeletal: Yes Chronic Back Pain Endocrine: Yes Diabetes, Insulin dep, Diabetes, Non-Insulin dep HEENT: No Loss of Vision: Denies Hearing Impairment: Denies Cancer: No Psychosocial: No Integumentary: No Blood Disorders: No Adverse Reaction/Blood Tranf: No Family Medical History Reviewed Nursing Family Hx Cardiovascular disease 19 FATHER, Onset:Unknown 19 MOTHER, Onset:Unknown Diabetes mellitus 19 FATHER 19 MOTHER Heart Disease, Diabetes, Other Conditions/Hx Physical Exam Vital Signs Vital Signs - First Documented Capillary Refill : Height, Weight, BMI Height: 5'2.00" Weight: 150lbs. 0.0oz. 68.306524fo; 27.5 BMI Method:Stated General Appearance: No Apparent Distress, WD/WN HEENT: PERRL/EOMI, Pharynx Normal Neck: Non Tender, Supple Respiratory: Lungs Clear, Normal Breath Sounds Cardiovascular: No Murmur, Tachycardia Gastrointestinal: Non Tender, Soft Extremity: Normal Range of Motion, Non Tender Neurologic/Psychiatric: Alert, Oriented x3 Skin: Normal Color, Warm/Dry Progress/Results/Core Measures Results/Orders Lab Results Laboratory Tests Test 03/07/18 20:52 03/07/18 20:59 Range/Units White Blood Count 6.4 4.3-11.0 10^3/uL Red Blood Count 5.12 4.35-5.85 10^6/uL Hemoglobin 12.9 11.5-16.0 G/DL Hematocrit 38 35-52 % Mean Corpuscular Volume 75 L 80-99 FL Mean Corpuscular Hemoglobin 25 25-34 PG Mean Corpuscular Hemoglobin Concent 34 32-36 G/DL Red Cell Distribution Width 14.9 H 10.0-14.5 % Platelet Count 347 130-400 10^3/uL Mean Platelet Volume 9.4 7.4-10.4 FL Neutrophils (%) (Auto) 55 42-75 % Lymphocytes (%) (Auto) 34 12-44 % Monocytes (%) (Auto) 6 0-12 % Eosinophils (%) (Auto) 5 0-10 % Basophils (%) (Auto) 1 0-10 % Neutrophils # (Auto) 3.5 1.8-7.8 X 10^3 Lymphocytes # (Auto) 2.2 1.0-4.0 X 10^3 Monocytes # (Auto) 0.4 0.0-1.0 X 10^3 Eosinophils # (Auto) 0.3 0.0-0.3 10^3/uL Basophils # (Auto) 0.0 0.0-0.1 10^3/uL Prothrombin Time 11.8 L 12.2-14.7 SEC INR Comment 0.9 0.8-1.4 Activated Partial Thromboplast Time 30 24-35 SEC Sodium Level 131 L 135-145 MMOL/L Potassium Level 3.9 3.6-5.0 MMOL/L Chloride Level 97 L 98-107 MMOL/L Carbon Dioxide Level 16 L 21-32 MMOL/L Anion Gap 18 H 5-14 MMOL/L Blood Urea Nitrogen 8 7-18 MG/DL Creatinine 0.97 0.60-1.30 MG/DL Estimat Glomerular Filtration Rate > 60 BUN/Creatinine Ratio 8 Glucose Level 543 *H 70-105 MG/DL Calcium Level 9.6 8.5-10.1 MG/DL Corrected Calcium 9.6 8.5-10.1 MG/DL Magnesium Level 2.5 H 1.8-2.4 MG/DL Total Bilirubin 0.4 0.1-1.0 MG/DL Aspartate Amino Transf (AST/SGOT) 18 5-34 U/L Alanine Aminotransferase (ALT/SGPT) 23 0-55 U/L Alkaline Phosphatase 205 H 40-136 U/L Myoglobin 13.8 10.0-92.0 NG/ML Troponin I < 0.30 <0.30 NG/ML Total Protein 8.4 H 6.4-8.2 GM/DL Albumin 4.0 3.2-4.5 GM/DL Glucometer 441 *H 70-110 MG/DL My Orders Orders - NESSA MIJARES MD Cbc With Automated Diff (03/07/18 20:47) Magnesium (03/07/18 20:47) Chest 1 View, Ap/Pa Only (03/07/18 20:47) Ekg Tracing (03/07/18 20:47) Cardiac Profile 1 (03/07/18 20:47) Comprehensive Metabolic Panel (03/07/18 20:47) Myoglobin Serum (03/07/18 20:47) Protime With Inr (03/07/18 20:47) Partial Thromboplastin Time (03/07/18 20:47) O2 (03/07/18 20:47) Monitor-Rhythm Ecg Trace Only (03/07/18 20:47) Lipid Panel (03/08/18 06:00) Aspirin Chewable Tablet (Baby Aspirin Ch (03/07/18 21:00) Saline Lock/Iv-Start (03/07/18 20:47) Saline Lock/Iv-Start (03/07/18 21:11) Ns Iv 1000 Ml (Sodium Chloride 0.9%) (03/07/18 21:11) Insulin (Regular) Human (Humulin R (Per (03/07/18 21:11) Medications Given in ED Current Medications Medications Dose Ordered Sig/Tomasz Route Start Time Stop Time Status Last Admin Dose Admin Aspirin 324 mg ONCE ONCE PO 03/07/18 21:00 03/07/18 21:01 DC 03/07/18 20:54 324 MG Sodium Chloride 1,000 ml @ 0 mls/hr Q0M ONCE IV 03/07/18 21:11 03/07/18 21:13 DC 03/07/18 21:56 999 MLS/HR Vital Signs/I&O 03/07/18 03/07/18 20:45 20:45 Temp 98.8 Pulse 115 Resp 19 B/P (MAP) 127/105 (112) O2 Delivery Room Air Room Air FSBG Bedside Testing Finger Stick Blood Glucose: 441 Blood Glucose Action Taken: AND RN NOTIFIED Progress Progress Note : Progress Note Seen and evaluated. IV, labs, chest x-ray and EKG ordered. Normal saline 1 L bolus. Insulin 15 units IV ordered. ASA 324 mg by mouth given. Monitor patient. 2237: Blood sugar much improved. Patient still with intermittent chest pain. Morphine 4 mg IV. I did discuss the case with Dr. Muñoz and she is willing to admit if cardiology would like that. I did discuss the case with Dr. West at 2243. He thinks that admission is warranted given her significant cardiac history. We will put patient on chest pain order set as well as sliding scale and I will continue fluids at 75 mL an hour of normal saline. I did discuss all of this with the patient who was greatly comforted by the fact that further evaluation was given be done because she was markedly concerned about her chest pain. Admit, observation status. Patient verbalize understanding instructions and agreement with plan. Initial ECG Impression Date: Mar 07, 2018 Initial ECG Impression Time: 21:27 Initial ECG Rate: 104 Initial ECG Rhythm: S.Tach Initial ECG Comparisson: Unchanged Comment Sinus tachycardia with no evidence of ST elevation [place]. Normal axis. Similar to 02/20/18. Interpreted by me. Diagnostic Imaging Diagonstic Imaging: Xray Plain Films/CT/US/NM/MRI: chest Comments NAME: BLAS QUEVEDO [facility] REC#: [id number] PT STATUS: REG ER : 1980 PHYSICIAN: NESSA MIJARES MD ADMIT DATE: 03/07/18/ER Signed Date of Exam: 03/07/18 CHEST 1 VIEW, AP/PA ONLY INDICATION: Chest pain for last 24 hours. Left-sided arm pain. EXAMINATION: Chest dated 03/07/2018. COMPARISON: 02/20/2018. FINDINGS: The cardiomediastinal silhouette is unremarkable. The pulmonary vasculature is within normal limits. The lungs and pleural spaces are clear. IMPRESSION: No evidence of an acute cardiopulmonary process. Dictated by: Dictated on workstation # [id number] Dict: 03/07/182123 Trans: 03/07/182222 Interpreted by: VANESA FRANCIS MD Electronically signed by: VANESA FRANCIS MD 03/07/182222 Departure Communication (Admissions) Time/Spoke to Admitting Phy: 22:38 Time/Spoke to Consulting Phy: 22:43 Impression Primary Impression: Chest pain Qualified Codes: R07.9 - Chest pain, unspecified Disposition: 09 ADMITTED INPATIENT Condition: Stable Admissions Decision to Admit Reason: Admit from ER (General) Decision to Admit/Date: Mar 07, 2018 Time/Decision to Admit Time: 22:38 Departure-Patient Inst. Referrals: [facility] [place] Primary Care Physician [facility] (Family) Primary Care Physician NESSA MIJARES MD Mar 07, 2018 21:25
--- NOTE | 2018-03-07 21:35 | Diagnostic Imaging Report ---
INDICATION: Chest pain for last 24 hours. Left-sided arm pain. EXAMINATION: Chest dated 03/07/2018. COMPARISON: 02/20/2018. FINDINGS: The cardiomediastinal silhouette is unremarkable. The pulmonary vasculature is within normal limits. The lungs and pleural spaces are clear. IMPRESSION: No evidence of an acute cardiopulmonary process. Dictated by: Dictated on workstation # [id number]
[2018-03-07] MEDS ORDERED: morphine INJ 10 MG/ML 1ML (SYR OR VIAL) IVP STA ×2 (22:54→23:37)
[2018-03-08] VITALS (21 sets, daily range): BP systolic 109–139; BP diastolic 65–90
--- OUTSIDE RECORDS SUMMARY | 2018-03-08 00:03 | XMS REPORT | Clinical Summary ---
Author Author [facility] Organization [facility] Address Unknown Phone Unavailable Care Team Providers Care Director Case Name Role Phone Alfred Diaz MD PCP Unavailable Source Comments Some departments are not documenting in the electronic medical record. If you do not see the information that you expected, contact Release of Information in the Health Information Management department at [phone] for further assistance in locating additional records.[facility] Allergies Not on File Current Medications Not on file Active Problems Not on file Social History Tobacco Use Types Packs/Day Years Used Date Never Assessed Sex Assigned at Date Recorded Not on file Last Filed Vital Signs Not on file Plan of Treatment Health Maintenance Due Date Last Done Comments PHYSICAL (COMPREHENSIVE) 02/02/1988 EXAM HIV SCREENING 02/02/1996 DTAP/TDAP VACCINES (1 - 1999 Tdap) CERVICAL CANCER SCREENING 2011 INFLUENZA VACCINE 11/14/2017 Results Not on filefrom Last 3 Months
--- OUTSIDE RECORDS SUMMARY | 2018-03-08 00:03 | XMS REPORT ---
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, unspecified vessel or lesion type I25.119 Active 13423195 Problem Carpal tunnel syndrome on both sides G56.03 Active [id number] Problem 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 I25.110 Active [id number] Problem Moderate episode of recurrent major depressive disorder F33.1 Active 766572354 Problem PTSD (post-traumatic stress disorder) F43.10 Active 86650241 Problem Restless leg syndrome G25.81 Active 05799033 Problem Coronary artery disease involving pechanga coronary artery of pechanga heart with angina pectoris I25.119 Active 1246559944419 Problem Elevated BUN R79.9 Active 361237799 Problem PVC (premature ventricular contraction) I49.3 Active 25761270 Problem Hyperlipidemia LDL goal <70 E78.5 Active 57932445 Problem Chest pain, unspecified type R07.9 Active 27802498 Problem 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 Active 187389118 Problem Essential hypertension I10 Active 93070214 Problem Type 2 diabetes mellitus with diabetic polyneuropathy E11.42 Active 09278475 Problem Atherosclerotic 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[place] coronary artery without angina pectoris I25.10 Active 992631753 ALLERGIES No Information ENCOUNTERS Encounter Location Date Diagnosis [facility] [address] [facility] [id number] [address] Mar, [facility] [id number] [address] Feb, [facility] [address] [place] [address] Jan, [facility] [id number] [place] [address]199[address] 2399 Jan, Carpal tunnel syndrome on both sides G56.03 [facility] [id number] [place] [address] 93534- 8360 Jan, PTSD (post-traumatic stress disorder) F43.10 and Moderate episode of recurrent major depressive disorder F33.1 [facility] [id number] [place] [address]37- 2624 Jan, [place] [id number] [place] [address] 46587- 8084 Jan, PTSD (post-traumatic stress disorder) F43.10 and Moderate episode of recurrent major depressive disorder F33.1 [place] [id number] [place] [address] 93923- 4508 Jan, Type 2 diabetes mellitus with diabetic polyneuropathy E11.42 [facility] [id number] [place] [address] 15393- 6024 Jan, PTSD (post-traumatic stress disorder) F43.10 and Moderate episode of recurrent major depressive disorder F33.1 [place] [address] [address] Jan, PTSD (post-traumatic stress disorder) F43.10 and Moderate episode of recurrent major depressive disorder F33.1 [facility] [id number] [place] [address] 37409- 8571 Jan, [facility] [id number] [place] [address] 24966 [address]8278 Jan, Pain of left hand M79.642 and Pain in right hand M79.641 [facility] [id number] [place] [address] 09590- 7078 Jan, [place] [id number] [place] [address] 34768- 3012 Dec, Bilateral hand numbness R20.0 [place] [id number] [place] [address] 57333- 8190 Dec, PTSD (post-traumatic stress disorder) F43.10 and Moderate episode of recurrent major depressive disorder F33.1 [place] [id number] [place] [address] 05366- 9379 24 Dec, 2017 Type 2 diabetes mellitus with diabetic polyneuropathy E11.42 [facility] [id number] [place] [address] 32111- 1746 Dec, [place] [id number] [place] [address] 64938- 9474 Dec, Type 2 diabetes mellitus with diabetic polyneuropathy E11.42 and 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 I25.110 [facility] [id number] [place] [address] 69390- 4290 Dec, Bilateral hand numbness R20.0 [facility] [id number] [place] [address] 24258- 2147 18 Dec, 2017 Moderate episode of recurrent major depressive disorder F33.1 ; Type 2 diabetes mellitus with diabetic polyneuropathy E11.42 ; care home 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 Z79.4 ; Hyperlipidemia LDL goal <70 E78.5 ; Chest pain, unspecified type R07.9 ; Atherosclerotic 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[place] coronary artery without angina pectoris I25.10 ; Cigarette smoker F17.210 ; Gastroesophageal reflux disease without esophagitis K21.9 and Restless leg syndrome G25.81 [place] [id number] [place] [address] 61539- 6875 18 Dec, 2017 PTSD (post-traumatic stress disorder) F43.10 and Moderate episode of recurrent major depressive disorder F33.1 [place] [id number] [place] [address] 75814- 9032 11 Dec, 2017 Moderate episode of recurrent major depressive disorder F33.1 [place] [id number] [place] [address] 25928- 9539 Dec, [place] [id number] [place] [address] 75889- 5683 Dec, [facility] [id number] [place] [address] 46021- 3197 Dec, Uncontrolled type 2 diabetes mellitus with hyperglycemia E11.65 and Flatulence/gas pain/belching R14.0 [place] [id number] [place] [address] 89809- 5574 Nov, [place] [address] [address]- [address] Nov, PTSD (post-traumatic stress disorder) F43.10 and Moderate episode of recurrent major depressive disorder F33.[address] [address] Nov, Chest pain, unspecified type R07.9 ; Coronary artery disease involving pechanga coronary artery of pechanga heart with angina pectoris I25.119 ; Restless leg syndrome G25.81 ; Hospital discharge follow-up Z09 and Type 2 diabetes mellitus with diabetic polyneuropathy E11.42 [facility] [id number] [place] [address] 15124- 3231 Nov, Hyperlipidemia LDL goal <70 E78.5 [place] [id number] [place] [address] 17065- 6150 14 Nov, 2017 Hospital discharge follow-up Z09 ; Chest pain, unspecified type R07.9 ; Coronary artery disease involving pechanga coronary artery of pe[place]anga heart with angina pectoris I25.119 and Gastroesophageal reflux disease without esophagitis K21.9 [facility] [id number] [place] [address] 36001- 4930 Nov, PTSD (post-traumatic stress disorder) F43.10 and Moderate episode of recurrent major depressive disorder F33.1 [place] [id number] [place] [address] 36577- 3283 Oct, Type 2 diabetes mellitus with diabetic polyneuropathy E11.42 [facility] [id number] [place] [address] 48133- 5023 Oct, Diarrhea, unspecified type R19.7 ; Gastroesophageal reflux disease without esophagitis K21.9 and Vaginal discharge N89.8 [place] [id number] [place] [address] 60892- 3247 Oct, Type 2 diabetes mellitus with diabetic polyneuropathy E11.42 [facility] [id number] [place] [address] 53545- 9607 Oct, Hyperlipidemia LDL goal <70 E78.5 [place] [address] [address]- 8204 Oct, Atherosclerotic 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[place] coronary artery without angina pectoris I25.10 ; Coronary artery disease involving pechanga heart with angina pectoris, unspecified vessel or lesion type I25.119 ; Type 2 diabetes mellitus with diabetic polyneuropathy E11.42 ; Hyperlipidemia LDL goal <70 E78.5 ; Cigarette smoker F17.210 and Post-traumatic stress reaction F43.10 [place] [id number] [place] [address] 26222- 1339 Oct, [place] [id number] [place] [address] 56433- 1599 Oct, Difficulty breathing R06.89 ; Hospital discharge follow-up Z09 and Bilateral lower extremity edema R60.0 [facility] [id number] [place] [address] 45110- 1233 Oct, [facility] [id number] [place] [address] 75598 -7207 Oct, Dependent edema R60.9 [facility] [id number] [place] [address] 92159- 6631 Oct, [facility] [id number] [place] [address] 59020- 5397 Oct, [place] [address] [address] Oct, Type 2 diabetes mellitus with diabetic polyneuropathy E11.42 [facility] [address] [place] [address] Oct, [facility] [address] [place] [address] Sep, [facility] [address], [place] [address] August, [facility] [address], [place] [address] Jul, [facility] [address], [place] [address] Jul, Establishing care with new doctor, encounter for Z76.89 ; Type 2 diabetes mellitus with diabetic polyneuropathy E11.42 ; 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 ; Hyperlipidemia LDL goal <70 E78.5 ; Essential hypertension I10 and Chest pain, unspecified type R07.9 [facility] [address], [place] [address] Jul, [facility] [id number] [address] Jul, [facility] [id number] [address] Jun, [facility] [address], [place] [address] 99[address] Jun, [facility] [id number] [address] Jun, [facility] [address] [place] [address] Jun, Acute hyperglycemia R73.9 ; Type 2 diabetes mellitus with diabetic polyneuropathy E11.42 ; 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 ; HTN, goal below 130/80 I10 and Hyperlipidemia LDL goal <70 E78.5 [facility] [address] [facility] [id number] [place] [address] August, [facility] [address] [facility] [id number] [place] [address] August, [facility] [address] [facility] [id number] [place] [address] August, Acute vaginitis N76.0 ; Trichomonas vaginitis A59.01 and Vaginal discharge N89.8 IMMUNIZATIONS No Known Immunizations SOCIAL HISTORY Never Assessed REASON FOR VISIT bilat hand numbness - SADE Dozier PLAN OF CARE Activity Details Follow Up prn Reason: VITAL SIGNS Height 62 in 2018-02-07 Blood pressure systolic 116 mmHg 2018-02-07 Blood pressure diastolic 86 mmHg 2018-02-07 MEDICATIONS Unknown Medications RESULTS No Results PROCEDURES No Known procedures INSTRUCTIONS MEDICATIONS ADMINISTERED No Known Medications MEDICAL (GENERAL) HISTORY Type Description Date Medical History Type 2 diabetes mellitus with diabetic polyneuropathy Medical History 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
[2018-03-08] MEDS ORDERED: CLOPIDOGREL 75 MG (PLAVIX) TABLET PO ONE (00:30)
[2018-03-08] MEDS ORDERED: CATHETER FLUSH 10 ML SYR IV PRN (02:15)
[2018-03-08] MEDS: NS IV 1000 ML 1,000 ML IV SCH ×2 (02:53→15:41)
[2018-03-08 04:11] LABS: CREATINE KINASE 25 U/L (29-168)
[2018-03-08 04:18] LABS: MYOGLOBIN SERUM 10.3 NG/ML (10.0-92.0)
[2018-03-08 05:56] LABS: BASOPHILS % (AUTO) 0 % (0-10); EOSINOPHILS # (AUTO) 0.4 10^3/uL (0.0-0.3); EOSINOPHILS % (AUTO) 6 % (0-10); HEMATOCRIT 34 % (35-52); HEMOGLOBIN 11.1 G/DL (11.5-16.0); LYMPHOCYTES # (AUTO) 2.6 X 10^3 (1.0-4.0); LYMPHOCYTES % (AUTO) 37 % (12-44); MEAN CORPUSCULAR HEMOGLOBIN 25 PG (25-34); MEAN CORPUSCULAR HGB CONC 33 G/DL (32-36); MEAN CORPUSCULAR VOLUME 76 FL (80-99); MEAN PLATELET VOLUME 9.1 FL (7.4-10.4); MONOCYTES # (AUTO) 0.5 X 10^3 (0.0-1.0); MONOCYTES % (AUTO) 6 % (0-12); NEUTROPHILS # (AUTO) 3.7 X 10^3 (1.8-7.8); NEUTROPHILS % (AUTO) 51 % (42-75); PLATELET COUNT 266 10^3/uL (130-400); RED BLOOD COUNT 4.43 10^6/uL (4.35-5.85); RED CELL DISTRIBUTION WIDTH 14.7 % (10.0-14.5); WHITE BLOOD COUNT 7.2 10^3/uL (4.3-11.0)
[2018-03-08] MEDS: CATHETER FLUSH 10 ML SYR IV SCH ×3 (06:31→22:00)
[2018-03-08 06:32] LABS: CHOLESTEROL 205 MG/DL (< 200); HDL CHOLESTEROL 30 MG/DL (40-60); TRIGLYCERIDES 406 MG/DL (<150); VLDL CHOLESTEROL 81 MG/DL (5-40)
[2018-03-08 06:35] LABS: ALANINE AMINOTRANSFERASE 18 U/L (0-55); ALBUMIN 3.3 GM/DL (3.2-4.5); ALKALINE PHOSPHATASE 141 U/L (40-136); BILIRUBIN,TOTAL 0.4 MG/DL (0.1-1.0); BUN/CREATININE RATIO 20; CALCIUM 8.2 MG/DL (8.5-10.1); CARBON DIOXIDE 21 MMOL/L (21-32); CHLORIDE 107 MMOL/L (98-107); CREATININE SERUM 0.61 MG/DL (0.60-1.30); GFR ESTIMATED > 60; GLUCOSE 266 MG/DL (70-105); POTASSIUM 3.8 MMOL/L (3.6-5.0); SODIUM 137 MMOL/L (135-145); TOTAL PROTEIN 6.1 GM/DL (6.4-8.2)
[2018-03-08] MEDS: inSUlin ASPART (NovoLOG) 1 UNIT/0.01 ML (CHARGE PER UNIT) SC SCH ×4 (06:39→19:30)
[2018-03-08] MEDS: NITROGLYCERIN 0.4 MG SL TABS BTL 25'S SL PRN ×3 (08:55→09:06)
[2018-03-08] MEDS ORDERED: CLOPIDOGREL 75 MG (PLAVIX) TABLET PO SCH (09:00)
[2018-03-08] MEDS ORDERED: FLU QUADRIvalent (5+ YOA) 2018-2019 (AFLURIA) 0.5 ML IM ONE (09:00)
[2018-03-08] MEDS: morphine INJ 4 MG/ML 1 ML (VIAL/SYRINGE) IV PRN ×3 (09:18→16:35)
[2018-03-08 12:18] LABS: CHOLESTEROL 211 MG/DL (< 200); HDL CHOLESTEROL 32 MG/DL (40-60); TRIGLYCERIDES 353 MG/DL (<150); VLDL CHOLESTEROL 71 MG/DL (5-40)
[2018-03-08 12:25] LABS: MYOGLOBIN SERUM 9.9 NG/ML (10.0-92.0)
--- NOTE | 2018-03-08 14:44 | Consultation-Cardiology ---
HPI-Cardiology Cardiology Consultation: Date of Consultation 03/08/18 Date of Admission Attending Physician Leyda Muñoz MD Admitting Physician [facility] Consulting Physician Lynn ROQUE MD HPI: Time Seen by a Provider: 11:00 Chief Complaint: Chest pain This is a 38-year-old lady with history of diabetes, active smoking, hypertension, hyperlipidemia. She has previous history of CAD with PCI by Dr. Benoit in September 2017. She had recurrent chest pain and required coronary angiography by Dr. Hernandez a month later which did not reveal any significant stenosis. The patient continues to smoke. She presents with off-and-on chest pain for the last 2 days. Longest episode of chest pain is for 20 minutes. Substernal. No exacerbating or relieving factors. Severe intensity. 01/23. Some improvement with nitroglycerin however her chest pain recurs. During the hospitalization she also had severe chest pain refractory to 3 nitroglycerin. She was also given morphine. She denies shortness of breath, nausea, vomiting, syncope, near-syncope or palpitations. Review of Systems-Cardiology Review of Systems Constitutional: As described under HPI; No As described under HPI, No no symptoms reported, No chills, No fever, No lightheadedness Eyes: No As described under HPI, No no symptoms reported, No blindness, No blurred vision, No contact lenses, No drainage, No decreased acuity, No foreign body sensation, No pain, No vision change Ears/Nose/Throat: No As described under HPI, No no symptoms reported, No chronic hearing loss, No ear discharge, No ear pain, No nasal drainage, No ulcerations Respiratory: No no symptoms reported; As described under HPI; No As described under HPI, No cough, No orthopnea, No shortness of breath, No SOB with excertion Cardiovascular: No no symptoms reported; As described under HPI; No As described under HPI; chest pain; No edema, No irregular heart rate, No lightheadedness, No palpitations Gastrointestinal: No no symptoms reported, No As described under HPI, No abdomen distended, No abdominal pain, No blood streaked bowels, No constipation , No diarrhea, No nausea, No vomiting, No stool coloration changes Genitourinary: No As described under HPI, No burning, No dysuria, No discharge , No frequency, No flank pain, No hematuria, No urgency : Yes : No Musculoskeletal: No no symptoms reported, No As describe under HPI, No back pain, No gout, No joint pain, No joint swelling, No muscle pain, No muscle stiffness, No neck pain, No other Skin: No no symptoms reported, No As described under HPI, No change in color, No change in hair/nails, No dryness, No lesions, No lumps, No rash, No other, No skin related problems, No ulcerations, No rash on exposed areas, No ulcerations on exposed areas Psychiatric/Neurological: No anxiety, No depression, No seizure, No focal weakness, No syncope Hematologic: No bleeding abnormalities All Other Systems Reviewed Negative Unless Noted: Yes TML-[id number]-Buvqxt Hx Patient Social History Alcohol Use: Denies Use Recreational Drug Use: No Smoking Status: Current Everyday Smoker Type Used: Cigarettes 2nd Hand Smoke Exposure: Yes Recent Foreign Travel: No Recent Infectious Disease Expo: No Hospitalization with Isolation: Denies Physical Abuse Screen: No Sexual Abuse: No Immunizations Up To Date Tetanus Booster (TDap): Unknown Date of Pneumonia Vaccine: September 09, 2016 Past Medical History PMH As described under Assessment. Family Medical History Family History: Cardiovascular disease 19 FATHER, Onset:Unknown 19 MOTHER, Onset:Unknown Diabetes mellitus 19 FATHER 19 MOTHER Allergies and Home Medications Allergies Coded Allergies: coconut (Verified Allergy, Severe, anaphylactic reaction, 07/11/17) ketorolac (Unverified Allergy, Unknown, 08/19/15) Home Medications Albuterol Sulfate 18 Gm Hfa.aer.ad, 2 PUFF IH Q4H PRN for SHORTNESS OF BREATH Prescribed by: ERNESTO MEADOWS on 10/24/17 1406 Aspirin 81 Mg Tab.chew, 81 MG PO DAILY Prescribed by: RALPH BLANCO on 10/29/17 09 Atorvastatin Calcium 80 Mg Tablet, 80 MG PO HS Prescribed by: KRISTAL HERNANDEZ on 12/03/17 0758 Cephalexin 500 Mg Capsule, 500 MG PO BID Prescribed by: PRASHANT FELIX on 02/20/18 190 Clopidogrel Bisulfate 75 Mg Tablet, 75 MG PO DAILY Prescribed by: RALPH BLANCO on 10/29/17 09 Furosemide 40 Mg Tablet, 40 MG PO DAILY Prescribed by: RALPH BLANCO on 10/29/17 09 Hydrocodone Bit/Acetaminophen 1 Tab Tab, 1 EACH PO Q6H PRN for PAIN-MODERATE Prescribed by: NESSA MIJARES on 12/23/17222 Insulin Determir 1,000 Units/10 Ml Soln, 20 UNITS SQ BID Prescribed by: NORIS KEVIN on 11/17/171130 Insulin Lispro 100 Unit/1 Ml Insuln.pen, 15 UNIT SQ TIDAC Prescribed by: NORIS KEVIN on 11/17/171130 Isosorbide Mononitrate 30 Mg Tab.er.24h, 30 MG PO DAILY Prescribed by: KRISTAL HERNANDEZ on 11/17/17 09 Lisinopril 5 Mg Tablet, 5 MG PO DAILY@0900 Prescribed by: KRISTAL HERNANDEZ on 12/03/17757 Metoprolol Succinate 50 Mg Tab.er.24h, 50 MG PO BID Prescribed by: RALPH BLANCO on 10/29/171130 Naproxen 500 Mg Tablet, 500 MG PO BID Prescribed by: NESSA MIJARES on 12/23/17222 Pantoprazole Sodium 40 Mg Granpkt.dr, 40 MG PO DAILY Prescribed by: KRISTAL HERNANDEZ on 11/17/17942 Potassium Chloride 20 Meq Tab.er.prt, 20 MEQ PO DAILY@0700 Prescribed by: RALPH BLANCO on 10/29/17922 Prednisone 20 Mg Tab, 20 MG PO DAILY Prescribed by: OJANNE PAYNE on 01/22/181958 Ranolazine 500 Mg Tab.er.12h, 500 MG PO BID Prescribed by: KRISTAL HERNANDEZ on 12/03/17757 Tramadol HCl 50 Mg Tablet, 50 MG PO Q6H PRN for PAIN-MODERATE TO SEVERE Prescribed by: VIN VACA on 01/09/18 0042 Patient Home Medication List Home Medication List Reviewed: Yes Physical Exam-Cardiology Physical Exam Vital Signs/I&O 03/08/18 03/08/18 03/08/18 03/08/18 03:45 04:45 07:00 08:00 Temp 98.4 Pulse 102 95 96 99 Resp 18 B/P (MAP) 114/73 (87) 112/74 (87) 120/76 (91) Pulse Ox 95 96 97 O2 Delivery Room Air Room Air 03/08/18 03/08/18 12:00 13:00 Temp 98.4 Pulse 83 81 Resp 16 B/P (MAP) 109/65 (80) Pulse Ox 96 O2 Delivery Room Air 03/08/18 00:00 Intake Total 1000 ml Balance 1000 ml Capillary Refill : Less Than 3 Seconds Constitutional: appears stated age, AAO x 3; No apparent distress; well- developed, well-nourished HEENT: PERRL; No normal ENT inspection, No TMs normal, No pharynx normal, No scleral icterus (R), No scleral icterus (L), No pale conjunctivae (R), No pale conjunctivae (L), No photophobia, No TM abnormal (R), No TM abnormal (L), No pharyngeal erythema, No tonsillar exudate, No other, No discharge, No EOMI; hearing is well preserved; No hard of hearing; oral hygience is good; No ulceration, No xanthelasmas are seen Neck: No non-tender, No full range of motion, No supple, No normal inspection, No carotid bruit, No limited range of motion, No lymphadenopathy (R), No lymphadenopathy (L), No tender lateral, No tender midline, No thyromegaly, No other; carotid pulses are 2 + bilaterally; No with good upstrokes Respiratory: No accessory muscle use, No respiratory distress, No chest tender , No chest expansion is symmetric; chest is bilaterally symmetric; No lungs clear to percussion; lungs clear to auscultation; No crackles, No rhonchi, No rales, No stridor, No wheezing, No pleural rub, No other Cardiovascular: regular rate-rhythm; No irregularly irregular, No extra beats, No parasternal heave is noted, No JVD, No edema, No bradycardia, No tachycardia , No point of maximal impulse, No cardiac thrills are palpable; S1 and S2; No gallop/S3, No gallop/S4, No diastolic murmur, No systolic murmur, No friction rub, No click, No other Gastrointestinal: No tender, No soft, No round, No distended, No pulsatile mass , No organomegaly, No guarding, No rebound, No tenderness, No hernia, No mass, No audible bowel sounds, No abnormal bowel sounds, No abdominal bruits, No spleenomegaly, No other Rectal: deferred Extremities: No normal range of motion, No non-tender, No normal inspection, No pedal edema, No calf tenderness, No normal capillary refill, No pelvis stable , No calf tenderness, No inflammation, No pedal edema, No slow capillary refill , No swelling, No other, No abrasion, No clubbing, No cyanosis, No ecchymosis, No laceration, No no lower extremity edema bilateral, No significant edema, No tenderness, No wound Neurologic/Psychiatric: no motor/sensory deficits, alert, normal mood/affect, oriented x 3, power is 5/5 both on sides Skin: No normal color, No warm/dry, No cyanosis, No cool, No diaphoresis, No damp, No ecchymosis, No jaundice, No mottled, No pallor, No rash, No tattoos/ piercings, No ulcerations, No rash on exposed areas, No ulcerations on exposed areas, No other Data Review Labs Laboratory Tests 03/07/18 20:52: White Blood Count 6.4, Red Blood Count 5.12, Hemoglobin 12.9, Hematocrit 38, Mean Corpuscular Volume 75L, Mean Corpuscular Hemoglobin 25, Mean Corpuscular Hemoglobin Concent 34, Red Cell Distribution Width 14.9H, Platelet Count 347, Mean Platelet Volume 9.4, Neutrophils (%) (Auto) 55, Lymphocytes (%) (Auto) 34, Monocytes (%) (Auto) 6, Eosinophils (%) (Auto) 5, Basophils (%) (Auto) 1, Neutrophils # (Auto) 3.5, Lymphocytes # (Auto) 2.2, Monocytes # (Auto) 0.4, Eosinophils # (Auto) 0.3, Basophils # (Auto) 0.0, Prothrombin Time 11.8L, INR Comment 0.9, Activated Partial Thromboplast Time 30, Sodium Level 131L, Potassium Level 3.9, Chloride Level 97L, Carbon Dioxide Level 16L, Anion Gap 18H , Blood Urea Nitrogen 8, Creatinine 0.97, Estimat Glomerular Filtration Rate > 60, BUN/Creatinine Ratio 8, Glucose Level 543*H, Calcium Level 9.6, Corrected Calcium 9.6, Magnesium Level 2.5H, Total Bilirubin 0.4, Aspartate Amino Transf ( AST/SGOT) 18, Alanine Aminotransferase (ALT/SGPT) 23, Alkaline Phosphatase 205H , Myoglobin 13.8, Troponin I < 0.30, Total Protein 8.4H, Albumin 4.0 03/07/18 20:59: Glucometer 441*H 03/07/18 22:37: Glucometer 211H 03/08/18 03:41: Myoglobin 10.3, Troponin I < 0.30, Total Creatine Kinase 25L 03/08/18 05:12: Glucometer 260H 03/08/18 05:30: White Blood Count 7.2, Red Blood Count 4.43, Hemoglobin 11.1L, Hematocrit 34L, Mean Corpuscular Volume 76L, Mean Corpuscular Hemoglobin 25, Mean Corpuscular Hemoglobin Concent 33, Red Cell Distribution Width 14.7H, Platelet Count 266, Mean Platelet Volume 9.1, Neutrophils (%) (Auto) 51, Lymphocytes (%) (Auto) 37, Monocytes (%) (Auto) 6, Eosinophils (%) (Auto) 6, Basophils (%) (Auto) 0, Neutrophils # (Auto) 3.7, Lymphocytes # (Auto) 2.6, Monocytes # (Auto) 0.5, Eosinophils # (Auto) 0.4H, Basophils # (Auto) 0.0, Sodium Level 137, Potassium Level 3.8, Chloride Level 107, Carbon Dioxide Level 21, Anion Gap 9, Blood Urea Nitrogen 12, Creatinine 0.61, Estimat Glomerular Filtration Rate > 60, BUN/ Creatinine Ratio 20, Glucose Level 266H, Calcium Level 8.2L, Corrected Calcium 8.8, Total Bilirubin 0.4, Aspartate Amino Transf (AST/SGOT) 12, Alanine Aminotransferase (ALT/SGPT) 18, Alkaline Phosphatase 141H, Total Protein 6.1L, Albumin 3.3, Triglycerides Level 406H, Cholesterol Level 205H, LDL Cholesterol Direct 90, VLDL Cholesterol 81H, HDL Cholesterol 30L 03/08/18 09:34: Glucometer 166H 03/08/18 11:45: Triglycerides Level 353H, Cholesterol Level 211H, LDL Cholesterol Direct 109, VLDL Cholesterol 71H, HDL Cholesterol 32L, Myoglobin 9.9L, Troponin I < 0.30 03/08/18 14:40: Glucometer 173H ECG Impression ECG Initial ECG Rhythm: Normal Sinus Initial ECG Impression: Nonspecific Changes A/P-Cardiology Assessment/Admission Diagnosis Unstable angina, History of CAD/PCI, Diabetes, Active smoking, Hypertension, Hyperlipidemia Plan Unstable angina, 2 sets of enzymes are negative. EKG does not show acute ST deviation. However the patient is having severe chest pain 10/10, refractory to 3 nitroglycerin and morphine. Recent drug-eluting stent within the last 6-8 months. I've discussed at length with the patient and family and recommended coronary angiography. Coronary angiography will be performed this afternoon. I will recommend an echocardiogram. History of CAD/PCI, continue dual antiplatelet therapy. Diabetes, Active smoking, smoking cessation was strongly recommended. Hypertension, continue current antihypertensive therapy. Hyperlipidemia, patient is on statin however LDL is 109 which is significantly elevated. Target LDL between 5070. Thank you for your consultation. Please call me if you have any questions. Jose Elias Roque MD, FACP, FACC, FSCAI, FHRS, CCDS Interventional Cardiology Cardiac Electrophysiology Vascular Medicine and Endovascular Interventions Clinical Quality Measures AMI/AHF: ASA po Prior to arrival: Yes DVT/VTE Risk/Contraindication: Risk Factor Score Per Nursin RFS Level Per Nursing on Admit: 2=Moderate Lynn ROQUE MD Mar 08, 2018 2:44 pm
--- NOTE | 2018-03-08 15:34 | Cardiac Procedure Note-CS/ASA ---
Pre-Procedure Note Pre-Op Procedure Note H&P Reviewed The H&P was reviewed, patient examined and no changes noted. Date H&P Reviewed: Mar 08, 2018 Time H&P Reviewed: 15:34 Conscious Sedation Pre-Proced Time 15:34 ASA Score 3 For ASA 3 and 4: Consider anesthesia and medical clearance. Also, for patients with a history of failed moderate sedation consider anesthesia. Airway Lungs Heart ASA score ASA 1: a normal healthy patient ASA 2: a patient with a mild systemic disease (mid diabetes, controlled hypertension, obesity ASA 3: a patient with a severe systemic disease that limits activity (angina , COPD, prior Myocardial infarction) ASA 4: a patient with an incapacitating disease that is a constant threat to life (CHF, renal failure) ASA 5: a moribund patient not expected to survive 24 hrs. (ruptured aneurysm) ASA 6: a declared brain patient whose organs are being harvested. For emergent operations, add the letter E after the classification Mallampati Classification Grade 1 Sedation Plan Analgesia, Amnesia, Plan communicated to team members, Discussed options with patient/fam, Discussed risks with patient/fam The patient is an appropriate candidate to undergo the planned procedure, sedation, and anesthesia. The patient immediately re-assessed prior to indication. Lynn ROQUE MD Mar 08, 2018 3:34 pm
[2018-03-08] MEDS ORDERED: MIDAZOLAM 5 MG/5 ML (VERSED) VIAL ONE (16:19)
[2018-03-08] MEDS ORDERED: LIDOCAINE 1% INJ 20 ML 20 ML VIAL ONE (16:19)
[2018-03-08] MEDS ORDERED: fentaNYL INJECTION 100 MCG/2 ML AMP ONE (16:19)
[2018-03-08] MEDS ORDERED: NS IV 1000 ML 1,000 ML ONE (16:19)
[2018-03-08] MEDS ORDERED: HEParin (CATH LAB) 2,000 ML IV ONE (16:22)
[2018-03-08] MEDS ORDERED: HEParin 1000 UNIT/ML (10ML VIAL) FOR BOLUS ONE (17:03)
[2018-03-08] MEDS ORDERED: NITRO DRIP 25000 MCG/D5W 250 ML IV ONE (17:03)
[2018-03-08] MEDS ORDERED: VERAPAMIL 5 MG/2 ML (CALAN) VIAL IV ONE (17:03)
[2018-03-08] MEDS ORDERED: ADENOSINE 3 MG/1 ML (ADENOSCAN) 30ML VIAL IV ONE ×2 (17:34→17:47)
--- NOTE | 2018-03-08 17:52 | History & Physicial (CHS) ---
HPI History of Present Illness: 38 yo F with uncontrolled DM that presents to ER with chest pain. States that she has been having chest pain on and off all night. Activity worsens chest pain. Nitro resolved chest pain. States that she has a h/o stent placement earlier this year. For the last week her blood sugars have been more difficult to control. Recently took antibiotics and steroids for bronchitis per patient. Source: patient, family (BF), old records Exam Limitations: no limitations Date seen by provider: Mar 08, 2018 Time Seen by Provider: 11:30 Attending Physician Bri Muñoz MD PCP [facility] [place] Consult Date of Admission Mar 07, 2018 at 22:55 Home Medications Home Medications Reviewed patient Home Medication Reconciliation performed by pharmacy medication reconciliations explosive ordnance technician and/or nursing. Patients Allergies have been reviewed. Allergies Coded Allergies: coconut (Verified Allergy, Severe, anaphylactic reaction, 07/11/17) ketorolac (Unverified Allergy, Unknown, 08/19/15) KJX-[id number]-[id number] Hx Patient Social History Alcohol Use: Denies Use Recreational Drug Use: No Smoking Status: Current Everyday Smoker Type Used: Cigarettes 2nd Hand Smoke Exposure: Yes Recent Foreign Travel: No Contact w/other who traveled: No Recent Hopitalizations: No Recent Infectious Disease Expo: No Physical Abuse Screen: No Sexual Abuse: No Immunizations Up To Date Tetanus Booster (TDap): Unknown Date of Pneumonia Vaccine: September 09, 2016 Past Medical History PMHx: Diabetes type 2, Uncontrolled HTN HLD CAD with stent placement x1, 2017 Surgical: x 3 I&D of left breast cyst Back surgery - discectomy Family Medical History Significant Family History: Heart Disease, Diabetes, Other Conditions/Hx Family History: Cardiovascular disease 19 FATHER, Onset:Unknown 19 MOTHER, Onset:Unknown Diabetes mellitus 19 FATHER 19 MOTHER Review of Systems (CHC) Constitutional: no symptoms reported; No chills, No fever, No weakness EENTM: no symptoms reported; No nose congestion, No throat pain, No throat swelling Respiratory: no symptoms reported; No cough, No dyspnea on exertion, No orthopnea, No short of breath Cardiovascular: chest pain; No edema, No palpitations Gastrointestinal: no symptoms reported; No abdominal pain, No constipation, No diarrhea, No nausea, No vomiting Genitourinary: no symptoms reported; No dysuria, No frequency, No hematuria : No Musculoskeletal: muscle pain Skin: no symptoms reported; No lesions, No rash Psychiatric/Neurological: No Symptoms Reported; Denies Anxiety, Denies Depressed Reviewed Test Results Reviewed Test Results Lab Laboratory Tests Test 03/07/18 20:52 03/07/18 20:59 03/07/18 22:37 03/08/18 03:41 Range/Units White Blood Count 6.4 4.3-11.0 10^3/uL Red Blood Count 5.12 4.35-5.85 10^6/uL Hemoglobin 12.9 11.5-16.0 G/DL Hematocrit 38 35-52 % Mean Corpuscular Volume 75 L 80-99 FL Mean Corpuscular Hemoglobin 25 25-34 PG Mean Corpuscular Hemoglobin Concent 34 32-36 G/DL Red Cell Distribution Width 14.9 H 10.0-14.5 % Platelet Count 347 130-400 10^3/uL Mean Platelet Volume 9.4 7.4-10.4 FL Neutrophils (%) (Auto) 55 42-75 % Lymphocytes (%) (Auto) 34 12-44 % Monocytes (%) (Auto) 6 0-12 % Eosinophils (%) (Auto) 5 0-10 % Basophils (%) (Auto) 1 0-10 % Neutrophils # (Auto) 3.5 1.8-7.8 X 10^3 Lymphocytes # (Auto) 2.2 1.0-4.0 X 10^3 Monocytes # (Auto) 0.4 0.0-1.0 X 10^3 Eosinophils # (Auto) 0.3 0.0-0.3 10^3/uL Basophils # (Auto) 0.0 0.0-0.1 10^3/uL Prothrombin Time 11.8 L 12.2-14.7 SEC INR Comment 0.9 0.8-1.4 Activated Partial Thromboplast Time 30 24-35 SEC Sodium Level 131 L 135-145 MMOL/L Potassium Level 3.9 3.6-5.0 MMOL/L Chloride Level 97 L 98-107 MMOL/L Carbon Dioxide Level 16 L 21-32 MMOL/L Anion Gap 18 H 5-14 MMOL/L Blood Urea Nitrogen 8 7-18 MG/DL Creatinine 0.97 0.60-1.30 MG/DL Estimat Glomerular Filtration Rate > 60 BUN/Creatinine Ratio 8 Glucose Level 543 *H 70-105 MG/DL Calcium Level 9.6 8.5-10.1 MG/DL Corrected Calcium 9.6 8.5-10.1 MG/DL Magnesium Level 2.5 H 1.8-2.4 MG/DL Total Bilirubin 0.4 0.1-1.0 MG/DL Aspartate Amino Transf (AST/SGOT) 18 5-34 U/L Alanine Aminotransferase (ALT/SGPT) 23 0-55 U/L Alkaline Phosphatase 205 H 40-136 U/L Myoglobin 13.8 10.3 10.0-92.0 NG/ML Troponin I < 0.30 < 0.30 <0.30 NG/ML Total Protein 8.4 H 6.4-8.2 GM/DL Albumin 4.0 3.2-4.5 GM/DL Glucometer 441 *H 211 H 70-110 MG/DL Total Creatine Kinase 25 L 29-168 U/L Test 03/08/18 05:12 03/08/18 05:30 03/08/18 09:34 03/08/18 11:45 Range/Units Glucometer 260 H 166 H 70-110 MG/DL White Blood Count 7.2 4.3-11.0 10^3/uL Red Blood Count 4.43 4.35-5.85 10^6/uL Hemoglobin 11.1 L 11.5-16.0 G/DL Hematocrit 34 L 35-52 % Mean Corpuscular Volume 76 L 80-99 FL Mean Corpuscular Hemoglobin 25 25-34 PG Mean Corpuscular Hemoglobin Concent 33 32-36 G/DL Red Cell Distribution Width 14.7 H 10.0-14.5 % Platelet Count 266 130-400 10^3/uL Mean Platelet Volume 9.1 7.4-10.4 FL Neutrophils (%) (Auto) 51 42-75 % Lymphocytes (%) (Auto) 37 12-44 % Monocytes (%) (Auto) 6 0-12 % Eosinophils (%) (Auto) 6 0-10 % Basophils (%) (Auto) 0 0-10 % Neutrophils # (Auto) 3.7 1.8-7.8 X 10^3 Lymphocytes # (Auto) 2.6 1.0-4.0 X 10^3 Monocytes # (Auto) 0.5 0.0-1.0 X 10^3 Eosinophils # (Auto) 0.4 H 0.0-0.3 10^3/uL Basophils # (Auto) 0.0 0.0-0.1 10^3/uL Sodium Level 137 135-145 MMOL/L Potassium Level 3.8 3.6-5.0 MMOL/L Chloride Level 107 98-107 MMOL/L Carbon Dioxide Level 21 21-32 MMOL/L Anion Gap 9 5-14 MMOL/L Blood Urea Nitrogen 12 7-18 MG/DL Creatinine 0.61 0.60-1.30 MG/DL Estimat Glomerular Filtration Rate > 60 BUN/Creatinine Ratio 20 Glucose Level 266 H 70-105 MG/DL Calcium Level 8.2 L 8.5-10.1 MG/DL Corrected Calcium 8.8 8.5-10.1 MG/DL Total Bilirubin 0.4 0.1-1.0 MG/DL Aspartate Amino Transf (AST/SGOT) 12 5-34 U/L Alanine Aminotransferase (ALT/SGPT) 18 0-55 U/L Alkaline Phosphatase 141 H 40-136 U/L Total Protein 6.1 L 6.4-8.2 GM/DL Albumin 3.3 3.2-4.5 GM/DL Triglycerides Level 406 H 353 H <150 MG/DL Cholesterol Level 205 H 211 H < 200 MG/DL LDL Cholesterol Direct 90 109 1-129 MG/DL VLDL Cholesterol 81 H 71 H 5-40 MG/DL HDL Cholesterol 30 L 32 L 40-60 MG/DL Myoglobin 9.9 L 10.0-92.0 NG/ML Troponin I < 0.30 <0.30 NG/ML Test 03/08/18 14:40 Range/Units Glucometer 173 H 70-110 MG/DL Radiology Date of Exam: 03/07/18 CHEST 1 VIEW, AP/PA ONLY INDICATION: Chest pain for last 24 hours. Left-sided arm pain. EXAMINATION: Chest dated 03/07/2018. COMPARISON: 02/20/2018. FINDINGS: The cardiomediastinal silhouette is unremarkable. The pulmonary vasculature is within normal limits. The lungs and pleural spaces are clear. IMPRESSION: No evidence of an acute cardiopulmonary process Physical Exam-(CHC) Physical Exam Vital Signs VS - Last 72 Hours, by Label 03/07/18 03/07/18 03/08/18 03/08/18 20:45 20:45 00:30 00:45 Temp 98.8 98.8 98.2 Pulse 115 115 95 Resp 19 19 20 B/P (MAP) 127/105 (112) 121/85 (97) 134/90 (105) Pulse Ox 98 97 O2 Delivery Room Air Room Air Room Air Room Air 03/08/18 03/08/18 03/08/18 03/08/18 01:00 01:15 01:30 01:35 Pulse 100 100 98 B/P (MAP) 137/89 (105) 137/89 (105) 139/88 (105) Pulse Ox 97 95 91 O2 Delivery Room Air Room Air Room Air 03/08/18 03/08/18 03/08/18 03/08/18 01:45 02:15 02:45 03:19 Pulse 102 101 102 95 B/P (MAP) 126/80 (95) 111/74 (86) 116/80 (92) Pulse Ox 96 94 95 O2 Delivery Room Air Room Air Room Air 03/08/18 03/08/18 03/08/18 03/08/18 03:45 04:45 07:00 08:00 Pulse 102 95 96 B/P (MAP) 114/73 (87) 112/74 (87) Pulse Ox 95 96 96 O2 Delivery Room Air Room Air 03/08/18 03/08/18 03/08/18 03/08/18 08:00 12:00 13:00 16:00 Temp 98.4 98.4 98.0 Pulse 99 83 81 97 Resp 18 16 18 B/P (MAP) 120/76 (91) 109/65 (80) 112/83 (93) Pulse Ox 97 96 96 O2 Delivery Room Air Room Air Room Air Capillary Refill : Less Than 3 Seconds General Appearance: WD/WN, no apparent distress HEENT: PERRL/EOMI Neck: non-tender, full range of motion, supple Respiratory: chest non-tender, lungs clear, normal breath sounds, no respiratory distress, no accessory muscle use Cardiovascular: normal peripheral pulses, regular rate, rhythm, no edema, no murmur Gastrointestinal: normal bowel sounds, non tender, soft, no organomegaly Back: no CVA tenderness, no vertebral tenderness Extremities: normal range of motion, non-tender, no pedal edema, no calf tenderness, normal capillary refill Neurologic/Psychiatric: outsole leveler II-XII nml as tested, no motor/sensory deficits, alert, normal mood/affect, oriented x 3 Skin: normal color, warm/dry Lymphatic: no adenopathy Assessment/Plan Assessment/Plan Admission Status: Observation (1) Chest pain Status: Acute Assessment & Plan: - Consult Cardiology, plan for cath in AM if troponins remain negative, Continue ASA and plavix Qualifiers: Qualified Codes: R07.9 - Chest pain, unspecified (2) CAD (coronary artery disease) Status: Chronic Qualifiers: Qualified Codes: I25.118 - Atherosclerotic heart disease of [place] coronary artery with other forms of angina pectoris (3) Insulin dependent diabetes mellitus with complications Status: Chronic Assessment & Plan: - Will adjust insulin as needed, SSI A, Accuchecks qACHS, A1c pending (4) Hypertension Status: Chronic Assessment & Plan: - Continue home meds Qualifiers: Qualified Codes: I10 - Essential (primary) hypertension (5) Peripheral neuropathy Status: Chronic Qualifiers: Qualified Codes: G63 - Polyneuropathy in diseases classified elsewhere (6) HLD (hyperlipidemia) Status: Chronic Assessment & Plan: - Continue statin due to HLD, CAD, DM Qualifiers: Qualified Codes: E78.2 - Mixed hyperlipidemia (7) Tobacco abuse Status: Chronic Assessment & Plan: - Discussed the need for cessation (8) DVT prophylaxis Status: Acute Assessment & Plan: - SCDs due to Cath tomorrow Clinical Quality Measures AMI/AHF: ASA po Prior to arrival: Yes DVT/VTE Risk/Contraindication: Risk Factor Score Per Nursin RFS Level Per Nursing on Admit: 2=Moderate Copy Copies To 1: BRI YODER MD Mar 08, 2018 17:52
[2018-03-08] MEDS ORDERED: TICAGRELOR 90 MG TABLET (BRILINTA) PO ONE (18:17)
[2018-03-08] MEDS ORDERED: PATIENT MAY USE OWN MEDS, ALL PO SCH (19:00)
--- NOTE | 2018-03-08 19:13 | Coronary Angiography & PCI ---
Coronary Angiography & PCI DATE OF PROCEDURE: 03/08/18 INDICATION: Unstable angina, recurrent prolonged chest pain refractory to medical therapy. PREOPERATIVE DIAGNOSIS: Unstable angina, recurrent prolonged chest pain refractory to medical therapy. POSTOPERATIVE DIAGNOSIS: Successful PCI to the proximal and mid LAD with 2 drug- eluting stents. HISTORY: His is a 38-year-old lady with history of type II diabetes, active smoking, hypertension, hyperlipidemia. She has previous history of CAD and PCI done by Dr. Benoit with a 2.25 x 15 mm drug-eluting stent in the mid LAD. She presented with chest pain in November [address] Hernandez did an angiogram which did not reveal any severe focal stenosis. She presents again with recurrent chest pain for the last 2 days, however she had severe chest pain today. 10 out of 10 with no significant improvement with 3 nitroglycerin sublingual. Morphine gave her some relief. Troponin was negative. EKG did not reveal any significant ST deviation. Working diagnosis is unstable angina/acute coronary syndrome. Therefore, the patient was scheduled for coronary angiography. PROCEDURES PERFORMED: 1.Coronary angiography. 2.Left heart catheterization. 3. FFR to the LAD. 3. PCI to the proximal and mid LAD with 2 drug-eluting stents. COMPLICATIONS: None. SPECIMENS: None. ESTIMATED BLOOD LOSS: 30 mL ANESTHESIA: Conscious sedation ANTICOAGULATION: IV heparin CONTRAST: 147 mL. FLUOROSCOPY: 26.7 minutes. FLOUROSCOPY DOSE: 1239 mgy. PROCEDURE DETAILS: The patient is a 38 female and was brought to the laboratory animal caretaker after informed consent was taken. All the risks and complications were explained in detail; this included the risk of bleeding, vascular damage, stroke , [place] and even . The patient was draped and prepped in the usual sterile fashion. Access was gained in the right radial artery with a 6 [place] sheath. Coronary angiography and left heart catheterization was performed with the [place] catheter. FINDINGS: 1.Left main: Patent. 2.LAD: Severe diffuse disease in the ostium/proximal LAD. Stenosis severity is 70-80 percent. Patent stent in the mid LAD. Distal to the mid LAD stent there is moderate to severe stenosis. Stenosis severity is 70 percent. A first diagonal artery has pinched ostium. 3.Left circumflex artery: Ramus intermedius branch does not have any focal stenosis. Mild disease in the rest of the left circumflex artery. 4.RCA: Mild disease with no significant focal stenosis. 5.Left heart catheterization: Aortic pressure 82/56 mmHg, LV pressure 62/7 mmHg. LVEDP 19 mmHg. Normal LV function with no wall motion abnormalities. No gradient across the aortic valve. RECOMMENDATIONS: 1. FFR to the LAD is recommended. 2. PCI to the ostial, proximal, mid LAD is recommended. INTERVENTION DETAILS: FFR was done using the same diagnostic catheter which was the [place] catheter. We took a FFR wire. IV heparin was given for anticoagulation. ACT was 233 seconds. ACT was done only once. The lesion was crossed with a FFR wire. The tip of the FFR wire was placed in the distal LAD. Adenosine was started at 140 g per KG per minute. Lowest FFR was 0.68 which is significantly abnormal therefore PCI is recommended. We took the diagnostic catheter and advanced an EBU 3.5 guide catheter. Brilinta 180 mg by mouth was given before starting the PCI. The same pressure wire was used to cross the lesion again. We took a Xience Madonna 2.25 x 15 mm drug-eluting stent and deployed it just distal to the previous mid LAD stent at 10 charbel for 32 seconds. The stent balloon was pulled back and the overlap region was postdilated at 16 charbel for 25 seconds. Excellent results. We'll checked a baseline FFR which was still 0.790.80. We therefore took a Xience Madonna 2.5 x 38 mm drug-eluting stent and placed it from the ostial LAD till a small overlap with the previous mid LAD stent. The stent was deployed first at 14 charbel for 25 seconds and then we went up to 16 charbel for 11 seconds. The overlap area was also postdilated. The stent balloon was taken out and post-angiogram revealed excellent results with no residual stenosis and WHIT-3 flow distally. Baseline FFR without adenosine was 1.00. Subsequently the wire was taken out with excellent results and no vascular complications. A wrist band was placed. CONCLUSIONS: 1. Unstable angina/acute coronary syndrome, severe ostial/proximal/mid LAD stenosis with severely abnormal FFR treated successfully with 2 stents. 2. Dual antiplatelet therapy long-term. 3. Continue lisinopril and beta christal. 4. LDL is 109 on Lipitor 80 mg daily. I will add ezetimibe 10 mg daily. Patient will likely require PCSK9 inhibitor as an outpatient. 5. Smoking cessation was strongly recommended. 6. BUN, creatinine and electrolytes in the morning. 7. Echocardiogram. Jose Elias West MD, FACP, FACC, [facility] Interventional Cardiology Lynn WEST MD Mar 08, 2018 7:13 pm
[2018-03-08] MEDS ORDERED: fentaNYL INJECTION 100 MCG/2 ML AMP IVP PRN (20:45)
[2018-03-08] MEDS ORDERED: fentaNYL INJECTION 100 MCG/2 ML AMP IVP ONE (20:45)
[2018-03-08] MEDS: TICAGRELOR 90 MG TABLET (BRILINTA) PO SCH (21:11)
[2018-03-08] MEDS: eZETimibe 10 MG (ZETIA) TABLET PO SCH (21:12)
[2018-03-08] MEDS: ATORVASTATIN 80 MG (LIPITOR) TABLET PO SCH (21:12)
[2018-03-09] MEDS: NS IV 1000 ML 1,000 ML IV SCH ×4 (00:16→22:47)
[2018-03-09 00:55] VITALS: BP 123/75
[2018-03-09 02:00] VITALS: BP 138/88
[2018-03-09 04:00] VITALS: BP 136/81
[2018-03-09] MEDS: inSUlin ASPART (NovoLOG) 1 UNIT/0.01 ML (CHARGE PER UNIT) SC SCH ×4 (05:37→19:06)
[2018-03-09] MEDS: PANTOPRAZOLE 40 MG (PROTONIX) TAB PO SCH (05:38)
[2018-03-09] MEDS: CATHETER FLUSH 10 ML SYR IV SCH ×3 (05:38→22:46)
[2018-03-09] MEDS: morphine INJ 4 MG/ML 1 ML (VIAL/SYRINGE) IV PRN ×3 (06:19→19:19)
[2018-03-09 07:00] LABS: BASOPHILS % (AUTO) 0 % (0-10); EOSINOPHILS # (AUTO) 0.3 10^3/uL (0.0-0.3); EOSINOPHILS % (AUTO) 4 % (0-10); HEMATOCRIT 32 % (35-52); HEMOGLOBIN 10.6 G/DL (11.5-16.0); LYMPHOCYTES # (AUTO) 1.6 X 10^3 (1.0-4.0); LYMPHOCYTES % (AUTO) 25 % (12-44); MEAN CORPUSCULAR HEMOGLOBIN 25 PG (25-34); MEAN CORPUSCULAR HGB CONC 33 G/DL (32-36); MEAN CORPUSCULAR VOLUME 76 FL (80-99); MEAN PLATELET VOLUME 9.1 FL (7.4-10.4); MONOCYTES # (AUTO) 0.3 X 10^3 (0.0-1.0); MONOCYTES % (AUTO) 5 % (0-12); NEUTROPHILS # (AUTO) 4.2 X 10^3 (1.8-7.8); NEUTROPHILS % (AUTO) 66 % (42-75); PLATELET COUNT 294 10^3/uL (130-400); RED CELL DISTRIBUTION WIDTH 15.3 % (10.0-14.5); WHITE BLOOD COUNT 6.4 10^3/uL (4.3-11.0)
[2018-03-09 07:21] LABS: ALANINE AMINOTRANSFERASE 22 U/L (0-55); ALBUMIN 3.1 GM/DL (3.2-4.5); ALKALINE PHOSPHATASE 121 U/L (40-136); BILIRUBIN,TOTAL 0.6 MG/DL (0.1-1.0); BUN/CREATININE RATIO 15; CALCIUM 8.4 MG/DL (8.5-10.1); CARBON DIOXIDE 17 MMOL/L (21-32); CHLORIDE 105 MMOL/L (98-107); CREATININE SERUM 0.61 MG/DL (0.60-1.30); GFR ESTIMATED > 60; GLUCOSE 231 MG/DL (70-105); POTASSIUM 3.4 MMOL/L (3.6-5.0); SODIUM 135 MMOL/L (135-145); TOTAL PROTEIN 6.2 GM/DL (6.4-8.2)
[2018-03-09] MEDS: NITROGLYCERIN 0.4 MG SL TABS BTL 25'S SL PRN (08:11)
[2018-03-09] MEDS ORDERED: ASPIRIN 81 MG CHEW (CHILDREN'S ASA) PO SCH (09:00)
[2018-03-09] MEDS: lisINopril 5 MG (PRINIVIL) TABLET PO SCH (11:37)
[2018-03-09] MEDS: ASPIRIN E.C. 81 MG (ECOTRIN) TAB PO SCH (11:37)
[2018-03-09] MEDS: TICAGRELOR 90 MG TABLET (BRILINTA) PO SCH ×2 (11:37→21:15)
[2018-03-09 12:00] VITALS: BP 122/81
--- NOTE | 2018-03-09 12:01 | Cardiology Progress Note ---
Cardiology SOAP Progress Note Subjective: Chest pain. Objective: I&O/Vital Signs 03/09/18 03/09/18 03/09/18 03/09/18 00:55 01:00 02:00 04:00 Temp 98.7 99.0 99.3 Pulse 99 94 98 84 Resp 16 18 20 B/P (MAP) 123/75 (91) 138/88 (105) 136/81 (99) Pulse Ox 99 98 97 O2 Delivery Room Air Room Air 03/09/18 03/09/18 03/09/18 03/09/18 07:00 08:15 08:16 08:17 Pulse 99 0 0 0 03/09/18 03/09/18 03/09/18 03/09/18 08:17 08:18 08:52 08:58 Temp 99.6 Pulse 0 37 0 03/09/18 09:55 Pulse 0 03/09/18 00:00 Intake Total 150 ml Output Total 1200 ml Balance -1050 ml Weight (Pounds): 161 Weight (Ounces): 7.0 Weight (Calculated Kilograms): 73.048346 Constitutional: appears stated age, AAO x 3; No apparent distress; well- developed, well-nourished Respiratory: No accessory muscle use, No respiratory distress, No chest tender , No chest expansion is symmetric; chest is bilaterally symmetric; No lungs clear to percussion; lungs clear to auscultation; No crackles, No rhonchi, No rales, No stridor, No wheezing, No pleural rub, No other Cardiovascular: regular rate-rhythm; No irregularly irregular, No extra beats, No parasternal heave is noted, No JVD, No edema, No bradycardia, No tachycardia , No point of maximal impulse, No cardiac thrills are palpable; S1 and S2; No gallop/S3, No gallop/S4, No diastolic murmur, No systolic murmur, No friction rub, No click, No other Gastrointestional: No tender, No soft, No round, No distended, No pulsatile mass, No organomegaly, No guarding, No rebound, No tenderness, No hernia, No mass, No audible bowel sounds, No abnormal bowel sounds, No abdominal bruits, No spleenomegaly, No other Extremities: No normal range of motion, No non-tender, No normal inspection, No pedal edema, No calf tenderness, No normal capillary refill, No pelvis stable , No calf tenderness, No inflammation, No pedal edema, No slow capillary refill , No swelling, No other, No abrasion, No clubbing, No cyanosis, No ecchymosis, No laceration, No no lower extremity edema bilateral, No significant edema, No tenderness, No wound Neurologic/Psychiatric: no motor/sensory deficits, alert, normal mood/affect, oriented x 3, power is 5/5 both on sides Skin: No normal color, No warm/dry, No cyanosis, No cool, No diaphoresis, No damp, No ecchymosis, No jaundice, No mottled, No pallor, No rash, No tattoos/ piercings, No ulcerations, No rash on exposed areas, No ulcerations on exposed areas, No other Results/Procedures: Labs Laboratory Tests 03/08/18 14:40: Glucometer 173H 03/08/18 22:32: Glucometer 277H 03/09/18 05:18: Glucometer 287H 03/09/18 06:45: White Blood Count 6.4, Red Blood Count 4.20L, Hemoglobin 10.6L, Hematocrit 32L, Mean Corpuscular Volume 76L, Mean Corpuscular Hemoglobin 25, Mean Corpuscular Hemoglobin Concent 33, Red Cell Distribution Width 15.3H, Platelet Count 294, Mean Platelet Volume 9.1, Neutrophils (%) (Auto) 66, Lymphocytes (%) (Auto) 25, Monocytes (%) (Auto) 5, Eosinophils (%) (Auto) 4, Basophils (%) (Auto) 0, Neutrophils # (Auto) 4.2, Lymphocytes # (Auto) 1.6, Monocytes # (Auto) 0.3, Eosinophils # (Auto) 0.3, Basophils # (Auto) 0.0, Sodium Level 135, Potassium Level 3.4L, Chloride Level 105, Carbon Dioxide Level 17L, Anion Gap 13, Blood Urea Nitrogen 9, Creatinine 0.61, Estimat Glomerular Filtration Rate > 60, BUN/ Creatinine Ratio 15, Glucose Level 231H, Calcium Level 8.4L, Corrected Calcium 9.1, Total Bilirubin 0.6, Aspartate Amino Transf (AST/SGOT) 18, Alanine Aminotransferase (ALT/SGPT) 22, Alkaline Phosphatase 121, Troponin I < 0.30, Total Protein 6.2L, Albumin 3.1L 03/09/18 09:50: Glucometer 171H 03/09/18 11:41: A/P: Assessment/Dx: Chest pain, status post PCI History of CAD/PCI, Diabetes, Active smoking, Hypertension, Hyperlipidemia Plan: Chest pain, status post coronary angiography yesterday. FFR of the LAD was significantly abnormal therefore PCI was performed. Recurrent chest pain with breathing. Negative serial troponin. Negative EKG. Very likely noncoronary chest pain. NSAIDs are recommended, could be pericarditis. Defer to Dr. Muñoz. Echocardiogram History of CAD/PCI, continue dual antiplatelet therapy. Diabetes, Active smoking, smoking cessation was strongly recommended. Hypertension, continue current antihypertensive therapy. Hyperlipidemia, patient is on statin however LDL is 109 which is significantly elevated. Target LDL between 5070. Ezetimibe started. Patient will follow with Dr. Benoit. Thank you for your consultation. Please call me if you have any questions. Jose Elias West MD, FACP, FACC, FSCAI, FHRS, CCDS Interventional Cardiology Cardiac Electrophysiology Vascular Medicine and Endovascular Interventions Clinical Quality Measures AMI/AHF: ASA po Prior to arrival: Yes Lynn WEST MD Mar 09, 2018 12:01 pm
[2018-03-09] MEDS: IBUPROFEN 800 MG (MOTRIN) TAB PO SCH ×2 (15:21→21:15)
[2018-03-09 16:31] VITALS: BP 119/70
[2018-03-09 19:44] VITALS: BP 127/75
[2018-03-09] MEDS ORDERED: NS 250 ML (IVPB) BAG IV ONE (20:30)
[2018-03-09] MEDS ORDERED: CATHETER FLUSH 10 ML SYR IV PRN (20:30)
[2018-03-09] MEDS ORDERED: RECEIVED CONTRAST (Hold Metformin) IV SCH (20:30)
[2018-03-09] MEDS ORDERED: IOHEXOL 350 MG/ML 100 ML (OMNIPAQUE 350) VIAL IV ONE (20:30)
--- NOTE | 2018-03-09 20:40 | Progress Note (SOAP) ---
Subjective Subjective/Events-last exam Patient sitting comfortably in bed. States that she is still having 10/10 chest pain. ECGs and Trops have been normal all night. Tolerating PO diet. Denies any N/V or abdominal pain. No reflux symptoms. No pain in either arm. Review of Systems Date Seen by Provider: Mar 09, 2018 Time Seen by Provider: 11:00 HEENT: No Sinus Congestion Pulmonary: No Dyspnea, No Cough Cardiovascular: Chest Pain, Palpitations Gastrointestinal: No: Nausea, Vomiting, Abdominal Pain, Diarrhea, Constipation Musculoskeletal: No: neck pain, arm pain, back pain Neurological: No: Weakness, Numbness Objective Exam Last Set of Vital Signs Vital Signs Date Time Temp Pulse Resp B/P (MAP) Pulse Ox O2 Delivery O2 Flow Rate FiO2 03/09/18 19:44 99.1 98 22 127/75 (92) 96 Room Air Capillary Refill : Less Than 3 Seconds I&O Intake and Output 03/09/18 00:00 Intake Total 150 ml Output Total 1200 ml Balance -1050 ml Intake Oral 150 ml Output Urine Total 1200 ml Daily Weight Change No General: Alert, Oriented X3, Cooperative, No Acute Distress HEENT: Mucous Memb Moist/[place] Lungs: Clear to Auscultation, Normal Air Movement Heart: Regular Rate, No Murmurs Abdomen: Normal Bowel Sounds, Soft, No Tenderness, No Hepatosplenomegaly, No Masses Extremities: No Edema, No Tenderness/Swelling Neuro: Normal Speech, Strength at 5/5 X4 Ext, Sensation Intact, Cranial Nerves 3-12 NL Psych/Mental Status: Mental Status NL, Mood NL Results/Procedures Lab Laboratory Tests 03/08/18 22:32: Glucometer 277H 03/09/18 05:18: Glucometer 287H 03/09/18 06:45: White Blood Count 6.4, Red Blood Count 4.20L, Hemoglobin 10.6L, Hematocrit 32L, Mean Corpuscular Volume 76L, Mean Corpuscular Hemoglobin 25, Mean Corpuscular Hemoglobin Concent 33, Red Cell Distribution Width 15.3H, Platelet Count 294, Mean Platelet Volume 9.1, Neutrophils (%) (Auto) 66, Lymphocytes (%) (Auto) 25, Monocytes (%) (Auto) 5, Eosinophils (%) (Auto) 4, Basophils (%) (Auto) 0, Neutrophils # (Auto) 4.2, Lymphocytes # (Auto) 1.6, Monocytes # (Auto) 0.3, Eosinophils # (Auto) 0.3, Basophils # (Auto) 0.0, Sodium Level 135, Potassium Level 3.4L, Chloride Level 105, Carbon Dioxide Level 17L, Anion Gap 13, Blood Urea Nitrogen 9, Creatinine 0.61, Estimat Glomerular Filtration Rate > 60, BUN/ Creatinine Ratio 15, Glucose Level 231H, Calcium Level 8.4L, Corrected Calcium 9.1, Total Bilirubin 0.6, Aspartate Amino Transf (AST/SGOT) 18, Alanine Aminotransferase (ALT/SGPT) 22, Alkaline Phosphatase 121, Troponin I < 0.30, Total Protein 6.2L, Albumin 3.1L 03/09/18 09:50: Glucometer 171H 03/09/18 11:41: Troponin I < 0.30 03/09/18 14:59: Glucometer 272H 03/09/18 15:50: D-Dimer 0.47 03/09/18 16:34: Glucometer 355H 03/09/18 18:58: Glucometer 410*H Radiology Date of Exam: 03/07/18 CHEST 1 VIEW, AP/PA ONLY INDICATION: Chest pain for last 24 hours. Left-sided arm pain. EXAMINATION: Chest dated 03/07/2018. COMPARISON: 02/20/2018. FINDINGS: The cardiomediastinal silhouette is unremarkable. The pulmonary vasculature is within normal limits. The lungs and pleural spaces are clear. IMPRESSION: No evidence of an acute cardiopulmonary process Assessment/Plan Assessment/Plan (1) Chest pain Status: Acute Assessment & Plan: - Consult Cardiology, plan for cath in AM if troponins remain negative, Continue ASA and plavix 03/09: Patient continues to have 10/10 chest pain but is resting comfortably, ECG and Trops have continued to be neg. D-dimer neg, started on motrin scheduled to treat possible pericarditis, No reflux symptoms, will get CTA due to continued symptoms Qualifiers: Qualified Codes: R07.9 - Chest pain, unspecified (2) CAD (coronary artery disease) Status: Chronic Assessment & Plan: 03/09: Stent placed yesterday Qualifiers: Qualified Codes: I25.118 - Atherosclerotic heart disease of [place] coronary artery with other forms of angina pectoris (3) Insulin dependent diabetes mellitus with complications Status: Chronic Assessment & Plan: - Will adjust insulin as needed, SSI A, Accuchecks qACHS, A1c pending (4) Hypertension Status: Chronic Assessment & Plan: - Continue home meds Qualifiers: Qualified Codes: I10 - Essential (primary) hypertension (5) Peripheral neuropathy Status: Chronic Qualifiers: Qualified Codes: G63 - Polyneuropathy in diseases classified elsewhere (6) HLD (hyperlipidemia) Status: Chronic Assessment & Plan: - Continue statin due to HLD, CAD, DM Qualifiers: Qualified Codes: E78.2 - Mixed hyperlipidemia (7) Tobacco abuse Status: Chronic Assessment & Plan: - Discussed the need for cessation (8) DVT prophylaxis Status: Acute Assessment & Plan: - SCDs due to Cath tomorrow Clinical Quality Measures AMI/AHF: ASA po Prior to arrival: Yes DVT/VTE Risk/Contraindication: Risk Factor Score Per Nursin RFS Level Per Nursing on Admit: 2=Moderate BRI THOMAS MD Mar 09, 2018 20:40
[2018-03-09] MEDS ORDERED: inSUlin DETERMIR 1 UNIT/0.01 ML (LEVEMIR) CHARGE PER UNIT SQ SCH (21:00)
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
[2018-03-09] MEDS: eZETimibe 10 MG (ZETIA) TABLET PO SCH (21:14)
[2018-03-09] MEDS: ATORVASTATIN 80 MG (LIPITOR) TABLET PO SCH (21:14)
[2018-03-09] MEDS ORDERED: IBUPROFEN 800 MG (MOTRIN) TAB PO SCH (22:00)
[2018-03-10 00:54] VITALS: BP 115/66
[2018-03-10] MEDS: morphine INJ 4 MG/ML 1 ML (VIAL/SYRINGE) IV PRN (01:50)
[2018-03-10] MEDS ORDERED: LORazepam 1 MG (ATIVAN) TAB PO PRN (02:30)
[2018-03-10 04:00] VITALS: BP 136/81
[2018-03-10 06:52] LABS: BASOPHILS % (AUTO) 0 % (0-10); EOSINOPHILS # (AUTO) 0.2 10^3/uL (0.0-0.3); EOSINOPHILS % (AUTO) 4 % (0-10); HEMATOCRIT 29 % (35-52); HEMOGLOBIN 9.8 G/DL (11.5-16.0); LYMPHOCYTES # (AUTO) 1.6 X 10^3 (1.0-4.0); LYMPHOCYTES % (AUTO) 35 % (12-44); MEAN CORPUSCULAR HEMOGLOBIN 26 PG (25-34); MEAN CORPUSCULAR HGB CONC 33 G/DL (32-36); MEAN CORPUSCULAR VOLUME 77 FL (80-99); MONOCYTES # (AUTO) 0.4 X 10^3 (0.0-1.0); MONOCYTES % (AUTO) 7 % (0-12); NEUTROPHILS # (AUTO) 2.5 X 10^3 (1.8-7.8); NEUTROPHILS % (AUTO) 54 % (42-75); PLATELET COUNT 245 10^3/uL (130-400); RED BLOOD COUNT 3.82 10^6/uL (4.35-5.85); RED CELL DISTRIBUTION WIDTH 15.4 % (10.0-14.5); WHITE BLOOD COUNT 4.8 10^3/uL (4.3-11.0)
[2018-03-10 07:15] LABS: BUN/CREATININE RATIO 14; CALCIUM 8.3 MG/DL (8.5-10.1); CARBON DIOXIDE 18 MMOL/L (21-32); CHLORIDE 109 MMOL/L (98-107); CREATININE SERUM 0.58 MG/DL (0.60-1.30); GFR ESTIMATED > 60; GLUCOSE 273 MG/DL (70-105); POTASSIUM 3.8 MMOL/L (3.6-5.0); SODIUM 137 MMOL/L (135-145)
[2018-03-10 08:00] VITALS: BP 130/77
[2018-03-10] MEDS: CATHETER FLUSH 10 ML SYR IV SCH (08:12)
[2018-03-10] MEDS: IBUPROFEN 800 MG (MOTRIN) TAB PO SCH (08:12)
[2018-03-10] MEDS: inSUlin ASPART (NovoLOG) 1 UNIT/0.01 ML (CHARGE PER UNIT) SC SCH ×2 (08:13→12:24)
[2018-03-10] MEDS: PANTOPRAZOLE 40 MG (PROTONIX) TAB PO SCH (08:15)
[2018-03-10] MEDS: NS IV 1000 ML 1,000 ML IV SCH (09:31)
[2018-03-10] MEDS: ASPIRIN E.C. 81 MG (ECOTRIN) TAB PO SCH (09:31)
[2018-03-10] MEDS: lisINopril 5 MG (PRINIVIL) TABLET PO SCH (09:31)
[2018-03-10] MEDS: TICAGRELOR 90 MG TABLET (BRILINTA) PO SCH (09:31)
[2018-03-10 12:00] VITALS: BP 111/69
--- NOTE | 2018-03-10 12:24 | Discharge Summary ---
Diagnosis/Chief Complaint Date of Admission Mar 07, 2018 at 10:55 pm Date of Discharge 03/10/18 Admission Diagnosis Admission Diagnosis Atypical chest pain CAD IDDM with neuropathy HLD Tobacco Abuse Discharge Diagnosis See Above Problems/Diagnosis: (1) Chest pain Assessment & Plan: - Consult Cardiology, plan for cath in AM if troponins remain negative, Continue ASA and plavix 03/09: Patient continues to have 10/10 chest pain but is resting comfortably, ECG and Trops have continued to be neg. D-dimer neg, started on motrin scheduled to treat possible pericarditis, No reflux symptoms, will get CTA due to continued symptoms Qualifiers: Qualified Codes: R07.9 - Chest pain, unspecified Status: Acute (2) CAD (coronary artery disease) Assessment & Plan: 03/09: Stent placed yesterday Qualifiers: Qualified Codes: I25.118 - Atherosclerotic heart disease of [place] coronary artery with other forms of angina pectoris Status: Chronic (3) Insulin dependent diabetes mellitus with complications Assessment & Plan: - Will adjust insulin as needed, SSI A, Accuchecks qACHS, A1c pending Status: Chronic (4) Hypertension Assessment & Plan: - Continue home meds Qualifiers: Qualified Codes: I10 - Essential (primary) hypertension Status: Chronic (5) Peripheral neuropathy Qualifiers: Qualified Codes: G63 - Polyneuropathy in diseases classified elsewhere Status: Chronic (6) HLD (hyperlipidemia) Assessment & Plan: - Continue statin due to HLD, CAD, DM Qualifiers: Qualified Codes: E78.2 - Mixed hyperlipidemia Status: Chronic (7) Tobacco abuse Assessment & Plan: - Discussed the need for cessation Status: Chronic (8) DVT prophylaxis Assessment & Plan: - SCDs due to Cath tomorrow Status: Acute Chief Complaint/HPI Chief Complaint/HPI 38 yo F with uncontrolled DM that presents to ER with chest pain. States that she has been having chest pain on and off all night. Activity worsens chest pain. Nitro resolved chest pain. States that she has a h/o stent placement earlier this year. For the last week her blood sugars have been more difficult to control. Recently took antibiotics and steroids for bronchitis per patient. Discharge Summary-Simple/Stand Procedures Cath: S/p 1 stent placed in LAD Consultations Dr West, Cardiology Discharge Physical Examination Allergies: Coded Allergies: coconut (Verified Allergy, Severe, anaphylactic reaction, 07/11/17) ketorolac (Unverified Allergy, Unknown, 08/19/15) Vitals & I&Os Vital Sign - Last 12Hours Date Time Temp Pulse Resp B/P (MAP) Pulse Ox O2 Delivery O2 Flow Rate FiO2 03/10/18 08:00 Room Air 03/10/18 08:00 97.3 102 20 130/77 (94) 98 Intake and Output 03/10/18 00:00 Intake Total 3382 ml Output Total 600 ml Balance 2782 ml General Appearance: Alert, Oriented X3, Cooperative, No Acute Distress HEENT: Mucous Memb Moist/[place] Respiratory: Clear to Auscultation, Normal Air Movement Cardiovascular: Regular Rate, No Murmurs Abdominal: Normal Bowel Sounds, Soft, No Tenderness, No Hepatosplenomegaly, No Masses Extremities: No Edema, No Tenderness/Swelling Skin: No Rashes, No Breakdown Neuro: Normal Speech, Strength at 5/5 X4 Ext, Sensation Intact, Cranial Nerves 3-12 NL Psych/Mental Status: Mental Status NL, Mood NL Hospital Course See final discharge diagnosis. Radiology Reviewed Date of Exam: 03/07/18 CHEST 1 VIEW, AP/PA ONLY INDICATION: Chest pain for last 24 hours. Left-sided arm pain. EXAMINATION: Chest dated 03/07/2018. COMPARISON: 02/20/2018. FINDINGS: The cardiomediastinal silhouette is unremarkable. The pulmonary vasculature is within normal limits. The lungs and pleural spaces are clear. IMPRESSION: No evidence of an acute cardiopulmonary process Discussion & Recommendations 38 yo F with uncontrolled DM and tobacco abuse that presented with chest pain. She was taken to [facility] and received a stent to her LAD. Patient then continued to have chest pain with negative cardiac enzymes and a normal ECG. She had a negative CTA and d-dimer. Normal Echo. Patient was given nitro, morphine and GI cocktail that did not improve chest pain. She was anxious and received ativan which helped her chest pain. She has close follow up with her nuclear control room operator Dr Benoit and PCP Roberto Carlos Collins at [facility] [place]. Discharge Condition at discharge stable Instructions to patient/family Please see electronic discharge instructions given to patient. Discharge Medications Reviewed and agree with Discharge Medication list on patient's Discharge Instruction sheet Clinical Quality Measures AMI/AHF: ASA po Prior to arrival: Yes DVT/VTE Risk/Contraindication: Risk Factor Score Per Nursin RFS Level Per Nursing on Admit: 2=Moderate Copy Copies To 1: Young BROOKS PA GAULT, HOLLY R MD Mar 10, 2018 12:24
[2018-03-10] MEDS ORDERED: LORA1TAB PO (12:27)
--- NOTE | 2018-03-10 12:29 | Discharge Instructions ---
Discharge [facility] Discharge Medications New, Converted or Re-Newed RX: RX on Chart New Medications: Lorazepam (Lorazepam) 1 Mg Tablet 2 MG PO Q6H PRN for ANXIETY, #10 TAB Continued Medications: Albuterol Sulfate (Ventolin Hfa) 18 Gm Hfa.aer.ad 2 PUFF IH Q4H PRN for SHORTNESS OF BREATH, #1 INHALER 0 Refills Aspirin (Aspirin) 81 Mg Tab.chew 81 MG PO DAILY, #120 TAB 5 Refills Atorvastatin Calcium (Atorvastatin Calcium) 80 Mg Tablet 80 MG PO HS, #30 TAB 3 Refills Clopidogrel Bisulfate (Clopidogrel) 75 Mg Tablet 75 MG PO DAILY, #30 TAB 5 Refills Insulin Determir (Levemir) 1,000 Units/10 Ml Soln 20 UNITS SQ BID for 30 Days Insulin Lispro (Humalog Kwikpen) 100 Unit/1 Ml Insuln.pen 15 UNIT SQ TIDAC for 30 Days Isosorbide Mononitrate (Isosorbide Mononitrate ER) 30 Mg Tab.er.24h 30 MG PO DAILY, #30 TAB 3 Refills Lisinopril (Lisinopril) 5 Mg Tablet 5 MG PO DAILY@0900, #30 TAB 3 Refills Metoprolol Succinate (Metoprolol Succinate) 50 Mg Tab.er.24h 50 MG PO BID, #60 TAB Naproxen (Naprosyn) 500 Mg Tablet 500 MG PO BID, #30 TAB 0 Refills Pantoprazole Sodium (Protonix) 40 Mg Granpkt.dr 40 MG PO DAILY, #30 TAB 2 Refills Ranolazine (Ranexa) 500 Mg Tab.er.12h 500 MG PO BID, #60 TAB 3 Refills Discontinued Medications: Furosemide (Furosemide) 40 Mg Tablet 40 MG PO DAILY, #30 TAB 5 Refills Potassium Chloride (Klor-Con M20) 20 Meq Tab.er.prt 20 MEQ PO DAILY@0700, #30 TAB 5 Refills Patient Instructions Goal/Follow Up Appt: You will be called with hospital follow up appt Keep your appt with Dr Benoit next week that is already scheduled Activity & Diet Discharge Diet: ADA Diet, Cardiac Diet Activity as Tolerated: Yes Orders-Post D/C & Referrals Pneu Vac Indicated: Yes [facility] GA[facility], HOLLY R MD Mar 10, 2018 12:29 pm
[2018-03-10] MEDS ORDERED: IBUP-1780 PO (13:17)
--- NOTE | 2018-03-10 13:18 | Cardiology Progress Note ---
Cardiology SOAP Progress Note Subjective: No further chest pain. Objective: I&O/Vital Signs 03/10/18 03/10/18 03/10/18 03/10/18 07:00 08:00 08:00 12:00 Temp 97.3 97.3 Pulse 76 102 86 Resp 20 18 B/P (MAP) 130/77 (94) 111/69 (83) Pulse Ox 98 98 O2 Delivery Room Air Room Air Room Air 03/10/18 13:35 B/P (MAP) 03/10/18 00:00 Intake Total 3382 ml Output Total 600 ml Balance 2782 ml Weight (Pounds): 161 Weight (Ounces): 7.0 Weight (Calculated Kilograms): 73.465879 Constitutional: appears stated age, AAO x 3; No apparent distress; well- developed, well-nourished Respiratory: No accessory muscle use, No respiratory distress, No chest tender , No chest expansion is symmetric; chest is bilaterally symmetric; No lungs clear to percussion; lungs clear to auscultation; No crackles, No rhonchi, No rales, No stridor, No wheezing, No pleural rub, No other Cardiovascular: regular rate-rhythm; No irregularly irregular, No extra beats, No parasternal heave is noted, No JVD, No edema, No bradycardia, No tachycardia , No point of maximal impulse, No cardiac thrills are palpable; S1 and S2; No gallop/S3, No gallop/S4, No diastolic murmur, No systolic murmur, No friction rub, No click, No other Gastrointestional: No tender, No soft, No round, No distended, No pulsatile mass, No organomegaly, No guarding, No rebound, No tenderness, No hernia, No mass, No audible bowel sounds, No abnormal bowel sounds, No abdominal bruits, No spleenomegaly, No other Extremities: No normal range of motion, No non-tender, No normal inspection, No pedal edema, No calf tenderness, No normal capillary refill, No pelvis stable , No calf tenderness, No inflammation, No pedal edema, No slow capillary refill , No swelling, No other, No abrasion, No clubbing, No cyanosis, No ecchymosis, No laceration, No no lower extremity edema bilateral, No significant edema, No tenderness, No wound Neurologic/Psychiatric: no motor/sensory deficits, alert, normal mood/affect, oriented x 3, power is 5/5 both on sides Skin: No normal color, No warm/dry, No cyanosis, No cool, No diaphoresis, No damp, No ecchymosis, No jaundice, No mottled, No pallor, No rash, No tattoos/ piercings, No ulcerations, No rash on exposed areas, No ulcerations on exposed areas, No other Results/Procedures: Labs Laboratory Tests 03/09/18 18:58: Glucometer 410*H 03/10/18 05:25: Glucometer 281H 03/10/18 06:28: White Blood Count 4.8, Red Blood Count 3.82L, Hemoglobin 9.8L, Hematocrit 29L, Mean Corpuscular Volume 77L, Mean Corpuscular Hemoglobin 26, Mean Corpuscular Hemoglobin Concent 33, Red Cell Distribution Width 15.4H, Platelet Count 245, Mean Platelet Volume 9.0, Neutrophils (%) (Auto) 54, Lymphocytes (%) (Auto) 35, Monocytes (%) (Auto) 7, Eosinophils (%) (Auto) 4, Basophils (%) (Auto) 0, Neutrophils # (Auto) 2.5, Lymphocytes # (Auto) 1.6, Monocytes # (Auto) 0.4, Eosinophils # (Auto) 0.2, Basophils # (Auto) 0.0, Sodium Level 137, Potassium Level 3.8, Chloride Level 109H, Carbon Dioxide Level 18L, Anion Gap 10, Blood Urea Nitrogen 8, Creatinine 0.58L, Estimat Glomerular Filtration Rate > 60, BUN/ Creatinine Ratio 14, Glucose Level 273H, Calcium Level 8.3L 03/10/18 11:17: Glucometer 315H A/P: Assessment/Dx: Chest pain, status post PCI History of CAD/PCI, Diabetes, Active smoking, Hypertension, Hyperlipidemia Plan: Chest pain, status post coronary angiography yesterday. FFR of the LAD was significantly abnormal therefore PCI was performed. Recurrent chest pain with breathing. Negative serial troponin. Negative EKG. Very likely noncoronary chest pain. NSAIDs are recommended, could be pericarditis. Defer to Dr. Muñoz. Echocardiogram History of CAD/PCI, continue dual antiplatelet therapy. Diabetes, Active smoking, smoking cessation was strongly recommended. Hypertension, continue current antihypertensive therapy. Hyperlipidemia, patient is on statin however LDL is 109 which is significantly elevated. Target LDL between 5070. Ezetimibe started. Patient will follow with Dr. Benoit. Thank you for your consultation. Please call me if you have any questions. Jose Elias West MD, FACP, FACC, FSCAI, FHRS, CCDS Interventional Cardiology Cardiac Electrophysiology Vascular Medicine and Endovascular Interventions Clinical Quality Measures AMI/AHF: ASA po Prior to arrival: Yes Lynn WEST MD Mar 10, 2018 13:18
--- OUTSIDE RECORDS SUMMARY | 2018-03-19 14:15 | XMS REPORT | Clinical Summary ---
Author Author [facility] Organization [facility] Address Unknown Phone Unavailable Care Team Providers Care Sheet Cutter Name Role Phone Alfred Diaz MD PCP Unavailable Source Comments Some departments are not documenting in the electronic medical record. If you do not see the information that you expected, contact Release of Information in the Health Information Management department at [phone] for further assistance in locating additional records.[facility] Allergies Not on File Current [...]
--- OUTSIDE RECORDS SUMMARY | 2018-03-19 14:15 | XMS REPORT ---
Author Author NEW LE Organization [facility] Address [address] [place] [address] Care Team Providers Care Preschool Aide Name Role Phone NEW LE Unavailable PROBLEMS Type Condition ICD9-CM Code [id number] Code Onset Dates Condition Status SNOMED Code Problem Cigarette smoker F17.210 Active 43217786 Problem Gastroesophageal reflux disease without esophagitis K21.9 Active 512088991 Problem Coronary artery disease involving [place] heart with angina pectoris, unspecified vessel or lesion type I25.119 Active 19175543 Problem Carpal tunnel syndrome on both sides G56.03 Active 21305884104174476 Problem 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 Active 66469141915918668 Problem Moderate episode of recurrent major depressive disorder F33.1 Active 440040856 Problem PTSD (post-traumatic stress disorder) F43.10 Active 01141301 Problem Restless leg syndrome G25.81 Active 41683841 Problem Coronary artery disease involving [place] coronary artery of [place] heart with angina pectoris I25.119 Active 5708883395146 Problem Elevated BUN R79.9 Active 683635826 Problem PVC (premature ventricular contraction) I49.3 Active 69495471 Problem Hyperlipidemia LDL goal <70 E78.5 Active 36580750 Problem Chest pain, unspecified type R07.9 Active 15952180 Problem FDC 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 Z79.4 Active 315157356 Problem Essential hypertension I10 Active 52433778 Problem Type 2 diabetes mellitus with diabetic polyneuropathy E11.42 Active 78235539 Problem Atherosclerotic heart disease of [place] coronary artery without angina pectoris I25.10 Active 405638102 ALLERGIES No Information ENCOUNTERS Encounter Location Date Diagnosis [facility] [address] [facility] [id number] [address] Mar, [facility] [id number] [address] Feb, [facility] [address] [address] Feb, [facility] [address] [address] Feb, [facility] [address] [address] Feb, Type 2 diabetes mellitus with diabetic polyneuropathy E11.42 [facility] [address] [place] [address] Feb, [facility] [address] [place] [address] 4[address] Feb, [facility] [address] [address] Jan, [facility] [id number] [place] [address]78[address] 0[address] Jan, Carpal tunnel syndrome on both sides G56.03 [facility] [address] [address] Jan, PTSD (post-traumatic stress disorder) F43.10 and Moderate episode of recurrent major depressive disorder F33.1 [facility] [address] [address] Jan, [facility] [address] [address] Jan, PTSD (post-traumatic stress disorder) F43.10 and Moderate episode of recurrent major depressive disorder F33.1 [facility] [address] [address] Jan, Type 2 diabetes mellitus with diabetic polyneuropathy E11.42 [facility] [address] [address] Jan, PTSD (post-traumatic stress disorder) F43.10 and Moderate episode of recurrent major depressive disorder F33.1 [facility] [address] [place] [address]27- 9257 Jan, PTSD (post-traumatic stress disorder) F43.10 and Moderate episode of recurrent major depressive disorder F33.1 [facility] [address] [place] [address] 18283- 3782 Jan, [facility] [address] [place] [address] -[address] Jan, Pain of left hand M79.642 and Pain in right hand M79.641 [facility] [address] [place] [address] 00335- 1350 Jan, [facility] [id number] [place] [address] 56272- 8147 Dec, Bilateral hand numbness R20.0 [facility] [id number] [place] [address] 60296- 2802 Dec, PTSD (post-traumatic stress disorder) F43.10 and Moderate episode of recurrent major depressive disorder F33.1 [facility] [address] [place] [address] 95281- 7160 Dec, Type 2 diabetes mellitus with diabetic polyneuropathy E11.42 [facility] [id number] [place] [address] 06210- 2288 Dec, [facility] [id number] [place] [address] 43602- 7823 Dec, Type 2 diabetes mellitus with diabetic polyneuropathy E11.42 and 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 [facility] [id number] [place] [address] 87938- 7067 18 Dec, 2017 Bilateral hand numbness R20.0 [facility] [id number] [place] [address] 32353- 7461 18 Dec, 2017 Moderate episode of recurrent major depressive disorder F33.1 ; Type 2 diabetes mellitus with diabetic polyneuropathy E11.42 ; 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 Z79.4 ; Hyperlipidemia LDL goal <70 E78.5 ; Chest pain, unspecified type R07.9 ; Atherosclerotic heart disease of [place] coronary artery without angina pectoris I25.10 ; Cigarette smoker F17.210 ; Gastroesophageal reflux disease without esophagitis K21.9 and Restless leg syndrome G25.81 [place] [id number] [place] [address] 82562- 65[address] 18 Dec, 2017 PTSD (post-traumatic stress disorder) F43.10 and Moderate episode of recurrent major depressive disorder F33.1 [place] [id number] [place] [address] 41469- 9922 11 Dec, 2017 Moderate episode of recurrent major depressive disorder F33.1 [place] [address] [address] Dec, [place] [id number] [place] [address] 14099- 3708 Dec, [place] [id number] [place] [address] 09011- 9331 Dec, Uncontrolled type 2 diabetes mellitus with hyperglycemia E11.65 and Flatulence/gas pain/belching R14.0 [place] [address] [address]- [address] Nov, [place] [id number] [place] [address] 13405- 1294 Nov, PTSD (post-traumatic stress disorder) F43.10 and Moderate episode of recurrent major depressive disorder F33.1 [place] [id number] [place] [address] 97738- 9756 Nov, Chest pain, unspecified type R07.9 ; Coronary artery disease involving [place] coronary artery of [place] heart with angina pectoris I25.119 ; Restless leg syndrome G25.81 ; Hospital discharge follow-up Z09 and Type 2 diabetes mellitus with diabetic polyneuropathy E11.42 [place] [id number] [place] [address] 66995- 3134 Nov, Hyperlipidemia LDL goal <70 E78.5 [place] [id number] [place] [address] 28798- 8148 14 Nov, 2017 Hospital discharge follow-up Z09 ; Chest pain, unspecified type R07.9 ; Coronary artery disease involving [place] coronary artery of [place] heart with angina pectoris I25.119 and Gastroesophageal reflux disease without esophagitis K21.9 [place] [address] [address]- [address] 07 Nov, 2017 PTSD (post-traumatic stress disorder) F43.10 and Moderate episode of recurrent major depressive disorder F33.1 [place] [id number] [place] [address] 22807- 8131 Oct, Type 2 diabetes mellitus with diabetic polyneuropathy E11.42 [place] [id number] [place] [address] 00831- 3839 Oct, Diarrhea, unspecified type R19.7 ; Gastroesophageal reflux disease without esophagitis K21.9 and Vaginal discharge N89.8 [place] [id number] [place] [address] 27367- 4267 Oct, Type 2 diabetes mellitus with diabetic polyneuropathy E11.42 [place] [id number] [place] [address] 35725- 3109 Oct, Hyperlipidemia LDL goal <70 E78.5 [place] [id number] [place] [address] 18492- 9603 Oct, Atherosclerotic heart disease of [place] coronary artery without angina pectoris I25.10 ; Coronary artery disease involving [place] heart with angina pectoris, unspecified vessel or lesion type I25.119 ; Type 2 diabetes mellitus with diabetic polyneuropathy E11.42 ; Hyperlipidemia LDL goal <70 E78.5 ; Cigarette smoker F17.210 and Post-traumatic stress reaction F43.10 [place] [id number] [place] [address] 71548- 3283 Oct, [place] [id number] [place] [address] 20202- 0371 Oct, Difficulty breathing R06.89 ; Hospital discharge follow-up Z09 and Bilateral lower extremity edema R60.0 [facility] [id number] [place] [address] 87083- 7440 Oct, [facility] [id number] [place] [address] 07257 -1186 Oct, Dependent edema R60.9 [facility] [id number] [place] [address] 68933- 2232 Oct, [facility] [id number] [place] [address] 07997- 3857 Oct, [facility] [id number] [place] [address] 73940- 3985 Oct, Type 2 diabetes mellitus with diabetic polyneuropathy E11.42 [facility] [id number] [place] [address] 65900- 2283 Oct, [facility] [id number] [place] [address] 02235- 3729 Sep, [facility] [id number] [place] [address] 64726- 1053 August, [facility] [id number] [place] [address] 01119- 2060 Jul, [facility] [id number] [place] [address] 96300- 6172 Jul, Establishing care with new doctor, encounter for Z76.89 ; Type 2 diabetes mellitus with diabetic polyneuropathy E11.42 ; FDC 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 Z79.4 ; Hyperlipidemia LDL goal <70 E78.5 ; Essential hypertension I10 and Chest pain, unspecified type R07.9 [facility] [id number] [place] [address] 31175- 4307 Jul, [facility] [id number] [place] [address] 83181- 5388 Jul, [facility] [id number] [address] Jun, [facility] [address] [place] [address] Jun, [facility] [address] [place] [address]- 8[address] Jun, [facility] [address] [place] [address] 20439- 2793 Jun, Acute hyperglycemia R73.9 ; Type 2 diabetes mellitus with diabetic polyneuropathy E11.42 ; 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 Z79.4 ; HTN, goal below 130/80 I10 and Hyperlipidemia LDL goal <70 E78.5 [facility] [place] [id number] [place] [address] 63823 -4681 August, [facility] [place] [id number] [place] [address] 05365 -3386 August, [facility] [place] [address] [place] [address] August, Acute vaginitis N76.0 ; Trichomonas vaginitis A59.01 and Vaginal discharge N89.8 IMMUNIZATIONS No Known Immunizations SOCIAL HISTORY Never Assessed REASON FOR VISIT medication question PLAN OF CARE VITAL SIGNS MEDICATIONS Medication Instructions Dosage Frequency Start Date End Date Duration Status Pen Indore 31G X 6 MM Active Isosorbide Mononitrate ER 30 MG Orally Once a day 1 tablet in the morning 24h Nov, 30 day(s) Active Metformin HCl 1000 MG Orally Twice a day 1 tablet with meals 12h Active Humalog KwikPen 100 UNIT/ML Subcutaneous 3 times a day before meals Inject 15 Units with meals Active Pantoprazole Sodium 40 mg Orally Once a day 1 tablet 24h Nov, 30 day(s) Active Lisinopril 5 mg Orally Once a day 1 tablet 24h Jul, 30 day(s) Active Plavix 75 MG Orally Once a day 1 tablet 24h Oct, 30 days Active Gabapentin 300 MG Orally Three times a day 1 capsule 8h 30 Active Zoloft 100 mg Orally Once a day 1.5 tablets 24h Nov, Active Amitriptyline HCl 25 MG Orally Once a day at bedtime 1 tablet Nov, Active HydrOXYzine HCl 25 MG Orally every 8 hrs 1 tablet as needed 8h Feb, 30 day(s) Active Ranolazine ER 500 mg Orally Twice a day 1 tablet 12h Nov, 30 day(s) Active Victoza 18 MG/3ML Subcutaneous daily 1.8 mg 24h Dec, Active Blood Glucose Monitor System w/Device as directed Jun, Active Atorvastatin Calcium 80 MG Orally Once a day 1 tablet 24h 30 days Active Levemir FlexTouch 100 UNIT/ML Subcutaneous 2 times a day 20 Units 12h Active Blood Glucose Test Strip [...] night 11/22/17 Hospitalization History Chest pain 12/03/2017 Hospitalization History [facility] 02/22/2018
--- OUTSIDE RECORDS SUMMARY | 2018-03-19 14:15 | XMS REPORT ---
Author Author NEW LE Organization [facility] Address [address] [place] [address] Care Team Providers Care Patient Intake Coordinator Name Role Phone NEW LE Unavailable PROBLEMS Type Condition ICD9-CM Code WLR91-CU Code Onset Dates Condition Status SNOMED Code Problem Cigarette smoker F17.210 Active 63936321 Problem Gastroesophageal reflux disease without esophagitis K21.9 Active 934176666 Problem Coronary artery disease involving picayune heart with angina pectoris, unspecified vessel or lesion type I25.119 Active 25719419 Problem Carpal tunnel syndrome on both sides G56.03 Active [id number] Problem Atherosclerotic heart disease of picayune coronary artery with unstable angina pectoris I25.110 Active 76497767752620105 Problem Moderate episode of recurrent major depressive disorder F33.1 Active 221068749 Problem PTSD (post-traumatic stress disorder) F43.10 Active 18038816 Problem Restless leg syndrome G25.81 Active 77644293 Problem Coronary artery disease involving picayune coronary artery of picayune heart with angina pectoris I25.119 Active 1917910908846 Problem Elevated BUN R79.9 Active 474137916 Problem PVC (premature ventricular contraction) I49.3 Active 52217727 Problem Hyperlipidemia LDL goal <70 E78.5 Active 82561296 Problem Chest pain, unspecified type R07.9 Active 00264932 Problem 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.4 Active 064499018 Problem Essential hypertension I10 Active 25863119 Problem Type 2 diabetes mellitus with diabetic polyneuropathy E11.42 Active 49695024 Problem Atherosclerotic heart disease of picayune coronary artery without angina pectoris I25.10 Active 920234672 ALLERGIES No Information ENCOUNTERS Encounter Location Date Diagnosis [facility] [address] [facility] [id number] [address] Mar, [facility] [id number] [address] Feb, [facility] [address] [address] Feb, [facility] [address] [address] Feb, [facility] [address] [address] Feb, Type 2 diabetes mellitus with diabetic polyneuropathy E11.42 [facility] [id number] [place] [address]- 2958 Feb, [facility] [id number] [place] [address]300- 56[address] Feb, [facility] [address] [address] Jan, [facility] [id number] [place] [address]14- [address] Jan, Carpal tunnel syndrome on both sides G56.03 [facility] [address] [address] Jan, PTSD (post-traumatic stress disorder) F43.10 and Moderate episode of recurrent major depressive disorder F33.1 [facility] [address] [address] Jan, [facility] [address] [address] Jan, PTSD (post-traumatic stress disorder) F43.10 and Moderate episode of recurrent major depressive disorder F33.1 [facility] [address] [address] Jan, Type 2 diabetes mellitus with diabetic polyneuropathy E11.42 [facility] [address] [address] Jan, PTSD (post-traumatic stress disorder) F43.10 and Moderate episode of recurrent major depressive disorder F33.1 [facility] [id number] [place] [address]53- 0165 Jan, PTSD (post-traumatic stress disorder) F43.10 and Moderate episode of recurrent major depressive disorder F33.1 [facility] [id number] [place] [address]- [address] Jan, [facility] [id number] [place] [address] Jan, Pain of left hand M79.642 and Pain in right hand M79.641 [facility] [id number] [place] [address] 01462- 7229 Jan, [facility] [id number] [place] [address]89- 7623 Dec, Bilateral hand numbness R20.0 [facility] [id number] [place] [address] 74237- 5800 Dec, PTSD (post-traumatic stress disorder) F43.10 and Moderate episode of recurrent major depressive disorder F33.1 [facility] [id number] [place] [address] 97575- 9051 Dec, Type 2 diabetes mellitus with diabetic polyneuropathy E11.42 [facility] [id number] [place] [address] 38547- 2536 Dec, [facility] [id number] [place] [address] 48709- 8795 Dec, Type 2 diabetes mellitus with diabetic polyneuropathy E11.42 and Atherosclerotic heart disease of picayune coronary artery with unstable angina pectoris I25.110 [facility] [id number] [place] [address] 61282- 5296 18 Dec, 2017 Bilateral hand numbness R20.0 [facility] [id number] [place] [address] 05238- 2805 18 Dec, 2017 Moderate episode of recurrent major depressive disorder F33.1 ; Type 2 diabetes mellitus with diabetic polyneuropathy E11.42 ; 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 Z79.4 ; Hyperlipidemia LDL goal <70 E78.5 ; Chest pain, unspecified type R07.9 ; Atherosclerotic heart disease of picayune coronary artery without angina pectoris I25.10 ; Cigarette smoker F17.210 ; Gastroesophageal reflux disease without esophagitis K21.9 and Restless leg syndrome G25.81 [place] [id number] [place] [address] 73562- 1527 18 Dec, 2017 PTSD (post-traumatic stress disorder) F43.10 and Moderate episode of recurrent major depressive disorder F33.1 [place] [id number] [place] [address]20- 0877 11 Dec, 2017 Moderate episode of recurrent major depressive disorder F33.1 [place] [address] [address] Dec, [place] [id number] [place] [address] 43407- 0839 Dec, [place] [id number] [place] [address] 03825- 1535 Dec, Uncontrolled type 2 diabetes mellitus with hyperglycemia E11.65 and Flatulence/gas pain/belching R14.0 [place] [address] [address]- [address] Nov, [place] [id number] [place] [address] 51229- 5641 Nov, PTSD (post-traumatic stress disorder) F43.10 and Moderate episode of recurrent major depressive disorder F33.1 [place] [id number] [place] [address] 47731- 4123 Nov, Chest pain, unspecified type R07.9 ; Coronary artery disease involving picayune coronary artery of picayune heart with angina pectoris I25.119 ; Restless leg syndrome G25.81 ; Hospital discharge follow-up Z09 and Type 2 diabetes mellitus with diabetic polyneuropathy E11.42 [place] [id number] [place] [address] 35081- 4553 Nov, Hyperlipidemia LDL goal <70 E78.5 [place] [id number] [place] [address] 67781- 0036 14 Nov, 2017 Hospital discharge follow-up Z09 ; Chest pain, unspecified type R07.9 ; Coronary artery disease involving picayune coronary artery of picayune heart with angina pectoris I25.119 and Gastroesophageal reflux disease without esophagitis K21.9 [place] [address] [address]- [address] 07 Nov, 2017 PTSD (post-traumatic stress disorder) F43.10 and Moderate episode of recurrent major depressive disorder F33.1 [place] [id number] [place] [address] 36115- 4308 Oct, Type 2 diabetes mellitus with diabetic polyneuropathy E11.42 [place] [id number] [place] [address] 89804- 8469 Oct, Diarrhea, unspecified type R19.7 ; Gastroesophageal reflux disease without esophagitis K21.9 and Vaginal discharge N89.8 [place] [id number] [place] [address] 88694- 6624 Oct, Type 2 diabetes mellitus with diabetic polyneuropathy E11.42 [place] [id number] [place] [address] 51254- 7999 Oct, Hyperlipidemia LDL goal <70 E78.5 [place] [id number] [place] [address] 79451- 7734 Oct, Atherosclerotic heart disease of picayune coronary artery without angina pectoris I25.10 ; Coronary artery disease involving picayune heart with angina pectoris, unspecified vessel or lesion type I25.119 ; Type 2 diabetes mellitus with diabetic polyneuropathy E11.42 ; Hyperlipidemia LDL goal <70 E78.5 ; Cigarette smoker F17.210 and Post-traumatic stress reaction F43.10 [place] [id number] [place] [address] 72774- 9655 Oct, [place] [id number] [place] [address] 93309- 3921 Oct, Difficulty breathing R06.89 ; Hospital discharge follow-up Z09 and Bilateral lower extremity edema R60.0 [facility] [id number] [place] [address] 76277- 4544 Oct, [facility] [id number] [place] [address] 85552 -1094 Oct, Dependent edema R60.9 [facility] [id number] [place] [address] 14593- 4383 Oct, [facility] [id number] [place] [address] 11176- 2928 Oct, [facility] [id number] [place] [address] 22292- 5372 Oct, Type 2 diabetes mellitus with diabetic polyneuropathy E11.42 [facility] [id number] [place] [address] 64952- 1264 Oct, [facility] [id number] [place] [address] 51283- 6767 Sep, [facility] [id number] [place] [address] 77589- 8287 August, [facility] [id number] [place] [address] 27217- 6602 Jul, [facility] [id number] [place] [address] 75550- 5721 Jul, Establishing care with new doctor, encounter for Z76.89 ; Type 2 diabetes mellitus with diabetic polyneuropathy E11.42 ; 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.4 ; Hyperlipidemia LDL goal <70 E78.5 ; Essential hypertension I10 and Chest pain, unspecified type R07.9 [facility] [id number] [place] [address] 93447- 3531 Jul, [facility] [id number] [place] [address] 00613- 4336 Jul, [facility] [address] [address]- 3671 Jun, [facility] [address] [address]- 5309 Jun, [facility] [address] [address]- 5406 Jun, [facility] [id number] [place] [address] 39734- 7306 Jun, Acute hyperglycemia R73.9 ; Type 2 diabetes mellitus with diabetic polyneuropathy E11.42 ; 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 Z79.4 ; HTN, goal below 130/80 I10 and Hyperlipidemia LDL goal <70 E78.5 [facility] [place] [address] [address] August, [facility] [place] [id number] [place] [address] 23962 -1691 August, [facility] [place] [address] [address] August, Acute vaginitis N76.0 ; Trichomonas vaginitis A59.01 and Vaginal discharge N89.8 IMMUNIZATIONS No Known Immunizations SOCIAL HISTORY Never Assessed REASON FOR VISIT new medication PLAN OF CARE VITAL SIGNS MEDICATIONS Medication Instructions Dosage Frequency Start Date End Date Duration Status Pen [place]in[place] 31G X 6 MM Active Blood Glucose Test Strip test strips One Touch Verio strip and Delica lancet 3 times a day test blood sugar 8h Jun, 30 days Active Zoloft 100 mg Orally Once a day 1.5 tablets 24h Nov, Active Blood Glucose Monitor System w/Device as directed Jun, Active Pantoprazole Sodium 40 mg Orally Once a day 1 tablet 24h Nov, 30 day(s) Active Levemir FlexTouch 100 UNIT/ML Subcutaneous 2 times a day 20 Units 12h Active Plavix 75 MG Orally Once a day 1 tablet 24h Oct, 30 days Active Lisinopril 5 mg Orally Once a day 1 tablet 24h Jul, 30 day(s) Active Isosorbide Mononitrate ER 30 MG Orally Once a day 1 tablet in the morning 24h Nov, 30 day(s) Active Amitriptyline HCl 25 MG Orally Once a day at bedtime 1 tablet 28 Nov, 2017 Active Ranolazine ER 500 mg Orally Twice a day 1 tablet 12h 20 Nov, 2017 30 day(s) Active Victoza 18 MG/3ML Subcutaneous daily 1.8 mg 24h 06 Dec, 2017 Active HydrOXYzine HCl 25 MG Orally every 8 hrs 1 tablet as needed 8h 26 Feb, 2018 30 day(s) Active Humalog KwikPen 100 UNIT/ML Subcutaneous 3 times a day before meals Inject 15 Units with meals Active Gabapentin 300 MG Orally Three times a day 1 capsule 8h 30 Active Ranexa 500 MG Orally Twice a day 1 tablet 12h 27 Feb, 2018 30 day(s) Active Metformin HCl 1000 MG Orally Twice a day 1 tablet with meals 12h Active Atorvastatin Calcium 80 MG Orally [...]
== END 2018-03-10 13:35 | disposition home or self-care (01) ==
LOC: EDUNIT# 20:36 → ER 20:37 → 4TH 20:38 → UNDOADMOB 22:55 → 4TH 22:55 → UNDOADMOB 03-08 00:40 → 4TH 03-08 00:40 → UNDODISOB 03-10 13:35
PROVIDERS: ADMIT Family Medicine; ATTEND Family Medicine
DX: R07.9 Chest pain, unspecified (principal); I25.110 Atherosclerotic heart disease of native coronary artery with unstable angina pectoris; E11.40 Type 2 diabetes mellitus with diabetic neuropathy, unspecified; I10 Essential (primary) hypertension; E78.2 Mixed hyperlipidemia; Z79.4 Long term (current) use of insulin; F17.210 Nicotine dependence, cigarettes, uncomplicated
CPT/HCPCS: 36415; 71045; 71275; 80048; 80053; 80061; 82550; 82962; 83036; 83735; 83874; 84484; 85025; 85027; 85347; 85379; 85610; 85730; 90686; 93005; 93041; 93306; 93458; 96361; 96374; 96375; 96376

== ENCOUNTER 2018-03-28 19:50 | Emergency (ER) | payer OTHER ==
[~2018-03-28] VITALS: Ht 157.5 cm; Wt 68.9 kg
[~2018-03-28 19:50] MED LIST changes: +IBUP-1780 PO; +LORA1TAB PO
--- OUTSIDE RECORDS SUMMARY | 2018-03-28 19:56 | XMS REPORT ---
Author Author NEW LE Organization [facility] Address [address] [place] [address] Care Team Providers Care Satellite Dish Installer Name Role Phone NEW LE Unavailable PROBLEMS Type Condition ICD9-CM Code KEX36-OB Code Onset Dates Condition Status SNOMED Code Problem Cigarette smoker F17.210 Active 74332303 Problem Gastroesophageal reflux disease without esophagitis K21.9 Active 500139150 Problem Coronary artery disease involving [place] heart with angina pectoris, unspecified vessel or lesion type I25.119 Active 42696824 Problem Carpal tunnel syndrome on both sides G56.03 Active 57234546747795013 Problem 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 Active 33870438409110212 Problem Moderate episode of recurrent major depressive disorder F33.1 Active 619867847 Problem PTSD (post-traumatic stress disorder) F43.10 Active 06071225 Problem Restless leg syndrome G25.81 Active 36905342 Problem Coronary artery disease involving [place] coronary artery of [place] heart with angina pectoris I25.119 Active 5084726348713 Problem Elevated BUN R79.9 Active 393845867 Problem PVC (premature ventricular contraction) I49.3 Active 84990012 Problem Hyperlipidemia LDL goal <70 E78.5 Active 75617894 Problem Chest pain, unspecified type R07.9 Active 39197593 Problem penitentiary 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 Z79.4 Active 421712642 Problem Essential hypertension I10 Active 93558023 Problem Type 2 diabetes mellitus with diabetic polyneuropathy E11.42 Active 63647377 Problem Atherosclerotic heart disease of [place] coronary artery without angina pectoris I25.10 Active 772284445 ALLERGIES Substance Reaction Event Type Date Status Adhesive Bandages Unknown Drug Allergy Feb, Active Toradol Unknown Non Drug Allergy Feb, Active ENCOUNTERS Encounter Location Date Diagnosis [facility] [address] [facility] [place] [id number] [place] [address] Mar, [facility] [id number], [place] [address] Mar, PTSD (post-traumatic stress disorder) F43.10 [facility] [id number] [place] [address] 64025- 1252 Mar, Hyperlipidemia LDL goal <70 E78.5 and Coronary artery disease involving [place] heart with angina pectoris, unspecified vessel or lesion type I25.119 [facility] [id number] [place] [address] 89119- 6192 Mar, [facility] [id number] [place] [address] 23088- 0160 Feb, Coronary artery disease involving [place] heart with angina pectoris, unspecified vessel or lesion type I25.119 ; Type 2 diabetes mellitus with diabetic polyneuropathy E11.42 and Hospital discharge follow-up Z09 [facility] [id number] [place] [address] 43900- 3825 Feb, [facility] [id number] [place] [address] 35419- 2052 Feb, [facility] [id number] [place] [address] 50164- 9555 Feb, Type 2 diabetes mellitus with diabetic polyneuropathy E11.42 [facility] [id number] [place] [address] 39772- 6908 Feb, [facility] [id number] [place] [address] 06351- 7025 Feb, [facility] [id number] [place] [address] 33489- 7129 Jan, [facility] [id number] [place] [address] 07480- 9116 Jan, Carpal tunnel syndrome on both sides G56.03 [facility] [id number] [place] [address] 54654- 9696 Jan, PTSD (post-traumatic stress disorder) F43.10 and Moderate episode of recurrent major depressive disorder F33.1 [facility] [address], [place] [address] Jan, [facility] [id number] [place], [place] [address] Jan, PTSD (post-traumatic stress disorder) F43.10 and Moderate episode of recurrent major depressive disorder F33.1 [facility] [id number] [place] [address] 38454- 8156 Jan, Type 2 diabetes mellitus with diabetic polyneuropathy E11.42 [facility] [id number] [place] [address] 751385- 9140 Jan, PTSD (post-traumatic stress disorder) F43.10 and Moderate episode of recurrent major depressive disorder F33.1 [facility] [id number] [place] [address] 39116- 8305 Jan, PTSD (post-traumatic stress disorder) F43.10 and Moderate episode of recurrent major depressive disorder F33.1 [facility] [id number] [place] [address] 52068- 8481 Jan, [facility] [id number] [place] [address] 78576 -1995 Jan, Pain of left hand M79.642 and Pain in right hand M79.641 [facility] [id number] [place] [address] 85337- 9637 Jan, [facility] [id number] [place] [address] 81337- 1674 Dec, Bilateral hand numbness R20.0 [facility] [id number] [place] [address] 73319- 9775 Dec, PTSD (post-traumatic stress disorder) F43.10 and Moderate episode of recurrent major depressive disorder F33.1 [facility] [address] [place] [address] 98068- 8959 Dec, Type 2 diabetes mellitus with diabetic polyneuropathy E11.42 [place] [id number] [place] [address] 33379- 7014 Dec, [place] [id number] [place] [address] 76415- 3051 Dec, Type 2 diabetes mellitus with diabetic polyneuropathy E11.42 and 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 [place] [id number] [place] [address] 52674- 0154 Dec, Bilateral hand numbness R20.0 [place] [id number] [place] [address] 54614- 6140 Dec, Moderate episode of recurrent major depressive disorder F33.1 ; Type 2 diabetes mellitus with diabetic polyneuropathy E11.42 ; penitentiary 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 Z79.4 ; Hyperlipidemia LDL goal <70 E78.5 ; Chest pain, unspecified type R07.9 ; Atherosclerotic heart disease of [place] coronary artery without angina pectoris I25.10 ; Cigarette smoker F17.210 ; Gastroesophageal reflux disease without esophagitis K21.9 and Restless leg syndrome G25.81 [place] [id number] [place] [address] 12811- 7126 Dec, PTSD (post-traumatic stress disorder) F43.10 and Moderate episode of recurrent major depressive disorder F33.1 [place] [address] [place] [address] 43857- 8426 Dec, Moderate episode of recurrent major depressive disorder F33.1 [place] [address] [place] [address] 43199- 7629 Dec, [place] [id number] [place] [address] 52358- 5474 Dec, [place] [id number] [place] [address] 12431- 7465 Dec, Uncontrolled type 2 diabetes mellitus with hyperglycemia E11.65 and Flatulence/gas pain/belching R14.0 [place] [id number] [place] [address] 99252- 4790 Nov, [place] [address] [address]- 9804 Nov, PTSD (post-traumatic stress disorder) F43.10 and Moderate episode of recurrent major depressive disorder F33.1 [place] [id number] [place] [address] 87720- 2805 Nov, Chest pain, unspecified type R07.9 ; Coronary artery disease involving [place] coronary artery of [place] heart with angina pectoris I25.119 ; Restless leg syndrome G25.81 ; Hospital discharge follow-up Z09 and Type 2 diabetes mellitus with diabetic polyneuropathy E11.42 [place] [id number] [place] [address] 77692- 9976 Nov, Hyperlipidemia LDL goal <70 E78.5 [place] [address] 70444- 2841 14 Nov, 2017 Hospital discharge follow-up Z09 ; Chest pain, unspecified type R07.9 ; Coronary artery disease involving [place] coronary artery of [place] heart with angina pectoris I25.119 and Gastroesophageal reflux disease without esophagitis K21.9 [place] [id number] [place] [address] 62799- 4870 Nov, PTSD (post-traumatic stress disorder) F43.10 and Moderate episode of recurrent major depressive disorder F33.1 [place] [id number] [place] [address] 24464- 6287 Oct, Type 2 diabetes mellitus with diabetic polyneuropathy E11.42 [place] [id number] [place] [address] 87549- 8042 Oct, Diarrhea, unspecified type R19.7 ; Gastroesophageal reflux disease without esophagitis K21.9 and Vaginal discharge N89.8 [place] [id number] [place] [address] 17240- 0818 Oct, Type 2 diabetes mellitus with diabetic polyneuropathy E11.42 [place] [address] [place] [address] 12203- 5847 Oct, Hyperlipidemia LDL goal <70 E78.5 [facility] [id number] [place] [address] 96601- 7509 Oct, Atherosclerotic heart disease of [place] coronary artery without angina pectoris I25.10 ; Coronary artery disease involving [place] heart with angina pectoris, unspecified vessel or lesion type I25.119 ; Type 2 diabetes mellitus with diabetic polyneuropathy E11.42 ; Hyperlipidemia LDL goal <70 E78.5 ; Cigarette smoker F17.210 and Post-traumatic stress reaction F43.10 [place] [id number] [place] [address] 02982- 7481 Oct, [facility] [id number] [place] [address] 73689- 6211 Oct, Difficulty breathing R06.89 ; Hospital discharge follow-up Z09 and Bilateral lower extremity edema R60.0 [facility] [id number] [place] [address] 68713- 1973 Oct, [facility] [id number] [place] [address] 91823 -8893 Oct, Dependent edema R60.9 [facility] [id number] [place] [address] 84276- 2087 Oct, [facility] [id number] [place] [address] 53409- 9641 Oct, [facility] [id number] [place] [address] 93564- 8816 Oct, Type 2 diabetes mellitus with diabetic polyneuropathy E11.42 [facility] [id number] [place] [address] 33652- 2935 Oct, [facility] [id number] [place] [address] 36940- 0911 Sep, [facility] [id number] [place] [address] 65030- 8200 August, [facility] [address], [place] [address]- 5278 Jul, [facility] [id number] [place] [address] 76545- 9885 Jul, Establishing care with new doctor, encounter for Z76.89 ; Type 2 diabetes mellitus with diabetic polyneuropathy E11.42 ; padder 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 Z79.4 ; Hyperlipidemia LDL goal <70 E78.5 ; Essential hypertension I10 and Chest pain, unspecified type R07.9 [facility] [address] [address]- [address] Jul, [facility] [id number] [place] [address] 64126- 0699 Jul, [facility] [id number] [place] [address] 82412- 9055 Jun, [facility] [id number] [place] [address] 43595- 9042 Jun, [facility] [id number] [place] [address] 84243- 2418 Jun, [facility] [id number] [place] [address] 32554- 3930 Jun, Acute hyperglycemia R73.9 ; Type 2 diabetes mellitus with diabetic polyneuropathy E11.42 ; padder 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 Z79.4 ; HTN, goal below 130/80 I10 and Hyperlipidemia LDL goal <70 E78.5 [facility] [address], [place] [address] August, [facility] [id number] [place] [address] 44917 -5351 August, [facility] [address] [place] [address] 62667 -5255 August, Acute vaginitis N76.0 ; Trichomonas vaginitis A59.01 and Vaginal discharge N89.8 IMMUNIZATIONS No Known Immunizations SOCIAL HISTORY Never Assessed REASON FOR VISIT New provider visit/Diabetes f/u-twooden,RMA, pt was having chest pain went to the hospital and they put in two stents, pt is still having chest pain PLAN OF CARE Activity Details Follow Up prn. 3 months or as indicated by lab Reason: VITAL SIGNS Height 62 in 2018-03-13 Weight 155.2 lbs 2018-03-13 Temperature 98.3 degrees Fahrenheit 2018-03-13 Heart Rate 113 bpm 2018-03-13 Respiratory Rate 18 2018-03-13 Oximetry on room air:97 % 2018-03-13 BMI 28.38 kg/m2 2018-03-13 Blood pressure systolic 112 mmHg 2018-03-13 Blood pressure diastolic 86 mmHg 2018-03-13 MEDICATIONS Medication Instructions Dosage Frequency Start Date End Date Duration Status Pen Cosby 31G X 6 MM Active Blood Glucose Test Strip test strips One Touch Verio strip and Delica lancet 3 times a day test blood sugar 8h Jun, 30 days Active Zoloft 100 mg Orally Once a day 1.5 tablets 24h Nov, Active Humalog KwikPen 100 UNIT/ML Subcutaneous 3 times a day before meals Inject 15 Units with meals Active Pantoprazole Sodium 40 mg Orally Once a day 1 tablet 24h Nov, 30 day(s) Active Atorvastatin Calcium 80 MG Orally Once a day 1 tablet 24h 30 days Active Lisinopril 5 mg Orally Once a day 1 tablet 24h Jul, 30 day(s) Active Blood Glucose Monitor System w/Device as directed Jun, Active Isosorbide Mononitrate ER 30 MG Orally Once a day 1 tablet in the morning 24h Nov, 30 day(s) Active Amitriptyline HCl 25 MG Orally Once a day at bedtime 1 tablet Nov, Active Levemir FlexTouch 100 UNIT/ML Subcutaneous 2 times a day 20 Units 12h Active HydrOXYzine HCl 25 MG Orally every 8 hrs 1 tablet as needed 8h Feb, 30 day(s) Active Gabapentin 300 MG Orally Three times a day 1 capsule 8h 30 Active Victoza 18 MG/3ML Subcutaneous daily 1.8 mg 24h 06 Dec, 2017 Active Plavix 75 MG Orally Once a day 1 tablet 24h Oct, 30 days Active Metformin HCl 1000 MG Orally Twice a day 1 tablet with meals 12h Active Ranexa 500 MG Orally Twice a day 1 tablet 12h Feb, 30 day(s) Active RESULTS No Results PROCEDURES No Known procedures INSTRUCTIONS MEDICATIONS ADMINISTERED No Known Medications MEDICAL (GENERAL) HISTORY Type Description Date Medical History Type 2 diabetes mellitus with diabetic polyneuropathy Medical History padder 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 Medical History HTN, goal below 130/80 Medical History Hyperlipidemia LDL goal < 70 Medical History Left Lower Nodule 9mm stable Medical History stents X2 Surgical History C-Sectionx3 Surgical History Left breast surgery for yeast Surgical History Tubal Ligation Surgical History Cardiac Cath 12/03/2017 Surgical History stents x2 03/08/2018 Hospitalization History Surgers/Child Hospitalization History ER visit for Hyperglycemia 10/16/2017 Hospitalization History surgery angio 10/25/2017 Hospitalization History chest pain- observation ICU 11/16/17 Hospitalization History Chest pain/Hyperglycemia [facility] x1 night 11/22/17 Hospitalization History Chest pain 12/03/2017 Hospitalization History [facility] 02/22/2018 Hospitalization History stents 03/08/2018
--- OUTSIDE RECORDS SUMMARY | 2018-03-28 19:56 | XMS REPORT | Clinical Summary ---
Author Author [facility] Organization [facility] Address Unknown Phone Unavailable Care Team Providers Care Supply Chain Design Manager Name Role Phone Alfred Diaz MD PCP Unavailable Source Comments Some departments are not documenting in the electronic medical record. If you do not see the information that you expected, contact Release of Information in the Health Information Management department at [phone] for further assistance in locating additional records.[facility] Allergies Not on File Medications Not on file Active Problems Not on file Social History Date Tobacco Use Types Packs/Day Years Used Never Assessed Sex Assigned at Date Recorded Not on file Industry Job Start Date Occupation Not on file Not on file Not on file Travel End Travel History Travel Start No recent travel history available. Last Filed Vital Signs Not on file Plan of Treatment Health Maintenance Due Date Last Done Comments PHYSICAL (COMPREHENSIVE) 02/02/1988 EXAM HIV SCREENING 02/02/1996 DTAP/TDAP VACCINES (1 - 1999 Tdap) CERVICAL CANCER SCREENING 2011 INFLUENZA VACCINE 11/14/2017 Results Not on filefrom Last 3 Months Insurance Payer Benefit Subscriber ID Type Phone Address Plan / Group [facility] xxxxxxxxxxx Medicaid [employer] [place] Advance Directives Patient has advance care planning documents on file. For more information, please contact: [facility] [address] [place] [address]
--- OUTSIDE RECORDS SUMMARY | 2018-03-28 19:56 | XMS REPORT ---
Author Author NEW LE Organization [facility] Address [address] [place] [address] Care Team Providers Care Sterile Preparation Technician Name Role Phone NEW LE Unavailable PROBLEMS Type Condition ICD9-CM Code DAT39-CQ Code Onset Dates Condition Status SNOMED Code Problem Cigarette smoker F17.210 Active 14480868 Problem Gastroesophageal reflux disease without esophagitis K21.9 Active 483801419 Problem Coronary artery disease involving [place] heart with angina pectoris, unspecified vessel or lesion type I25.119 Active 86574975 Problem Carpal tunnel syndrome on both sides G56.03 Active [id number] Problem 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 Active [id number] Problem Moderate episode of recurrent major depressive disorder F33.1 Active 199985270 Problem PTSD (post-traumatic stress disorder) F43.10 Active 24662828 Problem Restless leg syndrome G25.81 Active 70540701 Problem 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.119 Active 7906191984704 Problem Elevated BUN R79.9 Active 041203692 Problem PVC (premature ventricular contraction) I49.3 Active 21980791 Problem Hyperlipidemia LDL goal <70 E78.5 Active 73275129 Problem Chest pain, unspecified type R07.9 Active 57348625 Problem [facility] 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 Z79.4 Active 243962442 Problem Essential hypertension I10 Active 58197760 Problem Type 2 diabetes mellitus with diabetic polyneuropathy E11.42 Active 60224734 Problem Atherosclerotic heart disease of [place] coronary artery without angina pectoris I25.10 Active [id number] ALLERGIES No Information ENCOUNTERS Encounter Location Date Diagnosis [facility] [address] [facility] [id number] [address] Mar, [facility] [id number] [address] Mar, [facility] [id number], [place] [address] Mar, PTSD (post-traumatic stress disorder) F43.10 [facility] [id number] [place] [address]95- 5009 Mar, Hyperlipidemia LDL goal <70 E78.5 and Coronary artery disease involving [place] heart with angina pectoris, unspecified vessel or lesion type I25.119 [facility] [id number] [place] [address] 93935- 7419 Mar, [facility] [id number] [place] [address] 11279- 9927 Feb, Coronary artery disease involving [place] heart with angina pectoris, unspecified vessel or lesion type I25.119 ; Type 2 diabetes mellitus with diabetic polyneuropathy E11.42 and Hospital discharge follow-up Z09 [id number] [place] [address] 13106- 3876 Feb, [facility] [id number] [place] [address] 20836- 6930 Feb, [facility] [id number] [place] [address] 15361- 0491 Feb, Type 2 diabetes mellitus with diabetic polyneuropathy E11.42 [facility] [id number] [place] [address] 22792- 0761 Feb, [facility] [id number] [place] [address] 06308- 8837 Feb, [facility] [id number] [place] [address] 36086- 9165 Jan, [facility] [id number] [place] [address] 20592- 3999 Jan, Carpal tunnel syndrome on both sides G56.03 [facility] [id number] [place] [address] 44238- 4194 Jan, PTSD (post-traumatic stress disorder) F43.10 and Moderate episode of recurrent major depressive disorder F33.1 [facility] [id number] [address] Jan, [facility] [id number] [place] [id number] Jan, PTSD (post-traumatic stress disorder) F43.10 and Moderate episode of recurrent major depressive disorder F33.1 [facility] [id number] [place] [address] 57344- 3051 Jan, Type 2 diabetes mellitus with diabetic polyneuropathy E11.42 [place] [id number] [place], [place] [address] Jan, PTSD (post-traumatic stress disorder) F43.10 and Moderate episode of recurrent major depressive disorder F33.1 [place] [id number] [place] [address] 93582- 1929 Jan, PTSD (post-traumatic stress disorder) F43.10 and Moderate episode of recurrent major depressive disorder F33.1 [facility] [id number] [place] [address] 71335- 5002 Jan, [facility] [id number] [place] [address] 25959 -4088 Jan, Pain of left hand M79.642 and Pain in right hand M79.641 [facility] [id number] [address] Jan, [facility] [id number] [place] [address] 92142- 1466 Dec, Bilateral hand numbness R20.0 [facility] [id number] [place] [address] 62674- 6540 Dec, PTSD (post-traumatic stress disorder) F43.10 and Moderate episode of recurrent major depressive disorder F33.1 [facility] [id number] [place] [address] 51012- 9703 Dec, Type 2 diabetes mellitus with diabetic polyneuropathy E11.42 [place] [id number] [place] [address] 72943- 7227 Dec, [place] [id number] [place] [address] 64622- 2158 Dec, Type 2 diabetes mellitus with diabetic polyneuropathy E11.42 and 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 [address] [id number] [place] [address] 21385- 1534 Dec, Bilateral hand numbness R20.0 [address] [id number] [place] [address] 56493- 8573 Dec, Moderate episode of recurrent major depressive disorder F33.1 ; Type 2 diabetes mellitus with diabetic polyneuropathy E11.42 ; terminal operations manager 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 Z79.4 ; Hyperlipidemia LDL goal <70 E78.5 ; Chest pain, unspecified type R07.9 ; Atherosclerotic heart disease of [place] coronary artery without angina pectoris I25.10 ; Cigarette smoker F17.210 ; Gastroesophageal reflux disease without esophagitis K21.9 and Restless leg syndrome G25.81 [place] [id number] [place] [address] 88209- 9886 Dec, PTSD (post-traumatic stress disorder) F43.10 and Moderate episode of recurrent major depressive disorder F33.1 [place] [id number] [place] [address] 71360- 3765 Dec, Moderate episode of recurrent major depressive disorder F33.1 [place] [id number] [place] [address] 12917- 8901 Dec, [place] [id number] [place] [address] 41591- 2660 Dec, [place] [id number] [place] [address] 91483- 8626 Dec, Uncontrolled type 2 diabetes mellitus with hyperglycemia E11.65 and Flatulence/gas pain/belching R14.0 [place] [id number] [place] [address] 55195- 4405 Nov, [place] [address] 26195- [address]67 Nov, PTSD (post-traumatic stress disorder) F43.10 and Moderate episode of recurrent major depressive disorder F33.1 [place] [id number] [place] [address] 27101- 8919 Nov, Chest pain, unspecified type R07.9 ; 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.119 ; Restless leg syndrome G25.81 ; Hospital discharge follow-up Z09 and Type 2 diabetes mellitus with diabetic polyneuropathy E11.42 [place] [id number] [place] [address] 25527- 7886 Nov, Hyperlipidemia LDL goal <[address] [address] Nov, Hospital discharge follow-up Z09 ; Chest pain, unspecified type R07.9 ; 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.119 and Gastroesophageal reflux disease without esophagitis K21.9 [place] [id number] [place] [address] 99150- 8524 Nov, PTSD (post-traumatic stress disorder) F43.10 and Moderate episode of recurrent major depressive disorder F33.1 [place] [id number] [place] [address] 89750- 4903 Oct, Type 2 diabetes mellitus with diabetic polyneuropathy E11.42 [place] [id number] [place] [address] 90178- 7372 Oct, Diarrhea, unspecified type R19.7 ; Gastroesophageal reflux disease without esophagitis K21.9 and Vaginal discharge N89.8 [place] [id number] [place] [address] 17896- 4037 Oct, Type 2 diabetes mellitus with diabetic polyneuropathy E11.42 [facility] [address], [place] [address] Oct, Hyperlipidemia LDL goal <70 E78.5 [facility] [id number] [place] [address] 27543- 8341 Oct, Atherosclerotic heart disease of [place] coronary artery without angina pectoris I25.10 ; Coronary artery disease involving [place] heart with angina pectoris, unspecified vessel or lesion type I25.119 ; Type 2 diabetes mellitus with diabetic polyneuropathy E11.42 ; Hyperlipidemia LDL goal <70 E78.5 ; Cigarette smoker F17.210 and Post-traumatic stress reaction F43.10 [place] [id number] [place] [address] 10203- 9831 Oct, [facility] [id number] [place] [address] 16310- 1192 Oct, Difficulty breathing R06.89 ; Hospital discharge follow-up Z09 and Bilateral lower extremity edema R60.0 [facility] [id number] [place] [address] 87882- 4066 Oct, [facility] [id number] [place] [address] 24903 -[phone] Oct, Dependent edema R60.9 [facility] [id number] [place] [address] 20193- 1993 Oct, [facility] [id number] [place] [address] 65151- 0898 Oct, [facility] [id number] [place] [address] 63268- 9639 Oct, Type 2 diabetes mellitus with diabetic polyneuropathy E11.42 [facility] [id number] [place] [address] 43202- 6484 Oct, [facility] [id number] [place] [address] 78438- 1828 Sep, [facility] [id number] [address] August, [facility] [id number] [address] Jul, [facility] [id number] [place] [address] 48615- 3385 Jul, Establishing care with new doctor, encounter for Z76.89 ; Type 2 diabetes mellitus with diabetic polyneuropathy E11.42 ; [facility] 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 Z79.4 ; Hyperlipidemia LDL goal <70 E78.5 ; Essential hypertension I10 and Chest pain, unspecified type R07.9 [facility] [id number] [place] [address] 83232- 0389 Jul, [facility] [id number] [place] [address] 56985- 4237 Jul, [facility] [id number] [place] [address] 50703- 0231 Jun, [facility] [id number] [address] Jun, [facility] [id number] [place] [address] 25327- 7205 Jun, [facility] [id number] [place] [address] 08112- 9872 Jun, Acute hyperglycemia R73.9 ; Type 2 diabetes mellitus with diabetic polyneuropathy E11.42 ; terminal operations manager 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
--- OUTSIDE RECORDS SUMMARY | 2018-03-28 19:56 | XMS REPORT ---
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 Active 09032465 Problem Carpal tunnel syndrome on both sides G56.03 Active 59177533435256282 Problem 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 Active 99943957035018125 Problem Moderate episode of recurrent major depressive disorder F33.1 Active 335850632 Problem PTSD (post-traumatic stress disorder) F43.10 Active 05355389 Problem Restless leg syndrome G25.81 Active 48889193 Problem Coronary artery disease involving barrow coronary artery of barrow heart with angina pectoris I25.119 Active 3362844262567 Problem Elevated BUN R79.9 Active 980651997 Problem PVC (premature ventricular contraction) I49.3 Active 21238165 Problem Hyperlipidemia LDL goal <70 E78.5 Active 70957090 Problem Chest pain, unspecified type R07.9 Active 60695960 Problem longterm current use of insulin Z79.4 Active 622459451 Problem Essential hypertension I10 Active 47682538 Problem Type 2 diabetes mellitus with diabetic polyneuropathy E11.42 Active 40604899 Problem Atherosclerotic heart disease of barrow coronary artery without angina pectoris I25.10 Active 732423905 ALLERGIES No Information ENCOUNTERS Encounter Location Date Diagnosis [facility] [address] [facility] [id number] [address] Mar, [facility] [id number] [address] Mar, PTSD (post-traumatic stress disorder) F43.10 [facility] [address] [place] [address]87- 4357 Mar, Hyperlipidemia LDL goal <70 E78.5 and 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, unspecified vessel or lesion type I25.119 [facility] [id number] [place] [address] 91607- 1261 Mar, [facility] [address] [address] Feb, 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, unspecified vessel or lesion type I25.119 ; Type 2 diabetes mellitus with diabetic polyneuropathy E11.42 and Hospital discharge follow-up Z09 [facility] [id number] [place] [address] 88318- 6551 Feb, [place] [id number] [place] [address] 28599- 2018 Feb, [facility] [id number] [place] [address] 38106- 5135 Feb, Type 2 diabetes mellitus with diabetic polyneuropathy E11.42 [place] [id number] [place] [address] 36234- 1412 Feb, [facility] [id number] [place] [address] 88695- 6948 Feb, [facility] [id number] [place] [address] 19682- 9648 Jan, [facility] [id number] [place] [address] 13036- 0663 Jan, Carpal tunnel syndrome on both sides G56.03 [facility] [id number] [place] [address] 02874- 7864 Jan, PTSD (post-traumatic stress disorder) F43.10 and Moderate episode of recurrent major depressive disorder F33.1 [place] [address] [id number] [address] Jan, [facility] [id number] [place] [address] 35659- 2047 Jan, PTSD (post-traumatic stress disorder) F43.10 and Moderate episode of recurrent major depressive disorder F33.1 [facility] [id number] [place] [address] 25604- 8236 Jan, Type 2 diabetes mellitus with diabetic polyneuropathy E11.42 [facility] [id number] [place] [address] 30558- 5607 Jan, PTSD (post-traumatic stress disorder) F43.10 and Moderate episode of recurrent major depressive disorder F33.1 [facility] [id number] [place] [address] 60389- 8005 Jan, PTSD (post-traumatic stress disorder) F43.10 and Moderate episode of recurrent major depressive disorder F33.1 [facility] [id number] [place] [address] 37813- 1551 Jan, [facility] [id number] [place] [address] 88931 -3595 Jan, Pain of left hand M79.642 and Pain in right hand M79.641 [facility] [id number] [place] [address] 46903- 2589 Jan, [facility] [id number] [place] [address] 79015- 9442 Dec, Bilateral hand numbness R20.0 [facility] [id number] [place] [address] 77830- 8216 Dec, PTSD (post-traumatic stress disorder) F43.10 and Moderate episode of recurrent major depressive disorder F33.1 [facility] [address] [address] Dec, Type 2 diabetes mellitus with diabetic polyneuropathy E11.42 [facility] [address] [place] [address] Dec, [place] [id number] [place] [address] 49656- 9150 Dec, Type 2 diabetes mellitus with diabetic polyneuropathy E11.42 and 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 [place] [id number] [place] [address] 70253- 6118 Dec, Bilateral hand numbness R20.0 [place] [address] 86000- 9597 18 Dec, 2017 Moderate episode of recurrent major depressive disorder F33.1 ; Type 2 diabetes mellitus with diabetic polyneuropathy E11.42 ; longterm current use of insulin Z79.4 ; Hyperlipidemia LDL goal <70 E78.5 ; Chest pain, unspecified type R07.9 ; Atherosclerotic heart disease of barrow coronary artery without angina pectoris I25.10 ; Cigarette smoker F17.210 ; Gastroesophageal reflux disease without esophagitis K21.9 and Restless leg syndrome G25.81 [place] [id number] [place] [address] 58325- 7935 Dec, PTSD (post-traumatic stress disorder) F43.10 and Moderate episode of recurrent major depressive disorder F33.1 [place] [id number] [place] [address] 83641- 3793 Dec, Moderate episode of recurrent major depressive disorder F33.1 [place] [id number] [place] [address] 63634- 8304 Dec, [place] [id number] [place] [address] 02105- 1302 Dec, [place] [address] [address]38- 9911 Dec, Uncontrolled type 2 diabetes mellitus with hyperglycemia E11.65 and Flatulence/gas pain/belching R14.0 [place] [id number] [place] [address] 81064- 3626 Nov, [place] [address] [place] [address] 16678- 1593 Nov, PTSD (post-traumatic stress disorder) F43.10 and Moderate episode of recurrent major depressive disorder F33.1 [place] [id number] [place] [address] 89045- 8002 Nov, Chest pain, unspecified type R07.9 ; Coronary artery disease involving barrow coronary artery of barrow heart with angina pectoris I25.119 ; Restless leg syndrome G25.81 ; Hospital discharge follow-up Z09 and Type 2 diabetes mellitus with diabetic polyneuropathy E11.42 [place] [id number] [place] [address] 92281- 7123 Nov, Hyperlipidemia LDL goal <70 E78.5 [place] [id number] [place] [address] 31172- 9686 Nov, Hospital discharge follow-up Z09 ; Chest pain, unspecified type R07.9 ; Coronary artery disease involving barrow coronary artery of barrow heart with angina pectoris I25.119 and Gastroesophageal reflux disease without esophagitis K21.9 [place] [id number] [place] [address] 08175- 0015 Nov, PTSD (post-traumatic stress disorder) F43.10 and Moderate episode of recurrent major depressive disorder F33.1 [place] [address] [place] [address] 42420- 1590 Oct, Type 2 diabetes mellitus with diabetic polyneuropathy E11.42 [place] [id number] [place] [address] 57397- 2502 Oct, Diarrhea, unspecified type R19.7 ; Gastroesophageal reflux disease without esophagitis K21.9 and Vaginal discharge N89.8 [place] [id number] [place] [address] 60073- 5737 Oct, Type 2 diabetes mellitus with diabetic polyneuropathy E11.42 [place] [id number] [place] [address] 64227- 4029 Oct, Hyperlipidemia LDL goal <70 E78.5 [facility] [id number] [place] [address] 10837- 4632 Oct, Atherosclerotic heart disease of barrow coronary artery without angina pectoris I25.10 ; 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, unspecified vessel or lesion type I25.119 ; Type 2 diabetes mellitus with diabetic polyneuropathy E11.42 ; Hyperlipidemia LDL goal <70 E78.5 ; Cigarette smoker F17.210 and Post-traumatic stress reaction F43.10 [facility] [id number] [place] [address] 17637- 0137 Oct, [facility] [id number] [place] [address] 54182- 6727 Oct, Difficulty breathing R06.89 ; Hospital discharge follow-up Z09 and Bilateral lower extremity edema R60.0 [place] [id number] [place] [address] 09887- 5706 Oct, [facility] [id number] [place] [address] 11305 -2086 Oct, Dependent edema R60.9 [facility] [id number] [place] [address] 75689- 9218 Oct, [facility] [id number] [place] [address] 27232- 4899 Oct, [facility] [id number] [place] [address] 85039- 2244 Oct, Type 2 diabetes mellitus with diabetic polyneuropathy E11.42 [facility] [id number] [place] [address] 70992- 8315 Oct, [facility] [id number] [place] [address] 55648- 2781 Sep, [facility] [id number] [place] [address] 94925- 1319 August, [facility] [id number] [place] [address] 75239- 9278 Jul, [facility] [id number] [place] [address] 12357- 3337 Jul, Establishing care with new doctor, encounter for Z76.89 ; Type 2 diabetes mellitus with diabetic polyneuropathy E11.42 ; 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 of insulin Z79.4 ; Hyperlipidemia LDL goal <70 E78.5 ; Essential hypertension I10 and Chest pain, unspecified type R07.9 [facility] [id number] [place] [address] 66851- 7120 Jul, [facility] [id number] [place] [address] 67503- 1439 Jul, [facility] [id number] [place] [address] 23123- 9065 Jun, [place] [id number] [place] [address] 44536- 4003 Jun, [facility] [id number] [place] [address] 91869- 9013 Jun, [facility] [id number] [place] [address] 09027- 6273 Jun, Acute hyperglycemia R73.9 ; Type 2 diabetes mellitus with diabetic polyneuropathy E11.42 ; longterm current use of insulin Z79.4 ; HTN, goal below 130/80 I10 and Hyperlipidemia LDL goal <70 E78.5 [facility] [id number] [place] [address] 62002 -4868 August, [facility] [id number] [place] [address] 65056 -6718 August, [facility] [id number] [place] [address] 07620 -0048 August, Acute vaginitis N76.0 ; Trichomonas vaginitis A59.01 and Vaginal discharge N89.8 IMMUNIZATIONS No Known Immunizations SOCIAL HISTORY Never Assessed REASON FOR VISIT DCF paperwork PLAN OF CARE VITAL SIGNS MEDICATIONS Unknown Medications RESULTS No Results PROCEDURES No Known procedures INSTRUCTIONS MEDICATIONS ADMINISTERED No Known Medications MEDICAL (GENERAL) HISTORY Type Description Date Medical History Type 2 diabetes mellitus with diabetic polyneuropathy Medical History intermodal 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
--- OUTSIDE RECORDS SUMMARY | 2018-03-28 19:57 | XMS REPORT ---
Author Author ALBER PRICE [facility] Address [address] [place], [place] [id number] Care Team Providers Care Youth Services Specialist Name Role Phone ALBER PRICE Unavailable PROBLEMS Type Condition ICD9-CM Code [id number] Code Onset Dates Condition Status SNOMED Code Problem Cigarette smoker F17.210 Active 16656047 Problem Gastroesophageal reflux disease without esophagitis K21.9 Active 724599468 Problem Coronary artery disease involving [place] heart with angina pectoris, unspecified vessel or lesion type I25.119 Active 41871377 Problem Carpal tunnel syndrome on both sides G56.03 Active 30711149580067238 Problem Atherosclerotic heart disease of [place] coronary artery with unstable angina pectoris I25.110 Active 51488215486264308 Problem Moderate episode of recurrent major depressive disorder F33.1 Active 349730683 Problem PTSD (post-traumatic stress disorder) F43.10 Active 20774473 Problem Restless leg syndrome G25.81 Active 44956894 Problem Coronary artery disease involving [place] coronary artery of [place] heart with angina pectoris I25.119 Active 7260412597236 Problem Elevated BUN R79.9 Active 738631780 Problem PVC (premature ventricular contraction) I49.3 Active 70953123 Problem Hyperlipidemia LDL goal <70 E78.5 Active 04861694 Problem Chest pain, unspecified type R07.9 Active 79865730 Problem intermediate manager current use of insulin Z79.4 Active 898295875 Problem Essential hypertension I10 Active 29678481 Problem Type 2 diabetes mellitus with diabetic polyneuropathy E11.42 Active 97519159 Problem Atherosclerotic heart disease of [place] coronary artery without angina pectoris I25.10 Active 411790258 ALLERGIES No Information ENCOUNTERS Encounter Location Date Diagnosis [facility] [address] [facility]NOTE 3[address] [id number] [address] Mar, [facility] [address] [id number] [address] Mar, PTSD (post-traumatic stress disorder) F43.10 [facility] [id number] [place] [address] 23682[address] 6623 Mar, Hyperlipidemia LDL goal <70 E78.5 and Coronary artery disease involving [place] heart with angina pectoris, unspecified vessel or lesion type I25.119 [facility] [id number] [place] [address] 92166- 0158 Mar, [facility] [address] [address] Feb, Coronary artery disease involving [place] heart with angina pectoris, unspecified vessel or lesion type I25.119 ; Type 2 diabetes mellitus with diabetic polyneuropathy E11.42 and Hospital discharge follow-up Z09 [facility] [id number] [place] [address] 27126- 1095 Feb, [place] [id number] [place] [address] 17060- 5730 Feb, [facility] [id number] [place] [address] 26700- 8091 Feb, Type 2 diabetes mellitus with diabetic polyneuropathy E11.42 [place] [id number] [place] [address] 92323- 3578 Feb, [facility] [id number] [place] [address] 70987- 5441 Feb, [facility] [id number] [place] [address] 39543- 0989 Jan, [facility] [id number] [place] [address] 47841- 1310 Jan, Carpal tunnel syndrome on both sides G56.03 [facility] [id number] [place] [address] 99487- 2770 Jan, PTSD (post-traumatic stress disorder) F43.10 and Moderate episode of recurrent major depressive disorder F33.1 [place] [address] [id number] [address] Jan, [facility] [id number] [place] [address] 16536- 9377 Jan, PTSD (post-traumatic stress disorder) F43.10 and Moderate episode of recurrent major depressive disorder F33.1 [facility] [id number] [place] [address] 67955- 1211 Jan, Type 2 diabetes mellitus with diabetic polyneuropathy E11.42 [facility] [id number] [place] [address] 20962- 5327 Jan, PTSD (post-traumatic stress disorder) F43.10 and Moderate episode of recurrent major depressive disorder F33.1 [facility] [id number] [place] [address] 38234- 9971 Jan, PTSD (post-traumatic stress disorder) F43.10 and Moderate episode of recurrent major depressive disorder F33.1 [facility] [id number] [place] [address] 92946- 7379 Jan, [facility] [id number] [place] [address] 47032 -2803 Jan, Pain of left hand M79.642 and Pain in right hand M79.641 [facility] [id number] [place] [address] 12352- 0876 Jan, [facility] [id number] [place] [address] 98097- 5695 Dec, Bilateral hand numbness R20.0 [facility] [id number] [place] [address] 83340- 7311 Dec, PTSD (post-traumatic stress disorder) F43.10 and Moderate episode of recurrent major depressive disorder F33.1 [facility] [address] [address] Dec, Type 2 diabetes mellitus with diabetic polyneuropathy E11.42 [facility] [address] [place] [address] Dec, [place] [id number] [place] [address] 08701- 0286 Dec, Type 2 diabetes mellitus with diabetic polyneuropathy E11.42 and Atherosclerotic heart disease of [place] coronary artery with unstable angina pectoris I25.110 [place] [id number] [place] [address] 37824- 5341 Dec, Bilateral hand numbness R20.0 [place] [address] [address]84- 0496 18 Dec, 2017 Moderate episode of recurrent major depressive disorder F33.1 ; Type 2 diabetes mellitus with diabetic polyneuropathy E11.42 ; custodial current use of insulin Z79.4 ; Hyperlipidemia LDL goal <70 E78.5 ; Chest pain, unspecified type R07.9 ; Atherosclerotic heart disease of [place] coronary artery without angina pectoris I25.10 ; Cigarette smoker F17.210 ; Gastroesophageal reflux disease without esophagitis K21.9 and Restless leg syndrome G25.81 [place] [id number] [place] [address] 68672- 4447 Dec, PTSD (post-traumatic stress disorder) F43.10 and Moderate episode of recurrent major depressive disorder F33.1 [place] [id number] [place] [address] 69929- 6413 Dec, Moderate episode of recurrent major depressive disorder F33.1 [place] [id number] [place] [address] 62037- 4012 Dec, [place] [id number] [place] [address] 80020- 1726 Dec, [place] [address] 283[address]- [address]226 Dec, Uncontrolled type 2 diabetes mellitus with hyperglycemia E11.65 and Flatulence/gas pain/belching R14.0 [place] [id number] [place] [address] 63558- 4445 Nov, [place] [id number] [place] [address] 33508- 9517 Nov, PTSD (post-traumatic stress disorder) F43.10 and Moderate episode of recurrent major depressive disorder F33.1 [place] [id number] [place] [address] 33153- 5880 Nov, Chest pain, unspecified type R07.9 ; Coronary artery disease involving [place] coronary artery of [place] heart with angina pectoris I25.119 ; Restless leg syndrome G25.81 ; Hospital discharge follow-up Z09 and Type 2 diabetes mellitus with diabetic polyneuropathy E11.42 [place] [id number] [place] [address] 50294- 0419 Nov, Hyperlipidemia LDL goal <70 E78.5 [place] [id number] [place] [address] 88052- 8663 Nov, Hospital discharge follow-up Z09 ; Chest pain, unspecified type R07.9 ; Coronary artery disease involving [place] coronary artery of [place] heart with angina pectoris I25.119 and Gastroesophageal reflux disease without esophagitis K21.9 [place] [id number] [place] [address] 89023- 5652 Nov, PTSD (post-traumatic stress disorder) F43.10 and Moderate episode of recurrent major depressive disorder F33.1 [place] [id number] [place] [address] 20995- 7206 Oct, Type 2 diabetes mellitus with diabetic polyneuropathy E11.42 [place] [id number] [place] [address] 15867- 8847 Oct, Diarrhea, unspecified type R19.7 ; Gastroesophageal reflux disease without esophagitis K21.9 and Vaginal discharge N89.8 [place] [id number] [place] [address] 37270- 2875 Oct, Type 2 diabetes mellitus with diabetic polyneuropathy E11.42 [place] [id number] [place] [address] 07550- 9179 Oct, Hyperlipidemia LDL goal <70 E78.5 [facility] [id number] [place] [address] 15873- 5819 Oct, Atherosclerotic heart disease of [place] coronary artery without angina pectoris I25.10 ; Coronary artery disease involving [place] heart with angina pectoris, unspecified vessel or lesion type I25.119 ; Type 2 diabetes mellitus with diabetic polyneuropathy E11.42 ; Hyperlipidemia LDL goal <70 E78.5 ; Cigarette smoker F17.210 and Post-traumatic stress reaction F43.10 [facility] [id number] [place] [address] 90678- 6881 Oct, [facility] [id number] [place] [address] 26276- 2508 Oct, Difficulty breathing R06.89 ; Hospital discharge follow-up Z09 and Bilateral lower extremity edema R60.0 [place] [id number] [place] [address] 04179- 1279 Oct, [facility] [id number] [place] [address] 68308 -2501 Oct, Dependent edema R60.9 [facility] [id number] [place] [address] 33041- 2040 Oct, [facility] [id number] [place] [address] 42947- 3768 Oct, [facility] [id number] [place] [address] 76617- 1015 Oct, Type 2 diabetes mellitus with diabetic polyneuropathy E11.42 [facility] [id number] [place] [address] 95592- 8503 Oct, [facility] [id number] [place] [address] 05576- 5275 Sep, [facility] [id number] [place] [address] 94084- 9049 August, [facility] [id number] [place] [address] 96903- 6064 Jul, [facility] [id number] [place] [address] 89645- 4014 Jul, Establishing care with new doctor, encounter for Z76.89 ; Type 2 diabetes mellitus with diabetic polyneuropathy E11.42 ; custodial current use of insulin Z79.4 ; Hyperlipidemia LDL goal <70 E78.5 ; Essential hypertension I10 and Chest pain, unspecified type R07.9 [facility] [id number] [place] [address] 13677- 0630 Jul, [facility] [id number] [place] [address] 17831- 9853 Jul, [facility] [id number] [place] [address] 41553- 1668 Jun, [place] [id number] [place] [address] 13061- 4805 Jun, [facility] [id number] [place] [address] 02364- 1036 Jun, [facility] [id number] [place] [address] 65822- 6784 Jun, Acute hyperglycemia R73.9 ; Type 2 diabetes mellitus with diabetic polyneuropathy E11.42 ; custodial current use of insulin Z79.4 ; HTN, goal below 130/80 I10 and Hyperlipidemia LDL goal <70 E78.5 [facility] [id number] [place] [address] 30849 -4021 August, [facility] [id number] [place] [address] 91561 -0167 August, [facility] [id number] [place] [address] 33321 -0998 August, Acute vaginitis N76.0 ; Trichomonas vaginitis A59.01 and Vaginal discharge N89.8 IMMUNIZATIONS No Known Immunizations SOCIAL HISTORY Never Assessed REASON FOR VISIT lab PLAN OF CARE Activity Details Pending Test BMP Pending Test MAGNESIUM SERUM Pending Test CBC w/MANUAL DIFF Pending Test LIPID PANEL VITAL SIGNS MEDICATIONS Unknown Medications RESULTS No Results PROCEDURES Procedure Date Ordered Result Body Site LIPID PANEL Mar 20, 2018 BASIC METABOLIC PANEL Mar 20, 2018 MANUAL CELL COUNT, EACH Mar 20, 2018 ASSAY OF MAGNESIUM Mar 20, 2018 INSTRUCTIONS MEDICATIONS ADMINISTERED No Known Medications MEDICAL (GENERAL) HISTORY Type Description Date Medical History Type 2 diabetes mellitus with diabetic polyneuropathy 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
--- OUTSIDE RECORDS SUMMARY | 2018-03-28 19:57 | XMS REPORT ---
Author Author STEFFEN VANESSA [facility] Address [address] [place] [address] Care Team Providers Care Cost Estimating Manager Name Role Phone STEFFEN VANESSA Unavailable PROBLEMS Type Condition ICD9-CM Code ULB79-OB Code Onset Dates Condition Status SNOMED Code Problem Cigarette smoker F17.210 Active 68955154 Problem Gastroesophageal reflux disease without esophagitis K21.9 Active 960309978 Problem Coronary artery disease involving [place] heart with angina pectoris, unspecified vessel or lesion type I25.119 Active 32327466 Problem Carpal tunnel syndrome on both sides G56.03 Active 44222556398916852 Problem 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 Active [id number] Problem Moderate episode of recurrent major depressive disorder F33.1 Active 887377830 Problem PTSD (post-traumatic stress disorder) F43.10 Active 04336136 Problem Restless leg syndrome G25.81 Active 55993811 Problem Coronary artery disease involving [place] coronary artery of [place] heart with angina pectoris I25.119 Active 6442583002457 Problem Elevated BUN R79.9 Active 594889096 Problem PVC (premature ventricular contraction) I49.3 Active 14679733 Problem Hyperlipidemia LDL goal <70 E78.5 Active 72051757 Problem Chest pain, unspecified type R07.9 Active 88795377 Problem 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 Active 904364036 Problem Essential hypertension I10 Active 64012698 Problem Type 2 diabetes mellitus with diabetic polyneuropathy E11.42 Active 18197917 Problem Atherosclerotic heart disease of [place] coronary artery without angina pectoris I25.10 Active [id number] ALLERGIES No Information ENCOUNTERS Encounter Location Date Diagnosis [facility] [address] [facility] [id number] [address] Mar, [facility] [id number] [address] Mar, PTSD (post-traumatic stress disorder) F43.10 [facility] [id number] [place] [address]2354- [address]90 Mar, Hyperlipidemia LDL goal <70 E78.5 and Coronary artery disease involving [place] heart with angina pectoris, unspecified vessel or lesion type I25.119 [facility] [id number] [place] [address] 25658- 1142 Mar, [facility] [id number] [place] [address] 93589- 2142 Feb, Coronary artery disease involving [place] heart with angina pectoris, unspecified vessel or lesion type I25.119 ; Type 2 diabetes mellitus with diabetic polyneuropathy E11.42 and Hospital discharge follow-up Z09 [address] [place] [id number] [place] [address] 35984- 2744 Feb, [facility] [id number] [place] [address] 15662- 8331 Feb, [facility] [id number] [place] [address] 86926- 6258 Feb, Type 2 diabetes mellitus with diabetic polyneuropathy E11.42 [place] [id number] [place] [address] 42646- 8996 Feb, [facility] [id number] [place] [address] 31789- 0205 Feb, [facility] [id number] [place] [address] 04819- 7350 Jan, [facility] [id number] [place] [address] 35569- 3098 Jan, Carpal tunnel syndrome on both sides G56.03 [facility] [id number] [place] [address] 02499- 6178 Jan, PTSD (post-traumatic stress disorder) F43.10 and Moderate episode of recurrent major depressive disorder F33.1 [place] [id number] [address] Jan, [facility] [id number] [place] [address] 50089- 3852 Jan, PTSD (post-traumatic stress disorder) F43.10 and Moderate episode of recurrent major depressive disorder F33.1 [facility] [address] [address] Jan, Type 2 diabetes mellitus with diabetic polyneuropathy E11.42 [facility] [address] [address] Jan, PTSD (post-traumatic stress disorder) F43.10 and Moderate episode of recurrent major depressive disorder F33.1 [place] [address] [address] Jan, PTSD (post-traumatic stress disorder) F43.10 and Moderate episode of recurrent major depressive disorder F33.1 [place] [id number] [place] [address] 93700- 9517 Jan, [facility] [id number] [place] [address] 89983 -5503 Jan, Pain of left hand M79.642 and Pain in right hand M79.641 [facility] [address] [address] Jan, [facility] [id number] [place] [address] 21582- 2542 Dec, Bilateral hand numbness R20.0 [facility] [address], [place] [address] Dec, PTSD (post-traumatic stress disorder) F43.10 and Moderate episode of recurrent major depressive disorder F33.1 [facility] [address], [place] [address] Dec, Type 2 diabetes mellitus with diabetic polyneuropathy E11.42 [facility] [id number] [place] [address] 93675- 3122 Dec, [place] [id number] [place] [address] 89706- 0102 Dec, Type 2 diabetes mellitus with diabetic polyneuropathy E11.42 and 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 [place] [id number] [place] [address] 94762- 9571 Dec, Bilateral hand numbness R20.0 [place] [id number] [place] [address] 32561- 3532 Dec, Moderate episode of recurrent major depressive disorder F33.1 ; Type 2 diabetes mellitus with diabetic polyneuropathy E11.42 ; 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 ; Hyperlipidemia LDL goal <70 E78.5 ; Chest pain, unspecified type R07.9 ; Atherosclerotic heart disease of [place] coronary artery without angina pectoris I25.10 ; Cigarette smoker F17.210 ; Gastroesophageal reflux disease without esophagitis K21.9 and Restless leg syndrome G25.81 [place] [id number] [place] [address] 06675- 5938 Dec, PTSD (post-traumatic stress disorder) F43.10 and Moderate episode of recurrent major depressive disorder F33.1 [place] [id number] [place] [address] 60311- 1651 Dec, Moderate episode of recurrent major depressive disorder F33.1 [place] [id number] [place] [address]678- 1967 Dec, [place] [id number] [place] [address] 23696- 3657 Dec, [place] [id number] [place] [address] 23922- 3576 Dec, Uncontrolled type 2 diabetes mellitus with hyperglycemia E11.65 and Flatulence/gas pain/belching R14.0 [place] [id number] [place] [address] 33515- 3377 Nov, [place] [id number] [place] [address] 49040- 5917 Nov, PTSD (post-traumatic stress disorder) F43.10 and Moderate episode of recurrent major depressive disorder F33.1 [place] [id number] [place] [address] 95687- 2739 Nov, Chest pain, unspecified type R07.9 ; Coronary artery disease involving [place] coronary artery of [place] heart with angina pectoris I25.119 ; Restless leg syndrome G25.81 ; Hospital discharge follow-up Z09 and Type 2 diabetes mellitus with diabetic polyneuropathy E11.42 [place] [id number] [place] [address] 89477- 3260 Nov, Hyperlipidemia LDL goal <70 E78.5 [place] [id number] [place] [address] 10964- 1704 Nov, Hospital discharge follow-up Z09 ; Chest pain, unspecified type R07.9 ; Coronary artery disease involving [place] coronary artery of [place] heart with angina pectoris I25.119 and Gastroesophageal reflux disease without esophagitis K21.9 [place] [id number] [place] [address] 95853- 8908 Nov, PTSD (post-traumatic stress disorder) F43.10 and Moderate episode of recurrent major depressive disorder F33.1 [place] [id number] [place] [address] 11178- 3924 Oct, Type 2 diabetes mellitus with diabetic polyneuropathy E11.42 [place] [id number] [place] [address] 46410- 9553 Oct, Diarrhea, unspecified type R19.7 ; Gastroesophageal reflux disease without esophagitis K21.9 and Vaginal discharge N89.8 [place] [id number] [place] [address] 65878- 6461 Oct, Type 2 diabetes mellitus with diabetic polyneuropathy E11.42 [place] [id number] [place] [address] 49630- 2280 Oct, Hyperlipidemia LDL goal <70 E78.5 [facility] [id number] [place] [address] 11204- 9863 Oct, Atherosclerotic heart disease of [place] coronary artery without angina pectoris I25.10 ; Coronary artery disease involving [place] heart with angina pectoris, unspecified vessel or lesion type I25.119 ; Type 2 diabetes mellitus with diabetic polyneuropathy E11.42 ; Hyperlipidemia LDL goal <70 E78.5 ; Cigarette smoker F17.210 and Post-traumatic stress reaction F43.10 [facility] [id number] [place] [address] 55081- 8099 Oct, [facility] [id number] [place] [address] 41482- 3399 Oct, Difficulty breathing R06.89 ; Hospital discharge follow-up Z09 and Bilateral lower extremity edema R60.0 [facility] [id number] [place] [address] 86542- 1496 Oct, [facility] [id number] [place] [address] 58529 -2647 Oct, Dependent edema R60.9 [facility] [id number] [place] [address] 56931- 3021 Oct, [facility] [id number] [place] [address] 61491- 4938 Oct, [facility] [id number] [place] [address] 63063- 3878 Oct, Type 2 diabetes mellitus with diabetic polyneuropathy E11.42 [facility] [id number] [place] [address] 06590- 4026 Oct, [facility] [id number] [place] [address] 05436- 4730 Sep, [facility] [id number] [place] [address] 43287- 9957 August, [facility] [address] [place] [address]- 7233 Jul, [facility] [id number] [place] [address] 21934- 2501 Jul, Establishing care with new doctor, encounter for Z76.89 ; Type 2 diabetes mellitus with diabetic polyneuropathy E11.42 ; snf current use of insulin Z79.4 ; Hyperlipidemia LDL goal <70 E78.5 ; Essential hypertension I10 and Chest pain, unspecified type R07.9 [facility] [id number] [address]- 6162 Jul, [facility] [id number] [place] [address] 68032- 9209 Jul, [facility] [id number] [place] [address] 59455- 1846 Jun, [facility] [id number] [place] [address] 13428- 6151 Jun, [facility] [id number] [place] [address] 79835- 3180 Jun, [facility] [id number] [place] [address] 41988- 4436 Jun, Acute hyperglycemia R73.9 ; Type 2 diabetes mellitus with diabetic polyneuropathy E11.42 ; snf current use of insulin Z79.4 ; HTN, goal below 130/80 I10 and Hyperlipidemia LDL goal <70 E78.5 [facility] [address] [address] August, [facility] [id number] [place] [address] 53100 -7920 August, [facility] [id number] [place] [address] 36702 -8601 August, Acute vaginitis N76.0 ; Trichomonas vaginitis A59.01 and Vaginal discharge N89.8 IMMUNIZATIONS No Known Immunizations SOCIAL HISTORY Never Assessed REASON FOR VISIT med refill PLAN OF CARE VITAL SIGNS MEDICATIONS Medication Instructions Dosage Frequency Start Date End Date Duration Status Amitriptyline HCl 25 MG Orally Once a day at bedtime 1 tablet Nov, 30 days Active RESULTS No Results PROCEDURES No Known procedures INSTRUCTIONS MEDICATIONS ADMINISTERED No Known Medications MEDICAL (GENERAL) HISTORY Type Description Date Medical History Type 2 diabetes mellitus with diabetic polyneuropathy 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
[2018-03-28] MEDS ORDERED: ASPIRIN 81 MG CHEW (CHILDREN'S ASA) PO ONE (20:00)
--- NOTE | 2018-03-28 20:00 | ED Chest Pain ---
General Stated Complaint: CHEST PAIN,SOA Source: patient, spouse Exam Limitations: no limitations History of Present Illness Date Seen by Provider: Mar 28, 2018 Time Seen by Provider: 19:53 Initial Comments The patient presents to ER by private conveyance with her significant other chief complaint of continuous chest pain since her last heart catheter and stent placement [address] Benoit. She says this latest episode for the past 3 days has just been progressively getting worse and about taking her breath away and doubling her over. The pain is in her left chest which radiates through to her back and her left shoulder. She is on Plavix aspirin and taking the rest of her medicines as prescribed. Not on a blood thinner. She also has a nodule that was noted last couple weeks in her left lung 6 mm by pulmonology but they're waiting to do any biopsies and does not repeat a CAT scan in 6 months. She's not having any nausea vomiting fevers chills sweats cough. She quit smoking 2 weeks ago area. She denies using any IV drugs cocaine etc. She does not drink alcohol. He is adopted and does not know her family history. As of her last visit to the hospital she was put out on Naprosyn 500 mg twice a day for possible pericarditis versus chest wall pain. She did try nitroglycerin yesterday with no relief. Allergies and Home Medications Allergies Coded Allergies: coconut (Verified Allergy, Severe, anaphylactic reaction, 07/11/17) ketorolac (Unverified Allergy, Unknown, 08/19/15) Home Medications Albuterol Sulfate 18 Gm Hfa.aer.ad, 2 PUFF IH Q4H PRN for SHORTNESS OF BREATH Prescribed by: ERNESTO MEADOWS on 10/24/17 1406 Aspirin 81 Mg Tab.chew, 81 MG PO DAILY Prescribed by: RALPH BLANCO on 10/29/17 0923 Atorvastatin Calcium 80 Mg Tablet, 80 MG PO HS Prescribed by: KRISTAL IZAGUIRRE on 12/03/17 0758 Clopidogrel Bisulfate 75 Mg Tablet, 75 MG PO DAILY Prescribed by: RALPH BLANCO on 10/29/17 0923 Ibuprofen 800 Mg Tablet, 800 MG PO Q8H PRN for PAIN Prescribed by: NROIS KEVIN on 03/10/18 1317 Insulin Determir 1,000 Units/10 Ml Soln, 20 UNITS SQ BID Prescribed by: NORIS KEVIN on 11/17/17 1131 Insulin Lispro 100 Unit/1 Ml Insuln.pen, 15 UNIT SQ TIDAC Prescribed by: NORIS KEVIN on 11/17/17 113 Isosorbide Mononitrate 30 Mg Tab.er.24h, 30 MG PO DAILY Prescribed by: KRISTAL IZAGUIRRE on 11/17/17 0943 Lisinopril 5 Mg Tablet, 5 MG PO DAILY@0900 Prescribed by: KRISTAL IZAGUIRRE on 12/03/17 0758 Lorazepam 1 Mg Tablet, 2 MG PO Q6H PRN for ANXIETY Prescribed by: BRI THOMAS on 03/10/18 1227 Metoprolol Succinate 50 Mg Tab.er.24h, 50 MG PO BID Prescribed by: RALPH BLANCO on 10/29/17 113 Naproxen 500 Mg Tablet, 500 MG PO BID Prescribed by: NESSA MIJARES on 12/23/17 0223 Pantoprazole Sodium 40 Mg Granpkt.dr, 40 MG PO DAILY Prescribed by: KRISTAL IZAGUIRRE on 11/17/17 0943 Ranolazine 500 Mg Tab.er.12h, 500 MG PO BID Prescribed by: KRISTAL IZAGUIRRE on 12/03/17 0758 Patient Home Medication List Home Medication List Reviewed: Yes Review of Systems Review of Systems Constitutional: No chills, No diaphoresis EENTM: No Blurred Vision, No Double Vision Respiratory: Denies Cough, Denies Orthopnea Cardiovascular: Denies Chest Pain Gastrointestinal: Denies Abdomen Distended, Denies Abdominal Pain, Denies Constipated, Denies Diarrhea, Denies Nausea Genitourinary: Denies Burning, Denies Discharge Musculoskeletal: No back pain, No joint pain Skin: No pruritus, No rash Psychiatric/Neurological: Denies Headache, Denies Numbness Past Dklgkzl-Lckxpq-Vfurpy Hx Patient Social History Alcohol Use: Denies Use Recreational Drug Use: No Smoking Status: Former Smoker Type Used: Cigarettes Former Smoker, Quit: Mar 14, 2018 2nd Hand Smoke Exposure: Yes Recent Foreign Travel: No Contact w/Someone Who Travel: No Recent Hopitalizations: No Immunizations Up To Date Tetanus Booster (TDap): Unknown PED Vaccines UTD: No Date of Pneumonia Vaccine: September 09, 2016 Seasonal Allergies Seasonal Allergies: No Past Medical History Surgeries: Yes Breast, Cardiac, Section, Tubal Ligation Respiratory: No Currently Using CPAP: No Currently Using BIPAP: No Cardiac: Yes (Hx of stent to LAD.) Coronary Artery Disease, Heart Attack, Hypertension Neurological: Yes Neuropathy Reproductive Disorders: No Female Reproductive Disorders: Ovarian Cyst Sexually Transmitted Disease: No HIV/AIDS: No Genitourinary: No Gastrointestinal: No Musculoskeletal: Yes (carpal tunnel bilat hands) Chronic Back Pain Endocrine: Yes Diabetes, Insulin dep, Diabetes, Non-Insulin dep HEENT: No Loss of Vision: Denies Hearing Impairment: Denies Cancer: No Psychosocial: No Integumentary: No Blood Disorders: No Adverse Reaction/Blood Tranf: No Family Medical History Cardiovascular disease 19 FATHER, Onset:Unknown 19 MOTHER, Onset:Unknown Diabetes mellitus 19 FATHER 19 MOTHER Heart Disease, Diabetes, Other Conditions/Hx Physical Exam Vital Signs Vital Signs - First Documented 03/28/18 19:53 Temp 98.7 Pulse 113 Resp 22 B/P (MAP) 148/102 (117) Pulse Ox 96 O2 Delivery Room Air O2 Flow Rate 0 Capillary Refill : Height, Weight, BMI Height: 5'2.00" Weight: 161lbs. 7.0oz. 73.081401il; 29.5 BMI Method:Stated General Appearance: WD/WN, Moderate Distress HEENT: PERRL/EOMI, Normal ENT Inspection, Pharynx Normal, Moist Mucous Membranes Neck: Full Range of Motion, Normal Inspection Respiratory: No Chest Non Tender; Lungs Clear, Normal Breath Sounds, No Accessory Muscle Use, No Respiratory Distress Cardiovascular: Regular Rate, Rhythm, No Edema, Normal Peripheral Pulses, Tachycardia Gastrointestinal: Normal Bowel Sounds, Non Tender, Soft Neurologic/Psychiatric: Alert, Oriented x3, No Motor/Sensory Deficits Skin: Normal Color, Warm/Dry Progress/Results/Core Measures Results/Orders Lab Results Laboratory Tests Test 03/28/18 20:00 03/28/18 20:52 03/28/18 22:05 Range/Units White Blood Count 8.2 4.3-11.0 10^3/uL Red Blood Count 4.73 4.35-5.85 10^6/uL Hemoglobin 12.1 11.5-16.0 G/DL Hematocrit 36 35-52 % Mean Corpuscular Volume 76 L 80-99 FL Mean Corpuscular Hemoglobin 26 25-34 PG Mean Corpuscular Hemoglobin Concent 34 32-36 G/DL Red Cell Distribution Width 15.5 H 10.0-14.5 % Platelet Count 344 130-400 10^3/uL Mean Platelet Volume 9.3 7.4-10.4 FL Neutrophils (%) (Auto) 65 42-75 % Lymphocytes (%) (Auto) 27 12-44 % Monocytes (%) (Auto) 6 0-12 % Eosinophils (%) (Auto) 2 0-10 % Basophils (%) (Auto) 0 0-10 % Neutrophils # (Auto) 5.3 1.8-7.8 X 10^3 Lymphocytes # (Auto) 2.2 1.0-4.0 X 10^3 Monocytes # (Auto) 0.5 0.0-1.0 X 10^3 Eosinophils # (Auto) 0.2 0.0-0.3 10^3/uL Basophils # (Auto) 0.0 0.0-0.1 10^3/uL Prothrombin Time 12.0 L 12.2-14.7 SEC INR Comment 0.9 0.8-1.4 Activated Partial Thromboplast Time 31 24-35 SEC Sodium Level 133 L 135-145 MMOL/L Potassium Level 3.8 3.6-5.0 MMOL/L Chloride Level 100 98-107 MMOL/L Carbon Dioxide Level 18 L 21-32 MMOL/L Anion Gap 15 H 5-14 MMOL/L Blood Urea Nitrogen 6 L 7-18 MG/DL Creatinine 0.85 0.60-1.30 MG/DL Estimat Glomerular Filtration Rate > 60 BUN/Creatinine Ratio 7 Glucose Level 511 *H 70-105 MG/DL Calcium Level 8.7 8.5-10.1 MG/DL Corrected Calcium 8.8 8.5-10.1 MG/DL Magnesium Level 2.1 1.8-2.4 MG/DL Total Bilirubin 0.5 0.1-1.0 MG/DL Aspartate Amino Transf (AST/SGOT) 16 5-34 U/L Alanine Aminotransferase (ALT/SGPT) 22 0-55 U/L Alkaline Phosphatase 182 H 40-136 U/L Myoglobin 13.7 10.0-92.0 NG/ML Troponin I < 0.30 <0.30 NG/ML B-Type Natriuretic Peptide < 10.0 <100.0 PG/ML Total Protein 7.9 6.4-8.2 GM/DL Albumin 3.9 3.2-4.5 GM/DL Urine Color YELLOW Urine Clarity CLEAR Urine pH 5 5-9 Urine Specific [place] 1.010 L 1.016-1.022 Urine Protein 2+ H NEGATIVE Urine Glucose (UA) 4+ H NEGATIVE Urine Ketones NEGATIVE NEGATIVE Urine Nitrite POSITIVE H NEGATIVE Urine Bilirubin NEGATIVE NEGATIVE Urine Urobilinogen NORMAL NORMAL MG/DL Urine Leukocyte Esterase 2+ H NEGATIVE Urine RBC (Auto) 3+ H NEGATIVE Urine RBC 5-10 H /HPF Urine WBC 10-25 H /HPF Urine Crystals NONE /LPF Urine Bacteria LARGE H /HPF Urine Casts NONE /LPF Urine Mucus NEGATIVE /LPF Urine Culture Indicated YES Glucometer 377 H 70-110 MG/DL My Orders Orders - ALBERTINA AGUDELO Cbc With Automated Diff (03/28/18 19:58) Magnesium (03/28/18 19:58) Chest 1 View, Ap/Pa Only (03/28/18 19:58) Ekg Tracing (03/28/18 19:58) Cardiac Profile 1 (03/28/18 19:58) Comprehensive Metabolic Panel (03/28/18 19:58) Myoglobin Serum (03/28/18 19:58) Protime With Inr (03/28/18:58) Partial Thromboplastin Time (03/28/18 19:58) O2 (03/28/18 19:58) Monitor-Rhythm Ecg Trace Only (03/28/18 19:58) Lipid Panel (03/29/18 06:00) Aspirin Chewable Tablet (Baby Aspirin Ch (03/28/18 20:00) Nitroglycerin 0.4 Mg Btl 25's (Nitrostat (03/28/18 20:00) Saline Lock/Iv-Start (03/28/18 19:58) BNP (03/28/18 19:58) Morphine Injection (Morphine Injection (03/28/18 20:30) Insulin (Regular) Human (Humulin R (Per (03/28/18 20:45) Ns W/Kcl 20 Meq/L (Ns Iv W/Kcl 20 Meq/L) (03/28/18 20:45) Morphine Injection (Morphine Injection (03/28/18 21:30) Ondansetron Injection (Zofran Injectio (03/28/18 21:30) Ua Culture If Indicated (03/28/18 22:04) Urine Culture (03/28/18 20:52) Medications Given in ED Current Medications Medications Dose Ordered Sig/Tomasz Route Start Time Stop Time Status Last Admin Dose Admin Aspirin 324 mg ONCE ONCE PO 03/28/18 20:00 03/28/18 20:01 DC 03/28/18 20:10 324 MG Insulin Human Regular 15 unit ONCE ONCE SC 03/28/18 20:45 03/28/18 20:46 DC 03/28/18 21:08 15 UNIT Morphine Sulfate 6 mg ONCE ONCE IVP 03/28/18 20:30 03/28/18 20:31 DC 03/28/18 20:29 6 MG Morphine Sulfate 6 mg ONCE ONCE IVP 03/28/18 21:30 03/28/18 21:31 DC 03/28/18 21:34 6 MG Nitroglycerin 0.4 mg UD PRN SL 03/28/18 20:00 03/28/18 20:16 0.4 MG Ondansetron HCl 4 mg ONCE ONCE IVP 03/28/18 21:30 03/28/18 21:31 DC 03/28/18 21:32 4 MG Vital Signs/I&O 03/28/18 03/28/18 19:53 19:53 Temp 98.7 Pulse 113 Resp 22 B/P (MAP) 148/102 (117) Pulse Ox 96 O2 Delivery Room Air Room Air O2 Flow Rate 0 Progress Progress Note #1: Time: 20:14 Progress Note Patient's tachycardic but she is routinely tachycardic on all of her visits. With rest she is in the 100-110 range. Chest pain is reproducible by pushing on her chest that does radiate through to her back. She's had a recent exhaustive workup and is supposed to be on NSAIDs. She states she is taking all of her medications appropriately. She did quit smoking. We'll start with nitroglycerin 324 mg of aspirin and chest x-ray EKG. March 08 cardiac note: Recurrent chest pain with breathing. Suspicion for pericarditis and NSAIDs are recommended. Patient is on dual anti-Platelet therapy. On antihypertensives , anti-hyperlipidemia and type II diabetic. 03/08/18: PCI with 2 drug-eluting stents placed in the mid LAD. During her hospital stay her pain did not respond very well to nitroglycerin or NSAIDs. Morphine was given. Because of her continued 10 out of 10 pain and despite negative d-dimer they did elect to do a CT angiogram anyways and found stable pulmonary nodule 7 mm in the left lower lung but no other acute pathology on 03/09/18. Other differential diagnoses for chest pain shortness of breath could be pneumothorax, pleurisy, chest wall pain, pericarditis, secondary gains. Pulmonary embolism could be clinically ruled out since her oxygen saturation is 9800% on room air and her pain is reproducible to palpation the chest. She had a CT angiogram couple weeks ago thinking about this and there is no evidence of that time. She's not been laid up or had any specific surgery other than a heart catheter 2 weeks ago. ED ACS 5 points. Low risk by the EDACS Score. If the patient also has: (1) EKG without new ischemic changes and (2) negative initial and 2-hour troponins, then this patient is safe for discharge to early outpatient follow-up investigation (or proceed to earlier inpatient testing). If EKG with ischemic changes or positive troponin, they are not low risk and require normal risk stratification. Progress Note #2: Time: 22:48 Progress Note Repeat blood sugar after 15 units of regular is 377. We'll go ahead and increase her Humalog to 25 3 times a day and her Levemir to 25 twice a day. We' ll have her follow-up in the next week or so with her primary care. She has a UTI so we'll give her some Rocephin now and put her out on Keflex. Far as her chest pain goes and seems to be chest wall related so we are going to put her on Naprosyn 500 mg twice a day. We have given her strict return precautions. Would like to follow-up with Dr. Patel, cardiology tomorrow if possible in the clinic. Initial ECG Impression Date: Mar 28, 2018 Initial ECG Impression Time: 20:00 Initial ECG Rate: 118 Initial ECG Rhythm: S.Tach Initial ECG Intervals: QT (471) Initial ECG Impression: Nonspecific Changes Initial ECG Comparisson: Unchanged Comment No ST elevation or depression on this sinus tachycardia. Subtle Q waves noted. Diagnostic Imaging Diagonstic Imaging: Xray Plain Films/CT/US/NM/MRI: chest (1v) Comments [facility] [place], [place] NAME: BLAS QUEVEDO [facility] REC#: [id number] PT STATUS: REG ER : 1980 PHYSICIAN: ALBERTINA AGUDELO MD ADMIT DATE: 03/28/18/ER Draft Date of Exam:03/28/18 CHEST 1 VIEW, AP/PA ONLY EXAMINATION: Single frontal view of the chest. INDICATION: Chest pain. COMPARISON: Multiple priors, most recent performed on 03/07/2018. FINDINGS: Lungs are clear and the pulmonary vasculature is normal. No pneumothorax or significant pleural effusion. The cardiomediastinal silhouette is unchanged. No acute osseous abnormality. IMPRESSION: No acute chest disease. No significant change from priors. Dictated on workstation # [id number] Dict: 03/28/182114 Trans: 03/28/182138 [facility] [id number] Interpreted by: NEW CHRISTINA DO Electronically signed by: Reviewed: Reviewed by Me Consults : Consulting Physician: Lynn ROQUE MD Consults Notes Discussed case lab EKG imaging with Dr. Roque who did her PCI last month and he agrees it does not sound cardiac in origin. He does not feel she needs to have a serial troponin rule out and the hospital. We discussed NSAIDs. Departure Impression Primary Impression: Chest wall pain Additional Impressions: UTI (urinary tract infection) Qualified Codes: N30.00 - Acute cystitis without hematuria Hyperglycemia due to type 2 diabetes mellitus Qualified Codes: E11.65 - Type 2 diabetes mellitus with hyperglycemia; Z79.4 - USP (current) use of insulin Disposition: 01 HOME, SELF-CARE Condition: Improved Departure-Patient Inst. Decision time for Depature: 22:51 Referrals: BRI THOMAS MD (PCP/Family) Primary Care Physician Patient Instructions: Chest Pain That Is Not Caused by the Heart (DC) Add. Discharge Instructions: Start taking the Naprosyn one 500 mg capsule twice a day for the next 2 weeks. Discontinue it if you begin to have severe worsening chest pain. If her chest pain does not improve or nitroglycerin does not improve it then you may return to the ER. Follow-up with Dr. Benoit, cardiology tomorrow in the clinic if possible or next week. Follow-up with primary care in the next 1-2 weeks to discuss your elevated blood sugars. Tomorrow start the Keflex one capsule twice a day for 6 days. If you have breakthrough pain you can use heat, muscle rubs and tramadol 1 tablet every 6 hours. Increase her insulin until you follow up with primary care: Humalog 25 units 3 times a day with meals. Levemir 25 units twice a day. Scripts Cephalexin (Keflex) 500 Mg Capsule 500 MG PO BID for 14 Days, #28 CAP 0 Refills Prov: ALBERTINA AGUDELO 03/28/18 Tramadol HCl (Tramadol HCl) 50 Mg Tablet 50 MG PO Q6H PRN for PAIN, #20 TAB 0 Refills Prov: ALBERTINA AGUDELO 03/28/18 Copy Copies To 1: HANG FELIPE DO; ALBER BENOIT MD [facility] ALBERTINA AGUDELO Mar 28, 2018 20:00
[2018-03-28] MEDS: NITROGLYCERIN 0.4 MG SL TABS BTL 25'S SL PRN ×2 (20:10→20:16)
[2018-03-28 20:13] LABS: BASOPHILS % (AUTO) 0 % (0-10); EOSINOPHILS # (AUTO) 0.2 10^3/uL (0.0-0.3); EOSINOPHILS % (AUTO) 2 % (0-10); HEMATOCRIT 36 % (35-52); HEMOGLOBIN 12.1 G/DL (11.5-16.0); LYMPHOCYTES # (AUTO) 2.2 X 10^3 (1.0-4.0); LYMPHOCYTES % (AUTO) 27 % (12-44); MEAN CORPUSCULAR HEMOGLOBIN 26 PG (25-34); MEAN CORPUSCULAR HGB CONC 34 G/DL (32-36); MEAN CORPUSCULAR VOLUME 76 FL (80-99); MEAN PLATELET VOLUME 9.3 FL (7.4-10.4); MONOCYTES # (AUTO) 0.5 X 10^3 (0.0-1.0); MONOCYTES % (AUTO) 6 % (0-12); NEUTROPHILS # (AUTO) 5.3 X 10^3 (1.8-7.8); NEUTROPHILS % (AUTO) 65 % (42-75); PLATELET COUNT 344 10^3/uL (130-400); RED BLOOD COUNT 4.73 10^6/uL (4.35-5.85); RED CELL DISTRIBUTION WIDTH 15.5 % (10.0-14.5); WHITE BLOOD COUNT 8.2 10^3/uL (4.3-11.0)
[2018-03-28 20:26] LABS: INR 0.9 (0.8-1.4)
[2018-03-28] MEDS ORDERED: morphine INJ 10 MG/ML 1ML (SYR OR VIAL) IVP ONE ×2 (20:30→21:30)
[2018-03-28 20:32] LABS: ALANINE AMINOTRANSFERASE 22 U/L (0-55); ALBUMIN 3.9 GM/DL (3.2-4.5); ALKALINE PHOSPHATASE 182 U/L (40-136); BILIRUBIN,TOTAL 0.5 MG/DL (0.1-1.0); BUN/CREATININE RATIO 7; CALCIUM 8.7 MG/DL (8.5-10.1); CARBON DIOXIDE 18 MMOL/L (21-32); CHLORIDE 100 MMOL/L (98-107); CREATININE SERUM 0.85 MG/DL (0.60-1.30); GFR ESTIMATED > 60; MAGNESIUM 2.1 MG/DL (1.8-2.4); POTASSIUM 3.8 MMOL/L (3.6-5.0); SODIUM 133 MMOL/L (135-145); TOTAL PROTEIN 7.9 GM/DL (6.4-8.2)
[2018-03-28 20:33] LABS: GLUCOSE 511 MG/DL (70-105)
[2018-03-28 20:38] LABS: MYOGLOBIN SERUM 13.7 NG/ML (10.0-92.0)
[2018-03-28] MEDS ORDERED: inSUlin (REGULAR) HUMAN 1 UNIT/0.01 ML (CHARGE PER UNIT) SC ONE (20:45)
[2018-03-28] MEDS ORDERED: ONDANSETRON 4 MG/2 ML (SDV) Z0FRAN IVP ONE (21:30)
[2018-03-28] MEDS: NS W/KCL 20 MEQ/L 1,000 ML IV SCH ×2 (21:35→23:52)
--- NOTE | 2018-03-28 21:39 | Diagnostic Imaging Report ---
EXAMINATION: Single frontal view of the chest. INDICATION: Chest pain. COMPARISON: Multiple priors, most recent performed on 03/07/2018. FINDINGS: Lungs are clear and the pulmonary vasculature is normal. No pneumothorax or significant pleural effusion. The cardiomediastinal silhouette is unchanged. No acute osseous abnormality. IMPRESSION: No acute chest disease. No significant change from priors. Dictated by: Dictated on workstation # [id number]
[2018-03-28 22:10] LABS: BILIRUBIN,URINE NEGATIVE (NEGATIVE); CLARITY,URINE CLEAR; COLOR,URINE YELLOW; GLUCOSE, URINE (UA) 4+ (NEGATIVE); KETONES,URINE NEGATIVE (NEGATIVE); LEUKOCYTE ESTERASE ,URINE 2+ (NEGATIVE); NITRITE,URINE POSITIVE (NEGATIVE); PH,URINE 5 (5-9); PROTEIN,URINE 2+ (NEGATIVE); UROBILINOGEN,URINE NORMAL (NORMAL)
[2018-03-28 22:23] LABS: BACTERIA,URINE LARGE /HPF
[2018-03-28] MEDS ORDERED: RX-TRAMADOL 50 MG (ULTRAM) TAB PPK#4 PO STA (22:47)
[2018-03-28] MEDS ORDERED: CEPH-507 PO (22:53)
[2018-03-28] MEDS ORDERED: TRAM50TA2 PO (22:53)
[2018-03-28] MEDS ORDERED: cefTRIAXone FOR IV USE 1,000 MG in NS (IVPB) 50 ML IV ONE (23:00)
[2018-03-28 23:53] VITALS: BP 147/106
== END 2018-03-28 23:53 | disposition home or self-care (01) ==
LOC: EDUNIT# 19:50 → ER 19:51
DX: R07.89 Other chest pain (principal); N39.0 Urinary tract infection, site not specified; I25.10 Atherosclerotic heart disease of native coronary artery without angina pectoris; I25.2 Old myocardial infarction; I10 Essential (primary) hypertension; E11.65 Type 2 diabetes mellitus with hyperglycemia; E11.40 Type 2 diabetes mellitus with diabetic neuropathy, unspecified; Z82.49 Family history of ischemic heart disease and other diseases of the circulatory system; Z87.448 Personal history of other diseases of urinary system; Z79.51 Long term (current) use of inhaled steroids; Z79.82 Long term (current) use of aspirin; Z79.4 Long term (current) use of insulin; Z87.891 Personal history of nicotine dependence; Z79.02 Long term (current) use of antithrombotics/antiplatelets; Z98.51 Tubal ligation status; Z98.890 Other specified postprocedural states; Z95.5 Presence of coronary angioplasty implant and graft
CPT/HCPCS: 36415; 71045; 80053; 81000; 82962; 83735; 83874; 83880; 84484; 85025; 85610; 85730; 87077; 87088; 87186; 93005; 93041; 96365; 96372; 96375; 96376

== ENCOUNTER 2018-04-12 03:51 | Inpatient (IN) | payer OTHER ==
[2018-04-12] VITALS (30 sets, daily range): BP systolic 105–159; BP diastolic 64–130
[~2018-04-12] VITALS: Ht 157.5 cm; Wt 76.3 kg
[~2018-04-12 03:51] MED LIST changes: +TRAM50TA2 PO
--- NOTE | 2018-04-12 03:51 | NUR ---
PT BROUGHT IN BY [facility] AFTER INGESTING APPROX. 90-300MG GABAPENTIN, 28-1MG ATIVAN, 30-25MG AMITRIPTYLLINE WITH UNKNOWN AMOUNT OF LEVEMIR/HUMALOG INJECTED. INITIAL EMS GLUCOSE 393MG/DL, GLUCOSE AT 0400 - 369MG/DL, GLUCOSE AT 0430-280MG/DL. PT PLACED ON ROOM MONITOR, INFORMED OF NEED TO INTUBATE. ADDITIONAL IV ACCESS OBTAINED. 0406- PT INTUBATED WITH 7.5 OETT 23CM AT GUMS X1 ATTEMPT. PT WITH LOOSE TEETH PRIOR TO INTUBATION ET. 1 TOOTH DISLODGED DURING INTUBATION. 0422- BILATERAL SOFT WRIST RESTRAINTS APPLIED.
[2018-04-12] MEDS ORDERED: D5 NS 1000 ML IV SOLUTION 1,000 ML IV ONE (03:56)
[2018-04-12] MEDS ORDERED: SUCCINYLCHOLINE INJ 100 MG/5 ML SYR INJ ONE (04:00)
[2018-04-12] MEDS ORDERED: ETOMIDATE IV SOLN 20 MG/10 ML VIAL IV ONE (04:00)
[2018-04-12] MEDS ORDERED: NS IV 1000 ML 1,000 ML ONE (04:00)
[2018-04-12] MEDS ORDERED: PROPOFOL DRIP (ICU) 100 ML IV ONE ×2 (04:07→05:31)
[2018-04-12 04:10] LABS: BASOPHILS % (AUTO) 0 % (0-10); EOSINOPHILS # (AUTO) 0.2 10^3/uL (0.0-0.3); EOSINOPHILS % (AUTO) 3 % (0-10); HEMATOCRIT 36 % (35-52); HEMOGLOBIN 12.6 G/DL (11.5-16.0); LYMPHOCYTES # (AUTO) 2.2 X 10^3 (1.0-4.0); LYMPHOCYTES % (AUTO) 32 % (12-44); MEAN CORPUSCULAR HEMOGLOBIN 27 PG (25-34); MEAN CORPUSCULAR HGB CONC 35 G/DL (32-36); MEAN CORPUSCULAR VOLUME 76 FL (80-99); MEAN PLATELET VOLUME 8.9 FL (7.4-10.4); MONOCYTES # (AUTO) 0.2 X 10^3 (0.0-1.0); MONOCYTES % (AUTO) 3 % (0-12); NEUTROPHILS # (AUTO) 4.2 X 10^3 (1.8-7.8); NEUTROPHILS % (AUTO) 62 % (42-75); PLATELET COUNT 406 10^3/uL (130-400); RED BLOOD COUNT 4.73 10^6/uL (4.35-5.85); RED CELL DISTRIBUTION WIDTH 14.9 % (10.0-14.5); WHITE BLOOD COUNT 6.8 10^3/uL (4.3-11.0)
--- NOTE | 2018-04-12 04:10 | NUR ---
Cameron with poison control was called at this time. Patient information was provided and information about overdose. Pt took Gabapentin 300mg possibly 90, lorazepam 1mg possibly 28, amitriptylline 25 mg possibly 30, levemir unknown amount and humalog unknown amout. Cameron stated that gabapentin and lorazepam would cause respiratory depression and amitriptylline would cause QRS enlongation. With enlogation he suggested EKG every 2 hours x 3 and then a sodium bicarb drip. He stated automatic 24 hour observation. Cameron was informed that patient was getting intubated at this time. He stated he would fax information to [phone] about sodium bicarb drip.
[2018-04-12] MEDS ORDERED: NS IV 1000 ML 1,000 ML IV STA (04:27)
[2018-04-12] MEDS ORDERED: PROPOFOL INJECTION 50 ML IV SCH (04:30)
[2018-04-12 04:37] LABS: ACETAMINOPHEN < 10 UG/ML (10-30); ALBUMIN 4.1 GM/DL (3.2-4.5); ALKALINE PHOSPHATASE 171 U/L (40-136); BILIRUBIN,TOTAL < 0.5 MG/DL (0.1-1.0); BUN/CREATININE RATIO 8; CALCIUM 9.4 MG/DL (8.5-10.1); CARBON DIOXIDE 12 MMOL/L (21-32); CHLORIDE 99 MMOL/L (98-107); GFR ESTIMATED > 60; GLUCOSE 371 MG/DL (70-105); POTASSIUM 3.3 MMOL/L (3.6-5.0); SODIUM 132 MMOL/L (135-145); TOTAL PROTEIN 10.5 GM/DL (6.4-8.2)
[2018-04-12 04:39] LABS: BILIRUBIN,URINE NEGATIVE (NEGATIVE); CLARITY,URINE SLIGHTLY CLOUDY; COLOR,URINE YELLOW; GLUCOSE, URINE (UA) 4+ (NEGATIVE); KETONES,URINE NEGATIVE (NEGATIVE); LEUKOCYTE ESTERASE ,URINE NEGATIVE (NEGATIVE); NITRITE,URINE NEGATIVE (NEGATIVE); PH,URINE 6 (5-9); PROTEIN,URINE 3+ (NEGATIVE); UROBILINOGEN,URINE NORMAL (NORMAL)
--- NOTE | 2018-04-12 04:46 | ED Psychosocial ---
General Chief Complaint: Overdose Stated Complaint: OVERDOSE Nursing Triage Note: OVERDOSE MULTIPLE MEDICATIONS Source: patient, EMS Exam Limitations: clinical condition, intoxication History of Present Illness Date Seen by Provider: Apr 12, 2018 Time Seen by Provider: 04:00 Initial Comments Patient arrives to the ER by EMS where family found her trying to down a bottle of Plavix but knocked out of her hands first. They state that she told him she took all of the Humalog and Levemir she had as well as most of her other medicines: Gabapentin 300mg possibly 90, lorazepam 1mg possibly 28, amitriptyline 25 mg possibly 30, Levemir unknown amount and Humalog unknown amount. Initial blood sugar per EMS was 369. She was drowsy but talking and oriented 3 for them. When the patient arrived she was able to say her name and knows that she was the hospital not much else. Patient does not give much other meaningful history. She denies pain anywhere. Allergies and Home Medications Allergies Coded Allergies: coconut (Verified Allergy, Severe, anaphylactic reaction, 07/11/17) ketorolac (Unverified Allergy, Unknown, 08/19/15) Home Medications Albuterol Sulfate 18 Gm Hfa.aer.ad, 2 PUFF IH Q4H PRN for SHORTNESS OF BREATH Prescribed by: ERNESTO MEADOWS on 10/24/17 1406 Aspirin 81 Mg Tab.chew, 81 MG PO DAILY Prescribed by: RALPH BLANCO on 10/29/17 0923 Atorvastatin Calcium 80 Mg Tablet, 80 MG PO HS Prescribed by: KRISTAL IZAGUIRRE on 12/03/17 0758 Cephalexin 500 Mg Capsule, 500 MG PO BID Prescribed by: ALBERTINA AGUDELO on 03/28/18 2253 Clopidogrel Bisulfate 75 Mg Tablet, 75 MG PO DAILY Prescribed by: RALPH BLANCO on 10/29/17 0923 Ibuprofen 800 Mg Tablet, 800 MG PO Q8H PRN for PAIN Prescribed by: NORIS KEVIN on 03/10/18 1317 Insulin Determir 1,000 Units/10 Ml Soln, 20 UNITS SQ BID Prescribed by: NORIS KEVIN on 11/17/17 1131 Insulin Lispro 100 Unit/1 Ml Insuln.pen, 15 UNIT SQ TIDAC Prescribed by: NORIS KEVIN on 11/17/17 1131 Isosorbide Mononitrate 30 Mg Tab.er.24h, 30 MG PO DAILY Prescribed by: KRISTAL IZAGURIRE on 11/17/17 0943 Lisinopril 5 Mg Tablet, 5 MG PO DAILY@0900 Prescribed by: KRISTAL IZAGUIRRE on 12/03/17 0758 Lorazepam 1 Mg Tablet, 2 MG PO Q6H PRN for ANXIETY Prescribed by: BRI THOMAS on 03/10/18 1227 Metoprolol Succinate 50 Mg Tab.er.24h, 50 MG PO BID Prescribed by: RALPH BLANCO on 10/29/17 1131 Naproxen 500 Mg Tablet, 500 MG PO BID Prescribed by: NESSA MIJARES on 12/23/17 0223 Pantoprazole Sodium 40 Mg Granpkt.dr, 40 MG PO DAILY Prescribed by: KRISTAL IZAGUIRRE on 11/17/17 0943 Ranolazine 500 Mg Tab.er.12h, 500 MG PO BID Prescribed by: KRISTAL IZAGUIRRE on 12/03/17 0758 Tramadol HCl 50 Mg Tablet, 50 MG PO Q6H PRN for PAIN Prescribed by: ALBERTINA AGUDELO on 03/28/18 8573 Patient Home Medication List Home Medication List Reviewed: Yes Review of Systems Constitutional: see HPI (review of systems is limited secondary to intoxication ); No fever Cardiovascular: No chest pain Gastrointestinal: No abdominal pain, No nausea : No Past Ezxglxl-Nwxtbs-Vkbpza Hx Patient Social History Alcohol Use: Denies Use Recreational Drug Use: No Drug of Choice: UNK Smoking Status: Unknown if Ever Smoked Type Used: Cigarettes Former Smoker, Quit: Mar 14, 2018 2nd Hand Smoke Exposure: Yes Recent Foreign Travel: No Contact w/Someone Who Travel: No Recent Infectious Disease Expo: No Recent Hopitalizations: No Physical Abuse: No Sexual Abuse: No Mistreated: No Fear: No Immunizations Up To Date Tetanus Booster (TDap): Unknown PED Vaccines UTD: No Date of Pneumonia Vaccine: September 09, 2016 Seasonal Allergies Seasonal Allergies: No Past Medical History Surgeries: Yes Breast, Cardiac, Section, Coronary Stent, Tubal Ligation Respiratory: No Currently Using CPAP: No Currently Using BIPAP: No Cardiac: Yes (Hx of stent to LAD.) Coronary Artery Disease, Heart Attack, Hypertension Neurological: Yes Neuropathy : No (UNK) Reproductive Disorders: No Female Reproductive Disorders: Ovarian Cyst Sexually Transmitted Disease: No HIV/AIDS: No Genitourinary: No Gastrointestinal: No Musculoskeletal: Yes (carpal tunnel bilat hands) Chronic Back Pain Endocrine: Yes Diabetes, Insulin dep, Diabetes, Non-Insulin dep HEENT: No Loss of Vision: Denies Hearing Impairment: Denies Cancer: No Psychosocial: No Nursing Suicide Risk Notes: PT WITH INTENTIONAL OVERDOSE MULTIPLE MEDICATIONS. Integumentary: No Blood Disorders: No Adverse Reaction/Blood Tranf: No Family Medical History Cardiovascular disease 19 FATHER, Onset:Unknown 19 MOTHER, Onset:Unknown Diabetes mellitus 19 FATHER 19 MOTHER Heart Disease, Diabetes, Other Conditions/Hx Physical Exam Vital Signs - First Documented 04/12/18 04/12/18 03:51 04:41 Temp 97.3 Pulse 134 Resp 18 B/P (MAP) 130/101 (111) Pulse Ox 99 O2 Delivery Room Air FiO2 30 Capillary Refill : Less Than 3 Seconds Height, Weight, BMI Height: 5'2.00" Weight: 152lbs. 7.0oz. [id number]; 29.5 BMI Method:Stated General Appearance: severe distress, other (disheveled) HEENT: PERRL/EOMI, TMs normal, other (oropharynx was severe dental caries and to her front incisors were very loose freely moving about 90 anteriorly just as she talked.) Neck: non-tender, full range of motion, supple, normal inspection Respiratory: chest non-tender, lungs clear, normal breath sounds, no respiratory distress, no accessory muscle use Cardiovascular: normal peripheral pulses, no edema, no murmur, tachycardia Peripheral Pulses: 2+ Radial Pulses (R), 2+ Radial Pulses (L) Gastrointestinal: normal bowel sounds, non tender, soft Neurologic/Psychiatric: alert, other (oriented to person and place only, slurring speech and barely holding her eyes open when spoken to. GCS 13) Procedures/Interventions Reason for Intubation: not protecting airway secondary to TCA, lorazepam overdose Date of ETT Placement: Apr 12, 2018 Time of ETT Placement: 04:10 Intubation Method: orotracheal Tube Size: 7.5 Medications: Etomidate, Propofol, Succinylcholine Positive End Tide CO2: Yes Breath Sounds after Intubation: bilateral-equal Intubation Complications: other (1-2 teeth, incisors upper displaced) Post Intubation Xray: Yes ET tube approximately 2 cm above antonio. OG over stomach shadow Was explained the patient we would have to give her drugs to put her to sleep, relax her and intubate her to protect her airway and she said, "Okay, whatever. " We then gave her the etomidate followed by succinylcholine. When the patient was ascertained to be paralyzed we were using an Ambu bag and had her 100% oxygen saturation. We then took a look in her mouth and saw that her front incisor was extremely loose and would freely move 90 anteriorly. We carefully used a 3 Aileen and 7.5 ET tube with dilated and tried not to harm her teeth but unfortunately the incisor was displaced and subsequently was recovered from the back of her mouth. However we were able to get a decent look at the bottom half of her vocal cords and visualized the ET tube being passed over the vocal cords resting at 23 at the gumline. The patient's breath through the Ambu bag fogged the ET tube and changed the colorimetric capnography paper. We had good breath sounds over both chest mccarthy and the chest x-ray was obtained showing good position. Patient's oxygen sats did not go below 95% minimal oropharyngeal suctioning was required. Patient was then converted to propofol for sedation and tolerated the procedure well. Progress/Results/Core Measures Results/Orders Lab Results Laboratory Tests Test 04/12/18 04:00 04/12/18 04:25 04/12/18 04:29 Range/Units White Blood Count 6.8 4.3-11.0 10^3/uL Red Blood Count 4.73 4.35-5.85 10^6/uL Hemoglobin 12.6 11.5-16.0 G/DL Hematocrit 36 35-52 % Mean Corpuscular Volume 76 L 80-99 FL Mean Corpuscular Hemoglobin 27 25-34 PG Mean Corpuscular Hemoglobin Concent 35 32-36 G/DL Red Cell Distribution Width 14.9 H 10.0-14.5 % Platelet Count 406 H 130-400 10^3/uL Mean Platelet Volume 8.9 7.4-10.4 FL Neutrophils (%) (Auto) 62 42-75 % Lymphocytes (%) (Auto) 32 12-44 % Monocytes (%) (Auto) 3 0-12 % Eosinophils (%) (Auto) 3 0-10 % Basophils (%) (Auto) 0 0-10 % Neutrophils # (Auto) 4.2 1.8-7.8 X 10^3 Lymphocytes # (Auto) 2.2 1.0-4.0 X 10^3 Monocytes # (Auto) 0.2 0.0-1.0 X 10^3 Eosinophils # (Auto) 0.2 0.0-0.3 10^3/uL Basophils # (Auto) 0.0 0.0-0.1 10^3/uL Sodium Level 132 L 135-145 MMOL/L Potassium Level 3.3 L 3.6-5.0 MMOL/L Chloride Level 99 98-107 MMOL/L Carbon Dioxide Level 12 L 21-32 MMOL/L Anion Gap 21 H 5-14 MMOL/L Blood Urea Nitrogen 6 L 7-18 MG/DL Creatinine 0.80 0.60-1.30 MG/DL Estimat Glomerular Filtration Rate > 60 BUN/Creatinine Ratio 8 Glucose Level 371 H 70-105 MG/DL Glucometer 369 H 280 H 70-110 MG/DL Calcium Level 9.4 8.5-10.1 MG/DL Corrected Calcium 9.3 8.5-10.1 MG/DL Total Bilirubin < 0.5 0.1-1.0 MG/DL Aspartate Amino Transf (AST/SGOT) 16 5-34 U/L Alanine Aminotransferase (ALT/SGPT) 16 0-55 U/L Alkaline Phosphatase 171 H 40-136 U/L Total Creatine Kinase 31 29-168 U/L Troponin I < 0.30 <0.30 NG/ML Total Protein 10.5 H 6.4-8.2 GM/DL Albumin 4.1 3.2-4.5 GM/DL Salicylates Level < 5.0 L 5.0-20.0 MG/DL Acetaminophen Level < 10 L 10-30 UG/ML Serum Alcohol < 10 <10 MG/DL Urine Color YELLOW Urine Clarity SLIGHTLY CLOUDY Urine pH 6 5-9 Urine Specific [place] 1.015 L 1.016-1.022 Urine Protein 3+ H NEGATIVE Urine Glucose (UA) 4+ H NEGATIVE Urine Ketones NEGATIVE NEGATIVE Urine Nitrite NEGATIVE NEGATIVE Urine Bilirubin NEGATIVE NEGATIVE Urine Urobilinogen NORMAL NORMAL MG/DL Urine Leukocyte Esterase NEGATIVE NEGATIVE Urine RBC (Auto) 1+ H NEGATIVE Urine RBC 2-5 H /HPF Urine WBC NONE /HPF Urine Squamous Epithelial Cells 0-2 /HPF Urine Crystals NONE /LPF Urine Bacteria NEGATIVE /HPF Urine Casts NONE /LPF Urine Mucus SMALL H /LPF Urine Culture Indicated NO Urine Test NEGATIVE NEGATIVE Urine Opiates Screen NEGATIVE NEGATIVE Urine Oxycodone Screen NEGATIVE NEGATIVE Urine Methadone Screen NEGATIVE NEGATIVE Urine Propoxyphene Screen NEGATIVE NEGATIVE Urine Barbiturates Screen NEGATIVE NEGATIVE Ur Tricyclic Antidepressants Screen POSITIVE H NEGATIVE Urine Phencyclidine Screen NEGATIVE NEGATIVE Urine Amphetamines Screen NEGATIVE NEGATIVE Urine Methamphetamines Screen NEGATIVE NEGATIVE Urine Benzodiazepines Screen POSITIVE H NEGATIVE Urine Cocaine Screen NEGATIVE NEGATIVE Urine Cannabinoids Screen NEGATIVE NEGATIVE My Orders Orders - JAMMIE,ALBERTINA Carmen Ua Culture If Indicated (04/12/18 03:56) Cbc With Automated Diff (04/12/18 03:56) Comprehensive Metabolic Panel (04/12/18 03:56) Alcohol (04/12/18 03:56) Drug Screen Stat (Urine) (04/12/18 03:56) Acetaminophen (04/12/18 03:56) Salicylate (04/12/18 03:56) Ekg Tracing (04/12/18 03:56) Hcg,Qualitative Urine (04/12/18 03:56) Saline Lock/Iv-Start (04/12/18 03:56) Monitor-Rhythm Ecg Trace Only (04/12/18 03:56) Bh Status Checks/Observation Q15M (04/12/18 03:56) Saline Lock/Iv-Start (04/12/18 03:56) D5 Ns 1000 Ml Iv Solution (Dextrose 5%/0 (04/12/18 03:56) Accucheck Stat ONCE (04/12/18 03:56) Succinylcholine Injection (Succinylcholi (04/12/18 04:00) Etomidate Injection (Amidate Injection) (04/12/18 04:00) Ns Iv 1000 Ml (Sodium Chloride 0.9%) (04/12/18 04:00) Propofol Drip (Icu) (Diprivan Drip (Icu) (04/12/18 04:07) Chest 1 View, Ap/Pa Only (04/12/18 04:13) Accucheck Stat ONCE (04/12/18 04:13) Propofol Injection (Diprivan Injection) (04/12/18 04:30) Og Tube Insertion (04/12/18 04:27) Catheter(Urinary) Insert & Ass 03,15 (04/12/18 04:27) Creatine Kinase (04/12/18 04:27) Troponin I (04/12/18 04:27) Ns Iv 1000 Ml (Sodium Chloride 0.9%) (04/12/18 04:27) Medications Given in ED Current Medications Medications Dose Ordered Sig/Tomasz Route Start Time Stop Time Status Last Admin Dose Admin Dextrose/Sodium Chloride 1,000 ml @ 0 mls/hr Q0M ONCE IV 04/12/18 03:56 04/12/18 04:00 DC 04/12/18 04:54 100 MLS/HR Etomidate 30 mg ONCE ONCE IV 04/12/18 04:00 04/12/18 04:01 DC 04/12/18 04:03 30 MG Propofol 100 ml @ ud STK-MED ONCE IV 04/12/18 04:07 04/12/18 04:11 DC 04/12/18 04:10 53 MLS/HR Sodium Chloride 1,000 ml @ ud STK-MED ONCE .ROUTE 04/12/18 04:00 04/12/18 04:03 DC 04/12/18 04:00 999 MLS/HR Succinylcholine Chloride 40 mg ONCE ONCE INJ 04/12/18 04:00 04/12/18 04:01 DC 04/12/18 04:04 40 MG Vital Signs/I&O 04/12/18 04/12/18 04/12/18 04/12/18 03:51 04:04 04:10 04:41 Temp 97.3 97.3 97.3 Pulse 134 134 129 Resp 18 18 19 B/P (MAP) 130/101 (111) 130/101 Pulse Ox 99 99 95 O2 Delivery Room Air FiO2 30 Blood Pressure Mean: 111 FSBG Bedside Testing Finger Stick Blood Glucose: 280 Progress Progress Note : Time: 04:47 Progress Note The patient's condition was rapidly deteriorating and so the decision was made to protect her airway by intubating her. Unfortunately while intubating her the upper incisor that was already very fragile and freely moving in its socket was displaced. One tooth was recovered. No other tooth was noted on chest x-ray subsequently. An OG was put in place easily pulling up some gastric contents. Initial ECG Impression Date: Apr 12, 2018 Initial ECG Impression Time: 04:30 Initial ECG Rate: 133 Initial ECG Rhythm: S.Tach Initial ECG Intervals: Normal Initial ECG Intervals QRS 76 ms, QTC 465 ms Initial ECG Impression: Nonspecific Changes Comment QRS and QTc are preserved. No ST elevation or depression. Sinus tachycardia. Diagnostic Imaging Diagonstic Imaging: Xray Plain Films/CT/US/NM/MRI: chest (1v) Comments ET tube 2 cm above the antonio in good position. No infiltrates or other acute cardiopulmonary process noted. OG tube distal tip non-curled and overlying the stomach shadow. No shadow of a tooth seen on the lung wilson or in the stomach area. Reviewed: Reviewed by Me Critical Care Note Critical Care Start Time: 04:00 Stop Time: 04:30 Total Time (minutes) 30 Progress Shortly after arrival the decision was made to intubate the patient. RT and nursing building services supervisor at the bedside and we gave the patient 30 mg of etomidate and 40 mg of succinylcholine. As soon as the patient was paralyzed and sedated we were using a Ambu bag and keeping her oxygen sats 100% and her heart rate in the 125. The used a 3 Aileen and 7.5 ET tube and placed it past the vocal cords visually resting at 23 at the gumline. Unfortunately a tooth was displaced and subsequently was recovered from the back of her mouth using forceps. The patient's oropharynx was dry and did not require suctioning. She was intubated successfully on the first attempt. An OG tube was then placed by nursing and a Reich catheter as well as 2 extra IVs. 2 L of saline were ran in and we had D5 normal saline waiting however her repeat blood sugar from 369 initially was only down to 280 so we held off on starting the D5 normal saline. Patient was placed on the vent tolerating it well on the low FiO2 so we will have an ABG drawn here in about an hour when she gets to the ICU. Labs are obtained. EKG was obtained which demonstrated narrow QRS complexes and QTc in the normal range. We reviewed with poison control all of her ingestions and what can be done to alkalinize the serum etc. Sparing likely the patient will be experiencing any seizure-like activity if she did take all the lorazepam in addition to the TCAs. Since she was already drowsy at the time of presentation activated charcoal was not recommended. We did have to use soft restraints for upper extremities until the propofol was started. Tooth was placed in a bag and sent up along with her belongings on the patient's gurney between her legs to the ICU. Departure Communication (Admissions) Time/Spoke to Admitting Phy: 04:30 Discussed case lab imaging findings and intubation with Dr. Alfaro and she agrees to accept the patient the ICU and recommends eICU consultation. Impression Primary Impression: Suicide attempt by multiple drug overdose Qualified Codes: T50.902A - Poisoning by unspecified drugs, medicaments and biological substances, intentional self-harm, initial encounter Additional Impressions: Insulin overdose Qualified Codes: T38.3X2A - Poisoning by insulin and oral hypoglycemic [ antidiabetic] drugs, intentional self-harm, initial encounter Benzodiazepine (tranquilizer) overdose Qualified Codes: T42.4X2A - Poisoning by benzodiazepines, intentional self- harm, initial encounter Required emergent intubation At risk for ineffective airway clearance At high risk for airway occlusion Intentional amitriptyline overdose Qualified Codes: T43.012A - Poisoning by tricyclic antidepressants, intentional self-harm, initial encounter Disposition: ADMITTED INPATIENT Condition: Critical Admissions Decision to Admit Reason: Admit from ER (General) Decision to Admit/Date: Apr 12, 2018 Time/Decision to Admit Time: 05:02 Departure-Patient Inst. Referrals: BRI THOMAS MD (PCP/Family) Primary Care Physician Patient Instructions: ALCOHOL AND SUBSTANCE ABUSE ALBERTINA AGUDELO Apr 12, 2018 04:46
[2018-04-12 04:51] LABS: BACTERIA,URINE NEGATIVE /HPF; SQUAMOUS EPITHELIAL CELL,UR 0-2 /HPF
[2018-04-12 04:52] LABS: AMPHETAMINE SCREEN, URINE NEGATIVE (NEGATIVE); BARBITURATE SCREEN URINE NEGATIVE (NEGATIVE); BENZODIAZEPINES SCREEN URINE POSITIVE (NEGATIVE); CANNABINOID SCREEN, URINE NEGATIVE (NEGATIVE); COCAINE SCREEN URINE NEGATIVE (NEGATIVE); HCG,QUALITATIVE URINE NEGATIVE (NEGATIVE); METHADONE STAT NEGATIVE (NEGATIVE); METHAMPHETAMINE SCREEN URINE S NEGATIVE (NEGATIVE); OPIATE SCREEN URINE NEGATIVE (NEGATIVE); OXYCODONE STAT NEGATIVE (NEGATIVE); PROPOXYPHENE STAT NEGATIVE (NEGATIVE); TRICYCLIC ANTIDEPRESSANTS SCRE POSITIVE (NEGATIVE)
[2018-04-12 04:54] LABS: ALANINE AMINOTRANSFERASE 16 U/L (0-55); SALICYLATE < 5.0 MG/DL (5.0-20.0)
[2018-04-12 04:55] LABS: CREATINE KINASE 31 U/L (29-168)
--- OUTSIDE RECORDS SUMMARY | 2018-04-12 05:13 | XMS REPORT ---
Author Author NEW LE Organization [facility] Address [address] [place] [address] Care Team Providers Care Manager Inventory Control Name Role Phone NEW LE Unavailable PROBLEMS Type Condition ICD9-CM Code MCM85-DK Code Onset Dates Condition Status SNOMED Code Problem Cigarette smoker F17.210 Active 49406418 Problem Gastroesophageal reflux disease without esophagitis K21.9 Active 395551192 Problem Coronary artery disease involving [place] heart with angina pectoris, unspecified vessel or lesion type I25.119 Active 30967810 Problem Carpal tunnel syndrome on both sides G56.03 Active 83549108104741079 Problem 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.110 Active 60847630933001470 Problem Moderate episode of recurrent major depressive disorder F33.1 Active 500552652 Problem PTSD (post-traumatic stress disorder) F43.10 Active 93086742 Problem Restless leg syndrome G25.81 Active 12016875 Problem Coronary artery disease involving [place] coronary artery of [place] heart with angina pectoris I25.119 Active 9137070415289 Problem Elevated BUN R79.9 Active 267663391 Problem PVC (premature ventricular contraction) I49.3 Active 06610930 Problem Hyperlipidemia LDL goal <70 E78.5 Active 11975589 Problem Chest pain, unspecified type R07.9 Active 28665035 Problem detention current use of insulin Z79.4 Active 134710707 Problem Essential hypertension I10 Active 20138559 Problem Type 2 diabetes mellitus with diabetic polyneuropathy E11.42 Active 89974497 Problem Atherosclerotic heart disease of [place] coronary artery without angina pectoris I25.10 Active 640782962 ALLERGIES No Information ENCOUNTERS Encounter Location Date Diagnosis [facility] [address] [id number] [address] Mar, [facility] [address] [id number] [address] Mar, [facility] [address] [address] Mar, [facility] [address] [address] Mar, [facility] [id number] [place] [address]3533[address] 1696 Mar, PTSD (post-traumatic stress disorder) F43.10 [facility] [id number] [place] [address]483[address] 2544 Mar, Hyperlipidemia LDL goal <70 E78.5 and Coronary artery disease involving [place] heart with angina pectoris, unspecified vessel or lesion type I25.119 [facility] [id number] [place] [address] 69242- 0404 Mar, [facility] [id number] [place] [address] 90556- 5993 Feb, Coronary artery disease involving [place] heart with angina pectoris, unspecified vessel or lesion type I25.119 ; Type 2 diabetes mellitus with diabetic polyneuropathy E11.42 and Hospital discharge follow-up Z09 [facility] [id number] [place] [address] 78817- 2661 Feb, [facility] [id number] [place] [address] 41440- 0119 Feb, [facility] [id number] [place] [address] 97734- 6137 Feb, Type 2 diabetes mellitus with diabetic polyneuropathy E11.42 [facility] [id number] [place] [address] 16503- 2724 Feb, [facility] [id number] [place] [address] 51720- 5832 Feb, [facility] [id number] [place] [address] 12332- 6843 Jan, [facility] [id number] [place] [address] 91035- 6716 Jan, Carpal tunnel syndrome on both sides G56.03 [place] [id number] [place] [address] 55145- 7569 Jan, PTSD (post-traumatic stress disorder) F43.10 and Moderate episode of recurrent major depressive disorder F33.1 [facility] [id number] [place] [address] 26797- 7990 Jan, [place] [address] [address] Jan, PTSD (post-traumatic stress disorder) F43.10 and Moderate episode of recurrent major depressive disorder F33.1 [facility] [facility] [id number] [place] [address] 76789- 7640 Jan, Type 2 diabetes mellitus with diabetic polyneuropathy E11.42 [place] [address] 24720- 5454 Jan, PTSD (post-traumatic stress disorder) F43.10 and Moderate episode of recurrent major depressive disorder F33.1 [place] [address] 43287- 3885 Jan, PTSD (post-traumatic stress disorder) F43.10 and Moderate episode of recurrent major depressive disorder F33.1 [place] [facility] [id number] [place] [address] 87318- 8566 Jan, [facility] [id number] [place] [address] 69246 [address]3508 Jan, Pain of left hand M79.642 and Pain in right hand M79.641 [facility] [id number] [place] [address] 52385- 4680 Jan, [facility] [id number] [place] [address] 97571- 3065 Dec, Bilateral hand numbness R20.0 [place] [id number] [place] [address] 85354- 5125 25 Dec, 2017 PTSD (post-traumatic stress disorder) F43.10 and Moderate episode of recurrent major depressive disorder F33.1 [place] [id number] [place] [address] 17286- 1367 24 Dec, 2017 Type 2 diabetes mellitus with diabetic polyneuropathy E11.42 [place] [id number] [place] [address] 17464- 6917 Dec, [place] [facility] [id number] [place] [address] 39107- 3074 Dec, Type 2 diabetes mellitus with diabetic polyneuropathy E11.42 and 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.110 [place] [id number] [place] [address] 59115- 4933 18 Dec, 2017 Bilateral hand numbness R20.0 [place] [id number] [place] [address] 19838- 0337 18 Dec, 2017 Moderate episode of recurrent major depressive disorder F33.1 ; Type 2 diabetes mellitus with diabetic polyneuropathy E11.42 ; detention current use of insulin Z79.4 ; Hyperlipidemia LDL goal <70 E78.5 ; Chest pain, unspecified type R07.9 ; Atherosclerotic heart disease of [place] coronary artery without angina pectoris I25.10 ; Cigarette smoker F17.210 ; Gastroesophageal reflux disease without esophagitis K21.9 and Restless leg syndrome G25.81 [place] [place] [id number] [place] [address] 66741- 2806 18 Dec, 2017 PTSD (post-traumatic stress disorder) F43.10 and Moderate episode of recurrent major depressive disorder F33.1 [place] [id number] [place] [address] 89887- 5118 11 Dec, 2017 Moderate episode of recurrent major depressive disorder F33.1 [place] [address] [place] [address] 29340- 3834 Dec, [place] [id number] [place] [address] 22945- 9372 Dec, [place] [place] [id number] [place] [address] 46760- 0451 Dec, Uncontrolled type 2 diabetes mellitus with hyperglycemia E11.65 and Flatulence/gas pain/belching R14.0 [place] [id number] [place] [address] 38509- 9110 Nov, [place] [address] 6[address]30- [address] Nov, PTSD (post-traumatic stress disorder) F43.10 and Moderate episode of recurrent major depressive disorder F33.1 [place] [id number] [place] [address] 75979- 0115 Nov, Chest pain, unspecified type R07.9 ; Coronary artery disease involving [place] coronary artery of [place] heart with angina pectoris I25.119 ; Restless leg syndrome G25.81 ; Hospital discharge follow-up Z09 and Type 2 diabetes mellitus with diabetic polyneuropathy E11.42 [place] [id number] [place] [address] 85775- 6325 Nov, Hyperlipidemia LDL goal <70 E78.5 [id number] [place] [address] 35112- 9539 14 Nov, 2017 Hospital discharge follow-up Z09 ; Chest pain, unspecified type R07.9 ; Coronary artery disease involving [place] coronary artery of [place] heart with angina pectoris I25.119 and Gastroesophageal reflux disease without esophagitis K21.9 [place] [id number] [place] [address] 42835- 6692 Nov, PTSD (post-traumatic stress disorder) F43.10 and Moderate episode of recurrent major depressive disorder F33.1 [place] [id number] [place] [address] 04312- 6774 Oct, Type 2 diabetes mellitus with diabetic polyneuropathy E11.42 [place] [id number] [place] [address] 52030- 4617 Oct, Diarrhea, unspecified type R19.7 ; Gastroesophageal reflux disease without esophagitis K21.9 and Vaginal discharge N89.8 [place] [address] 97071- 8110 Oct, Type 2 diabetes mellitus with diabetic polyneuropathy E11.42 [place] [id number] [place] [address] 71494- 4106 Oct, Hyperlipidemia LDL goal <70 E78.5 [place] [address] 59843- 3605 Oct, Atherosclerotic heart disease of [place] coronary artery without angina pectoris I25.10 ; Coronary artery disease involving [place] heart with angina pectoris, unspecified vessel or lesion type I25.119 ; Type 2 diabetes mellitus with diabetic polyneuropathy E11.42 ; Hyperlipidemia LDL goal <70 E78.5 ; Cigarette smoker F17.210 and Post-traumatic stress reaction F43.10 [place] [address] 86064- 9358 Oct, [place] [address] 70678- 2026 Oct, Difficulty breathing R06.89 ; Hospital discharge follow-up Z09 and Bilateral lower extremity edema R60.0 [place] [id number] [place] [address] 56096- 4596 Oct, [facility] [id number] [place] [address] 23693 -8923 Oct, Dependent edema R60.9 [facility] [id number] [place] [address] 16328- 3255 Oct, [place] [address] 69772- 6297 Oct, [place] [address] 95501- 7512 Oct, Type 2 diabetes mellitus with diabetic polyneuropathy E11.42 [place] [address] [place] [address]- [address] Oct, [facility] [id number] [place] [address] 68595- 8050 Sep, [facility] [id number] [place] [address] 62534- 2179 August, [facility] [id number] [place] [address] 50558- 1844 Jul, [facility] [id number] [place] [address] 36329- 5691 Jul, Establishing care with new doctor, encounter for Z76.89 ; Type 2 diabetes mellitus with diabetic polyneuropathy E11.42 ; detention current use of insulin Z79.4 ; Hyperlipidemia LDL goal <70 E78.5 ; Essential hypertension I10 and Chest pain, unspecified type R07.9 [facility] [id number] [place] [address] 49006- 7230 Jul, [facility] [id number] [place] [address] 73017- 8843 Jul, [facility] [id number] [place] [address] 99816- 2064 Jun, [facility] [id number] [place] [address] 24877- 6569 Jun, [facility] [id number] [place] [address] 80032- 4853 Jun, [facility] [id number] [place] [address] 00450- 2299 Jun, Acute hyperglycemia R73.9 ; Type 2 diabetes mellitus with diabetic polyneuropathy E11.42 ; 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.4 ; HTN, goal below 130/80 I10 and Hyperlipidemia LDL goal <70 E78.5 [facility] [address] [address] August, [facility] [id number] [place] [address] 20524 -0747 August, [facility] [address] [id number] [address] August, Acute vaginitis N76.0 ; Trichomonas vaginitis A59.01 and Vaginal discharge N89.8 IMMUNIZATIONS No Known Immunizations SOCIAL HISTORY Never Assessed REASON FOR VISIT triage PLAN OF CARE VITAL SIGNS MEDICATIONS Unknown Medications RESULTS No Results PROCEDURES No Known procedures INSTRUCTIONS MEDICATIONS ADMINISTERED No Known Medications MEDICAL (GENERAL) HISTORY Type Description Date Medical History Type 2 diabetes mellitus with diabetic polyneuropathy Medical History detention 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
--- OUTSIDE RECORDS SUMMARY | 2018-04-12 05:13 | XMS REPORT | Clinical Summary ---
Author Author [facility] Organization [facility] Address Unknown Phone Unavailable Care Team Providers Care Manager Hris Name Role Phone Alfred Diaz MD PCP Unavailable Source Comments Some departments are not documenting in the electronic medical record. If you do not see the information that you expected, contact Release of Information in the Health Information Management department at [phone] for further assistance in locating additional records.[facility] Allergies Not on File Medications [...] ID Type Phone Address Plan / Group [facility] MEDICAID [facility] xxxxxxxxxxx Medicaid [place] Advance Directives Patient has advance care planning documents on file. For more information, please contact: [facility] [address] [place] [address]
--- OUTSIDE RECORDS SUMMARY | 2018-04-12 05:14 | XMS REPORT ---
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 Name Role Phone NEW LE Unavailable PROBLEMS Type Condition ICD9-CM Code DCD88-PP Code Onset Dates Condition Status SNOMED Code Problem Cigarette smoker F17.210 Active 51094666 Problem Gastroesophageal reflux disease without esophagitis K21.9 Active 179837249 Problem Coronary artery disease involving nisqually heart with angina pectoris, unspecified vessel or lesion type I25.119 Active 85157304 Problem Carpal tunnel syndrome on both sides G56.03 Active 67401880057566782 Problem Atherosclerotic heart disease of nisqually coronary artery with unstable angina pectoris I25.110 Active 43174994412050276 Problem Moderate episode of recurrent major depressive disorder F33.1 Active 385446766 Problem PTSD (post-traumatic stress disorder) F43.10 Active 05892082 Problem Restless leg syndrome G25.81 Active 14527776 Problem Coronary artery disease involving nisqually coronary artery of nisqually heart with angina pectoris I25.119 Active 6347828676821 Problem Elevated BUN R79.9 Active 038402660 Problem PVC (premature ventricular contraction) I49.3 Active 14538495 Problem Hyperlipidemia LDL goal <70 E78.5 Active 89896632 Problem Chest pain, unspecified type R07.9 Active 69632745 Problem intermediate current use of insulin Z79.4 Active 300467446 Problem Essential hypertension I10 Active 27525537 Problem Type 2 diabetes mellitus with diabetic polyneuropathy E11.42 Active 80537486 Problem Atherosclerotic heart disease of nisqually coronary artery without angina pectoris I25.10 Active 850429161 ALLERGIES No Information ENCOUNTERS Encounter Location Date Diagnosis [facility] [address] [facility] [id number], [place] [address] Mar, [facility] [id number] [address] Mar, [facility] [address], [place] [address] Mar, [facility] [address], [place] [address] Mar, [facility] [id number] [place] [address] 19200- 7651 Mar, PTSD (post-traumatic stress disorder) F43.10 [facility] [id number] [place] [address] 06115[address] 9295 Mar, Hyperlipidemia LDL goal <70 E78.5 and Coronary artery disease involving nisqually heart with angina pectoris, unspecified vessel or lesion type I25.119 [facility] [id number] [place] [address] 38122- 4008 Mar, [facility] [id number] [place] [address] 46507- 2373 Feb, Coronary artery disease involving nisqually heart with angina pectoris, unspecified vessel or lesion type I25.119 ; Type 2 diabetes mellitus with diabetic polyneuropathy E11.42 and Hospital discharge follow-up Z09 [facility] [id number] [place] [address] 89228- 0804 Feb, [facility] [id number] [place] [address] 76365- 0450 Feb, [facility] [id number] [place] [address] 87354- 9682 Feb, Type 2 diabetes mellitus with diabetic polyneuropathy E11.42 [facility] [id number] [place] [address] 94923- 1744 Feb, [facility] [id number] [place] [address] 55132- 3509 Feb, [facility] [id number] [place] [address] 80209- 8651 Jan, [facility] [id number] [place] [address] 82956- 4440 Jan, Carpal tunnel syndrome on both sides G56.03 [place] [id number] [place] [address] 27982- 6564 Jan, PTSD (post-traumatic stress disorder) F43.10 and Moderate episode of recurrent major depressive disorder F33.1 [facility] [id number] [place] [address] 89008- 4115 Jan, [place] [address] [address] Jan, PTSD (post-traumatic stress disorder) F43.10 and Moderate episode of recurrent major depressive disorder F33.1 [place] [id number] [place] [address] 14795- 2132 Jan, Type 2 diabetes mellitus with diabetic polyneuropathy E11.42 [place] [address] 24[address]- 8940 Jan, PTSD (post-traumatic stress disorder) F43.10 and Moderate episode of recurrent major depressive disorder F33.1 [place] [address] 48883- 8464 Jan, PTSD (post-traumatic stress disorder) F43.10 and Moderate episode of recurrent major depressive disorder F33.1 [place] [id number] [place] [address] 76019- 7339 Jan, [facility] [id number] [place] [address] Jan, Pain of left hand M79.642 and Pain in right hand M79.641 [facility] [id number] [place] [address] 53922- 8573 Jan, [facility] [id number] [place] [address] 62049- 6272 Dec, Bilateral hand numbness R20.0 [place] [id number] [place] [address] 99426- 8939 25 Dec, 2017 PTSD (post-traumatic stress disorder) F43.10 and Moderate episode of recurrent major depressive disorder F33.1 [place] [id number] [place] [address] 52276- 8749 24 Dec, 2017 Type 2 diabetes mellitus with diabetic polyneuropathy E11.42 [place] [id number] [place] [address] 11450- 3693 Dec, [place] [id number] [place] [address] 66267- 6685 Dec, Type 2 diabetes mellitus with diabetic polyneuropathy E11.42 and Atherosclerotic heart disease of nisqually coronary artery with unstable angina pectoris I25.110 [place] [id number] [place] [address] 39906- 3436 18 Dec, 2017 Bilateral hand numbness R20.0 [place] [id number] [place] [address] 74622- 1384 18 Dec, 2017 Moderate episode of recurrent major depressive disorder F33.1 ; Type 2 diabetes mellitus with diabetic polyneuropathy E11.42 ; intermediate current use of insulin Z79.4 ; Hyperlipidemia LDL goal <70 E78.5 ; Chest pain, unspecified type R07.9 ; Atherosclerotic heart disease of nisqually coronary artery without angina pectoris I25.10 ; Cigarette smoker F17.210 ; Gastroesophageal reflux disease without esophagitis K21.9 and Restless leg syndrome G25.81 [place] [id number] [place] [address] 58684- 7331 18 Dec, 2017 PTSD (post-traumatic stress disorder) F43.10 and Moderate episode of recurrent major depressive disorder F33.1 [place] [id number] [place] [address] 62802- 7711 11 Dec, 2017 Moderate episode of recurrent major depressive disorder F33.1 [place] [id number] [place] [address] 92293- 9594 Dec, [place] [id number] [place] [address] 74228- 6711 Dec, [place] [id number] [place] [address] 53936- 7211 Dec, Uncontrolled type 2 diabetes mellitus with hyperglycemia E11.65 and Flatulence/gas pain/belching R14.0 [place] [id number] [place] [address] 95848- 4835 Nov, [place] [address] 45094- 2676 Nov, PTSD (post-traumatic stress disorder) F43.10 and Moderate episode of recurrent major depressive disorder F33.1 [place] [id number] [place] [address] 87220- 0678 Nov, Chest pain, unspecified type R07.9 ; Coronary artery disease involving nisqually coronary artery of nisqually heart with angina pectoris I25.119 ; Restless leg syndrome G25.81 ; Hospital discharge follow-up Z09 and Type 2 diabetes mellitus with diabetic polyneuropathy E11.42 [place] [id number] [place] [address] 98839- 9099 Nov, Hyperlipidemia LDL goal <70 E78.5 [place] [id number] [place] [address] 56032- 6986 14 Nov, 2017 Hospital discharge follow-up Z09 ; Chest pain, unspecified type R07.9 ; Coronary artery disease involving nisqually coronary artery of nisqually heart with angina pectoris I25.119 and Gastroesophageal reflux disease without esophagitis K21.9 [place] [id number] [place] [address] 99829- 8641 Nov, PTSD (post-traumatic stress disorder) F43.10 and Moderate episode of recurrent major depressive disorder F33.1 [place] [id number] [place] [address] 39959- 1910 Oct, Type 2 diabetes mellitus with diabetic polyneuropathy E11.42 [place] [id number] [place] [address] 05102- 4721 Oct, Diarrhea, unspecified type R19.7 ; Gastroesophageal reflux disease without esophagitis K21.9 and Vaginal discharge N89.8 [place] [address] 57473- 8670 Oct, Type 2 diabetes mellitus with diabetic polyneuropathy E11.42 [place] [id number] [place] [address] 25791- 0367 Oct, Hyperlipidemia LDL goal <70 E78.5 [place] [address] 56782- 7622 Oct, Atherosclerotic heart disease of nisqually coronary artery without angina pectoris I25.10 ; Coronary artery disease involving nisqually heart with angina pectoris, unspecified vessel or lesion type I25.119 ; Type 2 diabetes mellitus with diabetic polyneuropathy E11.42 ; Hyperlipidemia LDL goal <70 E78.5 ; Cigarette smoker F17.210 and Post-traumatic stress reaction F43.10 [place] [address] 55209- 7091 Oct, [place] [address] 56826- 7095 Oct, Difficulty breathing R06.89 ; Hospital discharge follow-up Z09 and Bilateral lower extremity edema R60.0 [place] [id number] [place] [address] 02891- 0599 Oct, [facility] [id number] [place] [address] 98073 -5647 Oct, Dependent edema R60.9 [facility] [id number] [place] [address] 22073- 6709 Oct, [place] [address] 56483- 4908 Oct, [place] [address] 09140- 7271 Oct, Type 2 diabetes mellitus with diabetic polyneuropathy E11.42 [place] [address] [place] [address]- 85[address] Oct, [facility] [id number] [place] [address] 36727- 6478 Sep, [facility] [id number] [place] [address] 51245- 6919 August, [facility] [id number] [place] [address] 28444- 6750 Jul, [facility] [id number] [place] [address] 83072- 5222 Jul, Establishing care with new doctor, encounter for Z76.89 ; Type 2 diabetes mellitus with diabetic polyneuropathy E11.42 ; intermediate current use of insulin Z79.4 ; Hyperlipidemia LDL goal <70 E78.5 ; Essential hypertension I10 and Chest pain, unspecified type R07.9 [facility] [id number] [place] [address] 03420- 9593 Jul, [facility] [id number] [place] [address] 20325- 7561 Jul, [facility] [id number] [place] [address] 25851- 1740 Jun, [facility] [id number] [place] [address] 25370- 3013 Jun, [facility] [id number] [place] [address] 76999- 8366 Jun, [facility] [id number] [place] [address] 08161- 4780 Jun, Acute hyperglycemia R73.9 ; Type 2 diabetes mellitus with diabetic polyneuropathy E11.42 ; 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 ; HTN, goal below 130/80 I10 and Hyperlipidemia LDL goal <70 E78.5 [facility] [address], [place] [address] August, [facility] [id number] [place] [address] 33601 [address]58[address] August, [facility] [address] [facility] [id number] [address] August, Acute vaginitis N76.0 ; Trichomonas vaginitis A59.01 and Vaginal discharge N89.8 IMMUNIZATIONS No Known Immunizations SOCIAL HISTORY Never Assessed REASON FOR VISIT BS fu attempt PLAN OF CARE VITAL SIGNS MEDICATIONS Unknown Medications RESULTS No Results PROCEDURES No Known procedures INSTRUCTIONS MEDICATIONS ADMINISTERED No Known Medications MEDICAL (GENERAL) HISTORY Type Description Date Medical History Type 2 diabetes mellitus with diabetic polyneuropathy Medical History intermediate 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
--- NOTE | 2018-04-12 05:31 | Diagnostic Imaging Report ---
INDICATION: Respiratory failure. COMPARISON: None FINDINGS: Single frontal radiographic view of the chest was obtained and demonstrates indwelling endotracheal tube with tip at the clavicular heads. Gastric tube is also seen with tip and side port in the stomach. Lungs show low inspiratory volumes, but are otherwise clear. There is no large effusion or pneumothorax. Cardiac silhouette and pulmonary vasculature within normal limits. Bony structures show no gross acute Abnormalities. IMPRESSION: 1. Lines and tubes as above. Otherwise, no acute cardiopulmonary process. Dictated by: Dictated on workstation # [id number]
[2018-04-12] MEDS ORDERED: fentaNYL INJECTION 100 MCG/2 ML AMP ONE (05:42)
[2018-04-12 05:47] LABS: ABG BASE EXCESS -2.2 MMOL/L (-2.5-2.5); ABG OXYGEN SATURATION 96 % (94-100); ABG PCO2 43 MMHG (35-45); ABG PO2 108 MMHG (79-93)
[2018-04-12] MEDS: fentaNYL INJECTION 100 MCG/2 ML AMP IVP PRN ×2 (05:52→19:51)
[2018-04-12 05:53] LABS: ABG PH 7.34 (7.37-7.43)
[2018-04-12 05:54] LABS: ALLENS TEST YES-POS; INSPIRED O2 30%; PATIENT TEMP 98.2; VENTILATOR YES
[2018-04-12] MEDS: PROPOFOL DRIP (ICU) 100 ML IV SCH ×9 (05:54→22:55)
[2018-04-12] MEDS ORDERED: RT-ALBUTEROL/IPRATROPIUM 3 ML (DUONEB) VIAL ONE (06:22)
[2018-04-12] MEDS ORDERED: ACETAMINOPHEN 650 MG SUPP (TYLENOL) PR PRN (06:45)
[2018-04-12] MEDS ORDERED: DEXTROSE 50% 50 ML (IMS) SYR IV PRN (06:45)
[2018-04-12] MEDS ORDERED: ONDANSETRON 4 MG/2 ML (SDV) Z0FRAN IV PRN (06:45)
--- NOTE | 2018-04-12 06:57 | Pulmonary Consultation ---
History of Present Illness History of Present Illness Date of Consultation 04/12/18 06:52 Time Seen by Provider: 06:52 Date of Admission History of Present Illness 38yo presented to ED via EMS after intentional OD. Pt took Humalog, and Levemir and multiple other medications. Gabapentin 300mg possibly 90, lorazepam 1mg possibly 28, amitriptyline 25 mg possibly 30. Initial blood sugar per EMS was 369. She was drowsy but talking and oriented 3 however while in the ED pt continued to decline and was intubated in the ED. During intubation tooth was displaced and subsequently was recovered from the back of her mouth using forceps. Poison controlled was called. Bicarb gtt is ordered. Allergies and Home Medications Allergies Coded Allergies: coconut (Verified Allergy, Severe, anaphylactic reaction, 07/11/17) ketorolac (Unverified Allergy, Unknown, 08/19/15) Home Medications Albuterol Sulfate 18 Gm Hfa.aer.ad, 2 PUFF IH Q4H PRN for SHORTNESS OF BREATH Prescribed by: ERNESTO MEADOWS on 10/24/17 1406 Aspirin 81 Mg Tab.chew, 81 MG PO DAILY Prescribed by: RALPH BLANCO on 10/29/17 0923 Atorvastatin Calcium 80 Mg Tablet, 80 MG PO HS Prescribed by: KRISTAL IZAGUIRRE on 12/03/17 0758 Cephalexin 500 Mg Capsule, 500 MG PO BID Prescribed by: ALBERTINA AGUDELO on 03/28/18 2253 Clopidogrel Bisulfate 75 Mg Tablet, 75 MG PO DAILY Prescribed by: RALPH BLANCO on 10/29/17 0923 Ibuprofen 800 Mg Tablet, 800 MG PO Q8H PRN for PAIN Prescribed by: NORIS KEVIN on 03/10/18 1317 Insulin Determir 1,000 Units/10 Ml Soln, 20 UNITS SQ BID Prescribed by: NORIS KEVIN on 11/17/17 1131 Insulin Lispro 100 Unit/1 Ml Insuln.pen, 15 UNIT SQ TIDAC Prescribed by: NORIS KEVIN on 11/17/17 1131 Isosorbide Mononitrate 30 Mg Tab.er.24h, 30 MG PO DAILY Prescribed by: KRISTAL IZAGUIRRE on 11/17/17 0943 Lisinopril 5 Mg Tablet, 5 MG PO DAILY@0900 Prescribed by: KRISTAL IZAGUIRRE on 12/03/17 0758 Lorazepam 1 Mg Tablet, 2 MG PO Q6H PRN for ANXIETY Prescribed by: BRI THOMAS on 03/10/18 1227 Metoprolol Succinate 50 Mg Tab.er.24h, 50 MG PO BID Prescribed by: RALPH BLANCO on 10/29/17 1131 Naproxen 500 Mg Tablet, 500 MG PO BID Prescribed by: NESSA MIJARES on 12/23/17 0223 Pantoprazole Sodium 40 Mg Granpkt.dr, 40 MG PO DAILY Prescribed by: KRISTAL IZAGUIRRE on 11/17/17 0943 Ranolazine 500 Mg Tab.er.12h, 500 MG PO BID Prescribed by: KRISTAL IZAGUIRRE on 12/03/17 0758 Tramadol HCl 50 Mg Tablet, 50 MG PO Q6H PRN for PAIN Prescribed by: ALBERTINA AGUDELO on 03/28/18 2253 Past Vahtyco-Gbawjx-Vbospx Hx Patient Social History Alcohol Use: Denies Use Recreational Drug Use: No Drug of Choice: UNK Smoking Status: Unknown if Ever Smoked Type Used: Cigarettes Former Smoker, Quit: Mar 14, 2018 2nd Hand Smoke Exposure: Yes Recent Foreign Travel: No Contact w/Someone Who Travel: No Recent Infectious Disease Expo: No Recent Hopitalizations: No Physical Abuse: No Sexual Abuse: No Mistreated: No Fear: No Immunizations Up To Date Tetanus Booster (TDap): Unknown PED Vaccines UTD: No Date of Pneumonia Vaccine: September 09, 2016 Seasonal Allergies Seasonal Allergies: No Past Medical History Surgeries: Yes Breast, Cardiac, Section, Coronary Stent, Tubal Ligation Respiratory: No Currently Using CPAP: No Currently Using BIPAP: No Cardiac: Yes (Hx of stent to LAD.) Coronary Artery Disease, Heart Attack, Hypertension Neurological: Yes Neuropathy : No (UNK) Reproductive Disorders: No Female Reproductive Disorders: Ovarian Cyst Sexually Transmitted Disease: No HIV/AIDS: No Genitourinary: No Gastrointestinal: No Musculoskeletal: Yes (carpal tunnel bilat hands) Chronic Back Pain Endocrine: Yes Diabetes, Insulin dep, Diabetes, Non-Insulin dep HEENT: No Loss of Vision: Denies Hearing Impairment: Denies Cancer: No Psychosocial: No Nursing Suicide Risk Notes: PT WITH INTENTIONAL OVERDOSE MULTIPLE MEDICATIONS. Integumentary: No Blood Disorders: No Adverse Reaction/Blood Tranf: No Family Medical History Cardiovascular disease 19 FATHER, Onset:Unknown 19 MOTHER, Onset:Unknown Diabetes mellitus 19 FATHER 19 MOTHER Heart Disease, Diabetes, Other Conditions/Hx Review of Systems Time Seen by Provider: 07:16 Sepsis Event Evaluation Height, Weight, BMI Height: 5'2.00" Weight: 158lbs. 5.0oz. 71.764836ys; 29.5 BMI Method:Stated Exam Exam Vital Signs Date Time Temp Pulse Resp B/P (MAP) Pulse Ox O2 Delivery O2 Flow Rate FiO2 04/12/18 06:33 126 19 97 30 04/12/18 06:15 126 18 121/83 (96) 98 Mechanical Ventilator 30.00 04/12/18 06:00 125 18 115/79 (91) 98 Mechanical Ventilator 30.00 04/12/18 05:54 145/117 04/12/18 05:45 135 22 159/130 (140) 98 Mechanical Ventilator 30.00 04/12/18 05:37 98.2 124 23 145/117 (126) 98 Mechanical Ventilator 30.00 04/12/18 05:36 130 04/12/18 05:10 98.1 126 13 140/107 (118) 98 Mechanical Ventilator 04/12/18 04:41 129 19 95 30 04/12/18 04:10 97.3 134 18 130/101 99 04/12/18 04:04 97.3 04/12/18 03:51 97.3 134 18 130/101 (111) 99 Room Air I & O 04/12/18 07:00 Intake Total 2000 ml Output Total 575 ml Balance 1425 ml Height & Weight Height: 5'2.00" Weight: 158lbs. 5.0oz. 71.940659nb; 29.5 BMI Method:Stated General Appearance: Other (sedated on vent ) HEENT: PERRL/EOMI, Pharynx Normal Neck: Supple Respiratory: Chest Non Tender, Lungs Clear, Normal Breath Sounds, No Accessory Muscle Use, No Respiratory Distress Cardiovascular: Regular Rate, Rhythm, No Edema, No Gallop Capillary Refill: Less Than 3 Seconds Peripheral Pulses: 2+ Radial Pulses (R), 2+ Radial Pulses (L) Gastrointestinal: normal bowel sounds, non tender, soft Extremity: Normal Capillary Refill, Normal Inspection Neurologic/Psychiatric: Other (sedated on vent) Skin: Normal Color, Warm/Dry Lymphatic: No Adenopathy Results Lab Laboratory Tests 12/28/18 04:00 Assessment/Plan Assessment/Plan Acute respiratory failure for airway protection -Continue ventilator care Suicidal attempt with multisubstance OD including insulin, amitriptyline -Poison control contacted -Bicarb gtt -Continue D5W with 3amps of bicarb IVF -Accu checks Q 1hr Hyponatremia -Monitor -Continue NS Hypokalemia -replace and recheck -Check mg, and phos Metabolic acidosis -Continue bicarb gtt. HX of CAD with stent placement Tobacco use Hx of IDDM Depression TELMA HUITRON DO Apr 12, 2018 06:57
[2018-04-12] MEDS ORDERED: fentaNYL INJECTION 100 MCG/2 ML AMP IV PRN (07:00)
[2018-04-12 07:17] LABS: MAGNESIUM 3.2 MG/DL (1.8-2.4); PHOSPHORUS 2.4 MG/DL (2.3-4.7)
[2018-04-12] MEDS: D5 NS 1000 ML IV SOLUTION 1,000 ML IV SCH ×2 (07:57→17:00)
[2018-04-12] MEDS: CHLORHEXIDINE 0.12% SOLN 15 ML (PERIDEX) UDC PO SCH ×2 (07:58→21:20)
[2018-04-12] MEDS: POTASSIUM CL 10 MEQ/50 ML IVPB (PRE-MIX) IV SCH ×4 (07:58→11:25)
[2018-04-12] MEDS: FAMOTIDINE 20MG/2ML IV (PEPCID) IVP SCH ×2 (07:58→21:20)
--- NOTE | 2018-04-12 08:00 | NUR ---
PT HAD 2 RINGS ON, RINGS REMOVED AND GIVEN TO Slim HOLLIS.
[2018-04-12] MEDS: SODIUM BICARBONATE 8.4% VIAL 150 MEQ in D5W 1000 ML IV SOLUTION 1,000 ML IV SCH ×3 (08:38→23:19)
[2018-04-12] MEDS ORDERED: FLU QUADRIvalent (5+ YOA) 2018-2019 (AFLURIA) 0.5 ML IM ONE (08:45)
[2018-04-12] MEDS: RT-ALBUTEROL/IPRATROPIUM 3 ML (DUONEB) VIAL INH SCH ×4 (09:46→21:18)
[2018-04-12] MEDS ORDERED: ISOS30TA3 PO (10:31)
[2018-04-12] MEDS ORDERED: CLOP75TA69 PO (10:31)
[2018-04-12] MEDS ORDERED: METO-370 PO (10:31)
[2018-04-12] MEDS ORDERED: AMIT25TA9 PO (10:31)
[2018-04-12] MEDS ORDERED: ATOR80TA76 PO (10:31)
[2018-04-12] MEDS ORDERED: GABA-488 PO (10:31)
[2018-04-12] MEDS ORDERED: LORA1TAB PO (10:31)
[2018-04-12] MEDS ORDERED: HYDR-700 PO (10:31)
[2018-04-12] MEDS ORDERED: METF-399 PO (10:31)
[2018-04-12] MEDS ORDERED: RANI150T90 PO (10:31)
[2018-04-12] MEDS ORDERED: PANT40TA2 PO (10:31)
[2018-04-12] MEDS ORDERED: SERT100T8 PO (10:36)
[2018-04-12] MEDS ORDERED: ASPI-999 PO (10:44)
[2018-04-12] MEDS ORDERED: INSU100I23 SQ (11:00)
[2018-04-12] MEDS ORDERED: INSU100I29 SQ (11:00)
[2018-04-12] MEDS ORDERED: RT-ALBUINH INH (11:00)
[2018-04-12] MEDS ORDERED: LIRA0.6P SQ (11:04)
--- NOTE | 2018-04-12 11:14 | NUR ---
UNABLE TO SPEAK WITH THE PATIENT ABOUT HER MEDICATIONS AT THIS TIME. I CALLED AND HAD A LIST FAXED OVER FROM [facility]. I ALSO SPOKE WITH DR. PRICE'S OFFICE. [facility] FILLED: 03-30-18 METFORMIN 1000MG BID #60 03-30-18 RANITIDINE 150MG HS #30 03-30-18 ATORVASTATIN 80MG DAILY #30 03-30-18 PLAVIX 75MG DAILY #30 03-30-18 METOPROLOL SUCCINATE 50MG BID #60 03-30-18 GABAPENTIN 300MG TID #90 03-29-18 LORAZEPAM 1MG BID #28 03-20-18 AMITRIPTYLINE 25MG HS #30 03-15-18 IMDUR 30MG DAILY #30 03-13-18 PROTONIX 40MG DAILY #30 03-11-18 HYDROXYZINE HCL 25MG Q8H PRN #90 01-30-18 SERTRALINE 100MG 1/5 TAB DAILY #45 12-03-17 LISINOPRIL 5MG DAILY #30 (REMOVED FROM MED REC AT THIS TIME, PAST DUE REFILL) HUMALOG 10 UNITS TID (HAS MORE RECENTLY REPORTED 15 UNITS TID) OCTOBER LEVEMIR 15 UNITS BID (HAS MORE RECENTLY REPORTED 20 UNITS BID) [facility] ALSO HAS RANEXA ON HOLD HOWEVER IT HAS NOT BEEN PICKED UP, THEY REPORT IT WAS QUITE EXPENSIVE, THEY DO NOT HAVE VICTOZA ON FILE EITHER WHICH THE PATIENT HAS REPORTED TAKING. I LEFT THE VICTOZA ON FILE BUT DID NOT INCLUDE THE RANEXA. THE OFFICE DOES NOT HAVE RECORDS OF GIVING THE PATIENT ANYTHING SAMPLES OR THROUGH THE REPOSITORY. THE PHARMACY HAS NOT SIGNED ANYTHING OUT TO THE PATIENT THROUGH PALS. IN ADDITION DR. PRICE'S OFFICE STATES THE PATIENT IS TO BE TAKING ASPIRIN 81MG DAILY CHEWABLE AND THE PATIENT HAS REPORTED USING VENTOLIN INHALER PRN. Addendum: 04/12/18 at 1123 by ELIOT SAWYRE [facility] I ALSO SPOKE WITH [facility] IN [place] AND THEY HAVE NOT DISPENSED ANY MEDICATIONS RECENTLY, THE [email or web address] [facility] DISPENSED A SHORT SUPPLY OF PREDNISONE IN JANUARY. WHEN THE PATIENT WAS DISCHARGED FROM THE HOSPITAL IN NOVEMBER SEVERAL SCRIPTS WERE SENT TO [facility] IN [place], I CALLED THEM AND NONE WERE PICKED UP THERE, THEY WERE ALL STORED ON HER PROFILE.
[2018-04-12] MEDS: POTASSIUM CL 10MEQ/50ML IVPB 50 ML IV SCH ×2 (12:18→12:39)
[2018-04-12 14:12] LABS: BASOPHILS % (AUTO) 0 % (0-10); EOSINOPHILS # (AUTO) 0.2 10^3/uL (0.0-0.3); EOSINOPHILS % (AUTO) 2 % (0-10); HEMATOCRIT 32 % (35-52); HEMOGLOBIN 11.1 G/DL (11.5-16.0); LYMPHOCYTES % (AUTO) 23 % (12-44); MEAN CORPUSCULAR HEMOGLOBIN 26 PG (25-34); MEAN CORPUSCULAR HGB CONC 34 G/DL (32-36); MEAN CORPUSCULAR VOLUME 76 FL (80-99); MEAN PLATELET VOLUME 8.8 FL (7.4-10.4); MONOCYTES # (AUTO) 0.5 X 10^3 (0.0-1.0); MONOCYTES % (AUTO) 6 % (0-12); NEUTROPHILS # (AUTO) 5.8 X 10^3 (1.8-7.8); NEUTROPHILS % (AUTO) 68 % (42-75); PLATELET COUNT 346 10^3/uL (130-400); RED BLOOD COUNT 4.26 10^6/uL (4.35-5.85); RED CELL DISTRIBUTION WIDTH 15.1 % (10.0-14.5); WHITE BLOOD COUNT 8.4 10^3/uL (4.3-11.0)
[2018-04-12 14:33] LABS: ALANINE AMINOTRANSFERASE 12 U/L (0-55); ALBUMIN 3.1 GM/DL (3.2-4.5); ALKALINE PHOSPHATASE 132 U/L (40-136); BILIRUBIN,TOTAL 0.4 MG/DL (0.1-1.0); BUN/CREATININE RATIO 5; CALCIUM 7.6 MG/DL (8.5-10.1); CARBON DIOXIDE 20 MMOL/L (21-32); CHLORIDE 103 MMOL/L (98-107); CREATININE SERUM 0.56 MG/DL (0.60-1.30); GFR ESTIMATED > 60; GLUCOSE 233 MG/DL (70-105); MAGNESIUM 2.1 MG/DL (1.8-2.4); PHOSPHORUS 1.9 MG/DL (2.3-4.7); POTASSIUM 3.8 MMOL/L (3.6-5.0); SODIUM 135 MMOL/L (135-145); TOTAL PROTEIN 7.3 GM/DL (6.4-8.2)
--- NOTE | 2018-04-12 14:49 | History & Physicial (CHS) ---
HPI History of Present Illness: Pt reported ingested Gabapentin 300mg possibly 90, lorazepam 1mg possibly 28, amitriptyline 25 mg possibly 30, Levemir unknown amount and Humalog unknown amount. She apparently was attempting to ingest Plavix as well but family knocked it from her hand and called EMS. Pt currently intubated and no history as to the reason for the OD could be obtained from the patient. Source: old records Exam Limitations: clinical condition Date seen by provider: Apr 12, 2018 Time Seen by Provider: 10:10 Attending Physician Hang Felipe Holly R MD Consult Date of Admission Apr 12, 2018 at 05:08 Home Medications Home Medications Reviewed patient Home Medication Reconciliation performed by pharmacy medication reconciliations c2 tactical analysis technician and/or nursing. Patients Allergies have been reviewed. Allergies Coded Allergies: coconut (Verified Allergy, Severe, anaphylactic reaction, 07/11/17) ketorolac (Unverified Allergy, Unknown, 08/19/15) SPT-[id number]-Rictyr Hx Patient Social History Alcohol Use: Denies Use Recreational Drug Use: No Drug of Choice: UNK Smoking Status: Unknown if Ever Smoked Type Used: Cigarettes 2nd Hand Smoke Exposure: Yes Recent Foreign Travel: No Contact w/other who traveled: No Recent Hopitalizations: Yes (cardiac stents) Recent Infectious Disease Expo: No Physical Abuse Screen: No (unknown) Sexual Abuse: No (unknown) Immunizations Up To Date Tetanus Booster (TDap): Unknown Date of Pneumonia Vaccine: September 09, 2016 Past Medical History PMHx: Diabetes type 2, Uncontrolled HTN HLD CAD with stent placement x1, 2017 Surgical: x 3 I&D of left breast cyst Back surgery - discectomy Family Medical History Significant Family History: Heart Disease, Diabetes, Other Conditions/Hx Family History: Cardiovascular disease 19 FATHER, Onset:Unknown 19 MOTHER, Onset:Unknown Diabetes mellitus 19 FATHER 19 MOTHER Review of Systems ([facility]) Constitutional: other (unable to obtain) Reviewed Test Results Reviewed Test Results Lab Laboratory Tests 04/12/18 04:00: White Blood Count 6.8, Red Blood Count 4.73, Hemoglobin 12.6, Hematocrit 36, Mean Corpuscular Volume 76L, Mean Corpuscular Hemoglobin 27, Mean Corpuscular Hemoglobin Concent 35, Red Cell Distribution Width 14.9H, Platelet Count 406H, Mean Platelet Volume 8.9, Neutrophils (%) (Auto) 62, Lymphocytes (%) (Auto) 32, Monocytes (%) (Auto) 3, Eosinophils (%) (Auto) 3, Basophils (%) (Auto) 0, Neutrophils # (Auto) 4.2, Lymphocytes # (Auto) 2.2, Monocytes # (Auto) 0.2, Eosinophils # (Auto) 0.2, Basophils # (Auto) 0.0, Sodium Level 132L, Potassium Level 3.3L, Chloride Level 99, Carbon Dioxide Level 12L, Anion Gap 21H, Blood Urea Nitrogen 6L, Creatinine 0.80, Estimat Glomerular Filtration Rate > 60, BUN/ Creatinine Ratio 8, Glucose Level 371H, Glucometer 369H, Calcium Level 9.4, Corrected Calcium 9.3, Phosphorus Level 2.4, Magnesium Level 3.2H, Total Bilirubin < 0.5, Aspartate Amino Transf (AST/SGOT) 16, Alanine Aminotransferase (ALT/SGPT) 16, Alkaline Phosphatase 171H, Total Creatine Kinase 31, Troponin I < 0.30, Total Protein 10.5H, Albumin 4.1, Triglycerides Level 2898H, Salicylates Level < 5.0L, Acetaminophen Level < 10L, Serum Alcohol < 10 04/12/18 04:25: Urine Color YELLOW, Urine Clarity SLIGHTLY CLOUDY, Urine pH 6, Urine Specific Buhl 1.015L, Urine Protein 3+H, Urine Glucose (UA) 4+H, Urine Ketones NEGATIVE, Urine Nitrite NEGATIVE, Urine Bilirubin NEGATIVE, Urine Urobilinogen NORMAL, Urine Leukocyte Esterase NEGATIVE, Urine RBC (Auto) 1+H, Urine RBC 2-5H , Urine WBC NONE, Urine Squamous Epithelial Cells 0-2, Urine Crystals NONE, Urine Bacteria NEGATIVE, Urine Casts NONE, Urine Mucus SMALLH, Urine Culture Indicated NO, Urine Test NEGATIVE, Urine Opiates Screen NEGATIVE, Urine Oxycodone Screen NEGATIVE, Urine Methadone Screen NEGATIVE, Urine Propoxyphene Screen NEGATIVE, Urine Barbiturates Screen NEGATIVE, Ur Tricyclic Antidepressants Screen POSITIVEH, Urine Phencyclidine Screen NEGATIVE, Urine Amphetamines Screen NEGATIVE, Urine Methamphetamines Screen NEGATIVE, Urine Benzodiazepines Screen POSITIVEH, Urine Cocaine Screen NEGATIVE, Urine Cannabinoids Screen NEGATIVE 04/12/18 04:29: Glucometer 280H 04/12/18 05:35: Blood Gas Puncture Site RT RADIAL, Blood Gas Patient Temperature 98.2, Arterial Blood pH 7.34*L, Arterial Blood Partial Pressure CO2 43, Arterial Blood Partial Pressure O2 108H, Arterial Blood HCO3 23, Arterial Blood Total CO2 24.0, Arterial Blood Oxygen Saturation 96, Arterial Blood Base Excess -2.2, Joe Test YES-POS, Blood Gas Ventilator Setting YES, Blood Gas Inspired Oxygen 30% 04/12/18 05:38: Glucometer 267H 04/12/18 06:34: Glucometer 228H 04/12/18 08:10: Glucometer 206H 04/12/18 09:01: Glucometer 215H 04/12/18 10:08: Glucometer 223H 04/12/18 11:24: Glucometer 245H 04/12/18 12:19: Glucometer 245H 04/12/18 13:19: Glucometer 236H 04/12/18 14:00: White Blood Count 8.4, Red Blood Count 4.26L, Hemoglobin 11.1L, Hematocrit 32L, Mean Corpuscular Volume 76L, Mean Corpuscular Hemoglobin 26, Mean Corpuscular Hemoglobin Concent 34, Red Cell Distribution Width 15.1H, Platelet Count 346, Mean Platelet Volume 8.8, Neutrophils (%) (Auto) 68, Lymphocytes (%) (Auto) 23, Monocytes (%) (Auto) 6, Eosinophils (%) (Auto) 2, Basophils (%) (Auto) 0, Neutrophils # (Auto) 5.8, Lymphocytes # (Auto) 2.0, Monocytes # (Auto) 0.5, Eosinophils # (Auto) 0.2, Basophils # (Auto) 0.0, Sodium Level 135, Potassium Level 3.8, Chloride Level 103, Carbon Dioxide Level 20L, Anion Gap 12, Blood Urea Nitrogen 3L, Creatinine 0.56L, Estimat Glomerular Filtration Rate > 60, BUN /Creatinine Ratio 5, Glucose Level 233H, Calcium Level 7.6L, Corrected Calcium 8.3L, Phosphorus Level 1.9L, Magnesium Level 2.1, Total Bilirubin 0.4, Aspartate Amino Transf (AST/SGOT) 15, Alanine Aminotransferase (ALT/SGPT) 12, Alkaline Phosphatase 132, Total Protein 7.3, Albumin 3.1L 04/12/18 16:11: Glucometer 264H Physical Exam-([facility]) Physical Exam Vital Signs VS - Last 72 Hours, by Label 04/12/18 04/12/18 04/12/18 04/12/18 03:51 04:04 04:10 04:41 Temp 97.3 97.3 97.3 Pulse 134 134 129 Resp 18 18 19 B/P (MAP) 130/101 (111) 130/101 Pulse Ox 99 99 95 O2 Delivery Room Air FiO2 30 04/12/18 04/12/18 04/12/18 04/12/18 05:10 05:30 05:36 05:37 Temp 98.1 98.2 Pulse 126 130 124 Resp 13 23 B/P (MAP) 140/107 (118) 145/117 (126) Pulse Ox 98 98 O2 Delivery Mechanical Ventilator Mechanical Ventilator Mechanical Ventilator O2 Flow Rate 30.00 FiO2 30 04/12/18 04/12/18 04/12/18 04/12/18 05:45 05:54 06:00 06:15 Pulse 135 125 126 Resp 22 18 18 B/P (MAP) 159/130 (140) 145/117 115/79 (91) 121/83 (96) Pulse Ox 98 98 98 O2 Delivery Mechanical Ventilator Mechanical Ventilator Mechanical Ventilator O2 Flow Rate 30.00 30.00 30.00 04/12/18 04/12/18 04/12/18 04/12/18 06:33 07:00 07:00 07:22 Pulse 126 129 129 130 Resp 19 19 B/P (MAP) 123/86 (98) 127/88 Pulse Ox 97 99 O2 Delivery Mechanical Ventilator O2 Flow Rate 30.00 FiO2 30 04/12/18 04/12/18 04/12/18 04/12/18 07:46 08:00 08:11 08:56 Temp 97.8 Pulse 131 128 Resp 18 B/P (MAP) 120/83 (95) 112/78 Pulse Ox 95 O2 Delivery Mechanical Ventilator Mechanical Ventilator O2 Flow Rate 21.00 FiO2 21 04/12/18 04/12/18 04/12/18 04/12/18 08:59 09:00 09:46 10:00 Pulse 133 128 129 131 Resp 19 18 19 18 B/P (MAP) 105/64 (78) 113/73 (86) Pulse Ox 94 95 97 97 O2 Delivery Mechanical Ventilator Mechanical Ventilator O2 Flow Rate 21.00 21.00 FiO2 21 21 04/12/18 04/12/18 04/12/18 04/12/18 10:29 11:00 11:18 11:47 Temp 97.8 Pulse 131 130 131 Resp 17 21 B/P (MAP) 109/71 115/79 (91) Pulse Ox 98 97 O2 Delivery Mechanical Ventilator O2 Flow Rate 21.00 FiO2 21 04/12/18 04/12/18 04/12/18 04/12/18 12:00 12:07 12:39 13:00 Pulse 131 126 129 Resp 19 21 B/P (MAP) 117/81 (93) 120/83 118/75 (89) Pulse Ox 97 97 O2 Delivery Mechanical Ventilator Mechanical Ventilator Mechanical Ventilator O2 Flow Rate 21.00 21.00 FiO2 21 04/12/18 04/12/18 04/12/18 04/12/18 13:08 13:44 14:00 14:41 Pulse 129 129 133 133 Resp 20 21 B/P (MAP) 118/75 (89) 116/73 Pulse Ox 97 97 O2 Delivery Mechanical Ventilator O2 Flow Rate 21.00 FiO2 21 04/12/18 04/12/18 04/12/18 04/12/18 15:00 15:54 15:55 16:00 Temp 98.4 Pulse 134 135 Resp 21 12 B/P (MAP) 123/81 (95) 134/93 (107) Pulse Ox 97 96 O2 Delivery Mechanical Ventilator Mechanical Ventilator Mechanical Ventilator O2 Flow Rate 21.00 21.00 FiO2 21 04/12/18 04/12/18 04/12/18 16:02 16:33 17:00 Pulse 134 130 129 Resp 21 22 B/P (MAP) 111/68 110/68 (82) Pulse Ox 96 96 O2 Delivery Mechanical Ventilator O2 Flow Rate 21.00 FiO2 21 Capillary Refill : Less Than 3 Seconds General Appearance: other (sedated on the vent) Respiratory: lungs clear, normal breath sounds, no respiratory distress, no accessory muscle use Cardiovascular: regular rate, rhythm, no edema Assessment/Plan Assessment/Plan Admission Status: Inpatient Order (span 2 midnights) Reason for Inpatient Admission: ICU admission, intubated requiring mechanical ventilation. (1) Suicide attempt by multiple drug overdose Status: Acute Assessment & Plan: Pt admitted 04/12/18 to the ICU - intubated in the ER for airway protection - Dr. Arroyo managing vent. Qualifiers: Qualified Codes: T50.902A - Poisoning by unspecified drugs, medicaments and biological substances, intentional self-harm, initial encounter (2) Intentional amitriptyline overdose Status: Acute Assessment & Plan: - metabolic acidosis - on sodium bicarb drip Qualifiers: Qualified Codes: T43.012A - Poisoning by tricyclic antidepressants, intentional self-harm, initial encounter (3) Benzodiazepine (tranquilizer) overdose Status: Acute Qualifiers: Qualified Codes: T42.4X2A - Poisoning by benzodiazepines, intentional self- harm, initial encounter (4) Insulin overdose Status: Acute Assessment & Plan: Blood sugars running in the 200s Qualifiers: Qualified Codes: T38.3X2A - Poisoning by insulin and oral hypoglycemic [ antidiabetic] drugs, intentional self-harm, initial encounter (5) At high risk for airway occlusion Status: Acute (6) Diabetes mellitus with neurologic complication, with long-term current use of insulin Status: Chronic Qualifiers: Qualified Codes: E11.42 - Type 2 diabetes mellitus with diabetic polyneuropathy; Z79.4 - [facility] (current) use of insulin (7) Metabolic acidosis due to ingestion of drugs or chemicals Status: Acute Assessment & Plan: 04/12/18 - bicarb drip due to TCA OD Clinical Quality Measures DVT/VTE Risk/Contraindication: Risk Factor Score Per Nursin RFS Level Per Nursing on Admit: 2=Moderate HANG FELIPE DO Apr 12, 2018 14:49
--- NOTE | 2018-04-12 14:53 | NUR ---
LAB RESULTS GIVEN TO DR HUITRON.
--- NOTE | 2018-04-12 17:15 | NUR ---
This RN to ICU for PICC line placement. Unable to reach next of kin for consent at this time.
--- NOTE | 2018-04-12 17:24 | NUR ---
UNABLE TO CONTACT NEXT OF KIN FOR PICC LINE CONSENT AT THIS TIME.
[2018-04-13] VITALS (27 sets, daily range): BP systolic 102–126; BP diastolic 64–94
[2018-04-13] MEDS: RT-ALBUTEROL/IPRATROPIUM 3 ML (DUONEB) VIAL INH SCH ×6 (01:19→22:02)
[2018-04-13] MEDS: D5 NS 1000 ML IV SOLUTION 1,000 ML IV SCH (01:48)
[2018-04-13] MEDS: SODIUM BICARBONATE 8.4% VIAL 150 MEQ in D5W 1000 ML IV SOLUTION 1,000 ML IV SCH (02:00)
[2018-04-13] MEDS: PROPOFOL DRIP (ICU) 100 ML IV SCH (02:00)
[2018-04-13 03:07] LABS: ABG BASE EXCESS 4.7 MMOL/L (-2.5-2.5); ABG OXYGEN SATURATION 96 % (94-100); ABG PCO2 41 MMHG (35-45); ABG PH 7.46 (7.37-7.43); ABG PO2 90 MMHG (79-93); ABG TCO2 29.7 MMOL/L (21.0-31.0)
[2018-04-13 03:08] LABS: ALLENS TEST YES-POS; INSPIRED O2 21%; PATIENT TEMP 98.6; VENTILATOR YES
[2018-04-13 04:17] LABS: BASOPHILS % (AUTO) 0 % (0-10); EOSINOPHILS # (AUTO) 0.1 10^3/uL (0.0-0.3); EOSINOPHILS % (AUTO) 1 % (0-10); HEMATOCRIT 31 % (35-52); HEMOGLOBIN 10.4 G/DL (11.5-16.0); LYMPHOCYTES # (AUTO) 1.8 X 10^3 (1.0-4.0); LYMPHOCYTES % (AUTO) 17 % (12-44); MEAN CORPUSCULAR HEMOGLOBIN 26 PG (25-34); MEAN CORPUSCULAR HGB CONC 34 G/DL (32-36); MEAN CORPUSCULAR VOLUME 77 FL (80-99); MEAN PLATELET VOLUME 8.8 FL (7.4-10.4); MONOCYTES # (AUTO) 0.6 X 10^3 (0.0-1.0); MONOCYTES % (AUTO) 6 % (0-12); NEUTROPHILS # (AUTO) 7.7 X 10^3 (1.8-7.8); NEUTROPHILS % (AUTO) 76 % (42-75); PLATELET COUNT 336 10^3/uL (130-400); RED BLOOD COUNT 4.04 10^6/uL (4.35-5.85); RED CELL DISTRIBUTION WIDTH 15.6 % (10.0-14.5); WHITE BLOOD COUNT 10.2 10^3/uL (4.3-11.0)
[2018-04-13 04:46] LABS: ALANINE AMINOTRANSFERASE 11 U/L (0-55); ALKALINE PHOSPHATASE 129 U/L (40-136); BILIRUBIN,TOTAL 0.3 MG/DL (0.1-1.0); BUN/CREATININE RATIO 5; CARBON DIOXIDE 19 MMOL/L (21-32); CHLORIDE 98 MMOL/L (98-107); CREATININE SERUM 0.63 MG/DL (0.60-1.30); GFR ESTIMATED > 60; GLUCOSE 296 MG/DL (70-105); MAGNESIUM 1.9 MG/DL (1.8-2.4); PHOSPHORUS 2.5 MG/DL (2.3-4.7); POTASSIUM 3.3 MMOL/L (3.6-5.0); SODIUM 135 MMOL/L (135-145)
[2018-04-13] MEDS: POTASSIUM CL 10MEQ/50ML IVPB 50 ML IV SCH ×9 (04:58→13:16)
[2018-04-13] MEDS ORDERED: inSUlin DETERMIR 1 UNIT/0.01 ML (LEVEMIR) CHARGE PER UNIT SQ ONE (05:30)
--- NOTE | 2018-04-13 05:35 | Pulmonary Progress Note ---
Subjective Time Seen by a Provider: 05:39 Subjective/Events-last exam Pt is sedated on vent Sepsis Event Evaluation Height, Weight, BMI Height: 5'2.00" Weight: 158lbs. 5.0oz. [id number]; 29.0 BMI Method:Stated Exam Exam Vital Signs Date Time Temp Pulse Resp B/P (MAP) Pulse Ox O2 Delivery O2 Flow Rate FiO2 04/13/18 04:00 134 23 110/70 (83) 97 Mechanical Ventilator 21.00 04/13/18 04:00 Mechanical Ventilator 21 04/13/18 03:56 135 22 97 21 04/13/18 03:00 137 22 114/73 (87) 97 Mechanical Ventilator 21.00 04/13/18 02:00 137 21 114/64 (81) 97 Mechanical Ventilator 21.00 04/13/18 01:20 134 23 96 21 04/13/18 01:00 135 04/13/18 01:00 135 14 122/67 (85) 98 Mechanical Ventilator 21.00 04/13/18 00:00 Mechanical Ventilator 21 04/13/18 00:00 135 37 117/65 (82) 97 Mechanical Ventilator 21.00 04/12/18 23:45 135 22 96 21 04/12/18 23:00 135 20 119/69 (86) 97 Mechanical Ventilator 21.00 04/12/18 22:55 98.4 133 24 118/73 94 Mechanical Ventilator 21.00 04/12/18 22:00 134 15 118/72 (87) 97 Mechanical Ventilator 21.00 04/12/18 21:19 133 24 94 21 04/12/18 21:00 133 20 118/73 (88) 96 Mechanical Ventilator 21.00 04/12/18 20:00 Mechanical Ventilator 21 04/12/18 20:00 133 18 110/67 (81) 96 Mechanical Ventilator 21.00 04/12/18 19:47 98.4 Mechanical Ventilator 21.00 04/12/18 19:00 133 21 121/77 (92) 97 Mechanical Ventilator 21.00 04/12/18 19:00 133 18 18:37 130 120/75 04/12/18 18:20 130 20 97 21 04/12/18 18:00 130 20 111/64 (80) 97 Mechanical Ventilator 21.00 04/12/18 17:00 129 22 110/68 (82) 96 Mechanical Ventilator 21.00 18 16:33 130 111/68 04/12/18 16:02 134 21 96 21 04/12/18 16:00 135 12 134/93 (107) 96 Mechanical Ventilator 21.00 04/12/18 15:55 98.4 04/12/18 15:54 Mechanical Ventilator 21 04/12/18 15:00 134 21 123/81 (95) 97 Mechanical Ventilator 21.00 04/12/18 14:41 133 116/73 04/12/18 14:00 133 21 118/75 (89) 97 Mechanical Ventilator 21.00 04/12/18 13:44 129 20 97 21 04/12/18 13:08 129 04/12/18 13:00 129 21 118/75 (89) 97 Mechanical Ventilator 21.00 04/12/18 12:39 126 120/83 04/12/18 12:07 Mechanical Ventilator 21 04/12/18 12:00 131 19 117/81 (93) 97 Mechanical Ventilator 21.00 04/12/18 11:47 97.8 04/12/18 11:18 131 21 97 21 04/12/18 11:00 130 17 115/79 (91) 98 Mechanical Ventilator 21.00 04/12/18 10:29 131 109/71 04/12/18 10:00 131 18 113/73 (86) 97 Mechanical Ventilator 21.00 04/12/18 09:46 129 19 97 21 04/12/18 09:00 128 18 105/64 (78) 95 Mechanical Ventilator 21.00 04/12/18 08:59 133 19 94 21 04/12/18 08:56 128 112/78 04/12/18 08:11 97.8 04/12/18 08:00 131 18 120/83 (95) 95 Mechanical Ventilator 21.00 04/12/18 07:46 Mechanical Ventilator 21 04/12/18 07:22 130 127/88 04/12/18 07:00 129 04/12/18 07:00 129 19 123/86 (98) 99 Mechanical Ventilator 30.00 04/12/18 06:33 126 19 97 30 04/12/18 06:15 126 18 121/83 (96) 98 Mechanical Ventilator 30.00 04/12/18 06:00 125 18 115/79 (91) 98 Mechanical Ventilator 30.00 04/12/18 05:54 145/117 04/12/18 05:45 135 22 159/130 (140) 98 Mechanical Ventilator 30.00 04/12/18 05:37 98.2 124 23 145/117 (126) 98 Mechanical Ventilator 30.00 04/12/18 05:36 130 I & O 04/13/18 07:00 Intake Total 2400 ml Output Total 2675 ml Balance -275 ml Height & Weight Height: 5'2.00" Weight: 158lbs. 5.0oz. 71.063064pl; 29.0 BMI Method:Stated General Appearance: Other (sedated on vent ) HEENT: PERRL/EOMI, Pharynx Normal Neck: Supple Respiratory: Chest Non Tender, Lungs Clear, Normal Breath Sounds, No Accessory Muscle Use, No Respiratory Distress Cardiovascular: Regular Rate, Rhythm, No Edema, No Gallop Capillary Refill: Less Than 3 Seconds Peripheral Pulses: 2+ Radial Pulses (R), 2+ Radial Pulses (L) Gastrointestinal: normal bowel sounds, non tender, soft Extremity: Normal Capillary Refill, Normal Inspection Neurologic/Psychiatric: Other (sedated on vent) Skin: Normal Color, Warm/Dry Lymphatic: No Adenopathy Results Lab Laboratory Tests 04/12/18 04:00 04/12/18 14:00 04/13/18 03:42 Assessment/Plan Assessment/Plan Acute respiratory failure for airway protection -Continue ventilator care -D/C propofol -Start vent weaning Suicidal attempt with multisubstance OD including insulin, amitriptyline -Poison control contacted -D/C Bicarb gtt -Change IVF to NS -Accu checks Q 1hr Sinus tach -GIve a 1 liter NS bolus Hyponatremia -Monitor -Continue NS Hyperglycemia -Stop D5 -start Lavemir 10 units now then QHS -Start SSI Hypokalemia -replace and recheck -Check mg, and phos Metabolic acidosis - improved HX of CAD with stent placement Tobacco use Hx of IDDM Depression TELMA HUITRON DO Apr 13, 2018 05:35
[2018-04-13] MEDS ORDERED: NS IV 1000 ML 1,000 ML IV SCH (05:45)
[2018-04-13] MEDS ORDERED: MAGNESIUM 1 GM/100 ML IVPB 100 ML IV SCH (06:00)
[2018-04-13] MEDS ORDERED: KCL 20 MEQ TAB (K-DUR) PO SCH (06:00)
[2018-04-13] MEDS ORDERED: PROPOFOL DRIP (ICU) 100 ML IV ONE (07:35)
[2018-04-13] MEDS: NS IV 1000 ML 1,000 ML IV SCH ×3 (07:40→16:11)
--- NOTE | 2018-04-13 07:46 | Diagnostic Imaging Report ---
Indication: Overdose Portable chest shows normal heart size and vascularity. The lungs are clear. There is no effusion or pneumothorax. The ET tube and OG tube remain in place. These findings are similar to the prior study from 04/12/2018. Impression: Stable chest. Dictated by: Dictated on workstation # [id number]
[2018-04-13] MEDS: FAMOTIDINE 20MG/2ML IV (PEPCID) IVP SCH ×2 (08:04→21:49)
[2018-04-13] MEDS: inSUlin ASPART (NovoLOG) 1 UNIT/0.01 ML (CHARGE PER UNIT) SC SCH ×4 (08:04→21:50)
[2018-04-13] MEDS: CHLORHEXIDINE 0.12% SOLN 15 ML (PERIDEX) UDC PO SCH ×2 (13:06→21:50)
--- NOTE | 2018-04-13 13:47 | Progress Note (SOAP) ---
Subjective Subjective/Events-last exam Pt continues to be sedated on the vent. Review of Systems Date Seen by Provider: Apr 13, 2018 Time Seen by Provider: 07:50 Objective Exam Last Set of Vital Signs Vital Signs Date Time Temp Pulse Resp B/P (MAP) Pulse Ox O2 Delivery O2 Flow Rate FiO2 04/13/18 12:00 98.9 04/13/18 12:00 126 20 125/84 (98) 94 Room Air 04/13/18 11:00 04/13/18 09:43 21 Capillary Refill : Less Than 3 Seconds I&O Intake and Output 04/13/18 00:00 Intake Total 4500 ml Output Total 2950 ml Balance 1550 ml Intake Oral 0 ml IV Total 4500 ml Output Urine Total 2950 ml Daily Weight Change No General: Other (sedated) Lungs: Clear to Auscultation Heart: Regular Rate Results/Procedures Lab Laboratory Tests 04/12/18 14:00: White Blood Count 8.4, Red Blood Count 4.26L, Hemoglobin 11.1L, Hematocrit 32L, Mean Corpuscular Volume 76L, Mean Corpuscular Hemoglobin 26, Mean Corpuscular Hemoglobin Concent 34, Red Cell Distribution Width 15.1H, Platelet Count 346, Mean Platelet Volume 8.8, Neutrophils (%) (Auto) 68, Lymphocytes (%) (Auto) 23, Monocytes (%) (Auto) 6, Eosinophils (%) (Auto) 2, Basophils (%) (Auto) 0, Neutrophils # (Auto) 5.8, Lymphocytes # (Auto) 2.0, Monocytes # (Auto) 0.5, Eosinophils # (Auto) 0.2, Basophils # (Auto) 0.0, Sodium Level 135, Potassium Level 3.8, Chloride Level 103, Carbon Dioxide Level 20L, Anion Gap 12, Blood Urea Nitrogen 3L, Creatinine 0.56L, Estimat Glomerular Filtration Rate > 60, BUN /Creatinine Ratio 5, Glucose Level 233H, Calcium Level 7.6L, Corrected Calcium 8.3L, Phosphorus Level 1.9L, Magnesium Level 2.1, Total Bilirubin 0.4, Aspartate Amino Transf (AST/SGOT) 15, Alanine Aminotransferase (ALT/SGPT) 12, Alkaline Phosphatase 132, Total Protein 7.3, Albumin 3.1L 04/12/18 16:11: Glucometer 264H 04/12/18 21:16: Glucometer 257H 04/13/18 03:05: Blood Gas Puncture Site RT RADIAL, Blood Gas Patient Temperature 98.6, Arterial Blood pH 7.46H, Arterial Blood Partial Pressure CO2 41, Arterial Blood Partial Pressure O2 90, Arterial Blood HCO3 29H, Arterial Blood Total CO2 29.7, Arterial Blood Oxygen Saturation 96, Arterial Blood Base Excess 4.7H, Joe Test YES-POS, Blood Gas Ventilator Setting YES, Blood Gas Inspired Oxygen 21% 04/13/18 03:42: White Blood Count 10.2, Red Blood Count 4.04L, Hemoglobin 10.4L, Hematocrit 31L , Mean Corpuscular Volume 77L, Mean Corpuscular Hemoglobin 26, Mean Corpuscular Hemoglobin Concent 34, Red Cell Distribution Width 15.6H, Platelet Count 336, Mean Platelet Volume 8.8, Neutrophils (%) (Auto) 76H, Lymphocytes (%) (Auto) 17 , Monocytes (%) (Auto) 6, Eosinophils (%) (Auto) 1, Basophils (%) (Auto) 0, Neutrophils # (Auto) 7.7, Lymphocytes # (Auto) 1.8, Monocytes # (Auto) 0.6, Eosinophils # (Auto) 0.1, Basophils # (Auto) 0.0, Sodium Level 135, Potassium Level 3.3L, Chloride Level 98, Carbon Dioxide Level 19L, Anion Gap 18H, Blood Urea Nitrogen 3L, Creatinine 0.63, Estimat Glomerular Filtration Rate > 60, BUN/ Creatinine Ratio 5, Glucose Level 296H, Calcium Level 8.0L, Corrected Calcium 8.8, Phosphorus Level 2.5, Magnesium Level 1.9, Total Bilirubin 0.3, Aspartate Amino Transf (AST/SGOT) 16, Alanine Aminotransferase (ALT/SGPT) 11, Alkaline Phosphatase 129, Total Protein 7.0, Albumin 3.0L 04/13/18 08:01: Glucometer 282H 04/13/18 12:55: Glucometer 225H Microbiology 04/12/18 Gram Stain - Final, Resulted 04/12/18 Sputum Culture - Preliminary, Resulted Usual oral drea Strep agalactiae Group B Assessment/Plan Assessment/Plan (1) Suicide attempt by multiple drug overdose Status: Acute Assessment & Plan: Pt admitted 04/12/18 to the ICU - intubated in the ER for airway protection - Dr. Arroyo managing vent. Qualifiers: Qualified Codes: T50.902A - Poisoning by unspecified drugs, medicaments and biological substances, intentional self-harm, initial encounter (2) Intentional amitriptyline overdose Status: Acute Assessment & Plan: - metabolic acidosis - on sodium bicarb drip 04/13 - CO2 19, AG was closed but then increased to 18 Qualifiers: Qualified Codes: T43.012A - Poisoning by tricyclic antidepressants, intentional self-harm, initial encounter (3) Benzodiazepine (tranquilizer) overdose Status: Acute Qualifiers: Qualified Codes: T42.4X2A - Poisoning by benzodiazepines, intentional self- harm, initial encounter (4) Insulin overdose Status: Acute Assessment & Plan: Blood sugars running in the 200s Qualifiers: Qualified Codes: T38.3X2A - Poisoning by insulin and oral hypoglycemic [ antidiabetic] drugs, intentional self-harm, initial encounter (5) At high risk for airway occlusion Status: Acute Assessment & Plan: - intubated for airway protection (6) Diabetes mellitus with neurologic complication, with long-term current use of insulin Status: Chronic Assessment & Plan: - BS running 250 on Levemir 10U and SSI 04/13 - increase Levemir to 20U Qualifiers: Qualified Codes: E11.42 - Type 2 diabetes mellitus with diabetic polyneuropathy; Z79.4 - [facility] (current) use of insulin (7) Metabolic acidosis due to ingestion of drugs or chemicals Status: Acute Assessment & Plan: 04/12/18 - bicarb drip due to TCA OD Clinical Quality Measures DVT/VTE Risk/Contraindication: Risk Factor Score Per Nursin RFS Level Per Nursing on Admit: 2=Moderate HANG FELIPE DO Apr 13, 2018 13:47
--- NOTE | 2018-04-13 17:25 | NUR ---
Spoke with pt regarding suicidal ideations. Pt denies thoughts of harming self. Discussed no-harm contract et pt verbalizes understanding. Pt agreeable with no-harm contract et contract signed
[2018-04-13] MEDS ORDERED: inSUlin DETERMIR 1 UNIT/0.01 ML (LEVEMIR) CHARGE PER UNIT SQ SCH (21:00)
[2018-04-14] VITALS (10 sets, daily range): BP systolic 121–130; BP diastolic 78–92
[2018-04-14] MEDS: RT-ALBUTEROL/IPRATROPIUM 3 ML (DUONEB) VIAL INH SCH ×3 (02:03→10:49)
[2018-04-14] MEDS: NS IV 1000 ML 1,000 ML IV SCH (03:24)
[2018-04-14 03:44] LABS: BASOPHILS % (AUTO) 0 % (0-10); EOSINOPHILS # (AUTO) 0.2 10^3/uL (0.0-0.3); EOSINOPHILS % (AUTO) 3 % (0-10); HEMATOCRIT 31 % (35-52); LYMPHOCYTES # (AUTO) 1.7 X 10^3 (1.0-4.0); LYMPHOCYTES % (AUTO) 22 % (12-44); MEAN CORPUSCULAR HEMOGLOBIN 25 PG (25-34); MEAN CORPUSCULAR HGB CONC 32 G/DL (32-36); MEAN CORPUSCULAR VOLUME 78 FL (80-99); MEAN PLATELET VOLUME 8.9 FL (7.4-10.4); MONOCYTES # (AUTO) 0.5 X 10^3 (0.0-1.0); MONOCYTES % (AUTO) 6 % (0-12); NEUTROPHILS # (AUTO) 5.4 X 10^3 (1.8-7.8); NEUTROPHILS % (AUTO) 69 % (42-75); PLATELET COUNT 307 10^3/uL (130-400); RED BLOOD COUNT 3.96 10^6/uL (4.35-5.85); RED CELL DISTRIBUTION WIDTH 15.9 % (10.0-14.5); WHITE BLOOD COUNT 7.8 10^3/uL (4.3-11.0)
[2018-04-14 04:05] LABS: BUN/CREATININE RATIO 4; CALCIUM 8.4 MG/DL (8.5-10.1); CARBON DIOXIDE 18 MMOL/L (21-32); CHLORIDE 107 MMOL/L (98-107); CREATININE SERUM 0.53 MG/DL (0.60-1.30); GFR ESTIMATED > 60; GLUCOSE 206 MG/DL (70-105); MAGNESIUM 1.8 MG/DL (1.8-2.4); PHOSPHORUS 3.1 MG/DL (2.3-4.7); POTASSIUM 3.6 MMOL/L (3.6-5.0); SODIUM 137 MMOL/L (135-145)
--- NOTE | 2018-04-14 05:43 | Pulmonary Progress Note ---
Subjective Time Seen by a Provider: 05:45 Subjective/Events-last exam No complications noted. Pt is doing well off vent. Sepsis Event Evaluation Height, Weight, BMI Height: 5'2.00" Weight: 168lbs. 5.0oz. 76.501333wa; 29.0 BMI Method:Stated Exam Exam Vital Signs Date Time Temp Pulse Resp B/P (MAP) Pulse Ox O2 Delivery O2 Flow Rate FiO2 04/14/18 05:00 113 25 121/83 (96) 98 Room Air 04/14/18 04:00 114 19 122/78 (93) 99 Room Air 04/14/18 04:00 Room Air 04/14/18 03:00 117 19 123/91 (102) 99 Room Air 04/14/18 02:03 96 Room Air 04/14/18 02:00 115 14 123/91 (102) 97 Room Air 04/14/18 01:00 113 18 127/86 (100) 100 Room Air 04/14/18 01:00 114 04/14/18 00:00 114 22 123/87 (99) 100 Room Air 04/14/18 00:00 Room Air 04/13/18 23:00 116 24 113/69 (84) 97 Room Air 04/13/18 22:02 96 Room Air 04/13/18 22:00 112 20 116/78 (91) 96 Room Air 04/13/18 21:00 115 24 116/70 (85) 95 Room Air 04/13/18 20:00 Room Air 04/13/18 20:00 117 21 123/71 (88) 95 Room Air 04/13/18 19:16 96 Room Air 04/13/18 19:00 118 21 115/71 (86) 96 Room Air 04/13/18 19:00 120 04/13/18 18:00 121 30 112/94 (100) 98 Room Air 04/13/18 17:00 122 15 123/78 (93) 94 Room Air 04/13/18 16:00 Room Air 04/13/18 16:00 98.1 120 42 118/77 (91) 97 Room Air 04/13/18 15:00 122 41 125/93 (104) 92 Room Air 04/13/18 14:00 121 15 124/73 (90) 100 Room Air 04/13/18 13:58 96 Room Air 04/13/18 13:19 125 12/29/18 13:00 124 23 120/93 (102) 93 Room Air 04/13/18 12:00 98.9 04/13/18 12:00 126 20 125/84 (98) 94 Room Air 04/13/18 12:00 Room Air 04/13/18 11:00 128 24 118/76 (90) 95 Room Air 04/13/18 10:00 126 25 120/85 (97) 99 Nasal Cannula 2.00 04/13/18 09:43 128 21 97 21 04/13/18 09:00 125 24 113/68 (83) 96 Mechanical Ventilator 21.00 04/13/18 08:04 129 20 96 21 04/13/18 08:00 Mechanical Ventilator 21 04/13/18 08:00 124 19 102/71 (81) 96 Mechanical Ventilator 21.00 04/13/18 07:59 100.3 04/13/18 07:40 98.4 126 21 108/69 96 Mechanical Ventilator 21.00 04/13/18 07:06 122 04/13/18 07:00 124 17 118/78 (91) 97 Mechanical Ventilator 21.00 04/13/18 06:04 126 21 96 21 04/13/18 06:00 126 33 108/69 (82) 97 Mechanical Ventilator 21.00 I & O 04/14/18 07:00 Intake Total 2850 ml Output Total 3550 ml Balance -700 ml Height & Weight Height: 5'2.00" Weight: 168lbs. 5.0oz. 76.033624vv; 29.0 BMI Method:Stated General Appearance: No Apparent Distress, WD/WN HEENT: PERRL/EOMI, Pharynx Normal Neck: Supple Respiratory: Chest Non Tender, Lungs Clear, Normal Breath Sounds, No Accessory Muscle Use, No Respiratory Distress Cardiovascular: Regular Rate, Rhythm, No Edema, No Gallop Capillary Refill: Less Than 3 Seconds Peripheral Pulses: 2+ Radial Pulses (R), 2+ Radial Pulses (L) Gastrointestinal: normal bowel sounds, non tender, soft Extremity: Normal Capillary Refill, Normal Inspection Neurologic/Psychiatric: Alert, Oriented x3, Other (sedated on vent) Skin: Normal Color, Warm/Dry Lymphatic: No Adenopathy Results Lab Laboratory Tests 04/12/18 14:00 04/13/18 03:42 04/14/18 03:05 Assessment/Plan Assessment/Plan Acute respiratory failure for airway protection -Pt is doing well off vent ' -Pt is on RA oxygen Suicidal attempt with multisubstance OD including insulin, amitriptyline Sinus tach Hyponatremia -Monitor -Continue NS Hypokalemia -replace and recheck -Check mg, and phos Metabolic acidosis - improved HX of CAD with stent placement Tobacco use Hx of IDDM Depression Pt is doing well off vent. I am going to sign off and send pt to 4th floor with sitter. Psych eval is pending. TELMA HUITRON DO Apr 14, 2018 05:43
--- NOTE | 2018-04-14 05:53 | Diagnostic Imaging Report ---
INDICATION: Suicide attempt. Overdose. Portable chest shows normal heart size and vascularity. The lungs are clear. There is no effusion or pneumothorax. The ET tube and OG tube have been removed since 04/13/2018. IMPRESSION: No acute abnormality is seen. Dictated by: Dictated on workstation # [id number]
[2018-04-14] MEDS: FAMOTIDINE 20MG/2ML IV (PEPCID) IVP SCH (08:41)
--- NOTE | 2018-04-14 10:12 | NUR ---
Contacted Chente KELLEY et requested screener for pt
--- NOTE | 2018-04-14 10:55 | NUR ---
Evie from [facility] here et to begin psych screening.
--- NOTE | 2018-04-14 11:47 | NUR ---
Evie from [facility] completed screening et stated she is recommending outpt follow up et tx. Dr. Alfaro notified et stated she will put in discharge orders.
--- NOTE | 2018-04-14 14:40 | Discharge Summary ---
Diagnosis/Chief Complaint Date of Admission Apr 12, 2018 at 05:08 Date of Discharge Apr 14, 2018 Admission Diagnosis Admission Diagnosis Multiple drug OD, suicide attempt Discharge Diagnosis See Problem List below Problems/Diagnosis: (1) Suicide attempt by multiple drug overdose Assessment & Plan: Pt admitted 04/12/18 to the ICU - intubated in the ER for airway protection - Dr. Arroyo managing vent. 04/14 - pt extubated yesterday and is doing well. Pt reports not having a memory of overdosing. Transferred to the medical floor and Dr. Arroyo signed off. Patient medically stable. [facility] screened patient and ok'd for DC with safety plan in place. Qualifiers: Qualified Codes: T50.902A - Poisoning by unspecified drugs, medicaments and biological substances, intentional self-harm, initial encounter Status: Acute (2) Intentional amitriptyline overdose Assessment & Plan: - metabolic acidosis - on sodium bicarb drip 04/13 - CO2 19, AG was closed but then increased to 18 Qualifiers: Qualified Codes: T43.012A - Poisoning by tricyclic antidepressants, intentional self-harm, initial encounter Status: Acute (3) Benzodiazepine (tranquilizer) overdose Qualifiers: Qualified Codes: T42.4X2A - Poisoning by benzodiazepines, intentional self- harm, initial encounter Status: Acute (4) Insulin overdose Assessment & Plan: Blood sugars running in the 200s Qualifiers: Qualified Codes: T38.3X2A - Poisoning by insulin and oral hypoglycemic [ antidiabetic] drugs, intentional self-harm, initial encounter Status: Acute (5) At high risk for airway occlusion Assessment & Plan: - intubated for airway protection Status: Resolved Resolution Date/Time: 04/13/18 @ 15:20 (6) Diabetes mellitus with neurologic complication, with long-term current use of insulin Assessment & Plan: - BS running 250 on Levemir 10U and SSI 04/13 - increase Levemir to 20U Qualifiers: Qualified Codes: E11.42 - Type 2 diabetes mellitus with diabetic polyneuropathy; 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 She apparently was attempting to ingest Plavix as well but family knocked it from her hand and called EMS. Pt currently intubated and no history as to the reason for the OD could be obtained from the patient. Discharge Summary-Simple/Stand Consultations Discharge Physical Examination Allergies: Coded Allergies: coconut (Verified Allergy, Severe, anaphylactic reaction, 07/11/17) ketorolac (Unverified Allergy, Unknown, 08/19/15) Vitals & I&Os Vital Sign - Last 12Hours Date Time Temp Pulse Resp B/P (MAP) Pulse Ox O2 Delivery O2 Flow Rate FiO2 04/14/18 12:36 104 04/14/18 12:00 98.7 18 125/79 (94) 94 Room Air 04/13/18 11:00 04/13/18 09:43 21 Intake and Output 04/14/18 00:00 Intake Total 690 ml Output Total 2650 ml Balance -1960 ml General Appearance: Alert, Oriented X3, Cooperative Psych/Mental Status: Mood NL Hospital Course See final discharge diagnosis. Labs Laboratory Tests 04/12/18 04:00: White Blood Count 6.8, Red Blood Count 4.73, Hemoglobin 12.6, Hematocrit 36, Mean Corpuscular Volume 76L, Mean Corpuscular Hemoglobin 27, Mean Corpuscular Hemoglobin Concent 35, Red Cell Distribution Width 14.9H, Platelet Count 406H, Mean Platelet Volume 8.9, Neutrophils (%) (Auto) 62, Lymphocytes (%) (Auto) 32, Monocytes (%) (Auto) 3, Eosinophils (%) (Auto) 3, Basophils (%) (Auto) 0, Neutrophils # (Auto) 4.2, Lymphocytes # (Auto) 2.2, Monocytes # (Auto) 0.2, Eosinophils # (Auto) 0.2, Basophils # (Auto) 0.0, Sodium Level 132L, Potassium Level 3.3L, Chloride Level 99, Carbon Dioxide Level 12L, Anion Gap 21H, Blood Urea Nitrogen 6L, Creatinine 0.80, Estimat Glomerular Filtration Rate > 60, BUN/ Creatinine Ratio 8, Glucose Level 371H, Glucometer 369H, Calcium Level 9.4, Corrected Calcium 9.3, Phosphorus Level 2.4, Magnesium Level 3.2H, Total Bilirubin < 0.5, Aspartate Amino Transf (AST/SGOT) 16, Alanine Aminotransferase (ALT/SGPT) 16, Alkaline Phosphatase 171H, Total Creatine Kinase 31, Troponin I < 0.30, Total Protein 10.5H, Albumin 4.1, Triglycerides Level 2898H, Salicylates Level < 5.0L, Acetaminophen Level < 10L, Serum Alcohol < 10 04/12/18 04:25: Urine Color YELLOW, Urine Clarity SLIGHTLY CLOUDY, Urine pH 6, Urine Specific [place] 1.015L, Urine Protein 3+H, Urine Glucose (UA) 4+H, Urine Ketones NEGATIVE, Urine Nitrite NEGATIVE, Urine Bilirubin NEGATIVE, Urine Urobilinogen NORMAL, Urine Leukocyte Esterase NEGATIVE, Urine RBC (Auto) 1+H, Urine RBC 2-5H , Urine WBC NONE, Urine Squamous Epithelial Cells 0-2, Urine Crystals NONE, Urine Bacteria NEGATIVE, Urine Casts NONE, Urine Mucus SMALLH, Urine Culture Indicated NO, Urine Test NEGATIVE, Urine Opiates Screen NEGATIVE, Urine Oxycodone Screen NEGATIVE, Urine Methadone Screen NEGATIVE, Urine Propoxyphene Screen NEGATIVE, Urine Barbiturates Screen NEGATIVE, Ur Tricyclic Antidepressants Screen POSITIVEH, Urine Phencyclidine Screen NEGATIVE, Urine Amphetamines Screen NEGATIVE, Urine Methamphetamines Screen NEGATIVE, Urine Benzodiazepines Screen POSITIVEH, Urine Cocaine Screen NEGATIVE, Urine Cannabinoids Screen NEGATIVE 04/12/18 04:29: Glucometer 280H 04/12/18 05:35: Blood Gas Puncture Site RT RADIAL, Blood Gas Patient Temperature 98.2, Arterial Blood pH 7.34*L, Arterial Blood Partial Pressure CO2 43, Arterial Blood Partial Pressure O2 108H, Arterial Blood HCO3 23, Arterial Blood Total CO2 24.0, Arterial Blood Oxygen Saturation 96, Arterial Blood Base Excess -2.2, Joe Test YES-POS, Blood Gas Ventilator Setting YES, Blood Gas Inspired Oxygen 30% 04/12/18 05:38: Glucometer 267H 04/12/18 06:34: Glucometer 228H 04/12/18 08:10: Glucometer 206H 04/12/18 09:01: Glucometer 215H 04/12/18 10:08: Glucometer 223H 04/12/18 11:24: Glucometer 245H 04/12/18 12:19: Glucometer 245H 04/12/18 13:19: Glucometer 236H 04/12/18 14:00: White Blood Count 8.4, Red Blood Count 4.26L, Hemoglobin 11.1L, Hematocrit 32L, Mean Corpuscular Volume 76L, Mean Corpuscular Hemoglobin 26, Mean Corpuscular Hemoglobin Concent 34, Red Cell Distribution Width 15.1H, Platelet Count 346, Mean Platelet Volume 8.8, Neutrophils (%) (Auto) 68, Lymphocytes (%) (Auto) 23, Monocytes (%) (Auto) 6, Eosinophils (%) (Auto) 2, Basophils (%) (Auto) 0, Neutrophils # (Auto) 5.8, Lymphocytes # (Auto) 2.0, Monocytes # (Auto) 0.5, Eosinophils # (Auto) 0.2, Basophils # (Auto) 0.0, Sodium Level 135, Potassium Level 3.8, Chloride Level 103, Carbon Dioxide Level 20L, Anion Gap 12, Blood Urea Nitrogen 3L, Creatinine 0.56L, Estimat Glomerular Filtration Rate > 60, BUN /Creatinine Ratio 5, Glucose Level 233H, Calcium Level 7.6L, Corrected Calcium 8.3L, Phosphorus Level 1.9L, Magnesium Level 2.1, Total Bilirubin 0.4, Aspartate Amino Transf (AST/SGOT) 15, Alanine Aminotransferase (ALT/SGPT) 12, Alkaline Phosphatase 132, Total Protein 7.3, Albumin 3.1L 04/12/18 16:11: Glucometer 264H 04/12/18 21:16: Glucometer 257H 04/13/18 03:05: Blood Gas Puncture Site RT RADIAL, Blood Gas Patient Temperature 98.6, Arterial Blood pH 7.46H, Arterial Blood Partial Pressure CO2 41, Arterial Blood Partial Pressure O2 90, Arterial Blood HCO3 29H, Arterial Blood Total CO2 29.7, Arterial Blood Oxygen Saturation 96, Arterial Blood Base Excess 4.7H, Joe Test YES-POS, Blood Gas Ventilator Setting YES, Blood Gas Inspired Oxygen 21% 04/13/18 03:42: White Blood Count 10.2, Red Blood Count 4.04L, Hemoglobin 10.4L, Hematocrit 31L , Mean Corpuscular Volume 77L, Mean Corpuscular Hemoglobin 26, Mean Corpuscular Hemoglobin Concent 34, Red Cell Distribution Width 15.6H, Platelet Count 336, Mean Platelet Volume 8.8, Neutrophils (%) (Auto) 76H, Lymphocytes (%) (Auto) 17 , Monocytes (%) (Auto) 6, Eosinophils (%) (Auto) 1, Basophils (%) (Auto) 0, Neutrophils # (Auto) 7.7, Lymphocytes # (Auto) 1.8, Monocytes # (Auto) 0.6, Eosinophils # (Auto) 0.1, Basophils # (Auto) 0.0, Sodium Level 135, Potassium Level 3.3L, Chloride Level 98, Carbon Dioxide Level 19L, Anion Gap 18H, Blood Urea Nitrogen 3L, Creatinine 0.63, Estimat Glomerular Filtration Rate > 60, BUN/ Creatinine Ratio 5, Glucose Level 296H, Calcium Level 8.0L, Corrected Calcium 8.8, Phosphorus Level 2.5, Magnesium Level 1.9, Total Bilirubin 0.3, Aspartate Amino Transf (AST/SGOT) 16, Alanine Aminotransferase (ALT/SGPT) 11, Alkaline Phosphatase 129, Total Protein 7.0, Albumin 3.0L 04/13/18 08:01: Glucometer 282H 04/13/18 12:55: Glucometer 225H 04/13/18 16:14: Glucometer 201H 04/13/18 20:24: Glucometer 153H 04/14/18 03:05: White Blood Count 7.8, Red Blood Count 3.96L, Hemoglobin 10.0L, Hematocrit 31L, Mean Corpuscular Volume 78L, Mean Corpuscular Hemoglobin 25, Mean Corpuscular Hemoglobin Concent 32, Red Cell Distribution Width 15.9H, Platelet Count 307, Mean Platelet Volume 8.9, Neutrophils (%) (Auto) 69, Lymphocytes (%) (Auto) 22, Monocytes (%) (Auto) 6, Eosinophils (%) (Auto) 3, Basophils (%) (Auto) 0, Neutrophils # (Auto) 5.4, Lymphocytes # (Auto) 1.7, Monocytes # (Auto) 0.5, Eosinophils # (Auto) 0.2, Basophils # (Auto) 0.0, Sodium Level 137, Potassium Level 3.6, Chloride Level 107, Carbon Dioxide Level 18L, Anion Gap 12, Blood Urea Nitrogen 2L, Creatinine 0.53L, Estimat Glomerular Filtration Rate > 60, BUN /Creatinine Ratio 4, Glucose Level 206H, Calcium Level 8.4L, Phosphorus Level 3.1, Magnesium Level 1.8, Triglycerides Level 754#H Microbiology 04/12/18 Gram Stain - Final, Complete 04/12/18 Sputum Culture - Final, Complete Usual oral drea Strep agalactiae Group B Discharge Instructions to patient/family Discharge [facility] Discharge Medications Continued Medications: Albuterol Sulfate (Ventolin Hfa) 1 Puff Puff 2 PUFF INH Q4H PRN for SHORTNESS OF BREATH, PUFF 1 PUFF = 90 MCG Aspirin (Aspirin) 81 Mg Tab.chew 81 MG PO DAILY, TAB Atorvastatin Calcium (Atorvastatin Calcium) 80 Mg Tablet 80 MG PO HS, TAB Clopidogrel Bisulfate (Plavix) 75 Mg Tablet 75 MG PO DAILY, TAB Gabapentin (Gabapentin) 300 Mg Capsule 300 MG PO TID, CAP Hydroxyzine HCl (Hydroxyzine HCl) 25 Mg Tablet 25 MG PO Q8H PRN for ANXIETY, TAB Insulin Detemir (Levemir Flextouch) 100 Unit/1 Ml Insuln.pen 20 UNIT SQ BID, EA LAST FILLED IN OCTOBER Insulin Lispro (Humalog Kwikpen) 100 Unit/1 Ml Insuln.pen 15 UNIT SQ TIDAC, EA LAST FILLED OCTOBER 2017 Isosorbide Mononitrate (Isosorbide Mononitrate ER) 30 Mg Tab.er.24h 30 MG PO DAILY, TAB Liraglutide (Victoza 2-Jin) 0.6 Mg/0.1 Ml Pen.injctr 1.8 MG SQ DAILY, VIAL UNKNOWN LAST FILL DATE Metformin HCl (Metformin HCl) 1,000 Mg Tablet 1000 MG PO BID, TAB Metoprolol Succinate (Metoprolol Succinate) 50 Mg Tab.er.24h 50 MG PO BID, TAB Pantoprazole Sodium (Protonix) 40 Mg Tablet.dr 40 MG PO DAILY, TAB Sertraline HCl (Sertraline HCl) 100 Mg Tablet 150 MG PO DAILY, TAB LAST FILLED #45 01-30-18 TAKES 1 & 1/2 (100MG) TABLET Discontinued Medications: Amitriptyline HCl (Amitriptyline HCl) 25 Mg Tablet 25 MG PO HS, TAB Lorazepam (Lorazepam) 1 Mg Tablet 1 MG PO BID, TAB Ranitidine HCl (Acid Health Program Specialist (RANITIDINE)) 150 Mg Tablet 150 MG PO HS, TAB Patient Instructions Goal/Follow Up Appt: Follow up with Dr. Muñoz as scheduled on 1/8/19 at 3:20pm [facility] will call to schedule f/u with Nell and Dr. Mitchell Activity & Diet Discharge Diet: ADA Diet Discharge Medications Reviewed and agree with Discharge Medication list on patient's Discharge Instruction sheet Clinical Quality Measures DVT/VTE Risk/Contraindication: Risk Factor Score Per Nursin RFS Level Per Nursing on Admit: 2=Moderate HANG FELIPE DO Apr 14, 2018 14:40
== END 2018-04-14 15:12 | disposition home or self-care (01) | DRG 917 ==
LOC: EDUNIT# 03:51 → ER 03:53 → ICU 05:08 → 4TH 04-14 09:23
PROVIDERS: ADMIT Family Medicine; ATTEND Family Medicine
PROC: 5A1945Z Respiratory Ventilation, 24-96 Consecutive Hours (ICD-10-PCS; principal; 2018-04-12)
DX: T42.4X2A Poisoning by benzodiazepines, intentional self-harm, initial encounter (principal); J96.00 Acute respiratory failure, unspecified whether with hypoxia or hypercapnia; E87.2 Acidosis; E87.1 Hypo-osmolality and hyponatremia; E87.6 Hypokalemia; E11.65 Type 2 diabetes mellitus with hyperglycemia; T43.012A Poisoning by tricyclic antidepressants, intentional self-harm, initial encounter; T38.3X2A Poisoning by insulin and oral hypoglycemic [antidiabetic] drugs, intentional self-harm, initial encounter; T43.8X2A Poisoning by other psychotropic drugs, intentional self-harm, initial encounter; I25.10 Atherosclerotic heart disease of native coronary artery without angina pectoris; I10 Essential (primary) hypertension; E11.42 Type 2 diabetes mellitus with diabetic polyneuropathy; E78.5 Hyperlipidemia, unspecified; F32.9 Major depressive disorder, single episode, unspecified; K08.409 Partial loss of teeth, unspecified cause, unspecified class; R00.0 Tachycardia, unspecified; I25.2 Old myocardial infarction; Z95.5 Presence of coronary angioplasty implant and graft; Z87.891 Personal history of nicotine dependence
CPT/HCPCS: 36415; 36600; 51702; 71045; 80048; 80053; 80306; 80320; 80329; 81000; 82550; 82805; 82962; 83735; 84100; 84478; 84484; 84703; 85025; 87070; 87205; 93005; 93041; 94002; 94640; 94799; 96360

== ENCOUNTER 2018-04-17 06:26 | Emergency (ER) | payer OTHER ==
[~2018-04-17] VITALS: Ht 157.5 cm; Wt 76.3 kg
[~2018-04-17 06:26] MED LIST changes: +AMIT25TA9 PO; +CLOP75TA69 PO; +HYDR-700 PO; +INSU100I29 SQ; +LIRA0.6P SQ; +PANT40TA2 PO; +RANI150T90 PO; +RT-ALBUINH INH; +SERT100T8 PO
[2018-04-17] MEDS ORDERED: LIDOCAINE 2% VISCOUS 15 ML UDC PO ONE (07:30)
[2018-04-17] MEDS ORDERED: ANTACID SUSP 30 ML UDC (MYLANTA) PO ONE (07:30)
--- NOTE | 2018-04-17 07:56 | ED EENT ---
History of Present Illness General Chief Complaint: Oral/Throat Problems Stated Complaint: SORE THROAT FROM BEING INTUBATED ON PREVIOUS VISIT Nursing Triage Note: AMB TO ROOM WITH MALE WHO REPORTS TO BE SPOUSE. WHO DID ALL TALKING FOR PATIENT. THAT SHE OVERDOSE ON MEDS HAD HAD ET TUBE PLACE ON 04/12 IT WAS REMOVED THE SAME DAY. HAS HAD SORETHROAT AND HARD TIME EATING AND DRINKING BUT IS ABLE TO TAKE PO MEDS. History of Present Illness Date Seen by Provider: Apr 17, 2018 Time Seen by Provider: 07:15 Initial Comments Here with complaint of sore throat that has been going on since 04/13 or 04/14 after patient was elevated subsequent to overdose and respiratory failure requiring intubation. This occurred early in the morning on 04/12 and patient was extubated on 04/13. Also complains of left ear pain and pain when talking. Concerned about the intubation. States she was cleared of intentional overdose and states that this was all accidental and has seen mental health screener. She has follow-up appointment with Dr. Muñoz on 04/24/18. Timing/Duration: gradual Severity: moderate Prearrival Treatment: over the counter meds Associated Symptoms: cough; No fever, No nasal congestion/drainage; sore throat Allergies and Home Medications Allergies Coded Allergies: coconut (Verified Allergy, Severe, anaphylactic reaction, 07/11/17) ketorolac (Unverified Allergy, Unknown, 08/19/15) Home Medications Albuterol Sulfate 1 Puff Puff, 2 PUFF INH Q4H PRN for SHORTNESS OF BREATH, ( Reported) 1 PUFF = 90 MCG Aspirin 81 Mg Tab.chew, 81 MG PO DAILY, (Reported) Atorvastatin Calcium 80 Mg Tablet, 80 MG PO HS, (Reported) Clopidogrel Bisulfate 75 Mg Tablet, 75 MG PO DAILY, (Reported) Gabapentin 300 Mg Capsule, 300 MG PO TID, (Reported) Hydroxyzine HCl 25 Mg Tablet, 25 MG PO Q8H PRN for ANXIETY, (Reported) Insulin Detemir 100 Unit/1 Ml Insuln.pen, 20 UNIT SQ BID, (Reported) LAST FILLED IN OCTOBER Insulin Lispro 100 Unit/1 Ml Insuln.pen, 15 UNIT SQ TIDAC, (Reported) LAST FILLED OCTOBER 2017 Isosorbide Mononitrate 30 Mg Tab.er.24h, 30 MG PO DAILY, (Reported) Liraglutide 0.6 Mg/0.1 Ml Pen.injctr, 1.8 MG SQ DAILY, (Reported) UNKNOWN LAST FILL DATE Metformin HCl 1,000 Mg Tablet, 1,000 MG PO BID, (Reported) Metoprolol Succinate 50 Mg Tab.er.24h, 50 MG PO BID, (Reported) Pantoprazole Sodium 40 Mg Tablet.dr, 40 MG PO DAILY, (Reported) Sertraline HCl 100 Mg Tablet, 150 MG PO DAILY, (Reported) LAST FILLED #45 01-30-18 TAKES 1 & 1/2 (100MG) TABLET Patient Home Medication List Home Medication List Reviewed: Yes Review of Systems Review of Systems Constitutional: see HPI; No chills, No fever Eyes: No Symptoms Reported Ears: See HPI, Pain Nose: congestion Mouth: no symptoms reported Throat: see HPI, pain, hoarse Respiratory: cough; No short of breath Cardiovascular: no symptoms reported Gastrointestinal: No abdominal pain, No nausea, No vomiting Musculoskeletal: no symptoms reported All Other Systems Reviewed Negative Unless Noted: Yes Past Njtflgw-Tlwpkj-Pykwyj Hx Past Med/Social Hx: Reviewed Nursing Past Med/Soc Hx Patient Social History Alcohol Use: Denies Use Recreational Drug Use: No Drug of Choice: UNK Smoking Status: Current Everyday Smoker Type Used: Cigarettes Former Smoker, Quit: Mar 14, 2018 2nd Hand Smoke Exposure: Yes Recent Foreign Travel: No Contact w/Someone Who Travel: No Recent Infectious Disease Expo: No Recent Hopitalizations: Yes (cardiac stents) Immunizations Up To Date Tetanus Booster (TDap): Unknown PED Vaccines UTD: No Date of Pneumonia Vaccine: September 09, 2016 Seasonal Allergies Seasonal Allergies: No Past Medical History Surgeries: Yes Breast, Cardiac, Section, Coronary Stent, Tubal Ligation Respiratory: No Currently Using CPAP: No Currently Using BIPAP: No Cardiac: Yes (Hx of stent to LAD.) Coronary Artery Disease, Heart Attack, Hypertension Neurological: Yes Neuropathy Reproductive Disorders: No Female Reproductive Disorders: Ovarian Cyst Sexually Transmitted Disease: No HIV/AIDS: No Genitourinary: No Gastrointestinal: No Musculoskeletal: Yes (carpal tunnel bilat hands) Chronic Back Pain Endocrine: Yes Diabetes, Insulin dep, Diabetes, Non-Insulin dep HEENT: No Loss of Vision: Denies Hearing Impairment: Denies Cancer: No Psychosocial: No Integumentary: No Blood Disorders: No Adverse Reaction/Blood Tranf: No Family Medical History Reviewed Nursing Family Hx Cardiovascular disease 19 FATHER, Onset:Unknown 19 MOTHER, Onset:Unknown Diabetes mellitus 19 FATHER 19 MOTHER Heart Disease, Diabetes, Other Conditions/Hx Physical Exam Vital Signs Vital Signs - First Documented 04/17/18 06:55 Temp 98.4 Pulse 90 Resp 18 B/P (MAP) 115/83 (94) Pulse Ox 97 O2 Delivery Room Air Height, Weight, BMI Height: 5'2.00" Weight: 168lbs. 5.0oz. 76.488792pi; 29.0 BMI Method:Stated General Appearance: WD/WN, no apparent distress Eyes: bilateral eye normal inspection, bilateral eye PERRL, bilateral eye EOMI Ears: bilateral ear auricle normal, bilateral ear canal normal, bilateral ear TM normal Nose: other (mild erythema and congestion) Mouth/Throat: pharynx tenderness; No trismus; other (pharyngeal erythema noted) Neck: full range of motion, supple, lymphadenopathy (R), lymphadenopathy (L), other (mild submandibular tenderness) Cardiovascular: regular rate, rhythm, no murmur Respiratory: lungs clear, normal breath sounds Gastrointestinal: non tender, soft Neurologic/Psychiatric: alert, oriented x 3 Skin: normal color, warm/dry Procedures/Interventions Date of ETT Placement: Apr 12, 2018 Time of ETT Placement: 0406 Progress/Results/Core Measures Results/Orders My Orders Orders - NESSA MIJARES MD Lidocaine 2% Viscous 15 Ml (Xylocaine Vi (04/17/18 07:30) Antacid Suspension (Mylanta Suspension (04/17/18 07:30) Medications Given in ED Current Medications Medications Dose Ordered Sig/Tomasz Route Start Time Stop Time Status Last Admin Dose Admin Al Hydrox/Mg Hydrox/Simethicone 30 ml ONCE ONCE PO 04/17/18 07:30 04/17/18 07:31 DC 04/17/18 07:45 30 ML Lidocaine HCl 15 ml ONCE ONCE PO 04/17/18 07:30 04/17/18 07:31 DC 04/17/18 07:45 15 ML Vital Signs/I&O 04/17/18 06:55 Temp 98.4 Pulse 90 Resp 18 B/P (MAP) 115/83 (94) Pulse Ox 97 O2 Delivery Room Air Blood Pressure Mean: 94 Progress Progress Note : Progress Note Seen and evaluated. I did review the previous admission and intubation note as well as hospital course. GI cocktail ordered. Patient is only able to take about half of that and it causes vomiting. She is instructed to swish and spit. We will continue this as outpatient therapy using topical cough drops and have her follow-up with her primary next week if not improved. She will continue Tylenol when necessary. Discharged home with return precautions. Patient verbalize understanding instructions and agreement with plan. Departure Impression Primary Impression: Pharyngitis Qualified Codes: J02.9 - Acute pharyngitis, unspecified Disposition: HOME, SELF-CARE Condition: Stable Departure-Patient Inst. Decision time for Depature: 08:01 Referrals: [facility] (PCP/Family) Primary Care Physician Patient Instructions: Viral Pharyngitis (DC) Add. Discharge Instructions: All discharge instructions reviewed with patient and/or family. Voiced understanding. You may use when-[id number] cough drops such as Cepacol or similar to help with the pain. He may continue Tylenol/acetaminophen 1000 mg every 8 hours as needed for pain. Continue other medications as previously directed. Follow-up with your doctor next week as scheduled or earlier if needed. Return for worse pain, fever, vomiting, weakness, breathing problems or other concerns as needed. Copy Copies To 1: BRI MUÑOZ MD, TIMOTHY D MD Apr 17, 2018 07:56
[2018-04-17 08:04] VITALS: BP 128/91
== END 2018-04-17 08:04 | disposition home or self-care (01) ==
LOC: EDUNIT# 06:26 → ER 06:28
DX: J02.9 Acute pharyngitis, unspecified (principal); I25.10 Atherosclerotic heart disease of native coronary artery without angina pectoris; I25.2 Old myocardial infarction; I10 Essential (primary) hypertension; E11.40 Type 2 diabetes mellitus with diabetic neuropathy, unspecified; Z82.49 Family history of ischemic heart disease and other diseases of the circulatory system; Z87.448 Personal history of other diseases of urinary system; Z88.4 Allergy status to anesthetic agent; Z79.51 Long term (current) use of inhaled steroids; Z79.82 Long term (current) use of aspirin; Z79.4 Long term (current) use of insulin; Z87.891 Personal history of nicotine dependence; Z95.5 Presence of coronary angioplasty implant and graft; Z98.51 Tubal ligation status; Z98.890 Other specified postprocedural states
CPT/HCPCS: 99283

== ENCOUNTER 2018-04-21 23:39 | Emergency (ER) | payer OTHER ==
[~2018-04-21] VITALS: Ht 157.5 cm; Wt 76.3 kg
--- OUTSIDE RECORDS SUMMARY | 2018-04-21 23:47 | XMS REPORT | Clinical Summary ---
Author Author [facility] Organization [facility] Address Unknown Phone Unavailable Care Team Providers Care Stamp Clerk Name Role Phone Alfred Diaz MD PCP Unavailable Source Comments Some departments are not documenting in the electronic medical record. If you do not see the information that you expected, contact Release of Information in the Health Information Management department at [phone] for further assistance in locating additional records.[facility] Allergies Not on File Medications Not on [...] ID Type Phone Address Plan / Group [facility] MEDICAID [facility] xxxxxxxxxxx Medicaid [place] Advance Directives Patient has advance care planning documents on file. For more information, please contact: [facility] [address] [place] [address]
[2018-04-22] MEDS ORDERED: NS IV 1000 ML 1,000 ML IV ONE (00:41)
[2018-04-22] MEDS ORDERED: ONDANSETRON 4 MG/2 ML (SDV) Z0FRAN IVP ONE (00:45)
[2018-04-22 01:16] LABS: BASOPHILS % (AUTO) 0 % (0-10); EOSINOPHILS # (AUTO) 0.2 10^3/uL (0.0-0.3); EOSINOPHILS % (AUTO) 4 % (0-10); HEMATOCRIT 36 % (35-52); HEMOGLOBIN 11.7 G/DL (11.5-16.0); LYMPHOCYTES # (AUTO) 2.2 X 10^3 (1.0-4.0); LYMPHOCYTES % (AUTO) 34 % (12-44); MEAN CORPUSCULAR HEMOGLOBIN 25 PG (25-34); MEAN CORPUSCULAR HGB CONC 33 G/DL (32-36); MEAN CORPUSCULAR VOLUME 77 FL (80-99); MEAN PLATELET VOLUME 8.1 FL (7.4-10.4); MONOCYTES # (AUTO) 0.4 X 10^3 (0.0-1.0); MONOCYTES % (AUTO) 7 % (0-12); NEUTROPHILS # (AUTO) 3.6 X 10^3 (1.8-7.8); NEUTROPHILS % (AUTO) 56 % (42-75); PLATELET COUNT 457 10^3/uL (130-400); RED BLOOD COUNT 4.69 10^6/uL (4.35-5.85); RED CELL DISTRIBUTION WIDTH 14.9 % (10.0-14.5); WHITE BLOOD COUNT 6.6 10^3/uL (4.3-11.0)
[2018-04-22 01:37] LABS: ALANINE AMINOTRANSFERASE 10 U/L (0-55); ALBUMIN 4.1 GM/DL (3.2-4.5); ALKALINE PHOSPHATASE 155 U/L (40-136); BILIRUBIN,TOTAL 0.3 MG/DL (0.1-1.0); BUN/CREATININE RATIO 21; CARBON DIOXIDE 25 MMOL/L (21-32); CHLORIDE 98 MMOL/L (98-107); CREATININE SERUM 0.73 MG/DL (0.60-1.30); GFR ESTIMATED > 60; GLUCOSE 253 MG/DL (70-105); POTASSIUM 3.9 MMOL/L (3.6-5.0); SODIUM 136 MMOL/L (135-145); TOTAL PROTEIN 8.3 GM/DL (6.4-8.2)
[2018-04-22] MEDS ORDERED: LIDOCAINE 2% VISCOUS 15 ML UDC PO ONE (01:45)
[2018-04-22] MEDS ORDERED: AZITHROMYCIN 250 MG TAB (ZITHROMAX) PO ONE (01:45)
[2018-04-22] MEDS ORDERED: NYSTATIN ORAL SUSP 5 ML UDC PO ONE (01:45)
[2018-04-22] MEDS ORDERED: DEXAMETHASONE 10 MG/ML (DECADRON) 1 ML VIAL IV ONE (01:45)
[2018-04-22] MEDS ORDERED: fentaNYL INJECTION 100 MCG/2 ML AMP IVP ONE (02:15)
--- NOTE | 2018-04-22 02:59 | ED General ---
General Chief Complaint: Oral/Throat Problems Stated Complaint: CAN'T TALK,CAN'T DRINK,CAN'T EAT Nursing Triage Note: AMBULATORY TO ED. PER PT S/O PT WAS SEEN IN ED 04/17/18 FOR SORE THROAT POST INTUBATION AFTER OD. S/O STATES SHE CAN'T SWOLLOW, CAN'T EAT, AND HAS BEEN VOMITING. SAW PCP 04/18. WAS TOLD THROAT WAS RED ON 04/17/18 AND TOLD TO USE COUGH DROPS. PT S/O IS TALKING FOR PT HE STATES SHE CANNOT SPEAK AND PT DOES NOT ATTEMPT TO DO SO. Nursing Sepsis Screen: No Definite Risk Source of Information: Patient, Old Records Exam Limitations: No Limitations History of Present Illness Date Seen by Provider: Apr 22, 2018 Time Seen by Provider: 00:30 Initial Comments This 38-year-old woman presents to the emergency room with complaints of difficulty swallowing and talking due to pharyngeal pain. She had been admitted April 12 and intubated due to accidental overdose. She was seen a few days ago on April 17 for similar complaints. She reports she has not been able to eat or drink more than small sips since extubation. She has been taking Tylenol for pain. She is slightly tachycardic but afebrile. Patient does speak but only in a whispered voice. As patient describes her problems, she appears to have a difficulty swallowing and speaking secondary to pain rather than mechanical problems. Patient also complains of left earache. Allergies and Home Medications Allergies Coded Allergies: coconut (Verified Allergy, Severe, anaphylactic reaction, 07/11/17) ketorolac (Unverified Allergy, Unknown, 08/19/15) Home Medications Albuterol Sulfate 1 Puff Puff, 2 PUFF INH Q4H PRN for SHORTNESS OF BREATH, ( Reported) 1 PUFF = 90 MCG Aspirin 81 Mg Tab.chew, 81 MG PO DAILY, (Reported) Atorvastatin Calcium 80 Mg Tablet, 80 MG PO HS, (Reported) Azithromycin 250 Mg Tablet, 250 MG PO DAILY Prescribed by: VIN VACA on 04/22/18 0303 Clopidogrel Bisulfate 75 Mg Tablet, 75 MG PO DAILY, (Reported) Gabapentin 300 Mg Capsule, 300 MG PO TID, (Reported) Hydroxyzine HCl 25 Mg Tablet, 25 MG PO Q8H PRN for ANXIETY, (Reported) Insulin Detemir 100 Unit/1 Ml Insuln.pen, 20 UNIT SQ BID, (Reported) LAST FILLED IN OCTOBER Insulin Lispro 100 Unit/1 Ml Insuln.pen, 15 UNIT SQ TIDAC, (Reported) LAST FILLED OCTOBER 2017 Isosorbide Mononitrate 30 Mg Tab.er.24h, 30 MG PO DAILY, (Reported) Liraglutide 0.6 Mg/0.1 Ml Pen.injctr, 1.8 MG SQ DAILY, (Reported) UNKNOWN LAST FILL DATE Metformin HCl 1,000 Mg Tablet, 1,000 MG PO BID, (Reported) Metoprolol Succinate 50 Mg Tab.er.24h, 50 MG PO BID, (Reported) Nystatin 100,000 Unit/1 Ml Oral.susp, 5 ML PO QID Prescribed by: VIN VACA on 04/22/18302 Ondansetron 4 Mg Tab.rapdis, 4 MG SL Q4H Prescribed by: VIN VACA on 04/22/18302 Pantoprazole Sodium 40 Mg Tablet.dr, 40 MG PO DAILY, (Reported) Sertraline HCl 100 Mg Tablet, 150 MG PO DAILY, (Reported) LAST FILLED #45 01-30-18 TAKES 1 & 1/2 (100MG) TABLET Patient Home Medication List Home Medication List Reviewed: Yes Review of Systems Review of Systems Constitutional: no symptoms reported EENTM: see HPI Respiratory: no symptoms reported Cardiovascular: no symptoms reported Gastrointestinal: no symptoms reported Genitourinary: no symptoms reported Musculoskeletal: no symptoms reported Skin: no symptoms reported Psychiatric/Neurological: No Symptoms Reported Hematologic/Lymphatic: No Symptoms Reported Immunological/Allergic: no symptoms reported Past Ddzmeoa-Ilwmrx-Pfhnvp Hx Patient Social History Alcohol Use: Denies Use Recreational Drug Use: No Drug of Choice: UNK Type Used: Cigarettes Former Smoker, Quit: Mar 14, 2018 2nd Hand Smoke Exposure: Yes Recent Foreign Travel: No Contact w/Someone Who Travel: No Recent Infectious Disease Expo: No Recent Hopitalizations: Yes (OVERDOSE) Immunizations Up To Date Tetanus Booster (TDap): Unknown PED Vaccines UTD: No Date of Pneumonia Vaccine: September 09, 2016 Seasonal Allergies Seasonal Allergies: No Past Medical History Surgeries: Yes Breast, Cardiac, Section, Coronary Stent, Tubal Ligation Respiratory: Yes (Respiratory failure and intubation March 2018 secondary to overdose) Currently Using CPAP: No Currently Using BIPAP: No Cardiac: Yes (Hx of stent to LAD.) Coronary Artery Disease, Heart Attack, Hypertension Neurological: Yes Neuropathy Reproductive Disorders: No Female Reproductive Disorders: Ovarian Cyst Sexually Transmitted Disease: No HIV/AIDS: No Genitourinary: No Gastrointestinal: No Musculoskeletal: Yes (carpal tunnel bilat hands) Chronic Back Pain Endocrine: Yes Diabetes, Insulin dep, Diabetes, Non-Insulin dep HEENT: No Loss of Vision: Denies Hearing Impairment: Denies Cancer: No Psychosocial: Yes (Overdose thought to be accidental) Integumentary: No Blood Disorders: No Adverse Reaction/Blood Tranf: No Family Medical History Reviewed Nursing Family Hx Cardiovascular disease 19 FATHER, Onset:Unknown 19 MOTHER, Onset:Unknown Diabetes mellitus 19 FATHER 19 MOTHER Heart Disease, Diabetes, Other Conditions/Hx Physical Exam Vital Signs Vital Signs - First Documented 04/22/18 04/22/18 00:08 03:10 Temp 98.3 Pulse 102 Resp 17 B/P (MAP) 144/94 (111) Pulse Ox 97 Capillary Refill : Less Than 3 Seconds Height, Weight, BMI Height: 5'2.00" Weight: 168lbs. 5.0oz. 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 Norm as Tested Skin: Normal Color, Warm/Dry Procedures/Interventions Date of ETT Placement: Apr 12, 2018 Time of ETT Placement: 0406 Progress/Results/Core Measures Suspected Sepsis Recent Fever Within 48 Hours: No Infection Criteria Present: None New/Unexplained Altered Menta: No Sepsis Screen: No Definite Risk SIRS Temperature:98.3 Pulse: 102 Respiratory Rate: 17 Laboratory Tests 04/22/18 01:08: White Blood Count 6.6 Blood Pressure 144 /94 Mean: 111 Laboratory Tests 04/22/18 01:08: Creatinine 0.73, Platelet Count 457H, Total Bilirubin 0.3 Results/Orders Lab Results Laboratory Tests Test 04/22/18 00:41 04/22/18 01:08 Range/Units Glucometer 253 H 70-110 MG/DL White Blood Count 6.6 4.3-11.0 10^3/uL Red Blood Count 4.69 4.35-5.85 10^6/uL Hemoglobin 11.7 11.5-16.0 G/DL Hematocrit 36 35-52 % Mean Corpuscular Volume 77 L 80-99 FL Mean Corpuscular Hemoglobin 25 25-34 PG Mean Corpuscular Hemoglobin Concent 33 32-36 G/DL Red Cell Distribution Width 14.9 H 10.0-14.5 % Platelet Count 457 H 130-400 10^3/uL Mean Platelet Volume 8.1 7.4-10.4 FL Neutrophils (%) (Auto) 56 42-75 % Lymphocytes (%) (Auto) 34 12-44 % Monocytes (%) (Auto) 7 0-12 % Eosinophils (%) (Auto) 4 0-10 % Basophils (%) (Auto) 0 0-10 % Neutrophils # (Auto) 3.6 1.8-7.8 X 10^3 Lymphocytes # (Auto) 2.2 1.0-4.0 X 10^3 Monocytes # (Auto) 0.4 0.0-1.0 X 10^3 Eosinophils # (Auto) 0.2 0.0-0.3 10^3/uL Basophils # (Auto) 0.0 0.0-0.1 10^3/uL Sodium Level 136 135-145 MMOL/L Potassium Level 3.9 3.6-5.0 MMOL/L Chloride Level 98 98-107 MMOL/L Carbon Dioxide Level 25 21-32 MMOL/L Anion Gap 13 5-14 MMOL/L Blood Urea Nitrogen 15 7-18 MG/DL Creatinine 0.73 0.60-1.30 MG/DL Estimat Glomerular Filtration Rate > 60 BUN/Creatinine Ratio 21 Glucose Level 253 H 70-105 MG/DL Calcium Level 10.0 8.5-10.1 MG/DL Corrected Calcium 9.9 8.5-10.1 MG/DL Total Bilirubin 0.3 0.1-1.0 MG/DL Aspartate Amino Transf (AST/SGOT) 11 5-34 U/L Alanine Aminotransferase (ALT/SGPT) 10 0-55 U/L Alkaline Phosphatase 155 H 40-136 U/L C-Reactive Protein High Sensitivity 0.73 H 0.00-0.50 MG/DL Total Protein 8.3 H 6.4-8.2 GM/DL Albumin 4.1 3.2-4.5 GM/DL My Orders Orders - VIN PINEDA MD Cbc With Automated Diff (04/22/18 00:41) Comprehensive Metabolic Panel (04/22/18 00:41) Hs C Reactive Protein (04/22/18 00:41) Saline Lock/Iv-Start (04/22/18 00:41) Ns Iv 1000 Ml (Sodium Chloride 0.9%) (04/22/18 00:41) Ct Neck (Soft Tissue) Wo (04/22/18 00:41) Ondansetron Injection (Zofran Injectio (04/22/18 00:45) Accucheck Stat ONCE (04/22/18 00:41) Lidocaine 2% Viscous 15 Ml (Xylocaine Vi (04/22/18 01:45) Nystatin Oral Suspension (Mycostatin O (04/22/18 01:45) Dexamethasone Injection (Decadron Inject (04/22/18 01:45) Azithromycin Tablet (Zithromax Tablet) (04/22/18 01:45) Fentanyl Injection (Sublimaze Injection (04/22/18 02:15) Medications Given in ED Vital Signs/I&O Capillary Refill : Less Than 3 Seconds Blood Pressure Mean: 111 Point of Care Testing Finger Stick Blood Glucose: 253 Progress Note : Progress Note Patient's exam was unremarkable except for mild tachycardia. This issue was approached aggressively as this is her second ER visit for the problem. CT of the soft tissues neck were obtained to rule out any major mechanical problem. There was minimal edema noted with no other findings. Since patient is diabetic and was intubated, it is possible that she could have some type of infectious pharyngitis from yeast or bacteria. She was therefore empirically treated with azithromycin and nystatin swish and swallow. She was able to take both of these medications orally in the ER after being treated with viscous lidocaine and fentanyl. Labs were relatively unremarkable demonstrating no signs of dehydration. She was hydrated with 1 L of IV normal saline which dropped her heart rate by about 10 bpm. Dexamethasone 10 mg IV was given for treatment of inflammation. No prescription for steroids was provided as patient is diabetic. She was given prescriptions for azithromycin and nystatin swish and swallow empirically. Diagnostic Imaging Diagonstic Imaging: CT Plain Films/CT/US/NM/MRI: abdomen, pelvis Comments CT soft tissues neck viewed by me and [facility] report reviewed. Questionable mild laryngeal edema. No other acute abnormalities appreciated. Departure Impression Primary Impression: Pharyngitis Qualified Codes: J02.9 - Acute pharyngitis, unspecified Additional Impression: Dysphagia Qualified Codes: R13.12 - Dysphagia, oropharyngeal phase Disposition: HOME, SELF-CARE Condition: Improved Departure-Patient Inst. Decision time for Depature: 02:54 Referrals: TELMA ARROYO DO [facility] (PCP/Family) Primary Care Physician Patient Instructions: Intubation and Mechanical Ventilation Add. Discharge Instructions: Start with a clear liquid diet and gradually advance her diet with small quantities of soft food as tolerated. For primary pain control use viscous lidocaine as prescribed and ibuprofen up to 600 mg every 6 hours as needed. Add Tylenol (acetaminophen) up to 1000 mg every 6 hours as needed for further pain control. Complete your antibiotics and nystatin swish and swallow as prescribed. Contact Dr. Arroyo's office for further instructions and follow-up. All discharge instructions reviewed with patient and/or family. Voiced understanding. Scripts Ondansetron (Ondansetron Odt) 4 Mg Tab.rapdis 4 MG SL Q4H, #10 TAB Prov: VIN PINEDA MD 04/22/18 Nystatin (Nystatin) 100,000 Unit/1 Ml Oral.susp 5 ML PO QID, #120 ML Prov: VIN PINEDA MD 04/22/18 Azithromycin (Azithromycin) 250 Mg Tablet 250 MG PO DAILY, #4 TAB Prov: VIN PINEDA MD 04/22/18 Copy Copies To 1: TELMA ARROYO DO Copies To 2: HANG FELIPE DO VIN PINEDA MD Apr 22, 2018 02:59
[2018-04-22] MEDS ORDERED: ONDA4TAB11 SL (03:03)
[2018-04-22] MEDS ORDERED: NYST1000 PO (03:03)
[2018-04-22] MEDS ORDERED: AZIT250T12 PO (03:03)
[2018-04-22 03:10] VITALS: BP 114/74
--- NOTE | 2018-04-22 06:03 | Diagnostic Imaging Report ---
PROCEDURE: CT neck soft tissue without contrast. TECHNIQUE: Multiple contiguous axial images were obtained through the neck without the use of intravenous contrast. INDICATION: Throat pain. Difficulty speaking. Dysphasia. Recent intubation. COMPARISON: None. FINDINGS: No mass or fluid collection in the neck on this noncontrast exam. Prominent but subcentimeter level I and 2 cervical lymph nodes. No cervical lymphadenopathy by criteria. The pharyngeal soft tissues are symmetric bilaterally. There is mild fullness to the laryngeal soft tissues with no discrete mass identified on this noncontrast exam. The airway is patent. The thyroid and major salivary glands are unremarkable on this noncontrast exam. The floor of the mouth, tongue base and epiglottis are unremarkable. No retropharyngeal fluid collections. No acute findings in the cervical spine. The visualized paranasal sinuses and mastoids are clear. Skull base is intact. The lung apices are clear. IMPRESSION: 1. Mild prominence of the laryngeal soft tissues may be due to edema. No discrete mass or fluid collection is identified on this noncontrast exam. 2. Prominent but subcentimeter level I and 2 cervical lymph nodes bilaterally are likely reactive. No necrotic lymph nodes. Dictated by: Dictated on workstation # [id number]
[2018-04-23] MEDS ORDERED: AMOX400S8 PO (01:21)
== END 2018-04-22 03:11 | disposition home or self-care (01) ==
LOC: EDUNIT# 23:39 → ER 23:42
DX: J02.9 Acute pharyngitis, unspecified (principal); R13.10 Dysphagia, unspecified; I25.10 Atherosclerotic heart disease of native coronary artery without angina pectoris; I25.2 Old myocardial infarction; I10 Essential (primary) hypertension; E11.40 Type 2 diabetes mellitus with diabetic neuropathy, unspecified; Z82.49 Family history of ischemic heart disease and other diseases of the circulatory system; Z87.448 Personal history of other diseases of urinary system; Z88.4 Allergy status to anesthetic agent; Z79.51 Long term (current) use of inhaled steroids; Z79.82 Long term (current) use of aspirin; Z79.02 Long term (current) use of antithrombotics/antiplatelets; Z79.4 Long term (current) use of insulin; Z87.891 Personal history of nicotine dependence; Z95.5 Presence of coronary angioplasty implant and graft; Z98.51 Tubal ligation status; Z98.890 Other specified postprocedural states; Z87.09 Personal history of other diseases of the respiratory system
CPT/HCPCS: 36415; 70490; 80053; 82962; 85025; 86141; 96361; 96374; 96375

== ENCOUNTER 2018-04-22 23:50 | Emergency (ER) | payer OTHER ==
[~2018-04-22] VITALS: Ht 157.5 cm; Wt 76.3 kg
[~2018-04-22 23:50] MED LIST changes: +AZIT250T12 PO; +NYST1000 PO; +ONDA4TAB11 SL
--- OUTSIDE RECORDS SUMMARY | 2018-04-22 23:56 | XMS REPORT | Clinical Summary ---
Author Author [facility] Organization [facility] Address Unknown Phone Unavailable Care Team Providers Care Taxi Cab Driver Name Role Phone Alfred Diaz MD PCP Unavailable Source Comments Some departments are not documenting in the electronic medical record. If you do not see the information that you expected, contact Release of Information in the Health Information Management department at [phone] for further assistance in locating additional records.[facility] Allergies Not on File Medications Not [...] ID Type Phone Address Plan / Group [facility] MEDICAID [facility] xxxxxxxxxxx Medicaid COMMUNITY PLAN [place] Advance Directives Patient has advance care planning documents on file. For more information, please contact: [facility] [address] [place] [address]
[2018-04-23 00:33] LABS: BASOPHILS % (AUTO) 0 % (0-10); EOSINOPHILS # (AUTO) 0.1 10^3/uL (0.0-0.3); EOSINOPHILS % (AUTO) 1 % (0-10); HEMATOCRIT 35 % (35-52); HEMOGLOBIN 11.6 G/DL (11.5-16.0); LYMPHOCYTES % (AUTO) 31 % (12-44); MEAN CORPUSCULAR HEMOGLOBIN 25 PG (25-34); MEAN CORPUSCULAR HGB CONC 33 G/DL (32-36); MEAN CORPUSCULAR VOLUME 75 FL (80-99); MEAN PLATELET VOLUME 8.2 FL (7.4-10.4); MONOCYTES # (AUTO) 0.7 X 10^3 (0.0-1.0); MONOCYTES % (AUTO) 7 % (0-12); NEUTROPHILS # (AUTO) 5.7 X 10^3 (1.8-7.8); NEUTROPHILS % (AUTO) 60 % (42-75); PLATELET COUNT 546 10^3/uL (130-400); RED BLOOD COUNT 4.67 10^6/uL (4.35-5.85); RED CELL DISTRIBUTION WIDTH 15.1 % (10.0-14.5); WHITE BLOOD COUNT 9.5 10^3/uL (4.3-11.0)
[2018-04-23] MEDS ORDERED: AMOX400S8 PO (01:21)
--- NOTE | 2018-04-23 01:21 | ED EENT ---
History of Present Illness General Chief Complaint: Oral/Throat Problems Stated Complaint: THROAT ISSUES-SAME YESTERDAY Nursing Triage Note: PT'S SPOUSE REPORTS THAT THE PT WAS IN THE ED YESTERDAY FOR SIMILAR COMPLAINTS OF THROAT PAIN WITH DIFFICULTY SWALLOWING, PT IS ABLE TO ANSWER YES OR NO QUESTIONS AND SPEAKS WITH S HUSHED VOICE. PT DENIES ANY DIFFICULTY BREATHING. Allergies and Home Medications Allergies Coded Allergies: coconut (Verified Allergy, Severe, anaphylactic reaction, 07/11/17) ketorolac (Unverified Allergy, Unknown, 08/19/15) Home Medications Albuterol Sulfate 1 Puff Puff, 2 PUFF INH Q4H PRN for SHORTNESS OF BREATH, ( Reported) 1 PUFF = 90 MCG Aspirin 81 Mg Tab.chew, 81 MG PO DAILY, (Reported) Atorvastatin Calcium 80 Mg Tablet, 80 MG PO HS, (Reported) Azithromycin 250 Mg Tablet, 250 MG PO DAILY Prescribed by: VIN VACA on 04/22/18302 Clopidogrel Bisulfate 75 Mg Tablet, 75 MG PO DAILY, (Reported) Gabapentin 300 Mg Capsule, 300 MG PO TID, (Reported) Hydroxyzine HCl 25 Mg Tablet, 25 MG PO Q8H PRN for ANXIETY, (Reported) Insulin Detemir 100 Unit/1 Ml Insuln.pen, 20 UNIT SQ BID, (Reported) LAST FILLED IN OCTOBER Insulin Lispro 100 Unit/1 Ml Insuln.pen, 15 UNIT SQ TIDAC, (Reported) LAST FILLED OCTOBER 2017 Isosorbide Mononitrate 30 Mg Tab.er.24h, 30 MG PO DAILY, (Reported) Liraglutide 0.6 Mg/0.1 Ml Pen.injctr, 1.8 MG SQ DAILY, (Reported) UNKNOWN LAST FILL DATE Metformin HCl 1,000 Mg Tablet, 1,000 MG PO BID, (Reported) Metoprolol Succinate 50 Mg Tab.er.24h, 50 MG PO BID, (Reported) Nystatin 100,000 Unit/1 Ml Oral.susp, 5 ML PO QID Prescribed by: VIN VACA on 04/22/18302 Ondansetron 4 Mg Tab.rapdis, 4 MG SL Q4H Prescribed by: VIN VACA on 04/22/18302 Pantoprazole Sodium 40 Mg Tablet.dr, 40 MG PO DAILY, (Reported) Sertraline HCl 100 Mg Tablet, 150 MG PO DAILY, (Reported) LAST FILLED #45 10-17-18 TAKES 1 & 1/2 (100MG) TABLET Past Vvsqgix-Kaecoz-Rfvvka Hx Patient Social History Drug of Choice: UNK Type Used: Cigarettes Former Smoker, Quit: Mar 14, 2018 2nd Hand Smoke Exposure: Yes Recent Foreign Travel: No Contact w/Someone Who Travel: No Recent Infectious Disease Expo: No Recent Hopitalizations: Yes (OVERDOSE) Immunizations Up To Date Tetanus Booster (TDap): Unknown PED Vaccines UTD: No Date of Pneumonia Vaccine: September 09, 2016 Seasonal Allergies Seasonal Allergies: No Past Medical History Surgeries: Yes Breast, Cardiac, Section, Coronary Stent, Tubal Ligation Respiratory: Yes (Respiratory failure and intubation March 2018 secondary to overdose) Currently Using CPAP: No Currently Using BIPAP: No Cardiac: Yes (Hx of stent to LAD.) Coronary Artery Disease, Heart Attack, Hypertension Neurological: Yes Neuropathy : No Reproductive Disorders: No Female Reproductive Disorders: Ovarian Cyst 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 Sexually Transmitted Disease: No HIV/AIDS: No Genitourinary: No Gastrointestinal: No Musculoskeletal: Yes (carpal tunnel bilat hands) Chronic Back Pain Endocrine: Yes Diabetes, Insulin dep, Diabetes, Non-Insulin dep HEENT: No Loss of Vision: Denies Hearing Impairment: Denies Cancer: No Psychosocial: Yes (Overdose thought to be accidental) Integumentary: No Blood Disorders: No Adverse Reaction/Blood Tranf: No Family Medical History Cardiovascular disease 19 FATHER, Onset:Unknown 19 MOTHER, Onset:Unknown Diabetes mellitus 19 FATHER 19 MOTHER Heart Disease, Diabetes, Other Conditions/Hx Physical Exam Vital Signs Vital Signs - First Documented 04/23/18 00:05 Temp 98.5 Pulse 102 Resp 20 B/P (MAP) 137/98 (111) Pulse Ox 98 O2 Delivery Room Air Height, Weight, BMI Height: 5'2.00" Weight: 168lbs. 5.0oz. 76.209527tg; 29.0 BMI Method:Stated Procedures/Interventions Date of ETT Placement: Apr 12, 2018 Time of ETT Placement: 405 Progress/Results/Core Measures Results/Orders Lab Results Laboratory Tests Test 04/23/18 00:18 04/23/18 00:27 04/23/18 00:30 Range/Units Glucometer 343 H 70-110 MG/DL White Blood Count 9.5 4.3-11.0 10^3/uL Red Blood Count 4.67 4.35-5.85 10^6/uL Hemoglobin 11.6 11.5-16.0 G/DL Hematocrit 35 35-52 % Mean Corpuscular Volume 75 L 80-99 FL Mean Corpuscular Hemoglobin 25 25-34 PG Mean Corpuscular Hemoglobin Concent 33 32-36 G/DL Red Cell Distribution Width 15.1 H 10.0-14.5 % Platelet Count 546 H 130-400 10^3/uL Mean Platelet Volume 8.2 7.4-10.4 FL Neutrophils (%) (Auto) 60 42-75 % Lymphocytes (%) (Auto) 31 12-44 % Monocytes (%) (Auto) 7 0-12 % Eosinophils (%) (Auto) 1 0-10 % Basophils (%) (Auto) 0 0-10 % Neutrophils # (Auto) 5.7 1.8-7.8 X 10^3 Lymphocytes # (Auto) 3.0 1.0-4.0 X 10^3 Monocytes # (Auto) 0.7 0.0-1.0 X 10^3 Eosinophils # (Auto) 0.1 0.0-0.3 10^3/uL Basophils # (Auto) 0.0 0.0-0.1 10^3/uL Monoscreen NEGATIVE NEGATIVE Group A Streptococcus Screen POSITIVE H NEGATIVE My Orders Orders - ABRAHAM ELY DO Cbc With Automated Diff (04/23/18 00:27) Monotest (04/23/18 00:27) Rapid Strep A Screen (04/23/18 00:27) Rocephin 1000mg Im (04/23/18 01:30) Acetaminophen Oral Solution (Tylenol Ora (04/23/18 01:30) Ibuprofen Suspension (Motrin Suspension) (04/23/18 01:30) Vital Signs/I&O 04/23/18 00:05 Temp 98.5 Pulse 102 Resp 20 B/P (MAP) 137/98 (111) Pulse Ox 98 O2 Delivery Room Air Blood Pressure Mean: 111 Departure Impression Primary Impression: Strep pharyngitis Disposition: 01 HOME, SELF-CARE Condition: Stable Departure-Patient Inst. Referrals: [facility] (PCP/Family) Primary Care Physician Patient Instructions: Strep Throat (DC) Add. Discharge Instructions: LOTS OF CLEAR LIQUIDS--WATER, BROTH, JELLO, GATORADE, POPSICLES TYLENOL 1 GRAM / MOTRIN 800 MG 4 TIMES A DAY FOR PAIN OR FEVER GET YOUR PRESCRIPTIONS FILLED AND TAKE INSTRUCTED FOLLOW UP WITH DR. THOMAS TOMORROW SCHEDULED All discharge instructions reviewed with patient and/or family. Voiced understanding. Scripts Amoxicillin/Potassium Clav (Amox Tr-K Clv 400-57/5 Susp) 400 Mg/5 Ml Susp.recon 12.5 ML PO BID, #250 ML Prov: ABRAHAM ELY DO 04/23/18 ABRAHAM ELY DO Apr 23, 2018 01:21
[2018-04-23] MEDS ORDERED: IBUPROFEN SUSP 100MG/5ML (MOTRIN) UDC PO ONE (01:30)
[2018-04-23] MEDS ORDERED: cefTRIAXone 1,000 MG/2.86 ml vial (IM ONLY) IM ONE (01:30)
[2018-04-23] MEDS ORDERED: APAP 325 MG/10.15 ML LIQ (TYLENOL) UDC PO ONE (01:30)
[2018-04-23] MEDS ORDERED: LIDOCAINE 1% INJ 20 ML 20 ML VIAL ONE (01:34)
[2018-04-23 01:54] VITALS: BP 137/98
== END 2018-04-23 02:13 | disposition home or self-care (01) ==
LOC: EDUNIT# 23:50 → ER 23:52
DX: J02.0 Streptococcal pharyngitis (principal); I25.10 Atherosclerotic heart disease of native coronary artery without angina pectoris; I25.2 Old myocardial infarction; I10 Essential (primary) hypertension; E11.9 Type 2 diabetes mellitus without complications; Z82.49 Family history of ischemic heart disease and other diseases of the circulatory system; Z87.448 Personal history of other diseases of urinary system; Z79.51 Long term (current) use of inhaled steroids; Z79.82 Long term (current) use of aspirin; Z79.4 Long term (current) use of insulin; Z79.02 Long term (current) use of antithrombotics/antiplatelets; Z88.4 Allergy status to anesthetic agent; Z87.891 Personal history of nicotine dependence; Z98.51 Tubal ligation status; Z95.5 Presence of coronary angioplasty implant and graft; Z98.890 Other specified postprocedural states
CPT/HCPCS: 36415; 82962; 85025; 86308; 87430; 96372; 99284

== ENCOUNTER 2018-04-26 02:17 | Emergency (ER) | payer OTHER ==
[~2018-04-26] VITALS: Ht 157.5 cm; Wt 68.0 kg
[~2018-04-26 02:17] MED LIST changes: +AMOX400S8 PO
[2018-04-26] MEDS ORDERED: LACTATED RINGERS 1,000 ML IV ONE (02:57)
[2018-04-26] MEDS ORDERED: ONDANSETRON 4 MG/2 ML (SDV) Z0FRAN IVP ONE (03:00)
[2018-04-26] MEDS ORDERED: PANTOPRAZOLE 40 MG (PROTONIX) VIAL IV ONE (03:00)
[2018-04-26] MEDS ORDERED: methylPREDNISolone 125 MG (Solu-MEDROL) VIAL IVP ONE (03:00)
[2018-04-26] MEDS ORDERED: ANTACID SUSP 30 ML UDC (MYLANTA) PO ONE (03:00)
[2018-04-26] MEDS ORDERED: LIDOCAINE 2% VISCOUS 15 ML UDC PO ONE (03:00)
[2018-04-26 03:37] LABS: BASOPHILS % (AUTO) 0 % (0-10); EOSINOPHILS # (AUTO) 0.2 10^3/uL (0.0-0.3); EOSINOPHILS % (AUTO) 3 % (0-10); HEMATOCRIT 36 % (35-52); HEMOGLOBIN 11.9 G/DL (11.5-16.0); LYMPHOCYTES # (AUTO) 3.2 X 10^3 (1.0-4.0); LYMPHOCYTES % (AUTO) 40 % (12-44); MEAN CORPUSCULAR HEMOGLOBIN 25 PG (25-34); MEAN CORPUSCULAR HGB CONC 33 G/DL (32-36); MEAN CORPUSCULAR VOLUME 76 FL (80-99); MEAN PLATELET VOLUME 8.6 FL (7.4-10.4); MONOCYTES # (AUTO) 0.4 X 10^3 (0.0-1.0); MONOCYTES % (AUTO) 6 % (0-12); NEUTROPHILS # (AUTO) 4.2 X 10^3 (1.8-7.8); NEUTROPHILS % (AUTO) 52 % (42-75); PLATELET COUNT 465 10^3/uL (130-400); RED BLOOD COUNT 4.77 10^6/uL (4.35-5.85); RED CELL DISTRIBUTION WIDTH 14.9 % (10.0-14.5)
[2018-04-26 04:00] VITALS: BP_SYST 146; BP_SYST 149; BP_SYST 151; BP_DIAS 102; BP_DIAS 104; BP_DIAS 111
[2018-04-26 04:01] LABS: ALANINE AMINOTRANSFERASE 13 U/L (0-55); ALBUMIN 3.9 GM/DL (3.2-4.5); ALKALINE PHOSPHATASE 146 U/L (40-136); BILIRUBIN,TOTAL 0.2 MG/DL (0.1-1.0); BUN/CREATININE RATIO 13; CALCIUM 9.4 MG/DL (8.5-10.1); CARBON DIOXIDE 22 MMOL/L (21-32); CHLORIDE 99 MMOL/L (98-107); CREATININE SERUM 0.86 MG/DL (0.60-1.30); GFR ESTIMATED > 60; GLUCOSE 326 MG/DL (70-105); POTASSIUM 4.1 MMOL/L (3.6-5.0); SODIUM 134 MMOL/L (135-145); TOTAL PROTEIN 7.9 GM/DL (6.4-8.2)
[2018-04-26] MEDS ORDERED: NS IV 1000 ML 1,000 ML IV ONE (04:03)
[2018-04-26] MEDS ORDERED: inSUlin (REGULAR) HUMAN 1 UNIT/0.01 ML (CHARGE PER UNIT) IV ONE (04:15)
--- NOTE | 2018-04-26 04:17 | ED EENT ---
History of Present Illness General Chief Complaint: Oral/Throat Problems Stated Complaint: THROAT ISSUES, SAME BEFORE,PAIN LEVEL 12 Nursing Triage Note: Pt arrived by private vehicle from home for chief complaint of throat pain from being intubated on April 12. Pt's boyfriend brought patient and spoke for her. He stated patient's pain is a 12/10. He stated she can't keep any fluids down. He stated the patient had a headache, so he gave her 500mg of tylenol at 0030, which helped. She has a lot of pressure behind left ear. He stated that if her throat does not get better, that she will have to see a specialist. Source: patient, old records, other (MALE S.O. DOES NEARLY ALL TALKING FOR PT) History of Present Illness Date Seen by Provider: Apr 26, 2018 Time Seen by Provider: 02:40 Initial Comments PT ARRIVES VIA POV FROM HOME WITH MALE S.O. MALE S.O. IS WANTING A WORK NOTE FOR HIMSELF SOON HE ARRIVES AT THE ER WAITING ROOM, ASKS RN SOON SHE ENTERS PT'S ROOM AND ASKS ME SOON I ENTER THE PT'S ROOM,--ALL BEFORE PT OR HE SAY ANYTHING ABOUT WHY THE PT IS HERE. 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 DENIES HAVING ANY NAUSEA NOW. NO DIARRHEA NO ACTUAL ABDOMINAL PAIN NO FEVER NO COUGH NO CHEST PAIN NO SHORTNESS OF BREATH NO ABDOMINAL PAIN VOIDED JUST PRIOR TO ARRIVAL. DENIES ANY PROBLEMS URINATING PT WITH MULTITUDE OF VISITS--VARIOUS COMPLAINTS--HAS HAD 19 VISITS HERE SINCE PT WAS MOST RECENTLY ADMITTED FOR AN INTENTIONAL OVERDOSE / SUICIDE ATTEMPT ON 04/12/18 AND REQUIRED INTUBATION PT STATES THAT SINCE THE DAY SHE WAS EXTUBATED, SHE HAS HAD A SORE THROAT AND "CAN'T SWALLOW" DUE TO PAIN--NO PROBLEMS HANDLING SECRETIONS. PT HAS SUBSEQUENTLY BEEN SEEN HERE IN ER ON 04/17 FOR THROAT PAIN SEEN AGAIN 04/21 FOR SORE THROAT AND HAD LAB AND CT NECK DONE. WAS PRESCRIBED NYSTATIN, ZITHROMAX SEEN AGAIN 04/22 FOR SORE THROAT AND LAB WAS DONE AGAIN AND THIS TIME PT TESTED + FOR STREP AND WAS STARTED ON AUGMENTIN STATES SHE SAW DR. THOMAS THE NEXT DAY, WHO STOPPED ALL OF HER RECENTLY PRESCRIBED MEDICATIONS, BUT DID RE-PRESCRIBE THE AUGMENTIN. WAS ALSO PRESCRIBED SOME KIND OF "MOUTHWASH THAT SHE CAN SWALLOW" WELL PROTEIN SHAKES. RX FOR ZOFRAN WAS CALLED IN EARLIER TODAY BUT DID NOT PICK IT UP. HAS FOLLOW UP APPOINTMENT AT [facility] 05/08/18 WANTING FENTANYL SOON SHE ARRIVES--MALE S.O. IS REQUESTING IT FOR HER. PCP: [facility] Allergies and Home Medications Allergies Coded Allergies: coconut (Verified Allergy, Severe, anaphylactic reaction, 07/11/17) ketorolac (Unverified Allergy, Unknown, 08/19/15) Home Medications Albuterol Sulfate 1 Puff Puff, 2 PUFF INH Q4H PRN for SHORTNESS OF BREATH, ( Reported) 1 PUFF = 90 MCG Amoxicillin/Potassium Clav 400 Mg/5 Ml Susp.recon, 12.5 ML PO BID Prescribed by: ABRAHAM ELY on 04/23/18 0121 Aspirin 81 Mg Tab.chew, 81 MG PO DAILY, (Reported) Atorvastatin Calcium 80 Mg Tablet, 80 MG PO HS, (Reported) Azithromycin 250 Mg Tablet, 250 MG PO DAILY Prescribed by: VIN VACA on 04/22/18 0303 Clopidogrel Bisulfate 75 Mg Tablet, 75 MG PO DAILY, (Reported) Gabapentin 300 Mg Capsule, 300 MG PO TID, (Reported) Hydroxyzine HCl 25 Mg Tablet, 25 MG PO Q8H PRN for ANXIETY, (Reported) Insulin Detemir 100 Unit/1 Ml Insuln.pen, 20 UNIT SQ BID, (Reported) LAST FILLED IN OCTOBER Insulin Lispro 100 Unit/1 Ml Insuln.pen, 15 UNIT SQ TIDAC, (Reported) LAST FILLED OCTOBER 2017 Isosorbide Mononitrate 30 Mg Tab.er.24h, 30 MG PO DAILY, (Reported) Lidocaine HCl 15 Ml Solution, 15 ML MM Q 1-2 HOURS Prescribed by: ABRAHAM ELY on 04/26/18422 Liraglutide 0.6 Mg/0.1 Ml Pen.injctr, 1.8 MG SQ DAILY, (Reported) UNKNOWN LAST FILL DATE Metformin HCl 1,000 Mg Tablet, 1,000 MG PO BID, (Reported) Metoprolol Succinate 50 Mg Tab.er.24h, 50 MG PO BID, (Reported) Nystatin 100,000 Unit/1 Ml Oral.susp, 5 ML PO QID Prescribed by: VIN VACA on 04/22/18 030 Ondansetron 4 Mg Tab.rapdis, 4 MG SL Q4H Prescribed by: VIN VACA on 04/22/18302 Pantoprazole Sodium 40 Mg Tablet.dr, 40 MG PO DAILY, (Reported) Sertraline HCl 100 Mg Tablet, 150 MG PO DAILY, (Reported) LAST FILLED #45 01-30-18 TAKES 1 & 1/2 (100MG) TABLET Review of Systems Review of Systems Constitutional: no symptoms reported; No chills, No diaphoresis, No fever Eyes: No Symptoms Reported Ears: No Symptoms Reported Nose: no symptoms reported Mouth: no symptoms reported Throat: see HPI Respiratory: no symptoms reported Cardiovascular: no symptoms reported Gastrointestinal: see HPI Musculoskeletal: no symptoms reported Skin: no symptoms reported Neurological: Anxiety Hematologic/Lymphatic: No Symptoms Reported Immunological/Allergic: no symptoms reported Past Vpixlmd-Yqruqr-Vgtgaz Hx Patient Social History Alcohol Use: Denies Use Recreational Drug Use: Yes Smoking Status: Current Everyday Smoker Type Used: Cigarettes Former Smoker, Quit: Mar 14, 2018 2nd Hand Smoke Exposure: Yes Recent Foreign Travel: No Contact w/Someone Who Travel: No Recent Infectious Disease Expo: No Recent Hopitalizations: Yes (OVERDOSE) Physical Abuse: No Sexual Abuse: No Mistreated: No Fear: No Immunizations Up To Date Tetanus Booster (TDap): Unknown PED Vaccines UTD: No Date of Pneumonia Vaccine: September 09, 2016 Seasonal Allergies Seasonal Allergies: No Past Medical History Surgeries: Yes Breast, Cardiac, Section, Coronary Stent, Tubal Ligation Respiratory: Yes (Respiratory failure and intubation March 2018 secondary to overdose) Currently Using CPAP: No Currently Using BIPAP: No Cardiac: Yes (Hx of stent to LAD.) Coronary Artery Disease, Heart Attack, Hypertension Neurological: Yes Neuropathy Reproductive Disorders: No Female Reproductive Disorders: Ovarian Cyst [employer]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 Sexually Transmitted Disease: No HIV/AIDS: No Genitourinary: No Gastrointestinal: No Musculoskeletal: Yes (carpal tunnel bilat hands) Chronic Back Pain Endocrine: Yes Diabetes, Insulin dep, Diabetes, Non-Insulin dep HEENT: No Loss of Vision: Denies Hearing Impairment: Denies Cancer: No Psychosocial: Yes (OVERDOSE 04/12/18l) Suicide Attempts, Depression Integumentary: No Blood Disorders: No Adverse Reaction/Blood Tranf: No Family Medical History Cardiovascular disease 19 FATHER, Onset:Unknown 19 MOTHER, Onset:Unknown Diabetes mellitus 19 FATHER 19 MOTHER Heart Disease, Diabetes, Other Conditions/Hx Physical Exam Vital Signs Vital Signs - First Documented 04/26/18 02:26 Temp 98.5 Pulse 94 Resp 16 B/P (MAP) 131/90 (104) Pulse Ox 97 O2 Delivery Room Air Height, Weight, BMI Height: 5'2.00" Weight: 150lbs. 0oz. 68.516495ic; 29.0 BMI Method:Stated General Appearance: WD/WN, no apparent distress Eyes: bilateral eye PERRL, bilateral eye EOMI Nose: normal inspection Mouth/Throat: normal mouth inspection, pharynx normal; No tonsillar exudate, No tonsillar swelling, No uvula swelling; other (NO ERYTHEMA OR SWELLING TO PHARYNX. ) Neck: normal inspection Cardiovascular: normal peripheral pulses, regular rate, rhythm, no edema, no JVD, no murmur Respiratory: normal breath sounds, no respiratory distress, no accessory muscle use Gastrointestinal: normal bowel sounds, non tender, soft Neurologic/Psychiatric: proposal specialist II-XII nml as tested, no motor/sensory deficits, alert, oriented x 3 Skin: normal color, warm/dry Procedures/Interventions Date of ETT Placement: Apr 12, 2018 Time of ETT Placement: 0406 Progress/Results/Core Measures Results/Orders Lab Results Laboratory Tests Test 04/26/18 02:58 04/26/18 04:25 04/26/18 05:24 Range/Units White Blood Count 8.0 4.3-11.0 10^3/uL Red Blood Count 4.77 4.35-5.85 10^6/uL Hemoglobin 11.9 11.5-16.0 G/DL Hematocrit 36 35-52 % Mean Corpuscular Volume 76 L 80-99 FL Mean Corpuscular Hemoglobin 25 25-34 PG Mean Corpuscular Hemoglobin Concent 33 32-36 G/DL Red Cell Distribution Width 14.9 H 10.0-14.5 % Platelet Count 465 H 130-400 10^3/uL Mean Platelet Volume 8.6 7.4-10.4 FL Neutrophils (%) (Auto) 52 42-75 % Lymphocytes (%) (Auto) 40 12-44 % Monocytes (%) (Auto) 6 0-12 % Eosinophils (%) (Auto) 3 0-10 % Basophils (%) (Auto) 0 0-10 % Neutrophils # (Auto) 4.2 1.8-7.8 X 10^3 Lymphocytes # (Auto) 3.2 1.0-4.0 X 10^3 Monocytes # (Auto) 0.4 0.0-1.0 X 10^3 Eosinophils # (Auto) 0.2 0.0-0.3 10^3/uL Basophils # (Auto) 0.0 0.0-0.1 10^3/uL Sodium Level 134 L 135-145 MMOL/L Potassium Level 4.1 3.6-5.0 MMOL/L Chloride Level 99 98-107 MMOL/L Carbon Dioxide Level 22 21-32 MMOL/L Anion Gap 13 5-14 MMOL/L Blood Urea Nitrogen 11 7-18 MG/DL Creatinine 0.86 0.60-1.30 MG/DL Estimat Glomerular Filtration Rate > 60 BUN/Creatinine Ratio 13 Glucose Level 326 H 70-105 MG/DL Calcium Level 9.4 8.5-10.1 MG/DL Corrected Calcium 9.5 8.5-10.1 MG/DL Total Bilirubin 0.2 0.1-1.0 MG/DL Aspartate Amino Transf (AST/SGOT) 10 5-34 U/L Alanine Aminotransferase (ALT/SGPT) 13 0-55 U/L Alkaline Phosphatase 146 H 40-136 U/L Total Protein 7.9 6.4-8.2 GM/DL Albumin 3.9 3.2-4.5 GM/DL Urine Color YELLOW Urine Clarity CLEAR Urine pH 5 5-9 Urine Specific [place] 1.020 1.016-1.022 Urine Protein 3+ H NEGATIVE Urine Glucose (UA) 4+ H NEGATIVE Urine Ketones NEGATIVE NEGATIVE Urine Nitrite NEGATIVE NEGATIVE Urine Bilirubin NEGATIVE NEGATIVE Urine Urobilinogen NORMAL NORMAL MG/DL Urine Leukocyte Esterase NEGATIVE NEGATIVE Urine RBC (Auto) NEGATIVE NEGATIVE Urine RBC NONE /HPF Urine WBC NONE /HPF Urine Squamous Epithelial Cells 10-25 H /HPF Urine Crystals NONE /LPF Urine Bacteria TRACE /HPF Urine Casts NONE /LPF Urine Mucus NEGATIVE /LPF Urine Culture Indicated NO Urine Opiates Screen NEGATIVE NEGATIVE Urine Oxycodone Screen NEGATIVE NEGATIVE Urine Methadone Screen NEGATIVE NEGATIVE Urine Propoxyphene Screen NEGATIVE NEGATIVE Urine Barbiturates Screen NEGATIVE NEGATIVE Ur Tricyclic Antidepressants Screen NEGATIVE NEGATIVE Urine Phencyclidine Screen NEGATIVE NEGATIVE Urine Amphetamines Screen NEGATIVE NEGATIVE Urine Methamphetamines Screen NEGATIVE NEGATIVE Urine Benzodiazepines Screen NEGATIVE NEGATIVE Urine Cocaine Screen NEGATIVE NEGATIVE Urine Cannabinoids Screen NEGATIVE NEGATIVE Glucometer 147 H 70-110 MG/DL My Orders Orders - ABRAHAM ELY K DO Saline Lock/Iv-Start (04/26/18 02:57) Orthostatic Vital Signs (Adult (04/26/18 02:57) Cbc With Automated Diff (04/26/18 02:57) Comprehensive Metabolic Panel (04/26/18 02:57) Drug Screen Stat (Urine) (04/26/18 02:57) Ua Culture If Indicated (04/26/18 02:57) Saline Lock/Iv-Start (04/26/18 02:57) Lactated Ringers (Lr 1000 Ml Iv Solution (04/26/18 02:57) Ondansetron Injection (Zofran Injectio (04/26/18 03:00) Antacid Suspension (Mylanta Suspension (04/26/18 03:00) Lidocaine 2% Viscous 15 Ml (Xylocaine Vi (04/26/18 03:00) Pantoprazole Injection (Protonix Injecti (04/26/18 03:00) Methylprednisolone Sod Succ (Solu-Medrol (04/26/18 03:00) Insulin (Regular) Human (Humulin R (Per (04/26/18 04:15) Saline Lock/Iv-Start (04/26/18 04:03) Ns Iv 1000 Ml (Sodium Chloride 0.9%) (04/26/18 04:03) Accucheck Stat ONCE (04/26/18 04:37) Ibuprofen Tablet (Motrin Tablet) (04/26/18 05:30) Acetaminophen Tablet (Tylenol Tablet) (04/26/18 05:30) Medications Given in ED Current Medications Medications Dose Ordered Sig/Tomasz Route Start Time Stop Time Status Last Admin Dose Admin Acetaminophen 1,000 mg ONCE ONCE PO 04/26/18 05:30 04/26/18 05:31 DC 04/26/18 05:26 1,000 MG Al Hydrox/Mg Hydrox/Simethicone 30 ml ONCE ONCE PO 04/26/18 03:00 04/26/18 03:01 DC 04/26/18 03:16 30 ML Ibuprofen 800 mg ONCE ONCE PO 04/26/18 05:30 04/26/18 05:31 DC 04/26/18 05:26 800 MG Insulin Human Regular 25 unit ONCE ONCE IV 04/26/18 04:15 04/26/18 04:29 DC 04/26/18 04:20 25 UNIT Lactated Ringer's 1,000 ml @ 0 mls/hr Q0M ONCE IV 04/26/18 02:57 04/26/18 03:00 DC 04/26/18 03:16 1,000 MLS/HR Lidocaine HCl 15 ml ONCE ONCE PO 04/26/18 03:00 04/26/18 03:01 DC 04/26/18 03:16 15 ML Methylprednisolone Sodium Succinate 125 mg ONCE ONCE IVP 04/26/18 03:00 04/26/18 03:01 DC 04/26/18 03:16 125 MG Ondansetron HCl 4 mg ONCE ONCE IVP 04/26/18 03:00 04/26/18 03:01 DC 04/26/18 03:16 4 MG Pantoprazole 40 mg ONCE ONCE IV 04/26/18 03:00 04/26/18 03:01 DC 04/26/18 03:16 40 MG Sodium Chloride 1,000 ml @ 0 mls/hr Q0M ONCE IV 04/26/18 04:03 04/26/18 04:29 DC 04/26/18 04:20 1,000 MLS/HR Vital Signs/I&O 04/26/18 04/26/18 04/26/18 02:26 04:00 05:30 Temp 98.5 97.9 Pulse 94 89 96 93 98 Resp 16 16 B/P (MAP) 131/90 (104) 146/104 (118) 148/99 (115) 149/102 (118) 151/111 (124) Pulse Ox 97 99 O2 Delivery Room Air Room Air Blood Pressure Mean: 124 Progress Progress Note : Progress Note PT TAKING LIQUIDS WITHOUT DIFFICULTY PRIOR TO DISMISSAL NO VOMITING DURING ER STAY BLOOD GLUCOSE DOWN TO 147 AT DISMISSAL. Departure Impression Primary Impression: Strep pharyngitis Additional Impression: Type 2 diabetes mellitus Disposition: HOME, SELF-CARE Condition: Stable Departure-Patient Inst. Referrals: [facility] (PCP/Family) Primary Care Physician Patient Instructions: Blood Glucose Monitoring, DIABETES, Strep Throat (DC) Add. Discharge Instructions: TAKE YOUR MEDICATIONS PRESCRIBED TYLENOL AND MOTRIN NEEDED FOR PAIN OR FEVER FREQUENT SALT WATER GARGLES CHECK YOUR BLOOD SUGAR AT LEAST 3 TIMES A DAY AND KEEP DIARY AND TAKE WITH YOU TO YOUR DR APPOINTMENTS FOLLOW UP WITH YOUR DR IN 1-2 DAYS FOR FURTHER CARE All discharge instructions reviewed with patient and/or family. Voiced understanding. Scripts Lidocaine HCl (Lidocaine HCl Viscous) 15 Ml Solution 15 ML MM Q 1-2 HOURS for Pain, #120 ML Prov: ABRAHAM ELY DO 04/26/18 ABRAHAM ELY DO Apr 26, 2018 04:17
[2018-04-26] MEDS ORDERED: LIDO15SO2 MM (04:23)
[2018-04-26 04:44] LABS: BILIRUBIN,URINE NEGATIVE (NEGATIVE); CLARITY,URINE CLEAR; COLOR,URINE YELLOW; GLUCOSE, URINE (UA) 4+ (NEGATIVE); KETONES,URINE NEGATIVE (NEGATIVE); LEUKOCYTE ESTERASE ,URINE NEGATIVE (NEGATIVE); NITRITE,URINE NEGATIVE (NEGATIVE); PH,URINE 5 (5-9); PROTEIN,URINE 3+ (NEGATIVE); UROBILINOGEN,URINE NORMAL (NORMAL)
[2018-04-26 05:03] LABS: AMPHETAMINE SCREEN, URINE NEGATIVE (NEGATIVE); BACTERIA,URINE TRACE /HPF; BARBITURATE SCREEN URINE NEGATIVE (NEGATIVE); BENZODIAZEPINES SCREEN URINE NEGATIVE (NEGATIVE); CANNABINOID SCREEN, URINE NEGATIVE (NEGATIVE); COCAINE SCREEN URINE NEGATIVE (NEGATIVE); METHADONE STAT NEGATIVE (NEGATIVE); METHAMPHETAMINE SCREEN URINE S NEGATIVE (NEGATIVE); OPIATE SCREEN URINE NEGATIVE (NEGATIVE); OXYCODONE STAT NEGATIVE (NEGATIVE); PROPOXYPHENE STAT NEGATIVE (NEGATIVE); TRICYCLIC ANTIDEPRESSANTS SCRE NEGATIVE (NEGATIVE)
[2018-04-26 05:30] VITALS: BP 148/99
[2018-04-26] MEDS ORDERED: ACETAMINOPHEN 500 MG TAB (TYLENOL) PO ONE (05:30)
[2018-04-26] MEDS ORDERED: IBUPROFEN 800 MG (MOTRIN) TAB PO ONE (05:30)
== END 2018-04-26 05:30 | disposition home or self-care (01) ==
LOC: EDUNIT# 02:17 → ER 02:19
DX: J02.0 Streptococcal pharyngitis (principal); E11.40 Type 2 diabetes mellitus with diabetic neuropathy, unspecified; I25.10 Atherosclerotic heart disease of native coronary artery without angina pectoris; I25.2 Old myocardial infarction; I10 Essential (primary) hypertension; F32.9 Major depressive disorder, single episode, unspecified; Z82.49 Family history of ischemic heart disease and other diseases of the circulatory system; Z91.5 Personal history of self-harm; Z87.448 Personal history of other diseases of urinary system; Z88.4 Allergy status to anesthetic agent; Z79.51 Long term (current) use of inhaled steroids; Z79.82 Long term (current) use of aspirin; Z79.4 Long term (current) use of insulin; Z79.02 Long term (current) use of antithrombotics/antiplatelets; Z87.891 Personal history of nicotine dependence; Z95.5 Presence of coronary angioplasty implant and graft; Z98.51 Tubal ligation status; Z98.890 Other specified postprocedural states; Z87.09 Personal history of other diseases of the respiratory system
CPT/HCPCS: 36415; 80053; 80306; 81000; 82962; 85025; 96361; 96374; 96375

== ENCOUNTER 2018-04-30 15:05 | Emergency (ER) | payer OTHER ==
[~2018-04-30] VITALS: Ht 157.5 cm; Wt 70.3 kg
[~2018-04-30 15:05] MED LIST changes: +LIDO15SO2 MM
[2018-04-30] MEDS ORDERED: DEXAMETHASONE 10 MG/ML (DECADRON) 1 ML VIAL IM ONE (16:00)
[2018-04-30] MEDS ORDERED: PRED10TA22 PO ×2 (16:11→16:12)
--- NOTE | 2018-04-30 16:11 | ED EENT ---
History of Present Illness General Chief Complaint: Respiratory Problems Stated Complaint: SOB Nursing Triage Note: PT INTUBATED ON THE DUE TO A ACCIDENTAL OVERDOSE. SPOUSE STATES SHE HAS NOT BEEN ABLE TO TALK AND HAS HAD TROUBLE BREATHING SINCE. Source: patient Exam Limitations: no limitations History of Present Illness Date Seen by Provider: Apr 30, 2018 Time Seen by Provider: 16:06 Initial Comments To ER with reports of sore throat and trouble breathing. She was intubated on April 12 and has been back to the emergency room 4 times since then due to throat discomfort. She has seen primary care at [facility] and has some sort of cocktail to drink at home which is supposed to anesthetize her throat but she states that is not helping. She is still hoarse and she occasionally feels like her throat closes up temporarily before resolving. She did test positive for strep throat during one of her visits and so she is currently on Augmentin antibiotics. She has not yet been on steroids. Timing/Duration: abrupt Severity: moderate Location: throat Prearrival Treatment: no prearrival treatment Associated Symptoms: No drooling Allergies and Home Medications Allergies Coded Allergies: coconut (Verified Allergy, Severe, anaphylactic reaction, 07/11/17) ketorolac (Unverified Allergy, Unknown, 08/19/15) Home Medications Albuterol Sulfate 1 Puff Puff, 2 PUFF INH Q4H PRN for SHORTNESS OF BREATH, ( Reported) 1 PUFF = 90 MCG Amoxicillin/Potassium Clav 400 Mg/5 Ml Susp.recon, 12.5 ML PO BID Prescribed by: ABRAHAM ELY on 04/23/18 0121 Aspirin 81 Mg Tab.chew, 81 MG PO DAILY, (Reported) Atorvastatin Calcium 80 Mg Tablet, 80 MG PO HS, (Reported) Azithromycin 250 Mg Tablet, 250 MG PO DAILY Prescribed by: VIN VACA on 04/22/18 0303 Clopidogrel Bisulfate 75 Mg Tablet, 75 MG PO DAILY, (Reported) Gabapentin 300 Mg Capsule, 300 MG PO TID, (Reported) Hydroxyzine HCl 25 Mg Tablet, 25 MG PO Q8H PRN for ANXIETY, (Reported) Insulin Detemir 100 Unit/1 Ml Insuln.pen, 20 UNIT SQ BID, (Reported) LAST FILLED IN OCTOBER Insulin Lispro 100 Unit/1 Ml Insuln.pen, 15 UNIT SQ TIDAC, (Reported) LAST FILLED OCTOBER 2017 Isosorbide Mononitrate 30 Mg Tab.er.24h, 30 MG PO DAILY, (Reported) Lidocaine HCl 15 Ml Solution, 15 ML MM Q 1-2 HOURS Prescribed by: ABRAHAM ELY on 04/26/18422 Liraglutide 0.6 Mg/0.1 Ml Pen.injctr, 1.8 MG SQ DAILY, (Reported) UNKNOWN LAST FILL DATE Metformin HCl 1,000 Mg Tablet, 1,000 MG PO BID, (Reported) Metoprolol Succinate 50 Mg Tab.er.24h, 50 MG PO BID, (Reported) Nystatin 100,000 Unit/1 Ml Oral.susp, 5 ML PO QID Prescribed by: VIN VACA on 04/22/18302 Ondansetron 4 Mg Tab.rapdis, 4 MG SL Q4H Prescribed by: VIN VACA on 04/22/18302 Pantoprazole Sodium 40 Mg Tablet.dr, 40 MG PO DAILY, (Reported) Sertraline HCl 100 Mg Tablet, 150 MG PO DAILY, (Reported) LAST FILLED #45 01-30-18 TAKES 1 & 1/2 (100MG) TABLET Patient Home Medication List Home Medication List Reviewed: Yes Review of Systems Review of Systems Constitutional: see HPI Eyes: No Symptoms Reported Ears: No Symptoms Reported Nose: no symptoms reported Mouth: no symptoms reported Throat: see HPI, pain Respiratory: no symptoms reported Cardiovascular: no symptoms reported Musculoskeletal: no symptoms reported Skin: no symptoms reported Neurological: No Symptoms Reported Hematologic/Lymphatic: No Symptoms Reported Past Gnpgbqt-Hooyiy-Hoqykn Hx Patient Social History Alcohol Use: Denies Use Recreational Drug Use: No Drug of Choice: UNK Smoking Status: Former Smoker Type Used: Cigarettes Former Smoker, Quit: Mar 14, 2018 2nd Hand Smoke Exposure: Yes Recent Foreign Travel: No Contact w/Someone Who Travel: No Recent Infectious Disease Expo: No Recent Hopitalizations: Yes (OVERDOSE) Immunizations Up To Date Tetanus Booster (TDap): Unknown PED Vaccines UTD: No Date of Pneumonia Vaccine: September 09, 2016 Seasonal Allergies Seasonal Allergies: No Past Medical History Surgeries: Yes Breast, Cardiac, Section, Coronary Stent, Tubal Ligation Respiratory: Yes (Respiratory failure and intubation March 2018 secondary to overdose) Currently Using CPAP: No Currently Using BIPAP: No Cardiac: Yes (Hx of stent to LAD.) Coronary Artery Disease, Heart Attack, Hypertension Neurological: Yes Neuropathy Reproductive Disorders: No Female Reproductive Disorders: Ovarian Cyst [employer]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 Sexually Transmitted Disease: No HIV/AIDS: No Genitourinary: No Gastrointestinal: No Musculoskeletal: Yes (carpal tunnel bilat hands) Chronic Back Pain Endocrine: Yes Diabetes, Insulin dep, Diabetes, Non-Insulin dep HEENT: No Loss of Vision: Denies Hearing Impairment: Denies Cancer: No Psychosocial: Yes (OVERDOSE 04/12/18l) Suicide Attempts, Depression Integumentary: No Blood Disorders: No Adverse Reaction/Blood Tranf: No Family Medical History Cardiovascular disease 19 FATHER, Onset:Unknown 19 MOTHER, Onset:Unknown Diabetes mellitus 19 FATHER 19 MOTHER Heart Disease, Diabetes, Other Conditions/Hx Physical Exam Vital Signs Vital Signs - First Documented 04/30/18 15:19 Temp 98.5 Pulse 106 Resp 16 B/P (MAP) 133/93 (106) Pulse Ox 97 O2 Delivery Room Air Height, Weight, BMI Height: 5'2.00" Weight: 155lbs. 0oz. 70.201449om; 29.0 BMI Method:Stated General Appearance: WD/WN, no apparent distress, other (she is able to swallow her own secretions, no stridor, she is able to speak but she has hoarse) Eyes: bilateral eye normal inspection, bilateral eye PERRL, bilateral eye EOMI Ears: bilateral ear auricle normal, bilateral ear canal normal, bilateral ear TM normal Mouth/Throat: No mandibular swelling, No maxillary swelling, No pharynx swelling, No pharynx tenderness, No trismus, No uvula swelling Neck: non-tender, full range of motion; No lymphadenopathy (R), No lymphadenopathy (L); other (no crepitus no swelling) Cardiovascular: regular rate, rhythm, no murmur Respiratory: normal breath sounds, no respiratory distress, no accessory muscle use Gastrointestinal: normal bowel sounds, non tender Neurologic/Psychiatric: alert, normal mood/affect, oriented x 3 Skin: normal color, warm/dry Procedures/Interventions Date of ETT Placement: Apr 12, 2018 Time of ETT Placement: 405 Progress/Results/Core Measures Results/Orders My Orders Orders - LEONARDO EVANS APRN Chest 1 View, Ap/Pa Only (04/30/18 15:47) Soft Tissue Neck (04/30/18 15:57) Dexamethasone Injection (Decadron Inject (04/30/18 16:00) Vital Signs/I&O 04/30/18 15:19 Temp 98.5 Pulse 106 Resp 16 B/P (MAP) 133/93 (106) Pulse Ox 97 O2 Delivery Room Air Blood Pressure Mean: 106 Departure Communication (Admissions) I did make an appointment for follow-up on her behalf with Dr. Parra on June 10 2:45 PM Impression Primary Impression: Hoarse voice quality Additional Impression: H/O laryngeal spasm Disposition: HOME, SELF-CARE Condition: Stable Departure-Patient Inst. Decision time for Depature: 16:10 Referrals: [facility] (PCP/Family) Primary Care Physician Patient Instructions: Laryngoscopy Add. Discharge Instructions: 1. I made an appointment for you with Dr. Parra on June 10 at 2:45 PM. This was the soonest he had available. Take steroids as directed. If the steroids make your blood sugars increase greater than 100 point above average then you must stop the steroids. All discharge instructions reviewed with patient and/or family. Voiced understanding. Scripts Prednisone (Prednisone) 10 Mg Tab.ds.pk 40 MG PO DAILY, #16 EA Prov: LEONARDO EVANS APRN 04/30/18 LEONARDO EVANS APRN Apr 30, 2018 16:11
--- NOTE | 2018-04-30 16:22 | Diagnostic Imaging Report ---
INDICATION: Difficulty breathing. Frontal chest obtained at 04:34 p.m. Heart and mediastinal silhouette are normal in appearance. The lungs are clear. There is no pneumothorax or pleural fluid. IMPRESSION: Negative chest. Dictated by: Dictated on workstation # [id number]
--- NOTE | 2018-04-30 16:26 | Diagnostic Imaging Report ---
INDICATION: Recent intubation. Now complaining of difficulty breathing and talking. TIME OF EXAM: 04:35 p.m. FINDINGS: Two views of the soft tissues of the neck were obtained. Prevertebral tissues are within normal limits. Airway is unremarkable. Epiglottis is unremarkable. No foreign body is seen. IMPRESSION: No acute feature is detected. Dictated by: Dictated on workstation # [id number]
[2018-04-30 16:44] VITALS: BP 132/74
== END 2018-04-30 16:44 | disposition home or self-care (01) ==
LOC: EDUNIT# 15:05 → ER 15:06
DX: R49.0 Dysphonia (principal); I25.10 Atherosclerotic heart disease of native coronary artery without angina pectoris; I25.2 Old myocardial infarction; I10 Essential (primary) hypertension; E11.9 Type 2 diabetes mellitus without complications; F32.9 Major depressive disorder, single episode, unspecified; Z91.5 Personal history of self-harm; Z87.448 Personal history of other diseases of urinary system; Z88.4 Allergy status to anesthetic agent; Z82.49 Family history of ischemic heart disease and other diseases of the circulatory system; Z79.51 Long term (current) use of inhaled steroids; Z79.82 Long term (current) use of aspirin; Z79.4 Long term (current) use of insulin; Z79.02 Long term (current) use of antithrombotics/antiplatelets; Z87.891 Personal history of nicotine dependence; Z98.890 Other specified postprocedural states; Z95.5 Presence of coronary angioplasty implant and graft; Z98.51 Tubal ligation status; Z87.09 Personal history of other diseases of the respiratory system
CPT/HCPCS: 70360; 71045

== ENCOUNTER 2018-05-01 00:27 | Emergency (ER) | payer OTHER ==
[~2018-05-01] VITALS: Ht 157.5 cm; Wt 70.3 kg
[~2018-05-01 00:27] MED LIST changes: +PRED10TA22 PO
[2018-05-01] MEDS ORDERED: NS IV 1000 ML 1,000 ML IV ONE (00:45)
[2018-05-01] MEDS ORDERED: inSUlin (REGULAR) HUMAN 1 UNIT/0.01 ML (CHARGE PER UNIT) IV ONE (00:45)
[2018-05-01 01:05] LABS: BASOPHILS % (AUTO) 0 % (0-10); EOSINOPHILS % (AUTO) 0 % (0-10); HEMATOCRIT 37 % (35-52); HEMOGLOBIN 12.6 G/DL (11.5-16.0); LYMPHOCYTES # (AUTO) 0.9 X 10^3 (1.0-4.0); LYMPHOCYTES % (AUTO) 14 % (12-44); MEAN CORPUSCULAR HEMOGLOBIN 25 PG (25-34); MEAN CORPUSCULAR HGB CONC 34 G/DL (32-36); MEAN CORPUSCULAR VOLUME 74 FL (80-99); MEAN PLATELET VOLUME 8.9 FL (7.4-10.4); MONOCYTES # (AUTO) 0.1 X 10^3 (0.0-1.0); MONOCYTES % (AUTO) 1 % (0-12); NEUTROPHILS # (AUTO) 5.8 X 10^3 (1.8-7.8); NEUTROPHILS % (AUTO) 85 % (42-75); PLATELET COUNT 473 10^3/uL (130-400); RED BLOOD COUNT 4.99 10^6/uL (4.35-5.85); RED CELL DISTRIBUTION WIDTH 15.3 % (10.0-14.5); WHITE BLOOD COUNT 6.8 10^3/uL (4.3-11.0)
[2018-05-01 01:30] LABS: ALANINE AMINOTRANSFERASE 20 U/L (0-55); ALBUMIN 4.2 GM/DL (3.2-4.5); ALKALINE PHOSPHATASE 145 U/L (40-136); BILIRUBIN,TOTAL 0.4 MG/DL (0.1-1.0); BUN/CREATININE RATIO 15; CALCIUM 10.7 MG/DL (8.5-10.1); CARBON DIOXIDE 15 MMOL/L (21-32); CHLORIDE 96 MMOL/L (98-107); CREATININE SERUM 0.84 MG/DL (0.60-1.30); GFR ESTIMATED > 60; POTASSIUM 4.2 MMOL/L (3.6-5.0); SODIUM 130 MMOL/L (135-145); TOTAL PROTEIN 8.5 GM/DL (6.4-8.2)
[2018-05-01 01:32] LABS: GLUCOSE 598 MG/DL (70-105)
[2018-05-01 01:58] LABS: AMPHETAMINE SCREEN, URINE NEGATIVE (NEGATIVE); BARBITURATE SCREEN URINE NEGATIVE (NEGATIVE); BENZODIAZEPINES SCREEN URINE NEGATIVE (NEGATIVE); CANNABINOID SCREEN, URINE NEGATIVE (NEGATIVE); COCAINE SCREEN URINE NEGATIVE (NEGATIVE); METHADONE STAT NEGATIVE (NEGATIVE); METHAMPHETAMINE SCREEN URINE S NEGATIVE (NEGATIVE); OPIATE SCREEN URINE NEGATIVE (NEGATIVE); OXYCODONE STAT NEGATIVE (NEGATIVE); PROPOXYPHENE STAT NEGATIVE (NEGATIVE); TRICYCLIC ANTIDEPRESSANTS SCRE NEGATIVE (NEGATIVE)
--- NOTE | 2018-05-01 02:19 | ED General ---
General Chief Complaint: Glucose Problems Stated Complaint: HIGH BLOOD SUGAR Nursing Triage Note: TO ED WITH S/O STATING PT WAS COMING OUT OF BATHROOM AND WENT DOWN TO FLOOR. NO LOC. BLOOD SUGAR WAS TOO HIGH TO READ. WAS GIVEN 20 UNITS HUMALOG AT APPROX 0000, BLOOD SUGAR WAS APPROX 570 BLIND AIDE. PT WAS SEEN 04/30/18 AND GIVEN STEROIDS AND TOLD IN DC INSTRUCTIONS TO STOP IF BLOOD SUGAR INCREASED 100 ABOVE NORMAL. PT NOT REALLY OPENING EYES AND STATING, "I WANT TO GO TO BED." PT RE-ORIENTED TO ER. Nursing Sepsis Screen: No Definite Risk Allergies and Home Medications Allergies Coded Allergies: coconut (Verified Allergy, Severe, anaphylactic reaction, 07/11/17) ketorolac (Unverified Allergy, Unknown, 08/19/15) Home Medications Albuterol Sulfate 1 Puff Puff, 2 PUFF INH Q4H PRN for SHORTNESS OF BREATH, ( Reported) 1 PUFF = 90 MCG Amoxicillin/Potassium Clav 400 Mg/5 Ml Susp.recon, 12.5 ML PO BID Prescribed by: ABRAHAM ELY on 04/23/18 0121 Aspirin 81 Mg Tab.chew, 81 MG PO DAILY, (Reported) Atorvastatin Calcium 80 Mg Tablet, 80 MG PO HS, (Reported) Azithromycin 250 Mg Tablet, 250 MG PO DAILY Prescribed by: VIN VACA on 04/22/18 0303 Clopidogrel Bisulfate 75 Mg Tablet, 75 MG PO DAILY, (Reported) Gabapentin 300 Mg Capsule, 300 MG PO TID, (Reported) Hydroxyzine HCl 25 Mg Tablet, 25 MG PO Q8H PRN for ANXIETY, (Reported) Insulin Detemir 100 Unit/1 Ml Insuln.pen, 20 UNIT SQ BID, (Reported) LAST FILLED IN OCTOBER Insulin Lispro 100 Unit/1 Ml Insuln.pen, 15 UNIT SQ TIDAC, (Reported) LAST FILLED OCTOBER 2017 Isosorbide Mononitrate 30 Mg Tab.er.24h, 30 MG PO DAILY, (Reported) Lidocaine HCl 15 Ml Solution, 15 ML MM Q 1-2 HOURS Prescribed by: ABRAHAM ELY on 04/26/18 0423 Liraglutide 0.6 Mg/0.1 Ml Pen.injctr, 1.8 MG SQ DAILY, (Reported) UNKNOWN LAST FILL DATE Metformin HCl 1,000 Mg Tablet, 1,000 MG PO BID, (Reported) Metoprolol Succinate 50 Mg Tab.er.24h, 50 MG PO BID, (Reported) Nystatin 100,000 Unit/1 Ml Oral.susp, 5 ML PO QID Prescribed by: VIN VACA on 04/22/18 030 Ondansetron 4 Mg Tab.rapdis, 4 MG SL Q4H Prescribed by: VIN VACA on 04/22/18 030 Pantoprazole Sodium 40 Mg Tablet.dr, 40 MG PO DAILY, (Reported) Prednisone 10 Mg Tab.ds.pk, 40 MG PO DAILY Prescribed by: LEONARDO EVANS on 04/30/18 161 Sertraline HCl 100 Mg Tablet, 150 MG PO DAILY, (Reported) LAST FILLED #45 01-30-18 TAKES 1 & 1/2 (100MG) TABLET Past Pjdimrt-Amebtn-Ozefrg Hx Patient Social History Alcohol Use: Denies Use Recreational Drug Use: No Drug of Choice: DENIES Type Used: Cigarettes Former Smoker, Quit: Mar 14, 2018 2nd Hand Smoke Exposure: Yes Recent Foreign Travel: No Contact w/Someone Who Travel: No Recent Infectious Disease Expo: No Recent Hopitalizations: Yes (OVERDOSE) Immunizations Up To Date Tetanus Booster (TDap): Unknown PED Vaccines UTD: No Date of Pneumonia Vaccine: September 09, 2016 Seasonal Allergies Seasonal Allergies: No Past Medical History Surgeries: Yes Breast, Cardiac, Section, Coronary Stent, Tubal Ligation Respiratory: Yes (Respiratory failure and intubation March 2018 secondary to overdose) Currently Using CPAP: No Currently Using BIPAP: No Cardiac: Yes (Hx of stent to LAD.) Coronary Artery Disease, Heart Attack, Hypertension Neurological: Yes Neuropathy Reproductive Disorders: No Female Reproductive Disorders: Ovarian Cyst 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 Sexually Transmitted Disease: No HIV/AIDS: No Genitourinary: No Gastrointestinal: No Musculoskeletal: Yes (carpal tunnel bilat hands) Chronic Back Pain Endocrine: Yes Diabetes, Insulin dep, Diabetes, Non-Insulin dep HEENT: No Loss of Vision: Denies Hearing Impairment: Denies Cancer: No Psychosocial: Yes (OVERDOSE 04/12/18) Suicide Attempts, Depression Integumentary: No Blood Disorders: No Adverse Reaction/Blood Tranf: No Family Medical History Cardiovascular disease 19 FATHER, Onset:Unknown 19 MOTHER, Onset:Unknown Diabetes mellitus 19 FATHER 19 MOTHER Heart Disease, Diabetes, Other Conditions/Hx Physical Exam Vital Signs Vital Signs - First Documented 05/01/18 00:31 Temp 99.5 Pulse 111 Resp 19 B/P (MAP) 139/106 (117) Capillary Refill : Less Than 3 Seconds Height, Weight, BMI Height: 5'2.00" Weight: 155lbs. 0oz. [id number]; 29.0 BMI Method:Stated Procedures/Interventions Date of ETT Placement: Apr 12, 2018 Time of ETT Placement: 405 Progress/Results/Core Measures Suspected Sepsis Recent Fever Within 48 Hours: No Infection Criteria Present: None New/Unexplained Altered Menta: No Sepsis Screen: No Definite Risk SIRS Temperature:99.5 Pulse: 111 Respiratory Rate: 19 Laboratory Tests 05/01/18 00:55: White Blood Count 6.8 Blood Pressure 139 /106 Mean: 117 Laboratory Tests 05/01/18 00:55: Creatinine 0.84, Platelet Count 473H, Total Bilirubin 0.4 Results/Orders Lab Results Laboratory Tests Test 05/01/18 00:36 05/01/18 00:55 05/01/18 01:30 05/01/18 01:59 Range/Units Glucometer 590 *H 359 H 70-110 MG/DL White Blood Count 6.8 4.3-11.0 10^3/uL Red Blood Count 4.99 4.35-5.85 10^6/uL Hemoglobin 12.6 11.5-16.0 G/DL Hematocrit 37 35-52 % Mean Corpuscular Volume 74 L 80-99 FL Mean Corpuscular Hemoglobin 25 25-34 PG Mean Corpuscular Hemoglobin Concent 34 32-36 G/DL Red Cell Distribution Width 15.3 H 10.0-14.5 % Platelet Count 473 H 130-400 10^3/uL Mean Platelet Volume 8.9 7.4-10.4 FL Neutrophils (%) (Auto) 85 H 42-75 % Lymphocytes (%) (Auto) 14 12-44 % Monocytes (%) (Auto) 1 0-12 % Eosinophils (%) (Auto) 0 0-10 % Basophils (%) (Auto) 0 0-10 % Neutrophils # (Auto) 5.8 1.8-7.8 X 10^3 Lymphocytes # (Auto) 0.9 L 1.0-4.0 X 10^3 Monocytes # (Auto) 0.1 0.0-1.0 X 10^3 Eosinophils # (Auto) 0.0 0.0-0.3 10^3/uL Basophils # (Auto) 0.0 0.0-0.1 10^3/uL Sodium Level 130 L 135-145 MMOL/L Potassium Level 4.2 3.6-5.0 MMOL/L Chloride Level 96 L 98-107 MMOL/L Carbon Dioxide Level 15 L 21-32 MMOL/L Anion Gap 19 H 5-14 MMOL/L Blood Urea Nitrogen 13 7-18 MG/DL Creatinine 0.84 0.60-1.30 MG/DL Estimat Glomerular Filtration Rate > 60 BUN/Creatinine Ratio 15 Glucose Level 598 *H 70-105 MG/DL Calcium Level 10.7 H 8.5-10.1 MG/DL Corrected Calcium 10.5 H 8.5-10.1 MG/DL Total Bilirubin 0.4 0.1-1.0 MG/DL Aspartate Amino Transf (AST/SGOT) 14 5-34 U/L Alanine Aminotransferase (ALT/SGPT) 20 0-55 U/L Alkaline Phosphatase 145 H 40-136 U/L Total Protein 8.5 H 6.4-8.2 GM/DL Albumin 4.2 3.2-4.5 GM/DL Serum Alcohol < 10 <10 MG/DL Urine Opiates Screen NEGATIVE NEGATIVE Urine Oxycodone Screen NEGATIVE NEGATIVE Urine Methadone Screen NEGATIVE NEGATIVE Urine Propoxyphene Screen NEGATIVE NEGATIVE Urine Barbiturates Screen NEGATIVE NEGATIVE Ur Tricyclic Antidepressants Screen NEGATIVE NEGATIVE Urine Phencyclidine Screen NEGATIVE NEGATIVE Urine Amphetamines Screen NEGATIVE NEGATIVE Urine Methamphetamines Screen NEGATIVE NEGATIVE Urine Benzodiazepines Screen NEGATIVE NEGATIVE Urine Cocaine Screen NEGATIVE NEGATIVE Urine Cannabinoids Screen NEGATIVE NEGATIVE My Orders Orders - VIN PINEDA MD Accucheck Stat ONCE (05/01/18 00:40) Alcohol (05/01/18 00:45) Cbc With Automated Diff (05/01/18 00:45) Comprehensive Metabolic Panel (05/01/18 00:45) Drug Screen Stat (Urine) (05/01/18 00:45) Saline Lock/Iv-Start (05/01/18 00:45) Ns Iv 1000 Ml (Sodium Chloride 0.9%) (05/01/18 00:45) Insulin (Regular) Human (Humulin R (Per (05/01/18 00:45) Accucheck Stat ONCE (05/01/18 01:55) Medications Given in ED Current Medications Medications Dose Ordered Sig/Tomasz Route Start Time Stop Time Status Last Admin Dose Admin Insulin Human Regular 10 unit ONCE ONCE IV 05/01/18 00:45 05/01/18 00:47 DC 05/01/18 01:02 10 UNIT Sodium Chloride 1,000 ml @ 0 mls/hr Q0M ONCE IV 05/01/18 00:45 05/01/18 00:47 DC 05/01/18 01:02 999 MLS/HR Vital Signs/I&O 05/01/18 00:31 Temp 99.5 Pulse 111 Resp 19 B/P (MAP) 139/106 (117) Capillary Refill : Less Than 3 Seconds Blood Pressure Mean: 117 Point of Care Testing Finger Stick Blood Glucose: 359 Blood Glucose Action Taken: RN notified Progress Note : Time: 02:16 Progress Note Patient's hyperglycemia is trending down nicely after IV fluids and IV insulin. Patient reports she often becomes hypersomnolent with hyperglycemia, so this episode was typical for her. She has a headache now which she reports is also common when her blood sugars drop rapidly. Patient has not taken her evening dose long-acting insulin. I recommended that she do so when she returns home. Departure Impression Primary Impression: Hyperglycemia Additional Impression: Somnolence Disposition: 01 HOME, SELF-CARE Condition: Improved Departure-Patient Inst. Decision time for Depature: 02:18 Referrals: [facility] (PCP/Family) Primary Care Physician Patient Instructions: Diabetes Type 2 (DC) Add. Discharge Instructions: Drink plenty of clear liquids. Follow-up with your primary care provider as soon as possible. Call this morning in the office opens to arrange follow-up. Complete your antibiotics as prescribed. Return to care if symptoms worsen. All discharge instructions reviewed with patient and/or family. Voiced understanding. VIN PINEDA MD May 01, 2018 02:19
[2018-05-01 02:24] VITALS: BP 131/96
== END 2018-05-01 02:24 | disposition home or self-care (01) ==
LOC: EDUNIT# 00:27 → ER 00:28
DX: E11.65 Type 2 diabetes mellitus with hyperglycemia (principal); R40.0 Somnolence; I25.2 Old myocardial infarction; I10 Essential (primary) hypertension; I25.10 Atherosclerotic heart disease of native coronary artery without angina pectoris; E11.40 Type 2 diabetes mellitus with diabetic neuropathy, unspecified; F32.9 Major depressive disorder, single episode, unspecified; Z82.49 Family history of ischemic heart disease and other diseases of the circulatory system; Z91.5 Personal history of self-harm; Z88.4 Allergy status to anesthetic agent; Z79.51 Long term (current) use of inhaled steroids; Z79.82 Long term (current) use of aspirin; Z79.4 Long term (current) use of insulin; Z79.02 Long term (current) use of antithrombotics/antiplatelets; Z79.52 Long term (current) use of systemic steroids; Z87.891 Personal history of nicotine dependence; Z98.51 Tubal ligation status; Z98.890 Other specified postprocedural states; Z95.5 Presence of coronary angioplasty implant and graft
CPT/HCPCS: 36415; 80053; 80306; 80320; 82962; 85025

== ENCOUNTER 2018-05-25 17:03 | Emergency (ER) | payer SELFPAY ==
[~2018-05-25] VITALS: Ht 157.5 cm; Wt 70.3 kg
[2018-05-25] MEDS ORDERED: ASPIRIN 81 MG CHEW (CHILDREN'S ASA) PO ONE (17:30)
--- NOTE | 2018-05-25 17:44 | Diagnostic Imaging Report ---
EXAMINATION: Chest radiograph, portable AP view. DATE: May 25, 2018 at 1732 hours. INDICATION: 38-year-old female, chest pain. COMPARISON: April 30, 2018. FINDINGS: Heart size and mediastinal contours are unremarkable. There is no identified pneumothorax. There is no large pleural effusion. There is no identified focal airspace consolidation. IMPRESSION: No identified acute cardiopulmonary abnormality. Dictated by: Dictated on workstation # [id number]
[2018-05-25 17:51] LABS: BASOPHILS % (AUTO) 1 % (0-10); EOSINOPHILS # (AUTO) 0.1 10^3/uL (0.0-0.3); EOSINOPHILS % (AUTO) 2 % (0-10); HEMATOCRIT 37 % (35-52); HEMOGLOBIN 12.2 G/DL (11.5-16.0); LYMPHOCYTES # (AUTO) 2.1 X 10^3 (1.0-4.0); LYMPHOCYTES % (AUTO) 37 % (12-44); MEAN CORPUSCULAR HEMOGLOBIN 26 PG (25-34); MEAN CORPUSCULAR HGB CONC 33 G/DL (32-36); MEAN CORPUSCULAR VOLUME 76 FL (80-99); MEAN PLATELET VOLUME 9.4 FL (7.4-10.4); MONOCYTES # (AUTO) 0.4 X 10^3 (0.0-1.0); MONOCYTES % (AUTO) 6 % (0-12); NEUTROPHILS # (AUTO) 3.2 X 10^3 (1.8-7.8); NEUTROPHILS % (AUTO) 55 % (42-75); PLATELET COUNT 299 10^3/uL (130-400); RED CELL DISTRIBUTION WIDTH 15.3 % (10.0-14.5); WHITE BLOOD COUNT 5.8 10^3/uL (4.3-11.0)
[2018-05-25 18:00] LABS: INR 0.8 (0.8-1.4); PROTHROMBIN TIME PATIENT 11.6 SEC (12.2-14.7)
[2018-05-25 18:07] LABS: ALANINE AMINOTRANSFERASE 20 U/L (0-55); ALBUMIN 3.6 GM/DL (3.2-4.5); ALKALINE PHOSPHATASE 133 U/L (40-136); BILIRUBIN,TOTAL 0.3 MG/DL (0.1-1.0); BUN/CREATININE RATIO 11; CALCIUM 8.9 MG/DL (8.5-10.1); CARBON DIOXIDE 18 MMOL/L (21-32); CHLORIDE 103 MMOL/L (98-107); CREATININE SERUM 0.62 MG/DL (0.60-1.30); GFR ESTIMATED > 60; GLUCOSE 350 MG/DL (70-105); MAGNESIUM 1.8 MG/DL (1.8-2.4); POTASSIUM 3.5 MMOL/L (3.6-5.0); SALICYLATE < 5.0 MG/DL (5.0-20.0); SODIUM 137 MMOL/L (135-145); TOTAL PROTEIN 7.1 GM/DL (6.4-8.2)
[2018-05-25 18:09] LABS: ACETAMINOPHEN < 10 UG/ML (10-30)
[2018-05-25 18:13] LABS: MYOGLOBIN SERUM 10.3 NG/ML (10.0-92.0)
--- NOTE | 2018-05-25 18:23 | ED Chest Pain ---
General Chief Complaint: Chest Pain Stated Complaint: CP Nursing Triage Note: PT ARRIVED PER EMS, PT CO OF CHEST PAIN, PT IS VERY LETHARGIC BUT IS ALERT. PT STATES HAS HAD C/P FOR 3 DAYS INTERMITTENTLY WHEN ASK WHY SHE DID NOT COME IN SOONER PT STATES MEDS HAVE KNOCKED HER OUT. DENIES N/V OR DIAPHORISIS. PT HAS SL IN PLACE IN R AC #22. PT STATES HAS TAKEN ASA AT HOME TODAY Nursing Sepsis Screen: No Definite Risk Source: patient Exam Limitations: no limitations History of Present Illness Date Seen by Provider: May 25, 2018 Time Seen by Provider: 18:21 Initial Comments To ER with reports of intermittent chest pain for the past few days. Pain is left-sided, sharp in nature. She has had a cough. No fevers or chills. History of coronary stent placement within the past 6 months. Timing/Duration: intermittent, other (present now,) Severity/Quality: sharp Location: central Radiation: no radiation Activities at Onset: none ASA po FRONT SERVICES AGENT: No NTG SL FRONT SERVICES AGENT: No Allergies and Home Medications Allergies Coded Allergies: coconut (Verified Allergy, Severe, anaphylactic reaction, 07/11/17) ketorolac (Unverified Allergy, Unknown, 08/19/15) Home Medications Albuterol Sulfate 1 Puff Puff, 2 PUFF INH Q4H PRN for SHORTNESS OF BREATH, ( Reported) 1 PUFF = 90 MCG Amoxicillin/Potassium Clav 400 Mg/5 Ml Susp.recon, 12.5 ML PO BID Prescribed by: ABRAHAM ELY on 04/23/18 0121 Aspirin 81 Mg Tab.chew, 81 MG PO DAILY, (Reported) Atorvastatin Calcium 80 Mg Tablet, 80 MG PO HS, (Reported) Azithromycin 250 Mg Tablet, 250 MG PO DAILY Prescribed by: VIN VACA on 04/22/18 0303 Clopidogrel Bisulfate 75 Mg Tablet, 75 MG PO DAILY, (Reported) Gabapentin 300 Mg Capsule, 300 MG PO TID, (Reported) Hydroxyzine HCl 25 Mg Tablet, 25 MG PO Q8H PRN for ANXIETY, (Reported) Insulin Detemir 100 Unit/1 Ml Insuln.pen, 20 UNIT SQ BID, (Reported) LAST FILLED IN OCTOBER Insulin Lispro 100 Unit/1 Ml Insuln.pen, 15 UNIT SQ TIDAC, (Reported) LAST FILLED OCTOBER 2017 Isosorbide Mononitrate 30 Mg Tab.er.24h, 30 MG PO DAILY, (Reported) Lidocaine HCl 15 Ml Solution, 15 ML MM Q 1-2 HOURS Prescribed by: ABRAHAM ELY on 04/26/18 042 Liraglutide 0.6 Mg/0.1 Ml Pen.injctr, 1.8 MG SQ DAILY, (Reported) UNKNOWN LAST FILL DATE Metformin HCl 1,000 Mg Tablet, 1,000 MG PO BID, (Reported) Metoprolol Succinate 50 Mg Tab.er.24h, 50 MG PO BID, (Reported) Nystatin 100,000 Unit/1 Ml Oral.susp, 5 ML PO QID Prescribed by: VIN VACA on 04/22/18 030 Ondansetron 4 Mg Tab.rapdis, 4 MG SL Q4H Prescribed by: VIN VACA on 04/22/18 030 Pantoprazole Sodium 40 Mg Tablet.dr, 40 MG PO DAILY, (Reported) Prednisone 10 Mg Tab.ds.pk, 40 MG PO DAILY Prescribed by: LEONARDO EVANS on 04/30/18 161 Sertraline HCl 100 Mg Tablet, 150 MG PO DAILY, (Reported) LAST FILLED #45 01-30-18 TAKES 1 & 1/2 (100MG) TABLET Patient Home Medication List Home Medication List Reviewed: Yes Review of Systems Review of Systems Constitutional: see HPI EENTM: No Symptoms Reported Respiratory: No Symptoms Reported Cardiovascular: See HPI, Chest Pain Gastrointestinal: No Symptoms Reported Genitourinary: No Symptoms Reported Musculoskeletal: no symptoms reported Skin: no symptoms reported Psychiatric/Neurological: No Symptoms Reported Endocrine: No Symptoms Reported Hematologic/Lymphatic: No Symptoms Reported Past Ykkzxdf-Tclnaf-Whaoko Hx Patient Social History Alcohol Use: Denies Use Recreational Drug Use: No Drug of Choice: DENIES Smoking Status: Current Everyday Smoker Type Used: Cigarettes Former Smoker, Quit: Mar 14, 2018 2nd Hand Smoke Exposure: Yes Recent Foreign Travel: No Contact w/Someone Who Travel: No Recent Infectious Disease Expo: No Recent Hopitalizations: Yes (OVERDOSE 04/12/18) Immunizations Up To Date Tetanus Booster (TDap): Unknown PED Vaccines UTD: No Date of Pneumonia Vaccine: September 09, 2016 Seasonal Allergies Seasonal Allergies: No Past Medical History Surgeries: Yes Breast, Cardiac, Section, Coronary Stent, Orthopedic, Tubal Ligation Respiratory: Yes (Respiratory failure and intubation March 2018 secondary to overdose) Currently Using CPAP: No Currently Using BIPAP: No Cardiac: Yes (Hx of stent to LAD.) Coronary Artery Disease, Heart Attack, High Cholesterol, Hypertension Neurological: Yes Neuropathy Reproductive Disorders: No 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 Sexually Transmitted Disease: No HIV/AIDS: No Genitourinary: No Gastrointestinal: No Musculoskeletal: Yes (carpal tunnel bilat hands; S/P BACK SURGERY/DISCECTOMY) Chronic Back Pain Endocrine: Yes Diabetes, Insulin dep HEENT: No Loss of Vision: Denies Hearing Impairment: Denies Cancer: No Psychosocial: Yes (OVERDOSE ON RX MEDS REQUIRING INTUBATION 04/12/18) Suicide Attempts Integumentary: No Blood Disorders: No Adverse Reaction/Blood Tranf: No Family Medical History Cardiovascular disease 19 FATHER, Onset:Unknown 19 MOTHER, Onset:Unknown Diabetes mellitus 19 FATHER 19 MOTHER Heart Disease, Diabetes, Other Conditions/Hx Physical Exam Vital Signs Vital Signs - First Documented 05/25/18 17:05 Temp 97.2 Pulse 102 Resp 18 B/P (MAP) 118/87 (97) Pulse Ox 98 Capillary Refill : Less Than 3 Seconds Height, Weight, BMI Height: 5'2.00" Weight: 155lbs. 0oz. 70.726207eb; 29.0 BMI Method:Stated General Appearance: No Apparent Distress, WD/WN, Other (lethargic, has difficulty keeping her eyes open during conversation.) HEENT: PERRL/EOMI, TMs Normal Respiratory: No Accessory Muscle Use, No Respiratory Distress Cardiovascular: Regular Rate, Rhythm, Normal Peripheral Pulses Gastrointestinal: Non Tender, Soft Extremity: Normal Capillary Refill, Normal Inspection Neurologic/Psychiatric: Alert, Oriented x3 Skin: Normal Color, Warm/Dry Procedures/Interventions Date of ETT Placement: Apr 12, 2018 Time of ETT Placement: 405 Progress/Results/Core Measures Results/Orders Lab Results Laboratory Tests Test 05/25/18 17:40 05/25/18 19:03 05/25/18 20:05 Range/Units White Blood Count 5.8 4.3-11.0 10^3/uL Red Blood Count 4.79 4.35-5.85 10^6/uL Hemoglobin 12.2 11.5-16.0 G/DL Hematocrit 37 35-52 % Mean Corpuscular Volume 76 L 80-99 FL Mean Corpuscular Hemoglobin 26 25-34 PG Mean Corpuscular Hemoglobin Concent 33 32-36 G/DL Red Cell Distribution Width 15.3 H 10.0-14.5 % Platelet Count 299 130-400 10^3/uL Mean Platelet Volume 9.4 7.4-10.4 FL Neutrophils (%) (Auto) 55 42-75 % Lymphocytes (%) (Auto) 37 12-44 % Monocytes (%) (Auto) 6 0-12 % Eosinophils (%) (Auto) 2 0-10 % Basophils (%) (Auto) 1 0-10 % Neutrophils # (Auto) 3.2 1.8-7.8 X 10^3 Lymphocytes # (Auto) 2.1 1.0-4.0 X 10^3 Monocytes # (Auto) 0.4 0.0-1.0 X 10^3 Eosinophils # (Auto) 0.1 0.0-0.3 10^3/uL Basophils # (Auto) 0.0 0.0-0.1 10^3/uL Prothrombin Time 11.6 L 12.2-14.7 SEC INR Comment 0.8 0.8-1.4 Activated Partial Thromboplast Time 27 24-35 SEC Sodium Level 137 135-145 MMOL/L Potassium Level 3.5 L 3.6-5.0 MMOL/L Chloride Level 103 98-107 MMOL/L Carbon Dioxide Level 18 L 21-32 MMOL/L Anion Gap 16 H 5-14 MMOL/L Blood Urea Nitrogen 7 7-18 MG/DL Creatinine 0.62 0.60-1.30 MG/DL Estimat Glomerular Filtration Rate > 60 BUN/Creatinine Ratio 11 Glucose Level 350 H 70-105 MG/DL Calcium Level 8.9 8.5-10.1 MG/DL Corrected Calcium 9.2 8.5-10.1 MG/DL Magnesium Level 1.8 1.8-2.4 MG/DL Total Bilirubin 0.3 0.1-1.0 MG/DL Aspartate Amino Transf (AST/SGOT) 16 5-34 U/L Alanine Aminotransferase (ALT/SGPT) 20 0-55 U/L Alkaline Phosphatase 133 40-136 U/L Myoglobin 10.3 10.0-92.0 NG/ML Troponin I < 0.028 < 0.028 <0.028 NG/ML B-Type Natriuretic Peptide 10.0 <100.0 PG/ML Total Protein 7.1 6.4-8.2 GM/DL Albumin 3.6 3.2-4.5 GM/DL Salicylates Level < 5.0 L 5.0-20.0 MG/DL Acetaminophen Level < 10 L 10-30 UG/ML Serum Alcohol < 10 <10 MG/DL Urine Opiates Screen POSITIVE H NEGATIVE Urine Oxycodone Screen NEGATIVE NEGATIVE Urine Methadone Screen NEGATIVE NEGATIVE Urine Propoxyphene Screen NEGATIVE NEGATIVE Urine Barbiturates Screen NEGATIVE NEGATIVE Ur Tricyclic Antidepressants Screen NEGATIVE NEGATIVE Urine Phencyclidine Screen NEGATIVE NEGATIVE Urine Amphetamines Screen NEGATIVE NEGATIVE Urine Methamphetamines Screen NEGATIVE NEGATIVE Urine Benzodiazepines Screen NEGATIVE NEGATIVE Urine Cocaine Screen NEGATIVE NEGATIVE Urine Cannabinoids Screen NEGATIVE NEGATIVE My Orders Orders - LEONARDO EVANS APRN Cbc With Automated Diff (05/25/18 17:18) Magnesium (05/25/18 17:18) Chest 1 View, Ap/Pa Only (05/25/18 17:18) Ekg Tracing (05/25/18 17:18) Cardiac Profile 1 (05/25/18 17:18) Comprehensive Metabolic Panel (05/25/18 17:18) Myoglobin Serum (05/25/18 17:18) Protime With Inr (05/25/18 17:18) Partial Thromboplastin Time (05/25/18 17:18) O2 (05/25/18 17:18) Monitor-Rhythm Ecg Trace Only (05/25/18 17:18) Lipid Panel (05/26/18 06:00) Aspirin Chewable Tablet (Baby Aspirin Ch (05/25/18 17:30) Saline Lock/Iv-Start (05/25/18 17:18) BNP (05/25/18 17:18) Drug Screen Stat (Urine) (05/25/18 17:18) Acetaminophen (05/25/18 17:18) Alcohol (05/25/18 17:18) Salicylate (05/25/18 17:18) Fentanyl Injection (Sublimaze Injection (05/25/18 18:30) Ns Iv 1000 Ml (Sodium Chloride 0.9%) (05/25/18 18:45) Troponin I (05/25/18 19:59) Vital Signs/I&O 05/25/18 17:05 Temp 97.2 Pulse 102 Resp 18 B/P (MAP) 118/87 (97) Pulse Ox 98 Blood Pressure Mean: 97 Departure Communication (Admissions) 2043-enzymes remain negative, no EKG changes from prior. Discussed with Dr. Pizano and Dr. Hernandez. Both of whom agree with discharge plan home and outpatient follow-up. Impression Primary Impression: Chest pain Qualified Codes: R07.81 - Pleurodynia Disposition: HOME, SELF-CARE Condition: Stable Departure-Patient Inst. Decision time for Depature: 18:23 Referrals: [facility] (PCP/Family) Primary Care Physician Patient Instructions: Chest Pain (DC) Add. Discharge Instructions: 1. Call your form maker on Sunday to make an appointment for follow-up 2. Return to ER for any concerns 3. Continue take your aspirin and Plavix. All discharge instructions reviewed with patient and/or family. Voiced understanding. LEONARDO EVANS APRN May 25, 2018 18:23
[2018-05-25] MEDS ORDERED: fentaNYL INJECTION 100 MCG/2 ML AMP IVP ONE (18:30)
[2018-05-25] MEDS ORDERED: NS IV 1000 ML 1,000 ML IV SCH (18:45)
[2018-05-25 19:29] LABS: AMPHETAMINE SCREEN, URINE NEGATIVE (NEGATIVE); BARBITURATE SCREEN URINE NEGATIVE (NEGATIVE); BENZODIAZEPINES SCREEN URINE NEGATIVE (NEGATIVE); CANNABINOID SCREEN, URINE NEGATIVE (NEGATIVE); COCAINE SCREEN URINE NEGATIVE (NEGATIVE); METHADONE STAT NEGATIVE (NEGATIVE); METHAMPHETAMINE SCREEN URINE S NEGATIVE (NEGATIVE); OPIATE SCREEN URINE POSITIVE (NEGATIVE); OXYCODONE STAT NEGATIVE (NEGATIVE); PROPOXYPHENE STAT NEGATIVE (NEGATIVE); TRICYCLIC ANTIDEPRESSANTS SCRE NEGATIVE (NEGATIVE)
[2018-05-25 20:51] VITALS: BP 126/89
--- OUTSIDE RECORDS SUMMARY | 2018-05-25 22:51 | XMS REPORT | Clinical Summary ---
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 If you do not see the information that you expected, contact Release of Information in the Health Information Management department at [phone] for further assistance in locating additional records.[facility] Allergies Not on File Medications Not [...] ID Type Phone Address Plan / Group [facility] MEDICAID [facility] xxxxxxxxxxx Medicaid [employer] [place] Advance Directives Patient has advance care planning documents on file. For more information, please contact: [facility] [address] [place] [address]
== END 2018-05-25 20:51 | disposition home or self-care (01) ==
LOC: EDUNIT# 17:03 → ER 17:04
DX: R07.89 Other chest pain (principal); I25.10 Atherosclerotic heart disease of native coronary artery without angina pectoris; I25.2 Old myocardial infarction; E78.00 Pure hypercholesterolemia, unspecified; I10 Essential (primary) hypertension; E11.40 Type 2 diabetes mellitus with diabetic neuropathy, unspecified; Z91.5 Personal history of self-harm; Z87.448 Personal history of other diseases of urinary system; Z88.4 Allergy status to anesthetic agent; Z82.49 Family history of ischemic heart disease and other diseases of the circulatory system; Z79.51 Long term (current) use of inhaled steroids; Z79.82 Long term (current) use of aspirin; Z79.4 Long term (current) use of insulin; Z79.02 Long term (current) use of antithrombotics/antiplatelets; Z79.52 Long term (current) use of systemic steroids; Z95.5 Presence of coronary angioplasty implant and graft; Z87.891 Personal history of nicotine dependence; Z98.890 Other specified postprocedural states; Z98.51 Tubal ligation status; Z87.09 Personal history of other diseases of the respiratory system
CPT/HCPCS: 36415; 71045; 80053; 80306; 80320; 80329; 83735; 83874; 83880; 84484; 85025; 85610; 85730; 93005; 93041

== ENCOUNTER 2018-05-27 10:00 | Observation (INO) | payer SELFPAY ==
[~2018-05-27] VITALS: Ht 157.5 cm; Wt 70.3 kg
[2018-05-27] VITALS (11 sets, daily range): BP systolic 107–145; BP diastolic 72–92
[2018-05-27] MEDS ORDERED: ASPIRIN 81 MG CHEW (CHILDREN'S ASA) PO ONE (10:45)
[2018-05-27 10:50] LABS: BASOPHILS % (AUTO) 0 % (0-10); EOSINOPHILS # (AUTO) 0.2 10^3/uL (0.0-0.3); EOSINOPHILS % (AUTO) 3 % (0-10); HEMATOCRIT 37 % (35-52); HEMOGLOBIN 12.4 G/DL (11.5-16.0); LYMPHOCYTES # (AUTO) 2.3 X 10^3 (1.0-4.0); LYMPHOCYTES % (AUTO) 38 % (12-44); MEAN CORPUSCULAR HEMOGLOBIN 26 PG (25-34); MEAN CORPUSCULAR HGB CONC 34 G/DL (32-36); MEAN CORPUSCULAR VOLUME 76 FL (80-99); MEAN PLATELET VOLUME 9.3 FL (7.4-10.4); MONOCYTES # (AUTO) 0.5 X 10^3 (0.0-1.0); MONOCYTES % (AUTO) 8 % (0-12); NEUTROPHILS # (AUTO) 3.1 X 10^3 (1.8-7.8); NEUTROPHILS % (AUTO) 52 % (42-75); PLATELET COUNT 325 10^3/uL (130-400); RED CELL DISTRIBUTION WIDTH 15.3 % (10.0-14.5); WHITE BLOOD COUNT 6.1 10^3/uL (4.3-11.0)
--- NOTE | 2018-05-27 10:50 | ED Chest Pain ---
General Chief Complaint: Chest Pain Stated Complaint: CHEST PAIN Nursing Triage Note: pt presents tp er with complaint of chest pain. states that pain started 4 days ago. states she was seen in er and discharged home. s/o states they were sent here by dr muñoz and to call her with any questions. Nursing Sepsis Screen: No Definite Risk Source: patient, spouse Exam Limitations: no limitations History of Present Illness Date Seen by Provider: May 27, 2018 Time Seen by Provider: 10:36 Initial Comments The patient resents to ER by private conveyance with her and chief complaint she's having some left upper chest pain is sharp stabbing in nature products 10 out of 10. His been going on for several days now. She was seen in 1 or 2 days ago in the ER by a fellow provider and her labs and EKG a chest x- ray unremarkable that time. Her chest pain does not resolve so she called Dr. Benoit's office as well as her primary care doctor's office in the nurse's they' re instructed her she's having chest pain and back to ER. Patient has known history of coronary disease with LAD involvement. She recently had to be intubated for drug overdose and therefore Dr. Muñoz had stopped several of her medications including her Ranexa. The patient is not on Imdur. She has not use any neck nitroglycerin today because she says she misplaced it. Allergies and Home Medications Allergies Coded Allergies: coconut (Verified Allergy, Severe, anaphylactic reaction, 07/11/17) ketorolac (Unverified Allergy, Unknown, 08/19/15) Home Medications Albuterol Sulfate 1 Puff Puff, 2 PUFF INH Q4H PRN for SHORTNESS OF BREATH, ( Reported) 1 PUFF = 90 MCG Amoxicillin/Potassium Clav 400 Mg/5 Ml Susp.recon, 12.5 ML PO BID Prescribed by: ABRAHAM ELY on 04/23/18 0121 Aspirin 81 Mg Tab.chew, 81 MG PO DAILY, (Reported) Atorvastatin Calcium 80 Mg Tablet, 80 MG PO HS, (Reported) Azithromycin 250 Mg Tablet, 250 MG PO DAILY Prescribed by: VIN VACA on 04/22/18 0303 Clopidogrel Bisulfate 75 Mg Tablet, 75 MG PO DAILY, (Reported) Gabapentin 300 Mg Capsule, 300 MG PO TID, (Reported) Hydroxyzine HCl 25 Mg Tablet, 25 MG PO Q8H PRN for ANXIETY, (Reported) Insulin Detemir 100 Unit/1 Ml Insuln.pen, 20 UNIT SQ BID, (Reported) LAST FILLED IN OCTOBER Insulin Lispro 100 Unit/1 Ml Insuln.pen, 15 UNIT SQ TIDAC, (Reported) LAST FILLED OCTOBER 2017 Isosorbide Mononitrate 30 Mg Tab.er.24h, 30 MG PO DAILY, (Reported) Lidocaine HCl 15 Ml Solution, 15 ML MM Q 1-2 HOURS Prescribed by: ABRAHAM ELY on 04/26/18 0423 Liraglutide 0.6 Mg/0.1 Ml Pen.injctr, 1.8 MG SQ DAILY, (Reported) UNKNOWN LAST FILL DATE Metformin HCl 1,000 Mg Tablet, 1,000 MG PO BID, (Reported) Metoprolol Succinate 50 Mg Tab.er.24h, 50 MG PO BID, (Reported) Nystatin 100,000 Unit/1 Ml Oral.susp, 5 ML PO QID Prescribed by: VIN VACA on 04/22/18 030 Ondansetron 4 Mg Tab.rapdis, 4 MG SL Q4H Prescribed by: VIN VACA on 04/22/18 030 Pantoprazole Sodium 40 Mg Tablet.dr, 40 MG PO DAILY, (Reported) Prednisone 10 Mg Tab.ds.pk, 40 MG PO DAILY Prescribed by: LEONARDO EVANS on 04/30/18 161 Sertraline HCl 100 Mg Tablet, 150 MG PO DAILY, (Reported) LAST FILLED #45 -17-18 TAKES 1 & 1/2 (100MG) TABLET Patient Home Medication List Home Medication List Reviewed: Yes Review of Systems Review of Systems Constitutional: No chills, No diaphoresis EENTM: No Blurred Vision, No Double Vision Respiratory: Denies Cough, Denies Shortness of Air Cardiovascular: See HPI, Chest Pain, Edema; Denies Irregular Heart Rate, Denies Lightheadedness Gastrointestinal: Denies Abdomen Distended, Denies Abdominal Pain Genitourinary: Denies Burning, Denies Discharge Musculoskeletal: No back pain, No joint pain Skin: No pruritus, No rash Past Rvwhqkk-Cmrmma-Xvvdmh Hx Patient Social History Alcohol Use: Denies Use Recreational Drug Use: Yes Drug of Choice: RX DRUG OVERDOSES Smoking Status: Former Smoker Type Used: Cigarettes Former Smoker, Quit: Mar 14, 2018 2nd Hand Smoke Exposure: Yes Recent Foreign Travel: No Contact w/Someone Who Travel: No Recent Infectious Disease Expo: No Recent Hopitalizations: Yes (OVERDOSE 04/12/18) Immunizations Up To Date Tetanus Booster (TDap): Unknown PED Vaccines UTD: No Date of Pneumonia Vaccine: September 09, 2016 Seasonal Allergies Seasonal Allergies: No Past Medical History Surgeries: Yes Breast, Cardiac, Section, Coronary Stent, Orthopedic, Tubal Ligation Respiratory: Yes (Respiratory failure and intubation March 2018 secondary to overdose) Currently Using CPAP: No Currently Using BIPAP: No Cardiac: Yes (Hx of stent to LAD.) Coronary Artery Disease, Heart Attack, High Cholesterol, Hypertension Neurological: Yes Neuropathy Reproductive Disorders: No 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 Sexually Transmitted Disease: No HIV/AIDS: No Genitourinary: No Gastrointestinal: No Musculoskeletal: Yes (carpal tunnel bilat hands; S/P BACK SURGERY/DISCECTOMY) Chronic Back Pain Endocrine: Yes Diabetes, Insulin dep HEENT: No Loss of Vision: Denies Hearing Impairment: Denies Cancer: No Psychosocial: Yes (OVERDOSE ON RX MEDS REQUIRING INTUBATION 04/12/18) Suicide Attempts Integumentary: No Blood Disorders: No Adverse Reaction/Blood Tranf: No Family Medical History Cardiovascular disease 19 FATHER, Onset:Unknown 19 MOTHER, Onset:Unknown Diabetes mellitus 19 FATHER 19 MOTHER Heart Disease, Diabetes, Other Conditions/Hx Physical Exam Vital Signs Vital Signs - First Documented 05/27/18 10:04 Temp 96.9 Pulse 93 Resp 22 B/P (MAP) 137/90 (106) Pulse Ox 98 O2 Delivery Room Air Capillary Refill : Less Than 3 Seconds Height, Weight, BMI Height: 5'2.00" Weight: 155lbs. 0oz. 70.471087ha; 29.0 BMI Method:Stated General Appearance: No Apparent Distress, WD/WN HEENT: PERRL/EOMI, Pharynx Normal, Moist Mucous Membranes Neck: Full Range of Motion, Supple Respiratory: Chest Non Tender, Lungs Clear, Normal Breath Sounds, No Accessory Muscle Use, No Respiratory Distress Cardiovascular: Regular Rate, Rhythm, No Edema, No Gallop, No Murmur, Normal Peripheral Pulses Gastrointestinal: Normal Bowel Sounds, Non Tender, Soft Neurologic/Psychiatric: Alert, Oriented x3 Procedures/Interventions Date of ETT Placement: Apr 12, 2018 Time of ETT Placement: 0406 Progress/Results/Core Measures Results/Orders Lab Results Laboratory Tests Test 05/27/18 10:24 Range/Units White Blood Count 6.1 4.3-11.0 10^3/uL Red Blood Count 4.85 4.35-5.85 10^6/uL Hemoglobin 12.4 11.5-16.0 G/DL Hematocrit 37 35-52 % Mean Corpuscular Volume 76 L 80-99 FL Mean Corpuscular Hemoglobin 26 25-34 PG Mean Corpuscular Hemoglobin Concent 34 32-36 G/DL Red Cell Distribution Width 15.3 H 10.0-14.5 % Platelet Count 325 130-400 10^3/uL Mean Platelet Volume 9.3 7.4-10.4 FL Neutrophils (%) (Auto) 52 42-75 % Lymphocytes (%) (Auto) 38 12-44 % Monocytes (%) (Auto) 8 0-12 % Eosinophils (%) (Auto) 3 0-10 % Basophils (%) (Auto) 0 0-10 % Neutrophils # (Auto) 3.1 1.8-7.8 X 10^3 Lymphocytes # (Auto) 2.3 1.0-4.0 X 10^3 Monocytes # (Auto) 0.5 0.0-1.0 X 10^3 Eosinophils # (Auto) 0.2 0.0-0.3 10^3/uL Basophils # (Auto) 0.0 0.0-0.1 10^3/uL Prothrombin Time 11.2 L 12.2-14.7 SEC INR Comment 0.8 0.8-1.4 Activated Partial Thromboplast Time 29 24-35 SEC Sodium Level 133 L 135-145 MMOL/L Potassium Level 3.5 L 3.6-5.0 MMOL/L Chloride Level 98 98-107 MMOL/L Carbon Dioxide Level 20 L 21-32 MMOL/L Anion Gap 15 H 5-14 MMOL/L Blood Urea Nitrogen 7 7-18 MG/DL Creatinine 0.78 0.60-1.30 MG/DL Estimat Glomerular Filtration Rate > 60 BUN/Creatinine Ratio 9 Glucose Level 437 *H 70-105 MG/DL Calcium Level 9.2 8.5-10.1 MG/DL Corrected Calcium 9.4 8.5-10.1 MG/DL Magnesium Level 2.7 H 1.8-2.4 MG/DL Total Bilirubin 0.3 0.1-1.0 MG/DL Aspartate Amino Transf (AST/SGOT) 15 5-34 U/L Alanine Aminotransferase (ALT/SGPT) 20 0-55 U/L Alkaline Phosphatase 148 H 40-136 U/L Myoglobin 9.6 L 10.0-92.0 NG/ML Troponin I < 0.028 <0.028 NG/ML B-Type Natriuretic Peptide 23.5 <100.0 PG/ML Total Protein 7.8 6.4-8.2 GM/DL Albumin 3.8 3.2-4.5 GM/DL My Orders Orders - JAMMIEALBERTINA Cbc With Automated Diff (05/27/18 10:44) Magnesium (05/27/18 10:44) Chest 1 View, Ap/Pa Only (05/27/18 10:44) Ekg Tracing (05/27/18 10:44) Cardiac Profile 1 (05/27/18 10:44) Comprehensive Metabolic Panel (05/27/18 10:44) Myoglobin Serum (05/27/18 10:44) Protime With Inr (05/27/18 10:44) Partial Thromboplastin Time (05/27/18 10:44) O2 (05/27/18 10:44) Monitor-Rhythm Ecg Trace Only (05/27/18 10:44) Lipid Panel (05/28/18 06:00) Aspirin Chewable Tablet (Baby Aspirin Ch (05/27/18 10:45) Nitroglycerin 0.4 Mg Btl 25's (Nitrostat (05/27/18 10:45) Saline Lock/Iv-Start (05/27/18 10:44) BNP (05/27/18 10:44) Insulin (Regular) Human (Humulin R (Per (05/27/18 11:30) Morphine Injection (Morphine Injection (05/27/18 13:45) Medications Given in ED Current Medications Medications Dose Ordered Sig/Tomasz Route Start Time Stop Time Status Last Admin Dose Admin Aspirin 162 mg ONCE ONCE PO 05/27/18 10:45 05/27/18 10:46 DC 05/27/18 10:55 162 MG Insulin Human Regular 15 unit ONCE ONCE SC 05/27/18 11:30 05/27/18 11:31 DC 05/27/18 11:50 15 UNIT Nitroglycerin 0.4 mg UD PRN SL 05/27/18 10:45 05/27/18 11:25 0.4 MG Vital Signs/I&O 05/27/18 10:04 Temp 96.9 Pulse 93 Resp 22 B/P (MAP) 137/90 (106) Pulse Ox 98 O2 Delivery Room Air Blood Pressure Mean: 106 Progress Progress Note : Time: 10:53 Progress Note Patient's anginal pains have picked up in intensity since discontinuing Ranexa and possibly some of her other psych medications after her intentional overdose 04/13/18. We'll start with nitroglycerin give her 180 mg of aspirin since she said she took 324 mg this morning. ED ACS 6 points. Low risk by the EDACS Score. If the patient also has: (1) EKG without new ischemic changes and (2) negative initial and 2-hour troponins, then this patient is safe for discharge to early outpatient follow-up investigation (or proceed to earlier inpatient testing). If EKG with ischemic changes or positive troponin, they are not low risk and require normal risk stratification. Type 2 diabetes, smoking, hypertension, hyperlipidemia history of coronary artery disease with stent placed in the LAD recently. Angiogram by Dr. Hernandez and November 2017 did not demonstrate severe focal stenosis. February 2018 Dr. West put 2 more stents in the mid LAD. At that time echocardiogram was recommended however the patient never got it done. Initial ECG Impression Date: May 27, 2018 Initial ECG Impression Time: 10:15 Initial ECG Rate: 85 Initial ECG Rhythm: Normal Sinus Initial ECG Intervals: Normal Initial ECG Impression: Normal Initial ECG Comparisson: Unchanged Comment No ST elevation or depression. Diagnostic Imaging Diagonstic Imaging: Xray Plain Films/CT/US/NM/MRI: chest (1v) Comments [facility], [place] NAME: BLAS QUEVEDO [facility] REC#: [id number] PT STATUS: REG ER : 1980 PHYSICIAN: ALBERTINA AGUDELO MD ADMIT DATE: 05/27/18/ER Draft Date of Exam:05/27/18 CHEST 1 VIEW, AP/PA ONLY INDICATION: Chest pain. TIME OF EXAM: 11:08 AM. COMPARISON: 05/25/2018. FINDINGS: The heart size is normal. The pulmonary vascularity is unremarkable. The lungs are clear. No infiltrate, effusion, or pneumothorax is detected. IMPRESSION: No acute cardiopulmonary process is detected. Dictated on workstation # [id number] Dict: 05/27/18 1126 Trans: 05/27/18 1129 [id number] Interpreted by: ANGELICA JOYCE MD Electronically signed by: Consults : Consulting Physician: ALBER BENOIT MD FACP FAC CCDS Consults Notes Discussed case lab EKG imaging findings with Dr. Patel and he says that we'll going give her some morphine for her pain put her in and plan to do a heart catheter in the morning. Continue home meds. Departure Communication (Admissions) Time/Spoke to Admitting Phy: 13:35 Discussed case lab EKG imaging findings with Dr. Medel she agrees to observe the patient overnight. Time/Spoke to Consulting Phy: 13:30 Discussed case lab EKG imaging findings with Dr. Benoit he agrees with morphine and plan to do a heart catheter morning. Impression Primary Impression: Chest pain Qualified Codes: R07.9 - Chest pain, unspecified Additional Impressions: CAD (coronary artery disease) Qualified Codes: I25.110 - Atherosclerotic heart disease of [place] coronary artery with unstable angina pectoris ACS (acute coronary syndrome) Unstable angina Disposition: ADMITTED INPATIENT Condition: Stable Admissions Decision to Admit Reason: Admit from ER (General) Decision to Admit/Date: May 27, 2018 Time/Decision to Admit Time: 13:21 Departure-Patient Inst. Referrals: [facility] (PCP/Family) Primary Care Physician Copy Copies To 1: HANG FELIPE TITUS J May 27, 2018 10:50
[2018-05-27] MEDS: NITROGLYCERIN 0.4 MG SL TABS BTL 25'S SL PRN ×4 (10:56→22:19)
[2018-05-27 10:58] LABS: INR 0.8 (0.8-1.4); PROTHROMBIN TIME PATIENT 11.2 SEC (12.2-14.7)
[2018-05-27 11:09] LABS: ALANINE AMINOTRANSFERASE 20 U/L (0-55); ALBUMIN 3.8 GM/DL (3.2-4.5); ALKALINE PHOSPHATASE 148 U/L (40-136); BILIRUBIN,TOTAL 0.3 MG/DL (0.1-1.0); BUN/CREATININE RATIO 9; CALCIUM 9.2 MG/DL (8.5-10.1); CARBON DIOXIDE 20 MMOL/L (21-32); CHLORIDE 98 MMOL/L (98-107); CREATININE SERUM 0.78 MG/DL (0.60-1.30); GFR ESTIMATED > 60; MAGNESIUM 2.7 MG/DL (1.8-2.4); POTASSIUM 3.5 MMOL/L (3.6-5.0); SODIUM 133 MMOL/L (135-145); TOTAL PROTEIN 7.8 GM/DL (6.4-8.2)
[2018-05-27 11:11] LABS: GLUCOSE 437 MG/DL (70-105)
[2018-05-27 11:21] LABS: MYOGLOBIN SERUM 9.6 NG/ML (10.0-92.0)
[2018-05-27] MEDS ORDERED: inSUlin (REGULAR) HUMAN 1 UNIT/0.01 ML (CHARGE PER UNIT) SC ONE (11:30)
--- NOTE | 2018-05-27 11:30 | Diagnostic Imaging Report ---
INDICATION: Chest pain. TIME OF EXAM: 11:08 AM. COMPARISON: 05/25/2018. FINDINGS: The heart size is normal. The pulmonary vascularity is unremarkable. The lungs are clear. No infiltrate, effusion, or pneumothorax is detected. IMPRESSION: No acute cardiopulmonary process is detected. Dictated by: Dictated on workstation # [id number]
[2018-05-27] MEDS ORDERED: morphine INJ 10 MG/ML 1ML (SYR OR VIAL) IVP ONE (13:45)
--- OUTSIDE RECORDS SUMMARY | 2018-05-27 13:57 | XMS REPORT | Clinical Summary ---
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 If you do not see the information that you expected, contact Release of Information in the Health Information Management department at [phone] for further assistance in locating additional records.[facility] Allergies Not on File Medications Not on [...] ID Type Phone Address Plan / Group [facility] MEDICAID [facility] xxxxxxxxxxx Medicaid [employer] [place] Advance Directives Patient has advance care planning documents on file. For more information, please contact: [facility] [address] [place] [address]
--- NOTE | 2018-05-27 14:24 | Consultation-Cardiology ---
HPI-Cardiology Cardiology Consultation: Date of Consultation 05/27/18 Time Seen by a Provider: 14:45 Date of Admission 05-27-2018 Attending Physician Deepali Medel DO Admitting Physician Leyda Muñoz MD Consulting Physician Karan Benoit MD HPI: Chief Complaint: Chest pain Ms. Ho is a 38 year old female admitted to from the ED with c/o CP. Her significant other is at the bedside, frequently talking over her. She reports she has been having episodes of left sided, sharp, stabbing chest pain over the last 3 days. She reports the episodes last for several minutes, occur several times during the day. They are not related to activity; the discomfort can occur while lying or sitting. She does not report diaphoresis, but her significant other reports she has been diaphoretic at times. She reports she has chronic mild to mod ankle/foot swelling which improves with elevation. No c /o syncope or near syncope. Her significant other is asking for pain medications for her. She reports chronic mild to mod dyspnea. She reports chronic nausea for which she is taking "medications so I don't throw up". She reports episodes of chills at home, but no fever. She denies any street drug use. She denies any ETOH use. She reports she has been compliant with her medications. Review of Systems-Cardiology Review of Systems Constitutional: No chills, No fever; malaise Eyes: No vision change Ears/Nose/Throat: No recent hearing loss; throat pain (following intubation at time of previous admission) Respiratory: As described under HPI Cardiovascular: As described under HPI Gastrointestinal: nausea, vomiting Genitourinary: No dysuria, No hematuria Musculoskeletal: other (generalized body aches) Skin: No dryness, No rash, No ulcerations Psychiatric/Neurological: anxiety, depression; No seizure, No focal weakness, No syncope Hematologic: No bleeding abnormalities [id number] Hx Patient Social History Alcohol Use: Denies Use Recreational Drug Use: Yes Drug of Choice: RX DRUG OVERDOSES Smoking Status: Former Smoker Type Used: Cigarettes 2nd Hand Smoke Exposure: Yes Recent Foreign Travel: No Recent Infectious Disease Expo: No Hospitalization with Isolation: Denies Immunizations Up To Date Tetanus Booster (TDap): Unknown Date of Pneumonia Vaccine: September 09, 2016 Past Medical History PMH As described under Assessment. Family Medical History Family Medical History: She reports her mother and father both had premature CAD. Family History: Cardiovascular disease 19 FATHER, Onset:Unknown 19 MOTHER, Onset:Unknown Diabetes mellitus 19 FATHER 19 MOTHER Allergies and Home Medications Allergies Coded Allergies: coconut (Verified Allergy, Severe, anaphylactic reaction, 07/11/17) ketorolac (Unverified Allergy, Unknown, 08/19/15) Home Medications Albuterol Sulfate 1 Puff Puff, 2 PUFF INH Q4H PRN for SHORTNESS OF BREATH, ( Reported) 1 PUFF = 90 MCG Aspirin 81 Mg Tab.chew, 81 MG PO DAILY, (Reported) Clonazepam 0.5 Mg Tablet, 0.5 MG PO BID, (Reported) Clopidogrel Bisulfate 75 Mg Tablet, 75 MG PO DAILY, (Reported) Gabapentin 300 Mg Capsule, 300 MG PO TID, (Reported) Insulin Detemir 100 Unit/1 Ml Insuln.pen, 25 UNIT SQ BID, (Reported) Insulin Lispro 100 Unit/1 Ml Insuln.pen, 20 UNIT SQ TIDAC, (Reported) Liraglutide 0.6 Mg/0.1 Ml Pen.injctr, 1.8 MG SQ DAILY, (Reported) Metformin HCl 1,000 Mg Tablet, 1,000 MG PO BID, (Reported) LAST FILLED #60 18 Metoprolol Succinate 50 Mg Tab.er.24h, 50 MG PO BID, (Reported) LAST FILLED #60 03-30-18 Ondansetron 8 Mg Tab.rapdis, 8 MG PO Q6H PRN for NAUSEA/VOMITING-1ST LINE, ( Reported) Physical Exam-Cardiology Physical Exam Vital Signs/I&O 05/27/18 05/27/18 05/28/18 05/28/18 20:18 22:20 00:42 01:00 Temp 97.3 Pulse 92 87 87 Resp 16 B/P (MAP) 118/73 (88) 108/62 (77) Pulse Ox 98 98 O2 Delivery Room Air Room Air 05/28/18 05/28/18 05/28/18 03:28 06:45 07:00 Temp 98.1 Pulse 96 94 Resp 18 B/P (MAP) 122/70 (87) Pulse Ox 100 99 O2 Delivery Room Air Room Air 05/28/18 00:00 Intake Total 600 ml Balance 600 ml Capillary Refill : Less Than 3 Seconds Constitutional: well-developed, well-nourished HEENT: PERRL, hearing is well preserved; No oral hygience is good (poor dentition) Neck: No carotid bruit Respiratory: No accessory muscle use, No respiratory distress; chest expansion is symmetric, chest is bilaterally symmetric, lungs clear to auscultation Cardiovascular: regular rate-rhythm; No JVD; S1 and S2 Gastrointestinal: No tender; soft, round, audible bowel sounds Rectal: deferred Extremities: no lower extremity edema bilateral Neurologic/Psychiatric: grossly intact, power is 5/5 both on sides Skin: No rash, No ulcerations; other (bruising to inner left FA) Data Review Labs Laboratory Tests 05/27/18 10:24: White Blood Count 6.1, Red Blood Count 4.85, Hemoglobin 12.4, Hematocrit 37, Mean Corpuscular Volume 76L, Mean Corpuscular Hemoglobin 26, Mean Corpuscular Hemoglobin Concent 34, Red Cell Distribution Width 15.3H, Platelet Count 325, Mean Platelet Volume 9.3, Neutrophils (%) (Auto) 52, Lymphocytes (%) (Auto) 38, Monocytes (%) (Auto) 8, Eosinophils (%) (Auto) 3, Basophils (%) (Auto) 0, Neutrophils # (Auto) 3.1, Lymphocytes # (Auto) 2.3, Monocytes # (Auto) 0.5, Eosinophils # (Auto) 0.2, Basophils # (Auto) 0.0, Prothrombin Time 11.2L, INR Comment 0.8, Activated Partial Thromboplast Time 29, Sodium Level 133L, Potassium Level 3.5L, Chloride Level 98, Carbon Dioxide Level 20L, Anion Gap 15H , Blood Urea Nitrogen 7, Creatinine 0.78, Estimat Glomerular Filtration Rate > 60, BUN/Creatinine Ratio 9, Glucose Level 437*H, Calcium Level 9.2, Corrected Calcium 9.4, Magnesium Level 2.7H, Total Bilirubin 0.3, Aspartate Amino Transf ( AST/SGOT) 15, Alanine Aminotransferase (ALT/SGPT) 20, Alkaline Phosphatase 148H , Myoglobin 9.6L, Troponin I < 0.028, B-Type Natriuretic Peptide 23.5, Total Protein 7.8, Albumin 3.8 05/27/18 13:56: Glucometer 293H 05/27/18 15:06: Glucometer 214H 05/27/18 16:38: Troponin I < 0.028 05/27/18 20:49: Glucometer 105 05/27/18 22:30: Troponin I < 0.028 05/28/18 05:45: White Blood Count 7.9, Red Blood Count 4.55, Hemoglobin 11.2L, Hematocrit 35, Mean Corpuscular Volume 77L, Mean Corpuscular Hemoglobin 25, Mean Corpuscular Hemoglobin Concent 32, Red Cell Distribution Width 15.3H, Platelet Count 255, Mean Platelet Volume 9.6, Neutrophils (%) (Auto) 64, Lymphocytes (%) (Auto) 29, Monocytes (%) (Auto) 5, Eosinophils (%) (Auto) 2, Basophils (%) (Auto) 0, Neutrophils # (Auto) 5.0, Lymphocytes # (Auto) 2.3, Monocytes # (Auto) 0.4, Eosinophils # (Auto) 0.2, Basophils # (Auto) 0.0, Prothrombin Time 11.8L, INR Comment 0.9, Activated Partial Thromboplast Time 25, Sodium Level 134L, Potassium Level 3.7, Chloride Level 103, Carbon Dioxide Level 19L, Anion Gap 12 , Blood Urea Nitrogen 16, Creatinine 0.61, Estimat Glomerular Filtration Rate > 60, BUN/Creatinine Ratio 26, Glucose Level 269H, Calcium Level 8.5, Corrected Calcium 9.1, Total Bilirubin 0.4, Aspartate Amino Transf (AST/SGOT) 21, Alanine Aminotransferase (ALT/SGPT) 20, Alkaline Phosphatase 112, Total Protein 6.3L, Albumin 3.2, Triglycerides Level 695H, Cholesterol Level 320H, LDL Cholesterol Direct 145H, VLDL Cholesterol 139H, HDL Cholesterol 33L Radiology NAME: [facility] REC#: [id number] PT STATUS: REG ER : 1980 PHYSICIAN: ALBERTINA AGUDELO MD ADMIT DATE: 05/27/18/ER Draft Date of Exam:05/27/18 CHEST 1 VIEW, AP/PA ONLY INDICATION: Chest pain. TIME OF EXAM: 11:08 AM. COMPARISON: 05/25/2018. FINDINGS: The heart size is normal. The pulmonary vascularity is unremarkable. The lungs are clear. No infiltrate, effusion, or pneumothorax is detected. IMPRESSION: No acute cardiopulmonary process is detected. Dictated on workstation # [id number] Dict: 05/27/18 1126 Trans: 05/27/18 [id number] [id number] Interpreted by: ANGELICA JOYCE MD Electronically signed by: ECG Impression ECG Initial ECG Rhythm: Normal Sinus A/P-Cardiology Assessment/Admission Diagnosis Chest pain of undetermined etiology H/O Intubation and mech vent in Mar 2018 for amitriptyline and benzodiazepine overdose. Has had a sore throat since - being managed by her pcp H/O chronic non-specific intermittent chest discomfort Palpitations - no c/o CAD. Card cath of 10/27/17 showed 90% mid-distal LAD stenosis that was successfully stented with Alp Xience 2.25x15 mm stent; multiple 50% stenoses in the LAD; 60% stenosis in prox D2; mild to mod diff disease of LCX; 30-40% distal RCA; LVEF 65%; LVEDP 23 mmHg. Card cath on 12/02/17 showed patent LAD stnet and no significant change to CAD. Most recent cardiac cath of Mar 08, [address] West showed diffuse disease in the ostium/prox LAD of 70-80%. Patent stent in the mid LAD. Distal to the mid LAD stent there was mod to severe stenosis of 70% that was stented with Xience Madonna 2.25 x 15 mm AIDA distal to the previous mid LAD stent. Xience Madonna 2.5 x 38 mm AIDA placed from the ostial LAD with a small overlap with the previous mid LAD stent. Pneumonia in October 2017 Chronic diastolic CHF - clinically compensated Pulm nodule being followed by Dr Arroyo. CT chest angio on 03-09-18 showed mildly prominent bilat hilar lymph nodes. Stable 7 mm groundglass micronodular density within the left lower lobe Echocardiogram of 10-25-17 showed LVEF 55-60%. Mild TR. PASP 30 mmHg Bilat leg swelling likely due to venous insufficiency and/or ac sim CHF. Bilat leg venous Duplex of 10/23/17 did not show any DVT DM II Chronic tobacco use - cessation advised Discussion and Recomendations Chest pain of undetermined etiology is a 38 year old female with a known h/o CAD and multiple risk factors as listed above Based on her symptoms, h/o and risk factors we advise further cardiac work up with a cardiac cath. We have discussed the procedure, risks, benefits and potential complications of cardiac cath with possible ad hoc coronary intervention. She provides informed consent. We will proceed tomorrow or sooner if needed. Resume home medications including ASA, Plavix, statin and BB Management of DM 2 is per medical services Monitor lab Monitor on tele Further recs will be based on her hospital course We would like to thank the medical services for this consult Clinical Quality Measures AMI/AHF: ASA po Prior to arrival: Yes RALPH BLANCO May 27, 2018 14:24
--- NOTE | 2018-05-27 14:46 | NUR ---
BLAS QUEVEDO admitted to room 412-1, with an admitting diagnosis of chest pain, on 05/27/18 from ED via wheel chair, accompanied by staff and family.BLAS QUEVEDO introduced to surroundings, call light, bed controls, phone, TV, temperature control, lights, meal times, smoking policy, visitor policy, side rail policy, bathrooms and showers. Patient Rights given to patient in the handbook. BLAS QUEVEDO verbalizes understanding that [facility] is not responsible for the loss or damage to any personal effects or valuables that are kept in the patients posession during their hospitalization. The following Patient Care Plans and discharge were discussed with the patient. BLAS QUEVEDO verbalizes understanding of Interdisciplinary Patient Education.
[2018-05-27] MEDS ORDERED: ACETAMINOPHEN 500 MG TAB (TYLENOL) PO PRN (15:15)
[2018-05-27] MEDS ORDERED: hydrOXYzine (VISTARIL) 25 MG CAP PO PRN (15:15)
[2018-05-27] MEDS ORDERED: ONDANSETRON 4 MG/2 ML (SDV) Z0FRAN IV PRN (15:30)
[2018-05-27] MEDS ORDERED: CATHETER FLUSH 10 ML SYR IV PRN (15:30)
[2018-05-27] MEDS ORDERED: ONDA8TAB13 PO (16:00)
[2018-05-27] MEDS ORDERED: CLON0.5T13 PO (16:00)
--- NOTE | 2018-05-27 16:01 | NUR ---
PATIENT LISTED WHAT MEDICATIONS SHE IS CURRENTLY TAKING TO ME. I HAD A LIST SENT OVER FROM [facility] TO VERIFY DOSES AND LAST FILL DATES. SHE STATES SEVERAL OF HER MEDS ARE CURRENTLY ON HOLD AND HAVE BEEN SINCE MARCH. I DID NOT INCLUDE THOSE MEDICATIONS. [facility] FILLED: 04-29-18 PLAVIX 75MG DAILY #30 04-25-18 ZOFRAN ODT 8MG Q6H PRN #20 04-23-18 AUGMENTIN 875/125MG BID X 5 DAYS (FINISHED) 04-23-18 NYSTATIN SUSP 4ML QID X 14 DAYS (FINISHED) 04-23-18 LIDOCAINE VISCOUS 2% 5ML SWISH AND SPIT Q1H PRN (FINISHED) 04-18-18 GABAPENTIN 300MG TID #90 04-18-18 CLONAZEPAM 0.5MG BID #56 03-20-18 AMITRIPTYLINE 25MG HS #30 (DID NOT STATE SHE IS TAKING, PAST DUE FOR REFILL) 03-15-18 IMDUR DAILY #30 (STATES IT IS CURRENTLY ON HOLD) 03-13-18 PROTONIX 40MG DAILY #30 (STATES CURRENTLY ON HOLD) 03-11-18 HYDROXYZINE HCL 25MG Q8H PRN #90 (CURRENTLY ON HOLD) 03-30-18 METOPROLOL ER 50MG BID #60 03-30-18 LIPITOR 80MG DAILY #30 (CURRENTLY ON HOLD) 03-30-18 ZANTAC 150MG HS #30 (DID NOT STATE SHE WAS TAKING IT, PAST DUE FOR REFILL) 03-30-18 METFORMIN 1000MG BID #60 SHE TAKES ASPIRIN 81MG DAILY OTC. SHE ALSO STATES SHE USES LEVEMIR, NOVOLOG, AND VICTOZA. THERE IS AN ALBUTEROL INHALER ON FILE THAT I LEFT ON NEEDED.
[2018-05-27] MEDS: morphine INJ 4 MG/ML 1 ML (VIAL/SYRINGE) IV PRN ×2 (16:18→22:19)
[2018-05-27] MEDS: inSUlin ASPART (NovoLOG) 1 UNIT/0.01 ML (CHARGE PER UNIT) SC SCH ×2 (16:21→20:54)
[2018-05-27] MEDS ORDERED: inSUlin ASPART (NovoLOG) 1 UNIT/0.01 ML (CHARGE PER UNIT) SC SCH (17:00)
[2018-05-27] MEDS ORDERED: RT-ALBUTEROL/IPRATROPIUM 3 ML (DUONEB) VIAL INH PRN (17:00)
[2018-05-27] MEDS ORDERED: KCL 20 MEQ TAB (K-DUR) PO NR (17:15)
--- NOTE | 2018-05-27 17:15 | Consultation-Cardiology ---
HPI-Cardiology Cardiology Consultation: Date of Consultation 05/27/18 Time Seen by a Provider: 17:00 Date of Admission Attending Physician Deepali Medel DO Admitting Physician Leyda Muñoz MD Consulting Physician ALBER PRICE MD, MA, FACP, FACC, FSCAI, CCDS HPI: Chief Complaint: CC: Chest pain HPI: Ms. Ho is a 38 year old female admitted to from the ED with c/o CP. Her significant other is at the bedside, frequently talking over her. She reports she has been having episodes of left sided, sharp, stabbing chest pain over the last 3 days. She reports the episodes last for several minutes, occur several times during the day. They are not related to activity; the discomfort can occur while lying or sitting. She does not report diaphoresis, but her significant other reports she has been diaphoretic at times. She reports she has chronic mild to mod ankle/foot swelling which improves with elevation. No c /o syncope or near syncope. Her significant other is asking for pain medications for her. She reports chronic mild to mod dyspnea. She reports chronic nausea for which she is taking "medications so I don't throw up". She reports episodes of chills at home, but no fever. She denies any street drug use. She denies any ETOH use. She reports she has been compliant with her medications. Review of Systems-Cardiology Review of Systems Constitutional: No chills, No fever; malaise Eyes: No vision change Ears/Nose/Throat: No recent hearing loss; throat pain (following intubation at time of previous admission) Respiratory: As described under HPI Cardiovascular: As described under HPI Gastrointestinal: nausea, vomiting Genitourinary: No dysuria, No hematuria Musculoskeletal: other (generalized body aches) Skin: No dryness, No rash, No ulcerations Psychiatric/Neurological: anxiety, depression; No seizure, No focal weakness, No syncope Hematologic: No bleeding abnormalities HJM-Ydffhn-Wcujrl Hx Patient Social History Alcohol Use: Denies Use Recreational Drug Use: Yes Drug of Choice: RX DRUG OVERDOSES Smoking Status: Former Smoker Type Used: Cigarettes 2nd Hand Smoke Exposure: Yes Recent Foreign Travel: No Recent Infectious Disease Expo: No Hospitalization with Isolation: Denies Physical Abuse Screen: No Sexual Abuse: No Immunizations Up To Date Tetanus Booster (TDap): Unknown Date of Pneumonia Vaccine: September 09, 2016 Date of Influenza Vaccine: Mar 26, 2019 Past Medical History PMH As described under Assessment. Family Medical History Family Medical History: She reports her mother and father both had premature CAD. Family History: Cardiovascular disease 19 FATHER, Onset:Unknown 19 MOTHER, Onset:Unknown Diabetes mellitus 19 FATHER 19 MOTHER Allergies and Home Medications Allergies Coded Allergies: coconut (Verified Allergy, Severe, anaphylactic reaction, 07/11/17) ketorolac (Unverified Allergy, Unknown, 08/19/15) Home Medications Albuterol Sulfate 1 Puff Puff, 2 PUFF INH Q4H PRN for SHORTNESS OF BREATH, ( Reported) 1 PUFF = 90 MCG Aspirin 81 Mg Tab.chew, 81 MG PO DAILY, (Reported) Clonazepam 0.5 Mg Tablet, 0.5 MG PO BID, (Reported) Clopidogrel Bisulfate 75 Mg Tablet, 75 MG PO DAILY, (Reported) Gabapentin 300 Mg Capsule, 300 MG PO TID, (Reported) Insulin Detemir 100 Unit/1 Ml Insuln.pen, 25 UNIT SQ BID, (Reported) Insulin Lispro 100 Unit/1 Ml Insuln.pen, 20 UNIT SQ TIDAC, (Reported) Liraglutide 0.6 Mg/0.1 Ml Pen.injctr, 1.8 MG SQ DAILY, (Reported) Metformin HCl 1,000 Mg Tablet, 1,000 MG PO BID, (Reported) LAST FILLED #60 03-30-18 Metoprolol Succinate 50 Mg Tab.er.24h, 50 MG PO BID, (Reported) LAST FILLED #60 12-15-18 Ondansetron 8 Mg Tab.rapdis, 8 MG PO Q6H PRN for NAUSEA/VOMITING-1ST LINE, ( Reported) Patient Home Medication List Home Medication List Reviewed: Yes Physical Exam-Cardiology Physical Exam Vital Signs/I&O 05/27/18 05/27/18 05/27/18 05/27/18 10:04 14:50 14:54 15:09 Temp 96.9 98.1 98.1 Pulse 93 82 87 87 Resp 22 15 20 20 B/P (MAP) 137/90 (106) 124/91 (102) 129/84 (99) 129/84 Pulse Ox 98 99 100 100 O2 Delivery Room Air Room Air Room Air Room Air 05/27/18 05/27/18 05/27/18 05/27/18 15:28 15:30 16:18 16:18 Pulse 83 87 Pulse Ox 100 100 O2 Delivery Room Air Room Air FiO2 21 Capillary Refill : Less Than 3 Seconds Constitutional: well-developed, well-nourished HEENT: PERRL, hearing is well preserved; No oral hygience is good (poor dentition) Neck: No carotid bruit Respiratory: No accessory muscle use, No respiratory distress; chest expansion is symmetric, chest is bilaterally symmetric, lungs clear to auscultation Cardiovascular: regular rate-rhythm; No JVD; S1 and S2 Gastrointestinal: No tender; soft, round, audible bowel sounds Rectal: deferred Extremities: no lower extremity edema bilateral Neurologic/Psychiatric: grossly intact, power is 5/5 both on sides Skin: No rash, No ulcerations; other (bruising to inner left FA) Data Review Labs Laboratory Tests 05/27/18 10:24: White Blood Count 6.1, Red Blood Count 4.85, Hemoglobin 12.4, Hematocrit 37, Mean Corpuscular Volume 76L, Mean Corpuscular Hemoglobin 26, Mean Corpuscular Hemoglobin Concent 34, Red Cell Distribution Width 15.3H, Platelet Count 325, Mean Platelet Volume 9.3, Neutrophils (%) (Auto) 52, Lymphocytes (%) (Auto) 38, Monocytes (%) (Auto) 8, Eosinophils (%) (Auto) 3, Basophils (%) (Auto) 0, Neutrophils # (Auto) 3.1, Lymphocytes # (Auto) 2.3, Monocytes # (Auto) 0.5, Eosinophils # (Auto) 0.2, Basophils # (Auto) 0.0, Prothrombin Time 11.2L, INR Comment 0.8, Activated Partial Thromboplast Time 29, Sodium Level 133L, Potassium Level 3.5L, Chloride Level 98, Carbon Dioxide Level 20L, Anion Gap 15H , Blood Urea Nitrogen 7, Creatinine 0.78, Estimat Glomerular Filtration Rate > 60, BUN/Creatinine Ratio 9, Glucose Level 437*H, Calcium Level 9.2, Corrected Calcium 9.4, Magnesium Level 2.7H, Total Bilirubin 0.3, Aspartate Amino Transf ( AST/SGOT) 15, Alanine Aminotransferase (ALT/SGPT) 20, Alkaline Phosphatase 148H , Myoglobin 9.6L, Troponin I < 0.028, B-Type Natriuretic Peptide 23.5, Total Protein 7.8, Albumin 3.8 05/27/18 13:56: Glucometer 293H 05/27/18 15:06: Glucometer 214H 05/27/18 16:38: Laboratory Tests 05/27/18 10:24 A/P-Cardiology Assessment/Admission Diagnosis Chest pain of undetermined etiology H/o Intubation and mech vent in Mar 2018 for amitriptyline and benzodiazepine overdose. Has had a sore throat since - being managed by her pcp H/o chronic non-specific intermittent chest discomfort H/o palpitations, none recently CAD. Card cath of 10/27/17 showed 90% mid-distal LAD stenosis that was successfully stented with Alp Xience 2.25x15 mm stent; multiple 50% stenoses in the LAD; 60% stenosis in prox D2; mild to mod diff disease of LCX; 30-40% distal RCA; LVEF 65%; LVEDP 23 mmHg. Card cath on 12/02/17 showed patent LAD stnet and no significant change to CAD. Most recent cardiac cath of Mar 08, [address] West showed diffuse disease in the ostium/prox LAD of 70-80%. Patent stent in the mid LAD. Distal to the mid LAD stent there was mod to severe stenosis of 70% that was stented with Xience Madonna 2.25 x 15 mm AIDA distal to the previous mid LAD stent. Xience Madonna 2.5 x 38 mm AIDA placed from the ostial LAD with a small overlap with the previous mid LAD stent. Pneumonia in October 2017 Chronic diastolic CHF - clinically compensated Pulm nodule being followed by Dr Arroyo. CT chest angio on 03-09-18 showed mildly prominent bilat hilar lymph nodes. Stable 7 mm groundglass micronodular density within the left lower lobe Echocardiogram of 10-25-17 showed LVEF 55-60%. Mild TR. PASP 30 mmHg Bilat leg swelling likely due to venous insufficiency and/or ac sim CHF. Bilat leg venous Duplex of 10/23/17 did not show any DVT DM II Chronic tobacco use - cessation advised Discussion and Recomendations Chest pain of undetermined etiology is a 38 year old female with a known h/o CAD and multiple risk factors as listed above Based on her symptoms, h/o and risk factors we advise further cardiac work up with a cardiac cath. We have discussed the procedure, risks, benefits and potential complications of cardiac cath with possible ad hoc coronary intervention. She provides informed consent. We will proceed tomorrow or sooner if needed. Resume home medications including ASA, Plavix, statin and BB Management of DM 2 is per medical services Monitor lab Monitor on tele Further recs will be based on her hospital course We would like to thank the medical services for this consult Clinical Quality Measures AMI/AHF: ASA po Prior to arrival: Yes DVT/VTE Risk/Contraindication: Risk Factor Score Per Nursin RFS Level Per Nursing on Admit: 1=Low/No VTE PPX ALBER PRICE MD FACP FACC CCDS May 27, 2018 17:14
[2018-05-27] MEDS: RT-ALBUTEROL/IPRATROPIUM 3 ML (DUONEB) VIAL INH SCH (20:18)
--- NOTE | 2018-05-27 20:54 | NUR ---
[facility] notified this RN that the patient states her blood sugar is low. This RN goes in to pass evening meds and patient states that her blood sugar is to low and it needs to be over 200. Current blood sugar is 105. This RN educates patient on healthy blood sugar ranges. Patient gets upset and looks out the window. Patient refuses to acknowledge this RN and refuses to answer any questions. Patient is given evening medications. Patient states she doesn't take lipitor at home. This RN educates patient on the uses for lipitor. Patient takes the medication and will not speak anymore. This RN tells the patient to let us know if she needs anything. Patient just sits there looking out the window. This RN exits the room.
[2018-05-27] MEDS: CATHETER FLUSH 10 ML SYR IV SCH (20:55)
[2018-05-27] MEDS ORDERED: meTOproloL SUCCINATE 50 MG (TOPROL XL) TAB PO SCH (21:00)
[2018-05-27] MEDS ORDERED: ATORVASTATIN 80 MG (LIPITOR) TABLET PO SCH (21:00)
[2018-05-27] MEDS ORDERED: meTOprolol TARTRATE 50 MG (LOPRESSOR) TAB PO SCH (21:00)
[2018-05-27] MEDS ORDERED: inSUlin DETERMIR 1 UNIT/0.01 ML (LEVEMIR) CHARGE PER UNIT SQ SCH (21:00)
[2018-05-27] MEDS ORDERED: GABAPENTIN 300 MG (NEURONTIN) CAP PO SCH (21:00)
--- NOTE | 2018-05-27 21:45 | NUR ---
Dr. Medel calls this RN in reference to the patient's paging her repeatedly. Dr. Medel asks this RN what is going on with the patient. The previous note is explained to Dr. Medel. Dr. Medel orders to discontinue all insulins. Order is repeated and confirmed.
--- NOTE | 2018-05-27 23:26 | NUR ---
Patients family by the name of Arletta calls to check up on patient. This RN calls back at 00:05. Family member is advised that no information can be shared because there is no password on the account.
[2018-05-28] VITALS (9 sets, daily range): BP systolic 101–125; BP diastolic 62–91
--- NOTE | 2018-05-28 00:51 | NUR ---
A man stating that it is the patient's calls to check on patient. This RN states that no information can be shared because there is no password on the account.
[2018-05-28] MEDS ORDERED: NS IV 1000 ML 1,000 ML IV SCH ×2 (06:00→09:46)
[2018-05-28] MEDS: CATHETER FLUSH 10 ML SYR IV SCH (06:22)
[2018-05-28] MEDS ORDERED: ISOSORBIDE MONONITRATE 30 MG (IMDUR) TAB PO SCH (06:30)
[2018-05-28] MEDS ORDERED: LIDOCAINE 1% INJ 20 ML 20 ML VIAL ONE (06:36)
[2018-05-28] MEDS ORDERED: HEParin (CATH LAB) 2,000 ML IV ONE (06:36)
[2018-05-28 06:39] LABS: BASOPHILS % (AUTO) 0 % (0-10); EOSINOPHILS # (AUTO) 0.2 10^3/uL (0.0-0.3); EOSINOPHILS % (AUTO) 2 % (0-10); HEMATOCRIT 35 % (35-52); HEMOGLOBIN 11.2 G/DL (11.5-16.0); LYMPHOCYTES # (AUTO) 2.3 X 10^3 (1.0-4.0); LYMPHOCYTES % (AUTO) 29 % (12-44); MEAN CORPUSCULAR HEMOGLOBIN 25 PG (25-34); MEAN CORPUSCULAR HGB CONC 32 G/DL (32-36); MEAN CORPUSCULAR VOLUME 77 FL (80-99); MEAN PLATELET VOLUME 9.6 FL (7.4-10.4); MONOCYTES # (AUTO) 0.4 X 10^3 (0.0-1.0); MONOCYTES % (AUTO) 5 % (0-12); NEUTROPHILS % (AUTO) 64 % (42-75); PLATELET COUNT 255 10^3/uL (130-400); RED CELL DISTRIBUTION WIDTH 15.3 % (10.0-14.5); WHITE BLOOD COUNT 7.9 10^3/uL (4.3-11.0)
[2018-05-28] MEDS: RT-ALBUTEROL/IPRATROPIUM 3 ML (DUONEB) VIAL INH SCH (06:45)
[2018-05-28 06:51] LABS: INR 0.9 (0.8-1.4); PROTHROMBIN TIME PATIENT 11.8 SEC (12.2-14.7)
[2018-05-28] MEDS ORDERED: PANTOPRAZOLE 40 MG (PROTONIX) TAB PO SCH (07:00)
[2018-05-28 07:01] LABS: ALANINE AMINOTRANSFERASE 20 U/L (0-55); ALBUMIN 3.2 GM/DL (3.2-4.5); ALKALINE PHOSPHATASE 112 U/L (40-136); BILIRUBIN,TOTAL 0.4 MG/DL (0.1-1.0); BUN/CREATININE RATIO 26; CALCIUM 8.5 MG/DL (8.5-10.1); CARBON DIOXIDE 19 MMOL/L (21-32); CHLORIDE 103 MMOL/L (98-107); CHOLESTEROL 320 MG/DL (< 200); CREATININE SERUM 0.61 MG/DL (0.60-1.30); GFR ESTIMATED > 60; GLUCOSE 269 MG/DL (70-105); HDL CHOLESTEROL 33 MG/DL (40-60); POTASSIUM 3.7 MMOL/L (3.6-5.0); SODIUM 134 MMOL/L (135-145); TOTAL PROTEIN 6.3 GM/DL (6.4-8.2); TRIGLYCERIDES 695 MG/DL (<150); VLDL CHOLESTEROL 139 MG/DL (5-40)
[2018-05-28] MEDS ORDERED: fentaNYL INJECTION 100 MCG/2 ML AMP ONE (07:43)
[2018-05-28] MEDS ORDERED: MIDAZOLAM 5 MG/5 ML (VERSED) VIAL ONE (07:43)
[2018-05-28] MEDS: morphine INJ 4 MG/ML 1 ML (VIAL/SYRINGE) IV PRN ×2 (08:06→13:43)
--- NOTE | 2018-05-28 08:48 | Cardiac Procedure Note-CS/ASA ---
Pre-Procedure Note Pre-Op Procedure Note H&P Reviewed The H&P was reviewed, patient examined and no changes noted. Date H&P Reviewed: May 28, 2018 Time H&P Reviewed: 08:40 Conscious Sedation Pre-Proced Time 08:40 ASA Score 3 For ASA 3 and 4: Consider anesthesia and medical clearance. Also, for patients with a history of failed moderate sedation consider anesthesia. Airway Lungs Heart ASA score ASA 1: a normal healthy patient ASA 2: a patient with a mild systemic disease (mid diabetes, controlled hypertension, obesity ASA 3: a patient with a severe systemic disease that limits activity (angina , COPD, prior Myocardial infarction) ASA 4: a patient with an incapacitating disease that is a constant threat to life (CHF, renal failure) ASA 5: a moribund patient not expected to survive 24 hrs. (ruptured aneurysm) ASA 6: a declared brain- patient whose organs are being harvested. For emergent operations, add the letter E after the classification Mallampati Classification Grade 2 Sedation Plan Analgesia, Amnesia, Plan communicated to team members, Discussed options with patient/fam, Discussed risks with patient/fam The patient is an appropriate candidate to undergo the planned procedure, sedation, and anesthesia. The patient immediately re-assessed prior to indication. ALBER PRICE MD FACP FAC CCDS May 28, 2018 08:48
[2018-05-28] MEDS ORDERED: ADENOSINE 3 MG/1 ML (ADENOSCAN) 30ML VIAL IV ONE ×2 (08:57→09:09)
[2018-05-28] MEDS ORDERED: NITRO DRIP 25000 MCG/D5W 0 ML IV ONE (08:57)
[2018-05-28] MEDS ORDERED: HEParin 1000 UNIT/ML (10ML VIAL) FOR BOLUS ONE (08:57)
[2018-05-28] MEDS ORDERED: CLOPIDOGREL 75 MG (PLAVIX) TABLET PO SCH (09:00)
[2018-05-28] MEDS ORDERED: lisINopril 5 MG (PRINIVIL) TABLET PO SCH (09:00)
[2018-05-28] MEDS ORDERED: LIRAGLUTIDE 1.8 MG SQ SCH (09:00)
[2018-05-28] MEDS ORDERED: ASPIRIN E.C. 81 MG (ECOTRIN) TAB PO SCH (09:00)
[2018-05-28] MEDS ORDERED: SERTRALINE 50 MG (ZOLOFT) TABLET PO SCH (09:00)
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
--- NOTE | 2018-05-28 09:54 | Progress Note-Cardiology ---
Cardiology SOAP Progress Note Subjective: Chest discomfort better. Has gen body discomfort/pain No shortness of breath at rest No palp or syncope Objective: I&O/Vital Signs 05/27/18 05/28/18 05/28/18 05/28/18 22:20 00:42 01:00 03:28 Temp 97.3 98.1 Pulse 92 87 87 96 Resp 16 18 B/P (MAP) 118/73 (88) 108/62 (77) 122/70 (87) Pulse Ox 98 100 O2 Delivery Room Air Room Air 05/28/18 05/28/18 05/28/18 06:45 07:00 08:00 Temp 98.0 Pulse 94 90 Resp 18 B/P (MAP) 115/71 (86) Pulse Ox 99 100 O2 Delivery Room Air Room Air 05/28/18 00:00 Intake Total 600 ml Balance 600 ml Weight (Pounds): 155 Weight (Ounces): 0.0 Weight (Calculated Kilograms): 70.800223 Constitutional: well-developed, well-nourished Respiratory: No accessory muscle use, No respiratory distress; chest expansion is symmetric, chest is bilaterally symmetric, lungs clear to auscultation Cardiovascular: regular rate-rhythm; No JVD; S1 and S2 Gastrointestional: No tender; soft, round, audible bowel sounds Extremities: no lower extremity edema bilateral Neurologic/Psychiatric: grossly intact, power is 5/5 both on sides Skin: No rash, No ulcerations; other (bruising to inner left FA) Results/Procedures: Labs Laboratory Tests 05/27/18 10:24: White Blood Count 6.1, Red Blood Count 4.85, Hemoglobin 12.4, Hematocrit 37, Mean Corpuscular Volume 76L, Mean Corpuscular Hemoglobin 26, Mean Corpuscular Hemoglobin Concent 34, Red Cell Distribution Width 15.3H, Platelet Count 325, Mean Platelet Volume 9.3, Neutrophils (%) (Auto) 52, Lymphocytes (%) (Auto) 38, Monocytes (%) (Auto) 8, Eosinophils (%) (Auto) 3, Basophils (%) (Auto) 0, Neutrophils # (Auto) 3.1, Lymphocytes # (Auto) 2.3, Monocytes # (Auto) 0.5, Eosinophils # (Auto) 0.2, Basophils # (Auto) 0.0, Prothrombin Time 11.2L, INR Comment 0.8, Activated Partial Thromboplast Time 29, Sodium Level 133L, Potassium Level 3.5L, Chloride Level 98, Carbon Dioxide Level 20L, Anion Gap 15H , Blood Urea Nitrogen 7, Creatinine 0.78, Estimat Glomerular Filtration Rate > 60, BUN/Creatinine Ratio 9, Glucose Level 437*H, Calcium Level 9.2, Corrected Calcium 9.4, Magnesium Level 2.7H, Total Bilirubin 0.3, Aspartate Amino Transf ( AST/SGOT) 15, Alanine Aminotransferase (ALT/SGPT) 20, Alkaline Phosphatase 148H , Myoglobin 9.6L, Troponin I < 0.028, B-Type Natriuretic Peptide 23.5, Total Protein 7.8, Albumin 3.8 05/27/18 13:56: Glucometer 293H 05/27/18 15:06: Glucometer 214H 05/27/18 16:38: Troponin I < 0.028 05/27/18 20:49: Glucometer 105 05/27/18 22:30: Troponin I < 0.028 05/28/18 05:45: White Blood Count 7.9, Red Blood Count 4.55, Hemoglobin 11.2L, Hematocrit 35, Mean Corpuscular Volume 77L, Mean Corpuscular Hemoglobin 25, Mean Corpuscular Hemoglobin Concent 32, Red Cell Distribution Width 15.3H, Platelet Count 255, Mean Platelet Volume 9.6, Neutrophils (%) (Auto) 64, Lymphocytes (%) (Auto) 29, Monocytes (%) (Auto) 5, Eosinophils (%) (Auto) 2, Basophils (%) (Auto) 0, Neutrophils # (Auto) 5.0, Lymphocytes # (Auto) 2.3, Monocytes # (Auto) 0.4, Eosinophils # (Auto) 0.2, Basophils # (Auto) 0.0, Prothrombin Time 11.8L, INR Comment 0.9, Activated Partial Thromboplast Time 25, Sodium Level 134L, Potassium Level 3.7, Chloride Level 103, Carbon Dioxide Level 19L, Anion Gap 12 , Blood Urea Nitrogen 16, Creatinine 0.61, Estimat Glomerular Filtration Rate > 60, BUN/Creatinine Ratio 26, Glucose Level 269H, Calcium Level 8.5, Corrected Calcium 9.1, Total Bilirubin 0.4, Aspartate Amino Transf (AST/SGOT) 21, Alanine Aminotransferase (ALT/SGPT) 20, Alkaline Phosphatase 112, Total Protein 6.3L, Albumin 3.2, Triglycerides Level 695H, Cholesterol Level 320H, LDL Cholesterol Direct 145H, VLDL Cholesterol 139H, HDL Cholesterol 33L 05/28/18 08:22: Glucometer 338H Laboratory Tests 05/27/18 10:24 05/28/18 05:45 A/P: Assessment: Chest pain, both cardiac and non-cardiac. No evidence of acute cor syndrome during this admission Card cath on 05/28/18: Greater than 50% ostial LMCA (based on 20-30 mmHg pressure gradient between aortic and LMCA pressures), 80% ostial LAD (FFR 0.74 across combination of LMCA and LAD stenoses), 80% RI, mild to mod diff dz of LCX and dominant RCA; patent overlapping stents in prox and mid LAD; LVEDP 14 mmHg; LVEF 70% H/o Intubation and mech vent in Mar 2018 for amitriptyline and benzodiazepine overdose. Has had a sore throat since - being managed by her pcp H/o palpitations, none recently Chronic diastolic CHF - clinically compensated Pulm nodule being followed by Dr Arroyo. CT chest angio on 03-09-18 showed mildly prominent bilat hilar lymph nodes. Stable 7 mm groundglass micronodular density within the left lower lobe Echocardiogram of 10-25-17 showed LVEF 55-60%. Mild TR. PASP 30 mmHg H/o intermittent, bilat leg swelling. Bilat leg venous Duplex of 10/23/17 did not show any DVT DM II Chronic tobacco use - cessation advised Plan: * Complex management issue * Suffers from chronic pain, much of which is noncardiac, but (based on today cath) there appears to be a component of chronic angina pectoris, too * Based on cor anatomy and pt's med history (DM II), CABG appears to be the best treatment approach. I discussed this in detail with Dr Mcdaniel at [facility] who has kindly accepted the patient in transfer. I discussed her issues in detail with the patient and her . They agree with the plan Clinical Quality Measures AMI/AHF: ASA po Prior to arrival: Yes ALBER PRICE MD FACP FAC CCDS May 28, 2018 09:54
[2018-05-28] MEDS ORDERED: PATIENT MAY USE OWN MEDS, ALL PO SCH (10:00)
--- NOTE | 2018-05-28 10:02 | Cardiology Discharge Summary ---
Diagnosis/Chief Complaint Date of Admission May 27, 2018 at 13:45 Date of Discharge 05/28/18 Final/Discharge Diagnosis Chest pain, both cardiac and non-cardiac. No evidence of acute cor syndrome during this admission Card cath on 05/28/18: Greater than 50% ostial LMCA (based on 20-30 mmHg pressure gradient between aortic and LMCA pressures), 80% ostial LAD (FFR 0.74 across combination of LMCA and LAD stenoses), 80% RI, mild to mod diff dz of LCX and dominant RCA; patent overlapping stents in prox and mid LAD; LVEDP 14 mmHg; LVEF 70% H/o Intubation and mech vent in Mar 2018 for amitriptyline and benzodiazepine overdose. Has had a sore throat since - being managed by her pcp H/o palpitations, none recently Chronic diastolic CHF - clinically compensated Pulm nodule being followed by Dr Arroyo. CT chest angio on 03-09-18 showed mildly prominent bilat hilar lymph nodes. Stable 7 mm groundglass micronodular density within the left lower lobe Echocardiogram of 10-25-17 showed LVEF 55-60%. Mild TR. PASP 30 mmHg H/o intermittent, bilat leg swelling. Bilat leg venous Duplex of 10/23/17 did not show any DVT DM II Chronic tobacco use - cessation advised Chief Complaint/HPI Chief Complaint/HPI HPI: Ms. Ho is a 38 year old female admitted to from the ED with c/o CP. Her significant other is at the bedside, frequently talking over her. She reports she has been having episodes of left sided, sharp, stabbing chest pain over the last 3 days. She reports the episodes last for several minutes, occur several times during the day. They are not related to activity; the discomfort can occur while lying or sitting. She does not report diaphoresis, but her significant other reports she has been diaphoretic at times. She reports she has chronic mild to mod ankle/foot swelling which improves with elevation. No c /o syncope or near syncope. Her significant other is asking for pain medications for her. She reports chronic mild to mod dyspnea. She reports chronic nausea for which she is taking "medications so I don't throw up". She reports episodes of chills at home, but no fever. She denies any street drug use. She denies any ETOH use. She reports she has been compliant with her medications. Please refer to my progress note of today's date for hosp course and condition at discharge Discharge Summary Hospital Course Pending Labs Laboratory Tests 05/28/18 05:45: White Blood Count 7.9, Red Blood Count 4.55, Hemoglobin 11.2, Hematocrit 35, Mean Corpuscular Volume 77, Mean Corpuscular Hemoglobin 25, Mean Corpuscular Hemoglobin Concent 32, Red Cell Distribution Width 15.3, Platelet Count 255, Mean Platelet Volume 9.6, Neutrophils (%) (Auto) 64, Lymphocytes (%) (Auto) 29, Monocytes (%) (Auto) 5, Eosinophils (%) (Auto) 2, Basophils (%) (Auto) 0, Neutrophils # (Auto) 5.0, Lymphocytes # (Auto) 2.3, Monocytes # (Auto) 0.4, Eosinophils # (Auto) 0.2, Basophils # (Auto) 0.0, Prothrombin Time 11.8, INR Comment 0.9, Activated Partial Thromboplast Time 25, Sodium Level 134, Potassium Level 3.7, Chloride Level 103, Carbon Dioxide Level 19, Anion Gap 12, Blood Urea Nitrogen 16, Creatinine 0.61, Estimat Glomerular Filtration Rate > 60 , BUN/Creatinine Ratio 26, Glucose Level 269, Calcium Level 8.5, Corrected Calcium 9.1, Total Bilirubin 0.4, Aspartate Amino Transf (AST/SGOT) 21, Alanine Aminotransferase (ALT/SGPT) 20, Alkaline Phosphatase 112, Total Protein 6.3, Albumin 3.2, Triglycerides Level 695, Cholesterol Level 320, LDL Cholesterol Direct 145, VLDL Cholesterol 139, HDL Cholesterol 33 05/28/18 08:22: Glucometer 338 Discussion & Recommendations Home Medications Reviewed patient Home Medication Reconciliation performed by pharmacy medication reconciliations plastic eye technician and/or nursing. Patients Allergies have been reviewed. Discharge Home Medications: Reviewed and agree with Discharge Medication list on patient's Discharge Instruction sheet Clinical Quality Measures AMI/AHF: ASA po Prior to arrival: Yes DVT/VTE Risk/Contraindication: Risk Factor Score Per Nursin RFS Level Per Nursing on Admit: 1=Low/No VTE PPX ALBER PRICE MD FACP FAC CCDS May 28, 2018 10:02
--- NOTE | 2018-05-28 10:17 | CARDIAC CATHETERIZATION ---
DATE OF SERVICE: 05/28/2018 CARDIAC CATHETERIZATION REPORT The patient is a 38-year-old lady with multiple coronary artery disease risk factors, who has had coronary interventions to the left anterior descending artery and presents with chest discomfort without any distinct evidence of myocardial infarction. Because of her risk factors and continuing chest pain, cardiac catheterization was recommended and was carried out today after having obtained an informed consent. PROCEDURE: She was brought to the cardiac catheterization laboratory in a fasting state. Right groin was prepped and draped in the usual sterile fashion. Lidocaine 1% local anesthesia. Modified Seldinger technique was used to advance a 5-Salvadorean sheath in the right femoral artery. Angiography of the right femoral artery was carried out through the sheath. A 5-Salvadorean JL4 catheter used for left coronary angiography. A 5-Salvadorean JR4 catheter was used for right coronary angiography. A 5-Salvadorean pigtail catheter was used for left heart catheterization and left ventricular angiography. FRACTIONAL FLOW RESERVE MEASUREMENT IN THE LEFT ANTERIOR DESCENDING ARTERY: Following completion of the diagnostic procedure, we carried out fractional flow reserve measurement in the left anterior descending artery, which was exhibiting approximately 80% ostial stenosis. We exchanged the sheath over a wire for a 6-Salvadorean sheath. We used a 6-Salvadorean JL3.5 guide catheter. We engaged the left coronary artery and past the pressure wire across the lesion in the left anterior descending artery and the tip of the wire was placed in the distal vessel. Adenosine was infused at 140 mcg per kilogram for a 2-1/2 minutes. The fractional flow reserve across the left anterior descending artery with the catheter engaging the left main coronary artery was approximately 0.84, but with disengagement of the catheter from the left main coronary artery, the fractional flow reserve was 0.74 indicating hemodynamic significance. Upon engagement of the left anterior descending artery, both during fractional flow reserve measurement and during the diagnostic procedure, we were noting a considerable pressure gradient between the left main coronary and the aorta indicating that there is a considerable disease within the left main coronary artery, as well, although it does not appear angiographically evident. After completion of the fractional flow reserve measurement, we repeated angiography to make sure that there was no change in coronary status. The catheter was then removed. The sheath was sutured in place and the patient was transferred to the floor for manual sheath removal. She received 5000 units of intravenous heparin during the fractional flow reserve measurement. Overall, she tolerated the procedure well. HEMODYNAMICS: Left ventricular end-diastolic pressure following coronary angiography was 14 mmHg. There was no significant pressure gradient on pullback across the aortic valve. The ascending aortic pressure was 169/112 with a mean of 129 mmHg. CORONARY ANGIOGRAPHY: Left main coronary artery does not show angiographically significant disease, but there is 20 to 30 mmHg pressure gradient between the aorta and the left main coronary artery pressure, indicating considerable ostial stenosis of the left main coronary artery. The left anterior descending artery has 80% ostial stenosis. There are patent overlapping stents in the proximal and mid portion of the left anterior descending artery, which do not exhibit significant stenosis. The fractional flow reserve across the combination of the left main coronary and the ostial left anterior descending artery lesion is 0.74 and indicating hemodynamic significance. A relatively small caliber ramus intermedius has 80% ostial stenosis. Left circumflex artery has diffuse mild to moderate disease. The right coronary artery has approximately 40% proximal stenosis with some spasm with catheter engagement, but there does not appear to be significant obstructive coronary artery disease. LEFT VENTRICULAR ANGIOGRAPHY: Left ventricular angiography was carried out in the right anterior oblique projection. Global left ventricular systolic function is normal. Left ventricular ejection fraction is approximately 70%. No distinct regional wall motion abnormalities are seen in this view. CONCLUSIONS: 1. Coronary artery disease consisting of significant ostial left main coronary artery disease (based on 20 to 30 mmHg pressure gradient between the aorta and left main coronary) and approximately 80% ostial stenosis of the left anterior descending. Fractional flow reserve across these lesions is 0.74, indicating hemodynamic significance. There are patent stents in the proximal and mid left anterior descending artery that are known to be overlapping drug-eluting stents. The ramus intermedius is of a relatively small caliber and has 80% ostial stenosis. Left circumflex and right coronary arteries have diffuse mild to moderate disease. Right coronary artery is dominant. 2. Normal left ventricular function with an ejection fraction of 70%. 3. Mild elevation of left ventricular end-diastolic pressure. DISCUSSION AND RECOMMENDATIONS: Based on the results of the study and the patient's symptoms and risk factors (including diabetes mellitus), coronary artery bypass surgery appears to be the best treatment option. We called Dr. Mcdaniel of the cardiovascular surgical service at [facility], who has kindly accepted the patient in transfer. Arrangements are being made at the time of this dictation. Job ID: [id number] DocumentID: [id number] Dictated Date: 05/28/2018 09:39:44 Investigator Fraud Date: 05/28/2018 10:16:27 Dictated By: ALBER PRICE MD, MA, FACP, FACC, MTDD
[2018-05-28] MEDS ORDERED: ATROPINE INJ 0.4 MG/ML SDV ONE (13:09)
== END 2018-05-28 16:10 | disposition short-term general hospital (02) ==
LOC: EDUNIT# 10:00 → ER 10:01 → 4TH 13:45 → ICU 05-28 09:53
PROVIDERS: ADMIT Internal Medicine; ATTEND Internal Medicine
DX: R07.9 Chest pain, unspecified (principal); I11.0 Hypertensive heart disease with heart failure; I50.32 Chronic diastolic (congestive) heart failure; R91.1 Solitary pulmonary nodule; M79.89 Other specified soft tissue disorders; E11.9 Type 2 diabetes mellitus without complications; Z87.891 Personal history of nicotine dependence; Z95.5 Presence of coronary angioplasty implant and graft; I25.10 Atherosclerotic heart disease of native coronary artery without angina pectoris; I25.2 Old myocardial infarction; E78.00 Pure hypercholesterolemia, unspecified; Z79.4 Long term (current) use of insulin; Z79.899 Other long term (current) drug therapy
CPT/HCPCS: 36415; 71045; 80053; 80061; 82962; 83735; 83874; 83880; 84484; 85025; 85027; 85610; 85730; 87081; 93005; 93041; 93458; 94640; 94760

== ENCOUNTER 2018-05-31 09:26 | Observation (INO) | payer SELFPAY ==
[~2018-05-31] VITALS: Ht 157.5 cm; Wt 68.2 kg
[2018-05-31] MEDS ORDERED: NS IV 1000 ML 1,000 ML IV ONE ×2 (09:43→11:59)
[2018-05-31] MEDS ORDERED: LABETALOL HCL 20 MG/4 ML VIAL IV ONE (09:45)
[2018-05-31 09:51] LABS: BASOPHILS % (AUTO) 0 % (0-10); EOSINOPHILS # (AUTO) 0.1 10^3/uL (0.0-0.3); EOSINOPHILS % (AUTO) 2 % (0-10); HEMATOCRIT 36 % (35-52); HEMOGLOBIN 11.5 G/DL (11.5-16.0); LYMPHOCYTES # (AUTO) 1.7 X 10^3 (1.0-4.0); LYMPHOCYTES % (AUTO) 30 % (12-44); MEAN CORPUSCULAR HEMOGLOBIN 25 PG (25-34); MEAN CORPUSCULAR HGB CONC 32 G/DL (32-36); MEAN CORPUSCULAR VOLUME 77 FL (80-99); MEAN PLATELET VOLUME 8.8 FL (7.4-10.4); MONOCYTES # (AUTO) 0.4 X 10^3 (0.0-1.0); MONOCYTES % (AUTO) 7 % (0-12); NEUTROPHILS # (AUTO) 3.5 X 10^3 (1.8-7.8); NEUTROPHILS % (AUTO) 62 % (42-75); PLATELET COUNT 309 10^3/uL (130-400); RED CELL DISTRIBUTION WIDTH 15.3 % (10.0-14.5); WHITE BLOOD COUNT 5.7 10^3/uL (4.3-11.0)
[2018-05-31 10:09] LABS: ALANINE AMINOTRANSFERASE 19 U/L (0-55); ALBUMIN 3.8 GM/DL (3.2-4.5); ALKALINE PHOSPHATASE 125 U/L (40-136); BILIRUBIN,TOTAL 0.7 MG/DL (0.1-1.0); BUN/CREATININE RATIO 13; CALCIUM 9.4 MG/DL (8.5-10.1); CARBON DIOXIDE 20 MMOL/L (21-32); CHLORIDE 103 MMOL/L (98-107); CREATININE SERUM 0.69 MG/DL (0.60-1.30); GFR ESTIMATED > 60; GLUCOSE 298 MG/DL (70-105); POTASSIUM 3.7 MMOL/L (3.6-5.0); SODIUM 137 MMOL/L (135-145); TOTAL PROTEIN 7.7 GM/DL (6.4-8.2)
[2018-05-31 10:14] LABS: FIBRIN DEGRADATION PRODUCTS 0.58 UG/ML (0.00-0.49); INR 0.9 (0.8-1.4); PROTHROMBIN TIME PATIENT 12.1 SEC (12.2-14.7)
[2018-05-31] MEDS ORDERED: RECEIVED CONTRAST (Hold Metformin) IV SCH (10:15)
[2018-05-31] MEDS ORDERED: IOHEXOL 350 MG/ML 100 ML (OMNIPAQUE 350) VIAL IV ONE (10:15)
[2018-05-31] MEDS ORDERED: NS 100 ML (IVPB) BAG IV ONE (10:15)
--- NOTE | 2018-05-31 10:37 | Diagnostic Imaging Report ---
INDICATION: Stroke. Time of exam: 10:30 AM Correlation is made with prior study from 05/27/2018. The heart size is normal. The pulmonary vascularity is unremarkable. The lungs are clear. No infiltrate, effusion or pneumothorax is detected. Impression: No acute cardiopulmonary process is detected. Dictated by: Dictated on workstation # [id number]
--- NOTE | 2018-05-31 10:47 | ED General ---
General Chief Complaint: Neuro-Stroke Like Symptoms Stated Complaint: STROKE LIKE SYMPTOMS Nursing Triage Note: To ED via EMS for stroke like symptoms. Pt presents with slurred speech, and R sided facial droop. Last known well time was 0530. Blood sugar per EMS enroute 325. EMS reports pt had heart cath yesterday and takes blood thinner. Pt also reports being diagnosed with "watermelon stomach disease" yesterday. Nursing Sepsis Screen: No Definite Risk Source of Information: Patient Exam Limitations: No Limitations (NESSA MIJARES MD) History of Present Illness Date Seen by Provider: May 31, 2018 Time Seen by Provider: 09:38 Initial Comments Here with report of onset of right facial droop and slurred speech that started this morning. Last known well time was 530 a.m. States that she had heart catheter yesterday with stent placement and balloon. Catheter through right groin. She was sent to [place] on Sunday for evaluation for CABG. She is on blood thinners although has not started her new blood thinner today. 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 She is not sure of the direction of treatment on that at this point. States that she feels weak all over. She does have diabetes and significant known coronary artery disease as well as hypercholesterolemia. She has poorly controlled diabetes. She does continue to smoke. She has not smoked for a few days though because of hospitalization. Significant other reports that the patient actually had the facial droop at the hospital yesterday but it seems to be worse today. Timing/Duration: 4-6 Hours Severity: Mild Modifying Factors: improves with Rest Associated Systoms: No Chest Pain, No Cough, No Fever/Chills, No Headaches, No Nausea/Vomiting, No Shortness of Air; Weakness (NESSA MIJARES MD) Allergies and Home Medications Allergies Coded Allergies: coconut (Verified Allergy, Severe, anaphylactic reaction, 07/11/17) ketorolac (Unverified Allergy, Unknown, 08/19/15) Home Medications Albuterol Sulfate 1 Puff Puff, 2 PUFF INH Q4H PRN for SHORTNESS OF BREATH, ( Reported) 1 PUFF = 90 MCG Aspirin 81 Mg Tab.chew, 81 MG PO DAILY, (Reported) Clonazepam 0.5 Mg Tablet, 0.5 MG PO BID, (Reported) Clopidogrel Bisulfate 75 Mg Tablet, 75 MG PO DAILY, (Reported) Gabapentin 300 Mg Capsule, 300 MG PO TID, (Reported) Insulin Detemir 100 Unit/1 Ml Insuln.pen, 25 UNIT SQ BID, (Reported) Insulin Lispro 100 Unit/1 Ml Insuln.pen, 20 UNIT SQ TIDAC, (Reported) Liraglutide 0.6 Mg/0.1 Ml Pen.injctr, 1.8 MG SQ DAILY, (Reported) Metformin HCl 1,000 Mg Tablet, 1,000 MG PO BID, (Reported) LAST FILLED #60 18 Metoprolol Succinate 50 Mg Tab.er.24h, 50 MG PO BID, (Reported) LAST FILLED #60 03-30-18 Ondansetron 8 Mg Tab.rapdis, 8 MG PO Q6H PRN for NAUSEA/VOMITING-1ST LINE, ( Reported) Patient Home Medication List Home Medication List Reviewed: Yes (NESSA MIJARES MD) Review of Systems Review of Systems Constitutional: see HPI; No chills, No fever EENTM: see HPI, other (right facial droop) Respiratory: No cough, No short of breath Cardiovascular: No edema; Hx of Intervention; No palpitations Gastrointestinal: No abdominal pain, No nausea, No vomiting Genitourinary: no symptoms reported Musculoskeletal: muscle weakness (global) Skin: No lesions, No rash; other (catheter puncture site right groin covered with dressing) Psychiatric/Neurological: See HPI, Weakness Hematologic/Lymphatic: No Symptoms Reported Immunological/Allergic: no symptoms reported (NESSA MIJARES MD) All Other Systems Reviewed Negative Unless Noted: Yes (NESSA MIJARES MD) Past Anljtnt-Ibbxjp-Trjtrj Hx Past Med/Social Hx: Reviewed Nursing Past Med/Soc Hx (NESSA MIJARES MD) Patient Social History Alcohol Use: Denies Use Recreational Drug Use: No Drug of Choice: RX DRUG OVERDOSES Type Used: Cigarettes Former Smoker, Quit: Mar 14, 2018 2nd Hand Smoke Exposure: Yes Recent Foreign Travel: No Contact w/Someone Who Travel: No Recent Infectious Disease Expo: No Recent Hopitalizations: Yes (OVERDOSE 04/12/18, heart cath) Physical Abuse: No Sexual Abuse: No (NESSA MIJARES MD) Immunizations Up To Date Tetanus Booster (TDap): Unknown PED Vaccines UTD: No Date of Pneumonia Vaccine: September 09, 2016 Date of Influenza Vaccine: Mar 26, 2018 (NSESA MIJARES MD) Seasonal Allergies Seasonal Allergies: No (NESSA MIJARES MD) Past Medical History Surgeries: Yes Breast, Cardiac, Section, Coronary Stent, Orthopedic, Tubal Ligation Respiratory: Yes (Respiratory failure and intubation March 2018 secondary to overdose) Currently Using CPAP: No Currently Using BIPAP: No Cardiac: Yes (Hx of stent to LAD.) Coronary Artery Disease, Heart Attack, High Cholesterol, Hypertension Neurological: Yes Neuropathy Reproductive Disorders: No Female Reproductive Disorders: Ovarian Cyst 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 Sexually Transmitted Disease: No HIV/AIDS: No Genitourinary: No Gastrointestinal: Yes ("watermelon stomach disease") Musculoskeletal: Yes (carpal tunnel bilat hands; S/P BACK SURGERY/DISCECTOMY) Chronic Back Pain Endocrine: Yes Diabetes, Insulin dep HEENT: No Loss of Vision: Denies Hearing Impairment: Denies Cancer: No Psychosocial: Yes (OVERDOSE ON RX MEDS REQUIRING INTUBATION 04/12/18) Suicide Attempts Integumentary: No Blood Disorders: No Adverse Reaction/Blood Tranf: No (NESSA MIJARES MD) Family Medical History Reviewed Nursing Family Hx (NESSA MIJARES MD) Cardiovascular disease 19 FATHER, Onset:Unknown 19 MOTHER, Onset:Unknown Diabetes mellitus 19 FATHER 19 MOTHER Heart Disease, Diabetes, Other Conditions/Hx (NESSA MIJARES MD) Physical Exam-Suspected Sepsis Physical Exam Vital Signs Vital Signs - First Documented 05/31/18 10:16 Temp 98.4 Pulse 96 Resp 16 B/P (MAP) 179/116 (137) Pulse Ox 98 O2 Delivery Room Air (CORNELIA KENNEDY MD) Vital Signs Capillary Refill : Less Than 3 Seconds (NESSA MIJARES MD) Blood Pressure Mean: 137 Height, Weight, BMI Height: 5'2.00" Weight: 155lbs. 0.0oz. 70.666107pw; 28.4 BMI Method:Stated General Appearance: WD/WN, Anxious, Chronically ill HEENT: PERRL/EOMI, Other (right facial drooping. No adverse findings to tongue or soft palate with vocalization and equal movement bilateral.) Neck: Full Range of Motion, Supple Respiratory: Lungs Clear, Normal Breath Sounds Cardiovascular: Regular Rate, Rhythm, No Murmur Gastrointestinal: Non Tender, Soft Back: Normal Inspection, No CVA Tenderness, No Vertebral Tenderness Extremity: Other (mild tenderness to the right groin at heart catheter puncture site. Retains range of motion of extremities upper and lower equal but slowed bilaterally) Neurologic/Psychiatric: Alert, Oriented x3, Depressed Affect, Facial Droop ( right-sided), Motor Weakness (global) Skin: normal color, warm/dry, other (Puncture site clean, dry and intact) ( NESSA MIJARES MD) Procedures/Interventions Date of ETT Placement: Apr 12, 2018 Time of ETT Placement: 0406 (NESSA MIJARES MD) Progress/Results/Core Measures Suspected Sepsis Recent Fever Within 48 Hours: No Infection Criteria Present: None New/Unexplained Altered Menta: No Sepsis Screen: No Definite Risk SIRS Temperature:98.4 Pulse: 96 Respiratory Rate: 16 Laboratory Tests 05/31/18 09:42: White Blood Count 5.7 Blood Pressure 179 /116 Mean: 137 Laboratory Tests 05/31/18 09:42: Creatinine 0.69, INR Comment 0.9, Platelet Count 309, Total Bilirubin 0.7 (NESSA MIJARES MD) Results/Orders Lab Results Laboratory Tests Test 05/31/18 09:40 05/31/18 09:42 05/31/18 11:50 Range/Units Glucometer 311 H 70-110 MG/DL White Blood Count 5.7 4.3-11.0 10^3/uL Red Blood Count 4.64 4.35-5.85 10^6/uL Hemoglobin 11.5 11.5-16.0 G/DL Hematocrit 36 35-52 % Mean Corpuscular Volume 77 L 80-99 FL Mean Corpuscular Hemoglobin 25 25-34 PG Mean Corpuscular Hemoglobin Concent 32 32-36 G/DL Red Cell Distribution Width 15.3 H 10.0-14.5 % Platelet Count 309 130-400 10^3/uL Mean Platelet Volume 8.8 7.4-10.4 FL Neutrophils (%) (Auto) 62 42-75 % Lymphocytes (%) (Auto) 30 12-44 % Monocytes (%) (Auto) 7 0-12 % Eosinophils (%) (Auto) 2 0-10 % Basophils (%) (Auto) 0 0-10 % Neutrophils # (Auto) 3.5 1.8-7.8 X 10^3 Lymphocytes # (Auto) 1.7 1.0-4.0 X 10^3 Monocytes # (Auto) 0.4 0.0-1.0 X 10^3 Eosinophils # (Auto) 0.1 0.0-0.3 10^3/uL Basophils # (Auto) 0.0 0.0-0.1 10^3/uL Prothrombin Time 12.1 L 12.2-14.7 SEC INR Comment 0.9 0.8-1.4 Activated Partial Thromboplast Time 30 24-35 SEC D-Dimer 0.58 H 0.00-0.49 UG/ML Sodium Level 137 135-145 MMOL/L Potassium Level 3.7 3.6-5.0 MMOL/L Chloride Level 103 98-107 MMOL/L Carbon Dioxide Level 20 L 21-32 MMOL/L Anion Gap 14 5-14 MMOL/L Blood Urea Nitrogen 9 7-18 MG/DL Creatinine 0.69 0.60-1.30 MG/DL Estimat Glomerular Filtration Rate > 60 BUN/Creatinine Ratio 13 Glucose Level 298 H 70-105 MG/DL Calcium Level 9.4 8.5-10.1 MG/DL Corrected Calcium 9.6 8.5-10.1 MG/DL Total Bilirubin 0.7 0.1-1.0 MG/DL Aspartate Amino Transf (AST/SGOT) 16 5-34 U/L Alanine Aminotransferase (ALT/SGPT) 19 0-55 U/L Alkaline Phosphatase 125 40-136 U/L Troponin I 0.040 <0.028 NG/ML Total Protein 7.7 6.4-8.2 GM/DL Albumin 3.8 3.2-4.5 GM/DL Serum Test, Qualitative NEGATIVE NEGATIVE Urine Color YELLOW Urine Clarity CLEAR Urine pH 7 5-9 Urine Specific [place] 1.010 L 1.016-1.022 Urine Protein 2+ H NEGATIVE Urine Glucose (UA) 4+ H NEGATIVE Urine Ketones 2+ H NEGATIVE Urine Nitrite NEGATIVE NEGATIVE Urine Bilirubin NEGATIVE NEGATIVE Urine Urobilinogen 1 NORMAL MG/DL Urine Leukocyte Esterase 1+ H NEGATIVE Urine RBC (Auto) NEGATIVE NEGATIVE Urine RBC NONE /HPF Urine WBC 0-2 /HPF Urine Squamous Epithelial Cells 5-10 /HPF Urine Crystals NONE /LPF Urine Bacteria NEGATIVE /HPF Urine Casts NONE /LPF Urine Mucus NEGATIVE /LPF Urine Culture Indicated NO (CORNELIA KENNEDY MD) Medications Given in ED Current Medications Medications Dose Ordered Sig/Tomasz Route Start Time Stop Time Status Last Admin Dose Admin Famotidine 20 mg ONCE ONCE IVP 05/31/18 12:00 05/31/18 12:01 DC 05/31/18 13:25 20 MG Iohexol 75 ml ONCE ONCE IV 05/31/18 10:15 05/31/18 10:16 DC 05/31/18 10:20 75 ML Pantoprazole 40 mg ONCE ONCE IV 05/31/18 12:00 05/31/18 12:01 DC 05/31/18 13:25 40 MG Sodium Chloride 100 ml ONCE ONCE IV 05/31/18 10:15 05/31/18 10:16 DC 05/31/18 10:20 80 ML Sodium Chloride 1,000 ml @ 0 mls/hr Q0M ONCE IV 05/31/18 09:43 05/31/18 09:45 DC 05/31/18 10:42 1,000 MLS/HR (CORNELIA KENNEDY MD) Vital Signs/I&O 05/31/18 10:16 Temp 98.4 Pulse 96 Resp 16 B/P (MAP) 179/116 (137) Pulse Ox 98 O2 Delivery Room Air (CORNELIA KENNEDY MD) Vital Signs/I&O Capillary Refill : Less Than 3 Seconds (NESSA MIJARES MD) Blood Pressure Mean: 137 Point of Care Testing Finger Stick Blood Glucose: 311 Blood Glucose Action Taken: ciarra notified (NESSA MIJARES MD) Progress Note : Progress Note Seen and evaluated. Stroke order set initiated. CT head ordered. Patient is outside of time for TPA as last known well time is 530 this morning at a minimum but appears to actually be since yesterday afternoon at least. Initially hypertensive and labetalol ordered but patient's blood pressure normalized prior to giving dose of labetalol. We will get CT angiogram of the head and neck as well as well. I-STAT was done and patient okay for angiogram at time of CT. Pending labs and evaluation. 1145: CT angiogram of the head and neck do not show any significant findings. Patient had to have repeat CT angiogram of the head to reevaluate. We will repeat normal saline 1 L bolus. Patient now has central chest pain that she says is moderate in intensity and typical when she is having her vaginal chest pain. Morphine 5 mg IV given. I did discuss the case at length with the radiologist. At this point we will do to MRI. Patient will get an MRI of the head and C-spine without contrast per radiology request. Patient did not take her morning dose of Brilinta so we will give her 90 mg now. ASA 81 mg PO. Protonix 40 mg IV and Pepcid 20 mg IV ordered after discussion with Dr. Benoit. 1200: Care transferred to Dr. KENNEDY pending MRI. (NESSA MIJARES MD) ECG Initial ECG Impression Date: May 31, 2018 Initial ECG Impression Time: 09:42 Initial ECG Rate: 100 Initial ECG Rhythm: S.Tach Comment Sinus tach with anterior Q waves that is similar to previous of 05/27/18. No evidence of ST elevation IN. Interpreted by me. (NESSA MIJARES MD) Diagnostic Imaging Diagonstic Imaging: Xray Plain Films/CT/US/NM/MRI: chest Comments [facility] [place] NAME: BLAS QUEVEDO [employer] REC#: [id number] PT STATUS: REG ER : 1980 PHYSICIAN: NESSA MIJARES MD ADMIT DATE: 05/31/18/ER Draft Date of Exam:05/31/18 CHEST 1 VIEW, AP/PA ONLY INDICATION: Stroke. Time of exam: 10:30 AM Correlation is made with prior study from 05/27/2018. The heart size is normal. The pulmonary vascularity is unremarkable. The lungs are clear. No infiltrate, effusion or pneumothorax is detected. Impression: No acute cardiopulmonary process is detected. Dictated on workstation # [id number] Dict: 05/31/18 1032 Trans: 05/31/18 [facility] LUIS [id number] Interpreted by: ANGELICA JOYCE MD Electronically signed by: (NESSA MIJARES MD) Departure Communication (Admissions) 12 00 took over this patient from Dr. Mijares. I was briefly by him and have examined the chart. We were awaiting the return of an MRI with contrast. The patient had a procedure yesterday in [place] with cardiac stenting. She was then discharged yesterday afternoon. She reports that she had a bit of a right facial droop and thick tongued speech then. She also noted some pain in the right mastoid process area. This morning on arising this was noted to be more prominent with the effacement of the right nasolabial fold. Speech seems clear but slow and careful. She is unable to furrow the right forehead. She is unable to completely close the right eye. The attempt at smiling produces the typical [place] crooked smile. He has been had been in contact with Dr. Montaño's nurse. The possibility of transfer there had come up however given the timeframe from onset of symptoms and the weather conditions this seemed to be a rather risky course. I spoke to Dr. Montaño by phone at 1308 and he agreed. Accordingly the patient will be admitted here for observation. She is in stable condition. 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 Referrals: BRI THOMAS MD (PCP/Family) Primary Care Physician Patient Instructions: NESSA MARIA MD May 31, 2018 10:47 CORNELIA KENNEDY MD May 31, 2018 13:52
--- NOTE | 2018-05-31 10:50 | NUR ---
Pt has had significant drop in blood pressure since arroval. Pt's BP at this time 121/98. Dr. Pizano notified. Normodyne not administered per Dr. Pizano.
--- NOTE | 2018-05-31 10:59 | NUR ---
Pt's to nurses desk reporting pt is now having chest pain. Dr. Pizano notified.
[2018-05-31] MEDS ORDERED: morphine INJ 10 MG/ML 1ML (SYR OR VIAL) IVP STA (11:24)
[2018-05-31] MEDS ORDERED: TICAGRELOR 90 MG TABLET (BRILINTA) PO STA (11:44)
--- NOTE | 2018-05-31 11:55 | NUR ---
Patient report taken from Sonia Murphy RN.
[2018-05-31] MEDS ORDERED: PANTOPRAZOLE 40 MG (PROTONIX) VIAL IV ONE (12:00)
[2018-05-31] MEDS ORDERED: FAMOTIDINE 20MG/2ML IV (PEPCID) IVP ONE (12:00)
[2018-05-31] MEDS ORDERED: ASPIRIN 81 MG CHEW (CHILDREN'S ASA) PO STA (12:01)
[2018-05-31 12:02] LABS: BILIRUBIN,URINE NEGATIVE (NEGATIVE); CLARITY,URINE CLEAR; COLOR,URINE YELLOW; GLUCOSE, URINE (UA) 4+ (NEGATIVE); KETONES,URINE 2+ (NEGATIVE); LEUKOCYTE ESTERASE ,URINE 1+ (NEGATIVE); NITRITE,URINE NEGATIVE (NEGATIVE); PH,URINE 7 (5-9); PROTEIN,URINE 2+ (NEGATIVE); UROBILINOGEN,URINE 1 MG/DL (NORMAL)
--- NOTE | 2018-05-31 12:04 | Diagnostic Imaging Report ---
PROCEDURE: CT angiography of the head and CT angiography of the neck with and without contrast. TECHNIQUE: Contiguous noncontrast images were obtained from the skull base through the vertex. After intravenous contrast administration, helical CT angiography of the neck was performed. Source data was reformatted into multiple MIP projections. Delayed post contrast acquisition was also obtained. INDICATION: Right-sided weakness. FINDINGS: The precontrast head CT demonstrates the ventricles and sulci to be within normal limits. No sulcal effacement is seen. There is no midline shift. No acute intra-axial or extra-axial hemorrhage is detected. The delayed post contrast images are without abnormal enhancing lesion. The CT angiographic portion through the neck does show a three-vessel branching pattern to the aortic arch. The origins appear to be widely patent. Both common carotid arteries are patent. The carotid bifurcations are unremarkable. The visualized proximal internal carotid arteries appear widely patent. The left vertebral artery is dominant. The right vertebral artery is very small. The CTA through the head demonstrates the basilar artery and distal vertebral arteries to be patent. There appears to be flow within bilateral middle cerebral and anterior cerebral arteries. No filling defects to suggest thromboemboli are seen. The peripheral branches appear to opacify normally. IMPRESSION: Unremarkable CTA of the head and neck. No thromboemboli are identified. Dictated by: Dictated on workstation # [id number]
[2018-05-31 12:10] LABS: BACTERIA,URINE NEGATIVE /HPF; WBC,URINE 0-2 /HPF
--- NOTE | 2018-05-31 13:00 | Diagnostic Imaging Report ---
PROCEDURE: MR imaging of the brain without contrast. TECHNIQUE: Multiplanar, multisequence MR imaging of the brain was performed without contrast. INDICATION: Right-sided facial drooping. COMPARISON: No prior MRI brain studies are available for comparison. Correlation is made with CT angiogram of the head and neck performed earlier the same day. FINDINGS: The diffusion-weighted images are unremarkable. No diffusion restriction is seen to suggest acute ischemia. The normal expected flow-voids within the carotid siphons are seen. No sulcal effacement or midline shift is seen. Ventricular size is normal. Corpus callosum is unremarkable. Sella and parasellar structures are unremarkable. No acute intra-axial or extra-axial hemorrhage is detected. IMPRESSION: Unremarkable noncontrast MRI of the brain. No acute intracranial process is identified. Dictated by: Dictated on workstation # [id number]
--- NOTE | 2018-05-31 13:05 | Diagnostic Imaging Report ---
PROCEDURE: MR imaging cervical spine without contrast. TECHNIQUE: Multiplanar/multisequence MR imaging of the cervical spine was performed without contrast. INDICATION: Right-sided facial drooping. FINDINGS: The normal expected flow-voids within the visualized carotid arteries are normal. The normal flow voids within the vertebral arteries are seen. The curvature and alignment of the cervical spine are normal. There is normal homogeneous signal intensity to the cervical spinal cord. There is some mild degenerative disc disease at multiple levels with a mild broad-based disc/osteophyte complex seen at the C3-4, C4-5, C5-6, and C6-7 levels. No focal disc protrusion is seen. No central canal or neuroforaminal stenosis is seen. IMPRESSION: 1. Mild cervical spondylosis. No focal disc protrusion, central canal, or neuroforaminal narrowing is seen. 2. Flow voids are identified within the vertebral and carotid arteries which is within normal limits. No definite occlusion or dissection is identified. Dictated by: Dictated on workstation # [id number]
--- OUTSIDE RECORDS SUMMARY | 2018-05-31 17:00 | XMS REPORT | Clinical Summary ---
Author Author [facility] Organization [facility] Address Unknown Phone Unavailable Care Team Providers Care Survey Director Name Role Phone Alfred Diaz MD PCP Unavailable Source Comments Some departments are not documenting in the electronic medical record. If you do not see the information that you expected, contact Release of Information in the Health Information Management department at [phone] for further assistance in locating additional records.[facility] Allergies Not on File Medications [...] ID Type Phone Address Plan / Group [facility] MEDICAID [facility] xxxxxxxxxxx Medicaid [employer] [place] Advance Directives Patient has advance care planning documents on file. For more information, please contact: [facility] [address] [place] [address]
[2018-05-31 17:12] VITALS: BP 137/97
--- NOTE | 2018-05-31 17:12 | NUR ---
SAEBLAS Leslie admitted to room CU12-1, with an admitting diagnosis of NEURO DEFICIT, BELLS PALSY, on 05/31/18 from ER via , accompanied by STAFF.BLAS QUEVEDO introduced to surroundings, call light, bed controls, phone, TV, temperature control, lights, meal times, smoking policy, visitor policy, side rail policy, bathrooms and showers. Patient Rights given to patient in the handbook. BLAS QUEVEDO verbalizes understanding that [facility] is not responsible for the loss or damage to any personal effects or valuables that are kept in the patients posession during their hospitalization. The following Patient Care Plans were discussed with the PT: Discharge Planning, HIGH RISK INJURY,FEAR, and ANXIETY. BLAS QUEVEDO verbalizes understanding of Interdisciplinary Patient Education. Patient and family were informed about the Rapid Response Team and its purpose.
--- NOTE | 2018-05-31 17:29 | NUR ---
DR PRICE PAGED REGARDING CONSULT.
[2018-05-31] MEDS: NS IV 1000 ML 1,000 ML IV SCH (18:03)
[2018-05-31 19:30] VITALS: BP 134/96
--- NOTE | 2018-05-31 20:02 | NUR ---
This RN called Dr. Messer regarding pt home meds and c/o midline chest pain of 11/23.
[2018-05-31 20:20] VITALS: BP 134/96
[2018-05-31] MEDS ORDERED: ACETAMINOPHEN 500 MG TAB (TYLENOL) PO PRN (20:30)
[2018-05-31] MEDS ORDERED: NON-FORMULARY MEDICATION 1 EA EA (Insulin Detemir (Levemir Flextouch) 25 UNIT) SQ SCH (21:00)
[2018-05-31] MEDS: TICAGRELOR 90 MG TABLET (BRILINTA) PO SCH (21:23)
[2018-05-31] MEDS: meTOproloL SUCCINATE 50 MG (TOPROL XL) TAB PO SCH (21:23)
[2018-05-31] MEDS: GABAPENTIN 300 MG (NEURONTIN) CAP PO SCH (21:23)
[2018-05-31 21:24] VITALS: BP 133/90
[2018-05-31] MEDS: clonazePAM 0.5 MG (KlonoPIN) TAB PO PRN (21:24)
[2018-05-31] MEDS: inSUlin DETERMIR 1 UNIT/0.01 ML (LEVEMIR) CHARGE PER UNIT SQ SCH (21:24)
[2018-05-31] MEDS ORDERED: RT-ALBUTEROL SULF 2.5 MG/3 ML PRE-MIX VIAL INH PRN (21:30)
[2018-06-01] VITALS: BP 136/85
[2018-06-01 03:55] VITALS: BP 124/86
[2018-06-01 04:15] LABS: CHOLESTEROL 195 MG/DL (< 200); HDL CHOLESTEROL 27 MG/DL (40-60); TRIGLYCERIDES 373 MG/DL (<150); VLDL CHOLESTEROL 75 MG/DL (5-40)
[2018-06-01] MEDS ORDERED: INSULIN LISPRO 20 UNIT SQ SCH (06:00)
[2018-06-01] MEDS: inSUlin ASPART (NovoLOG) 1 UNIT/0.01 ML (CHARGE PER UNIT) SC SCH ×2 (06:21→11:20)
[2018-06-01] MEDS ORDERED: PANTOPRAZOLE 40 MG (PROTONIX) TAB PO SCH (07:00)
[2018-06-01] MEDS: TICAGRELOR 90 MG TABLET (BRILINTA) PO SCH (08:29)
[2018-06-01] MEDS: meTOproloL SUCCINATE 50 MG (TOPROL XL) TAB PO SCH (08:29)
[2018-06-01] MEDS: GABAPENTIN 300 MG (NEURONTIN) CAP PO SCH ×2 (08:29→12:50)
[2018-06-01] MEDS: inSUlin DETERMIR 1 UNIT/0.01 ML (LEVEMIR) CHARGE PER UNIT SQ SCH (08:30)
[2018-06-01 08:37] VITALS: BP 136/88
[2018-06-01] MEDS: clonazePAM 0.5 MG (KlonoPIN) TAB PO PRN (09:03)
--- NOTE | 2018-06-01 09:09 | Short Stay Summary-Hospitalist ---
History of Present Illness HPI/Chief Complaint Pt is a 38yoCF with a PMH of CAD s/p stenting earlier this week with at [facility] , IDDMII, and anxiety disorder who presented to the ER due to concerns about a facial droop. She states this started while she was admitted at [facility] but worsened yesterday morning where she also noted a some slurred speech prompting her to seek evaluation in the ER. She was activated as a code stroke and went emergently to CT scan which was negative. She then underwent CTA and MRI both of which were negative for any acute findings. Given proximity to recent interventions (cath. stent deployment, and balloon angiography) she was admitted for observation. This morning she states her symptoms are still present and not really better or worse. She does complain of pain right behind her right ear. She denies any deficits of her upper or lower extremity. She is requesting discharge home. Source: patient, family Date Seen 06/01/18 Time Seen by a Provider: 09:04 Attending Physician Lizet Messer MD PCP Leyda Muñoz MD Referring Physician Date of Admission May 31, 2018 at 14:50 Home Medications & Allergies Home Medications Reviewed patient Home Medication Reconciliation performed by pharmacy medication reconciliations respiratory support technician and/or nursing. Patients Allergies have been reviewed. Allergies Allergies Coded Allergies coconut (Verified Allergy, Severe, anaphylactic reaction, 07/11/17) ketorolac (Unverified Allergy, Unknown, 08/19/15) Past Zzdxuyh-Igchsp-Obavdt Hx Past Med/Social Hx: Reviewed Nursing Past Med/Soc Hx Patient Social History Alcohol Use: Denies Use Recreational Drug Use: No Drug of Choice: HX RX DRUG OVERDOSES Former Smoker, Quit: Mar 14, 2018 Type Used: Cigarettes 2nd Hand Smoke Exposure: Yes Physical Abuse Screen: No Sexual Abuse: No Recent Foreign Travel: No Contact w/other who traveled: No Recent Hopitalizations: Yes (OVERDOSE 04/12/18, heart cath) Recent Infectious Disease Expo: No Immunizations Up To Date Tetanus Booster (TDap): Unknown Pediatric: No Date of Pneumonia Vaccine: September 09, 2016 Date of Influenza Vaccine: Mar 26, 2018 Seasonal Allergies Seasonal Allergies: No Past Medical History Surgeries: Breast, Cardiac, Section, Coronary Stent, Orthopedic, Tubal Ligation Currently Using CPAP: No Currently Using BIPAP: No Cardiac: Coronary Artery Disease, Heart Attack, High Cholesterol, Hypertension Neurological: Neuropathy Reproductive: No Sexually Transmitted Disease: No HIV/AIDS: No Female Reproductive Disorders: Ovarian Cyst Tubal Ligation Musculoskeletal: Chronic Back Pain Endocrine: Diabetes, Insulin dep Loss of Vision: Denies Hearing Impairment: Denies Psychosocial: Suicide Attempts History of Blood Disorders: No Adverse Reaction to Blood Rivas: No Family History Reviewed Nursing Family Hx Cardiovascular disease 19 FATHER, Onset:Unknown 19 MOTHER, Onset:Unknown Diabetes mellitus 19 FATHER 19 MOTHER Heart Disease, Diabetes, Other Conditions/Hx Review of Systems Constitutional: see HPI EENTM: ear pain Respiratory: No cough Cardiovascular: chest pain (underwent cath earlier this week) Gastrointestinal: abdominal pain Psychiatric/Neurological: See HPI, Anxiety; Denies Weakness; Other (facial droop) Physical Exam Physical Exam Vital Signs Vital Signs - First Documented 05/31/18 05/31/18 05/31/18 10:16 17:08 20:20 Temp 98.4 Pulse 96 Resp 16 B/P (MAP) 179/116 (137) Pulse Ox 98 O2 Delivery Room Air O2 Flow Rate 2.00 FiO2 21 Capillary Refill : Less Than 3 Seconds Height, Weight, BMI Height: 5'2.00" Weight: 150lbs. 7.0oz. 68.053758jo; 27.5 BMI Method:Stated General Appearance: No Apparent Distress, WD/WN, Anxious HEENT: PERRL/EOMI, Other (right facial droop, able to close and open right eyelid) Neck: Full Range of Motion, Normal Inspection Respiratory: Lungs Clear, Normal Breath Sounds, No Accessory Muscle Use Cardiovascular: Regular Rate, Rhythm, No Murmur, Normal Peripheral Pulses Gastrointestinal: Normal Bowel Sounds, Non Tender, Soft Extremity: Non Tender, No Calf Tenderness, No Pedal Edema, Other (MURGUIA equally) Neurologic/Psychiatric: Alert, Oriented x3, Facial Droop (right-sided) Skin: Tattoos/Piercings Results Results/Procedures Labs Patient resulted labs reviewed. Imaging: Reviewed Imaging Report Imaging CT ANGIO HEAD/NECK PROCEDURE: CT angiography of the head and CT angiography of the neck with and without contrast. TECHNIQUE: Contiguous noncontrast images were obtained from the skull base through the vertex. After intravenous contrast administration, helical CT angiography of the neck was performed. Source data was reformatted into multiple MIP projections. Delayed post contrast acquisition was also obtained. INDICATION: Right-sided weakness. FINDINGS: The precontrast head CT demonstrates the ventricles and sulci to be within normal limits. No sulcal effacement is seen. There is no midline shift. No acute intra-axial or extra-axial hemorrhage is detected. The delayed post contrast images are without abnormal enhancing lesion. The CT angiographic portion through the neck does show a three-vessel branching pattern to the aortic arch. The origins appear to be widely patent. Both common carotid arteries are patent. The carotid bifurcations are unremarkable. The visualized proximal internal carotid arteries appear widely patent. The left vertebral artery is dominant. The right vertebral artery is very small. The CTA through the head demonstrates the basilar artery and distal vertebral arteries to be patent. There appears to be flow within bilateral middle cerebral and anterior cerebral arteries. No filling defects to suggest thromboemboli are seen. The peripheral branches appear to opacify normally. IMPRESSION: Unremarkable CTA of the head and neck. No thromboemboli are identified. Date of Exam: 05/31/18 MRI CERVICAL SPINE W/O CONTRAS PROCEDURE: MR imaging cervical spine without contrast. TECHNIQUE: Multiplanar/multisequence MR imaging of the cervical spine was performed without contrast. INDICATION: Right-sided facial drooping. FINDINGS: The normal expected flow-voids within the visualized carotid arteries are normal. The normal flow voids within the vertebral arteries are seen. The curvature and alignment of the cervical spine are normal. There is normal homogeneous signal intensity to the cervical spinal cord. There is some mild degenerative disc disease at multiple levels with a mild broad-based disc/osteophyte complex seen at the C3-4, C4-5, C5-6, and C6-7 levels. No focal disc protrusion is seen. No central canal or neuroforaminal stenosis is seen. IMPRESSION: 1. Mild cervical spondylosis. No focal disc protrusion, central canal, or neuroforaminal narrowing is seen. 2. Flow voids are identified within the vertebral and carotid arteries which is within normal limits. No definite occlusion or dissection is identified. Date of Exam: 05/31/18 MRI BRAIN W/O CONTRAST PROCEDURE: MR imaging of the brain without contrast. TECHNIQUE: Multiplanar, multisequence MR imaging of the brain was performed without contrast. INDICATION: Right-sided facial drooping. COMPARISON: No prior MRI brain studies are available for comparison. Correlation is made with CT angiogram of the head and neck performed earlier the same day. FINDINGS: The diffusion-weighted images are unremarkable. No diffusion restriction is seen to suggest acute ischemia. The normal expected flow-voids within the carotid siphons are seen. No sulcal effacement or midline shift is seen. Ventricular size is normal. Corpus callosum is unremarkable. Sella and parasellar structures are unremarkable. No acute intra-axial or extra-axial hemorrhage is detected. IMPRESSION: Unremarkable noncontrast MRI of the brain. No acute intracranial process is identified. Short Stay Diagnosis Discharge Diagnosis-Short Stay Admission Diagnosis Right sided facial droop Final Discharge Diagnosis [place] Palsy Conclusion Plan Shandon palsy CT, CTA, and MRI negative for CVA Offered treatment with steroids but she declined as she has been unable to tolerate steroids in the past with her blood sugars Recommended eye patch to help protect eye Discussed natural course and how most have complete or near complete resolution Advised follow up with Dr Muñoz next week IDDMI Bloods sugars elevated overnight Significant other at bedside states she has adverse affects from a blood sugar less than 200 so hesitant to increase insulin CAD s/p stenting balloon angiography at [facility] on 05/30 Started on ASA and Brilinta Cardiology consulted, appreciate recs Called and spoke with PCP, not currently on statin as did not tolerate previously GAVE Pt reports being diagnosed with GAVE after endoscopy during stay at admission Continue on PPI Needs to follow with GI as an outpatient Clinical Quality Measures DVT/VTE Risk/Contraindication: RFS Level Per Nursing on Admit: 1=Low/No VTE PPX Stroke: Date of last known well: May 31, 2018 LIZET MESSER MD Jun 01, 2018 09:09
--- NOTE | 2018-06-01 09:54 | Discharge Inst-Simple/Standard ---
Discharge Inst-Standard Discharge Medications New, Converted or Re-Newed RX: Transmitted to Pharmacy Patient Instructions/Follow Up Plan of Care/Instructions/FU: Please continue to take your medications as written. Plese follow up with Dr Muñoz to follow up this hospital stay and your stay at [facility]. Please follow up with Dr Benoit as scheduled. Activity as Tolerated: Yes Discharge Diet: ADA Diet, Cardiac Diet Return to The Hospital For: Worsening facial droop, slurred speech, weakness of your arm or leg, confusion, bleeding, chest pain, shortness of breath, if you feel you are getting worse. LIZET URBAN MD Jun 01, 2018 09:54
[2018-06-01 11:19] VITALS: BP 116/75
[2018-06-01] MEDS ORDERED: ASPIRIN 81 MG CHEW (CHILDREN'S ASA) ONE (12:37)
[2018-06-01] MEDS ORDERED: ASPIRIN 81 MG CHEW (CHILDREN'S ASA) PO SCH (12:45)
--- NOTE | 2018-06-01 12:57 | Consultation-Cardiology ---
HPI-Cardiology Cardiology Consultation: Date of Consultation 06/01/18 Time Seen by a Provider: 12:30 Date of Admission 03/30/19 Attending Physician Lizet Messer MD Admitting Physician Leyda Muñoz MD Consulting Physician ALBER PRICE MD, MA, FACP, FACC, FSCAI, CCDS HPI: Chief Complaint: CC: Drooping of the R angle of the mouth HPI: 38 yo woman who underwent ostial LAD stenting by Dr Montaño on 05/29/18, was d/c 'd from [facility] on 05/30/18, and admitted to Dr Messer at this [facility] on for drooping of the R face that, according to her, started shortly after her card cath of 05/29/18 at [facility] and worsened over the course of 36-48 hours prior to her presentation. She has chronic epigastric and lower chest discomfort that persists after cor intervention. For this she has had endoscopy at [facility] during recent hosp and was diagnosed with GAVE. Has chronic exertional shortness of breath and mild intermittent leg swelling. Denies palp or syncope. Currently feels well and back to usual baseline, with the exception of continuing weakness of R face. Review of Systems-Cardiology Review of Systems Constitutional: malaise, tiredness; No weight loss, No weight gain Eyes: No vision change Ears/Nose/Throat: No ear discharge, No nasal drainage, No recent hearing loss Respiratory: As described under HPI Cardiovascular: As described under HPI Gastrointestinal: No diarrhea, No nausea, No vomiting Genitourinary: No dysuria, No hematuria Musculoskeletal: back pain (Chronic gen pain, including back) Psychiatric/Neurological: As described under HPI Hematologic: No bleeding abnormalities All Other Systems Reviewed Negative Unless Noted: Yes DOA-Gxwymz-Dnawuc Hx Patient Social History Alcohol Use: Denies Use Recreational Drug Use: No Drug of Choice: HX RX DRUG OVERDOSES Type Used: Cigarettes 2nd Hand Smoke Exposure: Yes Recent Foreign Travel: No Recent Infectious Disease Expo: No Hospitalization with Isolation: Denies Physical Abuse Screen: No Sexual Abuse: No Immunizations Up To Date Tetanus Booster (TDap): Unknown Date of Pneumonia Vaccine: September 09, 2016 Date of Influenza Vaccine: Mar 26, 2018 Past Medical History PMH As described under Assessment. Family Medical History Family Medical History: She reports her mother and father both had premature CAD. Family History: Cardiovascular disease 19 FATHER, Onset:Unknown 19 MOTHER, Onset:Unknown Diabetes mellitus 19 FATHER 19 MOTHER Allergies and Home Medications Allergies Coded Allergies: coconut (Verified Allergy, Severe, anaphylactic reaction, 07/11/17) ketorolac (Unverified Allergy, Unknown, 08/19/15) Home Medications Albuterol Sulfate 1 Puff Puff, 2 PUFF INH Q4H PRN for SHORTNESS OF BREATH, ( Reported) 1 PUFF = 90 MCG Aspirin 81 Mg Tab.chew, 324 MG PO DAILY, (Reported) Atorvastatin Calcium 80 Mg Tablet, 80 MG PO DAILY, (Reported) Clonazepam 0.5 Mg Tablet, 0.5 MG PO BID PRN for ANXIETY, (Reported) Fenofibrate Nanocrystallized 160 Mg Tablet, 160 MG PO DAILY, (Reported) Gabapentin 300 Mg Capsule, 300 MG PO TID, (Reported) Insulin Detemir 100 Unit/1 Ml Insuln.pen, 25 UNIT SQ BID, (Reported) Insulin Lispro 100 Unit/1 Ml Insuln.pen, 20 UNIT SQ TIDAC, (Reported) Liraglutide 0.6 Mg/0.1 Ml Pen.injctr, 1.8 MG SQ DAILY, (Reported) Metformin HCl 1,000 Mg Tablet, 1,000 MG PO BID, (Reported) LAST FILLED #60 03-30-18 Metoprolol Succinate 50 Mg Tab.er.24h, 50 MG PO BID, (Reported) LAST FILLED #60 -15-18 Ondansetron 8 Mg Tab.rapdis, 8 MG PO Q6H PRN for NAUSEA/VOMITING-1ST LINE, ( Reported) Pantoprazole Sodium 40 Mg Tablet.dr, 40 MG PO DAILY@0700 Prescribed by: LIZET MESSER on 06/01/18 0950 Ticagrelor 90 Mg Tablet, 90 MG PO BID, (Reported) Patient Home Medication List Home Medication List Reviewed: Yes Physical Exam-Cardiology Physical Exam Vital Signs/I&O 06/01/18 06/01/18 06/01/18 06/01/18 03:55 08:00 08:37 11:19 Temp 97.1 97.9 97.6 Pulse 91 94 101 Resp 17 16 14 B/P (MAP) 124/86 (99) 136/88 (104) 116/75 (89) Pulse Ox 94 100 98 O2 Delivery Room Air Room Air Room Air Room Air 2/16/19 00:00 Intake Total 440 ml Output Total 900 ml Balance -460 ml Capillary Refill : Less Than 3 Seconds Constitutional: AAO x 3, well-developed, well-nourished HEENT: EOMI, hearing is well preserved; No xanthelasmas are seen Neck: No carotid bruit; carotid pulses are 2 + bilaterally, with good upstrokes Respiratory: No accessory muscle use; lungs clear to percussion, lungs clear to auscultation Cardiovascular: regular rate-rhythm, S1 and S2, systolic murmur (faint DOMINIQUE at card base) Gastrointestinal: No tender; soft; No guarding, No rebound; audible bowel sounds Extremities: No clubbing, No cyanosis, No significant edema Neurologic/Psychiatric: oriented x 3, other (Weakness of R side of face: not able to smile on the R or furrow the forehead on the R) Skin: normal color, warm/dry; No rash on exposed areas, No ulcerations on exposed areas Data Review Labs Laboratory Tests 05/31/18 21:33: Glucometer 301H 06/01/18 03:15: Triglycerides Level 373H, Cholesterol Level 195, LDL Cholesterol Direct 105, VLDL Cholesterol 75H, HDL Cholesterol 27L 06/01/18 06:20: Glucometer 191H 06/01/18 11:19: Glucometer 178H Laboratory Tests 05/31/18 09:42 A/P-Cardiology Assessment/Admission Diagnosis R-sided facial weakness, 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 Card cath on 05/28/18: probably greater than 50% ostial LMCA (based on 20- 30 mmHg pressure gradient between aortic and LMCA pressures), 80% ostial LAD ( FFR 0.74 across combination of LMCA and LAD stenoses), 80% RI, mild to mod diff dz of LCX and dominant RCA; patent overlapping stents in prox and mid LAD; LVEDP 14 mmHg; LVEF 70%. Pt sent for CABG, but CV Surg recommended PCI to ostial LAD that was undertaken by Dr Montaño on 05/29/18; IVUS did not indicate significant LMCA disease Gastro-antral vascular ectasia (GAVE), based on endoscopy in May 2018 at [facility] H/o Intubation and [facility] vent in Mar 2018 for amitriptyline and benzodiazepine overdose. Has had a sore throat since - being managed by her pcp H/o palpitations, none recently Chronic diastolic CHF - clinically compensated Pulm nodule being followed by Dr Arroyo. CT chest angio on 03-09-18 showed mildly prominent bilat hilar lymph nodes. Stable 7 mm groundglass micronodular density within the left lower lobe Echocardiogram of 10-25-17 showed LVEF 55-60%. Mild TR. PASP 30 mmHg H/o intermittent, bilat leg swelling. Bilat leg venous Duplex of 10/23/17 did not show any DVT DM II Chronic tobacco use - cessation advised Discussion and Recomendations * I have discussed her case in detail with Dr Montaño of the Cardiology Svce at [facility] * Her card status currently appears stable. Her antiplatelet therapy has been changed from Plavix + ASA to Brilinta + ASA. Low dose ASA (81 mg daily is recommended along with Brilinta) * Management is complex due to multiple comorbidities and chronic, unremitting symptoms * Management of DM II, GAVE, and LMN palsy of the R 7th cranial nerve is with the Med Sve Clinical Quality Measures DVT/VTE Risk/Contraindication: RFS Level Per Nursing on Admit: 1=Low/No VTE PPX Stroke: Date of last known well: May 31, 2018 ALBER PRICE MD FACP FACC CCDS Jun 01, 2018 12:57
[2018-06-01] MEDS: NS IV 1000 ML 1,000 ML IV SCH (14:16)
--- NOTE | 2018-06-01 14:25 | NUR ---
BLAS QUEVEDO demonstrates understanding of discharge instructions and accurately returns instructions upon questioning. Copy of Post-Discharge Instructions and Medication Discharge Instructions given to PT. BLAS QUEVEDO is able to manage continuing needs after discharge. Patients belongings returned to PT. Skin dry and intact; no breakdown noted. Patient discharged from [facility]- on 06/01/18 at 1425. BLAS QUEVEDO left floor via WC, accompanied by STAFF/S.O.
== END 2018-06-01 14:25 | disposition home or self-care (01) ==
LOC: EDUNIT# 09:26 → ER 09:30 → ICU 14:50 → UNDOADMIN 14:50 → ICU 17:10 → UNDODISIN 06-01 14:25
PROVIDERS: ADMIT Family Medicine; ATTEND Family Medicine
DX: G51.0 Bell's palsy (principal); E11.40 Type 2 diabetes mellitus with diabetic neuropathy, unspecified; I25.10 Atherosclerotic heart disease of native coronary artery without angina pectoris; K31.819 Angiodysplasia of stomach and duodenum without bleeding; I10 Essential (primary) hypertension; E78.00 Pure hypercholesterolemia, unspecified; I50.32 Chronic diastolic (congestive) heart failure; I25.2 Old myocardial infarction; R91.8 Other nonspecific abnormal finding of lung field; M79.89 Other specified soft tissue disorders; F17.210 Nicotine dependence, cigarettes, uncomplicated; Z79.4 Long term (current) use of insulin; Z95.5 Presence of coronary angioplasty implant and graft; Z79.82 Long term (current) use of aspirin; Z79.899 Other long term (current) drug therapy
CPT/HCPCS: 36415; 70496; 70498; 70551; 71045; 72141; 80053; 80061; 81000; 82962; 84484; 84703; 85025; 85379; 85610; 85730; 93005; 93041; 96361; 96374; 96375; G0378

== ENCOUNTER 2018-07-04 00:11 | Emergency (ER) | payer SELFPAY ==
[~2018-07-04] VITALS: Ht 157.5 cm; Wt 70.3 kg
[~2018-07-04 00:11] MED LIST changes: +CLON0.5T13 PO; +FENO160T37 PO; -NAPR220C46 PO; +NAPR220C61 PO; +ONDA8TAB13 PO; +PANT40TA3 PO; +TICA90TA PO
[2018-07-04 00:58] LABS: BASOPHILS % (AUTO) 0 % (0-10); EOSINOPHILS # (AUTO) 0.4 10^3/uL (0.0-0.3); EOSINOPHILS % (AUTO) 5 % (0-10); HEMATOCRIT 35 % (35-52); HEMOGLOBIN 11.5 G/DL (11.5-16.0); LYMPHOCYTES # (AUTO) 2.6 X 10^3 (1.0-4.0); LYMPHOCYTES % (AUTO) 38 % (12-44); MEAN CORPUSCULAR HEMOGLOBIN 25 PG (25-34); MEAN CORPUSCULAR HGB CONC 33 G/DL (32-36); MEAN CORPUSCULAR VOLUME 76 FL (80-99); MEAN PLATELET VOLUME 9.1 FL (7.4-10.4); MONOCYTES # (AUTO) 0.5 X 10^3 (0.0-1.0); MONOCYTES % (AUTO) 8 % (0-12); NEUTROPHILS # (AUTO) 3.4 X 10^3 (1.8-7.8); NEUTROPHILS % (AUTO) 49 % (42-75); PLATELET COUNT 389 10^3/uL (130-400); RED CELL DISTRIBUTION WIDTH 14.7 % (10.0-14.5); WHITE BLOOD COUNT 6.9 10^3/uL (4.3-11.0)
[2018-07-04 01:03] LABS: INR 0.8 (0.8-1.4); PROTHROMBIN TIME PATIENT 11.4 SEC (12.2-14.7)
[2018-07-04 01:16] LABS: ALANINE AMINOTRANSFERASE 12 U/L (0-55); ALBUMIN 3.8 GM/DL (3.2-4.5); ALKALINE PHOSPHATASE 115 U/L (40-136); BILIRUBIN,TOTAL 0.3 MG/DL (0.1-1.0); BUN/CREATININE RATIO 16; CALCIUM 8.9 MG/DL (8.5-10.1); CARBON DIOXIDE 18 MMOL/L (21-32); CHLORIDE 104 MMOL/L (98-107); GFR ESTIMATED > 60; GLUCOSE 276 MG/DL (70-105); MAGNESIUM 2.1 MG/DL (1.8-2.4); POTASSIUM 3.6 MMOL/L (3.6-5.0); SODIUM 136 MMOL/L (135-145); TOTAL PROTEIN 7.8 GM/DL (6.4-8.2)
[2018-07-04 01:18] LABS: MYOGLOBIN SERUM 16.1 NG/ML (10.0-92.0)
[2018-07-04] MEDS ORDERED: RX-TRAMADOL 50 MG (ULTRAM) TAB PPK#4 PO STA (01:52)
--- NOTE | 2018-07-04 02:00 | ED Chest Pain ---
General Chief Complaint: Chest Pain Stated Complaint: SLURRED SPEACH,CP,HARD TO SWOLLOW Source: patient Exam Limitations: no limitations History of Present Illness Date Seen by Provider: Jul 04, 2018 Time Seen by Provider: 00:40 Initial Comments This 38-year-old woman presents to the emergency room with 2 primary complaints. First, she complains of difficulty swallowing. 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 Second, she has ongoing left upper chest pain which has worsened today. Patient had a cardiac evaluation with cardiac catheterization on May 27. Patient was referred to [facility] where she was considered for CABG. Patient was alternatively underwent angiography again and was stented. CABG was not performed. Patient has had pain ever since then. She has had no admission to this hospital and has been evaluated for that pain. Pain has been ongoing but worse today. She reports her difficulty swallowing has been a persistent problem and worse today. She particularly has difficulty with solids which seemed to make her choke. She is able to swallow soft foods such as yogurt and consume liquids without difficulty. Allergies and Home Medications Allergies Coded Allergies: coconut (Verified Allergy, Severe, anaphylactic reaction, 07/11/17) ketorolac (Unverified Allergy, Unknown, 08/19/15) Home Medications Albuterol Sulfate 1 Puff Puff, 2 PUFF INH Q4H PRN for SHORTNESS OF BREATH, ( Reported) 1 PUFF = 90 MCG Aspirin 81 Mg Tab.chew, 81 MG PO DAILY, (Reported) Atorvastatin Calcium 80 Mg Tablet, 80 MG PO DAILY, (Reported) Clonazepam 0.5 Mg Tablet, 0.5 MG PO BID PRN for ANXIETY, (Reported) Fenofibrate Nanocrystallized 160 Mg Tablet, 160 MG PO DAILY, (Reported) Gabapentin 300 Mg Capsule, 300 MG PO TID, (Reported) Insulin Detemir 100 Unit/1 Ml Insuln.pen, 25 UNIT SQ BID, (Reported) Insulin Lispro 100 Unit/1 Ml Insuln.pen, 20 UNIT SQ TIDAC, (Reported) Liraglutide 0.6 Mg/0.1 Ml Pen.injctr, 1.8 MG SQ DAILY, (Reported) Metformin HCl 1,000 Mg Tablet, 1,000 MG PO BID, (Reported) LAST FILLED #60 03-30-18 Metoprolol Succinate 50 Mg Tab.er.24h, 50 MG PO BID, (Reported) LAST FILLED #60 03-30-18 Ondansetron 8 Mg Tab.rapdis, 8 MG PO Q6H PRN for NAUSEA/VOMITING-1ST LINE, ( Reported) Pantoprazole Sodium 40 Mg Tablet.dr, 40 MG PO DAILY@0700 Prescribed by: LIZET URBAN on 06/01/18 0950 Ticagrelor 90 Mg Tablet, 90 MG PO BID, (Reported) Patient Home Medication List Home Medication List Reviewed: Yes Review of Systems Review of Systems Constitutional: no symptoms reported EENTM: No Symptoms Reported Respiratory: No Symptoms Reported Cardiovascular: See HPI Gastrointestinal: See HPI Genitourinary: No Symptoms Reported Musculoskeletal: no symptoms reported Skin: no symptoms reported Psychiatric/Neurological: No Symptoms Reported Endocrine: No Symptoms Reported Past Erxosau-Kyreko-Qhytpc Hx Patient Social History Alcohol Use: Denies Use Recreational Drug Use: No Drug of Choice: HX RX DRUG OVERDOSES Smoking Status: Former Smoker Type Used: Cigarettes Former Smoker, Quit: Mar 14, 2018 2nd Hand Smoke Exposure: Yes Recent Foreign Travel: No Contact w/Someone Who Travel: No Recent Hopitalizations: Yes (OVERDOSE 04/12/18, heart cath) Immunizations Up To Date Tetanus Booster (TDap): Unknown PED Vaccines UTD: No Date of Pneumonia Vaccine: September 09, 2016 Date of Influenza Vaccine: Mar 26, 2018 Seasonal Allergies Seasonal Allergies: No Past Medical History Surgeries: Yes Breast, Cardiac, Section, Coronary Stent, Orthopedic, Tubal Ligation Respiratory: Yes (Respiratory failure and intubation March 2018 secondary to overdose) Currently Using CPAP: No Currently Using BIPAP: No Cardiac: Yes (Hx of stent to LAD.) Coronary Artery Disease, Heart Attack, High Cholesterol, Hypertension 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) Neuropathy Reproductive Disorders: No 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 Sexually Transmitted Disease: No HIV/AIDS: No Genitourinary: No Gastrointestinal: Yes ("watermelon stomach disease") Musculoskeletal: Yes (carpal tunnel bilat hands; S/P BACK SURGERY/DISCECTOMY) Chronic Back Pain Endocrine: Yes Diabetes, Insulin dep HEENT: No Loss of Vision: Denies Hearing Impairment: Denies Cancer: No Psychosocial: Yes (OVERDOSE ON RX MEDS REQUIRING INTUBATION 04/12/18) Suicide Attempts Integumentary: No Blood Disorders: No Adverse Reaction/Blood Tranf: No Family Medical History Cardiovascular disease 19 FATHER, Onset:Unknown 19 MOTHER, Onset:Unknown Diabetes mellitus 19 FATHER 19 MOTHER Heart Disease, Diabetes, Other Conditions/Hx Physical Exam Vital Signs Vital Signs - First Documented 07/04/18 00:18 Temp 98.1 Pulse 103 Resp 18 B/P (MAP) 140/100 (113) Pulse Ox 99 O2 Delivery Room Air Capillary Refill : Less Than 3 Seconds Height, Weight, BMI Height: 5'2.00" Weight: 150lbs. 7.0oz. [id number]; 27.5 BMI Method:Stated General Appearance: No Apparent Distress, WD/WN HEENT: PERRL/EOMI, TMs Normal, Pharynx Normal, Other (right-sided facial weakness) Neck: Normal Inspection Respiratory: Lungs Clear, Normal Breath Sounds, No Accessory Muscle Use, No Respiratory Distress Cardiovascular: Regular Rate, Rhythm, No Edema, No Murmur Gastrointestinal: Normal Bowel Sounds, Soft, Tenderness (mild in the upper abdomen) Extremity: Normal Capillary Refill, Normal Inspection, Non Tender, No Pedal Edema, Other (negative Fransisca) Neurologic/Psychiatric: Alert, Oriented x3, Normal Mood/Affect, Other (facial droop on the right including the forehead) Skin: Normal Color, Warm/Dry Procedures/Interventions Date of ETT Placement: Apr 12, 2018 Time of ETT Placement: 405 Progress/Results/Core Measures Results/Orders Lab Results Laboratory Tests Test 07/04/18 00:55 Range/Units White Blood Count 6.9 4.3-11.0 10^3/uL Red Blood Count 4.55 4.35-5.85 10^6/uL Hemoglobin 11.5 11.5-16.0 G/DL Hematocrit 35 35-52 % Mean Corpuscular Volume 76 L 80-99 FL Mean Corpuscular Hemoglobin 25 25-34 PG Mean Corpuscular Hemoglobin Concent 33 32-36 G/DL Red Cell Distribution Width 14.7 H 10.0-14.5 % Platelet Count 389 130-400 10^3/uL Mean Platelet Volume 9.1 7.4-10.4 FL Neutrophils (%) (Auto) 49 42-75 % Lymphocytes (%) (Auto) 38 12-44 % Monocytes (%) (Auto) 8 0-12 % Eosinophils (%) (Auto) 5 0-10 % Basophils (%) (Auto) 0 0-10 % Neutrophils # (Auto) 3.4 1.8-7.8 X 10^3 Lymphocytes # (Auto) 2.6 1.0-4.0 X 10^3 Monocytes # (Auto) 0.5 0.0-1.0 X 10^3 Eosinophils # (Auto) 0.4 H 0.0-0.3 10^3/uL Basophils # (Auto) 0.0 0.0-0.1 10^3/uL Prothrombin Time 11.4 L 12.2-14.7 SEC INR Comment 0.8 0.8-1.4 Activated Partial Thromboplast Time 31 24-35 SEC Sodium Level 136 135-145 MMOL/L Potassium Level 3.6 3.6-5.0 MMOL/L Chloride Level 104 98-107 MMOL/L Carbon Dioxide Level 18 L 21-32 MMOL/L Anion Gap 14 5-14 MMOL/L Blood Urea Nitrogen 11 7-18 MG/DL Creatinine 0.70 0.60-1.30 MG/DL Estimat Glomerular Filtration Rate > 60 BUN/Creatinine Ratio 16 Glucose Level 276 H 70-105 MG/DL Calcium Level 8.9 8.5-10.1 MG/DL Corrected Calcium 9.1 8.5-10.1 MG/DL Magnesium Level 2.1 1.8-2.4 MG/DL Total Bilirubin 0.3 0.1-1.0 MG/DL Aspartate Amino Transf (AST/SGOT) 13 5-34 U/L Alanine Aminotransferase (ALT/SGPT) 12 0-55 U/L Alkaline Phosphatase 115 40-136 U/L Myoglobin 16.1 10.0-92.0 NG/ML Troponin I < 0.028 <0.028 NG/ML Total Protein 7.8 6.4-8.2 GM/DL Albumin 3.8 3.2-4.5 GM/DL Lipase 56 8-78 U/L My Orders Orders - VIN PINEDA MD Cbc With Automated Diff (07/04/18 00:52) Magnesium (07/04/18 00:52) Chest 1 View, Ap/Pa Only (07/04/18 00:52) Ekg Tracing (07/04/18 00:52) Cardiac Profile 1 (07/04/18 00:52) Comprehensive Metabolic Panel (07/04/18 00:52) Myoglobin Serum (07/04/18 00:52) Protime With Inr (07/04/18 00:52) Partial Thromboplastin Time (07/04/18 00:52) O2 (07/04/18 00:52) Monitor-Rhythm Ecg Trace Only (07/04/18 00:52) Saline Lock/Iv-Start (07/04/18 00:52) Lipase (07/04/18 01:02) Rx-Tramadol Hcl (Rx-Ultram) (07/04/18 01:52) Vital Signs/I&O 07/04/18 07/04/18 07/04/18 00:18 00:18 02:05 Temp 98.1 98.1 Pulse 103 91 Resp 18 18 B/P (MAP) 140/100 (113) 132/87 (102) Pulse Ox 99 99 O2 Delivery Room Air Room Air Room Air Progress Progress Note : Progress Note Patient underwent a chest pain assessment. Findings were unremarkable. This seems to be a long-term problem ongoing for greater than one month. She has been assessed twice now since onset of chest pain. 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 For her dysphagia, I recommended she seek referral to a speech pathologist and swallow study. Until then, I recommended that she stick with clear liquids and soft foods. She is to call her primary care provider and housekeeping and laundry team leader in the morning. Patient did demonstrate ability to drink water without any difficulty while in the ER. Initial ECG Impression Date: Jul 04, 2018 Initial ECG Impression Time: 01:23 Initial ECG Rate: 91 Initial ECG Rhythm: Normal Sinus Initial ECG Intervals: Normal Initial ECG Impression: Normal Comment Normal sinus rhythm with no ST elevation or depression. No abnormal intervals or axis deviation. Diagnostic Imaging Diagonstic Imaging: Xray Plain Films/CT/US/NM/MRI: chest Comments Chest x-ray viewed by me. Report not yet available. No acute abnormalities appreciated. Departure Impression Primary Impression: Dysphasia Additional Impression: Chronic chest pain Disposition: HOME, SELF-CARE Condition: Stable Departure-Patient Inst. Decision time for Depature: 01:57 Referrals: BRI THOMAS MD (PCP/Family) Primary Care Physician Patient Instructions: Abdullahi's Palsy, Chest Pain (DC) Add. Discharge Instructions: You may use Tylenol (acetaminophen) and/or Ultram (tramadol) for pain. Contact Dr. Thomas and Dr. Benoit tomorrow for follow-up. Discuss referral for speech pathology and swallow study. Until then, continue with soft and liquid foods to avoid choking. Return to care if you have worsening symptoms. All discharge instructions reviewed with patient and/or family. Voiced understanding. Copy Copies To 1: ALBER BENOIT MD FACP FACC CCDS Copies To 2: BRI THOMAS MD, JOSHUA T MD Jul 04, 2018 02:00
[2018-07-04 02:05] VITALS: BP 132/87
--- NOTE | 2018-07-04 05:31 | Diagnostic Imaging Report ---
INDICATION: Chest discomfort COMPARISON: 05/31/2018 FINDINGS: Single frontal view of the chest demonstrates normal heart size and pulmonary vascularity. The lungs are well aerated and clear. No large pleural effusion or pneumothorax is seen. The visualized osseous structures show no acute abnormalities. IMPRESSION: 1. No acute cardiopulmonary process. Dictated by: Dictated on workstation # [id number]
== END 2018-07-04 02:05 | disposition home or self-care (01) ==
LOC: EDUNIT# 00:11 → ER 00:13
DX: R13.10 Dysphagia, unspecified (principal); R07.9 Chest pain, unspecified; G89.29 Other chronic pain; I25.10 Atherosclerotic heart disease of native coronary artery without angina pectoris; G51.0 Bell's palsy; I10 Essential (primary) hypertension; E78.00 Pure hypercholesterolemia, unspecified; E11.40 Type 2 diabetes mellitus with diabetic neuropathy, unspecified; I25.2 Old myocardial infarction; Z88.4 Allergy status to anesthetic agent; Z79.51 Long term (current) use of inhaled steroids; Z79.82 Long term (current) use of aspirin; Z98.1 Arthrodesis status; Z79.4 Long term (current) use of insulin; Z91.5 Personal history of self-harm; Z82.49 Family history of ischemic heart disease and other diseases of the circulatory system; Z87.891 Personal history of nicotine dependence; Z98.890 Other specified postprocedural states; Z95.5 Presence of coronary angioplasty implant and graft; Z98.51 Tubal ligation status; Z87.09 Personal history of other diseases of the respiratory system
CPT/HCPCS: 36415; 71045; 80053; 83690; 83735; 83874; 84484; 85025; 85610; 85730; 93005; 93041

== ENCOUNTER 2018-07-10 19:28 | Emergency (ER) | payer OTHER ==
[~2018-07-10] VITALS: Ht 157.5 cm; Wt 70.5 kg
--- OUTSIDE RECORDS SUMMARY | 2018-07-10 19:34 | XMS REPORT | Clinical Summary ---
Author Author [facility] Organization [facility] Address Unknown Phone Unavailable Care Team Providers Care Ota Name Role Phone Alfred Diaz MD PCP Unavailable Source Comments Some departments are not documenting in the electronic medical record. If you do not see the information that you expected, contact Release of Information in the Health Information Management department at [phone] for further assistance in locating additional records.[facility] Allergies Not on File Medications Not on [...] Not on filefrom Last 3 Months Insurance Type Payer Benefit Subscriber ID Effective Phone Address Plan / Dates Group Medicaid [facility] [employer] xxxxxxxxxxx 2013- COMMUNITY Present PLAN [place] Advance Directives Patient has advance care planning documents on file. For more information, please contact: [facility] [address] [place] [address]
--- NOTE | 2018-07-10 19:54 | ED Integumentary General ---
General Stated Complaint: SITE OF HEART CATH IS RED/PAINFUL Source: patient, family () Exam Limitations: no limitations History of Present Illness Date Seen by Provider: Jul 10, 2018 Time Seen by Provider: 19:50 Initial Comments 38-year-old female who presents to the emergency room with presents to the emergency room accompanied by her for complaints of heart cath site red and painful. She reports that when she woke up this morning she noticed the the redness and tenderness to the area. She reports that she called her office 365 consultant 's office and they informed her to come to the emergency room. She was unable to come to the emergency room this morning because she was in court all day long. On arrival to the emergency room she reports that her symptoms have resolved. On exam there is no redness to the skin or surrounding tissue. There is no swelling. There is no pain with palpation to the area. There is no lumps or firmness to the area. Heart catheter was on the second of this month. Allergies and Home Medications Allergies Coded Allergies: coconut (Verified Allergy, Severe, anaphylactic reaction, 07/11/17) ketorolac (Unverified Allergy, Unknown, 08/19/15) Home Medications Albuterol Sulfate 1 Puff Puff, 2 PUFF INH Q4H PRN for SHORTNESS OF BREATH, ( Reported) 1 PUFF = 90 MCG Aspirin 81 Mg Tab.chew, 81 MG PO DAILY, (Reported) Atorvastatin Calcium 80 Mg Tablet, 80 MG PO DAILY, (Reported) Clonazepam 0.5 Mg Tablet, 0.5 MG PO BID PRN for ANXIETY, (Reported) Fenofibrate Nanocrystallized 160 Mg Tablet, 160 MG PO DAILY, (Reported) Gabapentin 300 Mg Capsule, 300 MG PO TID, (Reported) Insulin Detemir 100 Unit/1 Ml Insuln.pen, 25 UNIT SQ BID, (Reported) Insulin Lispro 100 Unit/1 Ml Insuln.pen, 20 UNIT SQ TIDAC, (Reported) Liraglutide 0.6 Mg/0.1 Ml Pen.injctr, 1.8 MG SQ DAILY, (Reported) Metformin HCl 1,000 Mg Tablet, 1,000 MG PO BID, (Reported) LAST FILLED #60 18 Metoprolol Succinate 50 Mg Tab.er.24h, 50 MG PO BID, (Reported) LAST FILLED #60 18 Ondansetron 8 Mg Tab.rapdis, 8 MG PO Q6H PRN for NAUSEA/VOMITING-1ST LINE, ( Reported) Pantoprazole Sodium 40 Mg Tablet.dr, 40 MG PO DAILY@0700 Prescribed by: LIZET URBAN on 06/01/18 0950 Ticagrelor 90 Mg Tablet, 90 MG PO BID, (Reported) Past Gvsdqrz-Ehgeqz-Uywkjy Hx Patient Social History Drug of Choice: HX RX DRUG OVERDOSES Type Used: Cigarettes Former Smoker, Quit: Mar 14, 2018 2nd Hand Smoke Exposure: Yes Recent Foreign Travel: No Contact w/Someone Who Travel: No Recent Hopitalizations: Yes (OVERDOSE 04/12/18, heart cath) Immunizations Up To Date Tetanus Booster (TDap): Unknown PED Vaccines UTD: No Date of Pneumonia Vaccine: September 09, 2016 Date of Influenza Vaccine: Mar 26, 2018 Seasonal Allergies Seasonal Allergies: No Past Medical History Surgeries: Yes Breast, Cardiac, Section, Coronary Stent, Orthopedic, Tubal Ligation Respiratory: Yes (Respiratory failure and intubation March 2018 secondary to overdose) Currently Using CPAP: No Currently Using BIPAP: No Cardiac: Yes (Hx of stent to LAD.) Coronary Artery Disease, Heart Attack, High Cholesterol, Hypertension 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) Neuropathy Reproductive Disorders: No 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 Sexually Transmitted Disease: No HIV/AIDS: No Genitourinary: No Gastrointestinal: Yes ("watermelon stomach disease") Musculoskeletal: Yes (carpal tunnel bilat hands; S/P BACK SURGERY/DISCECTOMY) Chronic Back Pain Endocrine: Yes Diabetes, Insulin dep HEENT: No Loss of Vision: Denies Hearing Impairment: Denies Cancer: No Psychosocial: Yes (OVERDOSE ON RX MEDS REQUIRING INTUBATION 04/12/18) Suicide Attempts Integumentary: No Blood Disorders: No Adverse Reaction/Blood Tranf: No Family Medical History Cardiovascular disease 19 FATHER, Onset:Unknown 19 MOTHER, Onset:Unknown Diabetes mellitus 19 FATHER 19 MOTHER Heart Disease, Diabetes, Other Conditions/Hx Physical Exam Vital Signs Capillary Refill : Procedures/Interventions Date of ETT Placement: Apr 12, 2018 Time of ETT Placement: 0406 Departure Impression Primary Impression: Status post cardiac catheterization Disposition: 01 HOME, SELF-CARE Condition: Stable/Unchanged Departure-Patient Inst. Decision time for Depature: 19:52 Referrals: BRI THOMAS MD (PCP/Family) Primary Care Physician Patient Instructions: How to Prevent Surgical Site Infections Add. Discharge Instructions: Watch for signs of infection such as increased redness, swelling, drainage, pain. If any of your symptoms should return follow-up with your office [employer] consultant or presents to the emergency room. Return back to the emergency room for worsening symptoms or concerns as needed. Follow-up with your primary care provider within 1 week for recheck. PRASHANT FELIX Jul 10, 2018 19:54
[2018-07-10 19:56] VITALS: BP 138/89
== END 2018-07-10 19:56 | disposition home or self-care (01) ==
LOC: EDUNIT# 19:28 → ER 19:30
DX: G89.18 Other acute postprocedural pain (principal); T82.847A Pain due to cardiac prosthetic devices, implants and grafts, initial encounter; I25.10 Atherosclerotic heart disease of native coronary artery without angina pectoris; I25.2 Old myocardial infarction; I10 Essential (primary) hypertension; E78.00 Pure hypercholesterolemia, unspecified; E11.40 Type 2 diabetes mellitus with diabetic neuropathy, unspecified; Z88.5 Allergy status to narcotic agent; Z91.018 Allergy to other foods; Z79.82 Long term (current) use of aspirin; Z79.4 Long term (current) use of insulin; Z87.891 Personal history of nicotine dependence; Z95.5 Presence of coronary angioplasty implant and graft; Z98.51 Tubal ligation status; Z82.49 Family history of ischemic heart disease and other diseases of the circulatory system
CPT/HCPCS: 99281

== ENCOUNTER 2018-07-12 15:48 | Emergency (ER) | payer OTHER ==
[~2018-07-12] VITALS: Ht 157.5 cm; Wt 70.3 kg
[2018-07-12] MEDS ORDERED: morphine INJ 10 MG/ML 1ML (SYR OR VIAL) IVP STA (16:03)
--- NOTE | 2018-07-12 16:11 | ED Chest Pain ---
General Stated Complaint: CHEST PAIN History of Present Illness Date Seen by Provider: Jul 12, 2018 Time Seen by Provider: 15:56 This is a 38-year-old female with a history of coronary artery disease, most recent stent placement about 2 weeks ago at outside hospital here today with chest pain. She's been having intermittent chest pain for the last 2 weeks since her most recent hospitalization. This is sharp, substernal and nonradiating, not pleuritic. No shortness of breath. No paresthesias in the extremities. She has not had any unilateral leg swelling although she has chronic issues with symmetrical mild leg swelling, not worse at this time. The pain started at rest within the last hour. It is constant, moderate in severity. She is trying to quit smoking. She denies drug use. Allergies and Home Medications Allergies Coded Allergies: coconut (Verified Allergy, Severe, anaphylactic reaction, 07/11/17) ketorolac (Unverified Allergy, Unknown, 08/19/15) Home Medications Albuterol Sulfate 1 Puff Puff, 2 PUFF INH Q4H PRN for SHORTNESS OF BREATH, ( Reported) 1 PUFF = 90 MCG Aspirin 81 Mg Tab.chew, 81 MG PO DAILY, (Reported) Atorvastatin Calcium 80 Mg Tablet, 80 MG PO DAILY, (Reported) Clonazepam 0.5 Mg Tablet, 0.5 MG PO BID PRN for ANXIETY, (Reported) Fenofibrate Nanocrystallized 160 Mg Tablet, 160 MG PO DAILY, (Reported) Gabapentin 300 Mg Capsule, 300 MG PO TID, (Reported) Insulin Detemir 100 Unit/1 Ml Insuln.pen, 25 UNIT SQ BID, (Reported) Insulin Lispro 100 Unit/1 Ml Insuln.pen, 20 UNIT SQ TIDAC, (Reported) Liraglutide 0.6 Mg/0.1 Ml Pen.injctr, 1.8 MG SQ DAILY, (Reported) Metformin HCl 1,000 Mg Tablet, 1,000 MG PO BID, (Reported) LAST FILLED #60 18 Metoprolol Succinate 50 Mg Tab.er.24h, 50 MG PO BID, (Reported) LAST FILLED #60 03-30-18 Ondansetron 8 Mg Tab.rapdis, 8 MG PO Q6H PRN for NAUSEA/VOMITING-1ST LINE, ( Reported) Pantoprazole Sodium 40 Mg Tablet.dr, 40 MG PO DAILY@0700 Prescribed by: LIZET URBAN on 06/01/18 0950 Ticagrelor 90 Mg Tablet, 90 MG PO BID, (Reported) Patient Home Medication List Home Medication List Reviewed: Yes Review of Systems Review of Systems Constitutional: no symptoms reported EENTM: No Symptoms Reported Respiratory: No Symptoms Reported Cardiovascular: See HPI Gastrointestinal: No Symptoms Reported Genitourinary: No Symptoms Reported Musculoskeletal: no symptoms reported Skin: no symptoms reported Psychiatric/Neurological: No Symptoms Reported Endocrine: No Symptoms Reported Hematologic/Lymphatic: No Symptoms Reported Past Awznfxt-Kjqyzw-Mdtddp Hx Past Med/Social Hx: Reviewed Nursing Past Med/Soc Hx Patient Social History Drug of Choice: HX RX DRUG OVERDOSES Type Used: Cigarettes Former Smoker, Quit: Mar 14, 2018 2nd Hand Smoke Exposure: Yes Recent Foreign Travel: No Contact w/Someone Who Travel: No Recent Hopitalizations: Yes (OVERDOSE 04/12/18, heart cath) Immunizations Up To Date Tetanus Booster (TDap): Unknown PED Vaccines UTD: No Date of Pneumonia Vaccine: September 09, 2016 Date of Influenza Vaccine: Mar 26, 2018 Seasonal Allergies Seasonal Allergies: No Past Medical History Surgeries: Yes Breast, Cardiac, Section, Coronary Stent, Orthopedic, Tubal Ligation Respiratory: Yes (Respiratory failure and intubation March 2018 secondary to overdose) Currently Using CPAP: No Currently Using BIPAP: No Cardiac: Yes (Hx of stent to LAD.) Coronary Artery Disease, Heart Attack, High Cholesterol, Hypertension 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) Neuropathy Reproductive Disorders: No Female Reproductive Disorders: Ovarian Cyst TOEING STOCKINGS History: Tubal Ligation Sexually Transmitted Disease: No HIV/AIDS: No Genitourinary: No Gastrointestinal: Yes ("watermelon stomach disease") Musculoskeletal: Yes (carpal tunnel bilat hands; S/P BACK SURGERY/DISCECTOMY) Chronic Back Pain Endocrine: Yes Diabetes, Insulin dep HEENT: No Loss of Vision: Denies Hearing Impairment: Denies Cancer: No Psychosocial: Yes (OVERDOSE ON RX MEDS REQUIRING INTUBATION 04/12/18) Suicide Attempts Integumentary: No Blood Disorders: No Adverse Reaction/Blood Tranf: No Family Medical History Cardiovascular disease 19 FATHER, Onset:Unknown 19 MOTHER, Onset:Unknown Diabetes mellitus 19 FATHER 19 MOTHER Heart Disease, Diabetes, Other Conditions/Hx Physical Exam Vital Signs Vital Signs - First Documented 07/12/18 15:52 Temp 98.0 Pulse 98 Resp 18 B/P (MAP) 139/88 (105) Pulse Ox 100 O2 Delivery Room Air Capillary Refill : Height, Weight, BMI Height: 5'2.00" Weight: 155lbs. 7.0oz. [id number]; 27.5 BMI Method:Stated General Appearance: No Apparent Distress HEENT: PERRL/EOMI, Moist Mucous Membranes Neck: Supple; No JVD Respiratory: Lungs Clear Cardiovascular: Regular Rate, Rhythm, No Edema, No JVD, No Murmur, Normal Peripheral Pulses; No Friction Rub; Other (mild nonspecific tenderness to palpation of the anterior chest wall without crepitation or other palpatory abnormality) Gastrointestinal: Non Tender, Soft Extremity: No Calf Tenderness Neurologic/Psychiatric: Alert, No Motor/Sensory Deficits, Other (right upper and lower facial droop consistent with stated history of Abdullahi palsy) Skin: Warm/Dry Procedures/Interventions Date of ETT Placement: Apr 12, 2018 Time of ETT Placement: 6 Progress/Results/Core Measures Results/Orders Lab Results Laboratory Tests Test 07/12/18 16:08 Range/Units White Blood Count 6.5 4.3-11.0 10^3/uL Red Blood Count 4.40 4.35-5.85 10^6/uL Hemoglobin 10.6 L 11.5-16.0 G/DL Hematocrit 34 L 35-52 % Mean Corpuscular Volume 77 L 80-99 FL Mean Corpuscular Hemoglobin 24 L 25-34 PG Mean Corpuscular Hemoglobin Concent 31 L 32-36 G/DL Red Cell Distribution Width 14.5 10.0-14.5 % Platelet Count 417 H 130-400 10^3/uL Mean Platelet Volume 8.7 7.4-10.4 FL Sodium Level 136 135-145 MMOL/L Potassium Level 3.7 3.6-5.0 MMOL/L Chloride Level 99 98-107 MMOL/L Carbon Dioxide Level 23 21-32 MMOL/L Anion Gap 14 5-14 MMOL/L Blood Urea Nitrogen 9 7-18 MG/DL Creatinine 0.48 L 0.60-1.30 MG/DL Estimat Glomerular Filtration Rate > 60 BUN/Creatinine Ratio 19 Glucose Level 372 H 70-105 MG/DL Calcium Level 8.6 8.5-10.1 MG/DL Corrected Calcium 8.8 8.5-10.1 MG/DL Total Bilirubin 0.3 0.1-1.0 MG/DL Aspartate Amino Transf (AST/SGOT) 15 5-34 U/L Alanine Aminotransferase (ALT/SGPT) 20 0-55 U/L Alkaline Phosphatase 117 40-136 U/L Troponin T < 6 <=10 NG/L Total Protein 7.1 6.4-8.2 GM/DL Albumin 3.7 3.2-4.5 GM/DL My Orders Orders - KATIANA ESTEVES T DO Chest 1 View Ap/Pa Only (07/12/18 15:53) Ekg Tracing (07/12/18 15:53) Comprehensive Metabolic Panel (07/12/18 15:53) Monitor-Rhythm Ecg Trace Only (07/12/18 15:53) Saline Lock/Iv-Start (07/12/18 15:53) Cbc No Diff (07/12/18 15:53) Troponin T (07/12/18 15:53) Morphine Injection (Morphine Injection (07/12/18 16:03) Aspirin Chewable Tablet (Baby Aspirin Ch (07/12/18 18:15) Vital Signs/I&O 07/12/18 15:52 Temp 98.0 Pulse 98 Resp 18 B/P (MAP) 139/88 (105) Pulse Ox 100 O2 Delivery Room Air Progress Progress Note #1: Progress Note This is a 38-year-old female with a history of coronary artery disease, last stented 2 weeks ago, who complains of chest pain starting about an hour ago. She has had intermittent chest pain for the last 2 weeks at least identical to today's episode. There was no response to [address] to the hospital. Vitals are stable. Physical exam is unremarkable. ECG is similar to one obtained a week ago (see documentation below). We can treat with morphine. We will check a chest x-ray, troponin, basic labs. I will consult patient's contact agent. She is PERC negative, symptoms are not suggestive of dissection or mediastinitis. Progress Note #2: Progress Note I discussed the case with patient's contact agent Dr. Benoit who knows the patient well. He did recommend that patient could be discharged if a second troponin was negative 6 hours after onset of pain, with note made that patient has been having chest pain very frequently with negative workups, however that she does have known significant coronary artery disease and as a result will need to be ruled out. I spoke with the patient and the family, I offered that they can stay in the emergency department until 6 hours after onset of pain for repeat troponin and can be discharged if that is negative, alternatively I offered admission to any hospital where patient has been treated recently, I offered admission to our parent [facility] in [place], patient is feeling better and just wants to go home, she does not want to wait for a repeat troponin. We did speak about risk of missed CO, that patient can be a symptomatically now but could be at risk for fatal dysrhythmia later on if we do not make the diagnosis, we spoke about acute CHF. Patient is aware of these risks including risk of , permanent disability, but she would prefer to go home. She appears to have decision-making capacity. She will call 911 or return to the nearest emergency department immediately for any recurrence of her symptoms or for the development of new or concerning symptoms. Otherwise she will call her doctor on Sunday for a prompt outpatient follow-up visit. EKG : Comment 1551: Normal sinus rhythm rate of 100. Low voltages without electrical alternans. Q waves in 3 and aVF, T-wave flattening/inversion in lead 3. Compared to ECG from 07/04/18 findings in the inferior leads are stable, there has been resolution of anterior Q waves although there is leftward rotation in the precordial leads today. Departure Impression Primary Impression: Chest pain Disposition: 07 AGAINST MEDICAL ADVICE Condition: Against Medical Advice Departure-Patient Inst. Referrals: BRI THOMAS MD (PCP/Family) Primary Care Physician Patient Instructions: Chest Pain (DC) KATIANA ESTEVES DO Jul 12, 2018 16:11
[2018-07-12 16:16] LABS: HEMOGLOBIN 10.6 G/DL (11.5-16.0); MEAN PLATELET VOLUME 8.7 FL (7.4-10.4); RED CELL DISTRIBUTION WIDTH 14.5 % (10.0-14.5); WHITE BLOOD COUNT 6.5 10^3/uL (4.3-11.0)
[2018-07-12 16:30] VITALS: BP 107/70
[2018-07-12 16:34] LABS: ALKALINE PHOSPHATASE 117 U/L (40-136); BILIRUBIN,TOTAL 0.3 MG/DL (0.1-1.0); BUN/CREATININE RATIO 19; CALCIUM 8.6 MG/DL (8.5-10.1); CARBON DIOXIDE 23 MMOL/L (21-32); CHLORIDE 99 MMOL/L (98-107); CREATININE SERUM 0.48 MG/DL (0.60-1.30); GFR ESTIMATED > 60; GLUCOSE 372 MG/DL (70-105); POTASSIUM 3.7 MMOL/L (3.6-5.0); SODIUM 136 MMOL/L (135-145)
[2018-07-12 16:35] LABS: ALANINE AMINOTRANSFERASE 20 U/L (0-55); ALBUMIN 3.7 GM/DL (3.2-4.5); TOTAL PROTEIN 7.1 GM/DL (6.4-8.2)
--- NOTE | 2018-07-12 16:36 | Diagnostic Imaging Report ---
INDICATION: Pain. FINDINGS: The lungs are clear. The heart and vessels are normal. There is no effusion or pneumothorax. IMPRESSION: Negative. Dictated by: Dictated on workstation # [id number]
[2018-07-12 17:00] VITALS: BP 108/76
[2018-07-12 17:30] VITALS: BP 129/84
[2018-07-12 18:00] VITALS: BP 137/84
[2018-07-12 18:08] VITALS: BP 137/84
[2018-07-12] MEDS ORDERED: ASPIRIN 81 MG CHEW (CHILDREN'S ASA) PO ONE (18:15)
== END 2018-07-12 18:08 | disposition left against medical advice (07) ==
LOC: EDUNIT# 15:48 → ER FS 15:49
DX: R07.89 Other chest pain (principal); I25.10 Atherosclerotic heart disease of native coronary artery without angina pectoris; I25.2 Old myocardial infarction; E78.00 Pure hypercholesterolemia, unspecified; E11.40 Type 2 diabetes mellitus with diabetic neuropathy, unspecified; I10 Essential (primary) hypertension; G51.0 Bell's palsy; F17.210 Nicotine dependence, cigarettes, uncomplicated; Z88.7 Allergy status to serum and vaccine; Z87.448 Personal history of other diseases of urinary system; Z91.5 Personal history of self-harm; Z82.49 Family history of ischemic heart disease and other diseases of the circulatory system; Z87.891 Personal history of nicotine dependence; Z98.51 Tubal ligation status; Z98.890 Other specified postprocedural states; Z79.82 Long term (current) use of aspirin; Z79.4 Long term (current) use of insulin; Z95.5 Presence of coronary angioplasty implant and graft
CPT/HCPCS: 36415; 71045; 80053; 84484; 85027; 93005; 93041; 96374

== ENCOUNTER 2018-07-30 18:15 | Emergency (ER) | payer OTHER ==
[~2018-07-30] VITALS: Ht 157.5 cm; Wt 70.3 kg
--- NOTE | 2018-07-30 18:41 | ED Integumentary General ---
General Chief Complaint: Bite-Animal/Human/Insect Stated Complaint: TICK BITE ON BACK Source: patient, other (significant other) History of Present Illness Date Seen by Provider: Jul 30, 2018 Time Seen by Provider: 18:20 Initial Comments 38 yo F presents with complaints of Right arm pain for over a week and over 2 weeks of nausea and malaise. She also reports having a tick bite in middle of her back about 2 weeks ago. She is unsure if they are related as she has had issues with nausea for awhile now. She also has had issues off and on with her arms. She thinks the tick bite may be making it all worse. She also feel that the area where she has the tick bite still has head of the tick in place. She reports that that area is tender to touch. There is some redness to this area. There's been no drainage from it. She has had no fevers at home but has felt like she had some chills. She has an appointment to see her doctor next week but says it's hard to get in to see Dr. Thomas and so she came to the ER tonight because she could not eat due to being nauseated tonight at supper. Allergies and Home Medications Allergies Coded Allergies: coconut (Verified Allergy, Severe, anaphylactic reaction, 07/30/18) ketorolac (Unverified Allergy, Unknown, 07/30/18) Home Medications Albuterol Sulfate 1 Puff Puff, 2 PUFF INH Q4H PRN for SHORTNESS OF BREATH, ( Reported) 1 PUFF = 90 MCG Aspirin 81 Mg Tab.chew, 81 MG PO DAILY, (Reported) Atorvastatin Calcium 80 Mg Tablet, 80 MG PO DAILY, (Reported) Clonazepam 0.5 Mg Tablet, 0.5 MG PO BID PRN for ANXIETY, (Reported) Doxycycline Hyclate 100 Mg Tablet, 100 MG PO BID Prescribed by: MURIEL CUEVAS on 07/30/181945 Fenofibrate Nanocrystallized 160 Mg Tablet, 160 MG PO DAILY, (Reported) Gabapentin 300 Mg Capsule, 300 MG PO TID, (Reported) Hydrocodone Bit/Acetaminophen 1 Tab Tab, 1 EACH PO Q6H PRN for PAIN-SEVERE Prescribed by: MURIEL CUEVAS on 07/30/181945 Insulin Detemir 100 Unit/1 Ml Insuln.pen, 25 UNIT SQ BID, (Reported) Insulin Lispro 100 Unit/1 Ml Insuln.pen, 20 UNIT SQ TIDAC, (Reported) Liraglutide 0.6 Mg/0.1 Ml Pen.injctr, 1.8 MG SQ DAILY, (Reported) Metformin HCl 1,000 Mg Tablet, 1,000 MG PO BID, (Reported) LAST FILLED #60 03-30-18 Metoprolol Succinate 50 Mg Tab.er.24h, 50 MG PO BID, (Reported) LAST FILLED #60 18 Ondansetron 8 Mg Tab.rapdis, 8 MG PO Q6H PRN for NAUSEA/VOMITING-1ST LINE, ( Reported) Pantoprazole Sodium 40 Mg Tablet.dr, 40 MG PO DAILY@0700 Prescribed by: LIZET URBAN on 06/01/18 0950 Promethazine HCl 25 Mg Tablet, 25 MG PO Q6H PRN for NAUSEA/VOMITING Prescribed by: MURIEL CUEVAS on 07/30/18 194 Ticagrelor 90 Mg Tablet, 90 MG PO BID, (Reported) Patient Home Medication List Home Medication List Reviewed: Yes Review of Systems Review of Systems Constitutional: see HPI; No diaphoresis; malaise EENTM: no symptoms reported Respiratory: no symptoms reported Cardiovascular: No chest pain Gastrointestinal: No diarrhea; nausea; No vomiting Genitourinary: no symptoms reported Musculoskeletal: see HPI Skin: see HPI Psychiatric/Neurological: Anxiety Endocrine: Denies Excessive Sweating Past Wywhzbf-Jhqwji-Nxgzsr Hx Past Med/Social Hx: Reviewed Nursing Past Med/Soc Hx Patient Social History Alcohol Use: Denies Use Recreational Drug Use: No Drug of Choice: HX RX DRUG OVERDOSES Type Used: Cigarettes Former Smoker, Quit: Mar 14, 2018 2nd Hand Smoke Exposure: Yes Recent Foreign Travel: No Contact w/Someone Who Travel: No Recent Hopitalizations: Yes (OVERDOSE 04/12/18, heart cath) Physical Abuse: No Sexual Abuse: No Mistreated: No Immunizations Up To Date Tetanus Booster (TDap): Unknown PED Vaccines UTD: No Date of Pneumonia Vaccine: September 09, 2016 Date of Influenza Vaccine: Mar 26, 2018 Seasonal Allergies Seasonal Allergies: No Past Medical History Surgeries: Yes Breast, Cardiac, Section, Coronary Stent, Orthopedic, Tubal Ligation Respiratory: Yes (Respiratory failure and intubation March 2018 secondary to overdose) Currently Using CPAP: No Currently Using BIPAP: No Cardiac: Yes (Hx of stent to LAD.) Coronary Artery Disease, Heart Attack, High Cholesterol, Hypertension 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) Neuropathy Reproductive Disorders: No Female Reproductive Disorders: Ovarian Cyst [facility] DIRECTOR History: Tubal Ligation Sexually Transmitted Disease: No HIV/AIDS: No Genitourinary: No Gastrointestinal: Yes ("watermelon stomach disease") Musculoskeletal: Yes (carpal tunnel bilat hands; S/P BACK SURGERY/DISCECTOMY) Chronic Back Pain Endocrine: Yes Diabetes, Insulin dep HEENT: No Loss of Vision: Denies Hearing Impairment: Denies Cancer: No Psychosocial: Yes (OVERDOSE ON RX MEDS REQUIRING INTUBATION 04/12/18) Suicide Attempts Integumentary: No Blood Disorders: No Adverse Reaction/Blood Tranf: No Family Medical History Cardiovascular disease 19 FATHER, Onset:Unknown 19 MOTHER, Onset:Unknown Diabetes mellitus 19 FATHER 19 MOTHER Heart Disease, Diabetes, Other Conditions/Hx Physical Exam Vital Signs Vital Signs - First Documented 07/30/18 07/30/18 18:19 19:55 Temp 98.9 Pulse 111 Resp 18 B/P (MAP) 149/102 (118) Pulse Ox 98 O2 Delivery Room Air Capillary Refill : General Appearance: WD/WN, mild distress (appears to not feel well) HEENT: pharynx normal Neck: non-tender, full range of motion, supple Cardiovascular: normal peripheral pulses, regular rate, rhythm Respiratory: chest non-tender, lungs clear, normal breath sounds Extremities: normal range of motion, non-tender, normal inspection Neurologic/Psychiatric: incident response specialist II-XII nml as tested, alert, oriented x 3 Skin: warm/dry, other (4 mm slightly raised papule in center of back that is erythematous and tender to palpation that is where pt reports had tick bite and feels that the head of tick is still embedded.) Procedures/Interventions I&D : Site: middle of her back Blade Size: 15 Progress After obtaining informed consent from the patient, the area was cleaned with an alcohol pad. Then using Plain 1 % lidocaine 1 mL was injected to obtain anesthesia. Then the 15 blade was used to remove the papule and core of the area that was felt to possibly still have the head of the tick in it. This area then had pressure held with an alcohol pad to obtain hemostasis. Then a sterile bandaid was applied. The patient tolerated the procedure without any immediate complication. She did report having pain into her right arm when applying pressure to the area on her back. Date of ETT Placement: Apr 12, 2018 Time of ETT Placement: 405 Progress/Results/Core Measures Results/Orders My Orders Orders - MURIEL CUEVAS MD Promethazine Injection (Phenergan Injec (07/30/18 18:45) Morphine Injection (Morphine Injection (07/30/18 18:43) Lidocaine 1% Inj 20 Ml (Xylocaine 1% Inj (07/30/18 18:45) Medications Given in ED Current Medications Medications Dose Ordered Sig/Tomasz Route Start Time Stop Time Status Last Admin Dose Admin Lidocaine HCl 20 ml ONCE ONCE INJ 07/30/18 18:45 07/30/18 18:46 DC 07/30/18 18:53 20 ML Promethazine HCl 25 mg ONCE ONCE IM 07/30/18 18:45 07/30/18 18:46 DC 07/30/18 18:53 25 MG Vital Signs/I&O 07/30/18 07/30/18 18:19 19:55 Temp 98.9 Pulse 111 101 Resp 18 16 B/P (MAP) 149/102 (118) 133/94 (107) Pulse Ox 98 96 O2 Delivery Room Air Progress Progress Note : Progress Note Will give Phenergan 25 mg IM for nausea, Morphine 2 mg IM for pain and will try to remove the small red papule on her back that she feels might have the tick head in it. Start her on Doxycycline for tick bite. Phenergan for nausea. Counseled to check with Dr. Thomas and consider tick bite panel blood work n ext week as it would be 3 weeks since her bite and she should have antibodies by then to have the most accurate testing. Departure Impression Primary Impression: Right arm pain Additional Impressions: Nausea alone Tick bite of back Qualified Codes: S30.860A - Insect bite (nonvenomous) of lower back and pelvis , initial encounter; W57.XXXA - Bitten or stung by nonvenomous insect and other nonvenomous arthropods, initial encounter Disposition: HOME, SELF-CARE Condition: Stable Departure-Patient Inst. Decision time for Depature: 19:33 Referrals: BRI THOMAS MD (PCP/Family) Primary Care Physician Patient Instructions: Insect Bites and Stings (DC), Muscle and Bone Pain (DC), Nausea and Vomiting, Adult (DC) Add. Discharge Instructions: Take the Doxycycline antibiotic to treat for tick bite and this may help your nausea and arm pain if they are related to the tick bite. Keep your appointment with Dr. Thomas next week and see if she wants to do blood work to test for Tick Borne Illness to look for antibodies Use the Phenergan (Promethazine) for nausea. All discharge instructions reviewed with patient and/or family. Voiced understanding. Scripts Promethazine HCl (Promethazine Tablet) 25 Mg Tablet 25 MG PO Q6H PRN for NAUSEA/VOMITING for 7 Days, #30 TAB 0 Refills Prov: MURIEL CUEVAS MD 07/30/18 Hydrocodone Bit/Acetaminophen (Hydrocodone/Acetaminophen 5/325mg Tablet) 1 Tab Tab 1 EACH PO Q6H PRN for PAIN-SEVERE MDD 10 for 3 Days, #12 TAB 0 Refills Prov: MURIEL CUEVAS MD 07/30/18 Doxycycline Hyclate (Doxycycline Hyclate) 100 Mg Tablet 100 MG PO BID for tick bite for 14 Days, #28 TAB 0 Refills Prov: MURIEL CUEVAS MD 07/30/18 MURIEL CUEVAS MD Jul 30, 2018 18:41
[2018-07-30] MEDS ORDERED: morphine INJ 10 MG/ML 1ML (SYR OR VIAL) IM STA (18:43)
[2018-07-30] MEDS ORDERED: LIDOCAINE 1% INJ 20 ML 20 ML VIAL INJ ONE (18:45)
[2018-07-30] MEDS ORDERED: PROMETHAZINE INJ 25 MG/ML (PHENERGAN) AMP IM ONE (18:45)
--- OUTSIDE RECORDS SUMMARY | 2018-07-30 19:27 | XMS REPORT | Clinical Summary ---
Author Author [facility] Organization [facility] Address Unknown Phone Unavailable Care Team Providers Care Engineering Recruiter Name Role Phone Alfred Diaz MD PCP Unavailable Source Comments Some departments are not documenting in the electronic medical record. If you do not see the information that you expected, contact Release of Information in the Health Information Management department at [phone] for further assistance in locating additional records.[facility] Allergies Not on File Medications Not [...] Tdap) CERVICAL CANCER SCREENING 2011 INFLUENZA VACCINE 11/14/2018 Results Not on filefrom Last 3 Months Insurance Type Payer Benefit Subscriber ID Effective Phone Address Plan / Dates Group Medicaid [facility] MEDICAID [facility] xxxxxxxxxxx 2013- COMMUNITY Present PLAN [place] Advance Directives Patient has advance care planning documents on file. For more information, please contact: [address] [address]
--- OUTSIDE RECORDS SUMMARY | 2018-07-30 19:28 | XMS REPORT ---
Author Author BRI THOMAS [facility] Address [address] [place] [address] Care Team Providers Care Camp Attendant Name Role Phone BRI THOMAS Unavailable PROBLEMS Type Condition ICD9-CM Code [id number] Code Onset Dates Condition Status SNOMED Code Problem Chest pain, unspecified type R07.9 Active 24471631 Problem Type 2 diabetes mellitus with diabetic polyneuropathy E11.42 Active 93803125 Problem Cigarette smoker F17.210 Active 94002413 Problem Essential hypertension I10 Active 35254119 Problem Coronary artery disease involving [place] heart with angina pectoris, unspecified vessel or lesion type I25.119 Active 80261716 Problem Atherosclerotic heart disease of [place] coronary artery without angina pectoris I25.10 Active 390979140 Problem Moderate episode of recurrent major depressive disorder F33.1 Active 033561117 Problem Elevated BUN R79.9 Active 312406324 Problem Gastroesophageal reflux disease without esophagitis K21.9 Active 040514775 Problem Restless leg syndrome G25.81 Active 99472813 Problem Atherosclerotic heart disease of [place] coronary artery with unstable angina pectoris I25.110 Active 51779808183883955 Problem Carpal tunnel syndrome on both sides G56.03 Active 68228132255417303 Problem Type 2 diabetes mellitus with other circulatory complications E11.59 Active 35781296 Problem Coronary artery disease involving [place] coronary artery of [place] heart with angina pectoris I25.119 Active 5933541366670 Problem 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 Active 568753338 Problem Facial droop R29.810 Active 47123209 Problem PTSD (post-traumatic stress disorder) F43.10 Active 06933995 Problem PVC (premature ventricular contraction) I49.3 Active 21222115 Problem Hyperlipidemia LDL goal <70 E78.5 Active 68086454 Problem Dysphagia, unspecified type R13.10 Active 27787786 Problem Anxiety F41.9 Active 64149005 Problem Peripheral polyneuropathy G62.9 Active 22370722 Problem Insomnia, unspecified type G47.00 Active 684340940 ALLERGIES No Information ENCOUNTERS Encounter Location Date Diagnosis [place] [address] [address] Jul, Anxiety F41.9 [place] [address] [address] Jun, Type 2 diabetes mellitus with diabetic polyneuropathy E11.42 ; shelter current use of insulin Z79.4 ; Essential hypertension I10 ; Chest pain, unspecified type R07.9 ; Dysphagia, unspecified type R13.10 ; Facial droop R29.810 and Moderate episode of recurrent major depressive disorder F33.1 [place] [address] [address] Jun, PTSD (post-traumatic stress disorder) F43.10 and Moderate episode of recurrent major depressive disorder F33.1 [place] [address] [address] Jun, [place] [address] [address] Jun, [place] [address] [address] Jun, Type 2 diabetes mellitus with diabetic polyneuropathy E11.42 [place] [address] [address] Jun, Facial droop R29.810 ; Dysphagia, unspecified type R13.10 and Gastroesophageal reflux disease without esophagitis K21.9 [place] [address] [address] Jun, Type 2 diabetes mellitus with diabetic polyneuropathy E11.42 [place] [address] [address] Jun, [place] [address] [address] May, [place] [address] [place] [id number] [place] [address] May, Type 2 diabetes mellitus with diabetic polyneuropathy E11.42 ; Type 2 diabetes mellitus with other circulatory complications E11.59 ; Coronary artery disease involving [place] heart with angina pectoris, unspecified vessel or lesion type I25.119 ; Atherosclerotic heart disease of [place] coronary artery with unstable angina pectoris I25.110 ; Insomnia, unspecified type G47.00 ; GAVE (gastric antral vascular ectasia) K31.819 ; 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 ; Peripheral polyneuropathy G62.9 and Anxiety F41.9 [place] [address] [address] May, [place] [address] [address] May, [place] [address] [address] May, [place] [address] [address] May, Type 2 diabetes mellitus with diabetic polyneuropathy E11.42 [place] [address] [address] Apr, Type 2 diabetes mellitus with diabetic polyneuropathy E11.42 [place] [address] [address] Apr, Type 2 diabetes mellitus with diabetic polyneuropathy E11.42 ; 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 ; Essential hypertension I10 and Dysarthria R47.1 [place] [address] [address] Apr, [place] [address] [address] Apr, PTSD (post-traumatic stress disorder) F43.10 and Moderate episode of recurrent major depressive disorder F33.1 [place] [address] [place] [address] Apr, [facility] [address] [place] [id number] [place] [address] Apr, [facility] [address] [place] [id number] [place] [address] Apr, [facility] [address] [place] [id number] [place] [address] 0[address]- [address] Apr, Strep throat J02.0 ; Type 2 diabetes mellitus with diabetic polyneuropathy E11.42 ; 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 ; Esophageal yeast infection B37.81 and Dysphagia, unspecified type R13.10 [place] [address] [address] Apr, [place] [address] [place] [id number] [place] [address] Apr, Hospital discharge follow-up Z09 ; Multiple drug overdose, accidental or unintentional, initial encounter T50.901A ; Anxiety F41.9 ; Peripheral polyneuropathy G62.9 and PTSD (post-traumatic stress disorder) F43.10 [facility] [address] [place] [id number] [place] [address] Apr, [facility] [address] [place] [id number] [place] [address] 98[address]- [address] Mar, [facility] [address] [place] [id number] [place] [address] Mar, Chest pain R07.9 and Anxiety F41.9 [facility] [address] [place] [id number] [place] [address] 55974- [address] Mar, [facility] [address] [place] [id number] [place] [address] 40037- 5[address] Mar, [facility] [address] [place] [id number] [place] [address] Mar, [facility] [address] [place] [id number] [place] [address] 8[address]11- [address] Mar, PTSD (post-traumatic stress disorder) F43.10 [facility] [address] [place] [id number] [place] [address] 15287- 75[address] Mar, Hyperlipidemia LDL goal <70 E78.5 and Coronary artery disease involving [place] heart with angina pectoris, unspecified vessel or lesion type I25.119 [facility] [address] [place] [id number] [place] [address]- [address] Mar, [facility] [address] [place] [id number] [place] [address] 7[address]- [address] Feb, Coronary artery disease involving [place] heart with angina pectoris, unspecified vessel or lesion type I25.119 ; Type 2 diabetes mellitus with diabetic polyneuropathy E11.42 and Hospital discharge follow-up Z09 [facility] [address] [place] [id number] [place] [address] 7[address]- [address] Feb, [facility] [address] [place] [id number] [place] [address] 12082- 1631 Feb, [facility] [address] [place] [id number] [place] [address] 80378- 8656 Feb, Type 2 diabetes mellitus with diabetic polyneuropathy E11.42 [facility] [address] [place] [id number] [place] [address] 18[address]- 60[address] Feb, [facility] [address] [place] [id number] [place] [address] 48854- 0505 Feb, [facility] [address] [place] [id number] [place] [address] 50215- [address] Jan, [facility] [address] [place] [id number] [place] [address] 98[address]- 69[address] Jan, Carpal tunnel syndrome on both sides G56.03 [facility] [id number] [place] [address] 24776- 3484 Jan, PTSD (post-traumatic stress disorder) F43.10 and Moderate episode of recurrent major depressive disorder F33.1 [facility] [address] [address] Jan, [facility] [address] [place] [id number] [place] [address] 595472- 3686 Jan, PTSD (post-traumatic stress disorder) F43.10 and Moderate episode of recurrent major depressive disorder F33.1 [facility] [address] [place] [id number] [place] [address] 25771- 65[address] Jan, Type 2 diabetes mellitus with diabetic polyneuropathy E11.42 [facility] [address] [place] [address] 6[address]11- 38[address] Jan, PTSD (post-traumatic stress disorder) F43.10 and Moderate episode of recurrent major depressive disorder F33.1 [place] [address] [place] [address] 21442- 78[address] Jan, PTSD (post-traumatic stress disorder) F43.10 and Moderate episode of recurrent major depressive disorder F33.1 [facility] [id number] [place] [address] 73941- 34[address] Jan, [facility] [address] [place] [id number] [place] [address] -[address]605 Jan, Pain of left hand M79.642 and Pain in right hand M79.641 [facility] [id number] [place] [address] 58803- 3387 Jan, [facility] [address] [place] [id number] [place] [address] 94898- 3974 Dec, Bilateral hand numbness R20.0 [facility] [address] [place] [id number] [place] [address] 58148- 2933 Dec, PTSD (post-traumatic stress disorder) F43.10 and Moderate episode of recurrent major depressive disorder F33.1 [facility] [id number] [place] [address] 16436- 3199 Dec, Type 2 diabetes mellitus with diabetic polyneuropathy E11.42 [place] [address] [place] [id number] [place] [address] 7[address]30- 2148 Dec, [place] [address] [address]- [address] Dec, Type 2 diabetes mellitus with diabetic polyneuropathy E11.42 and Atherosclerotic heart disease of [place] coronary artery with unstable angina pectoris I25.110 [place] [address] [address]- [address] Dec, Bilateral hand numbness R20.0 [place] [address] [place] [id number] [place] [address] 0[address]99- 1322 Dec, Moderate episode of recurrent major depressive disorder F33.1 ; Type 2 diabetes mellitus with diabetic polyneuropathy E11.42 ; shelter current use of insulin Z79.4 ; Hyperlipidemia LDL goal <70 E78.5 ; Chest pain, unspecified type R07.9 ; Atherosclerotic heart disease of [place] coronary artery without angina pectoris I25.10 ; Cigarette smoker F17.210 ; Gastroesophageal reflux disease without esophagitis K21.9 and Restless leg syndrome G25.81 [place] [address] [place] [id number] [place] [address] 22671- 9679 Dec, PTSD (post-traumatic stress disorder) F43.10 and Moderate episode of recurrent major depressive disorder F33.1 [place] [address] [place] [id number] [place] [address] 61294- 0595 Dec, Moderate episode of recurrent major depressive disorder F33.1 [place] [address] [place] [id number] [place] [address] 80483- 7694 Dec, [place] [address] [place] [id number] [place] [address] 09491- 4558 Dec, [place] [address] [place] [id number] [place] [address] 80696- 3943 Dec, Uncontrolled type 2 diabetes mellitus with hyperglycemia E11.65 and Flatulence/gas pain/belching R14.0 [place] [address] [place] [id number] [place] [address] 15646- 5844 Nov, [place] [address] [place] [id number] [place] [address] 92561- 7780 Nov, PTSD (post-traumatic stress disorder) F43.10 and Moderate episode of recurrent major depressive disorder F33.1 [place] [address] [place] [id number] [place] [address] 30912- 3096 Nov, Chest pain, unspecified type R07.9 ; Coronary artery disease involving [place] coronary artery of [place] heart with angina pectoris I25.119 ; Restless leg syndrome G25.81 ; Hospital discharge follow-up Z09 and Type 2 diabetes mellitus with diabetic polyneuropathy E11.42 [place] [address] [place] [id number] [place] [address] 05415- 7528 Nov, Hyperlipidemia LDL goal <70 E78.5 [place] [address] [place] [id number] [place] [address] 55768- 6636 14 Nov, 2017 Hospital discharge follow-up Z09 ; Chest pain, unspecified type R07.9 ; Coronary artery disease involving [place] coronary artery of [place] heart with angina pectoris I25.119 and Gastroesophageal reflux disease without esophagitis K21.9 [place] [address] [place] [id number] [place] [address] 62285- 6271 Nov, PTSD (post-traumatic stress disorder) F43.10 and Moderate episode of recurrent major depressive disorder F33.1 [place] [address] [place] [id number] [place] [address] 15019- 2493 Oct, Type 2 diabetes mellitus with diabetic polyneuropathy E11.42 [place] [address] [place] [address] 97240- 2307 Oct, Diarrhea, unspecified type R19.7 ; Gastroesophageal reflux disease without esophagitis K21.9 and Vaginal discharge N89.8 [place] [address] [place] [address] 36807- 6414 Oct, Type 2 diabetes mellitus with diabetic polyneuropathy E11.42 [place] [address] [place] [id number] [place] [address] 30359- 6476 Oct, Hyperlipidemia LDL goal <70 E78.5 [facility] [address] [address]- [address]33 Oct, Atherosclerotic heart disease of [place] coronary artery without angina pectoris I25.10 ; Coronary artery disease involving [place] heart with angina pectoris, unspecified vessel or lesion type I25.119 ; Type 2 diabetes mellitus with diabetic polyneuropathy E11.42 ; Hyperlipidemia LDL goal <70 E78.5 ; Cigarette smoker F17.210 and Post-traumatic stress reaction F43.10 [facility] [address] [address]- [address] Oct, [facility] [address] [address]- [address] Oct, Difficulty breathing R06.89 ; Hospital discharge follow-up Z09 and Bilateral lower extremity edema R60.0 [facility] [address] [address]- [address] Oct, [facility] [address] [place] [id number] [place] [address] 56379 -8089 Oct, Dependent edema R60.9 [facility] [address] [place] [id number] [place] [address] 45391- 2424 Oct, [facility] [address] [place] [id number] [place] [address] 55837- 7491 Oct, [facility] [address] [place] [id number] [place] [address] 79992- 3038 Oct, Type 2 diabetes mellitus with diabetic polyneuropathy E11.42 [facility] [address] [place] [id number] [place] [address] 46186- 2885 Oct, [facility] [address] [place] [id number] [place] [address] 70951- 4387 Sep, [facility] [address] [place] [id number] [place] [address] 30991- 0186 August, [place] [address] [address]- [address] Jul, [facility] [address] [place] [id number] [place] [address] 50974- 1101 Jul, Establishing care with new doctor, encounter for Z76.89 ; Type 2 diabetes mellitus with diabetic polyneuropathy E11.42 ; shelter current use of insulin Z79.4 ; Hyperlipidemia LDL goal <70 E78.5 ; Essential hypertension I10 and Chest pain, unspecified type R07.9 [facility] [address] [address]- 69[address] Jul, [facility] [address] [place] [id number] [place] [address] 24303- 1119 Jul, [facility] [address] [place] [id number] [place] [address] 88028- 7065 Jun, [facility] [address] [place] [id number] [place] [address] 46408- 0224 Jun, [facility] [address] [address]- 3260 Jun, [facility] [address] [address]- 4310 Jun, Acute hyperglycemia R73.9 ; Type 2 diabetes mellitus with diabetic polyneuropathy E11.42 ; 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 [address] [address] August, [facility] [address] [place] [id number] [address] August, [facility] [address] [address] August, Acute vaginitis N76.0 ; Trichomonas vaginitis A59.01 and Vaginal discharge N89.8 IMMUNIZATIONS No Known Immunizations SOCIAL HISTORY Never Assessed REASON FOR VISIT needing insulin PLAN OF CARE VITAL SIGNS MEDICATIONS Medication Instructions Dosage Frequency Start Date End Date Duration Status Levemir FlexTouch 100 UNIT/ML Subcutaneous 2 times a day 30 Units 12h Active RESULTS No Results PROCEDURES No Known procedures INSTRUCTIONS MEDICATIONS ADMINISTERED No Known Medications MEDICAL (GENERAL) HISTORY Type Description Date Medical History Type 2 diabetes mellitus with diabetic polyneuropathy Medical History shelter current use of insulin Medical History HTN, goal below 130/80 Medical History Hyperlipidemia LDL goal < 70 Medical History Left Lower Nodule 9mm stable Medical History stents X2 Medical History drug overdose Surgical History C-Sectionx3 Surgical History Left breast [...]
[2018-07-30] MEDS ORDERED: ACHD5005 PO (19:46)
[2018-07-30] MEDS ORDERED: DOXY100T2 PO (19:46)
[2018-07-30] MEDS ORDERED: PROM25TA14 PO (19:46)
[2018-07-30 19:55] VITALS: BP 133/94
== END 2018-07-30 19:55 | disposition home or self-care (01) ==
LOC: EDUNIT# 18:15 → ER FS 18:17
DX: S30.860A Insect bite (nonvenomous) of lower back and pelvis, initial encounter (principal); M79.601 Pain in right arm; R11.0 Nausea; I25.10 Atherosclerotic heart disease of native coronary artery without angina pectoris; I25.2 Old myocardial infarction; E78.00 Pure hypercholesterolemia, unspecified; I10 Essential (primary) hypertension; E11.40 Type 2 diabetes mellitus with diabetic neuropathy, unspecified; Z82.49 Family history of ischemic heart disease and other diseases of the circulatory system; Z91.5 Personal history of self-harm; Z87.448 Personal history of other diseases of urinary system; Z88.4 Allergy status to anesthetic agent; Z79.82 Long term (current) use of aspirin; Z79.4 Long term (current) use of insulin; Z98.890 Other specified postprocedural states; Z95.5 Presence of coronary angioplasty implant and graft; Z98.51 Tubal ligation status; Z87.891 Personal history of nicotine dependence; W57.XXXA Bitten or stung by nonvenomous insect and other nonvenomous arthropods, initial encounter
CPT/HCPCS: 99284

== ENCOUNTER 2018-08-24 19:05 | Emergency (ER) | payer OTHER ==
[~2018-08-24] VITALS: Ht 157.5 cm; Wt 71.2 kg
[~2018-08-24 19:05] MED LIST changes: +PROM25TA14 PO
--- NOTE | 2018-08-24 21:18 | ED General ---
General Chief Complaint: Neurological Problems Stated Complaint: NUMBNESS IN FEET AND LEGS Nursing Triage Note: Patient states that she is having numbness and tingling in her legs. Patient states she has neuropathy as a result of her diabetes. She has been to the doctor for this issue during this past week. Patient normally takes 300mg of Neurontin and the doctor had increased the dose to 800mg. Patient states that they havent written a script like they said they were going to and she has only been taking 300mg. Patient states she is here because the pain is a 10/10. Nursing Sepsis Screen: No Definite Risk Source of Information: Patient History of Present Illness Date Seen by Provider: August 24, 2018 Time Seen by Provider: 21:18 Initial Comments 38-year-old female presenting with complaints of a neuropathic pain in her legs and feet. She states that she is waiting to get her new prescription of gabapentin 800 mg instead of the 300 mg she is taking now. She already is taking approximately 2400 mg a day of gabapentin of the 300 mg that she has now. She is to go up to 3200 mg of gabapentin of the 800 mg. She states that she is having severe pain and it is keeping her from sleeping. She knows that she has an elevated A1c and states that she is having difficulty trying to control her sugars. She reports that she has run out of Klonopin that she uses to help her sleep. She has not slept for the last 2 days because of the severe pain. She presents ER hoping that we can do something to help her rest and help with pain. She denies any fever or chills. She denies any other new symptoms. She has contacted the pharmacy and reportedly they are getting the new medication from the [facility]. When it arrives they were supposed to call her so she can pick it up. Allergies and Home Medications Allergies Coded Allergies: coconut (Verified Allergy, Severe, anaphylactic reaction, 07/30/18) ketorolac (Unverified Allergy, Unknown, 07/30/18) Home Medications Albuterol Sulfate 1 Puff Puff, 2 PUFF INH Q4H PRN for SHORTNESS OF BREATH, ( Reported) 1 PUFF = 90 MCG Aspirin 81 Mg Tab.chew, 81 MG PO DAILY, (Reported) Atorvastatin Calcium 80 Mg Tablet, 80 MG PO DAILY, (Reported) Clonazepam 0.5 Mg Tablet, 0.5 MG PO BID PRN for ANXIETY, (Reported) Doxycycline Hyclate 100 Mg Tablet, 100 MG PO BID Prescribed by: MURIEL CUEVAS on 07/30/181945 Fenofibrate Nanocrystallized 160 Mg Tablet, 160 MG PO DAILY, (Reported) Gabapentin 300 Mg Capsule, 300 MG PO TID, (Reported) Hydrocodone Bit/Acetaminophen 1 Tab Tab, 1 EACH PO Q6H PRN for PAIN-SEVERE Prescribed by: MURIEL CUEVAS on 07/30/181945 Insulin Detemir 100 Unit/1 Ml Insuln.pen, 25 UNIT SQ BID, (Reported) Insulin Lispro 100 Unit/1 Ml Insuln.pen, 20 UNIT SQ TIDAC, (Reported) Liraglutide 0.6 Mg/0.1 Ml Pen.injctr, 1.8 MG SQ DAILY, (Reported) Lorazepam 1 Mg Tablet, 1 MG PO BID PRN for ANXIETY Prescribed by: MURIEL CUEVAS on 08/24/182152 Metformin HCl 1,000 Mg Tablet, 1,000 MG PO BID, (Reported) LAST FILLED #60 18 Metoprolol Succinate 50 Mg Tab.er.24h, 50 MG PO BID, (Reported) LAST FILLED #60 03-30-18 Ondansetron 8 Mg Tab.rapdis, 8 MG PO Q6H PRN for NAUSEA/VOMITING-1ST LINE, ( Reported) Pantoprazole Sodium 40 Mg Tablet.dr, 40 MG PO DAILY@0700 Prescribed by: LIZET URBAN on 06/01/18 0950 Promethazine HCl 25 Mg Tablet, 25 MG PO Q6H PRN for NAUSEA/VOMITING Prescribed by: MURIEL CUEVAS on 07/30/181945 Ticagrelor 90 Mg Tablet, 90 MG PO BID, (Reported) Patient Home Medication List Home Medication List Reviewed: Yes Review of Systems Review of Systems Constitutional: No chills, No fever EENTM: no symptoms reported Respiratory: no symptoms reported Cardiovascular: no symptoms reported Gastrointestinal: no symptoms reported Genitourinary: no symptoms reported Musculoskeletal: other (pain in her feet, hands and legs) Skin: other (pins and needles and burning sensation in her feet hands and legs) Psychiatric/Neurological: Anxiety, Numbness (with burning and pain in her feet hands and legs from the neuropathy) Past Gygskuf-Qngkwe-Tgkclt Hx Past Med/Social Hx: Reviewed Nursing Past Med/Soc Hx Patient Social History Alcohol Use: Denies Use Recreational Drug Use: No Drug of Choice: HX RX DRUG OVERDOSES Type Used: Cigarettes Former Smoker, Quit: Mar 14, 2018 2nd Hand Smoke Exposure: Yes Recent Foreign Travel: No Contact w/Someone Who Travel: No Recent Infectious Disease Expo: No Recent Hopitalizations: Yes (OVERDOSE 04/12/18, heart cath) Physical Abuse: No Sexual Abuse: No Mistreated: No Fear: No Immunizations Up To Date Tetanus Booster (TDap): Unknown PED Vaccines UTD: No Date of Pneumonia Vaccine: September 09, 2016 Date of Influenza Vaccine: Mar 26, 2018 Seasonal Allergies Seasonal Allergies: No Past Medical History Surgeries: Yes Breast, Cardiac, Section, Coronary Stent, Orthopedic, Tubal Ligation Respiratory: Yes (Respiratory failure and intubation March 2018 secondary to overdose) Currently Using CPAP: No Currently Using BIPAP: No Cardiac: Yes (Hx of stent to LAD.) Coronary Artery Disease, Heart Attack, High Cholesterol, Hypertension 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) Neuropathy Reproductive Disorders: No 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 Sexually Transmitted Disease: No HIV/AIDS: No Genitourinary: No Gastrointestinal: Yes ("watermelon stomach disease") Musculoskeletal: Yes (carpal tunnel bilat hands; S/P BACK SURGERY/DISCECTOMY) Chronic Back Pain Endocrine: Yes Diabetes, Insulin dep HEENT: No Loss of Vision: Denies Hearing Impairment: Denies Cancer: No Psychosocial: Yes (OVERDOSE ON RX MEDS REQUIRING INTUBATION 04/12/18) Suicide Attempts Integumentary: No Blood Disorders: No Adverse Reaction/Blood Tranf: No Family Medical History Cardiovascular disease 19 FATHER, Onset:Unknown 19 MOTHER, Onset:Unknown Diabetes mellitus 19 FATHER 19 MOTHER Heart Disease, Diabetes, Other Conditions/Hx Physical Exam Vital Signs Vital Signs - First Documented 08/24/18 19:51 Temp 97.7 Pulse 108 Resp 18 B/P (MAP) 139/88 (105) Pulse Ox 97 O2 Delivery Room Air Capillary Refill : Less Than 3 Seconds Height, Weight, BMI Height: 5'2.00" Weight: 157lbs. 0oz. [id number]; 27.5 BMI Method:Stated General Appearance: WD/WN, Anxious, Mild Distress HEENT: PERRL/EOMI Neck: Full Range of Motion, Supple Respiratory: Lungs Clear, Normal Breath Sounds Cardiovascular: Regular Rate, Rhythm Neurologic/Psychiatric: Alert, Oriented x3 Skin: Normal Color, Warm/Dry Procedures/Interventions Date of ETT Placement: Apr 12, 2018 Time of ETT Placement: 405 Progress/Results/Core Measures Suspected Sepsis Recent Fever Within 48 Hours: No Infection Criteria Present: None New/Unexplained Altered Menta: No Sepsis Screen: No Definite Risk SIRS Temperature:97.7 Pulse: 108 Respiratory Rate: 18 Blood Pressure 139 /88 Mean: 105 Results/Orders My Orders Orders - MURIEL CUEVAS MD Lorazepam Injection (Ativan Injection) (08/24/18 21:45) Vital Signs/I&O 08/24/18 08/24/18 19:51 21:58 Temp 97.7 97.2 Pulse 108 103 Resp 18 18 B/P (MAP) 139/88 (105) 124/88 (100) Pulse Ox 97 98 O2 Delivery Room Air Room Air Capillary Refill : Less Than 3 Seconds Blood Pressure Mean: 105 Progress Note : Progress Note Advised that I had nothing that would take her neuropathy away but I did try giving a dose of Ativan to help her rest. 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 Departure Impression Primary Impression: Diabetic neuropathy, painful Disposition: 01 HOME, SELF-CARE Condition: Stable Departure-Patient Inst. Decision time for Depature: 21:47 Referrals: BRI THOMAS MD (PCP/Family) Primary Care Physician Patient Instructions: Diabetic Neuropathy (DC), Foot Care for Diabetics Add. Discharge Instructions: Continue to work on lowering your sugars with your doctor. Check with them about an insulin pump or other ways to better manage your sugars and lower your A1C levels. Check with Pharmacy and start the increased dose of Gabapentin (Neurontin) as soon as possible to help with your neuropathic pain. All discharge instructions reviewed with patient and/or family. Voiced understanding. Scripts Lorazepam (Lorazepam) 1 Mg Tablet 1 MG PO BID PRN for ANXIETY for 5 Days, #10 TAB 0 Refills Prov: MURIEL CUEVAS MD 08/24/18 MURIEL CUEVAS MD August 24, 2018 21:18
[2018-08-24] MEDS ORDERED: LORazepam INJ 2 MG/ML (ATIVAN) VIAL IM STA (21:45)
[2018-08-24] MEDS ORDERED: LORA1TAB PO (21:53)
[2018-08-24 21:58] VITALS: BP 124/88
== END 2018-08-24 21:58 | disposition home or self-care (01) ==
LOC: EDUNIT# 19:05 → ER FS 19:09
DX: E11.40 Type 2 diabetes mellitus with diabetic neuropathy, unspecified (principal); I25.10 Atherosclerotic heart disease of native coronary artery without angina pectoris; I25.2 Old myocardial infarction; E78.00 Pure hypercholesterolemia, unspecified; I10 Essential (primary) hypertension; G51.0 Bell's palsy; Z91.5 Personal history of self-harm; Z98.1 Arthrodesis status; Z87.448 Personal history of other diseases of urinary system; Z88.5 Allergy status to narcotic agent; Z82.49 Family history of ischemic heart disease and other diseases of the circulatory system; Z88.4 Allergy status to anesthetic agent; Z79.82 Long term (current) use of aspirin; Z79.4 Long term (current) use of insulin; Z87.891 Personal history of nicotine dependence; Z95.5 Presence of coronary angioplasty implant and graft; Z98.51 Tubal ligation status; Z98.890 Other specified postprocedural states
CPT/HCPCS: 96372; 99284

== ENCOUNTER 2018-08-31 05:32 | Emergency (ER) | payer OTHER ==
[~2018-08-31] VITALS: Ht 157.5 cm; Wt 71.2 kg
--- OUTSIDE RECORDS SUMMARY | 2018-08-31 05:39 | XMS REPORT | Clinical Summary ---
Author Author [facility] Organization [facility] Address Unknown Phone Unavailable Care Team Providers Care Physician Assistant Primary Care Name Role Phone Alfred Diaz MD PCP Unavailable Source Comments Some departments are not documenting in the electronic medical record. If you d o not see the information that you expected, contact Release of Information in [facility] Information Management department at [phone] for further assistan ce in locating additional records.[facility] Allergies Not on File Medications Not on [...] Tdap) CERVICAL CANCER SCREENING 2011 INFLUENZA VACCINE 01/14/2019 Results Not on filefrom Last 3 Months Insurance Type Payer Benefit Subscriber ID Effective Phone Address Plan / Dates Group Medicaid [facility] MEDICAID [facility] xxxxxxxxxxx 2013- COMMUNITY Present PLAN [place] Advance Directives Patient has advance care planning documents on file. For more information, courtney odell contact: [address] [address]
[2018-08-31] MEDS ORDERED: NS IV 1000 ML 1,000 ML IV STA (05:44)
[2018-08-31] MEDS ORDERED: morphine INJ 10 MG/ML 1ML (SYR OR VIAL) IV STA (05:44)
[2018-08-31] MEDS ORDERED: ONDANSETRON 4 MG/2 ML (SDV) Z0FRAN IVP STA (05:46)
--- NOTE | 2018-08-31 05:56 | ED Chest Pain ---
General Chief Complaint: Chest Pain Stated Complaint: CHEST PAIN History of Present Illness Date Seen by Provider: August 31, 2018 Time Seen by Provider: 05:38 38F hx CAD, [place] earlier this year had stents placed at [facility] in [place], on Brilinta, also DM, HTN, and active tobacco abuse, here for CP that woke her from sleep. Anterior, nonradiating, not worse with breathing. Does have SOB. Pt states this feel how she felt when she had an [place]. EMS gave ASA, morphine, pt also took 2 NTG and nothing has helped her pain. No paresthesias, no migration of pain, no unilateral leg swelling, no change in mild chronic cough, no fever, no hemoptysis. Has had minimal B/L LE swelling just in the feet intermittently over last few days. (KATIANA ESTEVES DO) Allergies and Home Medications Allergies Coded Allergies: coconut (Verified Allergy, Severe, anaphylactic reaction, 08/31/18) ketorolac (Unverified Allergy, Unknown, 08/31/18) Home Medications Albuterol Sulfate 1 Puff Puff, 2 PUFF INH Q4H PRN for SHORTNESS OF BREATH, (Reported) 1 PUFF = 90 MCG Aspirin 81 Mg Tab.chew, 81 MG PO DAILY, (Reported) Atorvastatin Calcium 80 Mg Tablet, 80 MG PO DAILY, (Reported) Clonazepam 0.5 Mg Tablet, 0.5 MG PO BID PRN for ANXIETY, (Reported) Doxycycline Hyclate 100 Mg Tablet, 100 MG PO BID Prescribed by: MURIEL CUEVAS on 07/30/181945 Fenofibrate Nanocrystallized 160 Mg Tablet, 160 MG PO DAILY, (Reported) Gabapentin 300 Mg Capsule, 300 MG PO TID, (Reported) Hydrocodone Bit/Acetaminophen 1 Tab Tab, 1 EACH PO Q6H PRN for PAIN-SEVERE Prescribed by: MURIEL CUEVAS on 07/30/181945 Insulin Detemir 100 Unit/1 Ml Insuln.pen, 25 UNIT SQ BID, (Reported) Insulin Lispro 100 Unit/1 Ml Insuln.pen, 20 UNIT SQ TIDAC, (Reported) Liraglutide 0.6 Mg/0.1 Ml Pen.injctr, 1.8 MG SQ DAILY, (Reported) Lorazepam 1 Mg Tablet, 1 MG PO BID PRN for ANXIETY Prescribed by: MURIEL CUEVAS on 08/24/182152 Metformin HCl 1,000 Mg Tablet, 1,000 MG PO BID, (Reported) LAST FILLED #60 03-30-18 Metoprolol Succinate 50 Mg Tab.er.24h, 50 MG PO BID, (Reported) LAST FILLED #60 03-30-18 Ondansetron 8 Mg Tab.rapdis, 8 MG PO Q6H PRN for NAUSEA/VOMITING-1ST LINE, (Reported) Pantoprazole Sodium 40 Mg Tablet.dr, 40 MG PO DAILY@0700 Prescribed by: LIZET URBAN on 06/01/18 0950 Promethazine HCl 25 Mg Tablet, 25 MG PO Q6H PRN for NAUSEA/VOMITING Prescribed by: MURIEL CUEVAS on 07/30/18 194 Ticagrelor 90 Mg Tablet, 90 MG PO BID, (Reported) Patient Home Medication List Home Medication List Reviewed: Yes (KATIANA ESTEVES DO) Review of Systems Review of Systems Constitutional: no symptoms reported EENTM: No Symptoms Reported Respiratory: See HPI, SOA at Rest Cardiovascular: See HPI, Chest Pain Gastrointestinal: No Symptoms Reported Genitourinary: No Symptoms Reported Musculoskeletal: no symptoms reported Skin: no symptoms reported Psychiatric/Neurological: No Symptoms Reported Endocrine: No Symptoms Reported Hematologic/Lymphatic: No Symptoms Reported (KATIANA ESTEVES DO) Past Ecdenls-Hxpber-Vhsnkk Hx Past Med/Social Hx: Reviewed Nursing Past Med/Soc Hx (KATIANA ESTEVES DO) Patient Social History Drug of Choice: HX RX DRUG OVERDOSES Type Used: Cigarettes Former Smoker, Quit: Mar 14, 2018 2nd Hand Smoke Exposure: Yes Recent Foreign Travel: No Contact w/Someone Who Travel: No Recent Hopitalizations: Yes (OVERDOSE 04/12/18, heart cath) (KATIANA ESTEVES DO) Immunizations Up To Date Tetanus Booster (TDap): Unknown PED Vaccines UTD: No Date of Pneumonia Vaccine: September 09, 2016 Date of Influenza Vaccine: Mar 26, 2018 (KATIANA ESTEVES DO) Seasonal Allergies Seasonal Allergies: No (KATIANA ESTEVES DO) Past Medical History Surgeries: Yes Breast, Cardiac, Section, Coronary Stent, Orthopedic, Tubal Ligation Respiratory: Yes (Respiratory failure and intubation March 2018 secondary to overdose) Currently Using CPAP: No Currently Using BIPAP: No Cardiac: Yes (Hx of stent to LAD.) Coronary Artery Disease, Heart Attack, High Cholesterol, Hypertension 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) Neuropathy Reproductive Disorders: No 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 Sexually Transmitted Disease: No HIV/AIDS: No Genitourinary: No Gastrointestinal: Yes ("watermelon stomach disease") Musculoskeletal: Yes (carpal tunnel bilat hands; S/P BACK SURGERY/DISCECTOMY) Chronic Back Pain Endocrine: Yes Diabetes, Insulin dep HEENT: No Loss of Vision: Denies Hearing Impairment: Denies Cancer: No Psychosocial: Yes (OVERDOSE ON RX MEDS REQUIRING INTUBATION 04/12/18) Suicide Attempts Integumentary: No Blood Disorders: No Adverse Reaction/Blood Tranf: No (KATIANA ESTEVES DO) Family Medical History Cardiovascular disease 19 FATHER, Onset:Unknown 19 MOTHER, Onset:Unknown Diabetes mellitus 19 FATHER 19 MOTHER Heart Disease, Diabetes, Other Conditions/Hx (KATIANA ESTEVES DO) Physical Exam Vital Signs Vital Signs - First Documented 08/31/18 05:39 Temp 98.4 Pulse 97 Resp 24 B/P (MAP) 150/107 (121) Pulse Ox 97 O2 Delivery Nasal Cannula O2 Flow Rate 3.00 FiO2 97 (MADELYN RAMÍREZ DO) Vital Signs Capillary Refill : (KATIANA ESTEVES DO) Height, Weight, BMI Height: 5'2.00" Weight: 157lbs. 0oz. 71.823357vf; 27.5 BMI Method:Stated General Appearance: No Apparent Distress (wearing nasal cannula O2, appears mildly uncomfortable) HEENT: Moist Mucous Membranes Neck: Supple; No JVD Respiratory: Lungs Clear, No Accessory Muscle Use; No Pleural Rub, No Rhonci, No Wheezing Cardiovascular: No Edema, Other (regular, tachycardic) Gastrointestinal: No Pulsatile Mass, Non Tender, Soft Extremity: Non Tender Neurologic/Psychiatric: Alert, Oriented x3, No Motor/Sensory Deficits Skin: Warm/Dry (KATIANA ESTEVES DO) Procedures/Interventions Date of ETT Placement: Apr 12, 2018 Time of ETT Placement: 0406 (KATIANA ESTEVES DO) Progress/Results/Core Measures Results/Orders Lab Results Laboratory Tests Test 08/31/18 05:39 08/31/18 07:45 08/31/18 09:00 Range/Units White Blood Count 9.4 4.3-11.0 10^3/uL Red Blood Count 4.76 4.35-5.85 10^6/uL Hemoglobin 12.6 11.5-16.0 G/DL Hematocrit 35 35-52 % Mean Corpuscular Volume 73 L 80-99 FL Mean Corpuscular Hemoglobin 26 25-34 PG Mean Corpuscular Hemoglobin Concent 36 32-36 G/DL Red Cell Distribution Width 15.4 H 10.0-14.5 % Platelet Count 428 H 130-400 10^3/uL Mean Platelet Volume 9.4 7.4-10.4 FL Prothrombin Time 11.6 L 12.2-14.7 SEC INR Comment 0.8 0.8-1.4 Activated Partial Thromboplast Time 28 24-35 SEC Sodium Level 132 L 135-145 MMOL/L Potassium Level 3.6 3.6-5.0 MMOL/L Chloride Level 96 L 98-107 MMOL/L Carbon Dioxide Level 17 L 21-32 MMOL/L Anion Gap 19 H 5-14 MMOL/L Blood Urea Nitrogen 14 7-18 MG/DL Creatinine 0.37 L 0.60-1.30 MG/DL Estimat Glomerular Filtration Rate > 60 BUN/Creatinine Ratio 38 Glucose Level 363 H 70-105 MG/DL Calcium Level 8.4 L 8.5-10.1 MG/DL Corrected Calcium 9.0 8.5-10.1 MG/DL Magnesium Level 1.7 L 1.8-2.4 MG/DL Total Bilirubin 0.2 0.1-1.0 MG/DL Aspartate Amino Transf (AST/SGOT) < 5 L 5-34 U/L Alanine Aminotransferase (ALT/SGPT) < 5 0-55 U/L Alkaline Phosphatase 135 40-136 U/L Troponin T < 6 < 6 <=10 NG/L Pro-B-Type Natriuretic Peptide 18.4 <75.0 PG/ML Total Protein 6.9 6.4-8.2 GM/DL Albumin 3.2 3.2-4.5 GM/DL Urine Color YELLOW Urine Clarity CLEAR Urine pH 6.0 5-9 Urine Specific [place] 1.015 L 1.016-1.022 Urine Protein 1+ H NEGATIVE Urine Glucose (UA) 3+ H NEGATIVE Urine Ketones 1+ H NEGATIVE Urine Nitrite NEGATIVE NEGATIVE Urine Bilirubin NEGATIVE NEGATIVE Urine Urobilinogen 0.2 NORMAL MG/DL Urine Leukocyte Esterase NEGATIVE NEGATIVE Urine RBC (Auto) NEGATIVE NEGATIVE Urine RBC NONE /HPF Urine WBC NONE /HPF Urine Squamous Epithelial Cells 0-2 /HPF Urine Crystals NONE /LPF Urine Bacteria NONE /HPF Urine Casts NONE /LPF Urine Mucus NEGATIVE /LPF Urine Culture Indicated NO Urine Opiates Screen POSITIVE H NEGATIVE Urine Oxycodone Screen NEGATIVE NEGATIVE Urine Methadone Screen NEGATIVE NEGATIVE Urine Propoxyphene Screen NEGATIVE NEGATIVE Urine Barbiturates Screen NEGATIVE NEGATIVE Ur Tricyclic Antidepressants Screen NEGATIVE NEGATIVE Urine Phencyclidine Screen NEGATIVE NEGATIVE Urine Amphetamines Screen NEGATIVE NEGATIVE Urine Methamphetamines Screen NEGATIVE NEGATIVE Urine Benzodiazepines Screen NEGATIVE NEGATIVE Urine Cocaine Screen NEGATIVE NEGATIVE Urine Cannabinoids Screen NEGATIVE NEGATIVE (MADELYN RAMÍREZ DO) My Orders Orders - MADELYN RAMÍREZ DO Drug Screen Stat (Urine) (08/31/18 06:11) Thyroid Stimulating Hormone (08/31/18 06:11) Fibrin Degradation Products (08/31/18 06:11) Magnesium Oxide Tablet (Mag Ox Tablet) (08/31/18 07:30) Ns Iv 1000 Ml (Sodium Chloride 0.9%) (08/31/18 07:30) Troponin T (08/31/18 07:30) Beta Hydroxybutyrate (08/31/18 05:39) Ua Culture If Indicated (08/31/18 09:41) (MADELYN RAMÍREZ DO) Medications Given in ED Current Medications Medications Dose Ordered Sig/Tomasz Route Start Time Stop Time Status Last Admin Dose Admin Magnesium Oxide 400 mg ONCE ONCE PO 08/31/18 07:30 08/31/18 07:54 DC 08/31/18 08:03 400 MG Sodium Chloride 1,000 ml ONCE ONCE IV 08/31/18 07:30 08/31/18 07:54 DC 08/31/18 07:40 1,000 ML (MADELYN RAMÍREZ DO) Vital Signs/I&O 08/31/18 08/31/18 08/31/18 05:39 05:39 06:11 Temp 98.4 Pulse 97 Resp 24 B/P (MAP) 150/107 (121) Pulse Ox 97 O2 Delivery Nasal Cannula Nasal Cannula Nasal Cannula O2 Flow Rate 3.00 3.00 3.00 FiO2 97 (MADELYN RAMÍREZ DO) Progress Progress Note : Progress Note 38F hx CAD and [place] earlier this year here w same pain she had at that time, 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 Will give higher dose of morphine and reassess. Also tachycardic, giving fluids, checking labs for anemia or complications from DM such as acidosis, will reassess. Anticipate admission. Care signed out to oncoming provider at 6 am. (KATIANA ESTEVES DO) Progress Note : Progress Note Patient much improved and pain free p/ the 8 mg dose of Morphine. 2 hour Troponin T remained negative. Hydrated and observed and has remained pain free the entire time. Will discharge home. She will dose her insulin upon arrival home. Encourage to drink plenty of fluids. (MADELYN RAMÍREZ DO) EKG : Comment 0538: Sinus or ectopic atrial tach, rate 139. LAD. Septal and inferior Q waves. TWI's III and aVF. Low voltages without electrical alternans. (KATIANA ESTEVES DO) Initial ECG Impression Date: August 31, 2018 Initial ECG Impression Time: 05:41 Initial ECG Rate: 139 Initial ECG Rhythm: S.Tach Initial ECG Impression: Nonspecific Changes (Inferior infarct, ? age; Anteroseptal infarct, old. ) (MADELYN RAMÍREZ DO) Diagnostic Imaging Diagonstic Imaging: Xray Plain Films/CT/US/NM/MRI: chest (nothing acute) (MADELYN RAMÍREZ DO) Departure Impression Primary Impression: Non-cardiac chest pain Additional Impressions: Dehydration Hyperglycemia due to type 2 diabetes mellitus Hyponatremia Hypomagnesemia Disposition: 01 HOME, SELF-CARE Condition: Improved Departure-Patient Inst. Referrals: BRI THOMAS MD (PCP/Family) Primary Care Physician Patient Instructions: Chest Pain That Is Not Caused by the Heart (DC), Hyponatremia (DC), Low Magnesium Level (DC), Dehydration, Adult (DC) Add. Discharge Instructions: All discharge instructions reviewed with patient and/or family. Voiced understanding. Dose your insulin upon arrival home. Need to drink plenty of fluids, especially water. Return if your symptoms recur. KATIANA ESTEVES DO August 31, 2018 05:56 MADELYN RAMÍREZ DO August 31, 2018 10:19
[2018-08-31 06:14] LABS: HEMOGLOBIN 12.6 G/DL (11.5-16.0); WHITE BLOOD COUNT 9.4 10^3/uL (4.3-11.0)
--- NOTE | 2018-08-31 06:14 | NUR ---
PT. REPORTED AT THIS TIME SHE NO LONGER HAS PAIN, HEART RATE IS NOW 123 AND HER BP IS 117/69. INFORMED DOCTOR DESIREE OF THE RESULTS.
[2018-08-31 06:15] LABS: MEAN PLATELET VOLUME 9.4 FL (7.4-10.4); RED CELL DISTRIBUTION WIDTH 15.4 % (10.0-14.5)
[2018-08-31 06:27] LABS: INR 0.8 (0.8-1.4); PROTHROMBIN TIME PATIENT 11.6 SEC (12.2-14.7)
--- NOTE | 2018-08-31 07:05 | Diagnostic Imaging Report ---
Indication: Chest pain. Comparison made to prior exam from 07/12/2018 Findings: The lungs demonstrate no focal pulmonary infiltrate or consolidation. There is no effusion. There is no pneumothorax. Heart size and mediastinal contours appear appropriate. Pulmonary vascularity appears normal without evidence of current failure. There is no acute or suspicious osseous abnormality. Impression: 1. No radiographic evidence of an acute cardio pulmonary process. Heart size unchanged and central pulmonary vascularity appears appropriate. Dictated by: Dictated on workstation # [id number]
[2018-08-31 07:18] LABS: CHLORIDE 96 MMOL/L (98-107); POTASSIUM 3.6 MMOL/L (3.6-5.0); SODIUM 132 MMOL/L (135-145)
[2018-08-31 07:19] LABS: CARBON DIOXIDE 17 MMOL/L (21-32)
[2018-08-31 07:20] LABS: ALANINE AMINOTRANSFERASE < 5 U/L (0-55); ALKALINE PHOSPHATASE 135 U/L (40-136); BILIRUBIN,TOTAL 0.2 MG/DL (0.1-1.0); BUN/CREATININE RATIO 38; CALCIUM 8.4 MG/DL (8.5-10.1); CREATININE SERUM 0.37 MG/DL (0.60-1.30); GFR ESTIMATED > 60; GLUCOSE 363 MG/DL (70-105); MAGNESIUM 1.7 MG/DL (1.8-2.4)
[2018-08-31 07:21] LABS: ALBUMIN 3.2 GM/DL (3.2-4.5); TOTAL PROTEIN 6.9 GM/DL (6.4-8.2)
[2018-08-31] MEDS ORDERED: NS IV 1000 ML 1,000 ML IV SCH (07:30)
[2018-08-31] MEDS ORDERED: MAGNESIUM OXIDE (MAG-OX)400 MG TAB PO ONE (07:30)
[2018-08-31] MEDS ORDERED: NS 1000 ML IV BAG IV ONE (07:30)
[2018-08-31 09:34] LABS: AMPHETAMINE SCREEN, URINE NEGATIVE (NEGATIVE); BARBITURATE SCREEN URINE NEGATIVE (NEGATIVE); BENZODIAZEPINES SCREEN URINE NEGATIVE (NEGATIVE); CANNABINOID SCREEN, URINE NEGATIVE (NEGATIVE); COCAINE SCREEN URINE NEGATIVE (NEGATIVE); METHADONE STAT NEGATIVE (NEGATIVE); METHAMPHETAMINE SCREEN URINE S NEGATIVE (NEGATIVE); OPIATE SCREEN URINE POSITIVE (NEGATIVE); OXYCODONE STAT NEGATIVE (NEGATIVE); PROPOXYPHENE STAT NEGATIVE (NEGATIVE); TRICYCLIC ANTIDEPRESSANTS SCRE NEGATIVE (NEGATIVE)
[2018-08-31 09:49] LABS: BILIRUBIN,URINE NEGATIVE (NEGATIVE); CLARITY,URINE CLEAR; COLOR,URINE YELLOW; GLUCOSE, URINE (UA) 3+ (NEGATIVE); KETONES,URINE 1+ (NEGATIVE); LEUKOCYTE ESTERASE ,URINE NEGATIVE (NEGATIVE); NITRITE,URINE NEGATIVE (NEGATIVE); PROTEIN,URINE 1+ (NEGATIVE); SQUAMOUS EPITHELIAL CELL,UR 0-2 /HPF; UROBILINOGEN,URINE 0.2 MG/DL (NORMAL)
[2018-08-31 10:53] VITALS: BP 99/69
[2018-09-01] MEDS ORDERED: DEXTROSE 10% IV SOLUTION 250 ML IV ONE (00:17)
== END 2018-08-31 10:53 | disposition home or self-care (01) ==
LOC: EDUNIT# 05:32 → ER FS 05:35
DX: R07.9 Chest pain, unspecified (principal); E86.0 Dehydration; E11.65 Type 2 diabetes mellitus with hyperglycemia; E87.1 Hypo-osmolality and hyponatremia; E83.42 Hypomagnesemia; E11.40 Type 2 diabetes mellitus with diabetic neuropathy, unspecified; I25.10 Atherosclerotic heart disease of native coronary artery without angina pectoris; E78.00 Pure hypercholesterolemia, unspecified; I10 Essential (primary) hypertension; I25.2 Old myocardial infarction; G56.03 Carpal tunnel syndrome, bilateral upper limbs; Z91.5 Personal history of self-harm; Z98.1 Arthrodesis status; Z88.4 Allergy status to anesthetic agent; Z82.49 Family history of ischemic heart disease and other diseases of the circulatory system; Z79.82 Long term (current) use of aspirin; Z79.4 Long term (current) use of insulin; Z87.891 Personal history of nicotine dependence; Z95.5 Presence of coronary angioplasty implant and graft; Z98.51 Tubal ligation status; Z98.890 Other specified postprocedural states
CPT/HCPCS: 36415; 71045; 80053; 80306; 81000; 82010; 83735; 83880; 84443; 84484; 85027; 85379; 85610; 85730; 93005; 93041

== ENCOUNTER 2018-10-13 18:05 | Day surgery (SDC) | payer SELFPAY ==
[~2018-10-13] VITALS: Ht 157.5 cm; Wt 72.9 kg
--- NOTE | 2018-10-13 18:23 | ED Integumentary General ---
General Chief Complaint: Skin/Wound Problems Stated Complaint: PAINFUL/SWOLLEN LT BREAST Source: patient, RN notes reviewed, old records Exam Limitations: no limitations History of Present Illness Date Seen by Provider: Oct 13, 2018 Time Seen by Provider: 18:18 Initial Comments Patient presents c/ c/o worsening left breast pain, swelling, and redness x 2 weeks. Reports seeing her PCP 2 weeks ago but was unable to secure the antibiotic until 4 days ago. States she has had previous abscesses I&D's in her left breast by surgeons. Timing/Duration: getting worse Location: torso (left breast) Possible Cause: other (suspected abscess) Associated Symptoms: denies symptoms, swelling/mass/lumps (left breast) Allergies and Home Medications Allergies Coded Allergies: coconut (Verified Allergy, Severe, anaphylactic reaction, 08/31/18) ketorolac (Unverified Allergy, Unknown, 08/31/18) Home Medications Albuterol Sulfate 1 Puff Puff, 2 PUFF INH Q4H PRN for SHORTNESS OF BREATH, (Reported) 1 PUFF = 90 MCG Aspirin 81 Mg Tab.chew, 81 MG PO DAILY, (Reported) Atorvastatin Calcium 80 Mg Tablet, 80 MG PO DAILY, (Reported) Clonazepam 0.5 Mg Tablet, 0.5 MG PO BID PRN for ANXIETY, (Reported) Doxycycline Hyclate 100 Mg Tablet, 100 MG PO BID Prescribed by: MURIEL CUEVAS on 07/30/181945 Fenofibrate Nanocrystallized 160 Mg Tablet, 160 MG PO DAILY, (Reported) Gabapentin 300 Mg Capsule, 300 MG PO TID, (Reported) Hydrocodone Bit/Acetaminophen 1 Tab Tab, 1 EACH PO Q6H PRN for PAIN-SEVERE Prescribed by: MURIEL CUEVAS on 07/30/181945 Insulin Detemir 100 Unit/1 Ml Insuln.pen, 25 UNIT SQ BID, (Reported) Insulin Lispro 100 Unit/1 Ml Insuln.pen, 20 UNIT SQ TIDAC, (Reported) Liraglutide 0.6 Mg/0.1 Ml Pen.injctr, 1.8 MG SQ DAILY, (Reported) Lorazepam 1 Mg Tablet, 1 MG PO BID PRN for ANXIETY Prescribed by: MURIEL CUEVAS on 08/24/182152 Metformin HCl 1,000 Mg Tablet, 1,000 MG PO BID, (Reported) LAST FILLED #60 12-15-18 Metoprolol Succinate 50 Mg Tab.er.24h, 50 MG PO BID, (Reported) LAST FILLED #60 18 Ondansetron 8 Mg Tab.rapdis, 8 MG PO Q6H PRN for NAUSEA/VOMITING-1ST LINE, (Reported) Pantoprazole Sodium 40 Mg Tablet.dr, 40 MG PO DAILY@0700 Prescribed by: LIZET URBAN on 06/01/18 0950 Promethazine HCl 25 Mg Tablet, 25 MG PO Q6H PRN for NAUSEA/VOMITING Prescribed by: MURIEL CUEVAS on 07/30/18 194 Ticagrelor 90 Mg Tablet, 90 MG PO BID, (Reported) Patient Home Medication List Home Medication List Reviewed: Yes Review of Systems Review of Systems Constitutional: see HPI Skin: see HPI, other (left breast redness, pain and swelling) All Other Systems Reviewed Negative Unless Noted: Yes (Negative excepted noted.) Past Ignsosp-Wxfeyp-Mbhltb Hx Patient Social History Drug of Choice: HX RX DRUG OVERDOSES Type Used: Cigarettes Former Smoker, Quit: Mar 14, 2018 2nd Hand Smoke Exposure: Yes Recent Hopitalizations: Yes (OVERDOSE 04/12/18, heart cath) Immunizations Up To Date Tetanus Booster (TDap): Unknown PED Vaccines UTD: No Date of Pneumonia Vaccine: September 09, 2016 Date of Influenza Vaccine: Mar 26, 2018 Seasonal Allergies Seasonal Allergies: No Past Medical History Surgeries: Yes Breast, Cardiac, Section, Coronary Stent, Orthopedic, Tubal Ligation Respiratory: Yes (Respiratory failure and intubation March 2018 secondary to overdose) Currently Using CPAP: No Currently Using BIPAP: No Cardiac: Yes (Hx of stent to LAD.) Coronary Artery Disease, Heart Attack, High Cholesterol, Hypertension 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) Neuropathy Reproductive Disorders: No 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 Sexually Transmitted Disease: No HIV/AIDS: No Genitourinary: No Gastrointestinal: Yes ("watermelon stomach disease") Musculoskeletal: Yes (carpal tunnel bilat hands; S/P BACK SURGERY/DISCECTOMY) Chronic Back Pain Endocrine: Yes Diabetes, Insulin dep HEENT: No Loss of Vision: Denies Hearing Impairment: Denies Cancer: No Psychosocial: Yes (OVERDOSE ON RX MEDS REQUIRING INTUBATION 04/12/18) Suicide Attempts Integumentary: No Blood Disorders: No Adverse Reaction/Blood Tranf: No Family Medical History Cardiovascular disease 19 FATHER, Onset:Unknown 19 MOTHER, Onset:Unknown Diabetes mellitus 19 FATHER 19 MOTHER Heart Disease, Diabetes, Other Conditions/Hx Physical Exam Vital Signs Vital Signs - First Documented 10/13/18 18:16 Temp 99.7 Pulse 126 Resp 18 B/P (MAP) 149/99 (116) Pulse Ox 96 O2 Delivery Room Air Capillary Refill : General Appearance: WD/WN, no apparent distress, obese Cardiovascular: tachycardia Respiratory: no respiratory distress Neurologic/Psychiatric: no motor/sensory deficits, alert, normal mood/affect, oriented x 3 Skin Problem Location: torso (left breast) Skin Problem Character: abscess, erythema, swelling, tenderness, warm Procedures/Interventions Date of ETT Placement: Apr 12, 2018 Time of ETT Placement: 405 Progress/Results/Core Measures Results/Orders Lab Results Laboratory Tests Test 10/13/18 18:30 10/13/18 19:50 10/13/18 20:28 Range/Units White Blood Count 7.1 4.3-11.0 10^3/uL Red Blood Count 4.83 4.35-5.85 10^6/uL Hemoglobin 11.4 L 11.5-16.0 G/DL Hematocrit 35 35-52 % Mean Corpuscular Volume 73 L 80-99 FL Mean Corpuscular Hemoglobin 24 L 25-34 PG Mean Corpuscular Hemoglobin Concent 32 32-36 G/DL Red Cell Distribution Width 15.9 H 10.0-14.5 % Platelet Count 426 H 130-400 10^3/uL Mean Platelet Volume 9.0 7.4-10.4 FL Neutrophils (%) (Auto) 58 42-75 % Lymphocytes (%) (Auto) 32 12-44 % Monocytes (%) (Auto) 6 0-12 % Eosinophils (%) (Auto) 3 0-10 % Basophils (%) (Auto) 1 0-10 % Neutrophils # (Auto) 4.1 1.8-7.8 X 10^3 Lymphocytes # (Auto) 2.3 1.0-4.0 X 10^3 Monocytes # (Auto) 0.4 0.0-1.0 X 10^3 Eosinophils # (Auto) 0.2 0.0-0.3 10^3/uL Basophils # (Auto) 0.0 0.0-0.1 10^3/uL Sodium Level 132 L 135-145 MMOL/L Potassium Level 3.9 3.6-5.0 MMOL/L Chloride Level 93 L 98-107 MMOL/L Carbon Dioxide Level 21 21-32 MMOL/L Anion Gap 18 H 5-14 MMOL/L Blood Urea Nitrogen 14 7-18 MG/DL Creatinine 0.62 0.60-1.30 MG/DL Estimat Glomerular Filtration Rate > 60 BUN/Creatinine Ratio 23 Glucose Level 439 *H 70-105 MG/DL Lactic Acid Level 3.09 *H 1.88 0.50-2.00 MMOL/L Calcium Level 9.2 8.5-10.1 MG/DL Corrected Calcium 9.4 8.5-10.1 MG/DL Total Bilirubin 0.3 0.1-1.0 MG/DL Aspartate Amino Transf (AST/SGOT) 16 5-34 U/L Alanine Aminotransferase (ALT/SGPT) 14 0-55 U/L Alkaline Phosphatase 161 H 40-136 U/L Total Protein 7.5 6.4-8.2 GM/DL Albumin 3.8 3.2-4.5 GM/DL Beta-Hydroxybutyrate (Chem panel) 0.11 0.00-0.27 MMOL/L Urine Color YELLOW Urine Clarity CLEAR Urine pH 5.5 5-9 Urine Specific [place] 1.010 L 1.016-1.022 Urine Protein 1+ H NEGATIVE Urine Glucose (UA) 3+ H NEGATIVE Urine Ketones NEGATIVE NEGATIVE Urine Nitrite NEGATIVE NEGATIVE Urine Bilirubin NEGATIVE NEGATIVE Urine Urobilinogen 0.2 NORMAL MG/DL Urine Leukocyte Esterase NEGATIVE NEGATIVE Urine RBC (Auto) NEGATIVE NEGATIVE Urine RBC RARE /HPF Urine WBC 0-2 /HPF Urine Squamous Epithelial Cells 2-5 /HPF Urine Renal Epithelial Cells /HPF Urine Crystals NONE /LPF Urine Calcium Oxalate Crystals /LPF Urine Cystine Crystals /LPF Urine Uric Acid Crystals /LPF Urine Amorphous Sediment /LPF Urine Bacteria TRACE /HPF Urine Casts NONE /LPF Urine Mucus NONE /LPF Urine Culture Indicated NO My Orders Orders - MADELYN RAMÍREZ DO Ed Iv/Invasive Line Start (10/13/18 18:21) Piperacillin/Tazobactam (Bulk) (Zosyn In (10/13/18 18:30) Vancomycin Injection (Vancomycin Injecti (10/13/18 18:22) Dexamethasone Injection (Decadron Inject (10/13/18 18:30) Cbc With Automated Diff (10/13/18 18:26) Comprehensive Metabolic Panel (10/13/18 18:26) Lactic Acid Analyzer (10/13/18 18:26) Blood Culture (10/13/18 18:26) Lactated Ringers (Lr 1000 Ml Iv Solution (10/13/18 18:30) Blood Culture (10/13/18 18:35) Vancomycin Injection (Vancomycin Injecti (10/13/18 18:33) Piperacillin Sodium/Tazobactam (Zosyn Vi (10/13/18 18:33) Ns (Ivpb) (Sodium Chloride 0.9% Ivpb Bag (10/13/18 18:33) Ns (Ivpb) (Sodium Chloride 0.9%) (10/13/18 18:33) Insulin Aspart (Novolog) (Novolog (Charg (10/13/18 19:45) Ua Culture If Indicated (10/13/18 19:38) Beta Hydroxybutyrate (10/13/18 19:39) Ns Iv 1000 Ml (Sodium Chloride 0.9%) (10/13/18 20:00) Diphenhydramine Injection (Benadryl Inje (10/13/18 20:00) Famotidine Injection (Pepcid Injection) (10/13/18 20:00) Urinalysis (10/13/18 20:02) Medications Given in ED Current Medications Medications Dose Ordered Sig/Tomasz Route Start Time Stop Time Status Last Admin Dose Admin Dexamethasone Sodium Phosphate 10 mg ONCE ONCE IV 10/13/18 18:30 10/13/18 18:48 DC 10/13/18 19:00 10 MG Diphenhydramine HCl 50 mg ONCE ONCE IVP 10/13/18 20:00 10/13/18 20:02 DC 10/13/18 20:09 50 MG Famotidine 40 mg ONCE ONCE IVP 10/13/18 20:00 10/13/18 20:02 DC 10/13/18 20:10 40 MG Insulin Aspart 10 unit ONCE ONCE SC 10/13/18 19:45 10/13/18 19:46 DC 10/13/18 19:51 10 UNIT Piperacillin Sod/ Tazobactam Sod 4.5 gm/Sodium Chloride 120 ml @ 240 mls/hr ONCE ONCE IV 10/13/18 18:30 10/13/18 18:59 DC 10/13/18 18:55 240 MLS/HR Vital Signs/I&O 10/13/18 18:16 Temp 99.7 Pulse 126 Resp 18 B/P (MAP) 149/99 (116) Pulse Ox 96 O2 Delivery Room Air Progress Progress Note : Progress Note Patient did c/o feeling itchy like she was breaking out p/ receiving the IV antibiotics. Went ahead and dose her c/ both Benadryl and Pepcid as well as come Decadron earlier. Departure Impression Primary Impression: Abscess/cellulitis left breast Additional Impressions: Elevated lactic acid level IDDM (insulin dependent diabetes mellitus) Disposition: ADMITTED INPATIENT Condition: Stable Admissions Decision to Admit/Date: Oct 13, 2018 Time/Decision to Admit Time: 20:33 Transfer Method of Transfer: EMS Departure-Patient Inst. Referrals: GHASSAN SAWYER MD (PCP/Family) Primary Care Physician MADELYN RAMÍREZ DO Oct 13, 2018 18:22
[2018-10-13] MEDS ORDERED: DEXAMETHASONE 10 MG/ML (DECADRON) 1 ML VIAL IV ONE (18:30)
[2018-10-13] MEDS ORDERED: LACTATED RINGERS 1,000 ML IV SCH (18:30)
[2018-10-13] MEDS ORDERED: PIPERACILLIN/TAZOBACTAM (BULK) 4.5 GM in NS (IVPB) 100 ML IV ONE (18:30)
[2018-10-13] MEDS ORDERED: VANCOMYCIN 1000 MG/VIAL ONE (18:33)
[2018-10-13] MEDS ORDERED: PIPERACILLIN/TAZO 4.5 GM VIAL (ZOSYN) IV ONE (18:33)
[2018-10-13] MEDS ORDERED: NS (IVPB) 100 ML ONE (18:33)
[2018-10-13] MEDS ORDERED: NS (IVPB) 250 ML ONE (18:33)
[2018-10-13 18:45] LABS: HEMATOCRIT 35 % (35-52); HEMOGLOBIN 11.4 G/DL (11.5-16.0); MEAN CORPUSCULAR HEMOGLOBIN 24 PG (25-34); MEAN CORPUSCULAR VOLUME 73 FL (80-99); WHITE BLOOD COUNT 7.1 10^3/uL (4.3-11.0)
[2018-10-13 18:46] LABS: BASOPHILS % (AUTO) 1 % (0-10); EOSINOPHILS % (AUTO) 3 % (0-10); LYMPHOCYTES % (AUTO) 32 % (12-44); MEAN CORPUSCULAR HGB CONC 32 G/DL (32-36); MONOCYTES % (AUTO) 6 % (0-12); NEUTROPHILS % (AUTO) 58 % (42-75); PLATELET COUNT 426 10^3/uL (130-400); RED CELL DISTRIBUTION WIDTH 15.9 % (10.0-14.5)
[2018-10-13 18:47] LABS: EOSINOPHILS # (AUTO) 0.2 10^3/uL (0.0-0.3); LYMPHOCYTES # (AUTO) 2.3 X 10^3 (1.0-4.0); MONOCYTES # (AUTO) 0.4 X 10^3 (0.0-1.0); NEUTROPHILS # (AUTO) 4.1 X 10^3 (1.8-7.8)
[2018-10-13] MEDS: VANCOMYCIN INJECTION 1,000 MG in NS (IVPB) 250 ML IV STA ×2 (18:55→19:16)
[2018-10-13 19:17] LABS: BUN/CREATININE RATIO 23; CARBON DIOXIDE 21 MMOL/L (21-32); CHLORIDE 93 MMOL/L (98-107); CREATININE SERUM 0.62 MG/DL (0.60-1.30); GFR ESTIMATED > 60; POTASSIUM 3.9 MMOL/L (3.6-5.0); SODIUM 132 MMOL/L (135-145)
[2018-10-13 19:19] LABS: ALBUMIN 3.8 GM/DL (3.2-4.5); ALKALINE PHOSPHATASE 161 U/L (40-136); BILIRUBIN,TOTAL 0.3 MG/DL (0.1-1.0); CALCIUM 9.2 MG/DL (8.5-10.1); GLUCOSE 439 MG/DL (70-105); TOTAL PROTEIN 7.5 GM/DL (6.4-8.2)
[2018-10-13] MEDS ORDERED: inSUlin ASPART (NovoLOG) 1 UNIT/0.01 ML (CHARGE PER UNIT) SC ONE (19:45)
[2018-10-13 19:57] LABS: ALANINE AMINOTRANSFERASE 14 U/L (0-55)
[2018-10-13] MEDS ORDERED: FAMOTIDINE 20MG/2ML IV (PEPCID) IVP ONE (20:00)
[2018-10-13] MEDS ORDERED: NS IV 1000 ML 1,000 ML IV SCH (20:00)
[2018-10-13] MEDS ORDERED: diphenhydrAMINE 50 MG/ML INJ (BENADRYL) IVP ONE (20:00)
[2018-10-13 20:14] LABS: BILIRUBIN,URINE NEGATIVE (NEGATIVE); CLARITY,URINE CLEAR; COLOR,URINE YELLOW; GLUCOSE, URINE (UA) 3+ (NEGATIVE); KETONES,URINE NEGATIVE (NEGATIVE); LEUKOCYTE ESTERASE ,URINE NEGATIVE (NEGATIVE); NITRITE,URINE NEGATIVE (NEGATIVE); PH,URINE 5.5 (5-9); PROTEIN,URINE 1+ (NEGATIVE); UROBILINOGEN,URINE 0.2 MG/DL (NORMAL)
[2018-10-13 20:15] LABS: BACTERIA,URINE TRACE /HPF; RBC,URINE RARE /HPF; WBC,URINE 0-2 /HPF
[2018-10-13 22:02] VITALS: BP 132/90
[2018-10-13] MEDS ORDERED: inSUlin ASPART (NovoLOG) 1 UNIT/0.01 ML (CHARGE PER UNIT) SC SCH (22:15)
[2018-10-13] MEDS: NS IV 1000 ML 1,000 ML IV SCH (22:31)
[2018-10-14 00:36] VITALS: BP 128/85
[2018-10-14 04:00] VITALS: BP 134/88
[2018-10-14] MEDS: NS IV 1000 ML 1,000 ML IV SCH ×4 (05:19→22:38)
[2018-10-14] MEDS: inSUlin ASPART (NovoLOG) 1 UNIT/0.01 ML (CHARGE PER UNIT) SC SCH ×4 (06:21→22:28)
[2018-10-14 08:00] VITALS: BP 138/83
[2018-10-14] MEDS ORDERED: PREG50CA2 PO (10:25)
[2018-10-14] MEDS ORDERED: CLOP75TA69 PO (10:25)
[2018-10-14] MEDS ORDERED: PANT40TA2 PO (10:34)
--- NOTE | 2018-10-14 10:36 | History & Physical-Hospitalist ---
History of Present Illness HPI/Chief Complaint Chief Complaint: Left breast abscess. HPI: This as 38yoWF that has had a left breast cyst removed and presented to the ER with pain, swelling, and redness. She was placed on empiric antibiotics and Dr. Pathak General surgery has been consulted to evaluate the need for any type of incision and drainage. I have restarted her home medications I will limit the amount of insulin that we will give her here since she has become very labial and has not required as much insulin as she takes at home. I will order Hydrocodone for pain and pt is eager to get home when she is able. Source: patient Exam Limitations: no limitations Date Seen 10/14/18 Time Seen by a Provider: 09:30 Attending Physician Anastasiya Stallings MD PCP Brijesh Molina MD Referring Physician Date of Admission Oct 13, 2018 at 20:33 Home Medications & Allergies Home Medications Reviewed patient Home Medication Reconciliation performed by pharmacy medication reconciliations extracorporeal technician and/or nursing. Patients Allergies have been reviewed. Allergies Allergies Coded Allergies coconut (Verified Allergy, Severe, anaphylactic reaction, 08/31/18) ketorolac (Unverified Allergy, Unknown, 08/31/18) Past Ivdmpdh-Cwbmfm-Tifzdt Hx Past Med/Social Hx: Reviewed Nursing Past Med/Soc Hx, Reviewed and Corrections made Patient Social History Marrital Status: cohabiting Alcohol Use: Denies Use Recreational Drug Use: No Drug of Choice: HX RX DRUG OVERDOSES Smoking Status: Current Everyday Smoker Former Smoker, Quit: Mar 14, 2018 Type Used: Cigarettes 2nd Hand Smoke Exposure: No Recent Foreign Travel: No Contact w/other who traveled: No Recent Hopitalizations: Yes (OVERDOSE 04/12/18, heart cath) Recent Infectious Disease Expo: No Immunizations Up To Date Tetanus Booster (TDap): Unknown Pediatric: No Date of Pneumonia Vaccine: September 09, 2016 Date of Influenza Vaccine: Mar 26, 2018 Seasonal Allergies Seasonal Allergies: No Past Medical History Surgeries: Breast, Cardiac, Section, Coronary Stent, Orthopedic, Tubal Ligation Currently Using CPAP: No Currently Using BIPAP: No Cardiac: Coronary Artery Disease, Heart Attack, High Cholesterol, Hypertension Neurological: Neuropathy Reproductive: No Sexually Transmitted Disease: No HIV/AIDS: No Female Reproductive Disorders: Ovarian Cyst Tubal Ligation Musculoskeletal: Chronic Back Pain Endocrine: Diabetes, Insulin dep Loss of Vision: Denies Hearing Impairment: Denies Psychosocial: Suicide Attempts History of Blood Disorders: No Adverse Reaction to Blood Rivas: No Family History Cardiovascular disease 19 FATHER, Onset:Unknown 19 MOTHER, Onset:Unknown Diabetes mellitus 19 FATHER 19 MOTHER Heart Disease, Diabetes, Other Conditions/Hx Review of Systems Constitutional: see HPI, fever, malaise, weakness EENTM: no symptoms reported Respiratory: no symptoms reported Cardiovascular: no symptoms reported Gastrointestinal: no symptoms reported Genitourinary: no symptoms reported Musculoskeletal: no symptoms reported Skin: see HPI Psychiatric/Neurological: No Symptoms Reported Physical Exam Physical Exam Vital Signs Vital Signs - First Documented 10/13/18 18:16 Temp 99.7 Pulse 126 Resp 18 B/P (MAP) 149/99 (116) Pulse Ox 96 O2 Delivery Room Air Capillary Refill : Less Than 3 Seconds Height, Weight, BMI Height: 5'2.00" Weight: 160lbs. 13.1oz. 72.211095ph; 29.4 BMI Method:Stated General Appearance: No Apparent Distress, WD/WN, Chronically ill Eyes: Right Eye Normal Inspection, Right Eye PERRL HEENT: PERRL/EOMI, Normal ENT Inspection, Pharynx Normal, Moist Mucous Membranes Neck: Full Range of Motion, Normal Inspection, Non Tender Respiratory: Chest Non Tender, Lungs Clear, Normal Breath Sounds, No Accessory Muscle Use, No Respiratory Distress Cardiovascular: Regular Rate, Rhythm, No Edema, No Gallop, No JVD, No Murmur, Normal Peripheral Pulses Gastrointestinal: Normal Bowel Sounds, No Organomegaly, No Pulsatile Mass, Non Tender, Soft Back: Normal Inspection, No CVA Tenderness, No Vertebral Tenderness Extremity: Normal Capillary Refill, Normal Inspection, Normal Range of Motion, Non Tender, No Calf Tenderness, No Pedal Edema Neurologic/Psychiatric: Alert, Oriented x3, No Motor/Sensory Deficits, Normal Mood/Affect Skin: Normal Color, Warm/Dry, Other (left breast with mild erythema and hardn ess to touch 7 o'clock position) Lymphatic: No Adenopathy Results Results/Procedures Labs Laboratory Tests 10/13/18 18:30 Patient resulted labs reviewed. Assessment/Plan Admission Diagnosis Assessment: Left breast cellulitis with possible abscess consulting surgery DM Smoker Plan: IV abx Dr Pathak consultation Admission Status: Observation Diagnosis/Problems Diagnosis/Problems (1) Cellulitis of left breast Status: Acute (2) IDDM (insulin dependent diabetes mellitus) Status: Chronic (3) CAD (coronary artery disease) Status: Chronic Qualifiers: Coronary Disease-Associated Artery/Lesion type: [place] artery [place] vs. transplanted heart: deering heart Associated angina: without angina Qualified Codes: I25.10 - Atherosclerotic heart disease of [place] coronary artery without angina pectoris (4) Hypertension Status: Chronic Qualifiers: Hypertension type: essential hypertension Qualified Codes: I10 - Essential (primary) hypertension (5) Tobacco abuse Status: Chronic (6) Peripheral neuropathy Status: Chronic Qualifiers: Peripheral neuropathy type: polyneuropathy, unspecified Qualified Codes: G62.9 - Polyneuropathy, unspecified GALO JACKSON DO Oct 14, 2018 10:36
[2018-10-14] MEDS ORDERED: CLIN150C17 PO (10:39)
--- NOTE | 2018-10-14 10:51 | NUR ---
SPOKE WITH THE PATIENT ABOUT HER MEDICATIONS. SHE LISTED TO ME WHAT SHE IS CURRENTLY TAKING. SHE STATES SHE HAS RECENTLY SWITCHED PROVIDERS AT [facility] AND IS NOW SEEING DR. SAWYER. SHE STATES SHE HAD RAN OUT OF SOME OF HER MEDICATIONS PRIOR TO ESTABLISHING CARE WITH DR. SAWYER AND HE HAS NOT ORDERED/STARTED HER BACK ON SOME OF THE THINGS SHE USED TO TAKE IN THE PAST. [facility] FILLED: 10-10-18 CLINDAMYCIN 150MG 2 Q8H X 1 WEEK 10-10-18 PROTONIX 40MG BID 10-01-18 PLAVIX 75MG DAILY (PICKED UP 10-10-18) 09-17-18 GABAPENTIN 800MG QID (NO LONGER TAKING STATES IT WAS CHANGED TO LYRICA) [facility] VERIFIED THE PATIENTS CHART NOW STATES SHE IS TAKING LYRICA 50MG BID AND WAS GIVEN SAMPLES - PATIENT STATES SHE CAN NOT TOLERATE IT BID AND ONLY TAKES 1 AT HS CURRENTLY. SHE ALSO REPORTS SHE TAKES METFORMIN 1000MG BID - I WAS NOT ABLE TO VERIFY A LAST FILLED DATE BUT SHE STATES SHE HAS THIS SUPPLY FROM [facility] AND SHE IS NOT OUT OF IT. SHE STATES SHE HAS AN ALBUTEROL INHALER NEEDED AND ALSO USES 1.8MG VICTOZA DAILY, LEVEMIR 30 UNITS BID, AND HUMALOG 20 UNITS WITH MEALS SHE HAD FROM [facility]. SHE ALSO TAKES 2 OTC ASPIRIN 81MG CHEW TABS DAILY.
[2018-10-14] MEDS ORDERED: INSULIN LISPRO 20 UNIT SQ SCH (11:00)
[2018-10-14] MEDS ORDERED: RT-ALBUTEROL SULF 2.5 MG/3 ML PRE-MIX VIAL INH PRN (11:00)
[2018-10-14 12:00] VITALS: BP 134/86
[2018-10-14] MEDS: HYDROcodone/APAP 5 MG/325 MG (LORTAB) TAB PO PRN ×2 (13:07→22:39)
--- NOTE | 2018-10-14 13:57 | Consultation (Surgery) ---
History of Present Illness History of Present Illness Patient Consulted On(juan/time) 10/14/18 13:51 Date Seen by Provider: Oct 14, 2018 Time Seen by Provider: 13:52 History of Present Illness Consult requested by Dr. Medel for left breast abscess Patient is a 38-year-old female who presented to the [facility] emergency department for left breast pain. Patient's been having pain for approximately 2 weeks. Continuing to increase in intensity. Patient states moderate to severe pain in the left breast no radiation of pain. Patient with erythema and swelling. No nipple discharge. Patient has history of abscess in the left breast. This has previously required surgical intervention she states. Patient states that nothing was seems to make the pain better. Nothing seems to be making it worse that she knows of. Patient has been unable to get into her primary care doctor she states. Patient with no other complaints at this time. She denies any fever sweats chills shortness of breath or chest pain at this time. She has not had any radiological images. Allergies and Home Medications Allergies Coded Allergies: coconut (Verified Allergy, Severe, anaphylactic reaction, 08/31/18) ketorolac (Unverified Allergy, Unknown, 08/31/18) Home Medications Albuterol Sulfate 1 Puff Puff, 2 PUFF INH Q4H PRN for SHORTNESS OF BREATH, (Reported) 1 PUFF = 90 MCG Aspirin 81 Mg Tab.chew, 162 MG PO DAILY, (Reported) TAKES 2 (81MG) TABLETS Clindamycin HCl 150 Mg Capsule, 300 MG PO Q8H, (Reported) FILLED 7 DAY SUPPLY 10-10-18 TAKES 2 (150MG) CAPSULES Clopidogrel Bisulfate 75 Mg Tablet, 75 MG PO DAILY, (Reported) Insulin Detemir 100 Unit/1 Ml Insuln.pen, 30 UNIT SQ BID, (Reported) Insulin Lispro 100 Unit/1 Ml Insuln.pen, 20 UNIT SQ TIDAC, (Reported) Liraglutide 0.6 Mg/0.1 Ml Pen.injctr, 1.8 MG SQ DAILY, (Reported) Metformin HCl 1,000 Mg Tablet, 1,000 MG PO BID, (Reported) Pantoprazole Sodium 40 Mg Tablet.dr, 40 MG PO BID, (Reported) Pregabalin 50 Mg Capsule, 50 MG PO HS, (Reported) Patient Home Medication List Home Medication List Reviewed: Yes Past Anhejvl-Zurygp-Kplrks Hx Patient Social History Alcohol Use: Denies Use Recreational Drug Use: No Drug of Choice: HX RX DRUG OVERDOSES Smoking Status: Current Everyday Smoker Former Smoker, Quit: Mar 14, 2018 Type Used: Cigarettes 2nd Hand Smoke Exposure: No Recent Foreign Travel: No Contact w/Someone Who Travel: No Recent Infectious Disease Expo: No Recent Hopitalizations: Yes (OVERDOSE 04/12/18, heart cath) Immunizations Up To Date Tetanus Booster (TDap): Unknown PED Vaccines UTD: No Date of Pneumonia Vaccine: September 09, 2016 Date of Influenza Vaccine: Mar 26, 2018 Seasonal Allergies Seasonal Allergies: No Surgeries History of Surgeries: Yes Surgeries: Breast, Cardiac, Section, Coronary Stent, Orthopedic, Tubal Ligation Respiratory History of Respiratory Disorde: Yes (Respiratory failure and intubation March 2018 secondary to overdose) Cardiovascular History of Cardiac Disorders: Yes (Hx of stent to LAD.) Cardiac Disorders: Coronary Artery Disease, Heart Attack, High Cholesterol, Hypertension Neurological History of Neurological Disord: 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) Neurological Disorders: Neuropathy Reproductive System Hx Reproductive Disorders: No Sexually Transmitted Disease: No HIV/AIDS: No Female Reproductive Disorders: Ovarian Cyst CERTIFIED HOME HEALTH AIDE History: Tubal Ligation Genitourinary History of Genitourinary Disor: No Gastrointestinal History of Gastrointestinal Di: Yes ("watermelon stomach disease") Musculoskeletal History of Musculoskeletal Dis: Yes (carpal tunnel bilat hands; S/P BACK SURGERY/DISCECTOMY) Musculoskeletal Disorders: Chronic Back Pain Endocrine History of Endocrine Disorders: Yes Endocrine Disorders: Diabetes, Insulin dep HEENT History of HEENT Disorders: No Loss of Vision: Denies Hearing Impairment: Denies Cancer History of Cancer: No Psychosocial History of Psychiatric Problem: Yes (OVERDOSE ON RX MEDS REQUIRING INTUBATION 04/12/18) Behavioral Health Disorders: Suicide Attempts Integumentary History of Skin or Integumenta: No Blood Transfusions History of Blood Disorders: No Adverse Reaction to a Blood Tr: No Family Medical History Significant Family History: Heart Disease, Diabetes, Other Conditions/Hx Family Medial History: Cardiovascular disease 19 FATHER, Onset:Unknown 19 MOTHER, Onset:Unknown Diabetes mellitus 19 FATHER 19 MOTHER Review of Systems-General Constitutional: see HPI EENTM: no symptoms reported Respiratory: no symptoms reported Genitourinary: no symptoms reported Musculoskeletal: no symptoms reported Skin: see HPI Psychiatric/Neurological: No Symptoms Reported Physical Exam-General Problems Physical Exam Vital Signs Vital Signs - First Documented 10/13/18 18:16 Temp 99.7 Pulse 126 Resp 18 B/P (MAP) 149/99 (116) Pulse Ox 96 O2 Delivery Room Air Capillary Refill : Less Than 3 Seconds General Appearance: WD/WN, no apparent distress HEENT: PERRL/EOMI, normal ENT inspection Neck: non-tender, full range of motion, supple Respiratory: chest non-tender, no respiratory distress, no accessory muscle use Cardiovascular: regular rate, rhythm Gastrointestinal: non tender, soft Rectal: deferred Back: no CVA tenderness Extremities: non-tender, normal inspection Neurologic/Psychiatric: clin asst II-XII nml as tested, no motor/sensory deficits, alert, normal mood/affect, oriented x 3 Skin: other (erythema skin left breast around the areola) Comments Left breast exam with nurse in the room erythema is noted above, feels like a fluctuant mass behind the area along, tenderness to palpation Data Review Labs Laboratory Tests 10/13/18 18:30: White Blood Count 7.1, Red Blood Count 4.83, Hemoglobin 11.4L, Hematocrit 35, Mean Corpuscular Volume 73L, Mean Corpuscular Hemoglobin 24L, Mean Corpuscular Hemoglobin Concent 32, Red Cell Distribution Width 15.9H, Platelet Count 426H, Mean Platelet Volume 9.0, Neutrophils (%) (Auto) 58, Lymphocytes (%) (Auto) 32, Monocytes (%) (Auto) 6, Eosinophils (%) (Auto) 3, Basophils (%) (Auto) 1, Neutrophils # (Auto) 4.1, Lymphocytes # (Auto) 2.3, Monocytes # (Auto) 0.4, Eosinophils # (Auto) 0.2, Basophils # (Auto) 0.0, Sodium Level 132L, Potassium Level 3.9, Chloride Level 93L, Carbon Dioxide Level 21, Anion Gap 18H, Blood Urea Nitrogen 14, Creatinine 0.62, Estimat Glomerular Filtration Rate > 60, BUN/Creatinine Ratio 23, Glucose Level 439*H, Lactic Acid Level 3.09*H, Calcium Level 9.2, Corrected Calcium 9.4, Total Bilirubin 0.3, Aspartate Amino Transf (AST/SGOT) 16, Alanine Aminotransferase (ALT/SGPT) 14, Alkaline Phosphatase 161H , Total Protein 7.5, Albumin 3.8, Beta-Hydroxybutyrate (Chem panel) 0.11 10/13/18 19:50: Urine Color YELLOW, Urine Clarity CLEAR, Urine pH 5.5, Urine Specific [place] 1.010L, Urine Protein 1+H, Urine Glucose (UA) 3+H, Urine Ketones NEGATIVE, Urine Nitrite NEGATIVE, Urine Bilirubin NEGATIVE, Urine Urobilinogen 0.2, Urine Leukocyte Esterase NEGATIVE, Urine RBC (Auto) NEGATIVE, Urine RBC RARE, Urine WBC 0-2, Urine Squamous Epithelial Cells 2-5, Urine Renal Epithelial Cells , Urine Crystals NONE, Urine Calcium Oxalate Crystals , Urine Cystine Crystals , Urine Uric Acid Crystals , Urine Amorphous Sediment , Urine Bacteria TRACE, Urine Casts NONE, Urine Mucus NONE, Urine Culture Indicated NO 10/13/18 20:28: Lactic Acid Level 1.88 10/14/18 05:56: Glucometer 349H 10/14/18 10:59: Glucometer 264H Assessment/Plan Assessment/Plan Assessment/Plan Left breast pain, mass, possible abscess We'll get ultrasound of left rest for further evaluation. Make nothing by mouth after midnight since she just ate. Patient states that she had possible rash from vancomycin or Zosyn. Will place on clindamycin. Consent for incision and drainage of left breast abscess pending ultrasound results. Patient understands risk and benefits of procedure if needed and wishes to proceed if needed. LEIDY GARCIA DO Oct 14, 2018 13:56
--- NOTE | 2018-10-14 14:41 | Diagnostic Imaging Report ---
INDICATION: Left breast pain. TECHNIQUE: Multiple Real-time grayscale images were obtained over the left breast in various projections. FINDINGS: There is a complex predominantly hypoechoic fluid collection posterior to the left nipple measuring 3.2 x 2.8 x 2.1 cm. This is suspect for a developing abscess. There is no blood flow within it. There are no other discrete solid or cystic masses appreciated in the left breast. IMPRESSION: Probably benign findings. ACR BI-RADS Category 3: Probably benign findings. Complex fluid collection in the retroareolar region left breast suspect for developing abscess. Recommend clinical correlation Dictated by: Dictated on workstation # [id number]
[2018-10-14] MEDS: CLINDAMYCIN 600 MG/50 ML IVPB 50 ML IV SCH ×2 (15:55→22:27)
[2018-10-14] MEDS: metFORMIN 500 MG (GLUCOPHAGE) TAB PO SCH (16:06)
[2018-10-14 16:33] VITALS: BP 127/74
[2018-10-14 19:29] VITALS: BP 122/78
[2018-10-14] MEDS: PANTOPRAZOLE 40 MG (PROTONIX) TAB PO SCH (20:15)
[2018-10-14] MEDS ORDERED: PREGABALIN 50 MG (LYRICA) CAP PO SCH (21:00)
[2018-10-15] VITALS (11 sets, daily range): BP systolic 108–128; BP diastolic 66–88
[2018-10-15] MEDS: HYDROcodone/APAP 5 MG/325 MG (LORTAB) TAB PO PRN ×2 (04:49→13:46)
--- NOTE | 2018-10-15 04:49 | NUR ---
Pt c/o chest pressure and hands swelling. Dr. Alfaro notified. VS 139/85 HR 83 Resp 20 02 sat 99%. Lungs clear and diminished. Orders received to dc fluids and convert to saline lock. at bedside. Lortab 5/325mg given for chest pressure. Remains NPO for surgery.
[2018-10-15] MEDS: inSUlin ASPART (NovoLOG) 1 UNIT/0.01 ML (CHARGE PER UNIT) SC SCH ×3 (05:26→16:17)
[2018-10-15 06:13] LABS: BASOPHILS % (AUTO) 0 % (0-10); EOSINOPHILS # (AUTO) 0.1 10^3/uL (0.0-0.3); EOSINOPHILS % (AUTO) 2 % (0-10); HEMATOCRIT 29 % (35-52); HEMOGLOBIN 9.3 G/DL (11.5-16.0); LYMPHOCYTES # (AUTO) 2.7 X 10^3 (1.0-4.0); LYMPHOCYTES % (AUTO) 41 % (12-44); MEAN CORPUSCULAR HEMOGLOBIN 23 PG (25-34); MEAN CORPUSCULAR HGB CONC 32 G/DL (32-36); MEAN CORPUSCULAR VOLUME 72 FL (80-99); MEAN PLATELET VOLUME 9.1 FL (7.4-10.4); MONOCYTES # (AUTO) 0.4 X 10^3 (0.0-1.0); MONOCYTES % (AUTO) 5 % (0-12); NEUTROPHILS # (AUTO) 3.4 X 10^3 (1.8-7.8); NEUTROPHILS % (AUTO) 52 % (42-75); PLATELET COUNT 360 10^3/uL (130-400); WHITE BLOOD COUNT 6.6 10^3/uL (4.3-11.0)
[2018-10-15] MEDS: CLINDAMYCIN 600 MG/50 ML IVPB 50 ML IV SCH ×2 (06:23→13:51)
[2018-10-15] MEDS: metFORMIN 500 MG (GLUCOPHAGE) TAB PO SCH (06:31)
[2018-10-15 06:42] LABS: ALANINE AMINOTRANSFERASE 14 U/L (0-55); ALKALINE PHOSPHATASE 102 U/L (40-136); BILIRUBIN,TOTAL 0.2 MG/DL (0.1-1.0); BUN/CREATININE RATIO 17; CALCIUM 8.2 MG/DL (8.5-10.1); CARBON DIOXIDE 21 MMOL/L (21-32); CHLORIDE 109 MMOL/L (98-107); GFR ESTIMATED > 60; GLUCOSE 323 MG/DL (70-105); POTASSIUM 3.4 MMOL/L (3.6-5.0); SODIUM 139 MMOL/L (135-145); TOTAL PROTEIN 5.6 GM/DL (6.4-8.2)
[2018-10-15] MEDS: NS IV 1000 ML 1,000 ML IV SCH ×2 (07:54→11:18)
--- NOTE | 2018-10-15 08:47 | Progress Note ---
Subjective Date Seen by a Provider: Oct 15, 2018 Time Seen by a Provider: 08:45 Subjective/Events-last exam left breast internal grinder tender. u/s performed suggestive of abscess denies any new complaints. denies n/v fever sweats chills shortness of breath or chest pain at this time. Focused Exam Lactate Level 10/13/18 18:30: Lactic Acid Level 3.09*H 10/13/18 20:28: Lactic Acid Level 1.88 Objective Exam Vital Signs Date Time Temp Pulse Resp B/P (MAP) Pulse Ox O2 Delivery O2 Flow Rate FiO2 10/15/18 04:01 97.9 88 18 113/71 (85) 96 Room Air 10/15/18 00:25 98.8 95 18 108/66 (80) 97 Room Air 10/14/18 20:00 97 Room Air 10/14/18 19:29 97.9 87 20 122/78 (93) 98 Room Air 10/14/18 16:33 97.8 78 20 127/74 (91) 97 Room Air 10/14/18 13:04 98 Room Air 10/14/18 12:00 97.4 94 18 134/86 (102) 99 Room Air I & O 10/15/18 07:00 Intake Total 3825 ml Balance 3825 ml Capillary Refill : Less Than 3 Seconds General Appearance: No Apparent Distress, WD/WN, Chronically ill HEENT: PERRL/EOMI, Normal ENT Inspection, Pharynx Normal, Moist Mucous Membranes Neck: Full Range of Motion, Normal Inspection, Non Tender Respiratory: Chest Non Tender, No Accessory Muscle Use, No Respiratory Distress Cardiovascular: Regular Rate, Rhythm, No Edema, No Gallop, No JVD, No Murmur, Normal Peripheral Pulses Gastrointestinal: non tender, soft Extremity: Normal Capillary Refill, Normal Inspection, Normal Range of Motion, Non Tender, No Calf Tenderness, No Pedal Edema Neurologic/Psychiatric: Alert, Oriented x3, No Motor/Sensory Deficits, Normal Mood/Affect Skin: Normal Color, Warm/Dry, Other (left breast with mild erythema ) Lymphatic: No Adenopathy Other comments left breast with palpable mass/ abscess retroareolar Results Lab Laboratory Tests 10/14/18 10:59: Glucometer 264H 10/14/18 15:37: Glucometer 285H 10/14/18 21:10: Glucometer 391H 10/15/18 05:45: White Blood Count 6.6, Red Blood Count 3.99L, Hemoglobin 9.3L, Hematocrit 29L, Mean Corpuscular Volume 72L, Mean Corpuscular Hemoglobin 23L, Mean Corpuscular Hemoglobin Concent 32, Red Cell Distribution Width 17.0H, Platelet Count 360, Mean Platelet Volume 9.1, Neutrophils (%) (Auto) 52, Lymphocytes (%) (Auto) 41, Monocytes (%) (Auto) 5, Eosinophils (%) (Auto) 2, Basophils (%) (Auto) 0, Neutrophils # (Auto) 3.4, Lymphocytes # (Auto) 2.7, Monocytes # (Auto) 0.4, Eosinophils # (Auto) 0.1, Basophils # (Auto) 0.0, Sodium Level 139, Potassium Level 3.4L, Chloride Level 109H, Carbon Dioxide Level 21, Anion Gap 9, Blood Urea Nitrogen 12, Creatinine 0.70, Estimat Glomerular Filtration Rate > 60, BUN/Creatinine Ratio 17, Glucose Level 323H, Calcium Level 8.2L, Corrected Calcium 9.0, Total Bilirubin 0.2, Aspartate Amino Transf (AST/SGOT) 11, Alanine Aminotransferase (ALT/SGPT) 14, Alkaline Phosphatase 102, Total Protein 5.6L, Albumin 3.0L 10/15/18 06:07: Glucometer 316H Microbiology 10/13/18 Blood Culture - Preliminary, Resulted No growth Assessment/Plan Assessment/Plan Assessment/Plan Left breast pain, abscess Patient npo on iv abx plan i and d today of left breast Clinical Quality Measures DVT/VTE Risk/Contraindication: Risk Factor Score Per Nursin RFS Level Per Nursing on Admit: 2=Moderate LEIDY GARCIA DO Oct 15, 2018 08:47
[2018-10-15] MEDS ORDERED: NON-FORMULARY MEDICATION 1 EA EA (Liraglutide (Victoza 2-Pak) 1.8 MG) SQ SCH (09:00)
[2018-10-15] MEDS ORDERED: ASPIRIN 81 MG CHEW (CHILDREN'S ASA) PO SCH (09:00)
[2018-10-15] MEDS ORDERED: fentaNYL INJECTION 100 MCG/2 ML AMP ONE (10:46)
[2018-10-15] MEDS ORDERED: MIDAZOLAM 2 MG/2 ML (VERSED) VIAL ONE (10:46)
--- NOTE | 2018-10-15 11:01 | Progress Note-Hospitalist ---
Subjective HPI/CC On Admission Date Seen by Provider: Oct 15, 2018 Time Seen by Provider: 10:00 Chief Complaint: Left breast abscess. HPI: This as 38yoWF that has had a left breast cyst removed and presented to the ER with pain, swelling, and redness. She was placed on empiric antibiotics and Dr. Pathak General surgery has been consulted to evaluate the need for any type of incision and drainage. I have restarted her home medications I will limit the amount of insulin that we will give her here since she has become very labial and has not required as much insulin as she takes at home. I will order Hydrocodone for pain and pt is eager to get home when she is able. Focused Exam Lactate Level 10/13/18 18:30: Lactic Acid Level 3.09*H 10/13/18 20:28: Lactic Acid Level 1.88 Objective Exam Vital Signs Vital Signs Date Time Temp Pulse Resp B/P (MAP) Pulse Ox O2 Delivery O2 Flow Rate FiO2 10/15/18 17:26 89 18 123/85 100 Nasal Cannula 3.00 10/15/18 16:02 98.1 Capillary Refill : Less Than 3 Seconds General Appearance: No Apparent Distress, WD/WN, Chronically ill HEENT: PERRL/EOMI, Normal ENT Inspection, Pharynx Normal, Moist Mucous Membranes Neck: Full Range of Motion, Normal Inspection, Non Tender Respiratory: Chest Non Tender, No Accessory Muscle Use, No Respiratory Distress Cardiovascular: Regular Rate, Rhythm, No Edema, No Gallop, No JVD, No Murmur, Normal Peripheral Pulses Gastrointestinal: Normal Bowel Sounds, No Organomegaly, No Pulsatile Mass, Non Tender, Soft Back: Normal Inspection, No CVA Tenderness, No Vertebral Tenderness Extremity: Normal Capillary Refill, Normal Inspection, Normal Range of Motion, Non Tender, No Calf Tenderness, No Pedal Edema Neurologic/Psychiatric: Alert, Oriented x3, No Motor/Sensory Deficits, Normal Mood/Affect Skin: Normal Color, Warm/Dry, Other (left breast with mild erythema ) Lymphatic: No Adenopathy Results/Procedures Lab Laboratory Tests 10/15/18 05:45 Patient resulted labs reviewed. Diagnosis/Problems Diagnosis/Problems (1) Cellulitis of left breast Status: Acute (2) IDDM (insulin dependent diabetes mellitus) Status: Chronic (3) CAD (coronary artery disease) Status: Chronic Qualifiers: Coronary Disease-Associated Artery/Lesion type: [place] artery [place] vs. transplanted heart: [place] heart Associated angina: without angina Qualified Codes: I25.10 - Atherosclerotic heart disease of [place] coronary artery without angina pectoris (4) Hypertension Status: Chronic Qualifiers: Hypertension type: essential hypertension Qualified Codes: I10 - Essential (primary) hypertension (5) Tobacco abuse Status: Chronic (6) Peripheral neuropathy Status: Chronic Qualifiers: Peripheral neuropathy type: polyneuropathy, unspecified Qualified Codes: G62.9 - Polyneuropathy, unspecified Clinical Quality Measures DVT/VTE Risk/Contraindication: Risk Factor Score Per Nursin RFS Level Per Nursing on Admit: 2=Moderate GALO JACKSON DO Oct 15, 2018 11:01
[2018-10-15] MEDS ORDERED: BUP/EPI 0.5% 1:200,000 (SENSORCAINE) 30 ML VIAL ONE (11:16)
[2018-10-15] MEDS ORDERED: ONDANSETRON 4 MG/2 ML (SDV) Z0FRAN ONE (11:31)
[2018-10-15] MEDS ORDERED: LIDOCAINE PF 2% 5 ML (XYLOCAINE) VIAL ONE (11:31)
[2018-10-15] MEDS ORDERED: proPOfol 200 MG/20 ML (DIPRIVAN) VIAL IV ONE (11:31)
[2018-10-15] MEDS ORDERED: HYDROmorphone 2 MG/ML VIAL (DILAUDID) ONE (11:52)
[2018-10-15] MEDS ORDERED: morphine INJ 10 MG/ML 1ML (SYR OR VIAL) IVP ONE (12:15)
[2018-10-15] MEDS ORDERED: ONDANSETRON 4 MG/2 ML (SDV) Z0FRAN IVP PRN (12:15)
[2018-10-15] MEDS ORDERED: HYDROmorphone 2 MG/ML VIAL (DILAUDID) IV ONE (12:15)
[2018-10-15] MEDS ORDERED: fentaNYL INJECTION 100 MCG/2 ML AMP IVP ONE (12:15)
--- NOTE | 2018-10-15 12:20 | Anesthesia-General Post-Op ---
General Patient Condition Mental Status/LOC: Same as Preop Cardiovascular: Satisfactory Nausea/Vomiting: Absent Respiratory: Satisfactory Pain: Controlled Complications: Absent Post Op Complications Complications None Follow Up Care/Instructions Patient Instructions None needed. Anesthesia/Patient Condition Patient Condition Patient is doing well, no complaints, stable vital signs, no apparent adverse anesthesia problems. No complications reported per nursing. DAVID SHANNON CRNA Oct 15, 2018 12:20
[2018-10-15] MEDS: CLOPIDOGREL 75 MG (PLAVIX) TABLET PO SCH ×2 (13:35→13:51)
[2018-10-15] MEDS: PANTOPRAZOLE 40 MG (PROTONIX) TAB PO SCH (13:47)
--- NOTE | 2018-10-15 15:25 | Discharge Summary-Hospitalist ---
Diagnosis/Chief Complaint Date of Admission Oct 13, 2018 at 21:50 Date of Discharge Discharge Date: Oct 15, 2018 Admission Diagnosis Assessment: Left breast cellulitis with possible abscess consulting surgery DM Smoker Plan: IV abx Dr Pathak consultation Discharge Diagnosis (1) Cellulitis of left breast Status: Acute (2) IDDM (insulin dependent diabetes mellitus) Status: Chronic (3) CAD (coronary artery disease) Status: Chronic (4) Hypertension Status: Chronic (5) Tobacco abuse Status: Chronic (6) Peripheral neuropathy Status: Chronic Discharge Summary Discharge Physical Exam Allergies: Coded Allergies: coconut (Verified Allergy, Severe, anaphylactic reaction, 08/31/18) ketorolac (Unverified Allergy, Unknown, 08/31/18) Vitals & I&Os Vital Signs Date Time Temp Pulse Resp B/P (MAP) Pulse Ox O2 Delivery O2 Flow Rate FiO2 10/15/18 17:26 89 18 123/85 100 Nasal Cannula 3.00 10/15/18 16:02 98.1 General Appearance: No Apparent Distress, WD/WN Respiratory: Chest Non Tender, Lungs Clear, Normal Breath Sounds, No Accessory Muscle Use, No Respiratory Distress Cardiovascular: Regular Rate, Rhythm, No Edema, No Gallop, No JVD, No Murmur, Normal Peripheral Pulses Neurologic/Psychiatric: Alert, Oriented x3, No Motor/Sensory Deficits, Normal Mood/Affect Hospital Course Was the Problem List Reviewed?: Yes Note from today: Going to OR today for left breast abscess I&D Denies any significant increased pain No fever IV antibiotics maintained Bowels are moving No SOB or chest pain I recommended her to ambulate in the halls in the meantime Conferred with Dr. Pathak Patient had I&D with removal of pustular material and was ready for DC so arrangements were made for f/u with [facility] and Dr Pathak. Labs (last 24 hrs) Laboratory Tests 10/14/18 21:10: Glucometer 391H 10/15/18 05:45: White Blood Count 6.6, Red Blood Count 3.99L, Hemoglobin 9.3L, Hematocrit 29L, Mean Corpuscular Volume 72L, Mean Corpuscular Hemoglobin 23L, Mean Corpuscular Hemoglobin Concent 32, Red Cell Distribution Width 17.0H, Platelet Count 360, Mean Platelet Volume 9.1, Neutrophils (%) (Auto) 52, Lymphocytes (%) (Auto) 41, Monocytes (%) (Auto) 5, Eosinophils (%) (Auto) 2, Basophils (%) (Auto) 0, Neutrophils # (Auto) 3.4, Lymphocytes # (Auto) 2.7, Monocytes # (Auto) 0.4, Eosinophils # (Auto) 0.1, Basophils # (Auto) 0.0, Sodium Level 139, Potassium Level 3.4L, Chloride Level 109H, Carbon Dioxide Level 21, Anion Gap 9, Blood Urea Nitrogen 12, Creatinine 0.70, Estimat Glomerular Filtration Rate > 60, BUN/Creatinine Ratio 17, Glucose Level 323H, Calcium Level 8.2L, Corrected Calcium 9.0, Total Bilirubin 0.2, Aspartate Amino Transf (AST/SGOT) 11, Alanine Aminotransferase (ALT/SGPT) 14, Alkaline Phosphatase 102, Total Protein 5.6L, Albumin 3.0L 10/15/18 06:07: Glucometer 316H 10/15/18 12:35: Glucometer 208H 10/15/18 15:50: Glucometer 180H Microbiology 10/13/18 Blood Culture - Preliminary, Resulted No growth 10/15/18 Gram Stain, Resulted Pending 10/15/18 Anaerobic Culture, Resulted Pending 10/15/18 Surgical Culture - Preliminary, Resulted Patient resulted labs reviewed. Pending Labs Microbiology Date/Time Source Procedure Growth Status 10/15/18 11:37 Abscess Breast, Left Gram Stain Pending Resulted 10/15/18 11:37 Abscess Breast, Left Anaerobic Culture Pending Resulted 10/15/18 11:37 Abscess Breast, Left Surgical Culture - Preliminary Resulted Laboratory Tests 10/15/18 12:35: Glucometer 208 10/15/18 15:50: Glucometer 180 Discussion & Recommendations Discharge Planning: <30 minutes discharge planning Discharge Home Medications: Active Scripts Active Clindamycin HCl 300 Mg Capsule 600 Mg PO TID 7 Days Reported Protonix (Pantoprazole Sodium) 40 Mg Tablet.dr 40 Mg PO BID Plavix (Clopidogrel Bisulfate) 75 Mg Tablet 75 Mg PO DAILY Lyrica (Pregabalin) 50 Mg Capsule 50 Mg PO HS Victoza 2-Jin (Liraglutide) 0.6 Mg/0.1 Ml Pen.injctr 1.8 Mg SQ DAILY Ventolin Hfa (Albuterol Sulfate) 1 Puff Puff 2 Puff INH Q4H PRN 1 PUFF = 90 MCG Humalog Kwikpen (Insulin Lispro) 100 Unit/1 Ml Insuln.pen 20 Unit SQ TIDAC Levemir Flextouch (Insulin Detemir) 100 Unit/1 Ml Insuln.pen 30 Unit SQ BID Aspirin 81 Mg Tab.chew 162 Mg PO DAILY TAKES 2 (81MG) TABLETS Metformin HCl 1,000 Mg Tablet 1,000 Mg PO BID Instructions to patient/family Please see electronic discharge instructions given to patient. Clinical Quality Measures DVT/VTE Risk/Contraindication: Risk Factor Score Per Nursin RFS Level Per Nursing on Admit: 2=Moderate Problem Qualifiers (1) CAD (coronary artery disease): Coronary Disease-Associated Artery/Lesion type: [place] artery [place] vs. transplanted heart: [place] heart Associated angina: without angina Qualified Codes: I25.10 - Atherosclerotic heart disease of [place] coronary artery without angina pectoris (2) Hypertension: Hypertension type: essential hypertension Qualified Codes: I10 - Essential (primary) hypertension (3) Peripheral neuropathy: Peripheral neuropathy type: polyneuropathy, unspecified Qualified Codes: G62.9 - Polyneuropathy, unspecified GALO JACKSON DO Oct 15, 2018 15:25
--- NOTE | 2018-10-15 16:00 | NUR ---
received patient from surgery at 1235, did well post op, was up around 1400 tolerated clear liquid well, ate lunch ambulated [address] did good - no problem- dressing changes went over with patient and spouse, verbalized understanding - ok to discharge
[2018-10-15] MEDS ORDERED: CLIN300C11 PO (16:28)
--- NOTE | 2018-10-15 16:48 | Progress Note-Post Operative ---
Post-Operative Progess Note Surgeon (s)/Oxyacetylene Welder (s) Surgeon LEIDY GARCIA DO Oxyacetylene Welder: na Pre-Operative Diagnosis left breast abscess Post-Operative Diagnosis same Procedure & Operative Findings Date of Procedure 10/15/18 Procedure Performed/Findings incision and drainage left breast abscess Anesthesia Type gen Estimated Blood Loss Estimated blood loss (mL): min Specimens/Packing Specimens Removed culture left breast abscess LEIDY GARCIA DO Oct 15, 2018 16:48
--- NOTE | 2018-10-16 01:55 | OPERATIVE REPORT ---
DATE OF SERVICE: 10/15/2018 PREOPERATIVE DIAGNOSIS: Left breast abscess. POSTOPERATIVE DIAGNOSIS: Left breast abscess. PROCEDURE: Incision and drainage of left breast abscess. SURGEON: Leidy Pathak DO ANESTHESIA: General. ESTIMATED BLOOD LOSS: Minimal. COMPLICATIONS: None. INDICATIONS: The patient is a 38-year-old female who presented with left breast pain. Ultrasound demonstrating findings consistent with abscess. Physical exam consistent with evidence of abscess. The patient with history of left breast abscess. The patient understands risks and benefits of procedure and wished to proceed with procedure. Consent was signed and on the chart. DESCRIPTION OF PROCEDURE: The patient was taken to the operating suite. She was prepped and draped in sterile fashion. Timeout was performed. Scar from previous incision was present. A 15 blade scalpel after local anesthetic was infiltrated in the area was then used to cut through this area and cautery was used to dissect down through the subcutaneous tissue into the abscess. Purulent material erupted, culture was obtained. All loculations were broken up with a finger. The wound was then irrigated with copious amounts of irrigation and suctioned. The hemostasis was achieved. The wound was then packed with iodoform gauze. The area was washed and dried and sterile bandage was applied. The patient tolerated procedure well without any complications. She was taken to recovery room in stable condition. Job ID: [id number] DocumentID: [id number] Dictated Date: 10/15/2018 17:01:09 Manager Pathology Date: 10/16/2018 01:55:28 Dictated By: LEIDY PATHAK DO
--- NOTE | 2018-10-16 07:52 | Anesthesia-General Post-Op ---
General Patient Condition Mental Status/LOC: Same as Preop Cardiovascular: Satisfactory Nausea/Vomiting: Absent Respiratory: Satisfactory Pain: Controlled Complications: Absent Post Op Complications Complications None Follow Up Care/Instructions Patient Instructions None needed. Anesthesia/Patient Condition Patient Condition Patient is doing well, no complaints, stable vital signs, no apparent adverse anesthesia problems. No complications reported per nursing. DAVID SHANNON CRNA Oct 16, 2018 07:52
--- OUTSIDE RECORDS SUMMARY | 2018-10-18 02:35 | XMS REPORT | Clinical Summary ---
Author Author [facility] Organization [facility] Address Unknown Phone Unavailable Care Team Providers Care Credit Assistant Name Role Phone Bri Thomas MD PCP Source Comments Some departments are not documenting in the electronic medical record. If you d o not see the information that you expected, contact Release of Information in [facility] Information Management department at [phone] for further assistan ce in locating additional records.[facility] Allergies Comments Active Allergy Reactions Severity Noted Date Coconut ANAPHYLAXIS High 09/27/2018 Ketorolac UNKNOWN Low 09/27/2018 Medications End Date Status Medication Sig Dispensed Refills Start Date Active aspirin 81 mg chewable Chew 81 mg by 0 tablet mouth daily. Take with food. Active atorvastatin (LIPITOR) 80 Take 80 mg by 0 mg tablet mouth daily. Active albuterol (PROAIR HFA, Inhale 2 0 VENTOLIN HFA, OR puffs by PROVENTIL HFA) 90 mouth into mcg/actuation inhaler the lungs every 6 hours as needed for Wheezing or Shortness of Breath. Shake well before use. Active clonazePAM (KLONOPIN) 0.5 Take 0.5 mg 0 mg tabletIndications: by mouth anxiety twice daily. Indications: anxiety Active fenofibrate(+) (TRIGLIDE) Take 160 mg 0 160 mg tablet by mouth daily. Take with food. Active gabapentin (NEURONTIN) Take 800 mg 0 300 mg capsule by mouth four times daily. Active insulin detemir(+) Inject 30 0 (LEVEMIR) 100 unit/mL Units under the skin twice daily. Active insulin lispro(+) Inject 10-20 0 (HUMALOG) 100 unit/mL Units under injectionIndications: BG the skin >200 patient takes 20 three times units daily with meals. Indications: BG >200 patient takes 20 units Active liraglutide(+) (VICTOZA) Inject 0.6 mg 0 0.6 mg/0.1 mL (18 mg/3 under the mL) pnij skin daily. Active metoprolol XL (TOPROL XL) Take 50 mg by 0 50 mg extended release mouth twice tablet daily. Active pantoprazole DR Take 40 mg by 0 (PROTONIX) 40 mg tablet mouth daily. Active clopiDOGrel (PLAVIX) 75 Take one 90 tablet 3 mg tablet tablet by 9 mouth daily. Active metFORMIN (GLUCOPHAGE) Take one 180 tablet 3 1,000 mg tablet by 9 tabletIndications: mouth twice Coronary artery disease daily with due to lipid rich plaque meals. ok to resume 10/11/18 10/08/2018 Discontinued metFORMIN (GLUCOPHAGE) Take 1,000 mg 0 1,000 mg tablet by mouth twice daily with meals. 10/08/2018 Discontinued ticagrelor (BRILINTA) 90 Take 90 mg by 0 mg mouth twice daily. 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 Encounters Care Team Description Date Type Specialty Franklyn Castro MD ANGIOGRAPHY CORONARY ARTERY WITH LEFT HEART CATHETERIZATION 10/08/2018 Surgery Cardiology Franklyn Castro MD Coronary artery disease due to lipid rich plaque 10/08/2018 Hospital Cardiology Encounter Yarely Omer MD 10/07/2018 Orders Only Vanessa Hull APRN Coronary artery disease due to lipid rich plaque (Primary Dx) 10/04/2018 Pre-Admit Cardiology Orders Only Rupa Rodriguez Precertification (NO Current INS.) 10/02/2018 Documentation Cardiology Franklyn Castro MD 09/30/2018 Hospital Cardiology Encounter Dionisio Elliott MD Hockstad, Eric, MD New Patient 09/30/2018 Office Visit Cardiology Swetha Singh RN Angina pectoris (HCC) (Primary Dx); Coronary artery disease due to lipid rich plaque; Dyspnea on exertion 09/30/2018 Prep for Case Cardiology Swetha Singh RN New Patient (2nd opinion) 09/27/2018 Patient Profile Cardiology Swetha Singh RN Records Request ([facility]) 09/26/2018 Documentation Cardiology Swetha Singh RN Patient Questions 09/26/2018 Telephone Cardiology Sarina Resendiz Records Request 09/06/2018 Telephone Cardiology Leslie Stephenson 09/02/2018 Telephone Cardiology from Last 3 Months Social History Date Tobacco Use Types Packs/Day Years Used Light Tobacco Smoker Smokeless Tobacco: Never Used Drinks/Week oz/Week Comments Alcohol Use Never Alcohol Habits Answer Date Recorded How often do you have a drink containing alcohol? Never 09/30/2018 How many drinks containing alcohol do you have on Not asked a typical day when you are drinking? How often do you have six or more drinks on one Not asked occasion? Sex Assigned at Date Recorded Not on file Industry Job Start Date Occupation Not on file Not on file Not on file Travel End Travel History Travel Start No recent travel history available. Last Filed Vital Signs Reading Time Taken Comments Vital Sign 131/98 10/08/2018 8:54 PM CDT Simultaneous filing. User may not have seen previous data. Blood Pressure 91 10/08/2018 8:54 PM CDT Simultaneous filing. User may not have seen previous data. Pulse 36.8 C (98.2 F) 10/08/2018 8:00 PM CDT Temperature - - Respiratory Rate 99% 10/08/2018 8:54 PM CDT Simultaneous filing. User may not have seen previous data. Oxygen Saturation - - Inhaled Oxygen Concentration 69.7 kg (153 lb 10.6 oz) 10/08/2018 11:20 AM CDT Weight 157.5 cm (5' 2") 10/08/2018 11:20 AM CDT Height 28.1 10/08/2018 11:20 AM CDT Body Mass Index Plan of Treatment Health Maintenance Due Date Last Done Comments PHYSICAL (COMPREHENSIVE) 02/02/1988 EXAM HIV SCREENING 02/02/1996 DILATED EYE EXAM 1999 DTAP/TDAP VACCINES (1 - 1999 Tdap) FOOT EXAM 1999 HBA1C 1999 MICROALBUMIN 1999 PNEUMONIA VACCINE (DM) 1999 CERVICAL CANCER SCREENING 2011 INFLUENZA VACCINE 01/14/2019 03/08/2018 Procedures Comments Procedure Name Priority Date/Time Associated Diagnosis POC GLUCOSE 10/08/2018 4:30 PM CDT CARDIAC CATH REPORT 10/08/2018 2:51 PM CDT POC ACTIVATED CLOTTING 10/08/2018 TIME 2:37 PM CDT POC ACTIVATED CLOTTING 10/08/2018 TIME 2:27 PM CDT TEST-URINE STAT 10/08/2018 11:40 AM CDT POC GLUCOSE 10/08/2018 11:16 AM CDT CARDIAC CATH REPORT Routine 10/08/2018 Angina pectoris (HCC) 10:54 AM CDT Coronary artery disease due to lipid rich plaque Dyspnea on exertion CARDIAC CATH REPORT Routine 10/01/2018 Angina pectoris (HCC) 6:36 AM CDT Coronary artery disease due to lipid rich plaque Dyspnea on exertion CBC Routine 09/30/2018 Coronary artery disease 3:28 PM CDT due to lipid rich plaque Pre-procedure lab exam BASIC METABOLIC PANEL Routine 09/30/2018 Coronary artery disease 3:28 PM CDT due to lipid rich plaque Pre-procedure lab exam ECG-SCAN 09/30/2018 12:00 AM CDT from Last 3 Months Results * POC GLUCOSE (10/08/2018 4:30 PM CDT) Only the most recent of 2 results within the time period is included. Glucose, POC 204 (H) 70 - 100 MG/DL [facility] Specimen Performing Organization Address City/State/Zipcode Phone Number MAIN [facility] [address] [place] [address] * CARDIAC CATH REPORT (10/08/2018 2:51 PM CDT) Procedure Note Franklyn Castro MD - 10/08/2018 2:51 PM CDT [facility] CARDIAC CATHETERIZATION REPORT Page 2 DACIA Arambula : 1980 #: [id number] MR #/Billing ID #: [id number] / [id number] DATE: 10/08/2018 VICE PRESIDENT FOR INSTRUCTION: Franklyn Castro MD DICTATING PROVIDER: Franklyn Castro MD REFERRING PHYSICIAN: BRI THOMAS PROCEDURES PERFORMED: 1. Coronary angiography. 2. Left heart catheterization. 3. iFR, instantaneous continuous wave free ratio, of the distal right coronary artery. INDICATIONS: This is a 38-year-old patient with severe diabetes mellitus and underlying coronary artery disease who has had multiple interventions at an outside institution and came for a 2nd opinion complaining of significant chest discomfort with any activity. She also has chest discomfort at rest. CONSENT: The patient was consented in the holding area prior to being brought to the cardiac catheterization laboratory. Risks of the procedure were discussed and included, but were not limited to the risk of stroke, myocardial infarction, . PROCEDURE DETAILS: The right groin was prepped and draped in the usual fashion at the patient's request. A 6-Macedonian sheath was placed in anticipation of possible interrogation with a fractional flow or iFR wire. Angiography was performed after placing a pigtail in the left ventricle for hemodynamic monitoring. We used a JL4 for multiple images of the left coronary. A JR4 was used for right coronary. At the completion of the diagnostic procedure, we elected to proceed with iFR of the right coronary artery. The patient was heparinized. Nitroglycerin was given through the coronary and an iFR wire was zeroed and advanced into the guide. However, it did not stay normalized, so we got a 2nd wire and this was successful in stabilizing, normalizing and crossing the lesion. iFR was 0.96 and therefore no intervention was performed. FINDINGS: HEMODYNAMICS: 1. Aortic pressure 164/97, mean 126 mmHg. 2. The left ventricular pressure 152/EDP 8 mmHg. ANATOMY: 1. LEFT MAIN: The left main coronary arose from left coronary cusp. It has a stent in the distal portion. It has no significant stenosis. There is a 30% ostial narrowing. It bifurcates into the left anterior descending and circumflex. 2. LEFT ANTERIOR DESCENDING: This artery has a stent extending from the ostium to the midportion. There is no significant in-stent restenosis. It supplies a diagonal in its midportion across the stented portion that may have some ostial narrowing. However, this is a very small caliber vessel. Smaller than 1.5 in diameter. 3. CIRCUMFLEX: Circumflex has an ostial 50% stenosis. The circumflex supplies a very high 1st obtuse marginal which has a 70% to 80% stenosis, but would require very complex intervention involving the left main obtuse marginal and circumflex. It is also not a large vessel. The continuation of the circumflex has 20% to 30% irregularities followed by a terminal obtuse marginal which is free of any significant disease. 4. RIGHT CORONARY ARTERY: The right coronary artery is dominant. It arises from right coronary cusp. It has a proximal 20% narrowing. In its midportion it has 10% irregularities, then distally it appears to have a 50% to 60% stenosis. It then supplies posterior descending and 2 posterolateral arteries, all of which appear to be free of disease. 5. As mentioned, iFR of the distal right coronary artery was 0.96, so no intervention was performed. CONTRAST: Visipaque-320 68 mL. MEDICATIONS: Lidocaine 20 mL, fentanyl 100 mcg, heparin 7000 units in divided doses, nitroglycerin 200 mcg, Versed 2 mg. Total physician sedation time was 26 minutes. FLUOROSCOPY TIME: 6 minutes with air kerma of 381 mGy. CONCLUSIONS: 1. Coronary artery disease with previous stented left main extending into the mid LAD without significant in-stent restenosis. 2. Stenosis of the 1st obtuse marginal in the range of 70% to 80%, but small caliber and I would not recommend intervention. 3. Ostial 50% stenosis of the circumflex. 4. 50% to 60% distal right coronary stenosis with a normal iFR. RECOMMENDATIONS: Medical management and aggressive treatment of diabetes which appears to be poorly controlled. MD MIKEY Seth/Barbara /[id number] P cc: - BRI THOMAS [facility] Organization Address City/State/Zipcode Phone Number OTHER OUTSIDE LAB * POC ACTIVATED CLOTTING TIME (10/08/2018 2:37 PM CDT) Only the most recent of 2 results within the time period is included. Activated 208 s [facility] Clotting Time Specimen Performing Organization Address [facility] Phone Number [facility] [address] [place] [address] * TEST-URINE (10/08/2018 11:40 AM CDT) Pathologist [facility] [place] Urine-HCG NEG [facility] Samples with Specific [place] <1.010 may result in a false negative test Specific 1.045 [facility] [place] Specimen Urine - Urine Performing Organization Address [facility] Phone Number [facility] [address] [phone] * CBC (09/30/2018 3:28 PM CDT) Pathologist [facility] [place] White Blood 9.6 4.5 - 11.0 K/UL [facility] Cells RBC 5.57 (H) 4.0 - 5.0 M/UL [facility] Hemoglobin 12.9 12.0 - 15.0 GM/DL [facility] Hematocrit 40.1 36 - 45 % [facility] MCV 72.0 (L) 80 - 100 FL [facility] MCH 23.1 (L) 26 - 34 PG [facility] MCHC 32.0 32.0 - 36.0 G/DL [facility] RDW 16.6 (H) 11 - 15 % [facility] Platelet Count 432 (H) 150 - 400 K/UL [facility] MPV 7.7 7 - 11 FL [facility] Specimen Blood Performing Organization Address [facility] Phone Number [facility] [address] [phone] * BASIC METABOLIC PANEL (09/30/2018 3:28 PM CDT) Pathologist [facility] [place] Sodium 132 (L) 137 - 147 MMOL/L [facility] Potassium 4.0 3.5 - 5.1 MMOL/L [facility] Chloride 97 (L) 98 - 110 MMOL/L [facility] CO2 23 21 - 30 MMOL/L [facility] Anion Gap 12 3 - 12 [facility] Glucose 385 (H) 70 - 100 MG/DL [facility] Blood Urea 15 7 - 25 MG/DL [facility] Nitrogen Creatinine 0.57 0.4 - 1.00 MG/DL [facility] Calcium 10.1 8.5 - 10.6 MG/DL [facility] eGFR Non >60 >60 mL/min [facility] Comment: [place] The eGFR is not validated for use in drug dosing adjustments.Continue to use estimated creatinine clearance per dosing reference text.Please contact the Clinical Pharmacist for questions. eGFR >60 >60 mL/min [facility] [place] Comment: The eGFR is not validated for use in drug dosing adjustments.Continue to use estimated creatinine clearance per dosing reference text.Please contact the Clinical Pharmacist for questions. Specimen Blood Performing Organization Address City/State/Zipcode Phone Number [facility] [address] [place] [address] * ECG-SCAN (09/30/2018 12:00 AM CDT) Narrative Performed At Ordered by an unspecified provider. from Last 3 Months Advance Directives Patient Acid Treater Explanation Type Date Recorded Advance 06/24/2013 2:35 PM Directive/DPOA Date Inactivated Comments Code Status Date Activated 10/08/2018 11:35 PM Full Code 10/08/2018 12:23 PM Provider has discussed Code Status No, discussion not w/Patient or Family? necessary based on Dx
--- OUTSIDE RECORDS SUMMARY | 2018-10-18 02:35 | XMS REPORT | Encounter Summary ---
Author Author [facility] Organization [facility] Address Unknown Phone Unavailable Care Team Providers Care Valve Pipe Irrigator Name Role Phone Bri Thomas MD PCP Reason for Visit * Auth/Cert Referred By Contact Referred To Contact Status Reason Specialty Diagnoses / Procedures Diagnoses Angina pectoris (HCC) Coronary artery disease due to lipid rich plaque Dyspnea on exertion P rocedures MT CATH PLMT L HRT & ARTS W/NJX & ANGIO IMG S&I MT PRQ TRLUML CORONARY STENT W/ANGIO ONE ART/BRNCH ANGIOGRAPHY CORONARY ARTERY WITH LEFT HEART CATHETERIZATION POSSIBLE PERCUTANEOUS CORONARY STENT PLACEMENT WITH ANGIOPLASTY Encounter Details Care Team Description Date Type Department Linden Castro MD [address] [facility] [place], [place] [id number] ANGIOGRAPHY CORONARY ARTERY WITH LEFT HEART CATHETERIZATION 10/08/2018 Surgery [facility] [address] [place] [address] Social History Date Tobacco Use Types Packs/Day [...] Travel Start No recent travel history available. 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 Cardiac cath 05/28/[address] [facility]- angiography only Cardiac cath 9 at [place]- Distal Left main-LAD stenting AIDA with kissing baloons, Ramus and Cx angioplasty Type 2 diabetes mellitus (HCC) 09/27/2018 Allergies: Coconut and Ketorolac Admission Lab/Radiology studies notable for: Hematology: Lab Results Component Value Date HGB 12.9 09/30/2018 HCT 40.1 09/30/2018 PLTCT 432 09/30/2018 WBC 9.6 09/30/2018 MCV 72.0 09/30/2018 MCHC 32.0 09/30/2018 MPV 7.7 09/30/2018 RDW 16.6 09/30/2018 , Coagulation: No results found for: PT, PTT, INR, General Chemistry: Lab Results Component Value Date NA 132 09/30/2018 K 4.0 09/30/2018 CL 97 09/30/2018 GAP 12 09/30/2018 BUN 15 09/30/2018 CR 0.57 09/30/2018 GLU 385 09/30/2018 CA 10.1 09/30/2018 Brief Hospital Course: 38-year-old patient with severe diabetes mellitus and u nderlying coronary artery disease who has had recent multiple interventions at a n outside institution and has not been on dual antiplatelet therapy. She came fo r a 2nd opinion complaining of significant chest discomfort with any activity. She also has chest discomfort at rest. Her cath showed the previously stented le ft main extending into the mid LAD was without significant in-stent restenosis. There was stenosis of the 1st obtuse marginal in the range of 70% to 80%, but th e vessel was small caliber and medical management was recommended. There was ost ial 50% stenosis of the circumflex and 50% to 60% distal right coronary stenosis with a normal iFR. She was resumed on Plavix 75 mg daily and will need ASA 81 mg EC daily for life. She states she can afford Plavix and just needs to pick it up at pharmacy. She needs aggressive risk factor modifcation and aggressive control of her diabetes. Her post procedure course was uncomplicated and she was discharged home in stabl e condition later the same day in stable condition. Upon discharge the patient a nd family were given post procedure instructions/restrictions as well as written instructions ( see Discharge instructions). She will follow up with her doctors in [place] for ongoing Cardiology care. Condition at Discharge: Stable; right groin D/I, without evidence of hematoma, b leeding, or bruit. Distal pulses intact. Pt was ambulatory in the halls without complaint prior to discharge. BP (!) 131/98 Comment: Simultaneous filing. User m ay not have seen previous data. | Pulse 91 Comment: Simultaneous filing. User quintin y not have seen previous data. | Temp (P) 36.8 C (98.3 F) | Ht 1.575 m (5' 2") | Wt 69.7 kg (153 lb 10.6 oz) | LMP 10/07/2018 (Exact Date) | SpO2 99% Co mment: Simultaneous filing. User may not have seen previous data. | BMI 28.10 kg /m Discharge Diagnoses: Hospital Problems Active Problems Coronary artery disease due to lipid rich plaque Type 2 diabetes mellitus (HCC) Abnormal EKG Significant Diagnostic Studies and Procedures: 10/08/2018 coronary angiogram CONCLUSIONS: 1. Coronary artery disease with previous stented left main extending into the mi d LAD without significant in-stent restenosis. 2. Stenosis of the 1st obtuse marginal in the range of 70% to 80%, but small eduardo iber and I would not recommend intervention. 3. Ostial 50% stenosis of the circumflex. 4. 50% to 60% distal right coronary stenosis with a normal iFR. RECOMMENDATIONS: Medical management and aggressive treatment of diabetes which appears to be poorly controlled. Patient Disposition: Home Patient instructions/medications: Procedure Specific Activity *You may drive after 2 days. *You may shower after discharge. *NO tub baths, hot tubs, or swimming for 5 days. *NO lifting greater than 15 pounds for 1 week. *NO sexual or strenuous activity for 1 week. Report These Signs and Symptoms Please contact your doctor if you have any of the following symptoms: Chest jamee n, shortness of breath, lightheadedness, dizziness, near fainting, palpitations, abd pain, back pain, or bleeding. Questions About Your Stay For questions or concerns regarding your hospital stay: - DURING BUSINESS HOURS (8:00 AM - 4:30 PM): Call [phone] and asked to be transferred to your discharge attending jos lebron. - AFTER BUSINESS HOURS (4:30 PM - 8:00 AM, on weekends, or holidays): Call [phone] and ask the grain drier operator to page the on-call doctor for the discha rge attending physician. Discharging attending physician: LINDEN CASTRO [[id number]] Cardiac Diet Limiting unhealthy fats and cholesterol is the most important step you can take in reducing your risk for cardiovascular disease. Unhealthy fats include satur ated and trans fats. Monitor your sodium and cholesterol intake. Restrict your sodium to 2g (grams) or 2000mg (milligrams) daily, and your cholesterol to 200m g daily. If you have questions regarding your diet at home, you may contact a dietitian luanne franks . Diabetic Diet You should eat between 1600 and 2000 calories per day. This is equal to 60g (g nemesio) of carbohydrates per meal, and 30g of carbohydrates for a bedtime snack. If you have questions about your diet after you go home, you can call a dietitia n at [phone]. Incision Care *Call if there is an increase in pain, swelling, or redness. *DO NOT soak incision in water. *NO tub baths, hot tubs, or swimming. *You may shower after discharge. Return Appointment Please follow up with your primary android ios developer in [place] Outside Provider Follow up with primary cardiology in [place] Current Discharge Medication List CONTINUE these medications which have been CHANGED or REFILLED Details metFORMIN (GLUCOPHAGE) 1,000 mg tablet Take one tablet by mouth twice daily with meals. ok to resume 10/11/18 Qty: 180 tablet, Refills: 3 PRESCRIPTION TYPE: No Print Associated Diagnoses: Coronary artery disease due to lipid rich plaque CONTINUE these medications which have NOT CHANGED Details albuterol (PROAIR HFA, VENTOLIN HFA, OR PROVENTIL HFA) 90 mcg/actuation inhaler Inhale 2 puffs by mouth into the lungs every 6 hours as needed for Wheezing or S hortness of Breath. Shake well before use. PRESCRIPTION TYPE: Historical Med aspirin 81 mg chewable tablet Chew 81 mg by mouth daily. Take with food. PRESCRIPTION TYPE: Historical Med atorvastatin (LIPITOR) 80 mg tablet Take 80 mg by mouth daily. PRESCRIPTION TYPE: Historical Med clonazePAM (KLONOPIN) 0.5 mg tablet Take 0.5 mg by mouth twice daily. Indication s: anxiety PRESCRIPTION TYPE: Historical Med clopiDOGrel (PLAVIX) 75 mg tablet Take one tablet by mouth daily. Qty: 90 tablet, Refills: 3 PRESCRIPTION TYPE: Normal fenofibrate(+) (TRIGLIDE) 160 mg tablet Take 160 mg by mouth daily. Take with fo od. PRESCRIPTION TYPE: Historical Med gabapentin (NEURONTIN) 300 mg capsule Take 800 mg by mouth four times daily. PRESCRIPTION TYPE: Historical Med insulin detemir(+) (LEVEMIR) 100 unit/mL Inject 30 Units under the skin twice da jovan. PRESCRIPTION TYPE: Historical Med insulin lispro(+) (HUMALOG) 100 unit/mL injection Inject 10-20 Units under the s kin three times daily with meals. Indications: BG >200 patient takes 20 units PRESCRIPTION TYPE: Historical Med liraglutide(+) (VICTOZA) 0.6 mg/0.1 mL (18 mg/3 mL) pnij Inject 0.6 mg under the skin daily. PRESCRIPTION TYPE: Historical Med metoprolol XL (TOPROL XL) 50 mg extended release tablet Take 50 mg by mouth twic e daily. PRESCRIPTION TYPE: Historical Med pantoprazole DR (PROTONIX) 40 mg tablet Take 40 mg by mouth daily. PRESCRIPTION TYPE: Historical Med The following medications were removed from your list. This list includes medic ations discontinued this stay and those removed from your prior med list in our system ticagrelor (BRILINTA) 90 mg Scheduled appointments: Dec 12, 2018 12:45 PM CDT New Patient with Kalyn Padilla MD [facility] (Neurology) [address] [address] Signed: Vanessa Hull APRN 10/11/2018 cc: Primary Care Physician: Bri Thomas Verified Referring physicians: Bri Thomas MD Additional provider(s): documented in this encounter Discharge Instructions * Patient Instructions* Oleg Connolly RN - 10/08/2018 4:35 PM CDT Manual Sheath Removal From A Large Vein Or Artery-KH When you go home: You may shower 24 hours after your procedure. Do not sit in water for one week. (No bath tub, swimming pool/hot tub, etc.) Keep the area clean and dry for one week (except for daily showers). Be sure your hands are clean when touching near the site. If a band-aid or dressing is still in place remove it before showering. Wash and dry thoroughly but gently. If needed, for your comfort, you may place a clean band-aid over the puncture site after you are clean and dry. It is best to leave it open to air as soon as it is comfortable to do so. Do not use ointments, creams, or powders on puncture site. Inspect site daily. Activity: (Unless otherwise instructed or unable to perform) Avoid any exertion for one week. Exertion is lifting over 15 lbs or pushing, pulling or straining. Avoid excessive bending, stooping, or stair climbing for 2 days. It is ok to go up stairs or bend over but take it slowly and keep it to a minimum. You may be up and about while relaxing at home as you recover. You may resume sexual activity in one week. You may begin driving 2 days after your procedure if you are otherwise able t o drive. ---It is common to have mild soreness and/or a small, soft bruise around the sit e that can take up to two weeks to go away. A small (dime to quarter sized) lump is also normal. A small amount of blood (not more than a teaspoon) from the sit e is also common. WHEN TO CALL THE DOCTOR: Complications are rare but can happen. If you have significant bleeding (more than a teaspoon) or a lump underneath the skin (bigger than a golf ball) at the site lie down, apply firm pressure at the site and call 911. Bleeding from a large vessel needs professional help. If you have signs of infection at the site such as: redness, warm to touch, d rainage, increasing soreness, a fever (100 degrees or more) and/or chills. Soreness that continues more than a week or unusual pain at the puncture site . Numbness, tingling, weakness in the affected leg. If your leg becomes cold and pale. If you have changes of vision, slurred speech or one-sided weakness. Who do I contact if I need to speak with someone? During Business Hours: [facility] Cardiology Office at the [facility]: (Sunday-Sunday) [place]: [phone] (Sunday-Sunday) [place]: [phone] (Sunday-Sunday) [place]: [phone] (Sunday and ) [place]: [phone] (Sunday-Sunday) [place]: [phone] (Sunday-Sunday) [place]: [phone] (Sunday-) [facility]: [phone] (Sunday, Sunday and Sunday) [place]: [phone] (Sunday, Sunday and Sunday) Jose Horowitz ([place]): [phone] (Sunday, Sunday and Sunday) Nights and Weekends [facility] Cardiology Office at the [facility]: This education is meant to serve as a resource to you and your family. It is not meant to be all inclusive. The members of the [employer] [facility] Center at [facility] Cardiology, , will be glad to answer any questions you may have about this booklet or your procedure. documented in this encounter Medications at Time of Discharge Start Date End Date Medication Sig Dispensed Refills albuterol (PROAIR HFA, Inhale 2 0 VENTOLIN HFA, OR puffs by PROVENTIL HFA) 90 mouth into mcg/actuation inhaler the lungs every 6 hours as needed for Wheezing or Shortness of Breath. Shake well before use. aspirin 81 mg chewable Chew 81 mg by 0 tablet mouth daily. Take with food. atorvastatin (LIPITOR) 80 Take 80 mg by 0 mg tablet mouth daily. clonazePAM (KLONOPIN) 0.5 Take 0.5 mg 0 mg tabletIndications: by mouth anxiety twice daily. Indications: anxiety 09/30/2018 clopiDOGrel (PLAVIX) 75 Take one 90 tablet 3 mg tablet tablet by mouth daily. fenofibrate(+) (TRIGLIDE) Take 160 mg 0 160 mg tablet by mouth daily. Take with food. gabapentin (NEURONTIN) Take 800 mg 0 300 mg capsule by mouth four times daily. insulin detemir(+) Inject 30 0 (LEVEMIR) 100 unit/mL Units under the skin twice daily. insulin lispro(+) Inject 10-20 0 (HUMALOG) 100 unit/mL Units under injectionIndications: BG the skin >200 patient takes 20 three times units daily with meals. Indications: BG >200 patient takes 20 units liraglutide(+) (VICTOZA) Inject 0.6 mg 0 0.6 mg/0.1 mL (18 mg/3 under the mL) pnij skin daily. 10/08/2018 metFORMIN (GLUCOPHAGE) Take one 180 tablet 3 1,000 mg tablet by tabletIndications: mouth twice Coronary artery disease daily with due to lipid rich plaque meals. ok to resume 10/11/18 metoprolol XL (TOPROL XL) Take 50 mg by 0 50 mg extended release mouth twice tablet daily. pantoprazole DR Take 40 mg by 0 (PROTONIX) 40 mg tablet mouth daily. documented as of this encounter Progress Notes * Gabriel Armendariz RN - 10/08/2018 9:23 PM CDT Dacia Ho discharged on 10/08/2018 at 2110. Discharge instructions were reviewed with patient by the previous nurse. (see no ginny) Groin site remains intact, no concerns at this time. * Laila Freeman - 10/08/2018 6:23 PM CDT I have gone over the patient's discharge instructions at 16:45 with her family tara fritz in the room. The patient stated that her boyfriend is going to be the one to pick her up, and he is 2 hours away in [place]. Upon contacting him, we orlando d several discussions and he stated he was concerned that she still had pain and since they did not stent, that he thought it wasn't resolved and would not come to pick her up. I involved the charge nurse Dioni and we both discussed with the "[id number] w" that is here with the patient and boyfriend, Angel, on the phone that they w ere going to follow up with neurology in the outpatient setting and that her LHC was negative, and we discharge the same day when patients do not receive a sten t in CCL. At 18:00 Angel said he understood and that he would try and get a car to come a nd pick her up. He stated they did not have enough gas to get here, so he was tr indra to find another car from someone else to come and get her. At 18:15, I contacted Gail from Case [employer], and she said she will contact me soon, but may be providing a list of homeless shelters in the area. I update d my cupola chargerHUY Wheatley of this. Will continue to monitor. * Laila Freeman - 10/08/2018 10:54 AM CDT Patient arrived on unit via ambulation accompanied by family. Patient transferre d to the bed without assistance. Frailty score equals 3 Assessment completed, r efer to flowsheet for details. Orders released, reviewed, and implemented as cony ropriate. Oriented to surroundings, call light within reach. Plan of care review ed. Will continue to monitor and assess. Patient has been in room prior to now, but just got approval for procedure. documented in this encounter H&P Notes * Vanessa Hull APRN - 10/04/2018 10:51 AM CDT Patient presents for procedure. Please see most recent H/P below. Vanessa Hull APRN-Marci Pager [phone] Office Visit 09/30/2018 [facility] Linden Castro MD Cardiovascular Disease Myocardial infarction, unspecified VT type, unspecified artery (HCC) +3 more Dx New Patient ; Referred by Bri Thomas MD Reason for Visit Progress Notes Linden Castro MD (Physician) Cardiovascular Disease 09/30/18 1 400 Addendum Date of Service: 09/30/2018 Dacia Ho is a 38 y.o. female. HPI I met Dacia today with her . During an episode of chest discomfort she w ent in to an outside hospital in November 2017 and had a stent placed in her LAD. She had 2 more stents put in her LAD after an abnormal FFR in February 2018. In June 2018 a repeat angiogram showed an abnormal FFR of the left main and LAD and she was referred to [facility] for surgical evaluation but surgery decl ined due to young age. Therefor a 3.0x12 Promus stent was placed in the ostium o f the LAD that partially extended into the left main, and kissing balloons were placed. After that procedure she had right facial droop and was diagnosed with B ell's Palsy although there has been suspicion for stroke as well. She continues to have neurologic deficiits that wax and wane. She has difficulty with speech. She was apparently on medications and overdosed at home we think in June 2018 and required intubation/rescucitation. She was on Brilinta and asp irin, but she couldn't afford the Brilinta and she did not take it. She continu es to have severe chest pain, and has been to [place] with symptoms three harlan es. The majority of the time she is in bed sleeping. She has chest pain all of the t cheng, sharp in her chest. It is not always associated with activity or worsened w ith activity. Vitals: 09/30/18 1419 BP: 132/72 Pulse: (!) 123 SpO2: 98% Weight: 69.9 kg (154 lb) Height: 1.575 m (5' 2") Body mass index is 28.17 kg/m. Past Medical History Patient Active Problem List Diagnosis Date Noted Coronary artery disease due to lipid rich plaque 09/27/2018 Coronary angiography and PCI 2018 at [facility]- Prox and mid LAD D ES x 2. Cardiac cath 05/28/[address] [facility]- angiography only Cardiac cath 05/30/2018 at [place]- Distal Left main-LAD stenting AIDA with kissin g micah Ramus and Cx angioplasty VT (myocardial infarction) ([facility]) 09/27/2018 Type 2 diabetes mellitus (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 HENT: Negative. Eyes: Positive for blurred vision, vision loss in left eye and vision loss in ri ght eye. Cardiovascular: Positive for chest pain, claudication, dyspnea on exertion, irre gular heartbeat and near-syncope. Respiratory: Positive for shortness of breath. Endocrine: Negative. Hematologic/Lymphatic: Negative. Does not bruise/bleed easily. Skin: Negative. Musculoskeletal: Positive for back pain and joint pain. Gastrointestinal: Negative. Genitourinary: Negative. Neurological: Positive for aphonia, excessive daytime sleepiness, focal weakness , loss of balance, numbness, paresthesias, sensory change and weakness. Psychiatric/Behavioral: Positive for depression and memory loss. The patient has insomnia and is nervous/anxious. Allergic/Immunologic: Negative. Physical Exam General Appearance: resting comfortably, no acute distress Skin: warm, dry Digits and Nails: no clubbing Eyes: conjunctivae and lids normal Lips & Oral Mucosa: no pallor or cyanosis Neck: neck veins are flat Thyroid: no nodules, masses, tenderness or enlargement Carotid Arteries: No bruits Chest Inspection: chest is normal in appearance Respiratory Effort: breathing is unlabored, no respiratory distress Chest auscultation: lungs clear to auscultation, no rales, rhonchi, or wheezing Cardiac: regular rhythm and normal rate, Normal S1 & S2, no S3 or S4, no rub Murmurs: no cardiac murmurs Radial Pulses: Palpable bilaterally Abdominal Exam: soft, non-tender, no masses, bowel sounds normal Abdominal Aorta: nonpalpable abdominal aorta; no abdominal bruits Liver & Spleen: no organomegaly Femoral artery: palpable, no bruits Lower Extremity: no lower extremity edema Neurologic Exam: neurological assessment grossly intact Orientation: oriented to time, place and person Affect & Mood: appropriate Cardiovascular Studies ECG today demonstrates sinus tachycardia with poor R wave progression anteriorly . There is suggestion of both anterior and inferior VT Problems Addressed Today No diagnosis found. Assessment and Plan 1. Coronary artery disease. She has significant chest discomfort as I mentioned below. However her symptoms are not entirely consistent with angina. She seem s to always have chest pain. She may be suffering from a different kind of ches t pain syndrome. However, her ECG is significantly abnormal with Q waves anteri chantale and inferiorly and she has had stents placed from her left main into her mi d left anterior descending artery and was only on dual antiplatelet therapy for 1 month. I am concerned she may have developed thrombosis. I would like to obt ain an echocardiogram. In addition because of her symptoms and my concerns on h er ECG I am recommending that she have a cardiac catheterization. We will make arrangements for that as well. Further recognitions will be after the echocardi ogram and angiogram. I am having her restart Plavix with a 300 mg load today an d then 75 mg daily. 2. Diabetes mellitus. Her tells me that she has poorly controlled diabe ginny mellitus and would like to see endocrine here. I will make arrangements for that. 3. "Abdullahi's palsy" versus a stroke. I am concerned that perhaps she did have an embolic event to the time of her cardiac catheterization. Very difficult to tel l based on her history. However she continues to have intermittent symptoms ruslan t sound somewhat ischemic. I am going to ask that she see neurology here as michael flores per their recommendations. Further recommendations will be after the echocardiogram and coronary angiogram. Addendum: Her laboratory values prior to cardiac catheterization are abnormal. Her glucose was 385. Her renal function appears to be normal. Current Medications (including today's revisions) albuterol (PROAIR HFA, VENTOLIN HFA, OR PROVENTIL HFA) 90 mcg/actuation inha ler Inhale 2 puffs by mouth into the lungs every 6 hours as needed for Wheezing or Shortness of Breath. Shake well before use. aspirin 81 mg chewable tablet Chew 81 mg by mouth daily. Take with food. atorvastatin (LIPITOR) 80 mg tablet Take 80 mg by mouth daily. clonazePAM (KLONOPIN) 0.5 mg tablet Take 0.5 mg by mouth twice daily. Indica tions: anxiety fenofibrate(+) (TRIGLIDE) 160 mg tablet Take 160 mg by mouth daily. Take wit h food. gabapentin (NEURONTIN) 300 mg capsule Take 800 mg by mouth four times daily. insulin detemir(+) (LEVEMIR) 100 unit/mL Inject under the skin daily. insulin lispro(+) (HUMALOG) 100 unit/mL injection Inject under the skin thr ee times daily before meals. liraglutide(+) (VICTOZA) 0.6 mg/0.1 mL (18 mg/3 mL) pnij Inject 0.6 mg under the skin daily. metFORMIN (GLUCOPHAGE) 1,000 mg tablet Take 1,000 mg by mouth twice daily wi th meals. metoprolol XL (TOPROL XL) 50 mg extended release tablet Take 50 mg by mouth twice daily. pantoprazole DR (PROTONIX) 40 mg tablet Take 40 mg by mouth daily. ticagrelor (BRILINTA) 90 mg Take 90 mg by mouth twice daily. documented in this encounter Procedure Notes * Linden Castro MD - 10/08/2018 2:51 PM CDT Associated Order(s): CARDIAC CATH REPORT [facility] CARDIAC CATHETERIZATION REPORT Page 2 DACIA Arambula : 1980 #: [id number] LUKAS MR #/Billing ID #: [id number] / [id number] DATE: 10/08/2018 BRUSH AND BROOM CLIPPER: Linden Castro MD DICTATING PROVIDER: Linden Castro MD REFERRING PHYSICIAN: BRI THOMAS PROCEDURES PERFORMED: 1. Coronary angiography. 2. Left heart catheterization. 3. iFR, instantaneous continuous wave free ratio, of the distal right coronary a rtery. INDICATIONS: This is a 38-year-old patient with severe diabetes mellitus and un derlying coronary artery disease who has had multiple interventions at an [facility] institution and came for a 2nd opinion complaining of significant chest discom fort with any activity. She also has chest discomfort at rest. CONSENT: The patient was consented in the holding area prior to being brought t o the cardiac catheterization laboratory. Risks of the procedure were discussed and included, but were not limited to the risk of stroke, myocardial infarction , . PROCEDURE DETAILS: The right groin was prepped and draped in the usual fashion at the patient's request. A 6-Salvadorean sheath was placed in anticipation of possi ble interrogation with a fractional flow or iFR wire. Angiography was performed after placing a pigtail in the left ventricle for hemodynamic monitoring. We u sed a JL4 for multiple images of the left coronary. A JR4 was used for right co ronary. At the completion of the diagnostic procedure, we elected to proceed wi iFR of the right coronary artery. The patient was heparinized. Nitroglyceri n was given through the coronary and an iFR wire was zeroed and advanced into th e guide. However, it did not stay normalized, so we got a 2nd wire and this was successful in stabilizing, normalizing and crossing the lesion. iFR was 0.96 a nd therefore no intervention was performed. FINDINGS: HEMODYNAMICS: 1. Aortic pressure 164/97, mean 126 mmHg. 2. The left ventricular pressure 152/EDP 8 mmHg. ANATOMY: 1. LEFT MAIN: The left main coronary arose from left coronary cusp. It has a s tent in the distal portion. It has no significant stenosis. There is a 30% ost ial narrowing. It bifurcates into the left anterior descending and circumflex. 2. LEFT ANTERIOR DESCENDING: This artery has a stent extending from the ostium to the midportion. There is no significant in-stent restenosis. It supplies a diagonal in its midportion across the stented portion that may have some ostial narrowing. However, this is a very small caliber vessel. Smaller than 1.5 in d iameter. 3. CIRCUMFLEX: Circumflex has an ostial 50% stenosis. The circumflex supplies a very high 1st obtuse marginal which has a 70% to 80% stenosis, but would requir e very complex intervention involving the left main obtuse marginal and circumfl ex. It is also not a large vessel. The continuation of the circumflex has 20% to 30% irregularities followed by a terminal obtuse marginal which is free of an y significant disease. 4. RIGHT CORONARY ARTERY: The right coronary artery is dominant. It arises fro m right coronary cusp. It has a proximal 20% narrowing. In its midportion it h as 10% irregularities, then distally it appears to have a 50% to 60% stenosis. It then supplies posterior descending and 2 posterolateral arteries, all of whic h appear to be free of disease. 5. As mentioned, iFR of the distal right coronary artery was 0.96, so no interve ntion was performed. CONTRAST: Visipaque-320 68 mL. MEDICATIONS: Lidocaine 20 mL, fentanyl 100 mcg, heparin 7000 units in divided d oses, nitroglycerin 200 mcg, Versed 2 mg. Total physician sedation time was 26 minutes. FLUOROSCOPY TIME: 6 minutes with air kerma of 381 mGy. CONCLUSIONS: 1. Coronary artery disease with previous stented left main extending into the mi d LAD without significant in-stent restenosis. 2. Stenosis of the 1st obtuse marginal in the range of 70% to 80%, but small eduardo iber and I would not recommend intervention. 3. Ostial 50% stenosis of the circumflex. 4. 50% to 60% distal right coronary stenosis with a normal iFR. RECOMMENDATIONS: Medical management and aggressive treatment of diabetes which appears to be poorly controlled. MD MIKEY Seth/Barbara /[id number] P cc: - BRI THOMAS documented in this encounter Miscellaneous Notes * Case Mgmt DC Plan - Gail Julio - 10/08/2018 6:51 PM CDT Case Management Progress Note NAME:Dacia Ho : AGE: 38 y.o. ADMISSION DATE: 10/08/2018 DAYS ADMITTED: LOS: 0 days Todays Date: 10/08/2018 Plan Pt to d/c home today. Interventions ? Support ? Info or Referral ? Discharge Planning Pt here for outpatient procedure. SW updated by RN pt does not have transport ho me after patient relations provided gas cards due to concern that nobody could g et here from [place], [place]. MADELINE spoke with floor tiling professional CM artist relationship manager who request f/u with pricing from [employer]. SW updated that online construction job cost estimator cost of cab pass is around $250. [employer] transport trip cost is about $350. SW spoke with pt who states that she anticipates a family member will be able to transport her home tonight. Pt states they are having trouble getting ahold of the person with the car, but her SO is walking to their house. remote mortgage underwriter CM artist relationship manager approved for cab pass through nursing services to be approved if pt family not able to transport home tonight. MADELINE updated RN. RN to check in with SW around nine if pt still does not have family available and SW to approve cab pass through nursing services. CM department anticipate using [facility] funding. ? Medication Needs ? Financial ? Legal ? Other Disposition ? Expected Discharge Date ? Transportation ? Next Level of Care (Acute Psych discharges only) ? Discharge Disposition Durable Medical Equipment No service has been selected for the patient. Destination No service has been selected for the patient. Home Care No service has been selected for the patient. Dialysis/Infusion No service has been selected for the patient. Gail Julio LMSW [phone] * Care Plan - Raghu Virgen - 10/08/2018 1:26 PM CDT Problem: Tobacco Use Goal: Knowledge of tobacco-use cessation methods Outcome: Goal Achieved Date Met: 10/08/18 [facility] CONSULTATION ASSESSMENT/RECOMMENDATIONS Patient was referred for [facility] consultation Tobacco Use Treatment Practical Counseling was provided, including recognizin g danger situations, developing coping skills and providing basic information ab out quitting. MEDICATION RECOMMENDATIONS TO QUIT TOBACCO: In-patient quit-tobacco medication: If acceptable, please provide 2 mg nicot ine lozenge. Discharge medication options: Pt interested in using 2 mg nicotine lozenges w yolette discharged if unable to quit on her own. She will need to wait until she has insurance coverage to obtain. Post discharge support referral: Accepted State Tobacco Quitline [facility] Educational Material: Accepted History of Present Illness Reports using 1 or 2 cigarettes per day. Reports using tobacco after 60 minutes minutes of waking. E-Cigarette or vape use: None Other tobacco use: None Years used: 21 Withdrawal: No nicotine withdrawal based upon the patients rating on the N icotine Withdrawal Behavior Rating Scale. Patient lives with other smokers or vapers Set a quit date: No Plan about smoking after patient leaves the hospital: I plan to try to quit w yolette I leave the hospital Interest in quitting: high Contact Information If I can be of further assistance, please call [employer] [phone] documented in this encounter Plan of Treatment Not on filedocumented as of this encounter Procedures Comments Procedure Name Priority Date/Time Associated [...] to lipid rich plaque Dyspnea on exertion documented in this encounter Results * POC GLUCOSE (10/08/2018 4:30 PM CDT) Glucose, POC 204 (H) 70 - 100 MG/DL MAIN LAB Specimen Performing Organization Address City/State/Zipcode Phone Number MAIN LAB [address] [place] [address] * CARDIAC CATH REPORT (10/08/2018 2:51 PM CDT) Procedure Note Linden Castro MD - 10/08/2018 2:51 PM CDT [facility] CARDIAC CATHETERIZATION REPORT Page 2 DACIA Arambula : 1980 #: [id number] LUKAS MR #/Billing ID #: [id number] / [id number] DATE: 10/08/2018 BRUSH AND BROOM CLIPPER: Linden Castro MD DICTATING PROVIDER: Linden Castro MD REFERRING PHYSICIAN: BRI THOMAS PROCEDURES [...] usual fashion at the patient's request. A 6-Salvadorean sheath was placed in anticipation of possible [...] diabetes which appears to be poorly controlled. Linden Castro MD [facility]/Barbara /[id number] P cc: - BRI THOMAS Performing Organization Address [facility] Phone Number OTHER OUTSIDE LAB * POC ACTIVATED CLOTTING TIME (10/08/2018 2:37 PM CDT) Activated 208 s MAIN LAB Clotting Time Specimen Performing Organization Address [facility] Phone Number MAIN LAB [address] [place] [address] * POC ACTIVATED CLOTTING TIME (10/08/2018 2:27 PM CDT) Activated 197 s MAIN LAB Clotting Time Specimen Performing Organization [facility] Phone Number MAIN LAB [address] [place] [phone] * TEST-URINE (10/08/2018 11:40 AM CDT) Urine-HCG NEG [facility] MAIN LAB Samples with Specific [place] <1.010 may result in a false negative test Specific 1.045 MAIN LAB [place] Specimen Urine - Urine Performing Organization [facility] Phone Number MAIN LAB [address] [place] [address] * POC GLUCOSE (10/08/2018 11:16 AM CDT) Glucose, POC 268 (H) 70 - 100 MG/DL MAIN LAB Specimen Performing Organization [facility] Phone Number MAIN LAB [address] [place] [address] documented in this encounter Visit Diagnoses Diagnosis Angina pectoris (HCC) Other and unspecified angina pectoris Coronary artery disease due to lipid rich plaque Dyspnea on exertion Other dyspnea and respiratory abnormality documented in this encounter Administered Medications Action Date Dose Rate Site Medication Order MAR Action 10/08/2018 7:32 PM CDT 650 mg acetaminophen (TYLENOL) tablet 650 mg Given 650 mg, Oral, EVERY 4 HOURS PRN, Starting Sun10/08/18 at 1056, Until Sun10/08/18 at 2330, Pain non-opioid: may be used alone or in combination with opioid analgesia, TOTAL ACETAMINOPHEN DOSE NOT TO EXCEED 4GM DAILY, Pre-Op aluminum/magnesium hydroxide (MAALOX) oral suspension 30 mL 30 mL, Oral, EVERY 4 HOURS PRN, Starting Sun10/08/18 at 1056, Until Sun10/08/18 at 2330, Indigestion/Heartburn, Pre-Op 10/08/2018 11:49 AM CDT 324 mg aspirin chewable tablet 324 mg Given 324 mg, Oral, ONCE, 1 dose, Sun10/08/18 at 1100, Give STAT prior to CV procedure., Pre-Op 10/08/2018 7:32 PM CDT 80 mg atorvastatin (LIPITOR) tablet 80 mg Given 80 mg, Oral, DAILY, First dose on Sun10/08/18 at 1845, Until Discontinued, Admission/Obs/Extended Recovery 10/08/2018 3:46 PM CDT 75 mg clopiDOGrel (PLAVIX) tablet 75 mg Given 75 mg, Oral, ONCE, 1 dose, Sun10/08/18 at 1530, This Medication can increase the risk of bleeding and may need to be held prior to surgery or invasive procedures. Consult physician in advance., diphenhydrAMINE (BENADRYL) capsule 25 mg 25 mg, Oral, EVERY 4 HOURS PRN, Starting Sun10/08/18 at 1452, Until Sun10/08/18 at 2330, Rash diphenhydrAMINE (BENADRYL) injection 25 mg 25 mg, Intravenous, EVERY 4 HOURS PRN, Starting Sun10/08/18 at 1452, Until Sun10/08/18 at 2330, Rash 10/08/2018 7:32 PM CDT 800 mg gabapentin (NEURONTIN) capsule 800 mg Given 800 mg, Oral, FOUR TIMES DAILY, First dose on Sun10/08/18 at 1845, Until Discontinued, Admission/Obs/Extended Recovery insulin aspart U-100 (NOVOLOG FLEXPEN) injection PEN 0-12 Units 0-12 Units, Subcutaneous, BEFORE MEALS AND 2200, First dose on Sun10/08/18 at 1700, Until Discontinued, -POC glucose 181-220mg/dL at 07, 11, 17 administer 2 units insulin, at , * administer 0 units. -POC glucose 221-260mg/dL at administer 4 units insulin, at , * administer 2 units. -POC glucose 261-300mg/dL at administer 6 units insulin, at , * administer 4 units. -POC glucose 301-350mg/dL at administer 8 units insulin, at , * administer 6 units. -POC glucose 351-400mg/dL at administer 10 units insulin, at , * administer 8 units. -POC glucose >400mg/dL at administer 12 units insulin, at * administer 10 units. *only if ordered 5x's daily For POCT glucose >350mg/dL give correction bolus and recheck POCT glucose in 2 hours. If POCT glucose at 2 hours >300mg/dL call physician for further orders. For patients who are not eating meals, continue to administer the appropriate correction factor. NOTE: This is a HIGH ALERT Medication., Dispense pens manually with initial order and then upon request. DO NOT uncheck "Do not dispense", milk of magnesia (CONC) oral suspension 10 mL 10 mL, Oral, EVERY 6 HOURS PRN, Starting Sun10/08/18 at 1056, Until Sun10/08/18 at 2330, Constipation PO, 10 mL CONC=30 mL MOM., Pre-Op ondansetron (ZOFRAN) injection 4 mg 4 mg, Intravenous, EVERY 6 HOURS PRN, Starting Sun10/08/18 at 1452, Until Sun10/08/18 at 2330, Nausea/Vomiting Injectable 10/08/2018 11:52 AM CDT 50 mL/hr sodium chloride 0.9 % infusion Given - New 1,000 mL, Intravenous, at 100 mL/hr, Bag CONTINUOUS, Starting Sun10/08/18 at 1200, Until Sun10/08/18 at 2330, Max of 1,000 mL, 10/08/2018 11:55 AM CDT 250 mL/hr sodium chloride 0.9 % infusion Dose/Rate 250 mL, 250 mL, Intravenous, at 250 Change mL/hr, ONCE, 1 dose, Sun10/08/18 at 1200 SODIUM CHLORIDE 0.9 % IV SOLP (Cabinet Override) NOW, 1 dose, 10/08/18 at 0815, Created by cabinet override, Created by cabinet override, documented in this encounter
--- OUTSIDE RECORDS SUMMARY | 2018-10-18 02:36 | XMS REPORT | Encounter Summary ---
Author Author [facility] Organization [facility] Address Unknown Phone Unavailable Care Team Providers Care Transmission Builder Name Role Phone Leyda Muñoz MD PCP Reason for Visit * Reason Comments Patient Questions Encounter Details Care Team Description Date Type Department Swetha Singh RN Patient Questions 09/26/2018 Telephone [facility] [address] [place] [address] Social History Date Tobacco Use Types Packs/Day Years Used Never Assessed Sex Assigned at Date Recorded Not on file Industry Job Start Date Occupation Not on file Not on file Not on file Travel End Travel History Travel Start No recent travel history available. documented as of this encounter Miscellaneous Notes * Telephone Encounter - Swetha Singh RN - 09/26/2018 2:52 PM CDT Pt's called with concerns that she had some problems with chest pain yes terday and shortness of breath and he called the ambulance who took her to [facility] [place]. He said her enzymes were normal and they gave her some p ain medicine and sent her home. He was also concerned that she continues to hav e slurred speech. 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 I told him since we had n ot seen her yet, he should take her to the ER with immediate concerns, or we wou ld see her as scheduled on Sunday. In the meantime, he could bring her to the [facility] ER if warrented. Her last cath was clouded. I will request hospital records from yesterday. documented in this encounter Plan of Treatment Not on filedocumented as of this encounter Visit Diagnoses Not on filedocumented in this encounter
--- OUTSIDE RECORDS SUMMARY | 2018-10-18 02:36 | XMS REPORT | Encounter Summary ---
Author Author [facility] Organization [facility] Address Unknown Phone Unavailable Care Team Providers Care Steel Floor Pan Placing Supervisor Name Role Phone Leyda Muñoz MD PCP Reason for Visit * Reason Comments New Patient 2nd opinion Encounter Details Care Team Description Date Type Department Swetha Singh RN New Patient (2nd opinion) 09/27/2018 Patient Profile [facility] [address] [place] [address] Social History Date Tobacco Use Types Packs/Day Years Used Never Assessed Sex Assigned at Date Recorded Not on file Industry Job Start Date Occupation Not on file Not on file Not on file Travel End Travel History Travel Start No recent travel history available. documented as of this encounter Plan of Treatment Not on filedocumented as of this encounter Visit Diagnoses Diagnosis Coronary artery disease due to lipid rich plaque Myocardial infarction, unspecified IN type, unspecified artery (HCC) Abdullahi's palsy documented in this encounter
--- OUTSIDE RECORDS SUMMARY | 2018-10-18 02:36 | XMS REPORT | Encounter Summary ---
Author Author [facility] Organization [facility] Address Unknown Phone Unavailable Care Team Providers Care Reinforcing Metal Worker Name Role Phone Leyda Muñoz MD PCP Encounter Details Care Team Description Date Type Department Franklyn Castro MD [address] [address] [phone] 09/30/2018 Hospital [facility] [address] [address] Social History Date Tobacco Use Types Packs/Day [...] history available. documented as of this encounter Medications at Time of Discharge [...] 0 (PROTONIX) 40 mg tablet mouth daily. 10/08/2018 metFORMIN (GLUCOPHAGE) Take 1,000 mg 0 1,000 mg tablet by mouth twice daily with meals. 10/08/2018 ticagrelor (BRILINTA) 90 Take 90 mg by 0 mg mouth twice daily. documented as of this encounter Plan of Treatment Not on filedocumented as of this encounter Procedures Comments Procedure Name Priority Date/Time Associated Diagnosis CBC Routine 09/30/2018 Coronary artery disease 3:28 PM CDT due to lipid rich plaque Pre-procedure lab exam BASIC METABOLIC PANEL Routine 09/30/2018 Coronary artery disease 3:28 PM CDT due to lipid rich plaque Pre-procedure lab exam documented in this encounter Results * CBC (09/30/2018 3:28 PM CDT) White Blood 9.6 4.5 - 11.0 K/UL [...] MAIN LAB Specimen Blood Performing Organization Address City/[facility]/Zipcode Phone Number [facility] [address] [place] [address] * BASIC METABOLIC PANEL (09/30/2018 3:28 PM CDT) Sodium 132 (L) 137 - 147 MMOL/L [...] >60 >60 mL/min [facility]IN [facility] Comment: [place] The eGFR is not validated for use in drug dosing adjustments.Continue to use estimated creatinine clearance per dosing reference text.Please contact the Clinical Pharmacist for questions. eGFR >60 >60 mL/min [facility] [place] Comment: The eGFR is not validated for use in drug dosing adjustments.Continue to use estimated creatinine clearance per dosing reference text.Please contact the Clinical Pharmacist for questions. Specimen Blood Performing Organization Address City/[facility]/Zipcode Phone Number [facility] [address] [place] [address] documented in this encounter Visit Diagnoses Diagnosis Coronary artery disease due to lipid rich plaque Pre-procedure lab exam Pre-procedural laboratory examination documented in this encounter
--- OUTSIDE RECORDS SUMMARY | 2018-10-18 02:36 | XMS REPORT | Encounter Summary ---
Author Author [facility] Organization [facility] Address Unknown Phone Unavailable Care Team Providers Care Food Product Inspector Name Role Phone Lyeda Muñoz MD PCP Reason for Visit * Reason Comments Precertification NO Current INS. Encounter Details Care Team Description Date Type Department Rupa Rodriguez Precertification (NO Current INS.) 10/02/2018 Documentation [facility] [address] [facility] [place] [address] Social History Date Tobacco Use Types Packs/Day [...] history available. documented as of this encounter Progress Notes * Rupa Rodriguez - 10/02/2018 3:07 PM CDT 10-01 Called [facility] [place] [phone] spoke with Maru REF# [id number] guero franks Insurance Termed 04-22-2018, called twice Information was emailed to [facility] [employer]. documented in this encounter Plan of Treatment Not on filedocumented as of this encounter Visit Diagnoses Not on filedocumented in this encounter
--- OUTSIDE RECORDS SUMMARY | 2018-10-18 02:36 | XMS REPORT | Encounter Summary ---
Author Author [facility] Organization [facility] Address Unknown Phone Unavailable Care Team Providers Care Microsoft Dynamics Ax Developer Name Role Phone Leyda Muñoz MD PCP Encounter Details Care Team Description Date Type Department Yarely Omer MD [address] [place] [address] 10/07/2018 Orders Only XDD INT MED [facility] Level 4B [address] [place], [place] [id number] Social History Date Tobacco Use Types Packs/Day [...]
--- OUTSIDE RECORDS SUMMARY | 2018-10-18 02:36 | XMS REPORT | Encounter Summary ---
Author Author [facility] Organization [facility] Address Unknown Phone Unavailable Care Team Providers Care Grades 1 6 Tutor Name Role Phone Leyda Muñoz MD PCP Reason for Visit * Reason Comments Records Request Via [employer] Encounter Details Care Team Description Date Type Department Swetha Sinhg RN Records Request ([employer] [employer]) 09/26/2018 Documentation [facility] [address] [place] [address] Social History Date Tobacco Use Types Packs/Day Years Used Never Assessed Sex Assigned at Date Recorded Not on file Industry Job Start Date Occupation Not on file Not on file Not on file Travel End Travel History Travel Start No recent travel history available. documented as of this encounter Progress Notes * Swetha Singh RN - 09/26/2018 3:00 PM CDT Please fax the following records for this patient for continuation of care purpo ses to: [phone] Attn: Dr. Castro/Swetha : 1980 Please send most recent hospital H&P and Discharge summary. *Patient was just seen in the ER at [place] yesterday 09/25/2018 Thank You documented in this encounter Plan of Treatment Not on filedocumented as of this encounter Visit Diagnoses Not on filedocumented in this encounter
--- OUTSIDE RECORDS SUMMARY | 2018-10-18 02:36 | XMS REPORT | Encounter Summary ---
Author Author [facility] Organization [facility] Address Unknown Phone Unavailable Care Team Providers Care Steel Cutter Name Role Phone Leyda Muñoz MD PCP Reason for Referral * Consult, Test & Treat (Routine) Referred By Contact Referred To Contact Status Reason Specialty Diagnoses / Procedures Franklyn Castro MD [address] [place] [address] [facility] [address] [place] [address] No Auth Needed Specialty Services Neurology Diagnoses Required Abdullahi's palsy Scheduling Instructions Contact Phone Numbers for each area if questions arise: General: [phone] Epilepsy: 52 Multiple Sclerosis: 72 Parkinson's: [phone] [facility]: Stroke & Neuromuscular: [place]: [phone] * Consult, Test & Treat (Routine) Referred By Contact Referred To Contact Status Reason Specialty Diagnoses / Procedures Franklyn Castro MD [address] [place] [address] [facility] [address] [place] [address] Closed Specialty Services Endocrinology, Diagnoses Required Diabetes & Type 1 diabetes Metabolism / mellitus with Diabetes other circulatory Services complication (HCC) Reason for Visit * Reason Comments New Patient Encounter Details Care Team Description [place] [address] [facility] Med [place] [address]A [address] [place] [address] [phone] Franklyn Castro MD [address] [facility] [place] [address] [phone] New Patient 09/30/2018 Office Visit The [facility] [address] [facility] [place] [address] Social History Date Tobacco Use Types Packs/Day [...] Signs Reading Time Taken Comments Vital Sign 132/72 09/30/2018 2:19 PM CDT Blood Pressure 123 09/30/2018 2:19 PM CDT Pulse - - Temperature - - Respiratory Rate 98% 09/30/2018 2:19 PM CDT Oxygen Saturation - - Inhaled Oxygen Concentration 69.9 kg (154 lb) 09/30/2018 2:19 PM CDT Weight 157.5 cm (5' 2") 09/30/2018 2:19 PM CDT Height 28.17 09/30/2018 2:19 PM CDT Body Mass Index documented in this encounter Patient Instructions * Patient Instructions* Swetha Singh RN - 09/30/2018 2:00 PM CDT Start plavix 300mg first dose and then 75mg daily documented in this encounter Progress Notes * Franklyn Castro MD - 09/30/2018 2:00 PM CDT Date of Service: 09/30/2018 Dacia Ho is [...] and LAD and she was referred to [facility] for surgical evaluation but surgery decl ined [...] severe chest pain, and has been to [place] with symptoms three harlan es. The majority [...] Coronary angiography and PCI 2018 at via [facility]- Prox and mid LAD AIDA x 2. 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 Assessment and Plan 1. Coronary artery disease. She has significant chest discomfort as I mentioned below. However her symptoms are not entirely consistent with angina. She seems to always have chest pain. She may be suffering from a different kind of chest pain syndrome. However, her ECG is significantly [...] 1,000 mg by mouth twice daily wi meals. metoprolol XL (TOPROL XL) 50 mg extended release tablet Take 50 mg by mouth twice daily. pantoprazole DR (PROTONIX) 40 mg tablet Take 40 mg by mouth daily. ticagrelor (BRILINTA) 90 mg Take 90 mg by mouth twice daily. documented in this encounter Plan of Treatment Order Schedule Name Type Priority Associated Diagnoses Ordered: 09/30/2018 AMB REFERRAL TO Outpatient Routine Type 1 diabetes mellitus ENDOCRINOLOGY Referral with other circulatory complication (HCC) Ordered: 09/30/2018 AMB REFERRAL TO NEUROLOGY Outpatient Routine Abdullahi's palsy Referral documented as of this encounter Procedures Comments Procedure Name Priority Date/Time Associated Diagnosis ECG-SCAN 09/30/2018 12:00 AM CDT documented in this encounter Results * ECG-SCAN (09/30/2018 12:00 AM CDT) Narrative Performed At Ordered by an unspecified provider. 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
--- OUTSIDE RECORDS SUMMARY | 2018-10-18 02:36 | XMS REPORT | Encounter Summary ---
Author Author [facility] Organization [facility] Address Unknown Phone Unavailable Care Team Providers Care Green Chain Marker Name Role Phone Leyda Muñoz MD PCP Encounter Details Care Team Description Date Type Department Swetha Singh RN Angina pectoris (HCC) (Primary Dx); Coronary artery disease due to lipid rich plaque; Dyspnea on exertion 09/30/2018 Prep for Case The [facility] [address] [facility] [place] [address] Social History Date Tobacco Use Types Packs/Day [...] as of this encounter Visit Diagnoses Diagnosis Angina pectoris (HCC) - Primary Other and unspecified angina pectoris Coronary artery disease due to lipid rich plaque Dyspnea on exertion Other dyspnea and respiratory abnormality documented in this encounter
--- OUTSIDE RECORDS SUMMARY | 2018-10-18 02:36 | XMS REPORT | Encounter Summary ---
Author Author [facility] Organization [facility] Address Unknown Phone Unavailable Care Team Providers Care Case Work Aide Name Role Phone Leyda Muñoz MD PCP Reason for Visit * Reason Comments Records Request Encounter Details Care Team Description Date Type Department Sarina Resendiz Records Request 09/06/[address] Tele[address] [address] Social History Date Tobacco Use Types Packs/Day Years Used Never Assessed Sex Assigned at Date Recorded Not on file Industry Job Start Date Occupation Not on file Not on file Not on file Travel End Travel History Travel Start No recent travel history available. documented as of this encounter Miscellaneous Notes * Telephone Encounter - Sarina Resendiz - 09/06/2018 9:36 AM CDT On 09/06/18 Medical records received records from [facility], they have been se nt to the [employer] for the 09/19/18 appt. Thank you. documented in this encounter Plan of Treatment Not on filedocumented as of this encounter Visit Diagnoses Not on filedocumented in this encounter
--- OUTSIDE RECORDS SUMMARY | 2018-10-18 02:36 | XMS REPORT | Encounter Summary ---
Author Author [facility] Organization [facility] Address Unknown Phone Unavailable Care Team Providers Care Commercial Sheet Metal Foreman Name Role Phone Bri Thomas MD PCP [...] Date Type Department Linden Castro MD [address] [facility] [place] [address] [phone] Coronary artery disease due to lipid rich plaque 10/08/2018 [facility] [address] [place] [address] Social History Date Tobacco Use Types Packs/Day [...] [facility]- angiography only Cardiac cath 9 at [place]- Distal Left main-LAD stenting AIDA with kissing [...] will follow up with her doctors in [place] for ongoing Cardiology care. Condition at Discharge: Stable; right groin D/I, without evidence of hematoma, b leeding, or bruit. Distal pulses intact. Pt was ambulatory in the halls without complaint prior to discharge. BP (!) 131/98 Comment: Simultaneous filing. User m ay not have seen previous data. | Pulse 91 Comment: Simultaneous filing. User ma y not have seen previous data. | [...] HOURS (8:00 AM - 4:30 PM): Call [phone] and asked to be transferred to your discharge attending jos lebron. - AFTER BUSINESS HOURS (4:30 PM - 8:00 AM, on weekends, or holidays): Call [phone] and ask the sandwich and drink cart operator to page the on-call doctor for the discha rge attending physician. Discharging attending physician: LINDEN CASTRO [[id number]] Cardiac Diet Limiting unhealthy fats and cholesterol [...] you can call a dietitia n at [phone]. Incision Care *Call if there is an increase in pain, swelling, or redness. *DO NOT soak incision in water. *NO tub baths, hot tubs, or swimming. *You may shower after discharge. Return Appointment Please follow up with your primary pooling operator in [place] Outside Provider Follow up with primary cardiology in [place] Current Discharge Medication List CONTINUE these medications [...] CDT New Patient with Kalyn Padilla MD [facility] (Neurology) [address] [place] [phone] Signed: Vanessa Hull APRN 10/11/2018 cc: Primary [...] to speak with someone? During Business Hours: [facility] Cardiology Office at the [facility]: [phone] (Sunday-Sunday) [place]: [phone] (Sunday-Sunday) [place]: [phone] (Sunday-Sunday) [place]: [phone] (Sunday and ) [place]: [phone] (Sunday-Sunday) [place]: [phone] (Sunday-Sunday) [place]: [phone] (Sunday-) [facility]: [phone] (Sunday, Sunday and Sunday) [place]: [phone] (Sunday, Sunday and Sunday) [place] ([place]): [phone] (Sunday, Sunday and Sunday) Nights and Weekends [facility] Cardiology Office at the [facility]: [phone] This education is meant to serve as a resource to you and your family. It is not meant to be all inclusive. The members of the [employer] and Ashlyn [facility] at [facility] Cardiology, , will be glad to [...] and he is 2 hours away in [place]. Upon contacting him, we orlando d several discussions and he stated he was concerned that she still had pain and since they did not stent, that he thought it wasn't resolved and would not come to pick her up. I involved the charge nurse Dioni and we both discussed with the "[id number]" that is here with the patient and boyfriend, Angel, on the phone that they w ere going to follow up with neurology in the outpatient setting and that her C was negative, and we discharge the same [...] in the area. I update d my net lead developerHUY Wheatley of this. Will continue to monitor. [...] recent H/P below. Vanessa Hull APRN-Marci Pager [phone] Office Visit 09/30/2018 [facility] Linden Castro MD Cardiovascular Disease Myocardial infarction, unspecified [place] type, unspecified artery (HCC) +3 more Dx [...] and LAD and she was referred to [facility] for surgical evaluation but surgery [...] severe chest pain, and has been to [place] with symptoms three harlan es. 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 Assessment [...] CARDIAC CATH REPORT [facility] at [facility] CARDIAC CATHETERIZATION REPORT Page 2 DACIA Arambula : 1980 #: [id number] LUKAS MR #/Billing ID #: [id number] / [id number] DATE: 10/08/2018 EQUIPMENT SERVICE ASSOCIATE: Linden Castro MD DICTATING PROVIDER: Linden Castro MD REFERRING PHYSICIAN: BRI THOMAS PROCEDURES PERFORMED: 1. Coronary angiography. 2. Left heart catheterization. 3. iFR, instantaneous continuous wave free ratio, of the distal right coronary a rtery. INDICATIONS: This is a 38-year-old patient with severe diabetes mellitus and un derlying coronary artery disease who has had multiple interventions at an [facility] institution and came for a 2nd opinion [...] usual fashion at the patient's request. A 6-Trinidadian sheath was placed in anticipation of possi ble interrogation with a fractional flow or iFR wire. Angiography was performed after placing a pigtail in the left ventricle for hemodynamic monitoring. We u sed a JL4 for multiple images of the left coronary. A JR4 was used for right co ronary. At the completion of the diagnostic procedure, we elected to proceed wi th iFR of the right coronary artery. The [...] to be poorly controlled. MD MIKEY Seth/Barbara /[id number] P cc: - BRI THOMAS documented in [...] that nobody could g et here from [place], [place]. MADELINE spoke with mainframe applications developer CM health spa manager who request f/u with pricing from [employer]. SW updated that online job cost estimator cost of cab pass is around $250. [employer] transport trip cost is about $350. SW spoke with pt who states that she anticipates a family member will be able to transport her home tonight. Pt states they are having trouble getting ahold of the person with the car, but her SO is walking to their house. call center nurse CM health spa manager approved for cab pass through nursing services to be approved if pt family not able to transport home tonight. MADELINE updated RN. RN to check in with SW around nine if pt still does not have family available and SW to approve cab pass through nursing services. CM department anticipate using [facility] funding. ? Medication Needs ? Financial ? Legal ? Other Disposition ? Expected Discharge Date ? Transportation ? Next Level of Care (Acute Psych discharges only) ? Discharge Disposition Durable Medical Equipment No service has been selected for the patient. [facility] Destination No service has been selected for the patient. Home Care No service has been selected for the patient. Dialysis/Infusion No service has been selected for the patient. Gail Julio LMSW [phone] * Care Plan - Raghu Virgen - 10/08/2018 1:26 PM CDT Problem: Tobacco Use Goal: Knowledge of tobacco-use cessation methods Outcome: Goal Achieved Date Met: 10/08/18 [employer] CONSULTATION ASSESSMENT/RECOMMENDATIONS Patient was referred for [facility] consultation Tobacco Use Treatment Practical Counseling was provided, including recognizin g danger situations, developing coping skills and providing basic information ab out quitting. MEDICATION RECOMMENDATIONS TO QUIT TOBACCO: In-patient quit-tobacco medication: If acceptable, please provide 2 mg nicot ine lozenge. Discharge medication options: Pt interested in using 2 mg nicotine lozenges w hen discharged if unable to quit on her own. She will need to wait until she has insurance coverage to obtain. Post discharge support referral: Accepted State Tobacco Quitline [facility] Educational Material: Accepted History of Present Illness [...] can be of further assistance, please call [employer] [phone] documented in this encounter Plan of Treatment [...] Organization Address City/State/Zipcode Phone Number MAIN LAB [address] [place] [address] * CARDIAC CATH REPORT (10/08/2018 2:51 PM CDT) Procedure Note Linden Castro MD - 10/08/2018 2:51 PM CDT [facility] Cardiology at The [facility] CARDIAC CATHETERIZATION REPORT Page 2 DACIA Arambula : 1980 #: [id number] MR #/Billing ID #: [id number] / [id number] DATE: 10/08/2018 EQUIPMENT SERVICE ASSOCIATE: Linden Castro MD DICTATING PROVIDER: Linden Castro [...] usual fashion at the patient's request. A 6-Trinidadian sheath was placed in anticipation of possible [...] to be poorly controlled. Linden Castro MD [facility]/Barbara /[id number] P cc: - BRI THOMAS Performing Organization Address [facility] Phone Number OTHER OUTSIDE LAB * POC ACTIVATED CLOTTING TIME (10/08/2018 2:37 PM CDT) Activated 208 s MAIN LAB Clotting Time Specimen Performing Organization Address [facility] Phone Number MAIN LAB [address] [place] [address] * POC ACTIVATED CLOTTING TIME (10/08/2018 2:27 PM CDT) Activated 197 s MAIN LAB Clotting Time Specimen Performing Organization [facility] Phone Number MAIN LAB [address] [place] [phone] * TEST-URINE (10/08/2018 11:40 AM CDT) Pathologist [facility] Urine-HCG NEG [facility] MAIN LAB Samples with Specific [place] <1.010 may result in a false negative test Specific 1.045 MAIN LAB [place] Specimen Urine - Urine Performing Organization [facility] Phone Number MAIN LAB [address] [place] [address] * POC GLUCOSE (10/08/2018 11:16 AM CDT) Glucose, POC 268 (H) 70 - 100 MG/DL MAIN LAB Specimen Performing Organization [facility] Phone Number MAIN LAB [address] [place] [address] documented in this encounter Visit Diagnoses Diagnosis [...]
--- OUTSIDE RECORDS SUMMARY | 2018-10-18 02:36 | XMS REPORT | Encounter Summary ---
Author Author [facility] Organization [facility] Address Unknown Phone Unavailable Care Team Providers Care Dehairer Name Role Phone Leyda Muñoz MD PCP Encounter Details Care Team Description Date Type Department Vanessa Hull, SUPERVISOR CELL ROOM [address] [facility] [address] [place] [address] [phone] Coronary artery disease due to lipid rich plaque (Primary Dx) 10/04/2018 Pre-Admit XDD CARDIOLOGY Orders Only Social History Date Tobacco Use Types Packs/Day [...] artery disease due to lipid rich plaque - Primary documented in this encounter
--- OUTSIDE RECORDS SUMMARY | 2018-10-18 02:36 | XMS REPORT | Encounter Summary ---
Author Author [facility] Organization [facility] Address Unknown Phone Unavailable Care Team Providers Care Fig Bar Machine Operator Name Role Phone Leyda Muñoz MD PCP Encounter Details Care Team Description Date Type Department Leslie tSephenson 09/02/2018 Telephone The [address] [address] Social History Date Tobacco Use Types Packs/Day Years Used Never Assessed Sex Assigned at Date Recorded Not on file Industry Job Start Date Occupation Not on file Not on file Not on file Travel End Travel History Travel Start No recent travel history available. documented as of this encounter Miscellaneous Notes * Telephone Encounter - Leslie Stephenson - 09/02/2018 2:00 PM CDT Requests faxed to [facility], [facility] & Dr Leyda Muñoz, requested records be faxed to [facility], chart noted, clp ----- Message from Jaclyn Sommers sent at 09/02/2018 12:36 PM CDT ----- Regarding: request records Pt scheduled for 09/19 w/DJW 2nd opinion, secluded LAD, request records from PCP Dr. Leyda Muñoz [phone]; , [facility] and [facility] documented in this encounter Plan of Treatment Not on filedocumented as of this encounter Visit Diagnoses Not on filedocumented in this encounter
--- OUTSIDE RECORDS SUMMARY | 2018-10-18 02:37 | XMS REPORT ---
Author Author BRI THOMAS [facility] Address [address] [place] [address] Care Team Providers Care Welfare Worker Name Role Phone BRI THOMAS Unavailable PROBLEMS Type Condition ICD9-CM Code UCH57-GZ Code Onset Dates Condition Status SNOMED Code Problem Chest pain, unspecified type R07.9 Active 71973030 Problem Type 2 diabetes mellitus with diabetic polyneuropathy E11.42 Active 40314142 Problem Cigarette smoker F17.210 Active 76540858 Problem Essential hypertension I10 Active 71370286 Problem Coronary artery disease 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, unspecified vessel or lesion type I25.119 Active 23012418 Problem Atherosclerotic heart disease of [place] coronary artery without angina pectoris I25.10 Active 711998219 Problem Moderate episode of recurrent major depressive disorder F33.1 Active 761485677 Problem Elevated BUN R79.9 Active 113538989 Problem Gastroesophageal reflux disease without esophagitis K21.9 Active 208569035 Problem Restless leg syndrome G25.81 Active 67375716 Problem Atherosclerotic heart disease of [place] coronary artery with unstable angina pectoris I25.110 Active [id number] Problem Carpal tunnel syndrome on both sides G56.03 Active 75791653203629196 Problem Type 2 diabetes mellitus with other circulatory complications E11.59 Active 23835352 Problem Coronary artery disease involving [place] coronary artery of [place] heart with angina pectoris I25.119 Active 4163778061012 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 Active 910898151 Problem Facial droop R29.810 Active 44771560 Problem PTSD (post-traumatic stress disorder) F43.10 Active 31827374 Problem PVC (premature ventricular contraction) I49.3 Active 35575975 Problem Hyperlipidemia LDL goal <70 E78.5 Active 44933216 Problem Dysphagia, unspecified type R13.10 Active 26841069 Problem Anxiety F41.9 Active 50575747 Problem Peripheral polyneuropathy G62.9 Active 23881192 Problem Insomnia, unspecified type G47.00 Active 117937602 ALLERGIES No Information ENCOUNTERS Encounter Location Date Diagnosis [facility] [address] [address] Sep, Peripheral polyneuropathy G62.9 ; Type 2 diabetes mellitus with other circulatory complications E11.59 ; Gastroesophageal reflux disease without esophagitis K21.9 and Acquired hypothyroidism E03.9 [facility] [id number] [address] Sep, [address] [address] Sep, [facility] [id number] [address] Sep, [facility] [id number] [place] [address] Sep, [facility] [id number] [place] [address] August, [address] [address] August, Breast pain, left N64.[address] [address] August, Breast pain, left N64.[address] [address] August, Breast pain N64.[address] [address] August, Breast pain, left N64.4 [facility] [id number] [place] [address] August, [address] [address] August, [address] [address] August, GAVE (gastric antral vascular ectasia) K31.819 ; Gastroesophageal reflux disease without esophagitis K21.9 ; Type 2 diabetes mellitus with diabetic polyneuropathy E11.42 ; Peripheral polyneuropathy G62.9 ; Atherosclerotic heart disease of [place] coronary artery with unstable angina pectoris I25.110 and Cigarette smoker F17.210 [facility] [id number] [place] [address] August, [facility] [id number] [place] [address] Jul, Peripheral polyneuropathy G62.9 and GAVE (gastric antral vascular ectasia) K31.819 [facility] [id number] [place] [address] Jul, Anxiety F41.9 [facility] [address] [address] Jun, Type 2 diabetes mellitus with diabetic polyneuropathy E11.42 ; 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 ; Essential hypertension I10 ; Chest pain, unspecified type R07.9 ; Dysphagia, unspecified type R13.10 ; Facial droop R29.810 and Moderate episode of recurrent major depressive disorder F33.1 [facility] [address] [address] Jun, PTSD (post-traumatic stress disorder) F43.10 and Moderate episode of recurrent major depressive disorder F33.1 [facility] [id number] [place] [address] Jun, [facility] [id number] [place] [address] Jun, [facility] [id number] [place] [address] Jun, Type 2 diabetes mellitus with diabetic polyneuropathy E11.42 [facility] [id number] [place] [address] Jun, Facial droop R29.810 ; Dysphagia, unspecified type R13.10 and Gastroesophageal reflux disease without esophagitis K21.9 [facility] [id number] [place] [address] Jun, Type 2 diabetes mellitus with diabetic polyneuropathy E11.42 [facility] [id number] [place] [address] Jun, [facility] [id number] [place] [address] May, [facility] [id number] [place] [address] May, Type 2 diabetes mellitus with diabetic polyneuropathy E11.42 ; Type 2 diabetes mellitus with other circulatory complications E11.59 ; Coronary artery disease 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, unspecified vessel or lesion type I25.119 ; Atherosclerotic heart disease of [place] coronary artery with unstable angina pectoris I25.110 ; Insomnia, unspecified type G47.00 ; GAVE (gastric antral vascular ectasia) K31.819 ; 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 ; Peripheral polyneuropathy G62.9 and Anxiety F41.9 [facility] [id number] [place] [address] May, [facility] [id number] [place] [address] May, [facility] [id number] [place] [address] May, [facility] [id number] [place] [address] May, Type 2 diabetes mellitus with diabetic polyneuropathy E11.42 [facility] [id number] [place] [address] Apr, Type 2 diabetes mellitus with diabetic polyneuropathy E11.42 [facility] [id number] [place] [address] Apr, Type 2 diabetes mellitus with diabetic polyneuropathy E11.42 ; assisted current use of insulin Z79.4 ; Essential hypertension I10 and Dysarthria R47.1 [facility] [id number] [place] [address] Apr, [facility] [id number] [place] [address] Apr, PTSD (post-traumatic stress disorder) F43.10 and Moderate episode of recurrent major depressive disorder F33.1 [place] [address] [address] Apr, [facility] [id number] [place] [address] Apr, [facility] [address] [address] Apr, [facility] [address] [address] 08 Apr, 2018 Strep throat J02.0 ; Type 2 diabetes mellitus with diabetic polyneuropathy E11.42 ; 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 ; Esophageal yeast infection B37.81 and Dysphagia, unspecified type R13.10 [facility] [id number] [place] [address] Apr, [facility] [id number] [place] [address] Apr, Hospital discharge follow-up Z09 ; Multiple drug overdose, accidental or unintentional, initial encounter T50.901A ; Anxiety F41.9 ; Peripheral polyneuropathy G62.9 and PTSD (post-traumatic stress disorder) F43.10 [facility] [id number] [place] [address] Apr, [facility] [id number] [place] [address] Mar, [facility] [id number] [place] [address] Mar, Chest pain R07.9 and Anxiety F41.9 [facility] [address] [address] Mar, [facility] [id number] [address] Mar, [facility] [id number] [address] Mar, [facility] [id number] [address] Mar, PTSD (post-traumatic stress disorder) F43.10 [facility] [id number] [place] [address] Mar, Hyperlipidemia LDL goal <70 E78.5 and Coronary artery disease 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, unspecified vessel or lesion type I25.119 [facility] [id number] [address] Mar, [facility] [id number] [place] [address] Feb, Coronary artery disease 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, unspecified vessel or lesion type I25.119 ; Type 2 diabetes mellitus with diabetic polyneuropathy E11.42 and Hospital discharge follow-up Z09 [facility] [id number] [address] Feb, [facility] [id number] [address] Feb, [facility] [id number] [place] [address] Feb, Type 2 diabetes mellitus with diabetic polyneuropathy E11.42 [facility] [id number] [address] Feb, [facility] [id number] [place] [address] Feb, [facility] [id number] [address] Jan, [facility] [id number] [address] Jan, Carpal tunnel syndrome on both sides G56.03 [facility] [id number] [place] [address] Jan, PTSD (post-traumatic stress disorder) F43.10 and Moderate episode of recurrent major depressive disorder F33.1 [facility] [address] [place] [address] Jan, [facility] [id number] [place] [address] Jan, PTSD (post-traumatic stress disorder) F43.10 and Moderate episode of recurrent major depressive disorder F33.1 [facility] [address] [place] [address] Jan, Type 2 diabetes mellitus with diabetic polyneuropathy E11.42 [facility] [id number] [place] [address] Jan, PTSD (post-traumatic stress disorder) F43.10 and Moderate episode of recurrent major depressive disorder F33.1 [facility] [id number] [place] [address] Jan, PTSD (post-traumatic stress disorder) F43.10 and Moderate episode of recurrent major depressive disorder F33.1 [facility] [id number] [place] [address] Jan, [facility] [id number] [address] Jan, Pain of left hand M79.642 and Pain in right hand M79.641 [facility] [id number] [place] [address] Jan, [facility] [id number] [address] Dec, Bilateral hand numbness R20.0 [facility] [id number] [place] [address] 25 Dec, 2017 PTSD (post-traumatic stress disorder) F43.10 and Moderate episode of recurrent major depressive disorder F33.1 [facility] [id number] [place] [address] 24 Dec, 2017 Type 2 diabetes mellitus with diabetic polyneuropathy E11.42 [facility] [id number] [place] [address] Dec, [facility] [id number] [place] [address] Dec, Type 2 diabetes mellitus with diabetic polyneuropathy E11.42 and Atherosclerotic heart disease of [place] coronary artery with unstable angina pectoris I25.110 [facility] [id number] [place] [address] 18 Dec, 2017 Bilateral hand numbness R20.0 [place] [facility] [id number] [place] [address] 18 Dec, 2017 Moderate episode of recurrent major depressive disorder F33.1 ; Type 2 diabetes mellitus with diabetic polyneuropathy E11.42 ; 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 ; Hyperlipidemia LDL goal <70 E78.5 ; Chest pain, unspecified type R07.9 ; Atherosclerotic heart disease of [place] coronary artery without angina pectoris I25.10 ; Cigarette smoker F17.210 ; Gastroesophageal reflux disease without esophagitis K21.9 and Restless leg syndrome G25.81 [facility] [id number] [place] [address] 18 Dec, 2017 PTSD (post-traumatic stress disorder) F43.10 and Moderate episode of recurrent major depressive disorder F33.1 [facility] [id number] [place] [address] 11 Dec, 2017 Moderate episode of recurrent major depressive disorder F33.1 [facility] [id number] [place] [address] Dec, [facility] [id number] [address] Dec, [facility] [id number] [place] [address] Dec, Uncontrolled type 2 diabetes mellitus with hyperglycemia E11.65 and Flatulence/gas pain/belching R14.0 [facility] [id number] [place] [address] Nov, [facility] [id number] [place] [address] Nov, PTSD (post-traumatic stress disorder) F43.10 and Moderate episode of recurrent major depressive disorder F33.1 [facility] [id number] [place] [address] Nov, Chest pain, unspecified type R07.9 ; Coronary artery disease involving [place] coronary artery of [place] heart with angina pectoris I25.119 ; Restless leg syndrome G25.81 ; Hospital discharge follow-up Z09 and Type 2 diabetes mellitus with diabetic polyneuropathy E11.42 [facility] [id number] [place] [address] Nov, Hyperlipidemia LDL goal <70 E78.5 [facility] [id number] [place] [address] 14 Nov, 2017 Hospital discharge follow-up Z09 ; Chest pain, unspecified type R07.9 ; Coronary artery disease involving [place] coronary artery of [place] heart with angina pectoris I25.119 and Gastroesophageal reflux disease without esophagitis K21.9 [facility] [id number] [place] [address] Nov, PTSD (post-traumatic stress disorder) F43.10 and Moderate episode of recurrent major depressive disorder F33.1 [facility] [id number] [place] [address] Oct, Type 2 diabetes mellitus with diabetic polyneuropathy E11.42 [facility] [id number] [place] [address] Oct, Diarrhea, unspecified type R19.7 ; Gastroesophageal reflux disease without esophagitis K21.9 and Vaginal discharge N89.8 [facility] [id number] [place] [address] Oct, Type 2 diabetes mellitus with diabetic polyneuropathy E11.42 [facility] [id number] [place] [address] Oct, Hyperlipidemia LDL goal <70 E78.5 [facility] [id number] [place] [address] Oct, Atherosclerotic heart disease of [place] coronary artery without angina pectoris I25.10 ; Coronary artery disease 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, unspecified vessel or lesion type I25.119 ; Type 2 diabetes mellitus with diabetic polyneuropathy E11.42 ; Hyperlipidemia LDL goal <70 E78.5 ; Cigarette smoker F17.210 and Post-traumatic stress reaction F43.10 [place] [address] [address] Oct, [place] [id number] [place] [address] Oct, Difficulty breathing R06.89 ; Hospital discharge follow-up Z09 and Bilateral lower extremity edema R60.0 [facility] [place] [id number] [place] [address] Oct, [facility] [id number] [place] [address] Oct, Dependent edema R60.9 [place] [id number] [place] [address] Oct, [facility] [id number] [place] [address] Oct, [facility] [place] [id number] [place] [address] Oct, Type 2 diabetes mellitus with diabetic polyneuropathy E11.42 [facility] [address] [address] Oct, [facility] [address] [address] Sep, [facility] [address] [address] August, [facility] [address] [address] Jul, [facility] [address] [address] Jul, Establishing care with new doctor, encounter for Z76.89 ; Type 2 diabetes mellitus with diabetic polyneuropathy E11.42 ; 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 ; Hyperlipidemia LDL goal <70 E78.5 ; Essential hypertension I10 and Chest pain, unspecified type R07.9 [facility] [address] [address] Jul, [facility] [id number] [address] Jul, [facility] [id number] [address] Jun, [facility] [id number] [address] Jun, [facility] [id number] [address] Jun, [facility] [id number] [address] Jun, Acute hyperglycemia R73.9 ; Type 2 diabetes mellitus with diabetic polyneuropathy E11.42 ; assisted current use of insulin Z79.4 ; HTN, goal below 130/80 I10 and Hyperlipidemia LDL goal <70 E78.5 [facility] [id number] [address] August, [facility] [address] [address] August, [facility] [address] [facility] [id number] [address] August, Acute vaginitis N76.0 ; Trichomonas vaginitis A59.01 and Vaginal discharge N89.8 IMMUNIZATIONS No Known Immunizations SOCIAL HISTORY Never Assessed REASON FOR VISIT PALs PLAN OF CARE VITAL SIGNS MEDICATIONS Unknown Medications RESULTS No Results PROCEDURES No Known procedures INSTRUCTIONS MEDICATIONS ADMINISTERED No Known Medications MEDICAL (GENERAL) HISTORY Type Description Date Medical History Type 2 diabetes mellitus with diabetic polyneuropathy Medical History assisted current use of insulin Medical History HTN, goal below 130/80 Medical History Hyperlipidemia LDL goal < 70 Medical History Left Lower Nodule 9mm stable Medical History stents X2 Medical History drug overdose Medical History Neuropathy Surgical History C-Sectionx3 Surgical History Left breast [...] [facility] 02/22/2018 Hospitalization History stents 03/08/2018 Hospitalization History [facility] 09/2018
== END 2018-10-15 17:28 | disposition home or self-care (01) ==
LOC: EDUNIT# 18:05 → ER FS 18:08 → UNDOADMOB 20:33 → 4TH 20:33 → UNDOADMOB 21:50 → SDC 21:50 → 4TH 21:50 → UNDODISOB 10-15 17:28 → SDC 10-15 17:28
PROVIDERS: ATTEND Family Medicine
DX: N61.1 Abscess of the breast and nipple (principal); I25.10 Atherosclerotic heart disease of native coronary artery without angina pectoris; I10 Essential (primary) hypertension; E78.00 Pure hypercholesterolemia, unspecified; E11.43 Type 2 diabetes mellitus with diabetic autonomic (poly)neuropathy; J45.909 Unspecified asthma, uncomplicated; G51.0 Bell's palsy; R74.0 Nonspecific elevation of levels of transaminase and lactic acid dehydrogenase [LDH]; I25.2 Old myocardial infarction; Z79.4 Long term (current) use of insulin; Z79.82 Long term (current) use of aspirin; Z79.899 Other long term (current) drug therapy; Z87.891 Personal history of nicotine dependence; Z95.5 Presence of coronary angioplasty implant and graft
CPT/HCPCS: 36415; 76642; 80053; 81000; 82010; 82962; 83605; 85025; 87040; 87070; 87075; 87077; 87186; 87205; 94640; 94760; 96361; 96365; 96367; 96372; 96375; G0378

== ENCOUNTER 2018-11-17 15:28 | Emergency (ER) | payer OTHER ==
[~2018-11-17] VITALS: Ht 157.5 cm; Wt 69.9 kg
[~2018-11-17 15:28] MED LIST changes: +CLIN150C17 PO; +CLIN300C11 PO; -DULO30CA48 PO; +DULO30CA49 PO; +PREG50CA2 PO
[2018-11-17] MEDS ORDERED: SULF1TAB35 PO (15:52)
[2018-11-17] MEDS ORDERED: MUPI1OIN6 TP (15:52)
--- NOTE | 2018-11-17 15:52 | ED Integumentary General ---
General Chief Complaint: Post OP Complications/Pain Stated Complaint: POST OP/L BREAST INFECTION Nursing Triage Note: pt has surgery on the left breast for a septic cyst a month ago. Today she has increased pain today et she has had to change her dressing more frequently today because it is draining more. Source: patient (DIFFICULT AND POOR HISTORIAN) History of Present Illness Date Seen by Provider: Nov 17, 2018 Time Seen by Provider: 15:40 Initial Comments PT ARRIVES VIA POV STATES SHE HAD SURGERY ON HER LEFT BREAST A MONTH AGO FOR A "CYST" THAT GOT INFECTED--ACTUALLY AN ABSCESS, DONE BY DR. DIAZ, PER PT--HOWEVER ON REVIEW OF OLD RECORD, IT WAS DR. GARCIA STATES SHE HAS NOT SEEN HIM SINCE SURGERY HAS BEEN SEEING DR. THOMAS "EVERY OTHER DAY" SINCE SURGERY TO GET WOUND PACKED. YET STATES SHE HAS NOT SEEN HER IN A WEEK, AND PACKING HAS NOT BEEN IN FOR UNKNOWN LENGTH OF TIME STATES SHE HAS JUST BEEN COVERING IT WITH A BAND AID THIS MORNING THE AREA STARTED "OOZING GREEN STUFF" AND HAS HAD TO CHANGE THE BANDAID 4 TIMES DAY, AND AREA IS MORE SORE TODAY NO FEVER NO REDNESS OR STREAKS STATES SHE WAS ON UNKNOWN ANTIBIOTIC, AND DOES NOT KNOW WHEN SHE FINISHED THEM--"3 OR 4 WEEKS AGO" PT HAS HAD BREAST ABSCESS I&D'S IN THE PAST MULTITUDE OF VISITS FOR VARIOUS COMPLAINTS--17 VISITS IN 2019 PCP:RICK, DR. THOMAS Allergies and Home Medications Allergies Coded Allergies: coconut (Verified Allergy, Severe, anaphylactic reaction, 08/31/18) ketorolac (Unverified Allergy, Unknown, 08/31/18) Home Medications Albuterol Sulfate 1 Puff Puff, 2 PUFF INH Q4H PRN for SHORTNESS OF BREATH, (Reported) 1 PUFF = 90 MCG Aspirin 81 Mg Tab.chew, 162 MG PO DAILY, (Reported) TAKES 2 (81MG) TABLETS Clindamycin HCl 300 Mg Capsule, 600 MG PO TID Prescribed by: APRIL AVILA on 10/15/18 1623 Clopidogrel Bisulfate 75 Mg Tablet, 75 MG PO DAILY, (Reported) Insulin Detemir 100 Unit/1 Ml Insuln.pen, 30 UNIT SQ BID, (Reported) Insulin Lispro 100 Unit/1 Ml Insuln.pen, 20 UNIT SQ TIDAC, (Reported) Liraglutide 0.6 Mg/0.1 Ml Pen.injctr, 1.8 MG SQ DAILY, (Reported) Metformin HCl 1,000 Mg Tablet, 1,000 MG PO BID, (Reported) Mupirocin 1 Gm Oin.pf.cony, 1 GM TP BID Prescribed by: ABRAHAM ELY on 11/17/18 1552 Pantoprazole Sodium 40 Mg Tablet.dr, 40 MG PO BID, (Reported) Pregabalin 50 Mg Capsule, 50 MG PO HS, (Reported) Sulfamethoxazole/Trimethoprim 1 Each Tablet, 1 EACH PO BID Prescribed by: ABRAHAM ELY on 11/17/18 1552 Patient Home Medication List Home Medication List Reviewed: Yes Review of Systems Review of Systems Constitutional: no symptoms reported Skin: see HPI Past Ixlkape-Ojvwjv-Srmnhh Hx Past Med/Social Hx: Reviewed and Corrections made Patient Social History Alcohol Use: Denies Use Recreational Drug Use: Yes (RX DRUG OVERDOSES/SUICIDE ATTEMPTS + EXCESSIVE USE) Drug of Choice: HX RX DRUG OVERDOSES/SUICIDE ATTEMPTS + EXCESSIVE USE Smoking Status: Current Everyday Smoker (1 PPD) Type Used: Cigarettes 2nd Hand Smoke Exposure: No Recent Foreign Travel: No Contact w/Someone Who Travel: No Recent Infectious Disease Expo: No Recent Hopitalizations: Yes (09/2018--SURGERY ON LEFT BREAST CYST) Immunizations Up To Date Tetanus Booster (TDap): Unknown PED Vaccines UTD: No Date of Pneumonia Vaccine: September 09, 2016 Date of Influenza Vaccine: Mar 26, 2018 Seasonal Allergies Seasonal Allergies: No Past Medical History Surgeries: Yes (LEFT BREAST ABSCESS 10/13/18; OTHER BREAST ABSCESS I&D'S; C- SECTION X 3; CARDIAC CATHS WITH STENT X 3 TO LAD; BACK SURGERY/DISCECTOMY) Breast, Cardiac, Section, Coronary Stent, Orthopedic, Tubal Ligation Respiratory: Yes (RESPIRATORY FAILURE WITH INTUBATION SECONDARY TO DRUG OVERDOSE 03/2018) Currently Using CPAP: No Currently Using BIPAP: No Cardiac: Yes (CARDIAC CATHS WITH STENT X 3 TO LAD; CHF) Chronic Edema/Swelling, Coronary Artery Disease, Heart Attack, High Cholesterol, Hypertension Neurological: Yes (RIGHT SIDED [place]) Neuropathy Reproductive Disorders: No Female Reproductive Disorders: Ovarian Cyst [employer] History: Tubal Ligation Sexually Transmitted Disease: No HIV/AIDS: No Genitourinary: No 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) Musculoskeletal: Yes (BILATERAL CARPAL TUNNEL; S/P BACK SURGERY/DISCECTOMY) Chronic Back Pain Endocrine: Yes Diabetes, Insulin dep HEENT: Yes (POOR DENTITION) Loss of Vision: Denies Hearing Impairment: Denies Cancer: No Psychosocial: Yes (INTENTIONAL DRUG OVERDOSE ON RX MEDS REQUIRING INTUBATION 04/12/18) Suicide Attempts Integumentary: Yes (INFECTED "CYST" TO LEFT BREAST--SURGERY 09/2018) Blood Disorders: No Adverse Reaction/Blood Tranf: No Family Medical History Cardiovascular disease 19 FATHER, Onset:Unknown 19 MOTHER, Onset:Unknown Diabetes mellitus 19 FATHER 19 MOTHER Heart Disease, Diabetes, Other Conditions/Hx Physical Exam Vital Signs Vital Signs - First Documented 11/17/18 15:32 Temp 98.1 Pulse 78 Resp 20 B/P (MAP) 137/101 (113) Pulse Ox 100 O2 Delivery Room Air Capillary Refill : Less Than 3 Seconds General Appearance: WD/WN, no apparent distress HEENT: other (POOR DENTITION--MULTIPLE MISSING TEETH) Cardiovascular: regular rate, rhythm Respiratory: normal breath sounds Skin: normal color, warm/dry, other (LEFT BREAST--SURGICAL SITE WITH THIN LIGHT GREEN DRAINAGE ON BANDAGE. NO SIGNFICANT ERYTHEMA, MILD INDURATION, NO AREAS OF FLUCTUANCE. NO STREAKS. ) Procedures/Interventions Date of ETT Placement: Apr 12, 2018 Time of ETT Placement: 405 Progress/Results/Core Measures Results/Orders My Orders Orders - ABRAHAM ELY DO Wound Culture (11/17/18 15:48) Vital Signs/I&O 11/17/18 15:32 Temp 98.1 Pulse 78 Resp 20 B/P (MAP) 137/101 (113) Pulse Ox 100 O2 Delivery Room Air Blood Pressure Mean: 113 Progress Progress Note : Progress Note CULTURE OF WOUND OBTAINED. ADVISED PT TO FOLLOW UP WITH HER SURGEON FOR FURTHER CARE Departure Impression Primary Impression: LEFT BREAST WOUND INFECTION Disposition: 01 HOME, SELF-CARE Condition: Stable Departure-Patient Inst. Referrals: LEIDY GARCIA HOLLY R MD (PCP/Family) Primary Care Physician Patient Instructions: Surgical Wound (DC), Wound Infection Add. Discharge Instructions: CLEAN WOUND TWICE A DAY WITH ANTIBACTERIAL SOAP AND WATER, APPLY ANTIBIOTIC OINTMENT AND FRESH DRESSING TWICE A DAY FOLLOW UP WITH DR. GARCIA IN 1-2 DAYS FOR FURTHER CARE Scripts Mupirocin (Mupirocin) 1 Gm Oin.pf.cony 1 GM TP BID, #22 TUBE Prov: ABRAHAM ELY DO 11/17/18 Sulfamethoxazole/Trimethoprim (Bactrim Ds Tablet) 1 Each Tablet 1 EACH PO BID, #20 TAB Prov: ABRAHAM ELY DO 11/17/18 ABRAHAM ELY DO Nov 17, 2018 15:52
[2018-11-17 16:13] VITALS: BP 148/74
== END 2018-11-17 16:13 | disposition home or self-care (01) ==
LOC: EDUNIT# 15:28 → ER 15:30
DX: T81.41XA Infection following a procedure, superficial incisional surgical site, initial encounter (principal); I10 Essential (primary) hypertension; E11.9 Type 2 diabetes mellitus without complications; I25.2 Old myocardial infarction; E78.00 Pure hypercholesterolemia, unspecified; I25.10 Atherosclerotic heart disease of native coronary artery without angina pectoris; G62.9 Polyneuropathy, unspecified; F17.210 Nicotine dependence, cigarettes, uncomplicated; F19.10 Other psychoactive substance abuse, uncomplicated; Z95.5 Presence of coronary angioplasty implant and graft; Z98.51 Tubal ligation status; Z88.6 Allergy status to analgesic agent; Z91.5 Personal history of self-harm; Z79.82 Long term (current) use of aspirin; Z79.02 Long term (current) use of antithrombotics/antiplatelets; Z79.4 Long term (current) use of insulin; Z82.49 Family history of ischemic heart disease and other diseases of the circulatory system
CPT/HCPCS: 87070; 87077; 87186; 87205; 99282